=== PATIENT | female | born 1965 | race Caucasian/White ===

== ENCOUNTER 2016-10-11 13:30 | Emergency (ER) | payer OTHER ==
[~2016-10-11 13:30] MED LIST: AZIT250T6 PO; BENZ100C PO; CYCL10TA2 PO; CYCL5TAB PO; DULO20CA PO; GABA-586 PO; METH-37 PO; NITR100C62 PO; PRED20TA PO; PRED50TA PO; PROAIR RESPICL90 MCG IH; SIMV10TA3 PO; TRAM-29 PO; TRAM50TA PO
--- NOTE | 2016-10-11 14:25 | PHYS DOC ---
Past Medical History Past Medical History: Arthritis, Asthma, Depression, High Cholesterol, [place], Other Additional Past Medical Histor: CHRONIC BACK PAIN,R LEG FX Past Surgical History: Hysterectomy, Tubal ligation, Other Additional Past Surgical Histo: BACK, LEFT ELBOW Alcohol Use: None Drug Use: None Adult General Chief Complaint Chief Complaint: PAIN CONTROL HPI HPI Patient is a 51 year old female presents with chest pain, back pain, leg pain. Patient well-known to the emergency department for visits for pain. Chronic pain and leg low back. No trauma or other inciting event. The chest pain she says she has been having for the past 7 days. She describes an aching pain without clear aggravating or alleviating factors. She has taken some hydrocodone at home with insufficient relief. No other acute complaints. Review of Systems Review of Systems Constitutional: Denies fever or chills Eyes: Denies change in visual acuity or eye pain HENT: Denies nasal congestion or sore throat Respiratory: Denies cough or shortness of breath Cardiovascular: Chest pain GI: Denies abdominal pain, nausea, vomiting, bloody stools or diarrhea : Denies dysuria or hematuria Musculoskeletal: Chronic low back pain, chronic LLE pain Integument: Denies rash or skin lesions Neurologic: Denies headache, focal weakness or sensory changes Current Medications Current Medications Current Medications Medications (Trade) Dose Ordered Sig/Jayy Start Time Stop Time Status Last Admin Dose Admin Aspirin (Children'S Aspirin) 324 mg 1X ONCE 10/11/16 14:30 10/11/16 14:47 DC 10/11/16 14:50 324 MG Cyclobenzaprine HCl (Flexeril) 10 mg 1X ONCE 10/11/16 14:30 10/11/16 14:31 DC 10/11/16 14:51 10 MG Tramadol HCl (Ultram) 50 mg 1X ONCE 10/11/16 14:30 10/11/16 14:31 DC 10/11/16 14:51 50 MG Allergies Allergies Allergies Coded Allergies Type Severity Reaction Last Updated Verified acetaminophen Allergy Intermediate rash 09/26/16 Yes ibuprofen Allergy Intermediate rash 09/19/16 No naproxen Allergy Intermediate rash 09/19/16 No Physical Exam Physical Exam Constitutional: Well developed, well nourished, no acute distress, non-toxic appearance. [] HENT: Normocephalic, atraumatic, bilateral external ears normal, oropharynx moist, no oral exudates, nose normal. [] Eyes: PERRLA, EOMI, conjunctiva normal, no discharge. [] Neck: Normal range of motion, no tenderness, supple, no stridor. [] Cardiovascular:Heart rate regular rhythm, no murmur [] Lungs & Thorax: Bilateral breath sounds clear to auscultation [] Abdomen: Bowel sounds normal, soft, no tenderness, no masses, no pulsatile masses. [] Skin: Warm, dry, no erythema, no rash. [] Back: No tenderness, no CVA tenderness. [] Extremities: No tenderness, no cyanosis, no clubbing, ROM intact, no edema. [] Neurologic: Alert and oriented X 3, normal motor function, normal sensory function, no focal deficits noted. [] Psychologic: Affect normal, judgement normal, mood normal. [] Current Patient Data Vital Signs Vital Signs Date Time Temp Pulse Resp B/P Pulse Ox O2 Delivery O2 Flow Rate FiO2 10/11/16 15:41 82 15 96 10/11/16 13:48 98.6 131/73 Room Air 98.6 Lab Values Laboratory Tests Test 10/11/16 14:40 White Blood Count 13.2x10^3/uL (4.0-11.0) H Red Blood Count 4.09x10^6/uL (3.50-5.40) Hemoglobin 11.7g/dL (12.0-15.5) L Hematocrit 36.9% (36.0-47.0) Mean Corpuscular Volume 90fL (79-100) Mean Corpuscular Hemoglobin 29pg (25-35) Mean Corpuscular Hemoglobin Concent 32g/dL (31-37) Red Cell Distribution Width 15.4% (11.5-14.5) H Platelet Count 436x10^3/uL (140-400) H Neutrophils (%) (Auto) 69% (31-73) Lymphocytes (%) (Auto) 22% (24-48) L Monocytes (%) (Auto) 6% (0-9) Eosinophils (%) (Auto) 3% (0-3) Basophils (%) (Auto) 0% (0-3) Neutrophils # (Auto) 9.1x10^3uL (1.8-7.7) H Lymphocytes # (Auto) 2.9x10^3/uL (1.0-4.8) Monocytes # (Auto) 0.8x10^3/uL (0.0-1.1) Eosinophils # (Auto) 0.4x10^3/uL (0.0-0.7) Basophils # (Auto) 0.1x10^3/uL (0.0-0.2) Sodium Level 140mmol/L (136-145) Potassium Level 3.8mmol/L (3.5-5.1) Chloride Level 103mmol/L (98-107) Carbon Dioxide Level 31mmol/L (21-32) Anion Gap 6 (6-14) Blood Urea Nitrogen 11mg/dL (7-20) Creatinine 0.7mg/dL (0.6-1.0) Estimated GFR (Cockcroft-Gault) 88.2 Glucose Level 96mg/dL (70-99) Calcium Level 8.9mg/dL (8.5-10.1) Troponin I Quantitative < 0.017ng/mL (0.000-0.055) Laboratory Tests 10/11/16 14:40 Laboratory Tests 10/11/16 14:40 EKG EKG EKG (my read): sinus rhythm, rate 77, normal axis, intervals wnl, no acute ischemic changes Radiology/Procedures Radiology/Procedures CXR: Impression: No acute thoracic findings. Course & Med Decision Making Course & Med Decision Making Pertinent Labs and Imaging studies reviewed. (See chart for details) Patient is 51-year-old female who presents with chest pain, back pain, leg pain. Concern for drug-seeking behavior. Will check EKG, chest x-ray, labs. Dose of oral pain medication or muscle relaxant ordered for pain relief while in the emergency department. EKG normal per my read. Chest x-ray without acute pathology. Labs notable for slight leukocytosis. Troponin within normal limits; given duration of chest pain, this is sufficient to rule out PA. Discussed results with patient. Patient discharged with prescription for muscle relaxant ( she reports allergies to acetaminophen, ibuprofen, naproxen). I told patient I would not send her home with prescription for narcotic pain medication given repeated visits for chronic pain and discussed with her the need to follow-up with primary care physician. Provided a list of primary care physicians in the area. Discharged home with instructions for follow-up and return precautions. Dragon Disclaimer Dragon Disclaimer This electronic medical record was generated, in whole or in part, using a voice recognition dictation system. Departure Departure Impression: Primary Impression: Chronic pain Disposition: HOME, SELF-CARE Condition: STABLE Referrals: NO PCP (PCP) Patient Instructions: Chronic Back Pain, Chronic Pain Additional Instructions: Thank you for allowing us to provide care today in the Emergency Department. Take the provided medication as directed. Use caution when taking this medication as it can make you drowsy. Schedule a follow up appointment with a primary care doctor using the provided list. It is very important that you begin seeing a doctor that can help you with your chronic medical problems. Return promptly to the Emergency Department if you develop any new or concerning symptoms. Scripts Cyclobenzaprine Hcl 10 Mg [id number] Mg PO TID PRN MUSCLE SPASMS #15 TAB Prov:SHELLEY TOTH MD 10/11/16 SHELLEY TOTH MD Oct 11, 2016 14:24
[2016-10-11] MEDS ORDERED: ASPIRIN 81 MG TAB.CHEW PO ONE (14:30)
[2016-10-11] MEDS ORDERED: TRAMADOL 50 MG TABLET. PO ONE (14:30)
[2016-10-11] MEDS ORDERED: CYCLOBENZAPRINE 10 MG TABLET. PO ONE (14:30)
--- NOTE | 2016-10-11 14:57 | RAD ---
Indication: Chest pain and cough for 6 days Technique: Two-view chest radiograph was obtained. Comparison is from September 26, 2016. Findings: The lungs are clear. The cardiopulmonary silhouette is within normal limits. There is no pleural effusion. The bony structures are intact. Leads overlie the patient. Impression: No acute thoracic findings.
[2016-10-11 15:00] LABS: BASO # 0.1 x10^3/uL (0.0-0.2); BASO % 0 % (0-3); EOS % 3 % (0-3); HEMATOCRIT 36.9 % (36.0-47.0); HEMOGLOBIN 11.7 g/dL (12.0-15.5); LYMPH # 2.9 x10^3/uL (1.0-4.8); LYMPH % 22 % (24-48); MEAN CORPUSCULAR HEMOGLOBIN 29 pg (25-35); MEAN CORPUSCULAR HGB CONC 32 g/dL (31-37); MEAN CORPUSCULAR VOLUME 90 fL (79-100); MONO % 6 % (0-9); NEUT % 69 % (31-73); PLATELET COUNT 436 x10^3/uL (140-400); RED BLOOD COUNT 4.09 x10^6/uL (3.50-5.40); RED CELL DISTRIBUTION WIDTH 15.4 % (11.5-14.5); WHITE BLOOD COUNT 13.2 x10^3/uL (4.0-11.0)
[2016-10-11 15:05] LABS: CALCIUM 8.9 mg/dL (8.5-10.1); CREATININE 0.7 mg/dL (0.6-1.0); GFR 88.2; POTASSIUM 3.8 mmol/L (3.5-5.1)
[2016-10-11 15:11] VITALS: BP 123/75
[2016-10-11] MEDS ORDERED: CYCL10TA2 PO (16:07)
--- NOTE | 2016-10-11 17:24 | EKG ---
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
== END 2016-10-11 16:18 | disposition home or self-care (01) ==
LOC: ER 13:30
DX: G89.29 Other chronic pain (principal); R07.9 Chest pain, unspecified; M54.5 Low back pain; M79.605 Pain in left leg; E78.00 Pure hypercholesterolemia, unspecified; I25.2 Old myocardial infarction; J45.909 Unspecified asthma, uncomplicated; M19.90 Unspecified osteoarthritis, unspecified site; Z88.6 Allergy status to analgesic agent
CPT/HCPCS: 36415; 71020; 80048; 84484; 85027; 93005; 99285-25

== ENCOUNTER 2016-10-15 17:25 | Emergency (ER) | payer OTHER ==
[2016-10-15] MEDS ORDERED: MORPHINE SULFATE 2 MG/ML DISP.SYRIN. IV PRN (18:45)
[2016-10-15] MEDS ORDERED: ASPIRIN 81 MG TAB.CHEW PO ONE (18:45)
[2016-10-15] MEDS ORDERED: NITROGLYCERIN SUBLINGUAL 0.4 MG BOTTLE OF 25. SL PRN (18:45)
[2016-10-15 19:03] VITALS: BP 154/88
[2016-10-15 19:27] LABS: POTASSIUM ISTAT 4.2 mmol/L (3.5-5.0)
--- NOTE | 2016-10-15 19:56 | PHYS DOC ---
Past Medical History Past Medical History: Arthritis, Asthma, Depression, High Cholesterol, [place], Other Additional Past Medical Histor: CHRONIC BACK PAIN,R LEG FX Past Surgical History: Hysterectomy, Tubal ligation, Other Additional Past Surgical Histo: BACK, LEFT ELBOW Alcohol Use: None Drug Use: None Adult General Chief Complaint Chief Complaint: CHEST PAIN HPI HPI 51-year-old female presenting the emergency department with chest pain for the past 6 days. It is worse with breathing. She has a history of bronchitis. Pain is sharp worse with deep breaths and cough. No alleviating doctors present. She denies unilateral leg swelling hemoptysis personal or family history of DVT. She denies any blood clotting disorders. She denies recent surgery or immobilization. Review of Systems Review of Systems ROS negative for fevers chills abdominal pain nausea vomiting or diaphoresis. All other review of systems is negative unless otherwise noted in history of present illness. Current Medications Current Medications Current Medications Medications (Trade) Dose Ordered Sig/Jayy Start Time Stop Time Status Last Admin Dose Admin Aspirin (Children'S Aspirin) 324 mg 1X ONCE 10/15/16 18:45 10/15/16 19:07 DC Morphine Sulfate 2 mg PRN Q1HR PRN 10/15/16 18:45 10/15/16 19:07 DC Nitroglycerin (Nitrostat) 0.4 mg PRN Q5MIN PRN 10/15/16 18:45 10/15/16 19:07 DC Allergies Allergies Allergies Coded Allergies Type Severity Reaction Last Updated Verified acetaminophen Allergy Intermediate rash 09/26/16 Yes ibuprofen Allergy Intermediate rash 09/19/16 No naproxen Allergy Intermediate rash 09/19/16 No Physical Exam Physical Exam Constitutional: Well developed, well nourished, no acute distress, non-toxic appearance. HENT: Normocephalic, atraumatic, bilateral external ears normal, oropharynx moist, no oral exudates, nose normal. [] Eyes: PERRLA, EOMI, conjunctiva normal, no discharge. Neck: Normal range of motion, no tenderness, supple, no stridor. [] Cardiovascular:Heart rate regular rhythm, no murmur Lungs & Thorax: Bilateral breath sounds clear to auscultation [] Abdomen: Bowel sounds normal, soft, no tenderness, no masses, no pulsatile masses. [] Skin: Warm, dry, no erythema, no rash. Back: No tenderness, no CVA tenderness. [] Extremities: No tenderness, no cyanosis, no clubbing, ROM intact, no edema. Neurologic: Alert and oriented X 3, normal motor function, normal sensory function, no focal deficits noted. Psychologic: Affect normal, judgement normal, mood normal. [] Current Patient Data Vital Signs Vital Signs Date Time Temp Pulse Resp B/P Pulse Ox O2 Delivery O2 Flow Rate FiO2 10/15/16 19:03 97.9 80 12 154/88 100 Room Air 97.9 Lab Values Laboratory Tests Test 10/15/16 19:21 10/15/16 19:25 POC Troponin I 0.00ng/ml (<0.08) POC Hemoglobin 11.6g/dL (12-15) L POC Hematocrit 34% (36-40) L POC Sodium 141mmol/L (135-145) POC Potassium 4.2mmol/L (3.5-5.0) POC Chloride 105mmol/L (98-110) POC Total CO2 25mmol/L (23-32) Anion Gap 17mmol/L (6-14) H POC Blood Urea Nitrogen 19mg/dL (8-26) POC Creatinine 0.8mg/dL (0.5-1.4) Glucose Level 94mg/dL (70-99) POC Ionized Calcium (Fal[place]i) 1.11mmol/L (1.13-1.32) L Laboratory Tests 10/15/16 19:25 EKG EKG []EKG shows sinus rhythm with regular rate. Normal intervals. Normal axis. ST segments are congruent. Not suggestive of ACS. Reviewed by myself. Radiology/Procedures Radiology/Procedures Chest x-ray shows possible left lower lobe infiltrate. No pneumothorax. Course & Med Decision Making Course & Med Decision Making Pertinent Labs and Imaging studies reviewed. (See chart for details) 51-year-old female presenting to the emergency department with cough for the past week with chest pain. Vital signs afebrile. Unremarkable. Physical exam largely unremarkable. Labs showed negative troponin with the mild anemia. Otherwise were unremarkable. The patient's chest x-ray was consistent with a left lower lobe pneumonia. EKG was unremarkable. The patient was discharged home on azithromycin to follow-up with her PCP over the next 2-5 days. Dragon Disclaimer Dragon Disclaimer This electronic medical record was generated, in whole or in part, using a voice recognition dictation system. Departure Departure Impression: Primary Impression: Cough Additional Impressions: Chest pain PNA (pneumonia) Disposition: 01 HOME, SELF-CARE Condition: STABLE Referrals: NO PCP (PCP) TONIO RUIZ MD 2-3 DAYS Patient Instructions: Chest Pain (Nonspecific) Additional Instructions: Thank you for allowing us to participate in your care today. Followup with your primary care physician in 3 days if your symptoms do not improve. If you do not have a primary care provider you can ask for a list of our primary care providers. Return to the emergency department you have any new or concerning findings. This should be evaluated by the primary care physician and any necessary consulting services for continued management within a few days after discharge. Return to emergency room if you have any new or concerning symptoms including but not limited to fever, chills, nausea, vomiting, intractable pain, any new rashes, chest pain, shortness of air, uncontrolled bleeding, difficulty breathing, and/or vision loss. Scripts Azithromycin (Azithromycin Tablet)250 Mg [id number] Mg PO DAILY ANTI-BIOTIC #6 TAB Take 2 tablets today and then take one tablet daily to finish your prescription. Prov:HANNAH ORTIZ MD 10/15/16 Problem Qualifiers HANNAH ORTIZ MD Oct 15, 2016 19:56
[2016-10-15] MEDS ORDERED: AZIT250T6 PO (20:02)
--- NOTE | 2016-10-15 21:28 | EKG ---
[facility] [address] [place] [address] Test Date: 2016-10-15 Test Time: 17:35:38 Pat Name: JACKY GLASER Department: Room: Gender: Female Poly Operator: : 1965 Requested By: HANNAH ORTIZ Order Number: [id number] Reading MD: Connie Arredondo Measurements Intervals [place] Rate: 91 P: 38 MA: 152 QRS: 35 QRSD: 78 T: 35 QT: 338 QTc: 417 Interpretive Statements SINUS RHYTHM NORMAL ECG RI6.01 Unconfirmed report Compared to ECG 10/11/2016 15:10:57 No significant changes Electronically Signed On 10-18-2016 23:27:30 ENGINEERING ADMINISTRATOR by Connie Arredondo
--- NOTE | 2016-10-16 08:30 | RAD ---
Indication chest pain. A single view of the chest was obtained and is compared to a study 4 days earlier. The heart and pulmonary vessels appear normal. The lungs are clear. There has not been a significant change in the appearance of the chest compared to the prior exam. IMPRESSION: No acute or focal process. No significant change
== END 2016-10-15 20:09 | disposition home or self-care (01) ==
LOC: ER 17:25
DX: J18.9 Pneumonia, unspecified organism (principal); R07.1 Chest pain on breathing; R05 Cough; J45.909 Unspecified asthma, uncomplicated; E78.00 Pure hypercholesterolemia, unspecified; G89.29 Other chronic pain; I25.2 Old myocardial infarction; M19.90 Unspecified osteoarthritis, unspecified site; Z88.6 Allergy status to analgesic agent
CPT/HCPCS: 71010; 80047; 84484; 93005; 99284-25

== ENCOUNTER 2016-10-16 04:31 | Emergency (ER) | payer OTHER ==
[~2016-10-16] VITALS: Ht 165.1 cm; Wt 90.7 kg
[2016-10-16 04:38] VITALS: BP 145/85
--- NOTE | 2016-10-16 04:41 | PHYS DOC ---
Past Medical History Past Medical History: Arthritis, Asthma, Depression, High Cholesterol, [place], Other Additional Past Medical Histor: CHRONIC BACK PAIN,R LEG FX Past Surgical History: Hysterectomy, Tubal ligation, Other Additional Past Surgical Histo: BACK, LEFT ELBOW Alcohol Use: None Drug Use: None Adult General Chief Complaint Chief Complaint: COUGH HPI HPI Patient is a 51 year old female who presents with continued cough since evaluation on 10/15/2016. She notes blood streaking in her sputum tonight, so she called EMS. She notes central chest pain with cough. She denies dyspnea, leg pain or swelling, palpitations, diaphoresis, nausea or vomiting, fever or chills. She also notes chronic back pain and is asking for narcotic pain medicine. She was prescribed azithromycin on 10/15/2016 from this emergency department and she has not filled this prescription yet. Review of Systems Review of Systems Constitutional: Denies fever or chills [] Eyes: Denies change in visual acuity, redness, or eye pain [] HENT: Denies nasal congestion or sore throat [] Respiratory: Denies shortness of breath [] Cardiovascular: No additional information not addressed in HPI [] GI: Denies abdominal pain, nausea, vomiting, bloody stools or diarrhea [] : Denies dysuria or hematuria [] Musculoskeletal: Denies joint pain [] Integument: Denies rash or skin lesions [] Neurologic: Denies headache, focal weakness or sensory changes [] Endocrine: Denies polyuria or polydipsia [] Allergies Allergies Allergies Coded Allergies Type Severity Reaction Last Updated Verified acetaminophen Allergy Intermediate rash 09/26/16 Yes ibuprofen Allergy Intermediate rash 09/19/16 No naproxen Allergy Intermediate rash 09/19/16 No Physical Exam Physical Exam Constitutional: Well developed, well nourished, no acute distress, non-toxic appearance. [] HENT: Normocephalic, atraumatic, bilateral external ears normal, oropharynx moist, no oral exudates, nose normal. [] Eyes: PERRLA, EOMI. [] Neck: Normal range of motion, supple. [] Cardiovascular:Heart rate regular rhythm [] Lungs & Thorax: Bilateral breath sounds clear to auscultation [] Abdomen: Bowel sounds normal, soft, no tenderness. [] Skin: Warm, dry, no erythema, no rash. [] Back: Normal range of motion. [] Extremities: No tenderness, ROM intact, no edema, no palpable cord. Ambulatory with no visible discomfort or dyspnea. [] Neurologic: Alert and oriented X 3, normal motor function, normal sensory function, no focal deficits noted. [] Psychologic: Affect normal, judgement normal, mood normal. [] Course & Med Decision Making Course & Med Decision Making Pertinent Labs and Imaging studies reviewed. (See chart for details) Upon review of her records, she was given azithromycin yesterday for cough and concern of left lower lobe pneumonia. Her sputum is blood streaked minimally. I reassured her that this will improve if she takes her antibiotics as prescribed. She continues to ask for narcotic pain medicine for her chronic back pain. I have discussed we will not treat chronic pain through the emergency department with narcotic pain medicines. I encouraged her to follow- up with her primary care doctor. Return precautions given. She understands and agrees with plan. Dragon Disclaimer Dragon Disclaimer This electronic medical record was generated, in whole or in part, using a voice recognition dictation system. Departure Departure Impression: Primary Impression: Cough Additional Impression: Drug-seeking behavior Disposition: 01 HOME, SELF-CARE Condition: STABLE Referrals: NO PCP (PCP) Patient Instructions: Bronchitis, [id number] Additional Instructions: Take the antibiotics you were prescribed yesterday. Follow-up with your primary care doctor for management of long-term pain. Return for any concerns. Problem Qualifiers Myke CARRERO MD Oct 16, 2016 04:41
== END 2016-10-16 04:45 | disposition home or self-care (01) ==
LOC: ER 04:31
DX: R05 Cough (principal); R07.89 Other chest pain; M54.9 Dorsalgia, unspecified; G89.29 Other chronic pain; J45.909 Unspecified asthma, uncomplicated; M19.90 Unspecified osteoarthritis, unspecified site; E78.00 Pure hypercholesterolemia, unspecified; I25.2 Old myocardial infarction; Z76.5 Malingerer [conscious simulation]; Z98.51 Tubal ligation status; Z90.710 Acquired absence of both cervix and uterus; Z88.6 Allergy status to analgesic agent; Z88.8 Allergy status to other drugs, medicaments and biological substances
CPT/HCPCS: 99282; 99283

== ENCOUNTER 2016-11-07 15:55 | Emergency (ER) | payer OTHER ==
[~2016-11-07] VITALS: Ht 152.4 cm; Wt 90.7 kg
[2016-11-07 16:05] VITALS: BP 116/78
--- NOTE | 2016-11-07 16:18 | PHYS DOC ---
Past Medical History Past Medical History: Arthritis, Asthma, Depression, High Cholesterol, [place], Other Additional Past Medical Histor: CHRONIC BACK PAIN,R LEG FX Past Surgical History: Hysterectomy, Tubal ligation, Other Additional Past Surgical Histo: BACK, LEFT ELBOW Alcohol Use: None Drug Use: None Adult General Chief Complaint Chief Complaint: MULTIPLE COMPLAINTS HPI HPI Patient is a 51 year old female well known to the ED who presents with acute on chronic chest, back, and LLE pain. Patient reports since this morning she has had increase of the chronic aching pain she feels in her chest, back, and LLE. No SOB. No clear inciting or aggravating factors. She took a baby ASA this morning but has not taken anything for pain as she says she has run out of pain medication at home. Patient says she has an appointment with a primary care physician in November but is unable to wait that long to get pain medicine. Review of Systems Review of Systems Constitutional: Denies fever or chills Eyes: Denies change in visual acuity or eye pain HENT: Denies nasal congestion or sore throat Respiratory: Denies cough or shortness of breath Cardiovascular: Acute on chronic anterior chest pain GI: Denies abdominal pain, nausea, vomiting, bloody stools or diarrhea : Denies dysuria or hematuria Musculoskeletal: Back pain, LLE pain Integument: Denies rash or skin lesions Neurologic: Denies headache, focal weakness or sensory changes Current Medications Current Medications Current Medications Medications (Trade) Dose Ordered Sig/Jayy Start Time Stop Time Status Last Admin Dose Admin Aspirin (Children'S Aspirin) 324 mg 1X ONCE 11/07/16 16:45 11/07/16 16:46 DC 11/07/16 16:32 324 MG Tramadol HCl (Ultram) 50 mg 1X ONCE 11/07/16 17:45 11/07/16 17:45 DC 11/07/16 17:34 50 MG Allergies Allergies Allergies Coded Allergies Type Severity Reaction Last Updated Verified acetaminophen Allergy Intermediate rash 09/26/16 Yes ibuprofen Allergy Intermediate rash 09/19/16 No naproxen Allergy Intermediate rash 09/19/16 No Physical Exam Physical Exam Constitutional: Well developed, well nourished, no acute distress, non-toxic appearance HENT: Normocephalic, atraumatic, bilateral external ears normal Eyes: EOMI, conjunctiva normal, no discharge Neck: Normal range of motion, no stridor Cardiovascular: Heart rate normal, regular rhythm, no murmur Lungs & Thorax: Bilateral breath sounds clear to auscultation Abdomen: Bowel sounds normal, soft, non-distended, no TTP Skin: Warm, dry, no erythema, no rash Back: Generalized TTP; no deformity, stepoff, or skin lesion noted Extremities: No obvious deformity, no edema. LLE with 2+ DP pulse, motor function and sensation to light touch intact Neurologic: Alert and oriented X 3, no gross deficits noted Current Patient Data Vital Signs Vital Signs Date Time Temp Pulse Resp B/P Pulse Ox O2 Delivery O2 Flow Rate FiO2 11/07/16 17:34 18 96 Room Air 11/07/16 16:05 98.2 109 116/78 98.2 Lab Values Laboratory Tests Test 11/07/16 16:27 White Blood Count 9.6x10^3/uL (4.0-11.0) Red Blood Count 4.40x10^6/uL (3.50-5.40) Hemoglobin 12.7g/dL (12.0-15.5) Hematocrit 39.2% (36.0-47.0) Mean Corpuscular Volume 89fL (79-100) Mean Corpuscular Hemoglobin 29pg (25-35) Mean Corpuscular Hemoglobin Concent 33g/dL (31-37) Red Cell Distribution Width 15.6% (11.5-14.5) H Platelet Count 454x10^3/uL (140-400) H Neutrophils (%) (Auto) 65% (31-73) Lymphocytes (%) (Auto) 26% (24-48) Monocytes (%) (Auto) 7% (0-9) Eosinophils (%) (Auto) 2% (0-3) Basophils (%) (Auto) 1% (0-3) Neutrophils # (Auto) 6.2x10^3uL (1.8-7.7) Lymphocytes # (Auto) 2.5x10^3/uL (1.0-4.8) Monocytes # (Auto) 0.6x10^3/uL (0.0-1.1) Eosinophils # (Auto) 0.2x10^3/uL (0.0-0.7) Basophils # (Auto) 0.1x10^3/uL (0.0-0.2) Sodium Level 141mmol/L (136-145) Potassium Level 3.8mmol/L (3.5-5.1) Chloride Level 103mmol/L (98-107) Carbon Dioxide Level 26mmol/L (21-32) Anion Gap 12 (6-14) Blood Urea Nitrogen 22mg/dL (7-20) H Creatinine 1.0mg/dL (0.6-1.0) Estimated GFR (Cockcroft-Gault) 58.5 Glucose Level 104mg/dL (70-99) H Calcium Level 9.2mg/dL (8.5-10.1) Troponin I Quantitative < 0.017ng/mL (0.000-0.055) Laboratory Tests 11/07/16 16:27 Laboratory Tests 11/07/16 16:27 EKG EKG EKG (my read): sinus tachycardia, rate 107, normal axis, no acute ischemic changes Radiology/Procedures Radiology/Procedures CXR (my read): No significant change from prior Course & Med Decision Making Course & Med Decision Making Pertinent Labs and Imaging studies reviewed. (See chart for details) Patient is 51 year old female who presents with c/o acute on chronic pain in her chest, back, and LLE. No concerning findings on physical exam. Concern for drug-seeking behavior. Will screen with EKG, CXR, labs. Oral pain medication ( tramadol) ordered for pain relief while in ED. EKG and CXR ok per my read. Labs unremarkable, including troponin wnl. Discussed results with patient. Will plan discharge home (without rx for pain meds) after discussion of importance of seeing PCP for management of chronic pain. Given instructions for follow up and return precautions. Dragon Disclaimer Dragon Disclaimer This electronic medical record was generated, in whole or in part, using a voice recognition dictation system. Departure Departure Impression: Primary Impression: Chronic pain Disposition: 01 HOME, SELF-CARE Condition: STABLE Referrals: NO PCP (PCP) Patient Instructions: Chronic Pain, Chronic Pain Management Additional Instructions: Thank you for allowing us to provide care today in the Emergency Department. Schedule a follow up appointment with a primary care doctor using the provided list for further management of your chronic pain. Return promptly to the Emergency Department if you develop any new or concerning symptoms. SHELLEY TOTH MD Nov 07, 2016 16:18
--- NOTE | 2016-11-07 16:32 | EKG ---
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
[2016-11-07 16:36] LABS: BASO # 0.1 x10^3/uL (0.0-0.2); BASO % 1 % (0-3); EOS % 2 % (0-3); HEMATOCRIT 39.2 % (36.0-47.0); HEMOGLOBIN 12.7 g/dL (12.0-15.5); LYMPH # 2.5 x10^3/uL (1.0-4.8); LYMPH % 26 % (24-48); MEAN CORPUSCULAR HEMOGLOBIN 29 pg (25-35); MEAN CORPUSCULAR HGB CONC 33 g/dL (31-37); MEAN CORPUSCULAR VOLUME 89 fL (79-100); MONO % 7 % (0-9); NEUT % 65 % (31-73); PLATELET COUNT 454 x10^3/uL (140-400); RED CELL DISTRIBUTION WIDTH 15.6 % (11.5-14.5); WHITE BLOOD COUNT 9.6 x10^3/uL (4.0-11.0)
[2016-11-07] MEDS ORDERED: ASPIRIN 81 MG TAB.CHEW PO ONE (16:45)
[2016-11-07] MEDS ORDERED: TRAMADOL 50 MG TABLET. PO ONE ×2 (16:45→17:45)
[2016-11-07 16:47] LABS: CALCIUM 9.2 mg/dL (8.5-10.1); GFR 58.5; POTASSIUM 3.8 mmol/L (3.5-5.1)
--- NOTE | 2016-11-08 08:14 | RAD ---
EXAM: Chest, 2 views. HISTORY: Chest pain. COMPARISON: 10/15/2016. FINDINGS: Frontal and lateral views of the chest are obtained. There is no infiltrate, effusion or pneumothorax. The heart is normal in size.. IMPRESSION: No acute pulmonary finding.
[2016-11-08] MEDS ORDERED: PRED50TA PO (17:59)
== END 2016-11-07 17:37 | disposition home or self-care (01) ==
LOC: ER 15:55
DX: G89.29 Other chronic pain (principal); M79.605 Pain in left leg; M54.9 Dorsalgia, unspecified; R07.89 Other chest pain; M19.90 Unspecified osteoarthritis, unspecified site; J45.909 Unspecified asthma, uncomplicated; F32.9 Major depressive disorder, single episode, unspecified; E78.00 Pure hypercholesterolemia, unspecified; I25.2 Old myocardial infarction; Z88.8 Allergy status to other drugs, medicaments and biological substances
CPT/HCPCS: 36415; 71020; 80048; 84484; 85027; 93005; 99285-25

== ENCOUNTER 2016-11-08 17:13 | Emergency (ER) | payer OTHER ==
[~2016-11-08] VITALS: Ht 165.1 cm; Wt 76.2 kg
[2016-11-08 17:35] VITALS: BP 134/80
[2016-11-08] MEDS ORDERED: PRED50TA PO (17:59)
--- NOTE | 2016-11-08 17:59 | PHYS DOC ---
Past Medical History Past Medical History: Arthritis, Asthma, Depression, High Cholesterol, [place], Other Additional Past Medical Histor: CHRONIC BACK PAIN,R LEG FX Past Surgical History: Hysterectomy, Tubal ligation, Other Additional Past Surgical Histo: BACK, LEFT ELBOW Alcohol Use: None Drug Use: None Adult General Chief Complaint Chief Complaint: CHEST PAIN HPI HPI 51-year-old female who presents after being seen yesterday for ongoing chest pain that she states is worse with cough and deep breathing. She was seen yesterday and had a chest x-ray and EKG and lab work that was unrevealing. She was sent out with any prescriptions as there is concern for drug-seeking behavior. At this time is requesting tramadol. I stated I would be willing to give her one dose in the department but that I would not be writing her any prescriptions. She is agreeable to this. She is allergic to every over-the- counter anti-inflammatory medication and so I offered her a dose of prednisone as I believe the etiology of her symptoms are likely inflammatory in nature. She states her pain is a 10 out of 10 on the pain scale. Review of Systems Review of Systems Constitutional: Denies fever or chills [] Eyes: Denies change in visual acuity, redness, or eye pain [] HENT: Denies nasal congestion or sore throat [] Respiratory: Has cough, denies shortness of breath [] Cardiovascular: No additional information not addressed in HPI [] GI: Denies abdominal pain, nausea, vomiting, bloody stools or diarrhea [] : Denies dysuria or hematuria [] Musculoskeletal: Has back pain, denies joint pain [] Integument: Denies rash or skin lesions [] Neurologic: Denies headache, focal weakness or sensory changes [] Endocrine: Denies polyuria or polydipsia [] Current Medications Current Medications Current Medications Medications (Trade) Dose Ordered Sig/[facility] Start Time Stop Time Status Last Admin Dose Admin Prednisone (Prednisone) 50 mg 1X ONCE 11/08/16 18:00 11/08/16 18:01 DC 11/08/16 17:56 50 MG Tramadol HCl (Ultram) 50 mg 1X ONCE 11/08/16 18:00 11/08/16 18:01 DC 11/08/16 17:56 50 MG Allergies Allergies Allergies Coded Allergies Type Severity Reaction Last Updated Verified acetaminophen Allergy Intermediate rash 09/26/16 Yes ibuprofen Allergy Intermediate rash 09/19/16 No naproxen Allergy Intermediate rash 09/19/16 No Physical Exam Physical Exam Constitutional: Well developed, well nourished, no acute distress, non-toxic appearance. [] HENT: Normocephalic, atraumatic, bilateral external ears normal, oropharynx moist, no oral exudates, nose normal. [] Eyes: PERRLA, EOMI, conjunctiva normal, no discharge. [] Neck: Normal range of motion, no tenderness, supple, no stridor. [] Cardiovascular:Heart rate regular rhythm, no murmur [] Lungs & Thorax: Bilateral breath sounds clear to auscultation [] Abdomen: Bowel sounds normal, soft, no tenderness, no masses, no pulsatile masses. [] Skin: Warm, dry, no erythema, no rash. [] Back: No tenderness, no CVA tenderness. [] Extremities: No tenderness, no cyanosis, no clubbing, ROM intact, no edema. [] Neurologic: Alert and oriented X 3, normal motor function, normal sensory function, no focal deficits noted. [] Psychologic: Affect normal, judgement normal, mood normal. [] Current Patient Data Vital Signs Vital Signs Date Time Temp Pulse Resp B/P Pulse Ox O2 Delivery O2 Flow Rate FiO2 11/08/16 17:56 14 95 Room Air 11/08/16 17:35 98.9 95 134/80 98.9 Lab Values Laboratory Tests Test 11/08/16 17:38 POC Troponin I 0.00ng/ml (<0.08) EKG EKG EKG as interpreted by me shows a sinus rhythm. This is a normal EKG with an approximate rate of 77 bpm. There are no obvious ischemic findings on this EKG. Radiology/Procedures Radiology/Procedures One view of the chest as interpreted by me does not reveal an acute cardiopulmonary process as interpreted by me. Course & Med Decision Making Course & Med Decision Making Pertinent Labs and Imaging studies reviewed. (See chart for details) This 51-year-old female had a negative troponin, EKG and chest x-ray as well did not reveal any acute abnormalities. Her symptoms are likely inflammatory in nature due to an ongoing cough. I prescribed her a course of prednisone and instructed her to follow closely with her primary care doctor for her ongoing pain as well as her chronic back pain. She was discharged without incident. Zeus Disclaimer Fredyon Disclaimer This electronic medical record was generated, in whole or in part, using a voice recognition dictation system. Departure Departure Impression: Primary Impression: Costochondritis Additional Impression: Bronchitis Disposition: 01 HOME, SELF-CARE Condition: IMPROVED Referrals: NO PCP (PCP) Patient Instructions: Costochondritis, [id number] Additional Instructions: Please take your steroid as prescribed for your chest pain. Follow up with your primary doctor in the next 2-3 days for your pain. Return to the ER if you develop any worsening of your symptoms. Scripts Prednisone 50 Mg Tablet1 Tab PO DAILY #5 TAB Prov:BRANNON GERARDO DO 11/08/16 Problem Qualifiers BRANNON GERARDO DO Nov 08, 2016 17:59
[2016-11-08] MEDS ORDERED: PREDNISONE 20 MG TABLET PO ONE (18:00)
[2016-11-08] MEDS ORDERED: TRAMADOL 50 MG TABLET. PO ONE (18:00)
--- NOTE | 2016-11-09 06:35 | EKG ---
[facility] [address] [place] [address] Test Date: 2016-11-08 Test Time: 17:32:03 Pat Name: JACKY GLASER Department: Room: Gender: F Human Service Coordinator: : 1965 Requested By: BRANNON GERARDO Order Number: [id number] Reading MD: Jose M Red Measurements Intervals [place] Rate: 77 P: 15 MT: 150 QRS: 51 QRSD: 80 T: 49 QT: 340 QTc: 386 Interpretive Statements SINUS RHYTHM Electronically Signed On 11-09-2016 10:44:03 TEACHER EDUCATION INSTRUCTOR by Jose M Red
--- NOTE | 2016-11-09 08:06 | RAD ---
Portable chest, 11/08/2016: History: Chest pain Comparison is made to a study from 11/07/2016. The heart size and pulmonary vascularity are normal. There is calcific plaquing of aorta. No pulmonary infiltrates are seen. There is no evidence of pleural fluid. Mild spurring is present in the spine IMPRESSION: No acute cardiopulmonary abnormality is detected.
== END 2016-11-08 18:05 | disposition home or self-care (01) ==
LOC: ER 17:13
DX: M94.0 Chondrocostal junction syndrome [Tietze] (principal); J40 Bronchitis, not specified as acute or chronic; G89.29 Other chronic pain; M19.90 Unspecified osteoarthritis, unspecified site; J45.909 Unspecified asthma, uncomplicated; F32.9 Major depressive disorder, single episode, unspecified; E78.00 Pure hypercholesterolemia, unspecified; I25.2 Old myocardial infarction; Z88.8 Allergy status to other drugs, medicaments and biological substances
CPT/HCPCS: 71010; 84484; 93005; 99284; J7512

== ENCOUNTER 2016-11-22 12:48 | Emergency (ER) | payer OTHER ==
[2016-11-22] MEDS ORDERED: OXYCODONE/APAP 5/325 TABLET. PO ONE (15:15)
[2016-11-22] MEDS ORDERED: DIPHTH,PERTUSS(ACELL),TET TOX 0.5 ML DISP.SYRIN. VAX IM ONE (15:15)
[2016-11-22] MEDS ORDERED: CYCLOBENZAPRINE 10 MG TABLET. PO ONE (15:15)
--- NOTE | 2016-11-22 15:23 | PHYS DOC ---
Past Medical History Past Medical History: Arthritis, Asthma, Depression, High Cholesterol, [place], Other Additional Past Medical Histor: CHRONIC BACK PAIN,R LEG FX Past Surgical History: Hysterectomy, Tubal ligation, Other Additional Past Surgical Histo: BACK, LEFT ELBOW Alcohol Use: None Drug Use: None Adult General Chief Complaint Chief Complaint: LOWER EXTREMITY SWELLING HPI HPI Patient is a 51 year old female with history of high cholesterol, depression, anxiety, who presents with bilateral lower extremity swelling and redness of the right lower leg that she noted yesterday. Patient denies any trauma. Denies any fever. She is also complaining of a sore throat for 2 days. Patient denies any coughing or congestion. Denies any fever. She is also complaining of her chronic bilateral low back pain radiating to bilateral lower extremities. Denies any loss of bowel bladder function. Denies any numbness or tingling to bilateral lower extremities. Review of Systems Review of Systems Constitutional: Denies fever or chills [] Eyes: Denies change in visual acuity, redness, or eye pain [] HENT: sore throat [] Respiratory: Denies cough or shortness of breath [] Cardiovascular: No additional information not addressed in HPI [] GI: Denies abdominal pain, nausea, vomiting, bloody stools or diarrhea [] : Denies dysuria or hematuria [] Musculoskeletal: Chronic low back pain Integument: Bilateral lower extremity swelling with redness on the right leg Neurologic: Denies headache, focal weakness or sensory changes [] Endocrine: Denies polyuria or polydipsia [] Current Medications Current Medications Current Medications Medications (Trade) Dose Ordered Sig/[facility] Start Time Stop Time Status Last Admin Dose Admin Cyclobenzaprine HCl (Flexeril) 10 mg 1X ONCE 11/22/16 15:15 11/22/16 15:16 DC 11/22/16 15:26 10 MG Diphtheria/ Tetanus/Acell Pertussis (Boostrix) 0.5 ml ONCE ONCE 11/22/16 15:15 11/22/16 15:16 DC 11/22/16 15:44 0.5 ML Oxycodone/ Acetaminophen (Percocet 5/325) 2 tab 1X ONCE 11/22/16 15:15 11/22/16 15:16 DC 11/22/16 15:26 2 TAB Allergies Allergies Allergies Coded Allergies Type Severity Reaction Last Updated Verified acetaminophen Allergy Intermediate rash 09/26/16 Yes ibuprofen Allergy Intermediate rash 09/19/16 No naproxen Allergy Intermediate rash 09/19/16 No Physical Exam Physical Exam Constitutional: Well developed, well nourished, no acute distress, non-toxic appearance. [] HENT: Normocephalic, atraumatic, bilateral external ears normal, oropharynx moist, no oral exudates, nose normal. [] Eyes: PERRLA, EOMI, conjunctiva normal, no discharge. [] Neck: Normal range of motion, no tenderness, supple, no stridor. [] Cardiovascular:Heart rate regular rhythm, no murmur [] Lungs & Thorax: Bilateral breath sounds clear to auscultation [] Abdomen: Bowel sounds normal, soft, no tenderness, no masses, no pulsatile masses. [] Skin: Warm, dry, no erythema, no rash. [] Back: Mid lower lumbar spine with an old healed surgical incision. Diffuse tenderness paraspinal muscles of the bilateral lower lumbar spine, no midline tenderness, no CVA tenderness. [] Extremities: +2 right pedal edema, +1 left pedal edema, this scattered small amount of cellulitis of the right lower extremity. Left lower extremity with trace amount of cellulitis. Bilateral legs are warm to touch. +2 bilateral pedal pulses. Cap refill less than 2 seconds. Negative Homans sign bilaterally. Neurologic: Alert and oriented X 3, normal motor function, normal sensory function, no focal deficits noted. [] Psychologic: Affect normal, judgement normal, mood normal. [] Current Patient Data Vital Signs Vital Signs Date Time Temp Pulse Resp B/P Pulse Ox O2 Delivery O2 Flow Rate FiO2 11/22/16 15:26 14 99 11/22/16 14:36 98.3 100 Room Air 98.3 EKG EKG [] Radiology/Procedures Radiology/Procedures [] Course & Med Decision Making Course & Med Decision Making Pertinent Labs and Imaging studies reviewed. (See chart for details) Patient is in the ED with bilateral lower extremity swelling. She does have cellulitis on the right lower extremity as well as trace cellulitis on the left leg.She is also complaining of a sore throat and her chronic back pain. She was given tetanus shot in the ED. Preliminary red by radiologist tech for bilateral venous Dopplers is negative. Patient was discharged with clindamycin for 10 days. She was instructed to keep her lower extremity clean and dry. Follow-up with her own doctor in one week. Zeus Disclaimer Fredyon Disclaimer This electronic medical record was generated, in whole or in part, using a voice recognition dictation system. Departure Departure Impression: Primary Impression: Cellulitis of both lower extremities Additional Impressions: Chronic back pain Pharyngitis, acute Disposition: 01 HOME, SELF-CARE Condition: STABLE Referrals: NO PCP (PCP) Follow-up with your own doctor in the next 7 days Patient Instructions: Cellulitis Additional Instructions: You have cellulitis to bilateral lower extremities. We highly recommend you complete all your antibiotics. Follow-up with your own doctor in the next 7 days. Scripts Oxycodone/Apap 5-325 (Percocet 5-325 Mg Tablet)1 Each Tablet1-2 Tab PO Q4-6HRS # 14 TAB MUST FILL ANITIBIOTICS BEFORE PAIN MEDICINES Prov:MEMO NELSON APRN 11/22/16 Cyclobenzaprine Hcl 10 Mg Tablet1 Tab PO TID #30 TAB Prov:MEMO NELSON APRN 11/22/16 Clindamycin Hcl 150 Mg Capsule3 Cap PO TID #90 CAP Prov:MEMO NELSON APRN 11/22/16 Problem Qualifiers Additional Impressions: Chronic back pain Back pain location: low back pain Back pain laterality: unspecified Sciatica presence: without sciatica Qualified Code: M54.5 - Low back pain Pharyngitis, acute Pharyngitis/tonsillitis etiology: unspecified etiology Qualified Code: J02.9 - Acute pharyngitis, unspecified MEMO NELSON APRN Nov 22, 2016 15:23
[2016-11-22] MEDS ORDERED: OXYC-323 PO (16:00)
[2016-11-22] MEDS ORDERED: CYCL10TA2 PO (16:00)
[2016-11-22] MEDS ORDERED: CLIN-44 PO (16:00)
[2016-11-22 16:09] VITALS: BP 132/70
--- NOTE | 2016-11-22 16:10 | RAD ---
Bilateral lower extremity venous Doppler ultrasound exam HISTORY:Edema, leg swelling COMPARISON: None FINDINGS: Multiple grayscale and color images and spectral analysis waveform images were acquired of the bilateral lower extremity veins to evaluate for the presence of DVT. Normal compression, color-flow, and augmentation is demonstrated from the bilateral common femoral to the popliteal veins. There is normal phasicity. There is normal color flow of the proximal profunda femoris and greater saphenous veins. There is normal color flow in segments of calf veins. Impression: 1. There is no evidence of deep venous thrombosis from the bilateral common femoral to popliteal veins.
== END 2016-11-22 16:10 | disposition home or self-care (01) ==
LOC: ER 12:48
DX: L03.115 Cellulitis of right lower limb (principal); L03.116 Cellulitis of left lower limb; M54.5 Low back pain; J02.9 Acute pharyngitis, unspecified; E78.00 Pure hypercholesterolemia, unspecified; G89.29 Other chronic pain; F32.9 Major depressive disorder, single episode, unspecified; F41.9 Anxiety disorder, unspecified; M19.90 Unspecified osteoarthritis, unspecified site; J45.909 Unspecified asthma, uncomplicated; I25.2 Old myocardial infarction; Z90.710 Acquired absence of both cervix and uterus; Z98.51 Tubal ligation status; Z88.8 Allergy status to other drugs, medicaments and biological substances
CPT/HCPCS: 90471; 90715; 93970; 99284-25

== ENCOUNTER 2016-11-25 13:59 | Emergency (ER) | payer OTHER ==
[~2016-11-25] VITALS: Ht 165.1 cm; Wt 90.7 kg
[~2016-11-25 13:59] MED LIST changes: +CLIN-44 PO; +OXYC-323 PO
[2016-11-25 14:55] VITALS: BP 132/77
--- NOTE | 2016-11-25 15:08 | PHYS DOC ---
Past Medical History Past Medical History: Arthritis, Asthma, Depression, High Cholesterol, [place], Other Additional Past Medical Histor: CHRONIC BACK PAIN,R LEG FX Past Surgical History: Hysterectomy, Tubal ligation, Other Additional Past Surgical Histo: BACK, LEFT ELBOW Alcohol Use: None Drug Use: None Adult General Chief Complaint Chief Complaint: FLU SYMPTOM HPI HPI Patient is a 51 year old female who presents with her daughter for sore throat , fever, cough since yesterday.Daughter has same symptoms. Also c/o chronic back pain and that she is out of her Tramadol. Denies chest pain, shortness of air. No interventions prior to arrival. Review of Systems Review of Systems Constitutional: Fever 2 days Eyes: Denies change in visual acuity, redness, or eye pain HENT: nasal congestion or sore throat 2 days. Respiratory: Denies shortness of breath. COugh 2 days Cardiovascular: No additional information not addressed in HPI [] GI: Denies abdominal pain, nausea, vomiting, bloody stools or diarrhea : Denies dysuria or hematuria Musculoskeletal: Denies back pain or joint pain Integument: Denies rash or skin lesions Neurologic: Denies headache, focal weakness or sensory changes Endocrine: Denies polyuria or polydipsia Allergies Allergies Allergies Coded Allergies Type Severity Reaction Last Updated Verified acetaminophen Allergy Intermediate rash 09/26/16 Yes ibuprofen Allergy Intermediate rash 09/19/16 No naproxen Allergy Intermediate rash 09/19/16 No Physical Exam Physical Exam Constitutional: Well developed, well nourished, no acute distress, non-toxic appearance. HENT: Normocephalic, atraumatic, bilateral external ears normal, oropharynx moist, no oral exudates, nose normal. Tonsils 2+ without exudate. Eyes: PERRLA, EOMI, conjunctiva normal, no discharge. Neck: Normal range of motion, no tenderness, supple, no stridor. Cardiovascular:Heart rate regular rhythm, no murmur Lungs & Thorax: Bilateral breath sounds clear to auscultation Abdomen: Bowel sounds normal, soft, no tenderness, no masses, no pulsatile masses. Skin: Warm, dry, no erythema, no rash. Back: No CVA tenderness. Lumbar paraspinous tenderness, no midline tenderness Extremities: No tenderness, no cyanosis, no clubbing, ROM intact, no edema. Neurologic: Alert and oriented X 3, normal motor function, normal sensory function, no focal deficits noted. Psychologic: Affect normal, judgement normal, mood normal. Current Patient Data Vital Signs Vital Signs Date Time Temp Pulse Resp B/P Pulse Ox O2 Delivery O2 Flow Rate FiO2 11/25/16 14:55 98.2 71 18 96 Room Air 98.2 Lab Values Laboratory Tests Test 11/25/16 15:04 Influenza Type A Antigen Negative (NEGATIVE) Influenza Type B Antigen Negative (NEGATIVE) EKG EKG [] Radiology/Procedures Radiology/Procedures [] Impressions: 1. viral syndrome 2. Chronic back pain Course & Med Decision Making Course & Med Decision Making Pertinent Labs and Imaging studies reviewed. (See chart for details) [] Dragon Disclaimer Dragon Disclaimer This electronic medical record was generated, in whole or in part, using a voice recognition dictation system. Departure Departure Impression: Primary Impression: Viral syndrome Additional Impression: Chronic back pain Disposition: HOME, SELF-CARE Condition: STABLE Referrals: NO PCP (PCP) Patient Instructions: Back Pain, Adult, [id number], Viral Infections, Easy-To -Read Additional Instructions: Take medication as prescribed. Follow up with primary doctor in 1-2 days. return if problems or concerns Scripts Tramadol Hcl 50 Mg [id number] Mg PO Q6H PRN PAIN #20 TAB Prov:PHILLIP BRUNNER APRN 11/25/16 Problem Qualifiers PHILLIP BRUNNER APRN Nov 25, 2016 15:08
[2016-11-25 15:42] LABS: OBC FLU VALID
[2016-11-25] MEDS ORDERED: TRAM50TA PO (16:01)
[2016-11-26 07:28] LABS: NEGATIVE OBC STREP NEG; POSITIVE OBC STREP POS
== END 2016-11-25 16:23 | disposition home or self-care (01) ==
LOC: ER 13:59
DX: B34.9 Viral infection, unspecified (principal); G89.29 Other chronic pain; M54.5 Low back pain; J45.909 Unspecified asthma, uncomplicated; E78.00 Pure hypercholesterolemia, unspecified; M19.90 Unspecified osteoarthritis, unspecified site; I25.2 Old myocardial infarction; Z90.710 Acquired absence of both cervix and uterus; Z98.51 Tubal ligation status; Z88.6 Allergy status to analgesic agent; Z98.890 Other specified postprocedural states
CPT/HCPCS: 87070; 87804; 87880; 99284

== ENCOUNTER 2016-11-30 19:43 | Emergency (ER) | payer OTHER ==
[~2016-11-30] VITALS: Ht 170.2 cm; Wt 90.7 kg
[2016-11-30 22:15] VITALS: BP 137/69
[2016-11-30] MEDS ORDERED: TRAM-29 PO (23:01)
--- NOTE | 2016-11-30 23:02 | PHYS DOC ---
Past Medical History Past Medical History: Arthritis, Asthma, Depression, High Cholesterol, [place], Other Additional Past Medical Histor: CHRONIC BACK PAIN,R LEG FX Past Surgical History: Hysterectomy, Tubal ligation, Other Additional Past Surgical Histo: BACK, LEFT ELBOW Additional Information: Nonsmoker Alcohol Use: None Drug Use: None Adult General Chief Complaint Chief Complaint: LOWER BACK PAIN OR INJURY [facility] HPI Patient is a 51 year old female with history of chronic low back pain who presents for medication refill. She usually takes Ultram for her chronic pain. She has been out of her medication for 4 days. Her next appointment with her PCP is over a month away. She denies any new injury. She denies any change in the pain that is different from her chronic pain. The pain radiates down her left leg. She denies any incontinence or saddle anesthesia. She does not have any focal weakness or numbness, nausea, vomiting, abdominal pain, or urinary symptoms. Her PCP is Dr. Hernandez. Review of Systems Review of Systems Constitutional: Denies fever or chills. [] GI: Denies abdominal pain, nausea, vomiting. [] : Denies dysuria, hematuria or urinary frequency. [] Musculoskeletal: Reports chronic low back pain. Integument: Denies rash or skin lesions. [] Neurologic: Denies headache, focal weakness or sensory changes. Denies incontinence or saddle anesthesia. All systems reviewed and negative unless otherwise stated in the HPI. Allergies Allergies Allergies Coded Allergies Type Severity Reaction Last Updated Verified acetaminophen Allergy Intermediate rash 09/26/16 Yes ibuprofen Allergy Intermediate rash 09/19/16 No naproxen Allergy Intermediate rash 09/19/16 No Physical Exam Physical Exam Constitutional: Well developed, well nourished, no acute distress, non-toxic appearance. [] HENT: Normocephalic, atraumatic, oropharynx moist. [] Eyes: PERRLA, EOMI, conjunctiva normal, no discharge. [] Neck: Normal range of motion, no tenderness, supple, no stridor. [] Cardiovascular: Heart rate regular rhythm, no murmur. [] Lungs & Thorax: Bilateral breath sounds clear to auscultation without wheezes, rales, or rhonchi. [] Abdomen: Bowel sounds normal, soft, no tenderness, no masses, no pulsatile masses. [] Skin: Warm, dry, no erythema, no rash. [] Back: Lumbar midline tenderness, no CVA tenderness. Left lumbar paraspinal muscle tenderness. Extremities: No tenderness, ROM intact, no edema. 2+ DP pulses bilaterally. Light touch sensation intact and equal in both legs. Equal strength in the legs bilaterally. Neurologic: Alert and oriented X 3, normal motor function, normal sensory function, no focal deficits noted. [] Psychologic: Affect normal, judgement normal, mood normal. [] Current Patient Data Vital Signs Vital Signs Date Time Temp Pulse Resp B/P Pulse Ox O2 Delivery O2 Flow Rate FiO2 11/30/16 22:15 98.3 95 20 98 Room Air 98.3 EKG EKG [] Radiology/Procedures Radiology/Procedures [] Course & Med Decision Making Course & Med Decision Making Pertinent Labs and Imaging studies reviewed. (See chart for details) [] Dragon Disclaimer Dragon Disclaimer This electronic medical record was generated, in whole or in part, using a voice recognition dictation system. Departure Departure Impression: Primary Impression: Chronic low back pain Disposition: HOME, SELF-CARE Condition: STABLE Referrals: NO PCP (PCP) Patient Instructions: Back Pain, Adult, [id number], Chronic Back Pain Additional Instructions: Please take the prescribed pain medication as directed. Do not drive or operate heavy machinery while taking pain medication. Please follow-up with your primary care doctor for refills of your pain medications. Return to the emergency department if you have any new or concerning symptoms. Scripts Tramadol Hcl (Ultram)50 Mg [id number] Mg PO Q6H PRN PAIN #20 TAB Prov:LUCRETIA PRIETO 11/30/16 Problem Qualifiers Primary Impression: Chronic low back pain Back pain laterality: midline Sciatica presence: with sciatica Sciatica laterality: sciatica of left side Qualified Code: M54.42 - Lumbago with sciatica, left side LUCRETIA PRIETO Nov 30, 2016 23:02
== END 2016-11-30 23:09 | disposition home or self-care (01) ==
LOC: ER 19:43
DX: M54.42 Lumbago with sciatica, left side (principal); G89.29 Other chronic pain; J45.909 Unspecified asthma, uncomplicated; E78.00 Pure hypercholesterolemia, unspecified; F32.9 Major depressive disorder, single episode, unspecified; I25.2 Old myocardial infarction; M19.90 Unspecified osteoarthritis, unspecified site; Z90.710 Acquired absence of both cervix and uterus; Z98.51 Tubal ligation status; Z88.8 Allergy status to other drugs, medicaments and biological substances
CPT/HCPCS: 99283

== ENCOUNTER 2016-12-05 18:59 | Emergency (ER) | payer OTHER ==
[~2016-12-05] VITALS: Ht 167.6 cm; Wt 90.7 kg
[2016-12-05 19:54] VITALS: BP 137/69
[2016-12-05] MEDS ORDERED: OXYCODONE/APAP 5/325 TABLET. PO ONE (20:15)
[2016-12-05] MEDS ORDERED: DIPHENHYDRAMINE HCL 25 MG CAPSULE PO ONE (20:15)
[2016-12-05] MEDS ORDERED: METH-37 PO (20:49)
[2016-12-05] MEDS ORDERED: TRAM-29 PO (20:49)
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
== END 2016-12-05 20:55 | disposition home or self-care (01) ==
LOC: ER 18:59
DX: M54.32 Sciatica, left side (principal); M54.31 Sciatica, right side; G89.29 Other chronic pain; E78.00 Pure hypercholesterolemia, unspecified; F32.9 Major depressive disorder, single episode, unspecified; I25.2 Old myocardial infarction; M19.90 Unspecified osteoarthritis, unspecified site; J45.909 Unspecified asthma, uncomplicated; Z90.710 Acquired absence of both cervix and uterus; Z88.8 Allergy status to other drugs, medicaments and biological substances; Z88.6 Allergy status to analgesic agent
CPT/HCPCS: 99283; Q0163

== ENCOUNTER 2016-12-11 16:39 | Emergency (ER) | payer OTHER ==
[2016-12-11 17:30] VITALS: BP 142/72
[2016-12-11] MEDS ORDERED: TRAMADOL 50 MG TABLET. PO ONE (17:45)
--- NOTE | 2016-12-11 18:35 | PHYS DOC ---
Past Medical History Past Medical History: Arthritis, Asthma, Depression, High Cholesterol, [place], Other Additional Past Medical Histor: CHRONIC BACK PAIN,R LEG FX Past Surgical History: Hysterectomy, Tubal ligation, Other Additional Past Surgical Histo: BACK, LEFT ELBOW Smoking: Cigarettes Alcohol Use: None Drug Use: None Adult General Chief Complaint Chief Complaint: ANIMAL BITE HPI HPI Patient is a 51 year old female who presents with abrasions caused by Scratch to the left forearm just prior to arrival. Patient states that she was petting a cat into an animal carrier and the animal was trying to get away. She denies any bites. The patient also complains of her chronic back pain, for which she is seen here regularly. She denies any change in her back pain. She has an appointment with a new PCP on 12/17/16. Her tetanus immunization is not up-to- date. Review of Systems Review of Systems Constitutional: Denies fever or chills. [] GI: Denies abdominal pain, nausea, vomiting, bloody stools or diarrhea. [] : Denies dysuria, hematuria or urinary frequency. [] Musculoskeletal: Reports left forearm pain. Reports chronic low back pain without change. Integument: Denies rash or skin lesions. Reports abrasions to the left forearm. Neurologic: Denies headache, focal weakness or sensory changes. Denies incontinence or saddle anesthesia. Current Medications Current Medications Current Medications Medications (Trade) Dose Ordered Sig/[facility] Start Time Stop Time Status Last Admin Dose Admin Tramadol HCl (Ultram) 50 mg 1X ONCE 12/11/16 17:45 12/11/16 17:46 DC 12/11/16 18:11 50 MG Allergies Allergies Allergies Coded Allergies Type Severity Reaction Last Updated Verified acetaminophen Allergy Intermediate rash 09/26/16 Yes ibuprofen Allergy Intermediate rash 09/19/16 No naproxen Allergy Intermediate rash 09/19/16 No Physical Exam Physical Exam Constitutional: Well developed, well nourished, no acute distress, non-toxic appearance. [] HENT: Normocephalic, atraumatic, oropharynx moist. [] Eyes: PERRLA, EOMI, conjunctiva normal, no discharge. [] Neck: Normal range of motion, no tenderness, supple, no stridor. [] Skin: Warm, dry, no erythema, no rash. Multiple superficial abrasions to the left dorsal forearm. Back: Lumbar midline tenderness, no CVA tenderness. [] Extremities: Left ventral forearm tenderness, ROM intact, no edema. 2+ radial and ulnar pulses. Less than 2 second capillary refill in the fingers distally. Light touch sensation intact in the fingers. Neurologic: Alert and oriented X 3, normal motor function, normal sensory function, no focal deficits noted. [] Psychologic: Affect normal, judgement normal, mood normal. [] Current Patient Data Vital Signs Vital Signs Date Time Temp Pulse Resp B/P Pulse Ox O2 Delivery O2 Flow Rate FiO2 12/11/16 17:30 98.1 97 20 99 Room Air 98.1 EKG EKG [] Radiology/Procedures Radiology/Procedures [] Course & Med Decision Making Course & Med Decision Making Pertinent Labs and Imaging studies reviewed. (See chart for details) [] Dragon Disclaimer Dragon Disclaimer This electronic medical record was generated, in whole or in part, using a voice recognition dictation system. Departure Departure Impression: Primary Impression: Cat scratch of forearm Additional Impression: Chronic low back pain Disposition: HOME, SELF-CARE Condition: STABLE Referrals: NO PCP (PCP) Patient Instructions: Abrasion, [id number], Chronic Back Pain Additional Instructions: Please keep your scratches clean using soap and water. Cover with antibiotic ointment and a bandage. Follow-up with your primary care doctor if you notice redness, swelling, or yellow/green drainage from the wounds. Follow-up with your doctor for refill of your chronic back pain medication. Return to the emergency department if you have any new or concerning symptoms. Problem Qualifiers Primary Impression: Cat scratch of forearm Encounter type: initial encounter Laterality: left Qualified Code: S50.812A - Abrasion of left forearm, initial encounter Additional Impression: Chronic low back pain Back pain laterality: midline Sciatica presence: unspecified whether sciatica present Qualified Code: M54.5 - Low back pain LUCRETIA PRIETO Dec 11, 2016 18:35
[2016-12-11] MEDS ORDERED: DIPHTH,PERTUSS(ACELL),TET TOX 0.5 ML DISP.SYRIN. VAX IM ONE (18:45)
[2016-12-12] MEDS ORDERED: AMOX1TAB61 PO (13:11)
[2016-12-12] MEDS ORDERED: TRAM-29 PO (13:11)
== END 2016-12-11 18:43 | disposition home or self-care (01) ==
LOC: ER 16:39
DX: S50.812A Abrasion of left forearm, initial encounter (principal); M19.90 Unspecified osteoarthritis, unspecified site; J45.909 Unspecified asthma, uncomplicated; F32.9 Major depressive disorder, single episode, unspecified; E78.00 Pure hypercholesterolemia, unspecified; I25.2 Old myocardial infarction; G89.29 Other chronic pain; M54.9 Dorsalgia, unspecified; Z90.710 Acquired absence of both cervix and uterus; Z98.51 Tubal ligation status; F17.210 Nicotine dependence, cigarettes, uncomplicated; Z88.8 Allergy status to other drugs, medicaments and biological substances; W55.03XA Scratched by cat, initial encounter; Y93.89 Activity, other specified; Y92.89 Other specified places as the place of occurrence of the external cause; Y99.8 Other external cause status
CPT/HCPCS: 90471; 90715; 99283-25

== ENCOUNTER 2016-12-12 10:56 | Emergency (ER) | payer OTHER ==
[~2016-12-12] VITALS: Ht 165.1 cm; Wt 79.4 kg
[2016-12-12 11:54] VITALS: BP 136/85
[2016-12-12] MEDS ORDERED: TRAMADOL 50 MG TABLET. PO ONE (12:45)
--- NOTE | 2016-12-12 12:48 | PHYS DOC ---
Past Medical History Past Medical History: Arthritis, Asthma, Depression, High Cholesterol, [place], Other Additional Past Medical Histor: CHRONIC BACK PAIN,R LEG FX Past Surgical History: Hysterectomy, Tubal ligation, Other Additional Past Surgical Histo: BACK, LEFT ELBOW Alcohol Use: None Drug Use: None Adult General Chief Complaint Chief Complaint: ANIMAL BITE HPI HPI Patient is a 51 year old presents emergency department for the second time in the last 2 days. Patient was seen here last night stating that her cat had scratched her left arm. She was provided has had a shot and was discharged. Patient returns today with swelling to the left hand and index finger. Patient states she has having increased pain and discomfort. She does state she has a history of chronic back pain and is out of her back pain medication. Denies any numbness or tingling to extremities. She denies any drainage coming from the wounds. Review of Systems Review of Systems Constitutional: Denies fever or chills [] Eyes: Denies change in visual acuity, redness, or eye pain [] HENT: Denies nasal congestion or sore throat [] Respiratory: Denies cough or shortness of breath [] Cardiovascular: No additional information not addressed in HPI [] GI: Denies abdominal pain, nausea, vomiting, bloody stools or diarrhea [] : Denies dysuria or hematuria [] Musculoskeletal: Denies back pain or joint pain [] Integument: Denies rash or skin lesions. Scratches to the left wrist and hand Neurologic: Denies headache, focal weakness or sensory changes [] Current Medications Current Medications Current Medications Medications (Trade) Dose Ordered Sig/Jayy Start Time Stop Time Status Last Admin Dose Admin Tramadol HCl (Ultram) 50 mg 1X ONCE 12/12/16 12:45 12/12/16 12:51 DC 12/12/16 13:00 50 MG Allergies Allergies Allergies Coded Allergies Type Severity Reaction Last Updated Verified acetaminophen Allergy Intermediate rash 09/26/16 Yes ibuprofen Allergy Intermediate rash 09/19/16 No naproxen Allergy Intermediate rash 09/19/16 No Physical Exam Physical Exam Constitutional: Well developed, well nourished, no acute distress, non-toxic appearance. [] HENT: Normocephalic, atraumatic, bilateral external ears normal, oropharynx moist, no oral exudates, nose normal. [] Eyes: PERRLA, EOMI, conjunctiva normal, no discharge. [] Neck: Normal range of motion, no tenderness, supple, no stridor. [] Cardiovascular:Heart rate regular rhythm, no murmur [] Lungs & Thorax: Bilateral breath sounds clear to auscultation [] Skin: Warm, dry, no erythema, no rash. Patient with abrasions noted on the left hand and wrist area. Left index finger appears to be swollen. There is red streaking noted. Back: No tenderness Extremities: No tenderness, no cyanosis, no clubbing, ROM intact, no edema. [] Neurologic: Alert and oriented X 3, normal motor function, normal sensory function, no focal deficits noted. [] Psychologic: Affect normal, judgement normal, mood normal. [] Current Patient Data Vital Signs Vital Signs Date Time Temp Pulse Resp B/P Pulse Ox O2 Delivery O2 Flow Rate FiO2 12/12/16 13:00 20 Room Air 12/12/16 11:54 98.1 110 99 98.1 EKG EKG [] Radiology/Procedures Radiology/Procedures [facility] [address] [place] [address] IMAGING REPORT Signed PATIENT: JACKY GLASER ACCOUNT: [id number] : 1965 LOCATION: ER AGE: 51 SEX: F EXAM STATUS: REG ER ORD. PHYSICIAN: RICHARD MULLINS NP REASON: left hand pain and swelling after cat attack yesterday PROCEDURE: HAND LEFT 3V Examination: 3 views of the left hand History: History of redness, swelling Comparison: None available Findings: The alignment of the metacarpophalangeal joints and interphalangeal grossly appears unremarkable. There is no acute fracture or dislocation identified. Mild probable soft tissue swelling identified in the region of the palm. Impression: 1. No acute osseous findings. 2. Probable mild soft tissue swelling identified in the palm. DICTATED and SIGNED BY: ZENOBIA DIALLO MD DATE: 12/12/16 1255 CC: RICHARD MULLINS FREE LANCE ARTIST; NO PCP ~ [] Course & Med Decision Making Course & Med Decision Making Pertinent Labs and Imaging studies reviewed. (See chart for details) She was provided with Ultram here in the emergency department. Patient will be provided with Augmentin at discharge with recommendations to follow-up with her primary care physician on Wednesday for reevaluation. Patient was provided with signs and symptoms to return back to emergency department. Patient agrees with discharge instructions treatment regimens and follow-up recommendations. Spoke with patient regards to keeping the hand and arm elevated. Ice packs on 20 minutes off 20 minutes several times a day. [] Dragon Disclaimer Dragon Disclaimer This electronic medical record was generated, in whole or in part, using a voice recognition dictation system. Departure Departure Impression: Primary Impression: Cat scratch of forearm Disposition: HOME, SELF-CARE Condition: STABLE Referrals: NO PCP (PCP) Patient Instructions: Cat Scratch Disease-Brief Additional Instructions: Medications as prescribed. Ice packs on 20 minutes off 20 minutes several times a day. Elevation as much as possible. Clean the areas with soap and water and apply antibiotic ointment to the areas twice a day. follow-up with your primary care physician on Wednesday. Return back to the emergency department for signs and symptoms of become worse. Scripts Tramadol Hcl (Ultram)50 Mg Tablet1 Tab PO Q6HRS #10 TAB Prov:RICHARD MULLINS FREE LANCE ARTIST 12/12/16 Amoxicillin/Potassium Clav (Augmentin 875-125 Tablet)1 Each Tablet1 Tab PO BID # 20 TAB Prov:RICHARD MULLINS FREE LANCE ARTIST 12/12/16 RICHARD MULLINS FREE LANCE ARTIST Dec 12, 2016 12:48
--- NOTE | 2016-12-12 13:03 | RAD ---
Examination: 3 views of the left hand History: History of redness, swelling Comparison: None available Findings: The alignment of the metacarpophalangeal joints and interphalangeal grossly appears unremarkable. There is no acute fracture or dislocation identified. Mild probable soft tissue swelling identified in the region of the palm. Impression: 1. No acute osseous findings. 2. Probable mild soft tissue swelling identified in the palm.
[2016-12-12] MEDS ORDERED: TRAM-29 PO (13:11)
[2016-12-12] MEDS ORDERED: AMOX1TAB61 PO (13:11)
== END 2016-12-12 13:17 | disposition home or self-care (01) ==
LOC: ER 10:56
DX: S40.812A Abrasion of left upper arm, initial encounter (principal); J45.909 Unspecified asthma, uncomplicated; E78.00 Pure hypercholesterolemia, unspecified; G89.29 Other chronic pain; M19.90 Unspecified osteoarthritis, unspecified site; I25.2 Old myocardial infarction; Z88.6 Allergy status to analgesic agent; W55.03XA Scratched by cat, initial encounter; Y93.89 Activity, other specified; Y99.8 Other external cause status; Y92.89 Other specified places as the place of occurrence of the external cause
CPT/HCPCS: 73130; 99284

== ENCOUNTER 2016-12-16 11:04 | Emergency (ER) | payer OTHER ==
[~2016-12-16] VITALS: Ht 167.6 cm; Wt 106.3 kg
[~2016-12-16 11:04] MED LIST changes: +AMOX1TAB61 PO
[2016-12-16 11:20] VITALS: BP 142/82
[2016-12-16] MEDS ORDERED: OXYCODONE IR 5 MG TABLET. PO ONE (11:45)
--- NOTE | 2016-12-16 12:01 | RAD ---
AP radiograph of the pelvis to include AP and lateral radiographs of the left hip 12/16/2016 Clinical history: Patient fell 5 days ago with left hip pain. Two AP digital radiographs of the pelvis to include both hips were obtained. AP and lateral digital radiographs of the left hip were obtained. No pelvic bone fracture is seen. Both hips are intact. Specifically no fracture or dislocation of the left hip is seen. Impression: No fracture or dislocation is seen.
[2016-12-16] MEDS ORDERED: CYCL10TA2 PO (12:47)
--- NOTE | 2016-12-16 12:47 | PHYS DOC ---
Past Medical History Past Medical History: Arthritis, Asthma, Depression, High Cholesterol, [place], Other Additional Past Medical Histor: CHRONIC BACK PAIN,R LEG FX Past Surgical History: Hysterectomy, Tubal ligation, Other Additional Past Surgical Histo: BACK, LEFT ELBOW Alcohol Use: None Drug Use: None Adult General Chief Complaint Chief Complaint: BACK PAIN OR INJURY HPI HPI Patient is a 51 year old female well-known to this department for her chronic back pain who presents with left-sided low back pain and left hip pain starting yesterday. She reports that she fell down some stairs 5 days ago. She typically walks with a cane and has been ambulatory with the assistance of her cane since the fall. She denies incontinence or saddle anesthesia. She does not have any nausea, vomiting, or urinary symptoms. She usually takes Ultram for her back pain. She states that the Ultram is not helping her pain now. She has an appointment with a new PCP tomorrow. Review of Systems Review of Systems Constitutional: Denies fever or chills. [] GI: Denies abdominal pain, nausea, vomiting [] : Denies dysuria, hematuria or urinary frequency. [] Musculoskeletal: Reports low back pain and left hip pain. Integument: Denies rash or skin lesions. Reports left thigh bruising. Neurologic: Denies headache, focal weakness or sensory changes. Denies incontinence or saddle anesthesia. All systems reviewed and negative unless otherwise stated in the HPI. Current Medications Current Medications Current Medications Medications (Trade) Dose Ordered Sig/Jayy Start Time Stop Time Status Last Admin Dose Admin Oxycodone HCl (Roxicodone) 5 mg 1X ONCE 12/16/16 11:45 12/16/16 11:46 DC 12/16/16 11:59 5 MG Allergies Allergies Allergies Coded Allergies Type Severity Reaction Last Updated Verified acetaminophen Allergy Intermediate rash 09/26/16 Yes ibuprofen Allergy Intermediate rash 09/19/16 No naproxen Allergy Intermediate rash 09/19/16 No Physical Exam Physical Exam Constitutional: Well developed, well nourished, no acute distress, non-toxic appearance. [] HENT: Normocephalic, atraumatic, oropharynx moist. [] Eyes: PERRLA, EOMI, conjunctiva normal, no discharge. [] Neck: Normal range of motion, no tenderness, supple, no stridor. [] Cardiovascular: Heart rate regular rhythm, no murmur. [] Lungs & Thorax: Bilateral breath sounds clear to auscultation without wheezes, rales, or rhonchi. [] Abdomen: Bowel sounds normal, soft, no tenderness, no masses, no pulsatile masses. [] Skin: Warm, dry, no erythema, no rash. There is a 5cm area of ecchymosis on the left lateral thigh. Back: Lumbar midline tenderness, no CVA tenderness. Left lumbar paraspinal tenderness. Extremities: Left hip tenderness, ROM intact, no edema. 2+ pedal pulses. Light touch sensation intact and equal bilaterally both proximally and distally. There is no tenderness of the thigh, hip, calf, and call, or foot. Neurologic: Alert and oriented X 3, normal motor function, normal sensory function, no focal deficits noted. [] Psychologic: Affect normal, judgement normal, mood normal. [] Current Patient Data Vital Signs Vital Signs Date Time Temp Pulse Resp B/P Pulse Ox O2 Delivery O2 Flow Rate FiO2 12/16/16 11:59 18 98 Room Air 12/16/16 11:20 98.2 88 98.2 EKG EKG [] Radiology/Procedures Radiology/Procedures REASON: fall 5d ago, pain started yesterday PROCEDURE: HIP LEFT 2V WITH PELVIS AP radiograph of the pelvis to include AP and lateral radiographs of the left hip 12/16/2016 Clinical history: Patient fell 5 days ago with left hip pain. Two AP digital radiographs of the pelvis to include both hips were obtained. AP and lateral digital radiographs of the left hip were obtained. No pelvic bone fracture is seen. Both hips are intact. Specifically no fracture or dislocation of the left hip is seen. Impression: No fracture or dislocation is seen. Course & Med Decision Making Course & Med Decision Making Pertinent Labs and Imaging studies reviewed. (See chart for details) [] Dragon Disclaimer Dragon Disclaimer This electronic medical record was generated, in whole or in part, using a voice recognition dictation system. Departure Departure Impression: Primary Impression: Hip pain Additional Impression: Back pain Disposition: 01 HOME, SELF-CARE Condition: STABLE Referrals: NO PCP (PCP) Patient Instructions: Chronic Back Pain, Hip Pain Additional Instructions: Your xray did not show any broken bones or dislocations. Please take the prescribed muscle relaxer to help with your pain. Please continue to take your tramadol as directed for pain. Please follow up with your primary care doctor or a pain management doctor for treatment of your chronic pain. Return to the emergency department if you have any new or concerning symptoms. Scripts Cyclobenzaprine Hcl 10 Mg Tablet1 Tab PO TID #30 TAB Prov:LUCRETIA PRIETO 12/16/16 Problem Qualifiers Primary Impression: Hip pain Laterality: left Qualified Code: M25.552 - Pain in left hip Additional Impression: Back pain Back pain location: low back pain Chronicity: chronic Back pain laterality : left Sciatica presence: with sciatica Sciatica laterality: sciatica of left side Qualified Code: M54.42 - Lumbago with sciatica, left side LUCRETIA PRIETO Dec 16, 2016 12:47
== END 2016-12-16 12:57 | disposition home or self-care (01) ==
LOC: ER 11:04
DX: G89.29 Other chronic pain (principal); M54.5 Low back pain; M25.552 Pain in left hip; E78.00 Pure hypercholesterolemia, unspecified; J45.909 Unspecified asthma, uncomplicated; M19.90 Unspecified osteoarthritis, unspecified site; I25.2 Old myocardial infarction; Z90.710 Acquired absence of both cervix and uterus; Z98.51 Tubal ligation status
CPT/HCPCS: 73502; 99284

== ENCOUNTER 2016-12-17 18:55 | Emergency (ER) | payer OTHER ==
[~2016-12-17] VITALS: Ht 177.8 cm; Wt 106.1 kg
[2016-12-17 19:06] VITALS: BP 138/86
--- NOTE | 2016-12-17 19:18 | PHYS DOC ---
Past Medical History Past Medical History: Arthritis, Asthma, Depression, High Cholesterol, [place], Other Additional Past Medical Histor: CHRONIC BACK PAIN,R LEG FX Past Surgical History: Hysterectomy, Tubal ligation, Other Additional Past Surgical Histo: BACK, LEFT ELBOW Alcohol Use: None Drug Use: None Adult General Chief Complaint Chief Complaint: BACK PAIN OR INJURY [facility] HPI Patient is a 51 year old female who presents with chronic low back pain that is uncontrolled due to not being prescribed pain medications. She has frequent emergency department visits for this. She states her pain is unchanged. She denies recent trauma. She denies numbness, tingling, weakness, saddle anesthesia , bowel or bladder dysfunction. She denies abdominal pain, fever or chills. She also notes chronic depression and she ran out of her Cymbalta medication. She has a psychiatry appointment scheduled 4 days from now. She denies suicidal ideation, homicidal ideation, hallucinations. Review of Systems Review of Systems Constitutional: Denies fever or chills [] Eyes: Denies change in visual acuity, redness, or eye pain [] HENT: Denies nasal congestion or sore throat [] Respiratory: Denies cough or shortness of breath [] Cardiovascular: No additional information not addressed in HPI [] GI: Denies abdominal pain, nausea, vomiting, bloody stools or diarrhea [] : Denies dysuria or hematuria [] Musculoskeletal: Denies joint pain [] Integument: Denies rash or skin lesions [] Neurologic: Denies headache, focal weakness or sensory changes [] Endocrine: Denies polyuria or polydipsia [] Allergies Allergies Allergies Coded Allergies Type Severity Reaction Last Updated Verified acetaminophen Allergy Intermediate rash 09/26/16 Yes ibuprofen Allergy Intermediate rash 09/19/16 No naproxen Allergy Intermediate rash 09/19/16 No Physical Exam Physical Exam Constitutional: Well developed, well nourished, no acute distress, non-toxic appearance. [] HENT: Normocephalic, atraumatic, bilateral external ears normal, oropharynx moist, nose normal. [] Eyes: PERRLA, EOMI. [] Neck: Normal range of motion, supple. [] Cardiovascular:Heart rate regular rhythm [] Lungs & Thorax: Bilateral breath sounds clear to auscultation [] Abdomen: Bowel sounds normal, soft, no tenderness. [] Skin: Warm, dry, no erythema, no rash. [] Back: No midline spinal tenderness, no CVA tenderness. Has some tenderness along lumbar surgical scar and left paraspinal muscles with no visual or palpable abnormality, no warmth/induration/crepitance/fluctuance [] Extremities: ROM intact, ambulatory with a cane. [] Neurologic: Alert and oriented X 3, normal motor function, normal sensory function, no focal deficits noted. [] Psychologic: Affect normal, judgement normal, mood normal. [] Current Patient Data Vital Signs Vital Signs Date Time Temp Pulse Resp B/P Pulse Ox O2 Delivery O2 Flow Rate FiO2 12/17/16 19:06 98.1 98 22 138/86 98 Room Air 98.1 Course & Med Decision Making Course & Med Decision Making Encouraged her to keep her psychiatry follow-up appointment for chronic depression. Encouraged her to see her primary care physician for pain management of her chronic pain syndrome. Return precautions given. She understands plan. Dragon Disclaimer Dragon Disclaimer This electronic medical record was generated, in whole or in part, using a voice recognition dictation system. Departure Departure Impression: Primary Impression: Chronic back pain Additional Impression: Chronic depression Disposition: HOME, SELF-CARE Condition: STABLE Referrals: NO PCP (PCP) Patient Instructions: Back Pain, Adult, [id number] Additional Instructions: You must follow up with your primary care doctor for treatment of chronic back pain. Return for any concerns. Problem Qualifiers Primary Impression: Chronic back pain Back pain location: low back pain Back pain laterality: left Sciatica presence: without sciatica Qualified Code: M54.5 - Low back pain Myke CARRERO MD Dec 17, 2016 19:18
== END 2016-12-17 19:30 | disposition home or self-care (01) ==
LOC: ER 18:55
DX: G89.29 Other chronic pain (principal); M54.5 Low back pain; F32.9 Major depressive disorder, single episode, unspecified; M19.90 Unspecified osteoarthritis, unspecified site; J45.909 Unspecified asthma, uncomplicated; E78.00 Pure hypercholesterolemia, unspecified; I25.2 Old myocardial infarction; Z98.890 Other specified postprocedural states; Z88.8 Allergy status to other drugs, medicaments and biological substances; Z88.6 Allergy status to analgesic agent
CPT/HCPCS: 99284

== ENCOUNTER 2016-12-22 18:43 | Emergency (ER) | payer OTHER ==
[~2016-12-22] VITALS: Ht 165.1 cm; Wt 106.1 kg
[2016-12-22 18:46] VITALS: BP 143/93
[2016-12-22] MEDS ORDERED: ORPH100T PO (20:18)
--- NOTE | 2016-12-22 20:18 | PHYS DOC ---
Past Medical History Past Medical History: Arthritis, Asthma, Depression, High Cholesterol, [place], Other Additional Past Medical Histor: CHRONIC BACK PAIN,R LEG FX Past Surgical History: Hysterectomy, Tubal ligation, Other Additional Past Surgical Histo: BACK, LEFT ELBOW Alcohol Use: None Drug Use: None Adult General Chief Complaint Chief Complaint: BACK PAIN - NO INJURY HPI HPI 51-year-old female well-known to our emergency Department secondary to multiple visits for back pain presents with more back pain today. She states pain is been moving down into her left hip. She denies any bowel or bladder dysfunction. She denies any saddle paresthesias. Voiding normally. [] Review of Systems Review of Systems Constitutional: Denies fever or chills [] Eyes: Denies change in visual acuity, redness, or eye pain [] HENT: Denies nasal congestion or sore throat [] Respiratory: Denies cough or shortness of breath [] Cardiovascular: No additional information not addressed in HPI [] GI: Denies abdominal pain, nausea, vomiting, bloody stools or diarrhea [] : Denies dysuria or hematuria [] Musculoskeletal: Per history of present illness [] Integument: Denies rash or skin lesions [] Neurologic: Denies headache, focal weakness or sensory changes [] Endocrine: Denies polyuria or polydipsia [] Allergies Allergies Allergies Coded Allergies Type Severity Reaction Last Updated Verified acetaminophen Allergy Intermediate rash 09/26/16 Yes ibuprofen Allergy Intermediate rash 09/19/16 No naproxen Allergy Intermediate rash 09/19/16 No Physical Exam Physical Exam Constitutional: Well developed, well nourished, no acute distress, non-toxic appearance. [] HENT: Normocephalic, atraumatic, bilateral external ears normal, oropharynx moist, no oral exudates, nose normal. [] Eyes: PERRLA, EOMI, conjunctiva normal, no discharge. [] Neck: Normal range of motion, no tenderness, supple, no stridor. [] Cardiovascular:Heart rate regular rhythm, no murmur [] Lungs & Thorax: Bilateral breath sounds clear to auscultation [] Abdomen: Bowel sounds normal, soft, no tenderness, no masses, no pulsatile masses. [] Skin: Warm, dry, no erythema, no rash. [] Back: No tenderness, no CVA tenderness. [] Extremities: No tenderness, no cyanosis, no clubbing, ROM intact, no edema. [] Neurologic: Alert and oriented X 3, normal motor function, normal sensory function, no focal deficits noted. [] Psychologic: Affect normal, judgement normal, mood normal. [] Current Patient Data Vital Signs Vital Signs Date Time Temp Pulse Resp B/P Pulse Ox O2 Delivery O2 Flow Rate FiO2 12/22/16 18:46 98.6 95 18 98 Room Air 98.6 EKG EKG [] Radiology/Procedures Radiology/Procedures [] Course & Med Decision Making Course & Med Decision Making Pertinent Labs and Imaging studies reviewed. (See chart for details) [] Dragon Disclaimer Dragon Disclaimer This electronic medical record was generated, in whole or in part, using a voice recognition dictation system. Departure Departure Impression: Primary Impression: Chronic back pain Disposition: HOME, SELF-CARE Condition: STABLE Referrals: MARITZA ALCARAZ MD (PCP) Patient Instructions: Chronic Back Pain Additional Instructions: Thank you for allowing us to participate in your care today. Followup with your primary care physician in 3 days if your symptoms do not improve. Return to the emergency department you have any new or concerning findings. This should be evaluated by the primary care physician and any necessary consulting services for continued management within a few days after discharge. Return to emergency room if you have any new or concerning symptoms including but not limited to fever, chills, nausea, vomiting, intractable pain, any new rashes, chest pain, shortness of air, uncontrolled bleeding, difficulty breathing, and/or vision loss. You may have been prescribed medication that can change in your level of thinking and ability to operate machinery. These medications include hydrocodone and Ativan. Also, Benadryl has been known to do this as well. Be sure to check with your pharmacist and ask if the medications you've prescribed can affect your level of consciousness. I recommend not operating heavy machinery or driving while on medication such as these. Scripts Orphenadrine Citrate 100 Mg Tablet.er1 Tab PO BID BACK PAIN #30 TAB Ref 1 Prov:ELISEO GONZALEZ DO 12/22/16 Problem Qualifiers Primary Impression: Chronic back pain Back pain location: low back pain Back pain laterality: midline Sciatica presence: without sciatica Qualified Code: M54.5 - Low back pain ELISEO GONZALEZ DO Dec 22, 2016 20:18
== END 2016-12-22 20:25 | disposition home or self-care (01) ==
LOC: ER 18:43
DX: G89.29 Other chronic pain (principal); M54.5 Low back pain; M19.90 Unspecified osteoarthritis, unspecified site; E78.00 Pure hypercholesterolemia, unspecified; I25.2 Old myocardial infarction; J45.909 Unspecified asthma, uncomplicated; Z90.710 Acquired absence of both cervix and uterus; Z98.51 Tubal ligation status; Z88.6 Allergy status to analgesic agent
CPT/HCPCS: 99283

== ENCOUNTER 2016-12-24 19:14 | Emergency (ER) | payer OTHER ==
[~2016-12-24] VITALS: Ht 165.1 cm; Wt 106.1 kg
[~2016-12-24 19:14] MED LIST changes: +ORPH100T PO
[2016-12-24 19:16] VITALS: BP 148/87
[2016-12-24] MEDS ORDERED: CYCL10TA2 PO (19:37)
--- NOTE | 2016-12-24 19:38 | PHYS DOC ---
Past Medical History Past Medical History: Arthritis, Asthma, Depression, High Cholesterol, [place], Other Additional Past Medical Histor: CHRONIC BACK PAIN,R LEG FX Past Surgical History: Hysterectomy, Tubal ligation, Other Additional Past Surgical Histo: BACK, LEFT ELBOW Alcohol Use: None Drug Use: None Adult General Chief Complaint Chief Complaint: BACK PAIN - NO INJURY HPI HPI Patient is a 51 year old female who presents emergency Department today with complaint of left mid and lower back pain that is chronic in nature. Patient reports that she has been experiencing an exacerbation of it again today. Patient was seen here 2 days ago with the same complaint. This is the 11th visit to the emergency department this year with same complaint. Patient states that she is pending an appointment with her primary care doctor next week. She denies saddle anesthesia or incontinence of urine and bowel. She denies flank pain, fevers and chills. Review of Systems Review of Systems Constitutional: Denies fever or chills [] Eyes: Denies change in visual acuity, redness, or eye pain [] HENT: Denies nasal congestion or sore throat [] Respiratory: Denies cough or shortness of breath [] Cardiovascular: No additional information not addressed in HPI [] GI: Denies abdominal pain, nausea, vomiting, bloody stools or diarrhea [] : Denies dysuria or hematuria [] Musculoskeletal: Denies back pain or joint pain [] Integument: Denies rash or skin lesions [] Neurologic: Denies headache, focal weakness or sensory changes [] Endocrine: Denies polyuria or polydipsia [] Allergies Allergies Allergies Coded Allergies Type Severity Reaction Last Updated Verified acetaminophen Allergy Intermediate rash 09/26/16 Yes ibuprofen Allergy Intermediate rash 09/19/16 No naproxen Allergy Intermediate rash 09/19/16 No Physical Exam Physical Exam Constitutional: Well developed, well nourished, no acute distress, non-toxic appearance. [] HENT: Normocephalic, atraumatic, bilateral external ears normal, oropharynx moist, no oral exudates, nose normal. [] Eyes: PERRLA, EOMI, conjunctiva normal, no discharge. [] Neck: Normal range of motion, no tenderness, supple, no stridor. [] Cardiovascular:Heart rate regular rhythm, no murmur [] Lungs & Thorax: Bilateral breath sounds clear to auscultation [] Abdomen: Bowel sounds normal, soft, no tenderness, no masses, no pulsatile masses. [] Skin: Warm, dry, no erythema, no rash. [] Back: Back is without any evidence of abnormalities or discoloration to the overlying skin. There is tenderness to palpation to the left paraspinous soft tissues at the level of T11/12 through L5. There is no palpable defect, deformity or spasm. There is no CVA tenderness. Extremities: No tenderness, no cyanosis, no clubbing, ROM intact, no edema. [] Neurologic: Alert and oriented X 3, normal motor function, normal sensory function, no focal deficits noted. Strength is equal and symmetric bilaterally in the lower extremities. She ambulates with a cane which is normal for her at this time. Psychologic: Affect normal, judgement normal, mood normal. [] Current Patient Data Vital Signs Vital Signs Date Time Temp Pulse Resp B/P Pulse Ox O2 Delivery O2 Flow Rate FiO2 12/24/16 19:16 98.0 95 20 97 Room Air 98.0 EKG EKG [] Radiology/Procedures Radiology/Procedures [] Course & Med Decision Making Course & Med Decision Making Patient presented a prescription was written 2 days ago for Norflex. She states that the pharmacy would not fill the prescription because it is not covered under her insurance plan. She is requesting a different muscle relaxer. I advised the patient that the pharmacy can always call us to change her prescription if there are any questions about the medication not being covered or adverse reactions. Dragon Disclaimer Dragon Disclaimer This electronic medical record was generated, in whole or in part, using a voice recognition dictation system. Departure Departure Impression: Primary Impression: Chronic back pain Disposition: HOME, SELF-CARE Condition: GOOD Referrals: MARITZA ALCARAZ MD (PCP) Patient Instructions: Chronic Back Pain Additional Instructions: 1. This is your 11th visit to the emergency department this year for the same complaint. Emergency rooms are not the ideal place for chronic medical conditions. 2. Take the medication as prescribed. 3. Review the discharge instructions provided for self-care and reasons to return the emergency department. 4. Follow-up with your doctor next week as planned. Scripts Cyclobenzaprine Hcl 10 Mg Tablet1 Tab PO TID #21 TAB Prov:KENDRA JUDD 12/24/16 KENDRA JUDD Dec 24, 2016 19:38
[2016-12-24] MEDS ORDERED: KETOROLAC TROMETHAMINE 60 MG/2 ML SYRINGE. IM ONE (19:45)
== END 2016-12-24 19:50 | disposition home or self-care (01) ==
LOC: ER 19:14
DX: G89.29 Other chronic pain (principal); M54.5 Low back pain; M19.90 Unspecified osteoarthritis, unspecified site; J45.909 Unspecified asthma, uncomplicated; F32.9 Major depressive disorder, single episode, unspecified; E78.00 Pure hypercholesterolemia, unspecified; I25.2 Old myocardial infarction; Z90.710 Acquired absence of both cervix and uterus; Z98.51 Tubal ligation status; Z88.8 Allergy status to other drugs, medicaments and biological substances; Z88.6 Allergy status to analgesic agent
CPT/HCPCS: 96372; 99283; J1885

== ENCOUNTER 2017-01-07 16:34 | Emergency (ER) | payer OTHER ==
[~2017-01-07] VITALS: Ht 165.1 cm; Wt 106.1 kg
[2017-01-07 16:43] VITALS: BP 124/87
[2017-01-07] MEDS ORDERED: CYCLOBENZAPRINE 10 MG TABLET. PO ONE (17:15)
[2017-01-07] MEDS ORDERED: MAG HYDROX/ALUMINUM HYD/SIMETH 30 ML ORAL.SUSP PO ONE (17:15)
[2017-01-07] MEDS ORDERED: CYCL10TA2 PO (17:17)
--- NOTE | 2017-01-07 17:17 | PHYS DOC ---
Past Medical History Past Medical History: Arthritis, Asthma, Depression, High Cholesterol, [place], Other Additional Past Medical Histor: CHRONIC BACK PAIN,R LEG FX Past Surgical History: Hysterectomy, Tubal ligation, Other Additional Past Surgical Histo: BACK, LEFT ELBOW Alcohol Use: None Drug Use: None Adult General Chief Complaint Chief Complaint: BACK PAIN - NO INJURY HPI HPI Patient is a 51 year old female presents emergency department stating that she is having chronic back pain. She states that she's been out of her medications for the last 3 days takes tramadol for pain and discomfort. Patient also states that she is having epigastric pain she states that she took her medicines morning which helped with the pain and discomfort although she has symmetric received fatty foods for lunch and now she has pain again. Patient denies any injury traumas to her back. She denies any urinary frequency urgency pain with urination. Patient is able to him that with a good steady gait with a cane. Review of Systems Review of Systems Constitutional: Denies fever or chills [] Eyes: Denies change in visual acuity, redness, or eye pain [] HENT: Denies nasal congestion or sore throat [] Respiratory: Denies cough or shortness of breath [] Cardiovascular: No additional information not addressed in HPI [] GI: epigastric abdominal pain, denies nausea, vomiting, bloody stools or diarrhea [] : Denies dysuria or hematuria [] Musculoskeletal: back pain denies joint pain [] Integument: Denies rash or skin lesions [] Neurologic: Denies headache, focal weakness or sensory changes [] Allergies Allergies Allergies Coded Allergies Type Severity Reaction Last Updated Verified acetaminophen Allergy Intermediate rash 09/26/16 Yes ibuprofen Allergy Intermediate rash 09/19/16 No naproxen Allergy Intermediate rash 09/19/16 No Physical Exam Physical Exam Constitutional: Well developed, well nourished, no acute distress, non-toxic appearance. [] HENT: Normocephalic, atraumatic, bilateral external ears normal, oropharynx moist, no oral exudates, nose normal. [] Eyes: PERRLA, EOMI, conjunctiva normal, no discharge. [] Neck: Normal range of motion, no tenderness, supple, no stridor. [] Cardiovascular:Heart rate regular rhythm, no murmur [] Lungs & Thorax: Bilateral breath sounds clear to auscultation [] Abdomen: Bowel sounds hypoactive, soft, epigastric tenderness, no masses, no pulsatile masses. [] Skin: Warm, dry, no erythema, no rash. [] Back: tenderness noted paraspinal areas in the thoracic. Extremities: No tenderness, no cyanosis, no clubbing, ROM intact, no edema. [] Neurologic: Alert and oriented X 3, normal motor function, normal sensory function, no focal deficits noted. [] Psychologic: Affect normal, judgement normal, mood normal. [] Current Patient Data Vital Signs Vital Signs Date Time Temp Pulse Resp B/P Pulse Ox O2 Delivery O2 Flow Rate FiO2 01/07/17 16:43 98.6 98 18 124/87 98 Room Air 98.6 EKG EKG [] Radiology/Procedures Radiology/Procedures [] Course & Med Decision Making Course & Med Decision Making Pertinent Labs and Imaging studies reviewed. (See chart for details) Patient will be provided with Maalox here in the emergency department and Flexeril with recommendations to keep her appointment with Dr. Viveros on January 14. Patient will be discharged home in stable condition signs and symptoms to return back to emergency department and been provided. Patient was also instructed that the emergency department is not a primary care physician's office to provide her with pain management. Explained to patient she needs to get up primary care physician such as Dr. Viveros who can provide her with the medications needed. [] Dragon Disclaimer Dragon Disclaimer This electronic medical record was generated, in whole or in part, using a voice recognition dictation system. Departure Departure Impression: Primary Impression: Chronic pain Additional Impressions: Epigastric abdominal pain Drug-seeking behavior Disposition: 01 HOME, SELF-CARE Condition: STABLE Referrals: MARITZA VIVEROS MD (PCP) Patient Instructions: Chronic Back Pain, Gastroesophageal Reflux Disease, Adult , [id number] Additional Instructions: Activity as tolerated. Medications as prescribed. Flexeril will cause drowsiness do not take any be alert and oriented. Continue to take your home medications for your epigastric pain. Avoid fried greasy fatty foods. Follow-up with Dr. Viveros in which she state you have an appointment on January 14. Return back to emergency department for signs and symptoms of become worse. Scripts Cyclobenzaprine Hcl 10 Mg [id number] Mg PO TID #20 TAB Prov:RICHARD MULLINS APRN 01/07/17 Problem Qualifiers RICHARD MULLINS APRN Jan 07, 2017 17:17
== END 2017-01-07 17:28 | disposition home or self-care (01) ==
LOC: ER 16:34
DX: G89.29 Other chronic pain (principal); R10.13 Epigastric pain; M54.6 Pain in thoracic spine; J45.909 Unspecified asthma, uncomplicated; F32.9 Major depressive disorder, single episode, unspecified; E78.00 Pure hypercholesterolemia, unspecified; I25.2 Old myocardial infarction; M19.90 Unspecified osteoarthritis, unspecified site; Z88.6 Allergy status to analgesic agent; Z88.8 Allergy status to other drugs, medicaments and biological substances; Z76.5 Malingerer [conscious simulation]; Z98.890 Other specified postprocedural states
CPT/HCPCS: 99284

== ENCOUNTER 2017-01-08 22:00 | Emergency (ER) | payer OTHER ==
[2017-01-08 22:14] VITALS: BP 133/88
[2017-01-09] MEDS ORDERED: PRED20TA PO (00:20)
--- NOTE | 2017-01-09 00:21 | PHYS DOC ---
Past Medical History Past Medical History: Arthritis, Asthma, Depression, High Cholesterol, [place], Other Additional Past Medical Histor: CHRONIC BACK PAIN,R LEG FX Past Surgical History: Hysterectomy, Tubal ligation, Other Additional Past Surgical Histo: BACK, LEFT ELBOW Alcohol Use: None Drug Use: None Adult General Chief Complaint Chief Complaint: PAIN CONTROL HPI HPI Patient is a 51 year old female presents emergency department for the second time in the last 2 days requesting tramadol for chronic left hip and back pain. Patient denies any trauma no injuries no falls. Patient is able to ambulate with a cane with no difficulty. Patient states that she took Flexeril once with no relief and therefore has not taken them anymore. Review of Systems Review of Systems Constitutional: Denies fever or chills [] Eyes: Denies change in visual acuity, redness, or eye pain [] HENT: Denies nasal congestion or sore throat [] Respiratory: Denies cough or shortness of breath [] Cardiovascular: No additional information not addressed in HPI [] GI: Denies abdominal pain, nausea, vomiting, bloody stools or diarrhea [] : Denies dysuria or hematuria [] Musculoskeletal: left back and hip pain Integument: Denies rash or skin lesions [] Neurologic: Denies headache, focal weakness or sensory changes [] Allergies Allergies Allergies Coded Allergies Type Severity Reaction Last Updated Verified acetaminophen Allergy Intermediate rash 09/26/16 Yes ibuprofen Allergy Intermediate rash 09/19/16 No naproxen Allergy Intermediate rash 09/19/16 No Physical Exam Physical Exam Constitutional: Well developed, well nourished, no acute distress, non-toxic appearance. [] HENT: Normocephalic, atraumatic, bilateral external ears normal, oropharynx moist, no oral exudates, nose normal. [] Eyes: PERRLA, EOMI, conjunctiva normal, no discharge. [] Neck: Normal range of motion, no tenderness, supple, no stridor. [] Cardiovascular:Heart rate regular rhythm, no murmur [] Lungs & Thorax: Bilateral breath sounds clear to auscultation [] Skin: Warm, dry, no erythema, no rash. [] Back: left lower back tenderness noted. Extremities: No tenderness, no cyanosis, no clubbing, ROM intact, no edema. [] Neurologic: Alert and oriented X 3, normal motor function, normal sensory function, no focal deficits noted. [] Psychologic: Affect normal, judgement normal, mood normal. [] Current Patient Data Vital Signs Vital Signs Date Time Temp Pulse Resp B/P Pulse Ox O2 Delivery O2 Flow Rate FiO2 01/08/17 22:14 98.6 97 16 98 Room Air 98.6 EKG EKG [] Radiology/Procedures Radiology/Procedures [] Course & Med Decision Making Course & Med Decision Making Pertinent Labs and Imaging studies reviewed. (See chart for details) Patient denies any trauma or injuries since being seen yesterday. She was provided with Flexeril yesterday in which she states she is taken one with no relief. Patient states that she is allergic to Tylenol ibuprofen and naproxen. She is requesting tramadol here in the emergency department. Spoke with patient in regards to following up with her primary care for pain management. Patient still continues to request tramadol. Instructed patient that this is a chronic pain issues she needs to be followed by a pain management or a primary care physician. She does state she has a primary care physician to follow up with. Recommended her calling the primary care on Wednesday for further medication. [] Dragon Disclaimer Dragon Disclaimer This electronic medical record was generated, in whole or in part, using a voice recognition dictation system. Departure Departure Impression: Primary Impression: Chronic low back pain Additional Impression: Drug-seeking behavior Disposition: HOME, SELF-CARE Condition: STABLE Referrals: MARITZA ALCARAZ MD (PCP) Patient Instructions: Chronic Back Pain, Chronic Pain Management-Brief Additional Instructions: Activity as tolerated. Usual home medications that you have for your chronic pain issues. Flexeril has been prescribed for you for pain and discomfort. You have also been provided steroids to help with her pain management. Follow-up with your primary care physician on Wednesday for further treatment of your chronic back pain. Return back to emergency department sign symptoms of become worse. Scripts Prednisone 20 Mg [id number] Mg PO DAILY #14 TAB Prov:RICHARD MULLINS APRN 01/09/17 Problem Qualifiers RICHARD MULLINS APRN Jan 09, 2017 00:21
[2017-01-09] MEDS ORDERED: ACETAMINOPHEN 325 MG TABLET. PO ONE (01:00)
[2017-01-10] MEDS ORDERED: TRAM50TA PO (22:06)
== END 2017-01-09 00:40 | disposition home or self-care (01) ==
LOC: ER 22:00
DX: G89.29 Other chronic pain (principal); M54.5 Low back pain; M25.552 Pain in left hip; M19.90 Unspecified osteoarthritis, unspecified site; J45.909 Unspecified asthma, uncomplicated; F32.9 Major depressive disorder, single episode, unspecified; I25.2 Old myocardial infarction; E78.00 Pure hypercholesterolemia, unspecified; Z76.5 Malingerer [conscious simulation]; Z88.6 Allergy status to analgesic agent; Z88.8 Allergy status to other drugs, medicaments and biological substances; Z98.890 Other specified postprocedural states
CPT/HCPCS: 99283

== ENCOUNTER 2017-01-10 21:05 | Emergency (ER) | payer OTHER ==
[~2017-01-10] VITALS: Ht 165.1 cm; Wt 76.7 kg
[2017-01-10 21:20] VITALS: BP 156/72
[2017-01-10] MEDS ORDERED: TRAM50TA PO (22:06)
--- NOTE | 2017-01-10 22:07 | PHYS DOC ---
Past Medical History Past Medical History: Asthma, Bronchitis, Depression, High Cholesterol Additional Past Medical Histor: HEART DISEASE Past Surgical History: Other Additional Past Surgical Histo: BACK SX, LEFT ELBOW Alcohol Use: None Drug Use: None Adult General Chief Complaint Chief Complaint: BACK PAIN OR INJURY [facility] HPI Patient is a 51 year old female presents emergency Department with complaint of low back pain secondary to 1 or 2 falls yesterday. Patient's story varies depending on who is asking a question. Patient has a history of chronic low back pain. This is her third visit in 3 days to this emergency department. She has a well-established history here for chronic low back pain that is often been documented for drug-seeking behavior. [facility] daughter is here with an upper respiratory infection asking for medications to help with her back pain. Patient of the pain. She denies saddle anesthesia or incontinence urine and bowel. Patient's daughter serves as reliable director perioperative for her. Review of Systems Review of Systems Constitutional: Denies fever or chills [] Eyes: Denies change in visual acuity, redness, or eye pain [] HENT: Denies nasal congestion or sore throat [] Respiratory: Denies cough or shortness of breath [] Cardiovascular: No additional information not addressed in HPI [] GI: Denies abdominal pain, nausea, vomiting, bloody stools or diarrhea [] : Denies dysuria or hematuria [] Musculoskeletal: Denies back pain or joint pain [] Integument: Denies rash or skin lesions [] Neurologic: Denies headache, focal weakness or sensory changes [] Endocrine: Denies polyuria or polydipsia [] Current Medications Current Medications Current Medications Medications (Trade) Dose Ordered Sig/[facility] Start Time Stop Time Status Last Admin Dose Admin Ketorolac Tromethamine (Toradol Im) 60 mg 1X ONCE 01/10/17 22:00 01/10/17 22:01 UNV Allergies Allergies Allergies Coded Allergies Type Severity Reaction Last Updated Verified acetaminophen Allergy Intermediate Rash 01/10/17 Yes ibuprofen Allergy Intermediate rash 09/19/16 No naproxen Allergy Intermediate rash 09/19/16 No Physical Exam Physical Exam Constitutional: Well developed, well nourished, no acute distress, non-toxic appearance. Patient sitting comfortably in exam chair. The only time she shows any distress is when I actually palpate her back. HENT: Normocephalic, atraumatic, bilateral external ears normal, oropharynx moist, no oral exudates, nose normal. [] Eyes: PERRLA, EOMI, conjunctiva normal, no discharge. [] Neck: Normal range of motion, no tenderness, supple, no stridor. [] Cardiovascular:Heart rate regular rhythm, no murmur [] Lungs & Thorax: Bilateral breath sounds clear to auscultation [] Abdomen: Bowel sounds normal, soft, no tenderness, no masses, no pulsatile masses. [] Skin: Warm, dry, no erythema, no rash. [] Back: Patient's back is normal in appearance with the exception of a well- healed surgical scar in the lower lumbar region. There are no abrasions or bruising. Or other signs of injury. There are no overlying skin conditions suggestive of shingles. There is no CVA tenderness. There is tenderness to palpation to the left lower paraspinous region with very light palpation that barely indents the skin. Extremities: No tenderness, no cyanosis, no clubbing, ROM intact, no edema. [] Neurologic: Alert and oriented X 3, normal motor function, normal sensory function, no focal deficits noted. [] Psychologic: Affect normal, judgement normal, mood normal. [] Current Patient Data Vital Signs Vital Signs Date Time Temp Pulse Resp B/P Pulse Ox O2 Delivery O2 Flow Rate FiO2 01/10/17 21:20 98.6 105 20 95 Room Air 98.6 EKG EKG [] Radiology/Procedures Radiology/Procedures [] Course & Med Decision Making Course & Med Decision Making Patient has a well-established history of chronic low back pain when she reports exacerbations of injuries without objective findings. She is asking for prescription for tramadol to help with low back pain. I will prescribe her 3 days with tramadol. She is been advised that she needs to follow-up with a primary care doctor. She states that she is pending an appointment with one. Zeus Disclaimer Zeus Disclaimer This electronic medical record was generated, in whole or in part, using a voice recognition dictation system. Departure Departure Impression: Primary Impression: Chronic low back pain Disposition: HOME, SELF-CARE Condition: GOOD Referrals: MARITZA ALCARAZ MD (PCP) Patient Instructions: Back Pain, Adult, [id number] Additional Instructions: 1. Take the medication as prescribed. 2. Review the discharge instructions provided for self-care and reasons to return the emergency department. 3. Be sure to follow up with primary care doctor's office within the next 5-7 days. Scripts Tramadol Hcl 50 Mg Tablet1 Tab PO PRN Q6HRS #15 TAB Prov:KENDRA JUDD 01/10/17 KENDRA JUDD Jan 10, 2017 22:07
[2017-01-10] MEDS ORDERED: KETOROLAC TROMETHAMINE 60 MG/2 ML SYRINGE. IM ONE (22:15)
== END 2017-01-10 22:34 | disposition home or self-care (01) ==
LOC: ER 21:05
DX: G89.29 Other chronic pain (principal); M54.5 Low back pain; J45.909 Unspecified asthma, uncomplicated; E78.00 Pure hypercholesterolemia, unspecified; Z88.6 Allergy status to analgesic agent; W19.XXXA Unspecified fall, initial encounter; Y93.89 Activity, other specified; Y92.89 Other specified places as the place of occurrence of the external cause; Y99.8 Other external cause status
CPT/HCPCS: 96372; 99283; J1885

== ENCOUNTER 2017-01-15 18:18 | Emergency (ER) | payer OTHER ==
[2017-01-15 18:27] VITALS: BP 163/96
[2017-01-15] MEDS ORDERED: TRAM-29 PO (18:57)
[2017-01-15] MEDS ORDERED: METH-37 PO (18:57)
--- NOTE | 2017-01-15 18:57 | PHYS DOC ---
Past Medical History Past Medical History: Asthma, Bronchitis, Depression, High Cholesterol Additional Past Medical Histor: HEART DISEASE Past Surgical History: Other Additional Past Surgical Histo: BACK SX, LEFT ELBOW Alcohol Use: None Drug Use: None Adult General Chief Complaint Chief Complaint: PAIN CONTROL HPI HPI Patient is a 51 year old female with history of high cholesterol asthma, and bronchitis who presents today with exacerbation of chronic low back pain. Patient denies any injuries. Patient denies any loss of bowel bladder function. She states the pain is radiating to bilateral lower extremities which is chronic. She states the pain is worse when she is ambulating. Review of Systems Review of Systems Constitutional: Denies fever or chills [] Eyes: Denies change in visual acuity, redness, or eye pain [] HENT: Denies nasal congestion or sore throat [] Musculoskeletal: Chronic bilateral low back pain Integument: Denies rash or skin lesions [] Neurologic: Denies headache, focal weakness or sensory changes [] Endocrine: Denies polyuria or polydipsia [] Current Medications Current Medications Current Medications Medications (Trade) Dose Ordered Sig/Jayy Start Time Stop Time Status Last Admin Dose Admin Tramadol HCl (Ultram) 100 mg 1X ONCE 01/15/17 19:00 01/15/17 19:01 Allergies Allergies Allergies Coded Allergies Type Severity Reaction Last Updated Verified acetaminophen Allergy Intermediate Rash 01/10/17 Yes ibuprofen Allergy Intermediate rash 09/19/16 No naproxen Allergy Intermediate rash 09/19/16 No Physical Exam Physical Exam Constitutional: Well developed, well nourished, no acute distress, non-toxic appearance. [] HENT: Normocephalic, atraumatic, bilateral external ears normal, oropharynx moist, no oral exudates, nose normal. [] Skin: Warm, dry, no erythema, no rash. [] Back: Diffuse paraspinal muscle tenderness to bilateral low lumbar region, no midline tenderness, no CVA tenderness. [] Extremities: No tenderness, no cyanosis, no clubbing, ROM intact, no edema. [] Neurologic: Alert and oriented X 3, normal motor function, normal sensory function, no focal deficits noted. [] Psychologic: Affect normal, judgement normal, mood normal. [] Current Patient Data Vital Signs Vital Signs Date Time Temp Pulse Resp B/P Pulse Ox O2 Delivery O2 Flow Rate FiO2 4/7/17 18:27 98.8 100 16 99 Room Air 98.8 EKG EKG [] Radiology/Procedures Radiology/Procedures [] Course & Med Decision Making Course & Med Decision Making Pertinent Labs and Imaging studies reviewed. (See chart for details) Patient is in the ED with chronic back pain. No signs of cauda equina syndrome. Provided return precautions. Discharged with tramadol. Follow-up with PCP next week. Dragon Disclaimer Dragon Disclaimer This electronic medical record was generated, in whole or in part, using a voice recognition dictation system. Departure Departure Impression: Primary Impression: Back pain Disposition: HOME, SELF-CARE Condition: STABLE Referrals: MARITZA ALCARAZ MD (PCP) Follow-up with your own doctor next week Patient Instructions: Back Pain, Adult Additional Instructions: You were seen for chronic back pain. Please follow-up with your own doctor as soon as you can. Scripts Methocarbamol (Robaxin)500 Mg Tablet1 Tab PO TID #30 TAB Prov:MEMO NELSON APRN 01/15/17 Tramadol Hcl (Ultram)50 Mg Tablet1 Tab PO Q6HRS #30 TAB Prov:MEMO NELSON APRN 01/15/17 Problem Qualifiers Primary Impression: Back pain Back pain location: low back pain Chronicity: chronic Back pain laterality : bilateral Sciatica presence: with sciatica Sciatica laterality: bilateral sciatica Qualified Code: M54.42 - Lumbago with sciatica, left side MEMO NELSON APRN Jan 15, 2017 18:57
[2017-01-15] MEDS ORDERED: TRAMADOL 50 MG TABLET. PO ONE (19:00)
== END 2017-01-15 19:00 | disposition home or self-care (01) ==
LOC: ER 18:18
DX: M54.42 Lumbago with sciatica, left side (principal); G89.29 Other chronic pain; E78.00 Pure hypercholesterolemia, unspecified; F32.9 Major depressive disorder, single episode, unspecified; J45.909 Unspecified asthma, uncomplicated
CPT/HCPCS: 99283

== ENCOUNTER 2017-01-26 15:52 | Emergency (ER) | payer OTHER ==
[~2017-01-26] VITALS: Ht 167.6 cm; Wt 76.7 kg
[2017-01-26 16:30] VITALS: BP 110/67
[2017-01-26 16:31] LABS: BASO # 0.1 x10^3/uL (0.0-0.2); BASO % 1 % (0-3); EOS % 3 % (0-3); HEMOGLOBIN 12.3 g/dL (12.0-15.5); LYMPH # 2.6 x10^3/uL (1.0-4.8); LYMPH % 28 % (24-48); MEAN CORPUSCULAR HEMOGLOBIN 29 pg (25-35); MEAN CORPUSCULAR HGB CONC 32 g/dL (31-37); MEAN CORPUSCULAR VOLUME 88 fL (79-100); MONO % 7 % (0-9); NEUT % 62 % (31-73); PLATELET COUNT 416 x10^3/uL (140-400); RED BLOOD COUNT 4.31 x10^6/uL (3.50-5.40); RED CELL DISTRIBUTION WIDTH 15.9 % (11.5-14.5); WHITE BLOOD COUNT 9.4 x10^3/uL (4.0-11.0)
[2017-01-26 16:34] LABS: BILIRUBIN,URINE NEGATIVE (NEG); GLUCOSE,URINE NEGATIVE (NEG); NITRITE,URINE NEGATIVE (NEG); PROTEIN,URINE NEGATIVE (NEG-TRACE); UROBILINOGEN,URINE 0.2 mg/dL (0.2 mg/dL)
[2017-01-26 16:38] LABS: CREATININE 0.9 mg/dL (0.6-1.0); POTASSIUM 4.1 mmol/L (3.5-5.1)
[2017-01-26 16:44] LABS: ALBUMIN 3.6 g/dL (3.4-5.0); TOTAL BILIRUBIN 0.2 mg/dL (0.2-1.0); TOTAL PROTEIN 7.3 g/dL (6.4-8.2)
[2017-01-26 16:45] LABS: BACTERIA,URINE FEW /HPF (0-FEW); RBC,URINE 0 /HPF (0-2); SQUAMOUS EPITHELIAL CELL,UR FEW /LPF; WBC,URINE OCC /HPF (0-4)
--- NOTE | 2017-01-26 17:06 | PHYS DOC ---
Past Medical History Past Medical History: Asthma, Bronchitis, Depression, High Cholesterol Additional Past Medical Histor: HEART DISEASE Past Surgical History: Other Additional Past Surgical Histo: BACK SX, LEFT ELBOW Alcohol Use: None Drug Use: None Adult General Chief Complaint Chief Complaint: ABDOMINAL PAIN HPI HPI 51-year-old female who presents our emergency department very frequently who comes to the emergency department today with epigastric abdominal pain that is nonradiating moderate intermittent and is been present since this morning. She also complains of back pain. She reports one episode of emesis. She denies blood in her stools chest pain shortness of breath. Review of systems is negative for chest pain shortness of breath fevers chills. She denies bloody stools. All other review of systems is negative unless otherwise noted in history of present illness. Review of Systems Review of Systems SEE ABOVE. Allergies Allergies Allergies Coded Allergies Type Severity Reaction Last Updated Verified acetaminophen Allergy Intermediate Rash 01/10/17 Yes ibuprofen Allergy Intermediate rash 09/19/16 No naproxen Allergy Intermediate rash 09/19/16 No Physical Exam Physical Exam Constitutional: Well developed, well nourished, no acute distress, non-toxic appearance. HENT: Normocephalic, atraumatic, bilateral external ears normal, oropharynx moist, no oral exudates, nose normal. [] Eyes: PERRLA, EOMI, conjunctiva normal, no discharge. Neck: Normal range of motion, no tenderness, supple, no stridor. [] Cardiovascular:Heart rate regular rhythm, no murmur Lungs & Thorax: Bilateral breath sounds clear to auscultation [] Abdomen: Soft nontender abdomen without rebound tenderness or guarding present. Negative McBurneys point. Negative Miranda sign. No ecchymosis present. Skin: Warm, dry, no erythema, no rash. Back: No tenderness, no CVA tenderness. Extremities: No tenderness, no cyanosis, no clubbing, ROM intact, no edema. Neurologic: Alert and oriented X 3, normal motor function, normal sensory function, no focal deficits noted. [] Psychologic: Affect normal, judgement normal, mood normal. [] Current Patient Data Vital Signs Vital Signs Date Time Temp Pulse Resp B/P Pulse Ox O2 Delivery O2 Flow Rate FiO2 01/26/17 16:30 94 18 110/67 95 Room Air 01/26/17 16:06 98.8 98.8 Lab Values Laboratory Tests Test 01/26/17 15:09 01/26/17 16:00 01/26/17 16:15 POC Urine HCG, Qualitative Hcg negative (Negative) Urine Collection Type Unknown Urine Color Yellow Urine Clarity Clear Urine pH 6.0 Urine Specific [place] 1.015 Urine Protein Negativemg/dL (NEG-TRACE) Urine Glucose (UA) Negativemg/dL (NEG) Urine Ketones (Stick) Negativemg/dL (NEG) Urine Blood Negative (NEG) Urine Nitrite Negative (NEG) Urine Bilirubin Negative (NEG) Urine Urobilinogen Dipstick 0.2mg/dL (0.2 mg/dL) Urine Leukocyte Esterase Trace (NEG) Urine RBC 0/HPF (0-2) Urine WBC Occ/HPF (0-4) Urine Squamous Epithelial Cells Few/LPF Urine Bacteria Few/HPF (0-FEW) Urine Mucus Marked/LPF White Blood Count 9.4x10^3/uL (4.0-11.0) Red Blood Count 4.31x10^6/uL (3.50-5.40) Hemoglobin 12.3g/dL (12.0-15.5) Hematocrit 38.0% (36.0-47.0) Mean Corpuscular Volume 88fL (79-100) Mean Corpuscular Hemoglobin 29pg (25-35) Mean Corpuscular Hemoglobin Concent 32g/dL (31-37) Red Cell Distribution Width 15.9% (11.5-14.5) H Platelet Count 416x10^3/uL (140-400) H Neutrophils (%) (Auto) 62% (31-73) Lymphocytes (%) (Auto) 28% (24-48) Monocytes (%) (Auto) 7% (0-9) Eosinophils (%) (Auto) 3% (0-3) Basophils (%) (Auto) 1% (0-3) Neutrophils # (Auto) 5.8x10^3uL (1.8-7.7) Lymphocytes # (Auto) 2.6x10^3/uL (1.0-4.8) Monocytes # (Auto) 0.6x10^3/uL (0.0-1.1) Eosinophils # (Auto) 0.3x10^3/uL (0.0-0.7) Basophils # (Auto) 0.1x10^3/uL (0.0-0.2) Sodium Level 142mmol/L (136-145) Potassium Level 4.1mmol/L (3.5-5.1) Chloride Level 105mmol/L (98-107) Carbon Dioxide Level 29mmol/L (21-32) Anion Gap 8 (6-14) Blood Urea Nitrogen 22mg/dL (7-20) H Creatinine 0.9mg/dL (0.6-1.0) Estimated GFR (Cockcroft-Gault) 66.0 BUN/Creatinine Ratio 24 (6-20) H Glucose Level 93mg/dL (70-99) Calcium Level 9.0mg/dL (8.5-10.1) Total Bilirubin 0.2mg/dL (0.2-1.0) Aspartate Amino Transferase (AST) 11U/L (15-37) L Alanine Aminotransferase (ALT) 17U/L (14-59) Alkaline Phosphatase 74U/L (46-116) Total Protein 7.3g/dL (6.4-8.2) Albumin 3.6g/dL (3.4-5.0) Albumin/Globulin Ratio 1.0 (1.0-1.7) Lipase 98U/L (73-393) Laboratory Tests 01/26/17 16:15 Laboratory Tests 01/26/17 16:15 EKG EKG [] Radiology/Procedures Radiology/Procedures [] Course & Med Decision Making Course & Med Decision Making Pertinent Labs and Imaging studies reviewed. (See chart for details) [] 51-year-old female presenting the emergency department with abdominal pain. Vital signs afebrile with mildly increased heart rate. Pertinent physical exam findings showed a nontender appendix nontender gallbladder. I looked up her use of schedule to medications on our [facility] website which showed multiple doses of clonazepam by multiple different providers tramadol and a few Percocet prescriptions. I am concerned that this patient has severe opioid addiction syndrome and feel that it is not in the patient's better interest to give this patient opioids. I explained this to the patient. I did not feel the patient had an emergent medical condition. She was subsequent discharged home to follow up with her PCP over the next 2-3 days. Dragon Disclaimer Dragon Disclaimer This electronic medical record was generated, in whole or in part, using a voice recognition dictation system. Departure Departure Impression: Primary Impression: Epigastric abdominal pain Additional Impression: Drug-seeking behavior Disposition: 01 HOME, SELF-CARE Condition: STABLE Referrals: MARITZA ALCARAZ MD (PCP) Patient Instructions: Opiate Dependence, Substance Abuse-Brief Additional Instructions: Thank you for allowing us to participate in your care today. Followup with your primary care physician in 3 days if your symptoms do not improve. If you do not have a primary care provider you can ask for a list of our primary care providers. Return to the emergency department you have any new or concerning findings. This should be evaluated by the primary care physician and any necessary consulting services for continued management within a few days after discharge. Return to emergency room if you have any new or concerning symptoms including but not limited to fever, chills, nausea, vomiting, intractable pain, any new rashes, chest pain, shortness of air, uncontrolled bleeding, difficulty breathing, and/or vision loss. You may have been prescribed medication that can change in your level of thinking and ability to operate machinery. These medications include hydrocodone and Ativan. Also, Benadryl has been known to do this as well. Be sure to check with your pharmacist and ask if the medications you've prescribed can affect your level of consciousness. I recommend not operating heavy machinery or driving while on medication such as these. Problem Qualifiers HANNAH ORTIZ MD Jan 26, 2017 17:06
== END 2017-01-26 17:17 | disposition home or self-care (01) ==
LOC: ER 15:52
DX: R10.13 Epigastric pain (principal); Z76.5 Malingerer [conscious simulation]; R11.10 Vomiting, unspecified; E78.00 Pure hypercholesterolemia, unspecified; J45.909 Unspecified asthma, uncomplicated; Z86.79 Personal history of other diseases of the circulatory system; Z88.6 Allergy status to analgesic agent
CPT/HCPCS: 36415; 80053; 81001; 81025; 83690; 84703; 85027; 99284

== ENCOUNTER 2017-02-08 14:50 | Emergency (ER) | payer OTHER ==
[2017-02-08] MEDS ORDERED: FAMOTIDINE 20 MG/2 ML VIAL IVP ONE (16:15)
[2017-02-08] MEDS ORDERED: LIDO:MAALOX:DONNATAL 1:1:1 15 ML SINGLE DOSE SWSW ONE (16:15)
--- NOTE | 2017-02-08 16:22 | PHYS DOC ---
Past Medical History Past Medical History: Asthma, Bronchitis, Depression, High Cholesterol Additional Past Medical Histor: HEART DISEASE Past Surgical History: Other Additional Past Surgical Histo: BACK SX, LEFT ELBOW Alcohol Use: None Drug Use: None Adult General Chief Complaint Chief Complaint: ABDOMINAL PAIN HPI HPI Patient is a 51 year old female with frequent emergency department visits for pain who presents with epigastric abdominal pain that is constant, nonradiating , exactly like prior emergency department visits. She also notes chronic back pain and leg pains. States her doctor prescribed her ibuprofen 800 mg to be taken 3 times per day; however she is only taking this in the morning with food. She denies worsening of her symptoms after taking ibuprofen. She denies bloody or dark stools. She did have slight nausea earlier, but she denies vomiting. She denies dysuria, hematuria, chest pain, dyspnea, fever or chills. She is asking this provider for tramadol or any other narcotic pain medicine other than ibuprofen. Review of Systems Review of Systems Constitutional: Denies fever or chills [] Eyes: Denies change in visual acuity, redness, or eye pain [] HENT: Denies nasal congestion or sore throat [] Respiratory: Denies cough or shortness of breath [] Cardiovascular: No additional information not addressed in HPI [] GI: Denies nausea, vomiting, bloody stools or diarrhea [] : Denies dysuria or hematuria [] Musculoskeletal: Denies joint pain [] Integument: Denies rash or skin lesions [] Neurologic: Denies headache, focal weakness or sensory changes [] Endocrine: Denies polyuria or polydipsia [] Current Medications Current Medications Current Medications Medications (Trade) Dose Ordered Sig/Jayy Start Time Stop Time Status Last Admin Dose Admin Famotidine (Pepcid) 20 mg 1X ONCE 02/08/17 16:15 02/08/17 16:16 DC 02/08/17 16:28 20 MG Multi-Ingredient Mouthwash/Gargle (Gi Cocktail Single Dose) 15 ml 1X ONCE 02/08/17 16:15 02/08/17 16:16 DC 02/08/17 16:28 15 ML Allergies Allergies Allergies Coded Allergies Type Severity Reaction Last Updated Verified acetaminophen Allergy Intermediate Rash 01/10/17 Yes ibuprofen Allergy Intermediate rash 09/19/16 No naproxen Allergy Intermediate rash 09/19/16 No Physical Exam Physical Exam Constitutional: Well developed, well nourished, no acute distress, non-toxic appearance. [] HENT: Normocephalic, atraumatic, bilateral external ears normal, oropharynx moist, no oral exudates, nose normal. [] Eyes: PERRLA, EOMI. [] Neck: Normal range of motion, supple. [] Cardiovascular:Heart rate regular rhythm [] Lungs & Thorax: Bilateral breath sounds clear to auscultation [] Abdomen: Bowel sounds normal, soft, minimal epigastric tenderness, no guarding or rebound. [] Skin: Warm, dry, no erythema, no rash. [] Back: Normal range of motion, no CVA tenderness. [] Extremities: No tenderness, ROM intact, no edema. [] Neurologic: Alert and oriented X 3, normal motor function, normal sensory function, no focal deficits noted. [] Psychologic: Affect normal, judgement normal, mood normal. [] Current Patient Data Vital Signs Vital Signs Date Time Temp Pulse Resp B/P Pulse Ox O2 Delivery O2 Flow Rate FiO2 02/08/17 17:24 70 14 135/70 100 Room Air 02/08/17 16:00 98.1 98.1 Lab Values Laboratory Tests Test 02/08/17 16:22 Sodium Level 140mmol/L (136-145) Potassium Level 3.9mmol/L (3.5-5.1) Chloride Level 106mmol/L (98-107) Carbon Dioxide Level 29mmol/L (21-32) Anion Gap 5 (6-14) L Blood Urea Nitrogen 22mg/dL (7-20) H Creatinine 0.8mg/dL (0.6-1.0) Estimated GFR (Cockcroft-Gault) 75.6 Glucose Level 92mg/dL (70-99) Calcium Level 8.9mg/dL (8.5-10.1) Total Bilirubin 0.2mg/dL (0.2-1.0) Direct Bilirubin 0.1mg/dL (0.0-0.2) Aspartate Amino Transferase (AST) 13U/L (15-37) L Alanine Aminotransferase (ALT) 17U/L (14-59) Alkaline Phosphatase 66U/L (46-116) Total Protein 7.7g/dL (6.4-8.2) Albumin 3.5g/dL (3.4-5.0) Lipase 99U/L (73-393) Laboratory Tests 02/08/17 16:22 Course & Med Decision Making Course & Med Decision Making Pertinent Labs and Imaging studies reviewed. (See chart for details) Laboratory evaluation is unremarkable. Discussed she should follow-up with her primary care doctor for further pain management. Return precautions given. She understands plan. Dragon Disclaimer Dragon Disclaimer This electronic medical record was generated, in whole or in part, using a voice recognition dictation system. Departure Departure Impression: Primary Impression: Epigastric abdominal pain Additional Impressions: Chronic low back pain Drug-seeking behavior Disposition: HOME, SELF-CARE Condition: STABLE Referrals: MARITZA ALCARAZ MD (PCP) Patient Instructions: Abdominal Pain, [id number] Additional Instructions: Follow-up with your primary care doctor. Return for any concerns. Problem Qualifiers Additional Impressions: Chronic low back pain Back pain laterality: unspecified Sciatica presence: unspecified whether sciatica present Qualified Code: M54.5 - Low back pain Myke CARRERO MD February 08, 2017 16:22
[2017-02-08 16:38] LABS: CALCIUM 8.9 mg/dL (8.5-10.1); CREATININE 0.8 mg/dL (0.6-1.0); GFR 75.6; POTASSIUM 3.9 mmol/L (3.5-5.1)
[2017-02-08 16:44] LABS: ALBUMIN 3.5 g/dL (3.4-5.0); DIRECT BILIRUBIN 0.1 mg/dL (0.0-0.2); TOTAL BILIRUBIN 0.2 mg/dL (0.2-1.0); TOTAL PROTEIN 7.7 g/dL (6.4-8.2)
[2017-02-08 17:24] VITALS: BP 135/70
== END 2017-02-08 17:30 | disposition home or self-care (01) ==
LOC: ER 14:50
DX: R10.13 Epigastric pain (principal); G89.29 Other chronic pain; M54.5 Low back pain; M79.606 Pain in leg, unspecified; Z76.5 Malingerer [conscious simulation]; E78.00 Pure hypercholesterolemia, unspecified; F32.9 Major depressive disorder, single episode, unspecified; J45.909 Unspecified asthma, uncomplicated; Z88.8 Allergy status to other drugs, medicaments and biological substances; Z88.6 Allergy status to analgesic agent
CPT/HCPCS: 36415; 80048; 80076; 83690; 96374; 99284; S0028

== ENCOUNTER 2017-02-10 18:23 | Emergency (ER) | payer OTHER ==
[~2017-02-10] VITALS: Ht 165.1 cm; Wt 90.7 kg
[~2017-02-10 18:23] MED LIST changes: -CLIN-44 PO; +CLIN150C14 PO; -TRAM-29 PO; +TRAM-48 PO
[2017-02-10 18:36] VITALS: BP 145/82
--- NOTE | 2017-02-10 18:51 | PHYS DOC ---
Past Medical History Past Medical History: Asthma, Bronchitis, Depression, High Cholesterol Additional Past Medical Histor: HEART DISEASE Past Surgical History: Other Additional Past Surgical Histo: BACK SX, LEFT ELBOW Alcohol Use: None Drug Use: None Adult General Chief Complaint Chief Complaint: BACK INJURY HPI HPI Patient is a 51 year old female presents to emergency prior to stating that she fell on her shower. Patient states that she was taking a shower around 5:30 tonight when she slipped and fell. She is only planning of lower back pain. Patient does state she has chronic back issues. Patient also is requesting tramadol at this time. Patient has presented a letter from her who states that she is having back pain from a fall that she had in the stairs at home. Patient states she is allergic to Tylenol or ibuprofen as these causes nausea and vomiting. She ambulated into the emergency department with a good steady gait with her cane. She denies any loss of bowel or bladder. Review of Systems Review of Systems Constitutional: Denies fever or chills [] Eyes: Denies change in visual acuity, redness, or eye pain [] HENT: Denies nasal congestion or sore throat [] Respiratory: Denies cough or shortness of breath [] Cardiovascular: No additional information not addressed in HPI [] GI: Denies abdominal pain, nausea, vomiting, bloody stools or diarrhea [] : Denies dysuria or hematuria [] Musculoskeletal: Denies back pain or joint pain [] Integument: Denies rash or skin lesions [] Neurologic: Denies headache, focal weakness or sensory changes [] Endocrine: Denies polyuria or polydipsia [] Allergies Allergies Allergies Coded Allergies Type Severity Reaction Last Updated Verified acetaminophen Allergy Intermediate Rash 01/10/17 Yes ibuprofen Allergy Intermediate rash 09/19/16 No naproxen Allergy Intermediate rash 09/19/16 No Physical Exam Physical Exam Constitutional: Well developed, well nourished, no acute distress, non-toxic appearance. [] HENT: Normocephalic, atraumatic, bilateral external ears normal, oropharynx moist, no oral exudates, nose normal. [] Eyes: PERRLA, EOMI, conjunctiva normal, no discharge. [] Neck: Normal range of motion, no tenderness, supple, no stridor. [] Cardiovascular:Heart rate regular rhythm Lungs & Thorax: No respiratory distress Skin: Warm, dry, no erythema, no rash. [] Back: No thoracic, lumbar spinal tenderness, no crepitus no deformities no step- offs noted. And did have tenderness on bilateral lower back areas. Patient was able to do straight leg raises with minimal discomfort noted. No CVA tenderness. [] Extremities: No tenderness, no cyanosis, no clubbing, ROM intact, no edema. Peripheral pulses 2+ cap refill brisk less than 2 seconds. Neurologic: Alert and oriented X 3, normal motor function, normal sensory function, no focal deficits noted. [] Psychologic: Affect normal, judgement normal, mood normal. [] Current Patient Data Vital Signs Vital Signs Date Time Temp Pulse Resp B/P Pulse Ox O2 Delivery O2 Flow Rate FiO2 02/10/17 18:36 98.4 84 22 97 Room Air 98.4 EKG EKG [] Radiology/Procedures Radiology/Procedures [] Course & Med Decision Making Course & Med Decision Making Pertinent Labs and Imaging studies reviewed. (See chart for details) Patient presents to the emergency department stating that she had fallen in the shower at 5:30 tonight. She has a note from her who states that she had fallen in the stairs and is having back pain she has multiple different stories as to how her back is injured today. She states that she has had a tramadol and is requesting tramadol as a prescription for her pain management. I am suspicious of the mechanism of injury as patient is able to lean over the bed and grabbed her purse with minimal discomfort noted. Patient will therefore not provided with a prescription for narcotics she will have her be provided with a prescription for Flexeril to help with muscle spasms and discomfort with recommendations to follow-up with her primary care physician tomorrow. She may still take ibuprofen for pain and discomfort as well as Tylenol as she states these medications only cause her to have nausea. Recommended eating to take these medications. Spoke with patient in regards to pain management. Patient states that she needs tramadol. Explained to patient that she will need to follow-up with her primary care physician for continuation of narcotics. Patient has been noted to have multiple visits here to the emergency department for tramadol prescriptions. Patient was recommended ice packs on 20 minutes off 20 minutes several times a day. She'll be provided with Flexeril to help with muscle spasms and discomfort. She'll be discharged home in stable condition signs and symptoms to return back to emergency department been provided. [] Dragon Disclaimer Dragon Disclaimer This electronic medical record was generated, in whole or in part, using a voice recognition dictation system. Departure Departure Impression: Primary Impression: Back pain Additional Impression: Drug-seeking behavior Disposition: HOME, SELF-CARE Condition: STABLE Referrals: MARITZA ALCARAZ MD (PCP) Patient Instructions: Back Pain, Adult, [id number], Substance Abuse-Brief Additional Instructions: You have been examined for back pain today. You may take Flexeril as prescribed for muscle spasms. This medication will cause drowsiness do not take any be alert and oriented. Ice packs on 20 minutes off 20 minutes several times a day. You need to follow-up with your primary care physician for further narcotic pain medication. The emergency department is not designed to provide continuation of chronic pain medications Follow-up with your primary care physician tomorrow. Return back to emergency prior signs symptoms of become worse. Scripts Cyclobenzaprine Hcl 10 Mg [id number] Mg PO TID #15 TAB Prov:RICHARD MULLINS APRN 02/10/17 Problem Qualifiers RICHARD MULLINS APRN February 10, 2017 18:50
[2017-02-10] MEDS ORDERED: CYCL10TA2 PO (18:55)
== END 2017-02-10 19:00 | disposition home or self-care (01) ==
LOC: ER 18:23
DX: M54.5 Low back pain (principal); Z76.5 Malingerer [conscious simulation]; G89.29 Other chronic pain; R11.2 Nausea with vomiting, unspecified; I51.9 Heart disease, unspecified; J45.909 Unspecified asthma, uncomplicated; E78.00 Pure hypercholesterolemia, unspecified; Z88.5 Allergy status to narcotic agent; Z88.6 Allergy status to analgesic agent; Z86.79 Personal history of other diseases of the circulatory system; W18.2XXA Fall in (into) shower or empty bathtub, initial encounter; Y93.E1 Activity, personal bathing and showering; Y99.8 Other external cause status; Y92.89 Other specified places as the place of occurrence of the external cause
CPT/HCPCS: 99283

== ENCOUNTER 2017-02-12 11:48 | Emergency (ER) | payer OTHER ==
[~2017-02-12] VITALS: Ht 167.6 cm; Wt 90.7 kg
[2017-02-12 12:00] VITALS: BP 150/88
--- NOTE | 2017-02-12 12:52 | RAD ---
Indication fall. Pain. AP and lateral views of the lumbar spine were obtained as well as a coned view targeted to the lumbosacral junction. Vertebral height is well maintained. Small osteophytes are seen at several levels. There is mild disc space narrowing at L1-2. An acute bony finding is not seen. IMPRESSION: Mild degenerative change. No acute finding seen
--- NOTE | 2017-02-12 12:59 | PHYS DOC ---
Past Medical History Past Medical History: Asthma, Bronchitis, Depression, High Cholesterol Additional Past Medical Histor: HEART DISEASE Past Surgical History: Other Additional Past Surgical Histo: BACK SX, LEFT ELBOW Alcohol Use: None Drug Use: None Adult General Chief Complaint Chief Complaint: BACK INJURY HPI HPI Patient is a 51 year old female with history of high cholesterol, asthma, bronchitis, who presents today with bilateral low back pain radiating to bilateral lower extremities that she states began 2 days ago. Patient is well known to this ED for chronic back pain and requests for ultram. She is requesting RX for Ultram for her pain. She states she was walking down some steps 2 days ago and she fell. She has a note from the stating she fell down steps two days ago. Patient denies any loss of consciousness. Patient was seen in the ED 2 days ago with the same complaint and the same note. Patient denies any loss of bowel bladder function. Review of Systems Review of Systems Constitutional: Denies fever or chills [] Eyes: Denies change in visual acuity, redness, or eye pain [] HENT: Denies nasal congestion or sore throat [] GI: Denies abdominal pain, nausea, vomiting, bloody stools or diarrhea [] : Denies dysuria or hematuria [] Musculoskeletal: Bilateral low back pain radiating to bilateral lower extremities. Integument: Denies rash or skin lesions [] Neurologic: Denies headache, focal weakness or sensory changes [] Endocrine: Denies polyuria or polydipsia [] Allergies Allergies Allergies Coded Allergies Type Severity Reaction Last Updated Verified acetaminophen Allergy Intermediate Rash 01/10/17 Yes ibuprofen Allergy Intermediate rash 09/19/16 No naproxen Allergy Intermediate rash 09/19/16 No Physical Exam Physical Exam Constitutional: Well developed, well nourished, no acute distress, non-toxic appearance. [] HENT: Normocephalic, atraumatic, bilateral external ears normal, oropharynx moist, no oral exudates, nose normal. [] Abdomen: Bowel sounds normal, soft, no tenderness, no masses, no pulsatile masses. [] Skin: Warm, dry, no erythema, no rash. [] Back: diffuse paraspinal muscle tenderness to bilateral low lumbar region, no midline tenderness, no CVA tenderness. [] Extremities: No tenderness, no cyanosis, no clubbing, ROM intact, no edema. [] Neurologic: Alert and oriented X 3, normal motor function, normal sensory function, no focal deficits noted. [] Psychologic: Affect normal, judgement normal, mood normal. [] Current Patient Data Vital Signs Vital Signs Date Time Temp Pulse Resp B/P (MAP) Pulse Ox O2 Delivery O2 Flow Rate FiO2 02/12/17 12:00 98.5 112 18 97 Room Air 98.5 EKG EKG [] Radiology/Procedures Radiology/Procedures [] Course & Med Decision Making Course & Med Decision Making Pertinent Labs and Imaging studies reviewed. (See chart for details) Patient is in the ED complaining of bilateral low back pain after falling down some steps 2 days ago. She has a note from the stating she fell 2 days ago and and they would like us to help her with the pain. Patient is well known to this ED for chronic back pain and is always asking/begging for Ultram. She was seen in the ED on February 10, 2017 for the same complaint with the same note. If she fell 2 days ago from February 10 then today should be four days out. I suspect she carries this note and presents it to any hospital she goes to. X-rays of the lumbar spine interpreted by radiologist are negative for any acute findings. I requested patient to give me her 's contact number. I spoke with patient's CARLOS [phone], informed the we see this patient in the ED multiple times for pain related complaints and she is always asking for Ultram. The states patient moves from one ED to the other asking for pain medicines. The states if patient is not given what she wants one ED she'll go to another one. Informed the we will not give patient any more pain medicines for chronic pain. The stated patient has an appointment with the pain clinic at [facility] on February 25, 2017 at 9:30 AM. Informed him, she to follow-up with the pain clinic otherwise we are no longer going to treating her chronic pain. Dragon Disclaimer Dragon Disclaimer This electronic medical record was generated, in whole or in part, using a voice recognition dictation system. Departure Departure Impression: Primary Impression: Fall down steps Additional Impressions: Chronic sciatica of right side Chronic sciatica of left side Chronic back pain Narcotic dependence Disposition: 01 HOME, SELF-CARE Condition: STABLE Referrals: MARITZA ALCARAZ MD (PCP) Follow-up with your own doctor OR [facility] Patient Instructions: Back Pain, Adult, Fall Prevention and Home Safety Additional Instructions: You were seen for chronic back pain. Your x-rays of the lumbar spine are normal. We will not give you a prescription for Ultram or any narcotics in our emergency room for chronic pain. You were given a prescription for Flexeril to 3 days ago. Take it as needed for pain. Follow-up with your own doctor as soon as you can. You have an appointment at [facility] on February 25, 2017 at 9:30 AM at the pain clinic. Problem Qualifiers Primary Impression: Fall down steps Encounter type: subsequent encounter Qualified Codes: W10.8XXD - Fall (on) ( from) other stairs and steps, subsequent encounter Additional Impressions: Chronic back pain Back pain location: low back pain Back pain laterality: bilateral Sciatica presence: with sciatica Sciatica laterality: sciatica laterality unspecified Qualified Codes: M54.40 - Lumbago with sciatica, unspecified side; G89.29 - Other chronic pain MEMO NELSON APRN February 12, 2017 12:59
== END 2017-02-12 13:16 | disposition home or self-care (01) ==
LOC: ER 11:48
DX: G89.29 Other chronic pain (principal); M54.42 Lumbago with sciatica, left side; M54.41 Lumbago with sciatica, right side; E78.00 Pure hypercholesterolemia, unspecified; J45.909 Unspecified asthma, uncomplicated; F11.20 Opioid dependence, uncomplicated; Z86.79 Personal history of other diseases of the circulatory system; Z88.6 Allergy status to analgesic agent; W10.8XXA Fall (on) (from) other stairs and steps, initial encounter; Y93.89 Activity, other specified; Y99.8 Other external cause status; Y92.89 Other specified places as the place of occurrence of the external cause
CPT/HCPCS: 72100; 99284

== ENCOUNTER 2017-02-23 11:24 | Emergency (ER) | payer OTHER ==
[~2017-02-23] VITALS: Ht 165.1 cm; Wt 90.7 kg
[~2017-02-23 11:24] MED LIST changes: +CLIN-44 PO; -CLIN150C14 PO; +TRAM-29 PO; -TRAM-48 PO
[2017-02-23 12:45] VITALS: BP 120/80
--- NOTE | 2017-02-23 13:06 | RAD ---
Examination: Ultrasound bilateral lower extremity venous duplex History: History of bilateral lower extremity edema Comparison: None available Technique: Grayscale, color Doppler 2-D, spectral waveform analysis of the bilateral lower extremity arterial system was performed Findings: The visualized common femoral vein, superficial femoral vein, popliteal vein demonstrate normal compression augmentation of flow. The visualized calf veins are patent. Impression: No evidence of deep venous thrombosis identified in the visualized bilateral lower extremity venous system
--- NOTE | 2017-02-23 13:16 | PHYS DOC ---
Past Medical History Past Medical History: Asthma, Bronchitis, Depression, High Cholesterol Additional Past Medical Histor: HEART DISEASE Past Surgical History: Other Additional Past Surgical Histo: BACK SX, LEFT ELBOW Alcohol Use: None Drug Use: None Adult General Chief Complaint Chief Complaint: LOWER EXTREMITY SWELLING HPI HPI Patient is a 51 year old female who presents from [facility] for evaluation of right greater than left lower leg pain and swelling over the past few days. Notes sharp pain to medial calves and dorsum of feet. Pain is constant, worse with movement. No trauma, f/c, n/v, cough, dyspnea, hemoptysis, color change, sensory change. Also complains of chronic back pain asking for narcotic pain meds. Review of Systems Review of Systems Constitutional: Denies fever or chills [] Eyes: Denies change in visual acuity, redness, or eye pain [] HENT: Denies nasal congestion or sore throat [] Respiratory: Denies cough or shortness of breath [] Cardiovascular: No additional information not addressed in HPI [] GI: Denies abdominal pain, nausea, vomiting, bloody stools or diarrhea [] : Denies dysuria or hematuria [] Musculoskeletal: Denies back pain or joint pain [] Integument: Denies rash or skin lesions [] Neurologic: Denies headache, focal weakness or sensory changes [] Endocrine: Denies polyuria or polydipsia [] Current Medications Current Medications Current Medications Medications (Trade) Dose Ordered Sig/Jayy Start Time Stop Time Status Last Admin Dose Admin Tramadol HCl (Ultram) 50 mg 1X ONCE 02/23/17 13:30 02/23/17 13:30 DC 02/23/17 13:03 50 MG Allergies Allergies Allergies Coded Allergies Type Severity Reaction Last Updated Verified acetaminophen Allergy Intermediate Rash 01/10/17 Yes ibuprofen Allergy Intermediate rash 09/19/16 No naproxen Allergy Intermediate rash 09/19/16 No Physical Exam Physical Exam Constitutional: Well developed, well nourished, no acute distress, non-toxic appearance. [] HENT: Normocephalic, atraumatic, bilateral external ears normal, oropharynx moist, nose normal. [] Eyes: PERRLA, EOMI. [] Neck: Normal range of motion, supple. [] Cardiovascular:Heart rate regular rhythm [] Lungs & Thorax: Bilateral breath sounds clear to auscultation [] Abdomen: Bowel sounds normal, soft, no tenderness. [] Skin: Warm, dry, no erythema, no rash. [] Back: Normal ROM. [] Extremities: Mild soft tissue tenderness through bilateral calves with no discoloration, ROM intact, bilateral 1+ pretibial edema, no palpable cord, soft compartments, no induration/crepitance/warmth. [] Neurologic: Alert and oriented X 3, normal motor function, normal sensory function, no focal deficits noted. [] Psychologic: Affect normal, judgement normal, mood normal. [] Current Patient Data Vital Signs Vital Signs Date Time Temp Pulse Resp B/P (MAP) Pulse Ox O2 Delivery O2 Flow Rate FiO2 02/23/17 12:45 81 18 120/80 (93) 96 Room Air 02/23/17 11:47 99.3 99.3 Radiology/Procedures Radiology/Procedures Ultrasound bilateral venous Doppler Impression: No evidence of deep venous thrombosis identified in the visualized bilateral lower extremity venous system DICTATED and SIGNED BY: ZENOBIA DIALLO MD DATE: 02/23/17 1302 Course & Med Decision Making Course & Med Decision Making Pertinent Labs and Imaging studies reviewed. (See chart for details) Has recent normal creatinine, albumin, and pro-BNP. Venous doppler neg as above. Encouraged PCP follow up and supportive care. Return precautions given. She understands plan. Dragon Disclaimer Dragon Disclaimer This electronic medical record was generated, in whole or in part, using a voice recognition dictation system. Departure Departure Impression: Primary Impression: Bilateral leg pain Additional Impression: Localized swelling of both lower legs Disposition: 01 HOME, SELF-CARE Condition: STABLE Patient Instructions: Musculoskeletal Pain Additional Instructions: Your ultrasound of your legs do not show any evidence of blood clots. Follow-up with your primary care doctor. Return for any concerns. Problem Qualifiers Myke CARRERO MD February 23, 2017 13:16
[2017-02-23] MEDS ORDERED: traMADol 50 MG TABLET PO ONE (13:30)
== END 2017-02-23 13:26 | disposition home or self-care (01) ==
LOC: ER 11:29
DX: M79.605 Pain in left leg (principal); M79.604 Pain in right leg; R22.43 Localized swelling, mass and lump, lower limb, bilateral; G89.29 Other chronic pain; J45.909 Unspecified asthma, uncomplicated; F32.9 Major depressive disorder, single episode, unspecified; E78.00 Pure hypercholesterolemia, unspecified; Z88.8 Allergy status to other drugs, medicaments and biological substances; Z88.6 Allergy status to analgesic agent
CPT/HCPCS: 93970; 99284-25

== ENCOUNTER 2017-03-01 13:13 | Emergency (ER) | payer OTHER ==
[~2017-03-01] VITALS: Ht 165.1 cm; Wt 90.7 kg
[2017-03-01 13:24] VITALS: BP 143/82
[2017-03-01] MEDS ORDERED: ONDANSETRON ODT 4 MG TAB.RAPDIS. PO ONE (13:45)
[2017-03-01] MEDS ORDERED: ONDA4TAB10 SL (13:49)
--- NOTE | 2017-03-01 13:50 | PHYS DOC ---
Past Medical History Past Medical History: Asthma, Bronchitis, Depression, High Cholesterol Additional Past Medical Histor: HEART DISEASE Past Surgical History: Other Additional Past Surgical Histo: BACK SX, LEFT ELBOW Alcohol Use: None Drug Use: None Adult General Chief Complaint Chief Complaint: BACK PAIN - NO INJURY [facility] HPI Patient is a 51 year old female presents to the emergency department with a history of back and lower leg pain. Patient states this is her normal pain. She states she has been walking more and has swelling in her legs. She denies SOA or difficultly breathing. Patient states she has been taking Tylenol for pain and has become nauseated with the pain. She states she stopped taking the medication yesterday. Patient states she has not notified her doctor about the vomiting. Patient denies abdominal pain and discomfort. Patient denies any injury or trauma to her back. Review of Systems Review of Systems Constitutional: Denies fever or chills [] Eyes: Denies change in visual acuity, redness, or eye pain [] HENT: Denies nasal congestion or sore throat [] Respiratory: Denies cough or shortness of breath [] Cardiovascular: No additional information not addressed in HPI [] GI: Denies abdominal pain, nausea, vomiting, bloody stools or diarrhea [] : Denies dysuria or hematuria [] Musculoskeletal: back pain and bilateral leg pain Integument: Denies rash or skin lesions [] Neurologic: Denies headache, focal weakness or sensory changes [] Endocrine: Denies polyuria or polydipsia [] Allergies Allergies Allergies Coded Allergies Type Severity Reaction Last Updated Verified acetaminophen Allergy Intermediate Rash 01/10/17 Yes ibuprofen Allergy Intermediate rash 09/19/16 No naproxen Allergy Intermediate rash 09/19/16 No Physical Exam Physical Exam Constitutional: Well developed, well nourished, no acute distress, non-toxic appearance. [] HENT: Normocephalic, atraumatic, bilateral external ears normal, oropharynx moist, no oral exudates, nose normal. [] Eyes: PERRLA, EOMI, conjunctiva normal, no discharge. [] Neck: Normal range of motion, no tenderness, supple, no stridor. [] Cardiovascular:Heart rate regular rhythm, no murmur [] Lungs & Thorax: Bilateral breath sounds clear to auscultation [] Skin: Warm, dry, no erythema, no rash. [] Back: No tenderness Extremities: No tenderness, no cyanosis, no clubbing, ROM intact, no edema. I do not appreciate any swelling or edema noted in bilateral lower extremities. 2 + peripheral pulses Refill brisk less than 2 seconds. Neurologic: Alert and oriented X 3, normal motor function, normal sensory function, no focal deficits noted. [] Psychologic: Affect normal, judgement normal, mood normal. [] Current Patient Data Vital Signs Vital Signs Date Time Temp Pulse Resp B/P (MAP) Pulse Ox O2 Delivery O2 Flow Rate FiO2 03/01/17 13:24 98.3 111 16 97 Room Air 98.3 EKG EKG [] Radiology/Procedures Radiology/Procedures [] Course & Med Decision Making Course & Med Decision Making Pertinent Labs and Imaging studies reviewed. (See chart for details) Patient will be discharged home in stable condition. She'll be provided with Zofran in the emergency department which she can take for Tylenol for pain and discomfort. She was recommended follow-up with her primary care physician for further pain management. She'll be discharged home in stable condition signs symptoms to return back to emergency department been provided. Patient agrees with discharge instructions treatment regimens and follow-up recommendations. [] Dragon Disclaimer Dragon Disclaimer This electronic medical record was generated, in whole or in part, using a voice recognition dictation system. Departure Departure Impression: Primary Impression: Chronic low back pain Disposition: 01 HOME, SELF-CARE Condition: STABLE Referrals: MARITZA ALCARAZ MD (PCP) Patient Instructions: Chronic Back Pain Additional Instructions: Activity as tolerated. Continue your home medications for pain and discomfort. Zofran as needed for nausea and vomiting. Follow-up with your primary care physician for further pain management. Return back to emergency prior signs symptoms of become worse. Scripts Ondansetron (ZOFRAN ODT) 4 Mg Tab.rapdis 1 TAB SL Q8HRS, #10 TAB Prov: RICHARD MULLINS CHILD CARE TEAM LEAD 03/01/17 RICHARD MULLINS CHILD CARE TEAM LEAD March 01, 2017 13:50
== END 2017-03-01 13:55 | disposition home or self-care (01) ==
LOC: ER 13:13
DX: G89.29 Other chronic pain (principal); M54.5 Low back pain; M79.662 Pain in left lower leg; M79.661 Pain in right lower leg; M79.89 Other specified soft tissue disorders; Z88.6 Allergy status to analgesic agent
CPT/HCPCS: 99283; Q0162

== ENCOUNTER 2017-03-21 13:19 | Emergency (ER) | payer OTHER ==
[~2017-03-21] VITALS: Ht 165.1 cm; Wt 90.7 kg
[~2017-03-21 13:19] MED LIST changes: -CLIN-44 PO; +CLIN150C14 PO; +ONDA4TAB10 SL; -TRAM-29 PO; +TRAM-48 PO
[2017-03-21 13:34] VITALS: BP 135/75
[2017-03-21] MEDS ORDERED: GABA-585 PO (13:48)
[2017-03-21] MEDS ORDERED: ACYC800T PO (13:48)
[2017-03-21] MEDS ORDERED: PRED20TA PO (13:48)
--- NOTE | 2017-03-21 13:48 | PHYS DOC ---
Past Medical History Past Medical History: No Pertinent History Additional Past Medical Histor: HEART DISEASE Past Surgical History: Other Additional Past Surgical Histo: back Alcohol Use: Occasionally Drug Use: None Adult General Chief Complaint Chief Complaint: BACK PAIN OR INJURY HPI HPI Patient is a 51 year old female presents to the department complaining of left lower back pain with a rash that does not appear to cross over the midline. Patient states that the rash itches and she has pain that is deeper inside. Member who is interpreting for the patient states she is unable to identify whether the patient has had chickenpox in the past. This reddened area appears to be slightly pressure with no drainage or discharge noted from the site. She has 2 separate areas of this on the left back and side. She'll states that the back pain started first before the rash. She states that the pain is a sharp stabbing type pain. Review of Systems Review of Systems Constitutional: Denies fever or chills [] Eyes: Denies change in visual acuity, redness, or eye pain [] HENT: Denies nasal congestion or sore throat [] Respiratory: Denies cough or shortness of breath [] Cardiovascular: No additional information not addressed in HPI [] GI: Denies abdominal pain, nausea, vomiting, bloody stools or diarrhea [] : Denies dysuria or hematuria [] Musculoskeletal: Denies back pain or joint pain [] Integument: rash denies skin lesions [] Neurologic: Denies headache, focal weakness or sensory changes [] Endocrine: Denies polyuria or polydipsia [] Allergies Allergies Allergies Coded Allergies Type Severity Reaction Last Updated Verified acetaminophen Allergy Intermediate Rash 01/10/17 Yes ibuprofen Allergy Intermediate rash 09/19/16 No naproxen Allergy Intermediate rash 09/19/16 No Physical Exam Physical Exam Constitutional: Well developed, well nourished, no acute distress, non-toxic appearance. [] HENT: Normocephalic, atraumatic, bilateral external ears normal, oropharynx moist, no oral exudates, nose normal. [] Eyes: PERRLA, EOMI, conjunctiva normal, no discharge. [] Neck: Normal range of motion, no tenderness, supple, no stridor. [] Cardiovascular:Heart rate regular rhythm Lungs & Thorax: no respiratory distress noted Skin: Warm, dry, no erythema, Rash noted to the left lower back area that does not cross over the mid line. Rash appears to be pustule type with no drainage or discharge Back: No tenderness Extremities: No tenderness, no cyanosis, no clubbing, ROM intact, no edema. [] Neurologic: Alert and oriented X 3, normal motor function, normal sensory function, no focal deficits noted. [] Psychologic: Affect normal, judgement normal, mood normal. [] Current Patient Data Vital Signs Vital Signs Date Time Temp Pulse Resp B/P (MAP) Pulse Ox O2 Delivery O2 Flow Rate FiO2 03/21/17 13:34 98.0 68 18 96 Room Air 98.0 EKG EKG [] Radiology/Procedures Radiology/Procedures [] Course & Med Decision Making Course & Med Decision Making Pertinent Labs and Imaging studies reviewed. (See chart for details) Patient will be discharged home with gabapentin in which she states she hasn't home but she will still be provided with a prescription. She'll be provided with acyclovir and prednisone. She has been instructed that Benadryl will cause drowsiness do not take any be alert and oriented. We'll also recommended Benadryl to help with the itching. Keep the areas clean dry and cool. Patient is also requesting tramadol which she will not be provided with as this is a recurrent medication she is requesting a return she comes to the emergency department. Recommended patient follow-up with her primary care physician if she has further pain needs. Patient will be discharged home in stable condition signs symptoms to return back to emergency department has been provided. [] Dragon Disclaimer Dragon Disclaimer This electronic medical record was generated, in whole or in part, using a voice recognition dictation system. Departure Departure Impression: Primary Impression: Shingles Disposition: 01 HOME, SELF-CARE Condition: STABLE Referrals: MARITZA ALCARAZ MD (PCP) Patient Instructions: Acyclovir tablets or capsules, Shingles, [id number] Additional Instructions: Activity as tolerated. Medications as prescribed. Benadryl will cause drowsiness do not take any be alert and oriented. Keep the rash clean dry and cool. Good handwashing whenever touching the rash. Aveeno baths may also help soothe the skin. Followup with your primary care physician in the next 3-5 days. Return to the emergency department for signs and symptoms of become worse. Scripts Gabapentin (GABAPENTIN) 100 Mg Capsule 100 MG PO TID, #30 CAP Prov: RICHARD MULLINS APRN 03/21/17 Prednisone (PREDNISONE) 20 Mg Tablet 40 MG PO DAILY for 7 Days, #14 TAB Prov: RICHARD MULLINS APRN 03/21/17 Acyclovir (ACYCLOVIR) 800 Mg Tablet 1 TAB PO 5XDAY, #50 TAB Prov: RICHARD MULLINS APRN 03/21/17 RICHARD MULLINS APRN Mar 21, 2017 13:48
== END 2017-03-21 13:53 | disposition home or self-care (01) ==
LOC: ER 13:19
DX: B02.9 Zoster without complications (principal); M54.5 Low back pain; Z88.6 Allergy status to analgesic agent
CPT/HCPCS: 99283

== ENCOUNTER 2017-03-26 19:23 | Emergency (ER) | payer OTHER ==
[~2017-03-26] VITALS: Ht 165.1 cm; Wt 90.7 kg
[~2017-03-26 19:23] MED LIST changes: +ACYC800T PO; +GABA-585 PO
[2017-03-26 19:45] VITALS: BP 133/87
--- NOTE | 2017-03-26 19:54 | PHYS DOC ---
Past Medical History Past Medical History: No Pertinent History Additional Past Medical Histor: HEART DISEASE Past Surgical History: Other Additional Past Surgical Histo: back Alcohol Use: Occasionally Drug Use: None Adult General Chief Complaint Chief Complaint: LOWER BACK PAIN OR INJURY HPI HPI Patient is a 51 year old female with a history of high cholesterol and chronic back pain with sciatica who presents today with chronic back pain radiating to bilateral lower extremities. Patient states 4 days ago she was seen at [facility] pain clinic and got injections to her back as well as the knees. Patient states she still has ongoing pain. Patient denies any trauma. Denies any loss of bowel bladder function. Review of Systems Review of Systems Constitutional: Denies fever or chills [] Eyes: Denies change in visual acuity, redness, or eye pain [] GI: Denies abdominal pain, nausea, vomiting, bloody stools or diarrhea [] : Denies dysuria or hematuria [] Musculoskeletal: Chronic back pain Integument: Denies rash or skin lesions [] Neurologic: Denies headache, focal weakness or sensory changes [] Endocrine: Denies polyuria or polydipsia [] Current Medications Current Medications Current Medications Medications (Trade) Dose Ordered Sig/Jayy Start Time Stop Time Status Last Admin Dose Admin Methocarbamol (Robaxin) 500 mg 1X STAT 03/26/17 20:04 03/26/17 20:06 DC Tramadol HCl (Ultram) 50 mg 1X ONCE 03/26/17 20:00 03/26/17 20:01 DC Allergies Allergies Allergies Coded Allergies Type Severity Reaction Last Updated Verified acetaminophen Allergy Intermediate Rash 01/10/17 Yes ibuprofen Allergy Intermediate rash 09/19/16 No naproxen Allergy Intermediate rash 09/19/16 No Physical Exam Physical Exam Constitutional: Well developed, well nourished, no acute distress, non-toxic appearance. [] HENT: Normocephalic, atraumatic, bilateral external ears normal, oropharynx moist, no oral exudates, nose normal. [] Abdomen: Bowel sounds normal, soft, no tenderness, no masses, no pulsatile masses. [] Skin: Warm, dry, no erythema, no rash. [] Back: Diffuse paraspinal muscles to bilateral low lumbar region, no midline tenderness, no CVA tenderness. [] Extremities: No tenderness, no cyanosis, no clubbing, ROM intact, no edema. [] Neurologic: Alert and oriented X 3, normal motor function, normal sensory function, no focal deficits noted. [] Psychologic: Affect normal, judgement normal, mood normal. [] Current Patient Data Vital Signs Vital Signs Date Time Temp Pulse Resp B/P (MAP) Pulse Ox O2 Delivery O2 Flow Rate FiO2 03/26/17 19:45 98.6 100 18 96 Room Air 98.6 EKG EKG [] Radiology/Procedures Radiology/Procedures [] Course & Med Decision Making Course & Med Decision Making Pertinent Labs and Imaging studies reviewed. (See chart for details) This is a 51-year-old female patient who presents to the ED today with complaints of chronic low back pain radiating to bilateral lower extremities. Patient is well known to this ED for her chronic back pain and mostly requesting Ultram. We have told patient and multiple times we will not give her any prescriptions for Ultram because she gets multiple prescriptions from different providers in hospitals. Patient was discharged and instructed to follow-up with the pain clinic as well as primary care doctor as soon as she can. She was given 1 tablet of Ultram and Robaxin in the ED. Patient is in the ED with the and I informed both of them we will not refill or give patient any prescription strength pain medications especially narcotics because she has been non-to get prescriptions from multiple providers. I gave her RX for flexeril for home use. Dragon Disclaimer Dragon Disclaimer This electronic medical record was generated, in whole or in part, using a voice recognition dictation system. Departure Departure Impression: Primary Impression: Sciatic nerve pain Additional Impression: Chronic back pain Disposition: HOME, SELF-CARE Condition: STABLE Referrals: MARITZA ALCARAZ MD (PCP) follow up with your pain clinic doctor on Wednesday next week Patient Instructions: Back Pain, Adult, Sciatica with Rehab-SportsMed Additional Instructions: You were seen chronic back pain. We highly recommend you follow-up with the pain clinic or your primary care doctor. Scripts Cyclobenzaprine Hcl (CYCLOBENZAPRINE HCL) 10 Mg Tablet 1 TAB PO TID, #30 TAB Prov: MEMO NELSON [employer] 03/26/17 Problem Qualifiers Primary Impression: Sciatic nerve pain Laterality: right Qualified Codes: M54.31 - Sciatica, right side Additional Impression: Chronic back pain Back pain location: low back pain Back pain laterality: bilateral Sciatica presence: with sciatica Sciatica laterality: bilateral sciatica Qualified Codes: M54.42 - Lumbago with sciatica, left side; M54.41 - Lumbago with sciatica, right side; G89.29 - Other chronic pain MEMO NELSON APRN Mar 26, 2017 19:54
[2017-03-26] MEDS ORDERED: traMADol 50 MG TABLET PO ONE (20:00)
[2017-03-26] MEDS ORDERED: METHOCARBAMOL 500 MG TABLET PO STA (20:04)
[2017-03-26] MEDS ORDERED: CYCL10TA2 PO (20:09)
== END 2017-03-26 20:19 | disposition home or self-care (01) ==
LOC: ER 19:23
DX: G89.29 Other chronic pain (principal); M54.42 Lumbago with sciatica, left side; E78.00 Pure hypercholesterolemia, unspecified; Z88.8 Allergy status to other drugs, medicaments and biological substances
CPT/HCPCS: 99283

== ENCOUNTER 2017-04-21 19:27 | Emergency (ER) | payer OTHER ==
[~2017-04-21] VITALS: Ht 165.1 cm; Wt 90.7 kg
[2017-04-21 19:59] VITALS: BP 124/78
--- NOTE | 2017-04-21 20:17 | PHYS DOC ---
Past Medical History Past Medical History: High Cholesterol Additional Past Medical Histor: HEART DISEASE, CHRONIC BACK PAIN Past Surgical History: Other Additional Past Surgical Histo: BACK Alcohol Use: Occasionally Drug Use: None Adult General Chief Complaint Chief Complaint: HYPERTENSION HPI HPI Patient is a 51 year old female presents to the emergency department with chronic headache. She also complains of diffuse back pain. Review of Systems Review of Systems Constitutional: Denies fever or chills Eyes: Denies change in visual acuity, redness, or eye pain HENT: Denies nasal congestion or sore throat Respiratory: Denies cough or shortness of breath Cardiovascular: No additional information not addressed in HPI GI: Denies abdominal pain, nausea, vomiting, bloody stools or diarrhea : Denies dysuria or hematuria Musculoskeletal:back pain Integument: Denies rash or skin lesions Neurologic: headache Endocrine: Denies polyuria or polydipsia Allergies Allergies Allergies Coded Allergies Type Severity Reaction Last Updated Verified acetaminophen Allergy Intermediate Rash 01/10/17 Yes ibuprofen Allergy Intermediate rash 09/19/16 No naproxen Allergy Intermediate rash 09/19/16 No Physical Exam Physical Exam Constitutional: Well developed, well nourished, no acute distress, non-toxic appearance. [] HENT: Normocephalic, atraumatic, bilateral external ears normal, oropharynx moist, no oral exudates, nose normal. [] Eyes: PERRLA, EOMI, conjunctiva normal, no discharge, funduscopic exam benign. [ ] Neck: Normal range of motion, no tenderness, supple, no stridor. [] Cardiovascular:Heart rate regular rhythm, no murmur [] Lungs & Thorax: Bilateral breath sounds clear to auscultation [] Abdomen: Bowel sounds normal, soft, no tenderness, no masses, no pulsatile masses. [] Skin: Warm, dry, no erythema, no rash. [] Back: No tenderness, no CVA tenderness. [] Extremities: No tenderness, no cyanosis, no clubbing, ROM intact, no edema. [] Neurologic: Alert and oriented X 3, normal motor function, normal sensory function, no focal deficits noted, cranial nerves II through XII are grossly intact. [] Psychologic: Affect normal, judgement normal, mood normal. [] Current Patient Data Vital Signs Vital Signs Date Time Temp Pulse Resp B/P (MAP) Pulse Ox O2 Delivery O2 Flow Rate FiO2 04/21/17 19:59 99.0 96 16 96 Room Air 99.0 EKG EKG [] Radiology/Procedures Radiology/Procedures [] Course & Med Decision Making Course & Med Decision Making Pertinent Labs and Imaging studies reviewed. (See chart for details) [] Patient is requesting a tramadol in the emergency department. I did advise her she would not be given a prescription for this medication for her chronic headaches. She verbalizes understanding and agreement with the plan. Dragon Disclaimer Dragon Disclaimer This electronic medical record was generated, in whole or in part, using a voice recognition dictation system. Departure Departure Referrals: MARITZA ALCARAZ MD (PCP) SAMREEN COVINGTON APRN Apr 21, 2017 20:17
[2017-04-21] MEDS ORDERED: CYCL10TA2 PO (20:22)
[2017-04-21] MEDS ORDERED: traMADol 50 MG TABLET PO ONE (20:30)
== END 2017-04-21 20:38 | disposition home or self-care (01) ==
LOC: ER 19:27
DX: G89.29 Other chronic pain (principal); R51 Headache; M54.9 Dorsalgia, unspecified; I10 Essential (primary) hypertension; E78.00 Pure hypercholesterolemia, unspecified; Z88.6 Allergy status to analgesic agent; Z88.8 Allergy status to other drugs, medicaments and biological substances
CPT/HCPCS: 99283

== ENCOUNTER 2017-04-26 20:56 | Emergency (ER) | payer OTHER ==
[~2017-04-26] VITALS: Ht 172.7 cm; Wt 99.8 kg
[2017-04-26 21:42] VITALS: BP 134/91
[2017-04-26] MEDS ORDERED: traMADol 50 MG TABLET PO ONE (21:45)
[2017-04-26] MEDS ORDERED: CYCL10TA2 PO (22:09)
--- NOTE | 2017-04-26 22:10 | PHYS DOC ---
Past Medical History Past Medical History: High Cholesterol Additional Past Medical Histor: HEART DISEASE, CHRONIC BACK PAIN Past Surgical History: Other Additional Past Surgical Histo: BACK Alcohol Use: Occasionally Drug Use: None Adult General Chief Complaint Chief Complaint: BACK PAIN OR INJURY HPI HPI Patient is a 51 year old female with history of high cholesterol and chronic back pain with bilateral sciatica who presents today with chronic back pain. Patient denies any trauma. Patient is also complaining of chronic pain radiating to bilateral lower extremities. Patient states she follows up at [facility] where she has a pain contract with the pain clinic. Review of Systems Review of Systems Constitutional: Denies fever or chills [] Eyes: Denies change in visual acuity, redness, or eye pain [] Musculoskeletal: back pain Integument: Denies rash or skin lesions [] Neurologic: Denies headache, focal weakness or sensory changes [] Endocrine: Denies polyuria or polydipsia [] Current Medications Current Medications Current Medications Medications (Trade) Dose Ordered Sig/Jayy Start Time Stop Time Status Last Admin Dose Admin Tramadol HCl (Ultram) 50 mg 1X ONCE 04/26/17 21:45 04/26/17 21:46 DC 04/26/17 22:03 50 MG Allergies Allergies Allergies Coded Allergies Type Severity Reaction Last Updated Verified acetaminophen Allergy Intermediate Rash 01/10/17 Yes ibuprofen Allergy Intermediate rash 09/19/16 No naproxen Allergy Intermediate rash 09/19/16 No Physical Exam Physical Exam Constitutional: Well developed, well nourished, no acute distress, non-toxic appearance. [] HENT: Normocephalic, atraumatic, bilateral external ears normal, oropharynx moist, no oral exudates, nose normal. [] Abdomen: Bowel sounds normal, soft, no tenderness, no masses, no pulsatile masses. [] Skin: Warm, dry, no erythema, no rash. [] Back: Diffuse paraspinal muscles tenderness to bilateral lumbar spine, no midline lumbar spine tenderness, no CVA tenderness. [] Extremities: No tenderness, no cyanosis, no clubbing, ROM intact, no edema. [] Neurologic: Alert and oriented X 3, normal motor function, normal sensory function, no focal deficits noted. [] Psychologic: Affect normal, judgement normal, mood normal. [] Current Patient Data Vital Signs Vital Signs Date Time Temp Pulse Resp B/P (MAP) Pulse Ox O2 Delivery O2 Flow Rate FiO2 04/26/17 22:03 99 Room Air 04/26/17 21:42 98.8 95 20 98.8 EKG EKG [] Radiology/Procedures Radiology/Procedures [] Course & Med Decision Making Course & Med Decision Making Pertinent Labs and Imaging studies reviewed. (See chart for details) Patient is in the ED with chronic low back pain. Informed her i will not give her prescription for Ultram. She'll be given a prescription for Flexeril. She has a pain contract with [facility] pain clinic [place] Disclaimer Dragon Disclaimer This electronic medical record was generated, in whole or in part, using a voice recognition dictation system. Departure Departure Impression: Primary Impression: Sciatic nerve pain Additional Impression: Chronic back pain Disposition: HOME, SELF-CARE Condition: STABLE Referrals: MARITZA ALCARAZ MD (PCP) Patient Instructions: Back Pain, Adult, Sciatica with Rehab-SportsMed Additional Instructions: You were seen for chronic back pain. Follow-up with your doctor at [facility]. Scripts Cyclobenzaprine Hcl (CYCLOBENZAPRINE HCL) 10 Mg Tablet 1 TAB PO TID, #30 TAB Prov: MEMO NELSON APRN 04/26/17 Problem Qualifiers Primary Impression: Sciatic nerve pain Laterality: right Qualified Codes: M54.31 - Sciatica, right side Additional Impression: Chronic back pain Back pain location: low back pain Back pain laterality: bilateral Sciatica presence: with sciatica Sciatica laterality: bilateral sciatica Qualified Codes: M54.42 - Lumbago with sciatica, left side; M54.41 - Lumbago with sciatica, right side; G89.29 - Other chronic pain MEMO NELSON APRN Apr 26, 2017 22:10
== END 2017-04-26 22:26 | disposition home or self-care (01) ==
LOC: ER 20:56
DX: M54.41 Lumbago with sciatica, right side (principal); G89.29 Other chronic pain; E78.00 Pure hypercholesterolemia, unspecified; Z88.8 Allergy status to other drugs, medicaments and biological substances; Z88.6 Allergy status to analgesic agent
CPT/HCPCS: 99283

== ENCOUNTER 2017-04-29 21:48 | Emergency (ER) | payer OTHER ==
[~2017-04-29] VITALS: Ht 165.1 cm; Wt 90.7 kg
[2017-04-29 22:45] LABS: BASO # 0.1 x10^3/uL (0.0-0.2); BASO % 1 % (0-3); EOS % 4 % (0-3); HEMATOCRIT 31.7 % (36.0-47.0); HEMOGLOBIN 10.5 g/dL (12.0-15.5); LYMPH # 2.7 x10^3/uL (1.0-4.8); LYMPH % 25 % (24-48); MEAN CORPUSCULAR HEMOGLOBIN 31 pg (25-35); MEAN CORPUSCULAR HGB CONC 33 g/dL (31-37); MEAN CORPUSCULAR VOLUME 94 fL (79-100); MONO % 9 % (0-9); NEUT % 63 % (31-73); PLATELET COUNT 379 x10^3/uL (140-400); RED BLOOD COUNT 3.38 x10^6/uL (3.50-5.40); RED CELL DISTRIBUTION WIDTH 15.7 % (11.5-14.5); WHITE BLOOD COUNT 11.1 x10^3/uL (4.0-11.0)
[2017-04-29 22:57] LABS: CALCIUM 8.8 mg/dL (8.5-10.1); GFR 58.5; POTASSIUM 3.9 mmol/L (3.5-5.1)
[2017-04-29] MEDS ORDERED: DIPHTH,PERTUSS(ACELL),TET TOX 0.5 ML DISP.SYRIN. VAX IM ONE (23:00)
[2017-04-29] MEDS ORDERED: IPRATRPIUM/ALBUTEROL 0.5/2.5MG 3 ML NEBU. NEB ONE (23:00)
[2017-04-29] MEDS ORDERED: HYDROmorphone 2 MG/ML VIAL IV ONE (23:00)
[2017-04-29] MEDS ORDERED: FUROSEMIDE 40 MG/4 ML VIAL. IVP ONE (23:00)
[2017-04-29] MEDS ORDERED: CEPHALEXIN 250 MG CAPSULE. PO ONE (23:00)
[2017-04-29 23:03] LABS: ALBUMIN 3.7 g/dL (3.4-5.0); TOTAL BILIRUBIN 0.4 mg/dL (0.2-1.0); TOTAL PROTEIN 7.4 g/dL (6.4-8.2)
[2017-04-29 23:18] LABS: BILIRUBIN,URINE NEGATIVE (NEG); GLUCOSE,URINE NEGATIVE (NEG); NITRITE,URINE NEGATIVE (NEG); PH,URINE 5.5; PROTEIN,URINE NEGATIVE (NEG-TRACE); UROBILINOGEN,URINE 0.2 mg/dL (0.2 mg/dL)
[2017-04-29 23:30] LABS: BACTERIA,URINE FEW /HPF (0-FEW); SQUAMOUS EPITHELIAL CELL,UR FEW /LPF
[2017-04-29 23:57] VITALS: BP 158/93
[2017-04-30] MEDS ORDERED: CEPH-264 PO
--- NOTE | 2017-04-30 | PHYS DOC ---
Past Medical History Past Medical History: High Cholesterol Additional Past Medical Histor: HEART DISEASE, CHRONIC BACK PAIN Past Surgical History: Other Additional Past Surgical Histo: BACK Alcohol Use: Occasionally Drug Use: None Adult General Chief Complaint Chief Complaint: FOOT INJURY PAIN HPI HPI Patient is a 51 year old female who presents to the ER today complaining of foot pain. Patient reports that she thinks shortness of glass earlier today while she was wearing her sandals. Patient also complaining of bilateral lower STEMI edema that is chronic. Patient has a history significant for asthma in the past is not complaining of any shortness of breath. Patient has any vomiting or fevers. Patient reports a nonproductive cough which is chronic. Patient complaining of chronic back pain. Patient denies any diarrhea dysuria frequency or urgency. Patient has no history of kidney problems heart disease hypertension coronary disease or diabetes. Patient portion does not drink but does smoke but does not do any drugs. Patient had a hysterectomy and is at back surgery in the past. Patient's physical exam is unremarkable. Patient does have soft tissue tenderness to palpation to the plantar aspect of her left foot. Patient's bipedal edema. Patient's lungs are clear without any wheezing rales or rhonchi. Patient's abdomen was soft nontender no rebound or guarding. Patient does have some mild tenderness palpation in her lower back. Assessment and plan this is a 51-year-old female with history significant for chronic pain and is currently on a pain contract. Patient's workup in ER has been unremarkable. Patient be discharged home with prescription for Keflex for possible foreign body to her foot. I do not feel that it would be prudent to dissect her foot at this time and I have instructed the patient to follow-up with a surgeon/security compliance engineer if she persists on having pain to her foot from a foreign body. Review of Systems Review of Systems Constitutional: Denies fever or chills [] Eyes: Denies change in visual acuity, redness, or eye pain [] All other review systems are negative except as documented in the history of present illness portion. Current Medications Current Medications Current Medications Medications (Trade) Dose Ordered Sig/Jayy Start Time Stop Time Status Last Admin Dose Admin Albuterol/ Ipratropium (Duoneb) 3 ml 1X ONCE 04/29/17 23:00 04/29/17 23:01 DC 04/29/17 22:46 3 ML Cephalexin HCl (Keflex) 500 mg 1X ONCE 04/29/17 23:00 04/29/17 23:01 DC 04/29/17 22:45 500 MG Diphtheria/ Tetanus/Acell Pertussis (Boostrix) 0.5 ml ONCE ONCE 04/29/17 23:00 04/29/17 23:01 DC 04/29/17 22:46 0.5 ML Furosemide (Lasix) 40 mg 1X ONCE 04/29/17 23:00 04/29/17 23:01 DC 04/29/17 22:44 40 MG Hydromorphone HCl (Dilaudid) 0.5 mg 1X ONCE 04/29/17 23:00 04/29/17 23:01 DC 04/29/17 22:45 0.5 MG Allergies Allergies Allergies Coded Allergies Type Severity Reaction Last Updated Verified acetaminophen Allergy Intermediate Rash 01/10/17 Yes ibuprofen Allergy Intermediate rash 09/19/16 No naproxen Allergy Intermediate rash 09/19/16 No Physical Exam Physical Exam Constitutional: Well developed, well nourished, no acute distress, non-toxic appearance. [] HENT: Normocephalic, atraumatic, bilateral external ears normal, oropharynx moist, no oral exudates, nose normal. [] Eyes: PERRLA, EOMI, conjunctiva normal, no discharge. [] Neck: Normal range of motion, no tenderness, supple, no stridor. [] Cardiovascular:Heart rate regular rhythm, no murmur [] Lungs & Thorax: Bilateral breath sounds clear to auscultation [] Abdomen: Bowel sounds normal, soft, no tenderness, no masses, no pulsatile masses. [] Skin: Warm, dry, no erythema, no rash. [] Back: No tenderness, no CVA tenderness. [] Extremities: No tenderness, no cyanosis, Neurologic: Alert and oriented X 3, normal motor function, normal sensory function, no focal deficits noted. [] Psychologic: Affect normal, judgement normal, mood normal. [] Current Patient Data Vital Signs Vital Signs Date Time Temp Pulse Resp B/P (MAP) Pulse Ox O2 Delivery O2 Flow Rate FiO2 04/29/17 23:57 88 18 158/93 (114) 93 Room Air 04/29/17 22:10 99.0 99.0 Lab Values Laboratory Tests Test 04/29/17 22:35 04/29/17 23:05 White Blood Count 11.1 x10^3/uL (4.0-11.0) H Red Blood Count 3.38 x10^6/uL (3.50-5.40) L Hemoglobin 10.5 g/dL (12.0-15.5) L Hematocrit 31.7 % (36.0-47.0) L Mean Corpuscular Volume 94 fL (79-100) Mean Corpuscular Hemoglobin 31 pg (25-35) Mean Corpuscular Hemoglobin Concent 33 g/dL (31-37) Red Cell Distribution Width 15.7 % (11.5-14.5) H Platelet Count 379 x10^3/uL (140-400) Neutrophils (%) (Auto) 63 % (31-73) Lymphocytes (%) (Auto) 25 % (24-48) Monocytes (%) (Auto) 9 % (0-9) Eosinophils (%) (Auto) 4 % (0-3) H Basophils (%) (Auto) 1 % (0-3) Neutrophils # (Auto) 6.9 x10^3uL (1.8-7.7) Lymphocytes # (Auto) 2.7 x10^3/uL (1.0-4.8) Monocytes # (Auto) 0.9 x10^3/uL (0.0-1.1) Eosinophils # (Auto) 0.4 x10^3/uL (0.0-0.7) Basophils # (Auto) 0.1 x10^3/uL (0.0-0.2) Sodium Level 137 mmol/L (136-145) Potassium Level 3.9 mmol/L (3.5-5.1) Chloride Level 100 mmol/L (98-107) Carbon Dioxide Level 26 mmol/L (21-32) Anion Gap 11 (6-14) Blood Urea Nitrogen 20 mg/dL (7-20) Creatinine 1.0 mg/dL (0.6-1.0) Estimated GFR (Cockcroft-Gault) 58.5 BUN/Creatinine Ratio 20 (6-20) Glucose Level 103 mg/dL (70-99) H Calcium Level 8.8 mg/dL (8.5-10.1) Total Bilirubin 0.4 mg/dL (0.2-1.0) Aspartate Amino Transferase (AST) 43 U/L (15-37) H Alanine Aminotransferase (ALT) 22 U/L (14-59) Alkaline Phosphatase 79 U/L (46-116) Troponin I Quantitative < 0.017 ng/mL (0.000-0.055) RT-Lnr-P-Type Natriuretic Peptide 73 pg/mL (0-124) Total Protein 7.4 g/dL (6.4-8.2) Albumin 3.7 g/dL (3.4-5.0) Albumin/Globulin Ratio 1.0 (1.0-1.7) Urine Collection Type Void Urine Color Yellow Urine Clarity Cloudy Urine pH 5.5 Urine Specific [place] 1.025 Urine Protein Negative mg/dL (NEG-TRACE) Urine Glucose (UA) Negative mg/dL (NEG) Urine Ketones (Stick) Negative mg/dL (NEG) Urine Blood Negative (NEG) Urine Nitrite Negative (NEG) Urine Bilirubin Negative (NEG) Urine Urobilinogen Dipstick 0.2 mg/dL (0.2 mg/dL) Urine Leukocyte Esterase Negative (NEG) Urine RBC 3-5 /HPF (0-2) Urine WBC 1-4 /HPF (0-4) Urine Squamous Epithelial Cells Few /LPF Urine Bacteria Few /HPF (0-FEW) Urine Hyaline Casts Moderate /HPF Urine Mucus Mod /LPF Laboratory Tests 04/29/17 22:35 Laboratory Tests 04/29/17 22:35 EKG EKG [] Radiology/Procedures Radiology/Procedures [] Course & Med Decision Making Course & Med Decision Making Pertinent Labs and Imaging studies reviewed. (See chart for details) [] Dragon Disclaimer Dragon Disclaimer This electronic medical record was generated, in whole or in part, using a voice recognition dictation system. Departure Departure Impression: Primary Impression: Chronic back pain Additional Impression: Foreign body in foot Disposition: 01 HOME, SELF-CARE Condition: STABLE Referrals: MARITZA ALCARAZ MD (PCP) Scripts Cephalexin (KEFLEX) 500 Mg Capsule 500 MG PO QID for 10 Days, CAP Prov: HARDEEP JUAN MD 04/30/17 Problem Qualifiers HARDEEP JUAN MD Apr 30, 2017 00:00
--- NOTE | 2017-04-30 08:23 | RAD ---
Indication swelling. AP oblique and lateral views of the left foot were obtained. No bony abnormality is seen
--- NOTE | 2017-04-30 08:30 | RAD ---
Indication swelling. Suspect congestive heart failure. PA and lateral views of the chest were obtained and are compared to a single view examination November 08, 2016. The heart and pulmonary vessels appear normal. The lungs are clear. There is no pleural fluid or pneumothorax. There has not been a significant change when compared to the previous exam. IMPRESSION: No acute or focal process. No significant change
== END 2017-04-30 00:15 | disposition home or self-care (01) ==
LOC: ER 21:48
DX: S90.852A Superficial foreign body, left foot, initial encounter (principal); G89.29 Other chronic pain; M54.9 Dorsalgia, unspecified; R60.0 Localized edema; R05 Cough; E78.00 Pure hypercholesterolemia, unspecified; J45.909 Unspecified asthma, uncomplicated; Z88.6 Allergy status to analgesic agent; Z88.8 Allergy status to other drugs, medicaments and biological substances; W45.8XXA Other foreign body or object entering through skin, initial encounter; Y93.89 Activity, other specified; Y92.89 Other specified places as the place of occurrence of the external cause; Y99.8 Other external cause status
CPT/HCPCS: 36415; 71020; 73630; 80053; 81001; 83880; 84484; 85027; 90471; 90715; 94250; 94640; 96374; 96375; 99285; J1170; J1940; J7620

== ENCOUNTER 2017-04-30 22:18 | Emergency (ER) | payer OTHER ==
[~2017-04-30] VITALS: Ht 162.6 cm; Wt 90.7 kg
[~2017-04-30 22:18] MED LIST changes: +CEPH-264 PO
[2017-04-30 22:59] VITALS: BP 144/79
--- NOTE | 2017-04-30 23:07 | PHYS DOC ---
Past Medical History Past Medical History: High Cholesterol Additional Past Medical Histor: HEART DISEASE, CHRONIC BACK PAIN Past Surgical History: Other Additional Past Surgical Histo: BACK Alcohol Use: Occasionally Drug Use: None Adult General Chief Complaint Chief Complaint: LOWER EXTREMITY SWELLING HPI HPI Patient is a 51 year old female who was seen and evaluated by me yesterday presents here today because she feels like she has a foreign body in her left foot. Patient was seen here yesterday for a similar complaint. Patient x-ray yesterday of her left foot which revealed no foreign body. 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 Patient was started on antibiotics yesterday to prevent the possibility of infection in case there was an occult foreign body in her foot. Patient reports never she walks she has pain to that area. Patient denies any redness or erythema to that area. Patient reports that she has pain in her back. She has difficulty walking secondary to the pain in her foot. Patient denies any other symptomatology at this time. Patient has any fevers shakes chills nausea vomiting diarrhea chest pain short of breath cough cold or runny nose. Patient's physical exam is significant for a small excoriated area to the plantar aspect of her left foot in the heel. There is no erythema there is no warmth or purulence there is no palpable mass. Assessment and plan is a 51-year-old female who presents here today with pain to her left foot secondary to a possible foreign body. I discussed with the patient the possibility of an occult foreign body there. Her x-ray yesterday did not reveal any foreign body. I discussed with her and her that she will need to follow-up with her primary care physician to get a referral to see a living specialist in order to investigate the possibility of a foreign body there. I also discussed with the at the pain could be likely secondary to a blister formation that area too. That is not necessarily a foreign body in there although I cannot exclude that definitely at this time. Patient be discharged home is to continue her Keflex and will take ibuprofen as needed for pain. Review of Systems Review of Systems Constitutional: Denies fever or chills [] Eyes: Denies change in visual acuity, redness, or eye pain [] HENT: Denies nasal congestion or sore throat [] All other review systems are negative except as documented in the history of present illness portion. Current Medications Current Medications Current Medications Medications (Trade) Dose Ordered Sig/Jayy Start Time Stop Time Status Last Admin Dose Admin Ibuprofen (Motrin) 600 mg 1X ONCE 04/30/17 23:30 04/30/17 23:30 DC 04/30/17 23:10 600 MG Allergies Allergies Allergies Coded Allergies Type Severity Reaction Last Updated Verified acetaminophen Allergy Intermediate Rash 01/10/17 Yes ibuprofen Allergy Intermediate rash 09/19/16 No naproxen Allergy Intermediate rash 09/19/16 No Physical Exam Physical Exam Constitutional: Well developed, well nourished, no acute distress, non-toxic appearance. [] HENT: Normocephalic, atraumatic, bilateral external ears normal, oropharynx moist, no oral exudates, nose normal. [] Eyes: PERRLA, EOMI, conjunctiva normal, no discharge. [] Neck: Normal range of motion, no tenderness, supple, no stridor. [] Cardiovascular:Heart rate regular rhythm Lungs & Thorax: Bilateral breath sounds clear to auscultation [] Abdomen: Bowel sounds normal, soft, no tenderness, no masses, no pulsatile masses. [] Skin: Warm, dry, no erythema, no rash. [] Back: No tenderness, no CVA tenderness. [] Extremities: See above. Neurologic: Alert and oriented X 3, normal motor function, normal sensory function, no focal deficits noted. [] Psychologic: Affect normal, judgement normal, mood normal. [] Current Patient Data Vital Signs Vital Signs Date Time Temp Pulse Resp B/P (MAP) Pulse Ox O2 Delivery O2 Flow Rate FiO2 04/30/17 22:59 98.8 111 16 144/79 (100) 94 Room Air 98.8 EKG EKG [] Radiology/Procedures Radiology/Procedures [] X-ray from yesterday reviewed no foreign body. Course & Med Decision Making Course & Med Decision Making Pertinent Labs and Imaging studies reviewed. (See chart for details) [] Dragon Disclaimer Dragon Disclaimer This electronic medical record was generated, in whole or in part, using a voice recognition dictation system. Departure Departure Impression: Primary Impression: Pain in left foot Disposition: 01 HOME, SELF-CARE Condition: STABLE Referrals: MARITZA ALCARAZ MD (PCP) Patient Instructions: Wound Care, [id number] Additional Instructions: 1. Take ibuprofen or Tylenol as needed for pain. 2. Follow-up with her doctor for referral to see a living specialist in order to investigate the possibility of a foreign body. 3. Continue the Keflex that was prescribed for yesterday to prevent an infection that might occur in case there is a foreign body in her foot. HARDEEP JUAN MD Apr 30, 2017 23:07
[2017-04-30] MEDS ORDERED: IBUPROFEN 600 MG TABLET. PO ONE (23:30)
== END 2017-04-30 23:11 | disposition home or self-care (01) ==
LOC: ER 22:18
DX: M79.672 Pain in left foot (principal); M54.9 Dorsalgia, unspecified; R26.2 Difficulty in walking, not elsewhere classified; E78.00 Pure hypercholesterolemia, unspecified; G89.29 Other chronic pain; Z88.6 Allergy status to analgesic agent; Z88.8 Allergy status to other drugs, medicaments and biological substances
CPT/HCPCS: 99282

== ENCOUNTER 2017-05-07 21:37 | Emergency (ER) | payer OTHER ==
[~2017-05-07] VITALS: Ht 165.1 cm; Wt 90.7 kg
[2017-05-07 21:40] VITALS: BP 112/65
[2017-05-07] MEDS ORDERED: traMADol 50 MG TABLET PO ONE (22:30)
[2017-05-07] MEDS ORDERED: CYCLOBENZAPRINE 10 MG TABLET. PO ONE (22:30)
--- NOTE | 2017-05-08 05:43 | ED.ADGEN ---
Past Medical History Past Medical History: High Cholesterol Additional Past Medical Histor: HEART DISEASE, CHRONIC BACK PAIN Past Surgical History: Other Additional Past Surgical Histo: BACK Alcohol Use: Occasionally Drug Use: None Adult General Chief Complaint Chief Complaint: MECHANICAL FALL HPI HPI Patient is a 51 year old female well-known to this institution who presents with right knee abrasion after tripping and landing on right knee. Patient weight bears without difficulty. Superficial facial prepatellar abrasions noted. No other symptoms or complaints. Review of Systems Review of Systems Review symptoms as per history of present illness. Current Medications Current Medications Current Medications Medications (Trade) Dose Ordered Sig/Jayy Start Time Stop Time Status Last Admin Dose Admin Cyclobenzaprine HCl (Flexeril) 10 mg 1X ONCE 05/07/17 22:30 05/07/17 22:31 DC 05/07/17 21:59 10 MG Tramadol HCl (Ultram) 50 mg 1X ONCE 05/07/17 22:30 05/07/17 22:31 DC 05/07/17 21:59 50 MG Allergies Allergies Allergies Coded Allergies Type Severity Reaction Last Updated Verified acetaminophen Allergy Intermediate Rash 01/10/17 Yes ibuprofen Allergy Intermediate rash 09/19/16 No naproxen Allergy Intermediate rash 09/19/16 No Physical Exam Physical Exam Constitutional: Well developed, well nourished, no acute distress, non-toxic appearance. [] HENT: Normocephalic, atraumatic, bilateral external ears normal, oropharynx moist, no oral exudates, nose normal. [] Extremities: Superficial abrasion right knee. No deformity, bony tenderness or pain range of motion testing. Neurologic: Alert and oriented, normal motor function, normal sensory function, no focal deficits noted. [] Psychologic: Affect normal, judgement normal, mood normal. [] Current Patient Data Vital Signs Vital Signs Date Time Temp Pulse Resp B/P (MAP) Pulse Ox O2 Delivery O2 Flow Rate FiO2 05/07/17 21:40 98.2 98 16 100 Room Air 98.2 EKG EKG [] Radiology/Procedures Radiology/Procedures [] Course & Med Decision Making Course & Med Decision Making Pertinent Labs and Imaging studies reviewed. (See chart for details) [] Dragon Disclaimer Dragon Disclaimer This electronic medical record was generated, in whole or in part, using a voice recognition dictation system. GREG OMALLEY DO May 08, 2017 05:43
== END 2017-05-07 22:00 | disposition home or self-care (01) ==
LOC: ER 21:37
DX: S80.211A Abrasion, right knee, initial encounter (principal); E78.00 Pure hypercholesterolemia, unspecified; G89.29 Other chronic pain; Z88.6 Allergy status to analgesic agent; Z88.8 Allergy status to other drugs, medicaments and biological substances; W18.40XA Slipping, tripping and stumbling without falling, unspecified, initial encounter; Y93.89 Activity, other specified; Y92.89 Other specified places as the place of occurrence of the external cause; Y99.8 Other external cause status
CPT/HCPCS: 99283

== ENCOUNTER 2017-05-11 20:28 | Emergency (ER) | payer OTHER ==
[2017-05-11 20:51] VITALS: BP 112/65
[2017-05-11] MEDS ORDERED: traMADol 50 MG TABLET PO ONE ×2 (21:30)
[2017-05-11] MEDS ORDERED: CYCLOBENZAPRINE 10 MG TABLET. PO ONE (21:30)
[2017-05-11] MEDS ORDERED: CYCL10TA2 PO (21:53)
--- NOTE | 2017-05-11 21:53 | PHYS DOC ---
Past Medical History Past Medical History: High Cholesterol Additional Past Medical Histor: HEART DISEASE, CHRONIC BACK PAIN Past Surgical History: Other Additional Past Surgical Histo: BACK Additional Information: 4 CIGS/DAY Alcohol Use: None Drug Use: None Adult General Chief Complaint Chief Complaint: BACK PAIN OR INJURY HPI HPI Patient is a 51 year old female with history of chronic back pain who presents today complaining of chronic back pain and anterior right knee pain that began 4 days ago after she fell on her knee. She states she was already evaluated in the ED for the knee pain, 4 days ago. She would like something for pain. Patient denies any loss of bowel bladder function. She follows up with [facility] pain clinic. Review of Systems Review of Systems Constitutional: Denies fever or chills [] Eyes: Denies change in visual acuity, redness, or eye pain [] Musculoskeletal: Chronic low back pain and right knee pain] Integument: Denies rash or skin lesions [] Neurologic: Denies headache, focal weakness or sensory changes [] Endocrine: Denies polyuria or polydipsia [] Current Medications Current Medications Current Medications Medications (Trade) Dose Ordered Sig/Jayy Start Time Stop Time Status Last Admin Dose Admin Cyclobenzaprine HCl (Flexeril) 10 mg 1X ONCE 05/11/17 21:30 05/11/17 21:31 DC 05/11/17 21:06 10 MG Tramadol HCl (Ultram) 50 mg 1X ONCE 05/11/17 21:30 05/11/17 21:31 DC 05/11/17 21:06 50 MG Allergies Allergies Allergies Coded Allergies Type Severity Reaction Last Updated Verified acetaminophen Allergy Intermediate Rash 01/10/17 Yes ibuprofen Allergy Intermediate rash 09/19/16 No naproxen Allergy Intermediate rash 09/19/16 No Physical Exam Physical Exam Constitutional: Well developed, well nourished, no acute distress, non-toxic appearance. [] Abdomen: Bowel sounds normal, soft, no tenderness, no masses, no pulsatile masses. [] Skin: Warm, dry, no erythema, no rash. [] Back: Diffuse paraspinal muscle tenderness to bilateral lumbar spine, no midline lumbar spine tenderness, no CVA tenderness. [] Extremities: Right knee with small amount of abrasions on the patella. Tenderness diffusely on the anterior aspect of the knee. Patient able to stretch her knee out and hold it with no difficulties. Full range of motion to the right knee including negative Kenrick sign and negative Gunnar's sign, negative anterior-posterior drawer sign to the right knee. +2 right pedal pulse. Cap refill less than 2 seconds the right toes. Sensation intact to the right lower extremity. Neurologic: Alert and oriented X 3, normal motor function, normal sensory function, no focal deficits noted. [] Psychologic: Affect normal, judgement normal, mood normal. [] Current Patient Data Vital Signs Vital Signs Date Time Temp Pulse Resp B/P (MAP) Pulse Ox O2 Delivery O2 Flow Rate FiO2 05/11/17 21:06 18 97 Room Air 05/11/17 20:51 98.0 95 98.0 EKG EKG [] Radiology/Procedures Radiology/Procedures [] Course & Med Decision Making Course & Med Decision Making Pertinent Labs and Imaging studies reviewed. (See chart for details) Patient is in the ED with chronic low back pain and right knee pain after falling 4 days ago. She was already evaluated for the knee pain 4 days ago. She is requesting something for pain. She was given Ultram and Flexeril in the ED and discharged. She is well known to this ED for chronic pain complaints especially low back pain. Dragon Disclaimer Dragon Disclaimer This electronic medical record was generated, in whole or in part, using a voice recognition dictation system. Departure Departure Impression: Primary Impression: Chronic low back pain Additional Impressions: Fall from standing Contusion of right knee Disposition: 01 HOME, SELF-CARE Condition: STABLE Referrals: MARITZA ALCARAZ MD (PCP) Follow-up with your doctor in one week Patient Instructions: Back Pain, Adult, [id number], Contusion Additional Instructions: You were seen for chronic low back pain and right knee contusion. Follow-up with your doctor as soon as possible. Scripts Cyclobenzaprine Hcl (CYCLOBENZAPRINE HCL) 10 Mg Tablet 1 TAB PO TID, #30 TAB Prov: MEMO NELSON APRN 05/11/17 Problem Qualifiers Primary Impression: Chronic low back pain Back pain laterality: bilateral Sciatica presence: with sciatica Sciatica laterality: bilateral sciatica Qualified Codes: M54.42 - Lumbago with sciatica, left side; M54.41 - Lumbago with sciatica, right side; G89.29 - Other chronic pain Additional Impressions: Fall from standing Encounter type: sequela Qualified Codes: W19.XXXS - Unspecified fall, sequela Contusion of right knee Encounter type: subsequent encounter Qualified Codes: S80.01XD - Contusion of right knee, subsequent encounter MEMO NELSON FINISHING MACHINE OPERATOR May 11, 2017 21:53
== END 2017-05-11 21:58 | disposition home or self-care (01) ==
LOC: ER 20:28
DX: S80.01XD Contusion of right knee, subsequent encounter (principal); M54.42 Lumbago with sciatica, left side; G89.29 Other chronic pain; E78.00 Pure hypercholesterolemia, unspecified; F17.210 Nicotine dependence, cigarettes, uncomplicated; Z88.6 Allergy status to analgesic agent; W18.39XA Other fall on same level, initial encounter; Y93.89 Activity, other specified; Y99.8 Other external cause status; Y92.89 Other specified places as the place of occurrence of the external cause
CPT/HCPCS: 99284

== ENCOUNTER 2017-06-12 12:11 | Emergency (ER) | payer OTHER ==
[~2017-06-12] VITALS: Ht 167.6 cm; Wt 95.3 kg
[2017-06-12 13:00] VITALS: BP 104/58
[2017-06-12] MEDS ORDERED: traMADol 50 MG TABLET PO ONE (13:30)
[2017-06-12] MEDS ORDERED: CLINDAMYCIN HCL 150 MG CAPSULE. PO ONE (13:30)
[2017-06-12] MEDS ORDERED: CLIN150C14 PO (13:34)
--- NOTE | 2017-06-12 13:35 | PHYS DOC ---
Past Medical History Past Medical History: High Cholesterol Additional Past Medical Histor: HEART DISEASE, CHRONIC BACK PAIN Past Surgical History: Other Additional Past Surgical Histo: BACK Alcohol Use: None Drug Use: None Adult General Chief Complaint Chief Complaint: SKIN PROBLEM HPI HPI Patient is a 51 year old female with history of high cholesterol, chronic back pain, who presents today complaining of skin infection to the right lower extremity for 4 days. Patient states she was admitted at [email or web address] for IV antibiotics for 2 days, she states she signed out AMA because she did not like sharing her room with other patients that have a cancer that were roomed with her. Patient denies any fever. She is requesting antibiotics prescription and to be discharged. She is also asking for Ultram for pain for home use. Informed her I will not send her home with any Ultram. She is in the ED with the and daughter who are interpreting. She also speaks fairly good Urdu. Review of Systems Review of Systems Constitutional: Denies fever or chills [] Musculoskeletal: Denies back pain or joint pain [] Integument: Right lower extremity skin infection Neurologic: Denies headache, focal weakness or sensory changes [] Current Medications Current Medications Current Medications Medications (Trade) Dose Ordered Sig/Jayy Start Time Stop Time Status Last Admin Dose Admin Clindamycin HCl (Cleocin) 450 mg 1X ONCE 06/12/17 13:30 06/12/17 13:37 DC 06/12/17 13:50 450 MG Oxycodone/ Acetaminophen (Percocet 5/325) 1 tab 1X ONCE 06/12/17 13:45 06/12/17 13:46 DC 06/12/17 13:51 1 TAB Tramadol HCl (Ultram) 50 mg 1X ONCE 06/12/17 13:30 06/12/17 13:31 UNV Allergies Allergies Allergies Coded Allergies Type Severity Reaction Last Updated Verified ibuprofen Allergy Intermediate rash 09/19/16 No naproxen Allergy Intermediate rash 09/19/16 No Physical Exam Physical Exam Constitutional: Well developed, well nourished, no acute distress, non-toxic appearance. [] Skin: Right sal[place]ar with mild to moderate cellulitis, the affected area feels warm. +1 right pedal edema. Negative Homans sign to the right lower extremity. Back: No tenderness, no CVA tenderness. [] Extremities: No tenderness, no cyanosis, no clubbing, ROM intact, no edema. [] Neurologic: Alert and oriented X 3, normal motor function, normal sensory function, no focal deficits noted. [] Psychologic: Affect normal, judgement normal, mood normal. [] Current Patient Data Vital Signs Vital Signs Date Time Temp Pulse Resp B/P (MAP) Pulse Ox O2 Delivery O2 Flow Rate FiO2 06/12/17 13:00 98.9 102 18 98 Room Air 98.9 EKG EKG [] Radiology/Procedures Radiology/Procedures [] Course & Med Decision Making Course & Med Decision Making Pertinent Labs and Imaging studies reviewed. (See chart for details) Patient has cellulitis to the right lower extremity, she was admitted at [facility] [[email or web address] and signed out AMA yesterday. I have encouraged her to be admitted today, she has declined. She is requesting oral antibiotics and to be discharged. Her tetanus is up-to-date. She was given clindamycin in the ED and discharged with clindamycin for 10 days. She wanted Ultram for home use. Informed patient I will not give her any pain medicine for home use. She was encouraged to return to the ED at any point her symptoms worsen or she is willing to be admitted. Dragon Disclaimer Dragon Disclaimer This electronic medical record was generated, in whole or in part, using a voice recognition dictation system. Departure Departure Impression: Primary Impression: Cellulitis of right lower extremity Disposition: 01 HOME, SELF-CARE Condition: STABLE Referrals: MARITZA ALCARAZ MD (PCP) follow up with your doctor next week Patient Instructions: Cellulitis Additional Instructions: You were seen for cellulitis of the right lower extremity. We offered admission today and he declined. Ensure you complete your oral antibiotics. Try and elevate the affected extremity. Follow-up with your doctor in the course of next week. Come back to the ED at any point symptoms worsen or you decided you can be admitted. Scripts Clindamycin Hcl (CLINDAMYCIN HCL) 150 Mg Capsule 3 CAP PO QID, #90 CAP Prov: MEMO NELSON APRN 06/12/17 MEMO NELSON APRN Jun 12, 2017 13:35
[2017-06-12] MEDS ORDERED: oxyCODONE/APAP 5/325 1 TAB TABLET PO ONE (13:45)
[2017-06-12] MEDS ORDERED: PROAIR RESPICL90 MCG IH (22:53)
[2017-06-12] MEDS ORDERED: GABA-585 PO (22:55)
[2017-06-15] MEDS ORDERED: CEPH250C PO (08:49)
[2017-06-15] MEDS ORDERED: OXYC1TAB7 PO (08:49)
== END 2017-06-12 13:53 | disposition home or self-care (01) ==
LOC: ER 12:11
DX: L03.115 Cellulitis of right lower limb (principal); E78.00 Pure hypercholesterolemia, unspecified; G89.29 Other chronic pain; I51.9 Heart disease, unspecified; Z88.6 Allergy status to analgesic agent; Z88.8 Allergy status to other drugs, medicaments and biological substances
CPT/HCPCS: 99283

== ENCOUNTER 2017-06-21 17:36 | Emergency (ER) | payer OTHER ==
[~2017-06-21 17:36] MED LIST changes: +CEPH250C PO; +OXYC1TAB7 PO
--- NOTE | 2017-06-21 18:11 | PHYS DOC ---
Past Medical History Past Medical History: High Cholesterol Additional Past Medical Histor: HEART DISEASE, CHRONIC BACK PAIN Past Surgical History: Other Additional Past Surgical Histo: BACK Alcohol Use: None Drug Use: None Adult General Chief Complaint Chief Complaint: LOWER EXTREMITY SWELLING HPI HPI 51-year-old female with a history of high blood pressure and chronic back pain presenting to the emergency department today with bilateral leg swelling over the past week. She reports being recently treated for cellulitis. She has pain in her legs that is sharp moderate intermittent and without alleviating factors. She denies shortness of breath. Review of systems is negative for fevers chills cough shortness of breath exertional dyspnea or headache. All other review of systems is negative unless otherwise noted in history of present illness. ED course: 51-year-old female with chronic low back pain and recent cellulitis presenting to the emergency department today with bilateral leg swelling. Patient was hypertensive in the emergency department which is a chronic condition for the patient. Pertinent physical exam findings showed 2+ edema bilaterally. Otherwise no crackles on pulmonary auscultation. No evidence of JVD. The remainder the examination is unremarkable including a soft nontender abdomen. Ultrasound of left leg obtained which was negative for DVT. Patient had previous ultrasound on the second of this month of the right ultrasound which was negative. Patient has pedal edema. I prescribed the patient a low- dose Lasix to follow-up with her doctor in the next 3-4 days. The patient was then discharged home in stable condition to follow up with their primary care physician over the next 2-3 days. They were to return if their symptoms worsened or if they were concerned for any reason. [id number] discharge instructions and return precautions were given. Patient's questions were answered to their satisfaction. Patient is comfortable plan. Review of Systems Review of Systems SEE ABOVE. Current Medications Current Medications Current Medications Medications (Trade) Dose Ordered Sig/[facility] Start Time Stop Time Status Last Admin Dose Admin Acetaminophen (Tylenol) 650 mg 1X ONCE 06/21/17 18:15 06/21/17 18:16 DC 06/21/17 18:52 650 MG Furosemide (Lasix) 40 mg 1X ONCE 06/21/17 18:15 06/21/17 18:16 DC 06/21/17 18:52 40 MG Allergies Allergies Allergies Coded Allergies Type Severity Reaction Last Updated Verified ibuprofen Allergy Intermediate rash 09/19/16 No naproxen Allergy Intermediate rash 09/19/16 No Physical Exam Physical Exam SEE ABOVE Constitutional: Well developed, well nourished, no acute distress, non-toxic appearance. HENT: Normocephalic, atraumatic, bilateral external ears normal, oropharynx moist, no oral exudates, nose normal. [] Eyes: PERRLA, EOMI, conjunctiva normal, no discharge. Neck: Normal range of motion, no tenderness, supple, no stridor. [] Cardiovascular:Heart rate regular rhythm, no murmur Lungs & Thorax: Bilateral breath sounds clear to auscultation [] Abdomen: Bowel sounds normal, soft, no tenderness, no masses, no pulsatile masses. Skin: Warm, dry, no erythema, no rash. [] Back: No tenderness, no CVA tenderness. [] Extremities: 3+ edema. Palpable pulse. 2 second cap refill. Normal neurovascular status. Neurologic: Alert and oriented X 3, normal motor function, normal sensory function, no focal deficits noted. Psychologic: Affect normal, judgement normal, mood normal. [] Current Patient Data Vital Signs Vital Signs Date Time Temp Pulse Resp B/P (MAP) Pulse Ox O2 Delivery O2 Flow Rate FiO2 06/21/17 17:57 99.3 101 33 135/88 (104) 96 Room Air 99.3 EKG EKG [] Radiology/Procedures Radiology/Procedures [] Course & Med Decision Making Course & Med Decision Making Pertinent Labs and Imaging studies reviewed. (See chart for details) [] Dragon Disclaimer Dragon Disclaimer This electronic medical record was generated, in whole or in part, using a voice recognition dictation system. Departure Departure Impression: Primary Impression: Pedal edema Disposition: 01 HOME, SELF-CARE Condition: STABLE Referrals: UNKNOWN PCP NAME (PCP) Patient Instructions: Peripheral Edema Additional Instructions: Thank you for allowing us to participate in your care today. Followup with your primary care physician in 3 days if your symptoms do not improve. Call your Primary Doctor tomorrow and inform them of your visit today. If you do not have a primary care provider you can ask for a list of our primary care providers. Return to the emergency department you have any new or concerning findings. This should be evaluated by the primary care physician and any necessary consulting services for continued management within a few days after discharge. Return to emergency room if you have any new or concerning symptoms including but not limited to fever, chills, nausea, vomiting, intractable pain, any new rashes, chest pain, shortness of air, uncontrolled bleeding, difficulty breathing, and/or vision loss. Scripts Furosemide (LASIX) 20 Mg Tablet 1 TAB PO DAILY, #10 TAB 0 Refills Prov: HANNAH ORTIZ MD 06/21/17 HANNAH ORTIZ MD Jun 21, 2017 18:10
[2017-06-21] MEDS ORDERED: FUROSEMIDE 40 MG TABLET. PO ONE (18:15)
[2017-06-21] MEDS ORDERED: ACETAMINOPHEN 325 MG TABLET. PO ONE (18:15)
--- NOTE | 2017-06-21 19:09 | RAD ---
Left lower extremity venous duplex study 06/21/2017 Clinical History: Left leg swelling. Technique: Using a combination of real time ultrasound imaging and color-flow and pulse Doppler imaging techniques along with graded compression and augmentation, duplex evaluation of the deep venous system of the left lower extremity was performed. Multiple images were obtained. Findings: There is no sonographic evidence of deep venous thrombosis involving the visualized deep venous structures of left lower extremity. Impression: Negative study. Electronically signed by: Lopez Sims MD (06/21/2017 7:06 PM) [facility]
[2017-06-21] MEDS ORDERED: FURO-69 PO (19:21)
[2017-06-21 19:25] VITALS: BP 134/66
[2017-06-24] MEDS ORDERED: CEFP200T PO (12:51)
[2017-06-24] MEDS ORDERED: FLUC100T PO (12:51)
== END 2017-06-21 19:36 | disposition home or self-care (01) ==
LOC: ER 17:36
DX: R60.1 Generalized edema (principal); M54.5 Low back pain; G89.29 Other chronic pain; E78.00 Pure hypercholesterolemia, unspecified; Z88.6 Allergy status to analgesic agent
CPT/HCPCS: 93971; 99284-25

== ENCOUNTER 2017-07-04 15:32 | Emergency (ER) | payer OTHER ==
[~2017-07-04 15:32] MED LIST changes: +CEFP200T PO; +FLUC100T PO; +FURO-69 PO
[2017-07-04 15:48] VITALS: BP 117/64
[2017-07-04] MEDS ORDERED: FAMOTIDINE 20 MG TABLET. PO ONE (17:00)
[2017-07-04] MEDS ORDERED: MORPHINE SULFATE 10 MG/ML VIAL. IM ONE (17:00)
[2017-07-04] MEDS ORDERED: ONDANSETRON ODT 4 MG TAB.RAPDIS. PO ONE (17:00)
[2017-07-04] MEDS ORDERED: FAMO-63 PO (17:12)
[2017-07-04] MEDS ORDERED: ONDA4TAB10 SL (17:12)
--- NOTE | 2017-07-04 17:12 | PHYS DOC ---
Past Medical History Past Medical History: High Cholesterol Additional Past Medical Histor: HEART DISEASE, CHRONIC BACK PAIN Past Surgical History: Other Additional Past Surgical Histo: BACK Alcohol Use: None Drug Use: None Adult General Chief Complaint Chief Complaint: LOWER BACK PAIN OR INJURY [facility] HPI Patient is a 51 year old female who presents with primary complaint of low back pain. Patient suffers from chronic back pain and has had multiple visits to the emergency department here [facility] for similar complaints. Patient states that she currently goes to [facility] to their pain management clinic and also follows with her primary doctor at [facility]. Patient states that she is currently not on pain medications at home. Patient states that she had been lifting heavy boxes 3 days ago prior to onset of symptoms. The patient also states that she has been having epigastric abdominal discomfort. Patient states however her back symptoms are more concerning for her at this time than her abdomen. Patient has had occasional vomiting but has had no vomiting currently in the emergency department. Patient denies any fevers. Patient denies any loss of bowel or bladder control, saddle anesthesia, or foot drop associated with symptoms. Patient states that the pain in her low back is 10 out of 10. Patient has not used any medications Review of Systems Review of Systems Constitutional: Denies fever or chills [] Eyes: Denies change in visual acuity, redness, or eye pain [] HENT: Denies nasal congestion or sore throat [] Respiratory: Denies cough or shortness of breath [] Cardiovascular: No additional information not addressed in HPI [] GI: Denies abdominal pain, nausea, vomiting, bloody stools or diarrhea [] : Denies dysuria or hematuria [] Musculoskeletal: Denies back pain or joint pain [] Integument: Denies rash or skin lesions [] Neurologic: Denies headache, focal weakness or sensory changes [] Endocrine: Denies polyuria or polydipsia [] Current Medications Current Medications Current Medications Medications (Trade) Dose Ordered Sig/Jayy Start Time Stop Time Status Last Admin Dose Admin Famotidine (Pepcid) 20 mg 1X ONCE 07/04/17 17:00 07/04/17 17:01 DC 07/04/17 17:29 20 MG Morphine Sulfate 5 mg 1X ONCE 07/04/17 17:00 07/04/17 17:01 DC 07/04/17 17:30 5 MG Ondansetron HCl (Zofran Odt) 4 mg 1X ONCE 07/04/17 17:00 07/04/17 17:01 DC 07/04/17 17:29 4 MG Allergies Allergies Allergies Coded Allergies Type Severity Reaction Last Updated Verified acetaminophen Allergy Intermediate NAUSEA/VOMITING 06/23/17 Yes ibuprofen Allergy Intermediate rash 06/23/17 Yes naproxen Allergy Intermediate rash 06/23/17 Yes Physical Exam Physical Exam Constitutional: Alert, afebrile, appears in no acute distress. [] HENT: Normocephalic, atraumatic, bilateral external ears normal, oropharynx moist, no oral exudates, nose normal. [] Eyes: PERRLA, EOMI, conjunctiva normal, no discharge. [] Neck: Normal range of motion, no tenderness, supple, no stridor. [] Cardiovascular:Heart rate regular rhythm, no murmur [] Lungs & Thorax: Bilateral breath sounds clear to auscultation [] Abdomen: Bowel sounds normal, soft, minimal epigastric tenderness to palpation with no guarding or rebound tenderness, no masses, no pulsatile masses. [] Skin: Warm, dry, no erythema, no rash. [] Back: No midline tenderness, bilateral lower lumbar paraspinous muscle tenderness palpation, no CVA tenderness. [] Extremities: No tenderness, no cyanosis, no clubbing, ROM intact, no edema. [] Neurologic: Alert and oriented X 3, normal motor function, normal sensory function, no focal deficits noted. [] Current Patient Data Vital Signs Vital Signs Date Time Temp Pulse Resp B/P (MAP) Pulse Ox O2 Delivery O2 Flow Rate FiO2 07/04/17 17:30 20 97 Room Air 07/04/17 15:48 98.0 95 98.0 EKG EKG Not performed[] Radiology/Procedures Radiology/Procedures Not performed[] Course & Med Decision Making Course & Med Decision Making Pertinent Labs and Imaging studies reviewed. (See chart for details) Patient was given oral Zofran, Pepcid, and 1 IM dose of morphine in the emergency department with improvement in pain symptoms. Patient ambulatory without difficulty in the emergency department. The patient's abdominal complaints are likely due to dyspepsia though close follow-up is recommended at this time. The patient was advised follow-up with her primary doctor in the next 1-2 days for reevaluation and discussion of further outpatient pain management. Advised return emergency department for any worsening symptoms. Patient was understanding and in agreement with treatment plan. Dragon Disclaimer Dragon Disclaimer This electronic medical record was generated, in whole or in part, using a voice recognition dictation system. Departure Departure Impression: Primary Impression: Chronic back pain Additional Impression: Dyspepsia Disposition: 01 HOME, SELF-CARE Condition: IMPROVED Referrals: UNKNOWN PCP NAME (PCP) Patient Instructions: Chronic Back Pain Additional Instructions: Follow-up with your primary doctor in the next 2-3 days. Return to the emergency department for any worsening symptoms. Scripts Famotidine (PEPCID) 20 Mg Tablet 20 MG PO BID, #30 TAB Prov: RUFUS SARMIENTO MD 07/04/17 Ondansetron (ZOFRAN ODT) 4 Mg Tab.rapdis 1 TAB SL Q8HRS Y for NAUSEA/VOMITING, #15 TAB Prov: RUFUS SARMIENTO MD 07/04/17 Problem Qualifiers Primary Impression: Chronic back pain Back pain location: low back pain Back pain laterality: bilateral Sciatica presence: without sciatica Qualified Codes: M54.5 - Low back pain; G89.29 - Other chronic pain RUFUS SARMIENTO MD Jul 04, 2017 17:12
== END 2017-07-04 17:32 | disposition home or self-care (01) ==
LOC: ER 15:32
DX: G89.29 Other chronic pain (principal); M54.5 Low back pain; R10.13 Epigastric pain; R11.10 Vomiting, unspecified; E78.00 Pure hypercholesterolemia, unspecified; I51.9 Heart disease, unspecified; Z88.6 Allergy status to analgesic agent; Z88.8 Allergy status to other drugs, medicaments and biological substances
CPT/HCPCS: 96372; 99283; J2270; Q0162

== ENCOUNTER 2017-07-16 20:13 | Emergency (ER) | payer OTHER ==
[~2017-07-16] VITALS: Ht 172.7 cm; Wt 110.7 kg
[~2017-07-16 20:13] MED LIST changes: +FAMO-63 PO
[2017-07-16 20:24] VITALS: BP 141/83
[2017-07-16] MEDS ORDERED: clonazePAM 0.5 MG TABLET PO STA (20:59)
[2017-07-16] MEDS ORDERED: traMADol 50 MG TABLET PO ONE (21:00)
[2017-07-16] MEDS ORDERED: CYCL10TA2 PO (21:10)
--- NOTE | 2017-07-16 21:10 | PHYS DOC ---
Past Medical History Past Medical History: High Cholesterol Additional Past Medical Histor: HEART DISEASE, CHRONIC BACK PAIN Past Surgical History: Other Additional Past Surgical Histo: BACK Alcohol Use: None Drug Use: None Adult General Chief Complaint Chief Complaint: BACK PAIN - NO INJURY HPI HPI Patient is a 51 year old female with a history of chronic back pain, high cholesterol, who presents today with moderate bilateral low back pain chronic in nature. Patient denies any trauma. She states her pain began today after she lifted a heavy trash bag. Patient denies any fever. Denies any loss of bowel bladder function. Patient is also complaining of right heel pain with no known injury. Patient states the pain is worse on ambulation. She does have a letter which is known for carrying around and presents to multiple EDs. The letter is written describing her medical condition, language and the medicines she wants which include Cymbalta for depression on clonazepam. Review of Systems Review of Systems Constitutional: Denies fever or chills [] GI: Denies abdominal pain, nausea, vomiting, bloody stools or diarrhea [] : Denies dysuria or hematuria [] Musculoskeletal: back pain. Right Heel pain. Integument: Denies rash or skin lesions [] Neurologic: Denies headache, focal weakness or sensory changes [] Allergies Allergies Allergies Coded Allergies Type Severity Reaction Last Updated Verified acetaminophen Allergy Intermediate NAUSEA/VOMITING 06/23/17 Yes ibuprofen Allergy Intermediate rash 06/23/17 Yes naproxen Allergy Intermediate rash 06/23/17 Yes Physical Exam Physical Exam Constitutional: Well developed, well nourished, no acute distress, non-toxic appearance. [] HENT: Normocephalic, atraumatic, bilateral external ears normal, oropharynx moist, no oral exudates, nose normal. [] Eyes: PERRLA, EOMI, conjunctiva normal, no discharge. [] Neck: Normal range of motion, no tenderness, supple, no stridor. [] Cardiovascular:Heart rate regular rhythm, no murmur [] Lungs & Thorax: Bilateral breath sounds clear to auscultation [] Abdomen: Bowel sounds normal, soft, no tenderness, no masses, no pulsatile masses. [] Skin: Warm, dry, no erythema, no rash. [] Back: Diffuse paraspinal muscle tenderness to bilateral lumbar spine, no midline lumbar spine tenderness, no CVA tenderness. [] Extremities: No tenderness, no cyanosis, no clubbing, ROM intact, no edema. Right heel with no obvious deformity. Dry cracked feet noted. +2 bilateral pedal pulses. Neurologic: Alert and oriented X 3, normal motor function, normal sensory function, no focal deficits noted. [] Psychologic: Affect normal, judgement normal, mood normal. [] Current Patient Data Vital Signs Vital Signs Date Time Temp Pulse Resp B/P (MAP) Pulse Ox O2 Delivery O2 Flow Rate FiO2 07/16/17 20:24 98.8 101 20 98 Room Air 98.8 EKG EKG [] Radiology/Procedures Radiology/Procedures [] Course & Med Decision Making Course & Med Decision Making Pertinent Labs and Imaging studies reviewed. (See chart for details) This is a 51-year-old female patient well known to this ED for chronic pain complaints especially low back. She is in the ED today with low back pain and heel pain. She was requesting pain medicine as well as clonazepam. Gave her 0.5 mg of clonazepam and Ultram in the ED. Discharge her with cyclobenzaprine. Follow-up with her own doctor on Wednesday. Eucerin recommended for her dry feet Dragon Disclaimer Dragon Disclaimer This electronic medical record was generated, in whole or in part, using a voice recognition dictation system. Departure Departure Impression: Primary Impression: Chronic low back pain Additional Impression: Dry skin Disposition: HOME, SELF-CARE Condition: STABLE Referrals: UNKNOWN PCP NAME (PCP) follow up with your doctor on Wednesday Patient Instructions: Back Pain, Adult Additional Instructions: You were seen for chronic low back pain and right heel pain. Take the prescribed medicines as ordered apply Eucerin to your dry feet. Follow-up with your doctor on Wednesday. Scripts Cyclobenzaprine Hcl (CYCLOBENZAPRINE HCL) 10 Mg Tablet 1 TAB PO TID, #30 TAB Prov: MEMO NELSON APRN 07/16/17 Problem Qualifiers Primary Impression: Chronic low back pain Back pain laterality: bilateral Sciatica presence: with sciatica Sciatica laterality: bilateral sciatica Qualified Codes: M54.42 - Lumbago with sciatica, left side; M54.41 - Lumbago with sciatica, right side; G89.29 - Other chronic pain MEMO NELSON APRN Jul 16, 2017 21:10
[2017-08-11] MEDS ORDERED: TRAM50TA PO (17:42)
[2017-10-04] MEDS ORDERED: ACET325T9 PO (13:50)
[2017-10-14] MEDS ORDERED: TRAM50TA PO (12:10)
== END 2017-07-16 21:20 | disposition home or self-care (01) ==
LOC: ER 20:13
DX: G89.29 Other chronic pain (principal); M54.41 Lumbago with sciatica, right side; M54.42 Lumbago with sciatica, left side; L98.8 Other specified disorders of the skin and subcutaneous tissue; M79.671 Pain in right foot; E78.00 Pure hypercholesterolemia, unspecified; Z88.6 Allergy status to analgesic agent
CPT/HCPCS: 99283

== ENCOUNTER 2017-07-19 15:56 | Emergency (ER) | payer OTHER ==
[2017-07-19] MEDS ORDERED: PRED-220 PO (16:28)
--- NOTE | 2017-07-19 16:29 | PHYS DOC ---
Past Medical History Past Medical History: High Cholesterol Additional Past Medical Histor: HEART DISEASE, CHRONIC BACK PAIN Past Surgical History: Other Additional Past Surgical Histo: BACK Alcohol Use: None Drug Use: None Adult General Chief Complaint Chief Complaint: MULTIPLE COMPLAINTS [facility] HPI Patient is a 51 year old female presents to the emergency department with complaints of right plantar foot pain for 5 days. No other injury. Patient also complains of asthma exacerbation for 5 days. She is in no acute distress upon arrival. She is seeking a tramadol prescription refill. Review of Systems Review of Systems Constitutional: Denies fever or chills [] Eyes: Denies change in visual acuity, redness, or eye pain [] HENT: Denies nasal congestion or sore throat [] Respiratory: Denies cough or shortness of breath [] Cardiovascular: No additional information not addressed in HPI [] GI: Denies abdominal pain, nausea, vomiting, bloody stools or diarrhea [] : Denies dysuria or hematuria [] Musculoskeletal: Right foot pain Integument: Denies rash or skin lesions [] Neurologic: Denies headache, focal weakness or sensory changes [] Endocrine: Denies polyuria or polydipsia [] Allergies Allergies Allergies Coded Allergies Type Severity Reaction Last Updated Verified acetaminophen Allergy Intermediate NAUSEA/VOMITING 06/23/17 Yes ibuprofen Allergy Intermediate rash 06/23/17 Yes naproxen Allergy Intermediate rash 06/23/17 Yes Physical Exam Physical Exam Constitutional: Well developed, well nourished, no acute distress, non-toxic appearance. [] HENT: Normocephalic, atraumatic, bilateral external ears normal, oropharynx moist, no oral exudates, nose normal. [] Eyes: PERRLA, EOMI, conjunctiva normal, no discharge. [] Neck: Normal range of motion, no tenderness, supple, no stridor. [] Cardiovascular:Heart rate regular rhythm, no murmur [] Lungs & Thorax: Bilateral breath sounds clear to auscultation [] Abdomen: Bowel sounds normal, soft, no tenderness, no masses, no pulsatile masses. [] Skin: Warm, dry, no erythema, no rash. [] Back: No tenderness, no CVA tenderness. [] Extremities: Right foot: No swelling, no erythema. She is tender to palpate over the plantar aspect. Achilles tendon is intact. Right ankle exam unremarkable. Neurovascular intact distally. Neurologic: Alert and oriented X 3, normal motor function, normal sensory function, no focal deficits noted. [] Psychologic: Affect normal, judgement normal, mood normal. [] EKG EKG [] Radiology/Procedures Radiology/Procedures [] Course & Med Decision Making Course & Med Decision Making Pertinent Labs and Imaging studies reviewed. (See chart for details) []Patient is no acute distress without asthma exacerbation at time of ER visit. She is well-known to the emergency Department for frequent requests for refills of her tramadol. I've had conversation with her before the noting that she needed to get chronic use pain medications refilled that primary care. [facility] Patient will be given 1 tramadol in the emergency department and a prescription for prednisone for her foot pain. She is advised on plantar fasciitis care, including appropriate shoe, excluding flip flops when she is currently wearing in the emergency department. Dragon Disclaimer Dragon Disclaimer This electronic medical record was generated, in whole or in part, using a voice recognition dictation system. Departure Departure Impression: Primary Impression: Plantar fasciitis of right foot Disposition: 01 HOME, SELF-CARE Condition: STABLE Referrals: UNKNOWN PCP NAME (PCP) Patient Instructions: Plantar Fasciitis Additional Instructions: Follow-up with your primary care provider in 2-5 days. Scripts Prednisone (PREDNISONE) 10 Mg Tablet 10 MG PO DAILY, #5 TAB Prov: SAMREEN COVINGTON APRN 07/19/17 SAMREEN COVINGTON APRN Jul 19, 2017 16:29
[2017-07-19 16:30] VITALS: BP 130/73
[2017-07-19] MEDS ORDERED: traMADol 50 MG TABLET PO ONE (16:30)
== END 2017-07-19 16:58 | disposition home or self-care (01) ==
LOC: ER 15:56
DX: M72.2 Plantar fascial fibromatosis (principal); J45.901 Unspecified asthma with (acute) exacerbation; E78.00 Pure hypercholesterolemia, unspecified; G89.29 Other chronic pain; Z88.6 Allergy status to analgesic agent
CPT/HCPCS: 99283

== ENCOUNTER 2017-08-26 23:21 | Emergency (ER) | payer OTHER ==
[~2017-08-26 23:21] MED LIST changes: +PRED-220 PO
[2017-08-26 23:25] VITALS: BP 152/73
[2017-08-26] MEDS ORDERED: CYCL10TA2 PO (23:43)
[2017-08-26] MEDS ORDERED: DICL50TA4 PO (23:43)
--- NOTE | 2017-08-26 23:43 | PHYS DOC ---
Past Medical History Past Medical History: No Pertinent History Additional Past Medical Histor: HEART DISEASE, CHRONIC BACK PAIN Past Surgical History: Other Additional Past Surgical Histo: BACK Alcohol Use: None Drug Use: None Adult General Chief Complaint Chief Complaint: FOOT INJURY PAIN [facility] HPI Patient is a 51 year old female with history of high cholesterol, chronic back pain, chronic pain related complaints who presents with exacerbation of chronic right heel pain rated at 7 out of 10 described as sharp. Patient denies any trauma. Denies any calf pain. Denies any recent hospitalization or use of hormones. Denies any chest pain or shortness of breath. Denies any long car or air travel. Review of Systems Review of Systems Constitutional: Denies fever or chills [] Eyes: Denies change in visual acuity, redness, or eye pain [] HENT: Denies nasal congestion or sore throat [] Respiratory: Denies cough or shortness of breath [] Cardiovascular: No additional information not addressed in HPI [] GI: Denies abdominal pain, nausea, vomiting, bloody stools or diarrhea [] : Denies dysuria or hematuria [] Musculoskeletal: Right heel pain chronic Integument: Denies rash or skin lesions [] Neurologic: Denies headache, focal weakness or sensory changes [] All other systems were reviewed and found to be within normal limits, except as documented in this note. Current Medications Current Medications Current Medications Medications (Trade) Dose Ordered Sig/Jayy Start Time Stop Time Status Last Admin Dose Admin Cyclobenzaprine HCl (Flexeril) 10 mg 1X ONCE 08/26/17 23:45 08/26/17 23:46 DC Oxycodone/ Acetaminophen (Percocet 5/325) 1 tab 1X ONCE 08/26/17 23:45 08/26/17 23:46 DC Allergies Allergies Allergies Coded Allergies Type Severity Reaction Last Updated Verified acetaminophen Allergy Intermediate NAUSEA/VOMITING 06/23/17 Yes ibuprofen Allergy Intermediate rash 06/23/17 Yes naproxen Allergy Intermediate rash 06/23/17 Yes Physical Exam Physical Exam Constitutional: Well developed, well nourished, no acute distress, non-toxic appearance. [] HENT: Normocephalic, atraumatic, bilateral external ears normal, oropharynx moist, no oral exudates, nose normal. [] Eyes: PERRLA, EOMI, conjunctiva normal, no discharge. [] Neck: Normal range of motion, no tenderness, supple, no stridor. [] Cardiovascular:Heart rate regular rhythm, no murmur [] Lungs & Thorax: Bilateral breath sounds clear to auscultation [] Abdomen: Bowel sounds normal, soft, no tenderness, no masses, no pulsatile masses. [] Skin: Warm, dry, no erythema, no rash. [] Back: No tenderness, no CVA tenderness. [] Extremities: Right foot with no obvious deformity. Her feet appear dry and are cracked on the heel. Tenderness on palpation of the right heel. Full range of motion to the right foot. Negative Homans sign to the right lower extremity. +2 right pedal pulse. Cap refill less than 2 seconds the right toes. Sensation intact to the right lower extremity. Neurologic: Alert and oriented X 3, normal motor function, normal sensory function, no focal deficits noted. [] Psychologic: Affect normal, judgement normal, mood normal. [] Current Patient Data Vital Signs Vital Signs Date Time Temp Pulse Resp B/P (MAP) Pulse Ox O2 Delivery O2 Flow Rate FiO2 08/26/17 23:25 97.5 75 20 98 Room Air 97.5 EKG EKG [] Radiology/Procedures Radiology/Procedures [] Course & Med Decision Making Course & Med Decision Making Pertinent Labs and Imaging studies reviewed. (See chart for details) Patient is in the ED with chronic right heel pain. She is well known to this ED for chronic pain complaints including chronic right heel pain. No known injury. Discharged with diclofenac and cyclobenzaprine. Follow-up with her own doctor at [facility] or the provided doctor. Dragon Disclaimer Dragon Disclaimer This electronic medical record was generated, in whole or in part, using a voice recognition dictation system. Departure Departure Impression: Primary Impression: Heel pain Disposition: HOME, SELF-CARE Condition: STABLE Referrals: UNKNOWN PCP NAME (PCP) STU SPENCER MD follow with the doctor provided or [facility] tomorrow. Patient Instructions: Musculoskeletal Pain Additional Instructions: You were seen for chronic right heel pain. Try and buy comfortable shoes to wear. Consider putting insoles in your shoes. Follow-up with your doctor at [facility] or the provided doctor tomorrow. Scripts Diclofenac Sodium (DICLOFENAC SODIUM) 50 Mg Tablet.dr 1 TAB PO BID, #20 TAB 0 Refills Prov: MEMO NELSON APRN 08/26/17 Cyclobenzaprine Hcl (CYCLOBENZAPRINE HCL) 10 Mg Tablet 1 TAB PO TID, #10 TAB Prov: MEMO NELSON APRN 08/26/17 Problem Qualifiers Primary Impression: Heel pain Laterality: right Qualified Codes: M79.671 - Pain in right foot MEMO NELSON APRN Aug 26, 2017 23:43
[2017-08-26] MEDS ORDERED: oxyCODONE/APAP 5/325 1 TAB TABLET PO ONE (23:45)
[2017-08-26] MEDS ORDERED: CYCLOBENZAPRINE 10 MG TABLET. PO ONE (23:45)
[2017-10-04] MEDS ORDERED: ACET325T9 PO (13:50)
[2017-10-14] MEDS ORDERED: TRAM50TA PO (12:10)
== END 2017-08-26 23:58 | disposition home or self-care (01) ==
LOC: ER 23:21
DX: G89.29 Other chronic pain (principal); M79.671 Pain in right foot; E78.00 Pure hypercholesterolemia, unspecified; Z88.6 Allergy status to analgesic agent; Z88.8 Allergy status to other drugs, medicaments and biological substances
CPT/HCPCS: 99283

== ENCOUNTER 2017-08-29 14:06 | Emergency (ER) | payer OTHER ==
[~2017-08-29 14:06] MED LIST changes: +DICL50TA4 PO
[2017-08-29 14:26] VITALS: BP 127/75
[2017-08-29] MEDS ORDERED: CYCL10TA2 PO (14:38)
[2017-08-29] MEDS ORDERED: PRED20TA PO (14:38)
--- NOTE | 2017-08-29 14:38 | PHYS DOC ---
Past Medical History Past Medical History: Heart Disease Additional Past Medical Histor: chronic pain, CHRONIC BACK PAIN Past Surgical History: Other Additional Past Surgical Histo: BACK Alcohol Use: None Drug Use: None Adult General Chief Complaint Chief Complaint: PAIN CONTROL HPI HPI Patient is a 51 year old female presents to the emergency department stating that she went to see her autistic child and tried to lift him up and injured her left lower back area. She states then she had to drive back from visiting him and had increased pain and discomfort. Patient states that she does not have any pain medication at home that she's not been able to take anything to alleviate the discomfort. She states that she has not tried any ice packs to the area as well. Patient is requesting tramadol at this time. Patient denies any loss of bowel or bladder. She denies any numbness or tingling down to the lower extremities. Review of Systems Review of Systems Constitutional: Denies fever or chills [] Eyes: Denies change in visual acuity, redness, or eye pain [] HENT: Denies nasal congestion or sore throat [] Respiratory: Denies cough or shortness of breath [] Cardiovascular: No additional information not addressed in HPI [] GI: Denies abdominal pain, nausea, vomiting, bloody stools or diarrhea [] : Denies dysuria or hematuria [] Musculoskeletal: left lower back pain denies joint pain [] Integument: Denies rash or skin lesions [] Neurologic: Denies headache, focal weakness or sensory changes [] Endocrine: Denies polyuria or polydipsia [] All other systems were reviewed and found to be within normal limits, except as documented in this note. Allergies Allergies Allergies Coded Allergies Type Severity Reaction Last Updated Verified acetaminophen Allergy Intermediate NAUSEA/VOMITING 06/23/17 Yes ibuprofen Allergy Intermediate rash 06/23/17 Yes naproxen Allergy Intermediate rash 06/23/17 Yes Physical Exam Physical Exam Constitutional: Well developed, well nourished, no acute distress, non-toxic appearance. [] HENT: Normocephalic, atraumatic, bilateral external ears normal, oropharynx moist, no oral exudates, nose normal. [] Eyes: PERRLA, EOMI, conjunctiva normal, no discharge. [] Neck: Normal range of motion, no tenderness, supple, no stridor. [] Cardiovascular:Heart rate regular rhythm, no murmur [] Lungs & Thorax: Bilateral breath sounds clear to auscultation [] Skin: Warm, dry, no erythema, no rash. [] Back: left lower back tenderness, no CVA tenderness. [] Extremities: No tenderness, no cyanosis, no clubbing, ROM intact, no edema. Patient able to ambulate with a good steady gait. Peripheral pulses 2+ cap refill brisk less than 2 seconds. Neurologic: Alert and oriented X 3, normal motor function, normal sensory function, no focal deficits noted. [] Psychologic: Affect normal, judgement normal, mood normal. [] Current Patient Data Vital Signs Vital Signs Date Time Temp Pulse Resp B/P (MAP) Pulse Ox O2 Delivery O2 Flow Rate FiO2 08/29/17 14:26 98.1 85 16 97 Room Air 98.1 EKG EKG [] Radiology/Procedures Radiology/Procedures [] Course & Med Decision Making Course & Med Decision Making Pertinent Labs and Imaging studies reviewed. (See chart for details) Patient will be discharged home in stable condition signs and symptoms to return back to the emergency department has been provided. Patient will be discharged home with a prescription for prednisone as she is allergic to nonsteroidal anti-inflammatories as well as Flexeril. Patient was instructed Flexeril will cause drowsiness do not take any be alert and oriented. Recommended ice packs on 20 minutes off 20 minutes several times a day. Recommended she follow up with her primary care physician in the next 5-7 days. Signs symptoms return back to emergency department has been provided. I've spoken with the patient and/or caregivers. I've explained the patient's condition, diagnosis and treatment plan based on information available to me at this time. I've answered the patient's and/or caregivers questions and addressed any concerns. The patient and/or caregivers have a good understanding the patient's diagnosis, condition and treatment plan as can be expected at this point. Vital signs have been stabilized. The patient's condition is stable for discharge from the emergency department. The patient will pursue further outpatient evaluation with her primary care provider or other designated consulting physician as outlined in the discharge instructions. Patient and/or caregivers are agreeable to this plan of care and follow-up instructions have been explained in detail. The patient and/or caregivers have received these instructions in written format and expressed understanding of these discharge instructions. The patient and her caregivers are aware that if any significant change in condition or worsening of symptoms should prompt him to immediately return to this of the closest emergency department. If an emergent department is not readily available I would encourage him to call 911. [] Zeus Disclaimer Zeus Disclaimer This electronic medical record was generated, in whole or in part, using a voice recognition dictation system. Departure Departure Impression: Primary Impression: Back pain Disposition: HOME, SELF-CARE Condition: STABLE Referrals: UNKNOWN PCP NAME (PCP) Patient Instructions: Back Pain, Adult, [id number] Additional Instructions: Activity as tolerated. Medications as prescribed. Ice packs on 20 minutes, off 20 minutes several times a day. Flexeril will cause drowsiness do not take any be alert and oriented. Follow-up through primary care physician in the next 5-7 days. Return back to emergency #symptoms become worse. Scripts Cyclobenzaprine Hcl (CYCLOBENZAPRINE HCL) 10 Mg Tablet 1 TAB PO TID Y for MUSCLE SPASMS, #30 TAB Prov: RICHARD MULLINS APRN 08/29/17 Prednisone (PREDNISONE) 20 Mg Tablet 40 MG PO DAILY for 7 Days, #14 TAB Prov: RICHARD MULLINS APRN 08/29/17 Problem Qualifiers Primary Impression: Back pain Back pain location: back pain in unspecified location Chronicity: unspecified Back pain laterality: unspecified Qualified Codes: M54.9 - Dorsalgia, unspecified RICHARD MULLINS APRN Aug 29, 2017 14:38
[2017-08-29] MEDS ORDERED: ORPHENADRINE CITRATE 60 MG/2 ML VIAL. IM ONE (14:45)
[2017-08-29] MEDS ORDERED: methylPREDNISolone SOD SUCC PF 125 MG/2 ML VIAL. IM ONE (14:45)
== END 2017-08-29 15:08 | disposition home or self-care (01) ==
LOC: ER 14:06
DX: M54.5 Low back pain (principal); F84.0 Autistic disorder; G89.29 Other chronic pain; Z88.6 Allergy status to analgesic agent; Z88.8 Allergy status to other drugs, medicaments and biological substances
CPT/HCPCS: 96372; 99284; J2360; J2930

== ENCOUNTER 2017-09-02 22:50 | Emergency (ER) | payer OTHER ==
[~2017-09-02] VITALS: Ht 165.1 cm; Wt 90.7 kg
[2017-09-02 23:08] VITALS: BP 183/87
--- NOTE | 2017-09-02 23:33 | PHYS DOC ---
Past Medical History Past Medical History: Heart Disease Additional Past Medical Histor: chronic pain, CHRONIC BACK PAIN Past Surgical History: Other Additional Past Surgical Histo: BACK Alcohol Use: None Drug Use: None Adult General Chief Complaint Chief Complaint: LOWER BACK PAIN OR [facility] HPI Patient is a 51 year old female presents to the emergency department requesting tramadol for her chronic back pain. Her pain is typical of her pain she's had it for greater than 2 weeks. She has not contacted her primary care provider. Well-known to the emergency department for request for tramadol refills Review of Systems Review of Systems Constitutional: Denies fever or chills [] Eyes: Denies change in visual acuity, redness, or eye pain [] HENT: Denies nasal congestion or sore throat [] Respiratory: Denies cough or shortness of breath [] Cardiovascular: No additional information not addressed in HPI [] GI: Denies abdominal pain, nausea, vomiting, bloody stools or diarrhea [] : Denies dysuria or hematuria [] Musculoskeletal: Chronic back pain Integument: Denies rash or skin lesions [] Neurologic: Denies headache, focal weakness or sensory changes [] Endocrine: Denies polyuria or polydipsia [] All other systems were reviewed and found to be within normal limits, except as documented in this note. Allergies Allergies Allergies Coded Allergies Type Severity Reaction Last Updated Verified acetaminophen Allergy Intermediate NAUSEA/VOMITING 06/23/17 Yes ibuprofen Allergy Intermediate rash 06/23/17 Yes naproxen Allergy Intermediate rash 06/23/17 Yes Physical Exam Physical Exam Constitutional: Well developed, well nourished, no acute distress, non-toxic appearance. [] Neck: Normal range of motion, no tenderness, supple, no stridor. [] Cardiovascular:Heart rate regular rhythm, no murmur [] Lungs & Thorax: Bilateral breath sounds clear to auscultation [] Abdomen: Bowel sounds normal, soft, no tenderness, no masses, no pulsatile masses. [] Skin: Warm, dry, no erythema, no rash. [] Back:diffuse tenderness without midline spine tenderness. Negative straight raise leg test. No saddle anesthesia. Extremities: No tenderness, no cyanosis, no clubbing, ROM intact, no edema. [] Neurologic: Alert and oriented X 3, normal motor function, normal sensory function, no focal deficits noted. [] Psychologic: Affect normal, judgement normal, mood normal. [] Current Patient Data Vital Signs Vital Signs Date Time Temp Pulse Resp B/P (MAP) Pulse Ox O2 Delivery O2 Flow Rate FiO2 09/02/17 23:08 98.4 74 18 97 Room Air 98.4 EKG EKG [] Radiology/Procedures Radiology/Procedures [] Course & Med Decision Making Course & Med Decision Making I discussed with the patient chronic pain and medication refills through primary care. She advised she would not be giving refills for chronic use pain medications in the emergency department she is to continue following up with her primary care provider. Patient was given Flexeril 10 mg by mouth in the emergency department her request. She'll be discharged home in stable condition. Pertinent Labs and Imaging studies reviewed. (See chart for details) [] Dragon Disclaimer Dragon Disclaimer This electronic medical record was generated, in whole or in part, using a voice recognition dictation system. Departure Departure Impression: Primary Impression: Chronic back pain Disposition: 01 HOME, SELF-CARE Condition: STABLE Referrals: UNKNOWN PCP NAME (PCP) [facility] Patient Instructions: Chronic Back Pain Problem Qualifiers Primary Impression: Chronic back pain Back pain location: low back pain Back pain laterality: bilateral Sciatica presence: without sciatica Qualified Codes: M54.5 - Low back pain; G89.29 - Other chronic pain SAMREEN COVINGTON APRN Sep 02, 2017 23:33
[2017-09-03] MEDS ORDERED: CYCLOBENZAPRINE 10 MG TABLET. PO ONE
== END 2017-09-02 23:45 | disposition home or self-care (01) ==
LOC: ER 22:50
DX: G89.29 Other chronic pain (principal); M54.5 Low back pain; Z88.6 Allergy status to analgesic agent
CPT/HCPCS: 99282

== ENCOUNTER 2017-09-11 17:20 | Emergency (ER) | payer OTHER ==
[2017-09-11 17:30] VITALS: BP 138/78
[2017-09-11] MEDS ORDERED: GABA-585 PO (17:54)
[2017-09-11] MEDS ORDERED: METH-37 PO (17:54)
--- NOTE | 2017-09-11 17:54 | PHYS DOC ---
Past Medical History Past Medical History: Heart Disease Additional Past Medical Histor: chronic pain, CHRONIC BACK PAIN Past Surgical History: Other Additional Past Surgical Histo: BACK Alcohol Use: None Drug Use: None Adult General Chief Complaint Chief Complaint: HEADACHE HPI HPI Patient is a 51 year old L presents to the emergency department with complaints of headache. Patient's well known to the emergency Department for chronic headaches with request for refills on her tramadol. Patient states she has had no blurred vision, double vision. Had nausea with one episode of vomiting. Patient states her headache is typical for her headache. She is also requesting a refill of her muscle relaxant Review of Systems Review of Systems Constitutional: Denies fever or chills [] Eyes: Denies change in visual acuity, redness, or eye pain [] HENT: Denies nasal congestion or sore throat [] Respiratory: Denies cough or shortness of breath [] Cardiovascular: No additional information not addressed in HPI [] GI: Denies abdominal pain, nausea, vomiting, bloody stools or diarrhea [] : Denies dysuria or hematuria [] Musculoskeletal: Denies back pain or joint pain [] Integument: Denies rash or skin lesions [] Neurologic: Headache without focal weakness or sensory change Endocrine: Denies polyuria or polydipsia [] All other systems were reviewed and found to be within normal limits, except as documented in this note. Allergies Allergies Allergies Coded Allergies Type Severity Reaction Last Updated Verified acetaminophen Allergy Intermediate NAUSEA/VOMITING 06/23/17 Yes ibuprofen Allergy Intermediate rash 06/23/17 Yes naproxen Allergy Intermediate rash 06/23/17 Yes Physical Exam Physical Exam Constitutional: Well developed, well nourished, no acute distress, non-toxic appearance. [] HENT: Normocephalic, atraumatic, bilateral external ears normal, oropharynx moist, no oral exudates, nose normal. [] Eyes: PERRLA, EOMI, conjunctiva normal, no discharge. [] Neck: Normal range of motion, no tenderness, supple, no stridor. [] Cardiovascular:Heart rate regular rhythm, no murmur [] Lungs & Thorax: Bilateral breath sounds clear to auscultation [] Abdomen: Bowel sounds normal, soft, no tenderness, no masses, no pulsatile masses. [] Skin: Warm, dry, no erythema, no rash. [] Back: No tenderness, no CVA tenderness. [] Extremities: No tenderness, no cyanosis, no clubbing, ROM intact, no edema. [] Neurologic: Alert and oriented X 3, normal motor function, normal sensory function, no focal deficits noted. [] Psychologic: Affect normal, judgement normal, mood normal. [] Current Patient Data Vital Signs Vital Signs Date Time Temp Pulse Resp B/P (MAP) Pulse Ox O2 Delivery O2 Flow Rate FiO2 09/11/17 17:30 98.6 93 16 100 Room Air 98.6 EKG EKG [] Radiology/Procedures Radiology/Procedures [] Course & Med Decision Making Course & Med Decision Making Pertinent Labs and Imaging studies reviewed. (See chart for details) [] Dragon Disclaimer Dragon Disclaimer This electronic medical record was generated, in whole or in part, using a voice recognition dictation system. Departure Departure Impression: Primary Impression: Headache Additional Impression: Medication refill Disposition: HOME, SELF-CARE Condition: STABLE Referrals: UN[facility]) [facility] Patient Instructions: General Headache Without Cause, [id number], Medication Refill, Emergency Department Scripts Gabapentin (GABAPENTIN) 100 Mg Capsule 100 MG PO TID, #30 CAP Prov: SAMREEN COVINGTON APRN 09/11/17 Methocarbamol (ROBAXIN) 500 Mg Tablet 1 TAB PO BID, #20 TAB Prov: SAMREEN COVINGTON APRN 09/11/17 Problem Qualifiers Primary Impression: Headache Headache type: other headache syndrome Qualified Codes: G44.89 - Other headache syndrome SAMREEN COVINGTON APRN Sep 11, 2017 17:54
[2017-09-11] MEDS ORDERED: ONDANSETRON ODT 4 MG TAB.RAPDIS. PO ONE (18:30)
[2017-09-11] MEDS ORDERED: ACETAMINOPHEN 500 MG TABLET PO ONE (18:30)
== END 2017-09-11 17:58 | disposition home or self-care (01) ==
LOC: ER 17:20
DX: Z76.0 Encounter for issue of repeat prescription (principal); G44.89 Other headache syndrome; G89.29 Other chronic pain; I51.9 Heart disease, unspecified; Z88.6 Allergy status to analgesic agent
CPT/HCPCS: 99283; Q0162

== ENCOUNTER 2017-09-15 13:30 | Emergency (ER) | payer OTHER ==
[~2017-09-15] VITALS: Ht 167.6 cm; Wt 90.7 kg
[2017-09-15 13:35] VITALS: BP 117/80
[2017-09-15] MEDS ORDERED: oxyCODONE/APAP 5/325 1 TAB TABLET PO ONE (14:00)
--- NOTE | 2017-09-15 14:05 | PHYS DOC ---
Past Medical History Past Medical History: Heart Disease Additional Past Medical Histor: chronic pain, CHRONIC BACK PAIN Past Surgical History: Other Additional Past Surgical Histo: BACK Alcohol Use: None Drug Use: None Adult General Chief Complaint Chief Complaint: PAIN CONTROL HPI HPI Patient is a 51 year old female presents the ED complaining of chronic back pain times one day. Patient states she is out of her prescription for her pain meds. States same symptoms as previous exacerbations of her back pain. Patient able to ambulate without assistance. Denies bowel/bladder changes, saddle anesthesia, radiating pain, nausea/vomiting, fever, weakness, chest pain or shortness of breath. Review of Systems Review of Systems Constitutional: Denies fever or chills [] Eyes: Denies change in visual acuity, redness, or eye pain [] HENT: Denies nasal congestion or sore throat [] Respiratory: Denies cough or shortness of breath [] Cardiovascular: No additional information not addressed in HPI [] GI: Denies abdominal pain, nausea, vomiting, bloody stools or diarrhea [] : Denies dysuria or hematuria [] Musculoskeletal: Complains of back pain. Denies joint pain [] Integument: Denies rash or skin lesions [] Neurologic: Denies headache, focal weakness or sensory changes [] Endocrine: Denies polyuria or polydipsia [] All other systems were reviewed and found to be within normal limits, except as documented in this note. Current Medications Current Medications Current Medications Medications (Trade) Dose Ordered Sig/Jayy Start Time Stop Time Status Last Admin Dose Admin Oxycodone/ Acetaminophen (Percocet 5/325) 1 tab 1X ONCE 09/15/17 14:00 09/15/17 14:01 DC 09/15/17 14:02 1 TAB Allergies Allergies Allergies Coded Allergies Type Severity Reaction Last Updated Verified acetaminophen Allergy Intermediate NAUSEA/VOMITING 06/23/17 Yes ibuprofen Allergy Intermediate rash 06/23/17 Yes naproxen Allergy Intermediate rash 06/23/17 Yes Physical Exam Physical Exam Constitutional: Well developed, well nourished, no acute distress, non-toxic appearance. [] HENT: Normocephalic, atraumatic, bilateral external ears normal, oropharynx moist, no oral exudates, nose normal. [] Eyes: PERRLA, EOMI, conjunctiva normal, no discharge. [] Neck: Normal range of motion, no tenderness, supple, no stridor. [] Cardiovascular:Heart rate regular rhythm, no murmur [] Lungs & Thorax: Bilateral breath sounds clear to auscultation [] Abdomen: Bowel sounds normal, soft, no tenderness, no masses, no pulsatile masses. [] Skin: Warm, dry, no erythema, no rash. [] Back: Back Scar noticed, C/D/I. No bony tenderness, no CVA tenderness. [] Extremities: No tenderness, no cyanosis, no clubbing, ROM intact, no edema. [] Neurologic: Alert and oriented X 3, normal motor function, normal sensory function, no focal deficits noted. [] Psychologic: Affect normal, judgement normal, mood normal. [] Current Patient Data Vital Signs Vital Signs Date Time Temp Pulse Resp B/P (MAP) Pulse Ox O2 Delivery O2 Flow Rate FiO2 09/15/17 14:02 18 98 Room Air 09/15/17 13:35 98.4 84 98.4 EKG EKG [] Radiology/Procedures Radiology/Procedures [] Course & Med Decision Making Course & Med Decision Making Pertinent Labs and Imaging studies reviewed. (See chart for details) []No bony tenderness. No imaging warranted. Patient given 1 of her pain pills ( oxycodone) in the ED. Patient will not be given a prescription for analgesics. Patient well known to this ED. Patient demonstrates drug seeking behavior. Discussed the importance of follow-up with PCP or chronic pain clinic. Provided contact information and education for both types of follow-up. Patient able to ambulate without assistance. No focal neural deficits. Discussed the importance of follow-up and reasons to return to the ED. Patient understands and agrees with plan. Dragon Disclaimer Dragon Disclaimer This electronic medical record was generated, in whole or in part, using a voice recognition dictation system. Departure Departure Impression: Primary Impression: Chronic low back pain Disposition: HOME, SELF-CARE Condition: IMPROVED Referrals: UNKNOWN PCP NAME (PCP) JACLYN MUKHERJEE MD, MICHAEL M MD Patient Instructions: Chronic Back Pain PEPPER LALA Sep 15, 2017 14:05
== END 2017-09-15 14:12 | disposition home or self-care (01) ==
LOC: ER 13:30
DX: G89.29 Other chronic pain (principal); M54.5 Low back pain; Z88.6 Allergy status to analgesic agent; Z88.8 Allergy status to other drugs, medicaments and biological substances; Z98.890 Other specified postprocedural states
CPT/HCPCS: 99282

== ENCOUNTER 2017-09-16 09:09 | Emergency (ER) | payer OTHER ==
[~2017-09-16] VITALS: Ht 165.1 cm; Wt 97.5 kg
[2017-09-16] MEDS ORDERED: ASPIRIN 325 MG TABLET PO ONE (09:45)
--- NOTE | 2017-09-16 09:47 | RAD ---
Single View of the Chest 09/16/2017 11:25 AM Indication: chest pain and leg swelling Comparison: Chest radiograph November 08, 2016 Findings: There is no focal consolidation or infiltrate identified. There is no effusion or pneumothorax. The cardiomediastinal silhouette and pulmonary vasculature are within normal limits. No osseous abnormality is identified. Impression: No evidence of acute cardiopulmonary process.
--- NOTE | 2017-09-16 09:50 | PHYS DOC ---
Past Medical History Past Medical History: Heart Disease, Other Additional Past Medical Histor: chronic pain, CHRONIC BACK PAIN Past Surgical History: Other Additional Past Surgical Histo: BACK Alcohol Use: None Drug Use: None Adult General Chief Complaint Chief Complaint: CHEST PAIN HPI HPI Patient is a 51 year old female whom presents the ED complaining of pain to back , chest and right foot X 5 days. Patient has a history of chronic pain. Patient was seen in the ED yesterday for some similar symptoms. Patient states she has not received her chronic pain medications today or received a prescription from a provider. Patient states she has been unable to get in to see her PCP. Patient states she was seen and worked up at [facility] 2 days ago. Discharged and given follow-up for an appointment on the 23 of September. Patient states her pain is sharp in all 3 locations. Describes her pain as 10 out of 10. States the pain is the same pain she chronically has. Denies shortness of breath, weakness, dizziness, headache, fever, nausea/vomiting, abdominal pain, inability to ambulate, diarrhea or blood in stool. Review of Systems Review of Systems Constitutional: Denies fever or chills [] Eyes: Denies change in visual acuity, redness, or eye pain [] HENT: Denies nasal congestion or sore throat [] Respiratory: Denies cough or shortness of breath [] Cardiovascular: No additional information not addressed in HPI [] GI: Denies abdominal pain, nausea, vomiting, bloody stools or diarrhea [] : Denies dysuria or hematuria [] Musculoskeletal: Complains of back and right foot pain. [] Integument: Denies rash or skin lesions [] Neurologic: Denies headache, focal weakness or sensory changes [] Endocrine: Denies polyuria or polydipsia [] All other systems were reviewed and found to be within normal limits, except as documented in this note. Current Medications Current Medications Current Medications Medications (Trade) Dose Ordered Sig/Jayy Start Time Stop Time Status Last Admin Dose Admin Aspirin (Anthony Aspirin) 325 mg 1X ONCE 09/16/17 09:45 09/16/17 09:46 DC 09/16/17 09:47 325 MG Allergies Allergies Allergies Coded Allergies Type Severity Reaction Last Updated Verified acetaminophen Allergy Intermediate NAUSEA/VOMITING 06/23/17 Yes ibuprofen Allergy Intermediate rash 06/23/17 Yes naproxen Allergy Intermediate rash 06/23/17 Yes Physical Exam Physical Exam Constitutional: Well developed, well nourished, no acute distress, non-toxic appearance. [] HENT: Normocephalic, atraumatic, bilateral external ears normal, oropharynx moist, no oral exudates, nose normal. [] Eyes: PERRLA, EOMI, conjunctiva normal, no discharge. [] Neck: Normal range of motion, no tenderness, supple, no stridor. [] Cardiovascular:Heart rate regular rhythm, no murmur [] Lungs & Thorax: Bilateral breath sounds clear to auscultation [] Abdomen: Bowel sounds normal, soft, no tenderness, no masses, no pulsatile masses. [] Skin: Warm, dry, no erythema, no rash. [] Back: Scar to lower back. C/D/I. No tenderness, no CVA tenderness. [] Extremities: No tenderness, no cyanosis, no clubbing, ROM intact, no edema. No overlying skin changes. [] Neurologic: Alert and oriented X 3, normal motor function, normal sensory function, no focal deficits noted. [] Psychologic: Affect normal, judgement normal, mood normal. [] Current Patient Data Vital Signs Vital Signs Date Time Temp Pulse Resp B/P (MAP) Pulse Ox O2 Delivery O2 Flow Rate FiO2 09/16/17 10:13 76 19 114/81 (92) 97 Room Air 09/16/17 09:15 98.3 98.3 Lab Values Laboratory Tests Test 09/16/17 09:33 POC Troponin I 0.01 ng/ml (<0.08) EKG EKG []NSR at 74 BPM. No Stemi Radiology/Procedures Radiology/Procedures [] Course & Med Decision Making Course & Med Decision Making Pertinent Labs and Imaging studies reviewed. (See chart for details) []Discussed labs and imaging with patient. Patient requesting oxycodone for pain relief. Patient seen yesterday in the ED and was requesting same medicine for her chronic pain. Patient on [facility] has multiple prescriptions of tramadol and other schedule II drugs. Patient has been provided contact information and education for appropriate chronic pain follow-up. Patient continues to return to the ED requesting narcotic pain medication or muscle relaxers without following discharge instructions for follow-up. Drug-seeking behavior demonstrated. No analgesics given to patient. Discussed the appropriate follow- up and reasons to return to the ED. Patient verbalizes understanding. Patient able to ambulate without assistance exiting the ED. Dragon Disclaimer Dragon Disclaimer This electronic medical record was generated, in whole or in part, using a voice recognition dictation system. Departure Departure Impression: Primary Impression: Chronic back pain Additional Impression: Chronic pain Disposition: 01 HOME, SELF-CARE Condition: IMPROVED Referrals: UNKNOWN PCP NAME (PCP) JACLYN MUKHERJEE MD, MICHAEL M MD Patient Instructions: Chronic Back Pain, Chronic Pain, Chronic Pain Management Problem Qualifiers PEPPER LALA Sep 16, 2017 09:50
--- NOTE | 2017-09-16 09:55 | EKG ---
[facility] [address] [place] [address] Test Date: 2017-09-16 Test Time: 09:18:21 Pat Name: JACKY GLASER Department: Room: Gender: F [employer] In[employer]: : 1965 Requested By: PEPPER LALA Order Number: [id number] Reading MD: Measurements Intervals [place] Rate: 74 P: 34 WA: 150 QRS: 34 QRSD: 82 T: 38 QT: 370 QTc: 411 Interpretive Statements SINUS RHYTHM QRS(T) CONTOUR ABNORMALITY CONSIDER ANTEROLATERAL MYOCARDIAL DAMAGE POSSIBLY ABNORMAL ECG RI6.01 No previous ECG available for comparison
[2017-09-16 10:13] VITALS: BP 114/81
== END 2017-09-16 10:15 | disposition home or self-care (01) ==
LOC: ER 09:09
DX: G89.29 Other chronic pain (principal); M54.89 Other dorsalgia; Z88.6 Allergy status to analgesic agent; Z88.8 Allergy status to other drugs, medicaments and biological substances
CPT/HCPCS: 71010; 84484; 93005; 99284-25

== ENCOUNTER 2017-09-26 09:50 | Emergency (ER) | payer OTHER ==
[~2017-09-26] VITALS: Ht 162.6 cm; Wt 97.5 kg
[2017-09-26 10:33] VITALS: BP 162/91
[2017-09-26] MEDS ORDERED: METHOCARBAMOL 500 MG TABLET PO STA (10:43)
[2017-09-26] MEDS ORDERED: traMADol 50 MG TABLET PO ONE (10:45)
[2017-09-26] MEDS ORDERED: DICL50TA4 PO (10:52)
[2017-09-26] MEDS ORDERED: CYCL10TA2 PO (10:52)
--- NOTE | 2017-09-26 10:53 | PHYS DOC ---
Past Medical History Past Medical History: Asthma, COPD, High Cholesterol, Heart Disease, Sciatica, Other Additional Past Medical Histor: chronic pain, CHRONIC BACK PAIN Past Surgical History: Other Additional Past Surgical Histo: BACK Alcohol Use: None Drug Use: None Adult General Chief Complaint Chief Complaint: LOWER BACK PAIN OR INJURY HPI HPI Patient is a 52 year old female with history of high cholesterol, asthma, who presents today complaining of exacerbation of chronic bilateral low back pain radiating to the right lower extremity since yesterday. Patient states yesterday she went and visited her autistic son and developed pain. Patient denies any trauma. Denies any loss of bowel bladder function. She states her pain is worse on range of motion as well as ambulation. She is well known to this ED for chronic pain related complaints. Review of Systems Review of Systems Constitutional: Denies fever or chills [] GI: Denies abdominal pain, nausea, vomiting, bloody stools or diarrhea [] : Denies dysuria or hematuria [] Musculoskeletal: Bilateral low back pain radiating to the right lower extremity since yesterday Integument: Denies rash or skin lesions [] Neurologic: Denies headache, focal weakness or sensory changes [] All other systems were reviewed and found to be within normal limits, except as documented in this note. Allergies Allergies Allergies Coded Allergies Type Severity Reaction Last Updated Verified acetaminophen Allergy Intermediate NAUSEA/VOMITING 06/23/17 Yes ibuprofen Allergy Intermediate rash 06/23/17 Yes naproxen Allergy Intermediate rash 06/23/17 Yes Physical Exam Physical Exam Constitutional: Well developed, well nourished, no acute distress, non-toxic appearance. [] Abdomen: Bowel sounds normal, soft, no tenderness, no masses, no pulsatile masses. [] Skin: Warm, dry, no erythema, no rash. [] Back: Diffuse paraspinal muscle tenderness to bilateral lumbar spine, worse on bilateral SI joints, no midline lumbar spine tenderness, no CVA tenderness. Positive straight leg raises bilaterally. Extremities: No tenderness, no cyanosis, no clubbing, ROM intact, no edema. [] Neurologic: Alert and oriented X 3, normal motor function, normal sensory function, no focal deficits noted. [] Psychologic: Affect normal, judgement normal, mood normal. [] Current Patient Data Vital Signs Vital Signs Date Time Temp Pulse Resp B/P (MAP) Pulse Ox O2 Delivery O2 Flow Rate FiO2 09/26/17 10:33 98.2 98 20 96 Room Air 98.2 EKG EKG [] Radiology/Procedures Radiology/Procedures [] Course & Med Decision Making Course & Med Decision Making Pertinent Labs and Imaging studies reviewed. (See chart for details) Patient is in the ED with exacerbation of chronic back pain with sciatica. She is well known to this ED for chronic back pain. She is given cyclobenzaprine and diclofenac and discharged. Instructed to follow-up with her PCP as well as a pain clinic at [facility] in 1-2 weeks. Dragon Disclaimer Dragon Disclaimer This electronic medical record was generated, in whole or in part, using a voice recognition dictation system. Departure Departure Impression: Primary Impression: Chronic back pain Additional Impression: Sciatica Disposition: HOME, SELF-CARE Condition: STABLE Referrals: UNKNOWN PCP NAME (PCP) follow up with your doctor in 1 week Patient Instructions: Back Pain, Adult, Sciatica, [id number] Additional Instructions: You were seen with exacerbation of chronic back pain with sciatica. Please take the prescribed medicines as needed for pain. Follow-up with [facility] pain clinic as well as your primary care doctor tomorrow. Scripts Diclofenac Sodium (DICLOFENAC SODIUM) 50 Mg Tablet.dr 1 TAB PO BID, #20 TAB 0 Refills Prov: MEMO NELSON APRN 09/26/17 Cyclobenzaprine Hcl (CYCLOBENZAPRINE HCL) 10 Mg Tablet 1 TAB PO TID, #30 TAB Prov: MEMO NELSON APRN 09/26/17 Problem Qualifiers Primary Impression: Chronic back pain Back pain location: low back pain Back pain laterality: bilateral Sciatica presence: with sciatica Sciatica laterality: bilateral sciatica Qualified Codes: M54.42 - Lumbago with sciatica, left side; M54.41 - Lumbago with sciatica, right side; G89.29 - Other chronic pain Additional Impression: Sciatica Laterality: bilateral Qualified Codes: M54.31 - Sciatica, right side; M54.32 - Sciatica, left side MEMO NELSON APRN Sep 26, 2017 10:52
== END 2017-09-26 11:15 | disposition home or self-care (01) ==
LOC: ER 09:50
DX: G89.29 Other chronic pain (principal); M54.41 Lumbago with sciatica, right side; J44.9 Chronic obstructive pulmonary disease, unspecified; E78.00 Pure hypercholesterolemia, unspecified; Z88.1 Allergy status to other antibiotic agents; Z88.6 Allergy status to analgesic agent; Z88.8 Allergy status to other drugs, medicaments and biological substances
CPT/HCPCS: 99283

== ENCOUNTER 2017-10-03 23:47 | Emergency (ER) | payer OTHER ==
[2017-10-04] MEDS: traMADol 50 MG TABLET PO (00:11)
== END 2017-10-04 00:16 | disposition home or self-care (01) ==
LOC: ER 23:47
DX: G89.29 Other chronic pain (principal); M54.31 Sciatica, right side; M79.671 Pain in right foot; E78.00 Pure hypercholesterolemia, unspecified; J44.9 Chronic obstructive pulmonary disease, unspecified; Z88.6 Allergy status to analgesic agent
CPT/HCPCS: 99282

== ENCOUNTER 2017-10-04 11:31 | Emergency (ER) | payer OTHER ==
[2017-10-04] MEDS: CYCLOBENZAPRINE 10 MG TABLET. PO (13:05)
[2017-10-04] MEDS: NAPROXEN 500 MG TABLET PO (13:05)
[2017-10-04] MEDS: predniSONE 20 MG TABLET PO (13:05)
== END 2017-10-04 14:01 | disposition home or self-care (01) ==
LOC: ER 11:31
DX: M54.41 Lumbago with sciatica, right side (principal); G89.29 Other chronic pain; R60.9 Edema, unspecified; J44.9 Chronic obstructive pulmonary disease, unspecified; E78.00 Pure hypercholesterolemia, unspecified; Z88.6 Allergy status to analgesic agent
CPT/HCPCS: 99284; J7512

== ENCOUNTER 2017-10-08 15:03 | Emergency (ER) | payer OTHER | END 2017-10-08 16:53 | disposition home or self-care (01) | LOC: ER 15:03 | DX: S90.122A Contusion of left lesser toe(s) without damage to nail, initial encounter (principal); G89.29 Other chronic pain; E78.00 Pure hypercholesterolemia, unspecified; J44.9 Chronic obstructive pulmonary disease, unspecified; Z88.6 Allergy status to analgesic agent; W18.39XA Other fall on same level, initial encounter; Y93.89 Activity, other specified; Y92.89 Other specified places as the place of occurrence of the external cause; Y99.8 Other external cause status | CPT/HCPCS: 73630; 99284 ==

== ENCOUNTER 2017-10-14 10:40 | Emergency (ER) | payer OTHER ==
[2017-10-14 11:36] LABS: NEGATIVE OBC STREP NEG
[2017-10-14 11:37] LABS: POSITIVE OBC STREP POS
[2017-10-14 12:01] LABS: INFLUENZA A PATIENT NEGATIVE (NEGATIVE); INFLUENZA B PATIENT NEGATIVE (NEGATIVE); OBC FLU VALID
== END 2017-10-14 12:26 | disposition home or self-care (01) ==
LOC: ER 10:40
DX: S93.602A Unspecified sprain of left foot, initial encounter (principal); J06.9 Acute upper respiratory infection, unspecified; B97.89 Other viral agents as the cause of diseases classified elsewhere; E78.00 Pure hypercholesterolemia, unspecified; F32.9 Major depressive disorder, single episode, unspecified; Z90.710 Acquired absence of both cervix and uterus; Z88.6 Allergy status to analgesic agent; X58.XXXA Exposure to other specified factors, initial encounter; Y93.89 Activity, other specified; Y92.89 Other specified places as the place of occurrence of the external cause; Y99.8 Other external cause status
CPT/HCPCS: 73630; 87070; 87804; 87804-59; 87880; 99285

== ENCOUNTER 2017-11-06 14:38 | Emergency (ER) | payer OTHER | END 2017-11-06 15:40 | disposition home or self-care (01) | LOC: ER 14:38 | DX: L08.89 Other specified local infections of the skin and subcutaneous tissue (principal); B96.89 Other specified bacterial agents as the cause of diseases classified elsewhere; E78.00 Pure hypercholesterolemia, unspecified; Z88.5 Allergy status to narcotic agent; Z88.6 Allergy status to analgesic agent | CPT/HCPCS: 99283 ==

== ENCOUNTER 2017-11-28 20:56 | Emergency (ER) | payer OTHER ==
[2017-11-28] MEDS: traMADol 50 MG TABLET PO ×2 (21:41)
== END 2017-11-28 21:55 | disposition home or self-care (01) ==
LOC: ER 20:56
DX: L02.215 Cutaneous abscess of perineum (principal); E78.00 Pure hypercholesterolemia, unspecified; Z88.5 Allergy status to narcotic agent; Z88.6 Allergy status to analgesic agent; Z90.710 Acquired absence of both cervix and uterus
CPT/HCPCS: 99282

== ENCOUNTER 2017-12-08 08:58 | Inpatient (IN) | payer OTHER ==
[2017-12-08 10:28] LABS: ADD MAN DIFF? NO
[2017-12-08] MEDS: traMADol 50 MG TABLET PO (10:30)
[2017-12-08 10:46] LABS: ANION GAP 3 (6-14); BLOOD UREA NITROGEN 19 mg/dL (7-20); BUN/CREATININE RATIO 15 (6-20); CALCIUM 8.2 mg/dL (8.5-10.1); CARBON DIOXIDE 32 mmol/L (21-32); CHLORIDE 98 mmol/L (98-107); CREATININE 1.3 mg/dL (0.6-1.0); GLUCOSE 105 mg/dL (70-99); POTASSIUM 4.4 mmol/L (3.5-5.1); SODIUM 133 mmol/L (136-145)
[2017-12-08 10:52] LABS: ALBUMIN 3.2 g/dL (3.4-5.0); ALBUMIN/GLOBULIN RATIO 0.8 (1.0-1.7); ALK PHOS 84 U/L (46-116); ALT (SGPT) 27 U/L (14-59); AST (SGOT) 31 U/L (15-37); TOTAL BILIRUBIN 0.2 mg/dL (0.2-1.0); TOTAL PROTEIN 7.2 g/dL (6.4-8.2)
[2017-12-08 10:56] LABS: BASO # 0.1 x10^3/uL (0.0-0.2); BASO % 1 % (0-3); EOS # 0.4 x10^3/uL (0.0-0.7); EOS % 4 % (0-3); HEMATOCRIT 31.7 % (36.0-47.0); HEMOGLOBIN 10.7 g/dL (12.0-15.5); LYMPH # 1.4 x10^3/uL (1.0-4.8); LYMPH % 13 % (24-48); MEAN CORPUSCULAR HEMOGLOBIN 30 pg (25-35); MEAN CORPUSCULAR HGB CONC 34 g/dL (31-37); MEAN CORPUSCULAR VOLUME 90 fL (79-100); MONO % 10 % (0-9); NEUT # 7.8 x10^3uL (1.8-7.7); NEUT % 73 % (31-73); PLATELET COUNT 348 x10^3/uL (140-400); RED BLOOD COUNT 3.51 x10^6/uL (3.50-5.40); RED CELL DISTRIBUTION WIDTH 15.3 % (11.5-14.5); WHITE BLOOD COUNT 10.6 x10^3/uL (4.0-11.0)
[2017-12-08] MEDS: VANCOMYCIN 2 GM in IV DEXTROSE 5 %-0.45 % NACL 500 ML IV (11:01)
[2017-12-08 11:28] LABS: NT-PRO BNP 76 pg/mL (0-124)
[2017-12-08] MEDS: MORPHINE SULFATE 4 MG/ML DISP.SYRIN. IV ×2 (14:01→16:38)
[2017-12-08] MEDS: ONDANSETRON PF 4 MG/2 ML VIAL. IV (14:02)
[2017-12-08] MEDS: POTASSIUM CHLORIDE 10 MEQ TABLET.ER. PO (15:00)
[2017-12-08] MEDS ORDERED: ALBUTEROL SULFATE 2.5 MG/3 ML NEBU. NEB (15:15)
[2017-12-08] MEDS: VANCOMYCIN PER PHARMACY MC (15:27)
[2017-12-08] MEDS ORDERED: ONDANSETRON PF 4 MG/2 ML VIAL. IV (16:00)
[2017-12-08] MEDS: DULoxetine HCL 30 MG CAPSULE.DR PO ×2 (16:29→22:57)
[2017-12-08] MEDS: PANTOPRAZOLE 40 MG TABLET.DR. PO (16:29)
[2017-12-08] MEDS: FUROSEMIDE 20 MG TABLET PO (16:38)
[2017-12-08] MEDS: PIPERACILLIN/TAZOBACTAM 3.375 GM in IV NORMAL SALINE 50ML 50 ML IV ×2 (17:47→23:34)
[2017-12-08] MEDS: BUDESONIDE 0.5 MG/2 ML NEBU. NEB (18:02)
[2017-12-08] MEDS: ALBUTEROL SULFATE 2.5 MG/3 ML NEBU. NEB (18:02)
[2017-12-08] MEDS: SIMVASTATIN 10 MG TABLET PO (20:18)
[2017-12-08] MEDS: GABAPENTIN 300 MG CAPSULE. PO (20:18)
[2017-12-08] MEDS: LACTOBACILLUS RHAMNOSUS GG 1 CAPSULE. PO (20:18)
[2017-12-08] MEDS: clonazePAM 1 MG TABLET PO (20:18)
[2017-12-08] MEDS: DIVALPROEX EXTENDED RELEASE 500 MG TAB.ER.24H. PO (20:19)
[2017-12-08] MEDS: oxyCODONE/APAP 5/325 1 TAB TABLET PO (20:19)
[2017-12-08] MEDS: ACETAMINOPHEN 325 MG TABLET. PO (20:24)
[2017-12-08] MEDS ORDERED: NON FORMULARY ITEM (Budesonide/Formoterol Fumarate (Symbicort 160-4.5 Mcg Inhaler) 2 PUFF) IH (21:00)
[2017-12-09] MEDS: MORPHINE SULFATE 4 MG/ML DISP.SYRIN. IV ×2 (00:38→05:05)
[2017-12-09] MEDS: oxyCODONE/APAP 5/325 1 TAB TABLET PO ×3 (03:19→16:14)
[2017-12-09] MEDS: PIPERACILLIN/TAZOBACTAM 3.375 GM in IV NORMAL SALINE 50ML 50 ML IV ×3 (05:02→18:15)
[2017-12-09] MEDS: VANCOMYCIN 2 GM in IV DEXTROSE 5 %-0.45 % NACL 500 ML IV (05:02)
[2017-12-09] MEDS: ACETAMINOPHEN 325 MG TABLET. PO ×2 (05:05→20:17)
[2017-12-09 06:29] LABS: ANION GAP 3 (6-14); BLOOD UREA NITROGEN 13 mg/dL (7-20); CALCIUM 8.1 mg/dL (8.5-10.1); CARBON DIOXIDE 32 mmol/L (21-32); CHLORIDE 101 mmol/L (98-107); GFR 58.2; GLUCOSE 105 mg/dL (70-99); POTASSIUM 4.3 mmol/L (3.5-5.1); SODIUM 136 mmol/L (136-145)
[2017-12-09] MEDS: PANTOPRAZOLE 40 MG TABLET.DR. PO ×2 (06:45→16:14)
[2017-12-09 06:51] LABS: C-REACTIVE PROTEIN 173.8 mg/L (0-3.3)
[2017-12-09 07:04] LABS: SEDIMENTATION RATE 72 (0-25)
[2017-12-09] MEDS: BUDESONIDE 0.5 MG/2 ML NEBU. NEB ×2 (07:33→19:49)
[2017-12-09] MEDS: ALBUTEROL SULFATE 2.5 MG/3 ML NEBU. NEB ×4 (07:34→19:50)
[2017-12-09] MEDS: GABAPENTIN 300 MG CAPSULE. PO ×3 (08:26→20:17)
[2017-12-09] MEDS: POTASSIUM CHLORIDE 10 MEQ TABLET.ER. PO (08:27)
[2017-12-09] MEDS: DULoxetine HCL 30 MG CAPSULE.DR PO ×2 (08:27→20:17)
[2017-12-09] MEDS: FUROSEMIDE 20 MG TABLET PO (08:27)
[2017-12-09] MEDS: clonazePAM 0.5 MG TABLET PO (08:27)
[2017-12-09] MEDS: LACTOBACILLUS RHAMNOSUS GG 1 CAPSULE. PO ×2 (10:33→20:17)
[2017-12-09] MEDS: traMADol 50 MG TABLET PO ×2 (11:14→21:04)
[2017-12-09] MEDS: VANCOMYCIN PER PHARMACY MC (11:17)
[2017-12-09] MEDS: IV NORMAL SALINE 1000ML BAG 1,000 ML IV (15:30)
[2017-12-09] MEDS: VANCOMYCIN 1.5 GM in IV DEXTROSE 5 %-0.45 % NACL 500 ML IV (16:15)
[2017-12-09] MEDS: CYCLOBENZAPRINE 10 MG TABLET. PO (18:17)
[2017-12-09] MEDS: DIVALPROEX EXTENDED RELEASE 500 MG TAB.ER.24H. PO (20:16)
[2017-12-09] MEDS: SIMVASTATIN 10 MG TABLET PO (20:17)
[2017-12-09] MEDS: clonazePAM 1 MG TABLET PO (20:17)
[2017-12-10] MEDS: PIPERACILLIN/TAZOBACTAM 3.375 GM in IV NORMAL SALINE 50ML 50 ML IV ×3 (00:36→11:47)
[2017-12-10] MEDS: oxyCODONE/APAP 5/325 1 TAB TABLET PO ×3 (01:10→16:42)
[2017-12-10] MEDS: VANCOMYCIN 1.5 GM in IV DEXTROSE 5 %-0.45 % NACL 500 ML IV (04:56)
[2017-12-10 04:57] LABS: ADD MAN DIFF? NO
[2017-12-10 05:15] LABS: BASO % 0 % (0-3); EOS # 0.2 x10^3/uL (0.0-0.7); EOS % 3 % (0-3); HEMATOCRIT 26.6 % (36.0-47.0); HEMOGLOBIN 8.7 g/dL (12.0-15.5); LYMPH # 1.6 x10^3/uL (1.0-4.8); LYMPH % 22 % (24-48); MEAN CORPUSCULAR HEMOGLOBIN 30 pg (25-35); MEAN CORPUSCULAR HGB CONC 33 g/dL (31-37); MEAN CORPUSCULAR VOLUME 92 fL (79-100); MONO # 0.8 x10^3/uL (0.0-1.1); MONO % 12 % (0-9); NEUT # 4.5 x10^3uL (1.8-7.7); NEUT % 63 % (31-73); PLATELET COUNT 289 x10^3/uL (140-400); RED BLOOD COUNT 2.89 x10^6/uL (3.50-5.40); RED CELL DISTRIBUTION WIDTH 14.8 % (11.5-14.5); WHITE BLOOD COUNT 7.1 x10^3/uL (4.0-11.0)
[2017-12-10 05:48] LABS: ANION GAP 6 (6-14); BLOOD UREA NITROGEN 9 mg/dL (7-20); CALCIUM 8.3 mg/dL (8.5-10.1); CARBON DIOXIDE 29 mmol/L (21-32); CHLORIDE 106 mmol/L (98-107); CREATININE 0.8 mg/dL (0.6-1.0); GFR 75.3; GLUCOSE 98 mg/dL (70-99); SODIUM 141 mmol/L (136-145)
[2017-12-10] MEDS: PANTOPRAZOLE 40 MG TABLET.DR. PO (06:12)
[2017-12-10] MEDS: traMADol 50 MG TABLET PO (06:12)
[2017-12-10] MEDS: BUDESONIDE 0.5 MG/2 ML NEBU. NEB (07:11)
[2017-12-10] MEDS: ALBUTEROL SULFATE 2.5 MG/3 ML NEBU. NEB ×3 (07:11→15:19)
[2017-12-10] MEDS: DULoxetine HCL 30 MG CAPSULE.DR PO (08:50)
[2017-12-10] MEDS: GABAPENTIN 300 MG CAPSULE. PO ×2 (08:50→14:27)
[2017-12-10] MEDS: POTASSIUM CHLORIDE 10 MEQ TABLET.ER. PO (08:50)
[2017-12-10] MEDS: FUROSEMIDE 20 MG TABLET PO (08:50)
[2017-12-10] MEDS: clonazePAM 0.5 MG TABLET PO (08:50)
[2017-12-10] MEDS: LACTOBACILLUS RHAMNOSUS GG 1 CAPSULE. PO (08:50)
[2017-12-10] MEDS: IV NORMAL SALINE 500ML BAG 500 ML IV (11:47)
[2017-12-10] MEDS: CYCLOBENZAPRINE 10 MG TABLET. PO (11:51)
[2017-12-10 16:54] LABS: VANC TR 12.2 mcg/mL (10.0-20.0)
[2017-12-10] MEDS ORDERED: CARBIDOPA/LEVODOPA 25/100MG TABLET PO (21:00)
[2017-12-13 09:15] LABS: ANTI-DS DNA 2 IU/mL (0-9)
[2017-12-13 16:13] LABS: C ANCA <1:20 titer (Neg:<1:20); P ANCA <1:20 titer (Neg:<1:20)
[2017-12-13 18:10] LABS: ANA INTERP Negative (.)
== END 2017-12-10 19:04 | disposition home or self-care (01) | DRG 871 ==
LOC: ER 08:58 → 4 NORTH 12:34
DX: A41.9 Sepsis, unspecified organism (principal); N17.0 Acute kidney failure with tubular necrosis; L03.115 Cellulitis of right lower limb; L03.116 Cellulitis of left lower limb; E78.00 Pure hypercholesterolemia, unspecified; J44.9 Chronic obstructive pulmonary disease, unspecified; F32.9 Major depressive disorder, single episode, unspecified; F41.9 Anxiety disorder, unspecified; E78.5 Hyperlipidemia, unspecified; G89.29 Other chronic pain; I77.6 Arteritis, unspecified; Z82.49 Family history of ischemic heart disease and other diseases of the circulatory system; Z90.710 Acquired absence of both cervix and uterus; Z88.8 Allergy status to other drugs, medicaments and biological substances
CPT/HCPCS: 36415; 71045; 80048; 80053; 80202; 83880; 85025; 85651; 86021; 86038; 86140; 86431; 87040; 87801; 93005; 93925; 93970; 94640; 94760; 96365; 96366; 96367; 97165-GO; 99285; 99285-25; 99406; J0690; J2270; J2405; J2543; J3370; J7030; J7040; J7613; J7626

== ENCOUNTER 2017-12-25 19:39 | Emergency (ER) | payer OTHER | END 2017-12-25 20:02 | disposition home or self-care (01) | LOC: ER 19:39 | DX: G89.29 Other chronic pain (principal); M54.5 Low back pain; E78.00 Pure hypercholesterolemia, unspecified; Z90.710 Acquired absence of both cervix and uterus; Z88.5 Allergy status to narcotic agent; Z88.8 Allergy status to other drugs, medicaments and biological substances | CPT/HCPCS: 99283 ==

== ENCOUNTER 2018-01-01 18:39 | Emergency (ER) | payer OTHER ==
[2018-01-01] MEDS: CYCLOBENZAPRINE 10 MG TABLET. PO (18:54)
== END 2018-01-01 19:03 | disposition home or self-care (01) ==
LOC: ER 18:39
DX: G89.29 Other chronic pain (principal); M54.5 Low back pain; Z76.5 Malingerer [conscious simulation]; E78.00 Pure hypercholesterolemia, unspecified; Z90.710 Acquired absence of both cervix and uterus; Z88.5 Allergy status to narcotic agent; Z88.6 Allergy status to analgesic agent
CPT/HCPCS: 99282

== ENCOUNTER 2018-01-07 22:05 | Emergency (ER) | payer OTHER ==
[2018-01-07] MEDS: ONDANSETRON ODT 4 MG TAB.RAPDIS. PO (23:09)
[2018-01-07 23:13] LABS: BILIRUBIN,URINE NEGATIVE (NEG); CLARITY,URINE CLEAR; COLOR,URINE YELLOW; GLUCOSE,URINE NEGATIVE (NEG); NITRITE,URINE NEGATIVE (NEG); PROTEIN,URINE NEGATIVE (NEG-TRACE); UROBILINOGEN,URINE 0.2 mg/dL (0.2 mg/dL)
[2018-01-07 23:27] LABS: BACTERIA,URINE 0 /HPF (0-FEW); SQUAMOUS EPITHELIAL CELL,UR FEW /LPF
== END 2018-01-08 00:10 | disposition home or self-care (01) ==
LOC: ER 01-08 00:10
DX: N39.0 Urinary tract infection, site not specified (principal); G89.29 Other chronic pain; M54.5 Low back pain; E78.00 Pure hypercholesterolemia, unspecified; F17.210 Nicotine dependence, cigarettes, uncomplicated; Z90.710 Acquired absence of both cervix and uterus; Z88.5 Allergy status to narcotic agent; Z88.8 Allergy status to other drugs, medicaments and biological substances
CPT/HCPCS: 81001; 87086; 99284; Q0162

== ENCOUNTER 2018-01-16 23:13 | Emergency (ER) | payer OTHER ==
[2018-01-17 00:50] LABS: BILIRUBIN,URINE NEGATIVE (NEG); CLARITY,URINE CLEAR; COLOR,URINE ORANGE; GLUCOSE,URINE NEGATIVE (NEG); NITRITE,URINE POSITIVE (NEG); PROTEIN,URINE NEGATIVE (NEG-TRACE)
[2018-01-17] MEDS: KETOROLAC 30 MG/ML INJ. IV (00:56)
[2018-01-17] MEDS: ORPHENADRINE CITRATE 60 MG/2 ML VIAL. IM (00:57)
[2018-01-17 00:58] LABS: BACTERIA,URINE FEW /HPF (0-FEW); RBC,URINE 0 /HPF (0-2); SQUAMOUS EPITHELIAL CELL,UR MOD /LPF
== END 2018-01-17 01:30 | disposition home or self-care (01) ==
LOC: ER 23:13
DX: M54.41 Lumbago with sciatica, right side (principal); E78.00 Pure hypercholesterolemia, unspecified; G89.29 Other chronic pain; Z90.710 Acquired absence of both cervix and uterus; Z88.5 Allergy status to narcotic agent; Z88.6 Allergy status to analgesic agent
CPT/HCPCS: 81001; 87086; 96372; 96374; 99284-25; J1885; J2360

== ENCOUNTER 2018-01-21 10:55 | Emergency (ER) | payer OTHER ==
[2018-01-21] MEDS: CYCLOBENZAPRINE 10 MG TABLET. PO (11:27)
[2018-01-21] MEDS: traMADol 50 MG TABLET PO (11:27)
== END 2018-01-21 11:55 | disposition home or self-care (01) ==
LOC: ER 11:55
DX: M54.42 Lumbago with sciatica, left side (principal); E78.00 Pure hypercholesterolemia, unspecified; G89.29 Other chronic pain; Z90.710 Acquired absence of both cervix and uterus; Z88.6 Allergy status to analgesic agent; Z88.5 Allergy status to narcotic agent; Z88.8 Allergy status to other drugs, medicaments and biological substances
CPT/HCPCS: 99283

== ENCOUNTER 2018-02-02 16:33 | Emergency (ER) | payer OTHER ==
[2018-02-02] MEDS: traMADol 50 MG TABLET PO ×2 (17:24)
== END 2018-02-02 17:26 | disposition home or self-care (01) ==
LOC: ER 16:33
DX: T39.395A Adverse effect of other nonsteroidal anti-inflammatory drugs [NSAID], initial encounter (principal); E78.00 Pure hypercholesterolemia, unspecified (principal); Z88.5 Allergy status to narcotic agent; Z88.6 Allergy status to analgesic agent; G89.29 Other chronic pain; Y92.89 Other specified places as the place of occurrence of the external cause
CPT/HCPCS: 99282

== ENCOUNTER 2018-02-10 16:04 | Emergency (ER) | payer OTHER ==
[2018-02-10] MEDS: traMADol 50 MG TABLET PO (17:05)
== END 2018-02-10 17:34 | disposition home or self-care (01) ==
LOC: ER 16:04
DX: G89.29 Other chronic pain (principal); M54.5 Low back pain; E78.00 Pure hypercholesterolemia, unspecified; Z90.710 Acquired absence of both cervix and uterus; Z88.5 Allergy status to narcotic agent; Z88.6 Allergy status to analgesic agent; Z88.8 Allergy status to other drugs, medicaments and biological substances; Z98.890 Other specified postprocedural states
CPT/HCPCS: 99282

== ENCOUNTER 2018-02-16 08:43 | Emergency (ER) | payer OTHER ==
[2018-02-16] MEDS: traMADol 50 MG TABLET PO (09:12)
== END 2018-02-16 09:15 | disposition home or self-care (01) ==
LOC: ER 09:15
DX: G89.29 Other chronic pain (principal); M54.41 Lumbago with sciatica, right side; M54.42 Lumbago with sciatica, left side; M79.605 Pain in left leg; M79.604 Pain in right leg; E78.00 Pure hypercholesterolemia, unspecified; Z90.710 Acquired absence of both cervix and uterus; Z88.5 Allergy status to narcotic agent; Z88.6 Allergy status to analgesic agent; Z88.8 Allergy status to other drugs, medicaments and biological substances; X50.0XXA Overexertion from strenuous movement or load, initial encounter; Y93.89 Activity, other specified; Y99.8 Other external cause status; Y92.89 Other specified places as the place of occurrence of the external cause
CPT/HCPCS: 99284

== ENCOUNTER 2018-02-23 09:24 | Emergency (ER) | payer OTHER ==
[2018-02-23] MEDS: traMADol 50 MG TABLET PO (09:57)
== END 2018-02-23 10:00 | disposition home or self-care (01) ==
LOC: ER 09:24
DX: G89.29 Other chronic pain (principal); M54.9 Dorsalgia, unspecified; E78.00 Pure hypercholesterolemia, unspecified; Z90.710 Acquired absence of both cervix and uterus; Z72.89 Other problems related to lifestyle
CPT/HCPCS: 99282

== ENCOUNTER 2018-03-06 13:00 | Emergency (ER) | payer OTHER ==
[2018-03-06] MEDS: diazePAM 5 MG TABLET PO (13:55)
[2018-03-06] MEDS: MORPHINE SULFATE 10 MG/ML VIAL. IM (13:58)
== END 2018-03-06 14:46 | disposition home or self-care (01) ==
LOC: ER 13:00
DX: G89.29 Other chronic pain (principal); M54.5 Low back pain; E78.00 Pure hypercholesterolemia, unspecified; J45.909 Unspecified asthma, uncomplicated; Z88.5 Allergy status to narcotic agent; Z88.8 Allergy status to other drugs, medicaments and biological substances
CPT/HCPCS: 96372; 99283; J2270

== ENCOUNTER 2018-03-15 17:23 | Emergency (ER) | payer OTHER ==
[2018-03-15] MEDS: traMADol 50 MG TABLET PO (17:42)
== END 2018-03-15 17:50 | disposition home or self-care (01) ==
LOC: ER 17:23
DX: G89.29 Other chronic pain (principal); M54.5 Low back pain; Z88.5 Allergy status to narcotic agent; Z88.8 Allergy status to other drugs, medicaments and biological substances
CPT/HCPCS: 99282

== ENCOUNTER 2018-03-24 00:29 | Emergency (ER) | payer OTHER ==
[2018-03-24] MEDS ORDERED: DEXAMETHASONE 4 MG TABLET PO (02:15)
[2018-03-24] MEDS ORDERED: traMADol 50 MG TABLET PO (02:15)
== END 2018-03-24 02:20 | disposition home or self-care (01) ==
LOC: ER 00:29
DX: G89.29 Other chronic pain (principal); M54.5 Low back pain; Z88.5 Allergy status to narcotic agent; Z88.6 Allergy status to analgesic agent; Z88.8 Allergy status to other drugs, medicaments and biological substances
CPT/HCPCS: 99283

== ENCOUNTER 2018-03-25 12:24 | Emergency (ER) | payer OTHER | END 2018-03-25 13:59 | disposition home or self-care (01) | LOC: ER 12:24 | DX: R09.89 Other specified symptoms and signs involving the circulatory and respiratory systems (principal); G89.29 Other chronic pain; M54.89 Other dorsalgia; Z88.5 Allergy status to narcotic agent; Z88.6 Allergy status to analgesic agent; Z88.8 Allergy status to other drugs, medicaments and biological substances | CPT/HCPCS: 71046; 99284 ==

== ENCOUNTER 2018-03-25 23:48 | Emergency (ER) | payer OTHER ==
[2018-03-26] MEDS: oxyCODONE IR 5 MG TABLET PO (00:42)
== END 2018-03-26 00:45 | disposition home or self-care (01) ==
LOC: ER 23:48
DX: F11.20 Opioid dependence, uncomplicated (principal); G89.29 Other chronic pain; M54.5 Low back pain; J45.909 Unspecified asthma, uncomplicated; Z88.6 Allergy status to analgesic agent
CPT/HCPCS: 99284

== ENCOUNTER 2018-04-02 20:56 | Emergency (ER) | payer OTHER ==
[2018-04-02] MEDS: KETOROLAC 60 MG/2 ML INJ. IM (21:40)
== END 2018-04-02 21:55 | disposition home or self-care (01) ==
LOC: ER 21:55
DX: G89.29 Other chronic pain (principal); M54.5 Low back pain; J45.909 Unspecified asthma, uncomplicated; Z88.6 Allergy status to analgesic agent; Z88.8 Allergy status to other drugs, medicaments and biological substances
CPT/HCPCS: 96372; 99283-25; J1885

== ENCOUNTER 2018-04-12 18:39 | Emergency (ER) | payer OTHER ==
[2018-04-12] MEDS: traMADol 50 MG TABLET PO (20:05)
== END 2018-04-12 20:35 | disposition home or self-care (01) ==
LOC: ER 18:39
DX: S51.811A Laceration without foreign body of right forearm, initial encounter (principal); S40.021A Contusion of right upper arm, initial encounter; J45.909 Unspecified asthma, uncomplicated; G89.29 Other chronic pain; Z88.5 Allergy status to narcotic agent; Z88.6 Allergy status to analgesic agent; Z88.8 Allergy status to other drugs, medicaments and biological substances; W26.8XXA Contact with other sharp object(s), not elsewhere classified, initial encounter; Y93.89 Activity, other specified; Y99.8 Other external cause status; Y92.89 Other specified places as the place of occurrence of the external cause
CPT/HCPCS: 73060; 73590; 99284

== ENCOUNTER 2018-04-17 17:01 | Emergency (ER) | payer OTHER ==
[2018-04-17] MEDS: traMADol 50 MG TABLET PO (18:00)
== END 2018-04-17 18:16 | disposition home or self-care (01) ==
LOC: ER 18:16
DX: S93.601A Unspecified sprain of right foot, initial encounter (principal); G89.29 Other chronic pain; J45.909 Unspecified asthma, uncomplicated; Z88.5 Allergy status to narcotic agent; Z88.6 Allergy status to analgesic agent; Z88.8 Allergy status to other drugs, medicaments and biological substances; W01.0XXA Fall on same level from slipping, tripping and stumbling without subsequent striking against object, initial encounter; Y93.89 Activity, other specified; Y99.8 Other external cause status; Y92.89 Other specified places as the place of occurrence of the external cause
CPT/HCPCS: 73630; 99284

== ENCOUNTER 2018-04-27 02:20 | Emergency (ER) | payer OTHER | END 2018-04-27 02:40 | disposition home or self-care (01) | LOC: ER 02:20 | DX: G89.29 Other chronic pain (principal); M54.9 Dorsalgia, unspecified; J45.909 Unspecified asthma, uncomplicated; Z88.6 Allergy status to analgesic agent | CPT/HCPCS: 99284 ==

== ENCOUNTER 2018-04-29 15:45 | Emergency (ER) | payer OTHER ==
[2018-04-29] MEDS: traMADol 50 MG TABLET PO ×2 (16:19→16:30)
[2018-04-29] MEDS: CYCLOBENZAPRINE 10 MG TABLET. PO (16:19)
== END 2018-04-29 16:55 | disposition home or self-care (01) ==
LOC: ER 16:55
DX: S93.401A Sprain of unspecified ligament of right ankle, initial encounter (principal); G89.29 Other chronic pain; M54.5 Low back pain; J45.909 Unspecified asthma, uncomplicated; Z88.6 Allergy status to analgesic agent; Z88.5 Allergy status to narcotic agent; Z88.8 Allergy status to other drugs, medicaments and biological substances; X58.XXXA Exposure to other specified factors, initial encounter; Y93.89 Activity, other specified; Y99.8 Other external cause status; Y92.89 Other specified places as the place of occurrence of the external cause
CPT/HCPCS: 73610; 99284

== ENCOUNTER 2018-05-01 15:23 | Emergency (ER) | payer OTHER ==
[2018-05-01] MEDS: traMADol 50 MG TABLET PO (15:52)
== END 2018-05-01 15:50 | disposition home or self-care (01) ==
LOC: ER 15:50
DX: G89.29 Other chronic pain (principal); M79.671 Pain in right foot; Z88.5 Allergy status to narcotic agent; Z88.6 Allergy status to analgesic agent; J45.909 Unspecified asthma, uncomplicated; Z88.8 Allergy status to other drugs, medicaments and biological substances
CPT/HCPCS: 99284

== ENCOUNTER 2018-05-05 17:41 | Emergency (ER) | payer OTHER ==
[2018-05-05] MEDS: ONDANSETRON ODT 4 MG TAB.RAPDIS. PO (18:35)
[2018-05-05] MEDS: traMADol 50 MG TABLET PO (18:35)
[2018-05-05 18:51] LABS: BILIRUBIN,URINE NEGATIVE (NEG); CLARITY,URINE CLEAR; COLOR,URINE YELLOW; GLUCOSE,URINE NEGATIVE (NEG); NITRITE,URINE NEGATIVE (NEG); PH,URINE 7.5; PROTEIN,URINE NEGATIVE (NEG-TRACE); UROBILINOGEN,URINE 0.2 mg/dL (0.2 mg/dL)
[2018-05-05 19:02] LABS: BACTERIA,URINE 0 /HPF (0-FEW)
[2018-05-05 19:03] LABS: SQUAMOUS EPITHELIAL CELL,UR FEW /LPF
== END 2018-05-05 19:14 | disposition home or self-care (01) ==
LOC: ER 17:41
DX: M79.671 Pain in right foot (principal); G89.29 Other chronic pain; J45.909 Unspecified asthma, uncomplicated; Z88.6 Allergy status to analgesic agent; Z88.5 Allergy status to narcotic agent; Z88.8 Allergy status to other drugs, medicaments and biological substances
CPT/HCPCS: 81001; 99283; Q0162

== ENCOUNTER 2018-05-06 12:19 | Emergency (ER) | payer OTHER ==
[2018-05-06 14:03] LABS: ADD MAN DIFF? NO
[2018-05-06 14:07] LABS: BASO # 0.1 x10^3/uL (0.0-0.2); BASO % 1 % (0-3); EOS # 0.2 x10^3/uL (0.0-0.7); EOS % 2 % (0-3); HEMATOCRIT 34.6 % (36.0-47.0); HEMOGLOBIN 11.5 g/dL (12.0-15.5); LYMPH # 1.8 x10^3/uL (1.0-4.8); LYMPH % 21 % (24-48); MEAN CORPUSCULAR HEMOGLOBIN 30 pg (25-35); MEAN CORPUSCULAR HGB CONC 33 g/dL (31-37); MEAN CORPUSCULAR VOLUME 90 fL (79-100); MONO # 0.5 x10^3/uL (0.0-1.1); MONO % 6 % (0-9); NEUT # 6.4 x10^3uL (1.8-7.7); NEUT % 71 % (31-73); PLATELET COUNT 353 x10^3/uL (140-400); RED BLOOD COUNT 3.86 x10^6/uL (3.50-5.40); RED CELL DISTRIBUTION WIDTH 15.8 % (11.5-14.5); WHITE BLOOD COUNT 8.9 x10^3/uL (4.0-11.0)
[2018-05-06] MEDS: IV NORMAL SALINE 1000ML BAG 1,000 ML IV (14:08)
[2018-05-06] MEDS: CYCLOBENZAPRINE 10 MG TABLET. PO (14:08)
[2018-05-06] MEDS: traMADol 50 MG TABLET PO (14:08)
[2018-05-06 14:24] LABS: BILIRUBIN,URINE NEGATIVE (NEG); CLARITY,URINE CLEAR; COLOR,URINE YELLOW; GLUCOSE,URINE NEGATIVE (NEG); NITRITE,URINE NEGATIVE (NEG); PH,URINE 6.5; PROTEIN,URINE NEGATIVE (NEG-TRACE); UROBILINOGEN,URINE 0.2 mg/dL (0.2 mg/dL)
[2018-05-06 14:41] LABS: ANION GAP 9 (6-14); BLOOD UREA NITROGEN 19 mg/dL (7-20); CALCIUM 8.8 mg/dL (8.5-10.1); CARBON DIOXIDE 27 mmol/L (21-32); CHLORIDE 103 mmol/L (98-107); CREATININE 0.9 mg/dL (0.6-1.0); GFR 65.8; GLUCOSE 89 mg/dL (70-99); POTASSIUM 4.4 mmol/L (3.5-5.1); SODIUM 139 mmol/L (136-145)
[2018-05-06 14:43] LABS: MAGNESIUM 2.3 mg/dL (1.8-2.4)
[2018-05-06 14:44] LABS: BARBITURATES NEG (NEG); BENZODIAZEPINES POS (NEG); CANNABINOIDS NEG (NEG); COCAINE NEG (NEG); METHADONE NEG (NEG); OPIATES NEG (NEG); PHENCYCLIDINE NEG (NEG)
[2018-05-06 14:51] LABS: AMPHETAMINE/METHAMPHETAMINE NEG (NEG); ETHANOL, URINE NEG (NEG)
[2018-05-06 14:52] LABS: TROPONINI < 0.017 ng/mL (0.000-0.055)
[2018-05-06 14:57] LABS: THYROID STIM HORMONE (TSH) 1.164 uIU/mL (0.358-3.74)
[2018-05-06 14:58] LABS: BACTERIA,URINE FEW /HPF (0-FEW); RBC,URINE 0 /HPF (0-2); SQUAMOUS EPITHELIAL CELL,UR FEW /LPF
[2018-05-06 15:01] LABS: NT-PRO BNP 46 pg/mL (0-124)
[2018-05-06 15:01] LABS: CKMB MASS 0.9 ng/mL (0.0-3.6); CREATINE KINASE 71 U/L (26-192)
== END 2018-05-06 15:34 | disposition home or self-care (01) ==
LOC: ER 15:34
DX: G89.29 Other chronic pain (principal); M54.41 Lumbago with sciatica, right side; M54.42 Lumbago with sciatica, left side; R42 Dizziness and giddiness; R25.2 Cramp and spasm; E78.00 Pure hypercholesterolemia, unspecified; J45.909 Unspecified asthma, uncomplicated; Z88.5 Allergy status to narcotic agent; Z88.6 Allergy status to analgesic agent; Z88.8 Allergy status to other drugs, medicaments and biological substances
CPT/HCPCS: 36415; 71045; 80048; 80307; 81001; 82553; 83735; 83880; 84443; 84484; 85025; 87086; 93005; 96360; 99285-25; J7030

== ENCOUNTER 2018-05-07 03:20 | Emergency (ER) | payer OTHER ==
[2018-05-07 03:42] LABS: ADD MAN DIFF? NO
[2018-05-07 03:44] LABS: BASO # 0.1 x10^3/uL (0.0-0.2); BASO % 1 % (0-3); EOS # 0.3 x10^3/uL (0.0-0.7); EOS % 3 % (0-3); HEMATOCRIT 32.3 % (36.0-47.0); LYMPH # 3.8 x10^3/uL (1.0-4.8); LYMPH % 39 % (24-48); MEAN CORPUSCULAR HEMOGLOBIN 31 pg (25-35); MEAN CORPUSCULAR HGB CONC 34 g/dL (31-37); MEAN CORPUSCULAR VOLUME 91 fL (79-100); MONO # 0.8 x10^3/uL (0.0-1.1); MONO % 8 % (0-9); NEUT # 4.8 x10^3uL (1.8-7.7); NEUT % 49 % (31-73); PLATELET COUNT 329 x10^3/uL (140-400); RED BLOOD COUNT 3.57 x10^6/uL (3.50-5.40); RED CELL DISTRIBUTION WIDTH 15.9 % (11.5-14.5); WHITE BLOOD COUNT 9.8 x10^3/uL (4.0-11.0)
[2018-05-07 03:56] LABS: ANION GAP 9 (6-14); BLOOD UREA NITROGEN 22 mg/dL (7-20); CALCIUM 8.3 mg/dL (8.5-10.1); CARBON DIOXIDE 23 mmol/L (21-32); CHLORIDE 106 mmol/L (98-107); CREATININE 1.1 mg/dL (0.6-1.0); GFR 52.2; GLUCOSE 96 mg/dL (70-99); POTASSIUM 3.9 mmol/L (3.5-5.1); SODIUM 138 mmol/L (136-145)
[2018-05-07] MEDS: fentaNYL PF VIAL 100 MCG/2 ML VIAL IM (04:00)
[2018-05-07] MEDS: traMADol 50 MG TABLET PO (04:04)
[2018-05-07 04:06] LABS: TROPONINI < 0.017 ng/mL (0.000-0.055)
== END 2018-05-07 04:12 | disposition home or self-care (01) ==
LOC: ER 03:20
DX: R07.89 Other chest pain (principal); R06.02 Shortness of breath; M79.671 Pain in right foot; J45.909 Unspecified asthma, uncomplicated; E78.00 Pure hypercholesterolemia, unspecified; G89.29 Other chronic pain; Z88.5 Allergy status to narcotic agent; Z88.6 Allergy status to analgesic agent; Z88.8 Allergy status to other drugs, medicaments and biological substances
CPT/HCPCS: 36415; 71045; 80048; 84484; 85025; 93005; 99285-25

== ENCOUNTER 2018-05-08 10:39 | Emergency (ER) | payer OTHER | END 2018-05-08 11:35 | disposition home or self-care (01) | LOC: ER 10:39 | DX: M79.604 Pain in right leg (principal); M79.605 Pain in left leg; R20.2 Paresthesia of skin; G89.29 Other chronic pain; E11.40 Type 2 diabetes mellitus with diabetic neuropathy, unspecified; E78.00 Pure hypercholesterolemia, unspecified; J45.909 Unspecified asthma, uncomplicated; Z88.5 Allergy status to narcotic agent; Z88.6 Allergy status to analgesic agent; Z88.8 Allergy status to other drugs, medicaments and biological substances | CPT/HCPCS: 99283 ==

== ENCOUNTER 2018-05-09 13:18 | Emergency (ER) | payer OTHER | END 2018-05-09 13:59 | disposition home or self-care (01) | LOC: ER 13:18 | DX: G89.4 Chronic pain syndrome (principal); E78.00 Pure hypercholesterolemia, unspecified; J45.909 Unspecified asthma, uncomplicated; Z88.5 Allergy status to narcotic agent; Z88.6 Allergy status to analgesic agent; Z88.8 Allergy status to other drugs, medicaments and biological substances | CPT/HCPCS: 99284 ==

== ENCOUNTER 2018-05-14 10:20 | Emergency (ER) | payer OTHER ==
[2018-05-14] MEDS: METHOCARBAMOL 500 MG TABLET PO (10:53)
== END 2018-05-14 11:00 | disposition home or self-care (01) ==
LOC: ER 10:20
DX: G89.29 Other chronic pain (principal); M54.5 Low back pain; J45.909 Unspecified asthma, uncomplicated; E78.00 Pure hypercholesterolemia, unspecified; F17.210 Nicotine dependence, cigarettes, uncomplicated; Z88.6 Allergy status to analgesic agent; Z88.8 Allergy status to other drugs, medicaments and biological substances
CPT/HCPCS: 99284

== ENCOUNTER 2018-05-17 14:19 | Emergency (ER) | payer OTHER | END 2018-05-17 15:15 | disposition home or self-care (01) | LOC: ER 14:19 | DX: R05 Cough (principal); J34.89 Other specified disorders of nose and nasal sinuses; J45.909 Unspecified asthma, uncomplicated; E78.00 Pure hypercholesterolemia, unspecified; G89.29 Other chronic pain; Z88.5 Allergy status to narcotic agent; Z88.6 Allergy status to analgesic agent; Z88.8 Allergy status to other drugs, medicaments and biological substances | CPT/HCPCS: 99284 ==

== ENCOUNTER 2018-05-24 18:02 | Emergency (ER) | payer OTHER ==
[~2018-05-24] VITALS: Ht 154.9 cm; Wt 90.7 kg
[~2018-05-24 18:02] MED LIST changes: +ACET325T9 PO; +AMIT25TA PO; +BUDE10.2 IH; +CLON0.5T11 PO; +CLON1TAB4 PO; +DIVA500T17 PO; +DULO30CA2 PO; +FURO20TA3 PO; +GABA600T2 PO; +METH4TAB2 PO; +NEOM28.32 TP; +OMEP20CA9 PO; +ONDA4TAB10 PO; +OXYC10TA PO; +PHEN-318 PO; +POTA10TA12 PO; +SULF1TAB24 PO; +VALIUM10 MG PO
[2018-05-24 18:16] VITALS: BP 155/58
--- NOTE | 2018-05-24 20:12 | PHYS DOC ---
Past Medical History Past Medical History: Asthma, High Cholesterol, Other Additional Past Medical Histor: CHRONIC BACK PAIN, CHRONIC PAIN, MED SEEKING BEHAVIOR Past Surgical History: Other Additional Past Surgical Histo: back, left arm Alcohol Use: None Drug Use: None Adult General Chief Complaint Chief Complaint: BACK PAIN OR INJURY HPI HPI Patient is a 52 year old male who presents to the emergency Department today with complaints of mid to low back pain after she slipped and fell into the bathtub today she denies any loss of consciousness or head pain. States that this happened at approximately 4 PM. She also denies any head injury. She denies any numbness, tingling, or weakness of affected extremities. is well known to the emergency department. Reports that she is allergic to Tylenol , ibuprofen and naproxen. Her pain as a 10 out of 10 on the pain scale. Review of Systems Review of Systems GI: Denies abdominal pain, nausea, vomiting, : Denies dysuria or hematuria [] Musculoskeletal: Denies neck pain; reports mid and low back pain after slip and fall into the bathtub at 1600 [] Integument: Denies rash or skin lesions [] Neurologic: Denies headache, focal weakness or sensory changes [] All other systems were reviewed and found to be within normal limits, except as documented in this note. Current Medications Current Medications Current Medications Medications (Trade) Dose Ordered Sig/[facility]y Start Time Stop Time Status Last Admin Dose Admin Tramadol HCl (Ultram) 50 mg 1X ONCE 05/24/18 20:15 05/24/18 20:16 UNV Allergies Allergies Allergies Coded Allergies Type Severity Reaction Last Updated Verified acetaminophen Allergy Intermediate 04/02/18 Yes ibuprofen Allergy Intermediate rash, TOLERATES KETOROLAC 04/08/18 Yes naproxen Allergy Intermediate rash, TOLERATES KETOROLAC 04/08/18 Yes Physical Exam Physical Exam Constitutional: Well developed, well nourished, no acute distress, non-toxic appearance, obese. [] HENT: Normocephalic, atraumatic, bilateral external ears normal, nose normal. [ ] Eyes: PERRLA, conjunctiva normal, no discharge. [] Neck: Normal range of motion, no tenderness, supple, no stridor. [] Skin: Warm, dry, no erythema, no rash. [] Back: T-spine and L-spine bony tenderness to palpation, no CVA tenderness, no bruising, no swelling. [] Extremities: No tenderness, no cyanosis, ROM intact, no edema, ambulates with a cane has a steady gait [] Neurologic: Alert and oriented X 3, normal motor function, normal sensory function, no focal deficits noted. [] Psychologic: Affect normal, judgement normal, mood normal. [] Current Patient Data Vital Signs Vital Signs Date Time Temp Pulse Resp B/P (MAP) Pulse Ox O2 Delivery O2 Flow Rate FiO2 05/24/18 18:16 98.8 100 20 155/58 (90) 98 Room Air 98.8 EKG EKG [] Radiology/Procedures Radiology/Procedures [] Course & Med Decision Making Course & Med Decision Making Pertinent Labs and Imaging studies reviewed. (See chart for details) 52-year-old female presented to the emergency room with complaints of mid and low back pain after slip and fall into the bathtub. Her vital signs are stable she is well known to the emergency department. X- rays of the T-spine and L-spine reveal no acute fracture. Her physical exam is not concerning for cauda equina, or disc herniation. She was given one Ultram while she was in the department. Advised patient that no prescription will be written for home pain medication. Encouraged patient to apply ice or heat to her areas for comfort and to be more careful at home. Patient verbalized an understanding of her discharge instructions, home care, follow-up, return to emergency room instructions with no further questions or concerns. She ambulates with a steady gait using her cane on discharge. [] Dragon Disclaimer Dragon Disclaimer This electronic medical record was generated, in whole or in part, using a voice recognition dictation system. Departure Departure Impression: Primary Impression: Back pain Additional Impressions: Accident due to mechanical fall without injury Drug-seeking behavior Disposition: HOME, SELF-CARE Condition: STABLE Referrals: NO PCP (PCP) Patient Instructions: Back Pain, Adult, [id number], Fall Prevention and Home Safety, [id number] Additional Instructions: He may apply ice or heat to sore areas, activity as tolerated. With her primary doctor in the next 1-2 days return to the ER if her symptoms worsen. Problem Qualifiers Primary Impression: Back pain Back pain location: thoracic back pain Chronicity: acute Back pain laterality: midline Qualified Codes: M54.6 - Pain in thoracic spine Additional Impressions: Accident due to mechanical fall without injury Encounter type: initial encounter Qualified Codes: W19.XXXA - Unspecified fall, initial encounter JEOVANNY STAHL MANAGER INTERNAL May 24, 2018 20:12
[2018-05-24] MEDS ORDERED: traMADol 50 MG TABLET PO ONE (20:45)
--- NOTE | 2018-05-24 20:54 | RAD ---
Indication: Fall with upper and lower back pain. TECHNIQUE: 3 views of the lumbar spine and 3 views of the thoracic spine COMPARISON: None FINDINGS: Lumbar spine: Lumbar spine demonstrates straightening. This could be due to muscle spasm or positioning. No compression deformities. Multilevel intervertebral disc space narrowing is seen with endplate sclerosis and lower lumbar spine facet arthropathy. SI joints within normal limits. There are 5 lumbar type vertebral bodies. Thoracic spine: There is very subtle levoscoliosis of the lower thoracic spine. No compression deformities. Heart is normal in size. Lungs are clear. IMPRESSION: 1. No compression deformities. 2. Multilevel lumbar spine degenerative disc disease with lower lumbar spine facet arthropathy. Depending on the clinical suspicion, further evaluation with CT recommended Electronically signed by: Warren Jerez DO (05/24/2018 8:50 PM) [facility]
[2018-05-29] MEDS ORDERED: LIDO700A39 TD (13:19)
[2018-05-29] MEDS ORDERED: TRAM50TA PO (13:19)
== END 2018-05-24 20:25 | disposition home or self-care (01) ==
LOC: ER 18:02
DX: M54.6 Pain in thoracic spine (principal); Z76.5 Malingerer [conscious simulation]; M54.5 Low back pain; G89.29 Other chronic pain; E78.00 Pure hypercholesterolemia, unspecified; J45.909 Unspecified asthma, uncomplicated; Z98.890 Other specified postprocedural states; Z88.5 Allergy status to narcotic agent; Z88.6 Allergy status to analgesic agent; Z88.8 Allergy status to other drugs, medicaments and biological substances; W18.2XXA Fall in (into) shower or empty bathtub, initial encounter; Y93.E8 Activity, other personal hygiene; Y92.89 Other specified places as the place of occurrence of the external cause; Y99.8 Other external cause status
CPT/HCPCS: 72072; 72100; 99284

== ENCOUNTER 2018-05-26 17:47 | Emergency (ER) | payer OTHER ==
[~2018-05-26] VITALS: Ht 165.1 cm; Wt 90.7 kg
[2018-05-26 19:18] VITALS: BP 129/60
--- NOTE | 2018-05-26 19:20 | PHYS DOC ---
Past Medical History Past Medical History: Asthma, High Cholesterol, Other Additional Past Medical Histor: CHRONIC BACK PAIN, CHRONIC PAIN, MED SEEKING BEHAVIOR Past Surgical History: Other Additional Past Surgical Histo: back, left arm Alcohol Use: None Drug Use: None Adult General Chief Complaint Chief Complaint: ABDOMINAL PAIN HPI HPI Patient is a 52 year old female presents to the ED complaining of back pain times one day. Patient states that she has a history of chronic back pain. Patient well known to this ED. Patient states that she was moving and when she went to lift her bed up she felt a pull in her lower back. Describes the pain as sharp. Rates the pain as 8 out of 10. Patient able to ambulate without assistance. Denies weakness, paresthesias, fever, rating pain, bowel/bladder changes, saddle anesthesia, abdominal pain, nausea/vomiting, chest pain or shortness of breath. Review of Systems Review of Systems Constitutional: Denies fever or chills [] Eyes: Denies change in visual acuity, redness, or eye pain [] HENT: Denies nasal congestion or sore throat [] Respiratory: Denies cough or shortness of breath [] Cardiovascular: No additional information not addressed in HPI [] GI: Denies abdominal pain, nausea, vomiting, bloody stools or diarrhea [] : Denies dysuria or hematuria [] Musculoskeletal: Complains of back pain. Denies joint pain [] Integument: Denies rash or skin lesions [] Neurologic: Denies headache, focal weakness or sensory changes [] All other systems were reviewed and found to be within normal limits, except as documented in this note. Current Medications Current Medications Current Medications Medications (Trade) Dose Ordered Sig/[facility] Start Time Stop Time Status Last Admin Dose Admin Tramadol HCl (Ultram) 50 mg 1X ONCE 05/26/18 19:30 05/26/18 19:30 DC 05/26/18 19:28 50 MG Allergies Allergies Allergies Coded Allergies Type Severity Reaction Last Updated Verified acetaminophen Allergy Intermediate 04/02/18 Yes ibuprofen Allergy Intermediate rash, TOLERATES KETOROLAC 04/08/18 Yes naproxen Allergy Intermediate rash, TOLERATES KETOROLAC 04/08/18 Yes Physical Exam Physical Exam Constitutional: Well developed, well nourished, no acute distress, non-toxic appearance. [] HENT: Normocephalic, atraumatic Neck: Normal range of motion, no tenderness, supple, no stridor. [] Cardiovascular:Heart rate regular rhythm, no murmur [] Lungs & Thorax: Bilateral breath sounds clear to auscultation [] Abdomen: Bowel sounds normal, soft, no tenderness, no masses, no pulsatile masses. [] Skin: Warm, dry, no erythema, no rash. [] Back: no bony tenderness, FROM. NV intact. no CVA tenderness. [] Extremities: No tenderness, no cyanosis, no clubbing, ROM intact, no edema. [] Neurologic: Alert and oriented X 3, normal motor function, normal sensory function, no focal deficits noted. [] Psychologic: Affect normal, judgement normal, mood normal. [] Current Patient Data Vital Signs Vital Signs Date Time Temp Pulse Resp B/P (MAP) Pulse Ox O2 Delivery O2 Flow Rate FiO2 05/26/18 19:28 16 05/26/18 19:18 98.7 109 129/60 (83) 97 Room Air 98.7 EKG EKG [] Radiology/Procedures Radiology/Procedures [] Course & Med Decision Making Course & Med Decision Making Pertinent Labs and Imaging studies reviewed. (See chart for details) []No bony tenderness. No x-ray warranted. No focal neural deficits. Patient able to ambulate without assistance. Patient given tramadol in the ED. No prescriptions given outpatient. Discussed symptomatic treatment and physical therapy exercises. Discussed follow-up with orthopedics if pain persists. Provided contact information/education. Discussed reasons to return to the ED. Patient understands and agrees with plan. Family at bedside. Dragon Disclaimer Dragon Disclaimer This electronic medical record was generated, in whole or in part, using a voice recognition dictation system. Departure Departure Impression: Primary Impression: Back pain Disposition: HOME, SELF-CARE Condition: IMPROVED Referrals: NO PCP (PCP) OMAR ROPER II, MD Patient Instructions: Back Pain, Adult PEPPER LALA May 26, 2018 19:20
[2018-05-26] MEDS ORDERED: traMADol 50 MG TABLET PO ONE (19:30)
[2018-05-29] MEDS ORDERED: TRAM50TA PO (13:19)
[2018-05-29] MEDS ORDERED: LIDO700A39 TD (13:19)
== END 2018-05-26 19:29 | disposition home or self-care (01) ==
LOC: ER 17:47
DX: M54.9 Dorsalgia, unspecified (principal); G89.29 Other chronic pain; J45.909 Unspecified asthma, uncomplicated; E78.00 Pure hypercholesterolemia, unspecified; Z88.6 Allergy status to analgesic agent; Z88.8 Allergy status to other drugs, medicaments and biological substances
CPT/HCPCS: 99281

== ENCOUNTER 2018-06-08 20:22 | Emergency (ER) | payer OTHER ==
[~2018-06-08] VITALS: Ht 162.6 cm; Wt 90.7 kg
[~2018-06-08 20:22] MED LIST changes: +LIDO700A39 TD
[2018-06-08 20:45] VITALS: BP 132/82
--- NOTE | 2018-06-08 21:30 | PHYS DOC ---
Past Medical History Past Medical History: Asthma, High Cholesterol, Other Additional Past Medical Histor: CHRONIC BACK PAIN, CHRONIC PAIN, MED SEEKING BEHAVIOR Past Surgical History: Other Additional Past Surgical Histo: back, left arm Alcohol Use: None Drug Use: None Adult General Chief Complaint Chief Complaint: COUGH HPI HPI Patient is a 52 year old female who presents with chronic low back pain. Patient states she had physical therapy today and does not have any medication. Patient is ambulatory and rates the pain is 7 out of 10. She has a slight cough. Patient denies running fever or any other upper respiratory symptoms. Review of Systems Review of Systems Constitutional: Denies fever or chills [] Eyes: Denies change in visual acuity, redness, or eye pain [] HENT: Denies nasal congestion or sore throat [] Respiratory: Cough. Denies shortness of breath [] Cardiovascular: No additional information not addressed in HPI [] GI: Denies abdominal pain, nausea, vomiting, bloody stools or diarrhea [] : Denies dysuria or hematuria [] Musculoskeletal: Chronic low back pain. Denies joint pain [] Integument: Denies rash or skin lesions [] Neurologic: Denies headache, focal weakness or sensory changes [] Endocrine: Denies polyuria or polydipsia [] All other systems were reviewed and found to be within normal limits, except as documented in this note. Current Medications Current Medications Current Medications Medications (Trade) Dose Ordered Sig/[facility] Start Time Stop Time Status Last Admin Dose Admin Tramadol HCl (Ultram) 50 mg 1X ONCE 06/08/18 21:45 06/08/18 21:46 DC 06/08/18 21:45 50 MG Allergies Allergies Allergies Coded Allergies Type Severity Reaction Last Updated Verified acetaminophen Allergy Intermediate 04/02/18 Yes ibuprofen Allergy Intermediate rash, TOLERATES KETOROLAC 04/08/18 Yes naproxen Allergy Intermediate rash, TOLERATES KETOROLAC 04/08/18 Yes Physical Exam Physical Exam Constitutional: Well developed, well nourished, no acute distress, non-toxic appearance. [] HENT: Normocephalic, atraumatic, bilateral external ears normal, oropharynx moist, no oral exudates, nose normal. [] Eyes: PERRLA, EOMI, conjunctiva normal, no discharge. [] Neck: Normal range of motion, no tenderness, supple, no stridor. [] Cardiovascular:Heart rate regular rhythm, no murmur [] Lungs & Thorax: Bilateral breath sounds clear to auscultation [] Abdomen: Bowel sounds normal, soft, no tenderness, no masses, no pulsatile masses. [] Skin: Warm, dry, no erythema, no rash. [] Back: No tenderness, no CVA tenderness. Chronic low back pain. No tenderness or radiation.[] Extremities: No tenderness, no cyanosis, no clubbing, ROM intact, no edema. [] Neurologic: Alert and oriented X 3, normal motor function, normal sensory function, no focal deficits noted. [] Psychologic: Affect normal, judgement normal, mood normal. [] Current Patient Data Vital Signs Vital Signs Date Time Temp Pulse Resp B/P (MAP) Pulse Ox O2 Delivery O2 Flow Rate FiO2 06/08/18 21:45 18 Room Air 06/08/18 20:45 99.1 92 132/82 (99) 98 99.1 EKG EKG [] Radiology/Procedures Radiology/Procedures [] Course & Med Decision Making Course & Med Decision Making Patient is alert and oriented. On examination patient states that she has her chronic low back pain after physical therapy today and is out of pain medication. Patient rates her pain a 7 out of 10 and states it does not radiate. Patient is ambulatory and has steady gait. States that she also has a slight cough but states that she does not have any upper respiratory infection symptoms. Patient's bilateral tympanic membranes are pearly white. Patient's throat is pink and without exudates. Patient's lungs are clear to auscultation. Patient has no nasal congestion or sinus tenderness. Patient speaks in full sentences and is in no respiratory distress. Given 1 tramadol. Patient is not sent home with any prescriptions. Patient is agreeable to this discharge plan. Patient is told to follow-up with her primary care for pain medications. [] Dragon Disclaimer Dragon Disclaimer This electronic medical record was generated, in whole or in part, using a voice recognition dictation system. Departure Departure Impression: Primary Impression: Chronic back pain Ruled Out: Chronic depression Disposition: HOME, SELF-CARE Condition: STABLE Referrals: MARITZA ALCARAZ MD (PCP) Patient Instructions: Chronic Back Pain Additional Instructions: Follow up with your primary care. Problem Qualifiers Primary Impression: Chronic back pain Back pain location: low back pain Back pain laterality: bilateral Sciatica presence: unspecified whether sciatica present Qualified Codes: M54.5 - Low back pain; G89.29 - Other chronic pain RICHARD MCELROY STOCK HOUSE WORKER Jun 08, 2018 21:30
[2018-06-08] MEDS ORDERED: traMADol 50 MG TABLET PO ONE (21:45)
== END 2018-06-08 22:32 | disposition home or self-care (01) ==
LOC: ER 20:22
DX: G89.29 Other chronic pain (principal); M54.5 Low back pain; R05 Cough; J45.909 Unspecified asthma, uncomplicated; E78.00 Pure hypercholesterolemia, unspecified; Z98.890 Other specified postprocedural states; Z88.5 Allergy status to narcotic agent; Z88.6 Allergy status to analgesic agent; Z88.8 Allergy status to other drugs, medicaments and biological substances; Z76.5 Malingerer [conscious simulation]
CPT/HCPCS: 99284

== ENCOUNTER 2018-06-09 17:39 | Emergency (ER) | payer OTHER ==
[~2018-06-09] VITALS: Ht 165.1 cm; Wt 90.7 kg
[2018-06-09 18:00] VITALS: BP 125/79
--- NOTE | 2018-06-09 18:13 | PHYS DOC ---
Past Medical History Past Medical History: Asthma, High Cholesterol, Other Additional Past Medical Histor: CHRONIC BACK PAIN, CHRONIC PAIN, MED SEEKING BEHAVIOR Past Surgical History: Other Additional Past Surgical Histo: back, left arm Alcohol Use: None Drug Use: None Adult General Chief Complaint Chief Complaint: ANKLE PROBLEM [facility] HPI Patient is a 52 year old female who presents with complaints of ankle pain. The patient states that she tripped and injured her left ankle. The patient is a frequent visitor to this emergency department and was seen last night for complaints of back pain. The patient always walks with a cane. She denies any back pain today. She is bearing full weight on her extremities. Review of Systems Review of Systems Constitutional: Denies fever or chills [] Respiratory: Denies cough or shortness of breath [] Cardiovascular: No additional information not addressed in [facility] [] GI: Denies abdominal pain, nausea, vomiting, bloody stools or diarrhea [] : Denies dysuria or hematuria [] Musculoskeletal: See history of present illness Integument: Denies rash or skin lesions [] Neurologic: Denies headache, focal weakness or sensory changes [] Endocrine: Denies polyuria or polydipsia [] All other systems were reviewed and found to be within normal limits, except as documented in this note. Allergies Allergies Allergies Coded Allergies Type Severity Reaction Last Updated Verified acetaminophen Allergy Intermediate 04/02/18 Yes ibuprofen Allergy Intermediate rash, TOLERATES KETOROLAC 04/08/18 Yes naproxen Allergy Intermediate rash, TOLERATES KETOROLAC 04/08/18 Yes Physical Exam Physical Exam Constitutional: Well developed, well nourished, no acute distress, non-toxic appearance. [] HENT: Normocephalic, atraumatic, bilateral external ears normal, oropharynx moist, no oral exudates, nose normal. [] Eyes: PERRLA, EOMI, conjunctiva normal, no discharge. [] Neck: Normal range of motion, no tenderness, supple, no stridor. [] Cardiovascular:Heart rate regular rhythm, no murmur [] Lungs & Thorax: Bilateral breath sounds clear to auscultation [] Abdomen: Bowel sounds normal, soft, no tenderness, no masses, no pulsatile masses. [] Skin: Warm, dry, no erythema, no rash. [] Back: No tenderness, no CVA tenderness. [] Extremities: Complains of tenderness to left ankle with no deformity noted, no cyanosis, no clubbing, ROM intact, no edema or ecchymosis noted. [] Neurologic: Alert and oriented X 3, normal motor function, normal sensory function, no focal deficits noted. [] Psychologic: Affect normal, judgement normal, mood normal. [] Current Patient Data Vital Signs Vital Signs Date Time Temp Pulse Resp B/P (MAP) Pulse Ox O2 Delivery O2 Flow Rate FiO2 06/09/18 18:00 99.2 94 18 125/79 (94) 96 Room Air 99.2 EKG EKG [] Radiology/Procedures Radiology/Procedures [] Course & Med Decision Making Course & Med Decision Making Pertinent Labs and Imaging studies reviewed. (See chart for details) [] Dragon Disclaimer Dragon Disclaimer This electronic medical record was generated, in whole or in part, using a voice recognition dictation system. Departure Departure Impression: Primary Impression: Drug-seeking behavior Disposition: 01 HOME, SELF-CARE Condition: STABLE Referrals: MARITZA ALCARAZ MD (PCP) Patient Instructions: Drug Abuse and Addiction-[facility] Additional Instructions: You may use hot compresses for your pain. You may take your at home pain medication. Follow-up with your regular doctor for further medical needs. SAGAR TABOR APRN Jun 09, 2018 18:13
== END 2018-06-09 18:20 | disposition home or self-care (01) ==
LOC: ER 17:39
DX: Z76.5 Malingerer [conscious simulation] (principal); M25.572 Pain in left ankle and joints of left foot; G89.29 Other chronic pain; E78.00 Pure hypercholesterolemia, unspecified; J45.909 Unspecified asthma, uncomplicated; Z98.890 Other specified postprocedural states; Z88.6 Allergy status to analgesic agent; Z88.5 Allergy status to narcotic agent; Z88.8 Allergy status to other drugs, medicaments and biological substances; W01.0XXA Fall on same level from slipping, tripping and stumbling without subsequent striking against object, initial encounter; Y93.89 Activity, other specified; Y92.89 Other specified places as the place of occurrence of the external cause; Y99.8 Other external cause status
CPT/HCPCS: 99284

== ENCOUNTER 2018-06-11 12:28 | Emergency (ER) | payer OTHER ==
[~2018-06-11] VITALS: Ht 167.6 cm; Wt 90.7 kg
[2018-06-11 12:34] VITALS: BP 149/81
--- NOTE | 2018-06-11 12:52 | PHYS DOC ---
Past Medical History Past Medical History: Asthma, High Cholesterol, Other Additional Past Medical Histor: CHRONIC BACK PAIN, CHRONIC PAIN, MED SEEKING BEHAVIOR Past Surgical History: Other Additional Past Surgical Histo: back, left arm Additional Information: 3-5 cigarettes daily Alcohol Use: None Drug Use: None Adult General Chief Complaint Chief Complaint: BACK PAIN OR INJURY [facility] Patient is a 52 year old female who presents with complaints of back pain and dysuria. The patient is a well-known patient to this facility with frequent drug -seeking behavior. She is requesting tramadol. She has been told by multiple providers that she is not to check into the emergency department for drug- seeking behavior. Review of Systems Review of Systems Constitutional: Denies fever or chills [] Eyes: Denies change in visual acuity, redness, or eye pain [] HENT: Denies nasal congestion or sore throat [] Respiratory: Denies cough or shortness of breath [] Cardiovascular: No additional information not addressed in HPI [] Musculoskeletal: See history of present illness Integument: Denies rash or skin lesions [] Neurologic: Denies headache, focal weakness or sensory changes [] Endocrine: Denies polyuria or polydipsia [] All other systems were reviewed and found to be within normal limits, except as documented in this note. Allergies Allergies Allergies Coded Allergies Type Severity Reaction Last Updated Verified acetaminophen Allergy Intermediate 04/02/18 Yes ibuprofen Allergy Intermediate rash, TOLERATES KETOROLAC 04/08/18 Yes naproxen Allergy Intermediate rash, TOLERATES KETOROLAC 04/08/18 Yes Physical Exam Physical Exam Constitutional: Well developed, well nourished, no acute distress, non-toxic appearance. [] Cardiovascular:Heart rate regular rhythm, no murmur [] Lungs & Thorax: Bilateral breath sounds clear to auscultation [] Abdomen: Bowel sounds normal, soft, no tenderness, no masses, no pulsatile masses. [] Skin: Warm, dry, no erythema, no rash. [] Back: See history of present illness Extremities: No tenderness, no cyanosis, no clubbing, ROM intact, no edema. [] Neurologic: Alert and oriented X 3, normal motor function, normal sensory function, no focal deficits noted. [] Psychologic: Affect normal, judgement normal, mood normal. [] Current Patient Data Vital Signs Vital Signs Date Time Temp Pulse Resp B/P (MAP) Pulse Ox O2 Delivery O2 Flow Rate FiO2 06/11/18 12:34 98.8 97 16 149/81 (103) 99 Room Air 98.8 Lab Values Laboratory Tests Test 06/11/18 11:55 Urine Collection Type Unknown Urine Color Yellow Urine Clarity Clear Urine pH 7.5 Urine Specific [place] 1.020 Urine Protein Negative mg/dL (NEG-TRACE) Urine Glucose (UA) Negative mg/dL (NEG) Urine Ketones (Stick) Negative mg/dL (NEG) Urine Blood Negative (NEG) Urine Nitrite Negative (NEG) Urine Bilirubin Negative (NEG) Urine Urobilinogen Dipstick 1.0 mg/dL (0.2 mg/dL) Urine Leukocyte Esterase Trace (NEG) Urine RBC 0 /HPF (0-2) Urine WBC Rare /HPF (0-4) Urine Squamous Epithelial Cells Few /LPF Urine Bacteria 0 /HPF (0-FEW) Urine Mucus Slight /LPF EKG EKG [] Radiology/Procedures Radiology/Procedures [] Course & Med Decision Making Course & Med Decision Making Pertinent Labs and Imaging studies reviewed. (See chart for details) [] Dragon Disclaimer Dragon Disclaimer This electronic medical record was generated, in whole or in part, using a voice recognition dictation system. Departure Departure Impression: Primary Impression: Drug-seeking behavior Disposition: HOME, SELF-CARE Condition: STABLE Referrals: MARITZA ALCARAZ MD (PCP) Patient Instructions: Chronic Back Pain Additional Instructions: Follow up with your primary care provider for further evaluation of your chronic back pain. SAGAR TABOR APRN Jun 11, 2018 12:52
[2018-06-11 13:16] LABS: BILIRUBIN,URINE NEGATIVE (NEG); CLARITY,URINE CLEAR; COLOR,URINE YELLOW; NITRITE,URINE NEGATIVE (NEG); PH,URINE 7.5; PROTEIN,URINE NEGATIVE (NEG-TRACE)
[2018-06-11 13:24] LABS: BACTERIA,URINE 0 /HPF (0-FEW); RBC,URINE 0 /HPF (0-2); SQUAMOUS EPITHELIAL CELL,UR FEW /LPF; WBC,URINE RARE /HPF (0-4)
== END 2018-06-11 13:37 | disposition home or self-care (01) ==
LOC: ER 12:28
DX: Z76.5 Malingerer [conscious simulation] (principal); G89.29 Other chronic pain; M54.9 Dorsalgia, unspecified; R30.0 Dysuria; F17.210 Nicotine dependence, cigarettes, uncomplicated; Z88.6 Allergy status to analgesic agent; Z88.5 Allergy status to narcotic agent
CPT/HCPCS: 81001; 87086; 99284

== ENCOUNTER 2018-06-17 22:22 | Emergency (ER) | payer OTHER ==
[~2018-06-17] VITALS: Ht 165.1 cm; Wt 68.0 kg
[2018-06-17 22:25] VITALS: BP 152/84
--- NOTE | 2018-06-17 22:39 | PHYS DOC ---
Past Medical History Past Medical History: Asthma, High Cholesterol, Other Additional Past Medical Histor: CHRONIC BACK PAIN, CHRONIC PAIN, MED SEEKING BEHAVIOR Past Surgical History: Other Additional Past Surgical Histo: back, left arm Alcohol Use: None Drug Use: None Adult General Chief Complaint Chief Complaint: COUGH HPI HPI Patient is a 52 year old female brought in by ambulance with cold symptoms as well as low back pain. She is in this emergency room quite frequently. She says the back pain as a same as usual but she does not have any pain medicines at home. She says "please give me 1". She has had dry cough as well as a runny nose no fever no chest pain. Review of Systems Review of Systems Constitutional: Denies fever or chills [] Eyes: Denies change in visual acuity, redness, or eye pain [] HENT: Denies nasal congestion or sore throat [] Respiratory: Denies cough or shortness of breath [] Cardiovascular: No additional information not addressed in HPI [] GI: Denies abdominal pain, nausea, vomiting, bloody stools or diarrhea [] Integument: Denies rash or skin lesions [] All other systems were reviewed and found to be within normal limits, except as documented in this note. Allergies Allergies Allergies Coded Allergies Type Severity Reaction Last Updated Verified acetaminophen Allergy Intermediate 04/02/18 Yes ibuprofen Allergy Intermediate rash, TOLERATES KETOROLAC 04/08/18 Yes naproxen Allergy Intermediate rash, TOLERATES KETOROLAC 04/08/18 Yes Physical Exam Physical Exam Constitutional: Well developed, well nourished, no acute distress, non-toxic appearance. [] HENT: Normocephalic, atraumatic, bilateral external ears normal, oropharynx moist, no oral exudates, nose normal. [] Eyes: PERRLA, EOMI, conjunctiva normal, no discharge. [] Neck: Normal range of motion, no tenderness, supple, no stridor. [] Cardiovascular:Heart rate regular rhythm, no murmur [] Lungs & Thorax: Bilateral breath sounds clear to auscultation [] Abdomen: Bowel sounds normal, soft, no tenderness, no masses, no pulsatile masses. [] Skin: Warm, dry, no erythema, no rash. [] Back: mild paraspinous ttp. Extremities: No tenderness, no cyanosis, no clubbing, ROM intact, no edema. [] Neurologic: Alert and oriented X 3, normal motor function, normal sensory function, no focal deficits noted. [] EKG EKG [] Radiology/Procedures Radiology/Procedures [] Course & Med Decision Making Course & Med Decision Making Pertinent Labs and Imaging studies reviewed. (See chart for details) Chronic low back pain and URI symptoms frequent ER user suspect drug-seeking behavior. In fact she did request stronger pain medication the emergency room. She is neurologically intact she was encouraged to HER primary care doctor as well as I did encourage her that daily or frequent ER user for chronic conditions is not appropriate []mild tachycardia could be fromc hronic pain or agitation pt is frustrated about our conversation, there is no fever. Dragon Disclaimer Dragon Disclaimer This electronic medical record was generated, in whole or in part, using a voice recognition dictation system. Departure Departure Impression: Primary Impression: Drug-seeking behavior Additional Impression: Back pain Disposition: HOME, SELF-CARE Condition: IMPROVED Referrals: MARITZA ALCARAZ MD (PCP) Patient Instructions: Viral Syndrome Problem Qualifiers KATHY CASON MD Jun 17, 2018 22:39
[2018-06-17] MEDS ORDERED: ACETAMINOPHEN 500 MG TABLET PO ONE (23:00)
== END 2018-06-17 22:56 | disposition home or self-care (01) ==
LOC: ER 22:22
DX: M54.5 Low back pain (principal); J45.909 Unspecified asthma, uncomplicated; Z76.5 Malingerer [conscious simulation]; Z88.6 Allergy status to analgesic agent
CPT/HCPCS: 99282

== ENCOUNTER 2018-06-21 12:41 | Emergency (ER) | payer OTHER ==
[~2018-06-21] VITALS: Ht 172.7 cm; Wt 68.0 kg
[2018-06-21 12:46] VITALS: BP 159/91
[2018-06-21] MEDS ORDERED: traMADol 50 MG TABLET PO ONE (13:15)
--- NOTE | 2018-06-21 13:32 | PHYS DOC ---
Past Medical History Past Medical History: Asthma, High Cholesterol, Other Additional Past Medical Histor: CHRONIC BACK PAIN, CHRONIC PAIN, MED SEEKING BEHAVIOR Past Surgical History: Other Additional Past Surgical Histo: back, left arm Alcohol Use: None Drug Use: None Adult General Chief Complaint Chief Complaint: PAIN CONTROL HPI HPI Patient is a 52 year old female who presents to the emergency Department today with request for pain medication. Patient states she has been doing physical therapy and that she saw her primary care doctor last week and was prescribed Tylenol for her chronic pain. Patient denies any new injury. She denies any numbness, tingling, weakness, or recent fall. She requests one tramadol at this time. She currently reports that her pain as a 10 out of 10 on the pain scale in both of her feet and ankles. Review of Systems Review of Systems Constitutional: Denies fever or chills [] Musculoskeletal: Denies back pain alvaro pain in bilateral feet and ankles. Integument: Denies rash or skin lesions [] Neurologic: Denies headache, focal weakness or sensory changes [] All other systems were reviewed and found to be within normal limits, except as documented in this note. Current Medications Current Medications Current Medications Medications (Trade) Dose Ordered Sig/Jayy Start Time Stop Time Status Last Admin Dose Admin Tramadol HCl (Ultram) 50 mg 1X ONCE 06/21/18 13:15 06/21/18 13:16 DC 06/21/18 13:14 50 MG Allergies Allergies Allergies Coded Allergies Type Severity Reaction Last Updated Verified ibuprofen Allergy Intermediate rash, TOLERATES KETOROLAC 04/08/18 Yes naproxen Allergy Intermediate rash, TOLERATES KETOROLAC 04/08/18 Yes Physical Exam Physical Exam Constitutional: Well developed, well nourished, no acute distress, non-toxic appearance, obese. [] HENT: Normocephalic, atraumatic, bilateral external ears normal, nose normal. [] Eyes: Normal Skin: Warm, dry, no erythema, no rash. [] Extremities: No tenderness, no cyanosis, no clubbing, ROM intact, no edema. [] Neurologic: Alert and oriented X 3, normal motor function, normal sensory function, no focal deficits noted. [] Psychologic: Affect normal, judgement normal, mood normal. [] Current Patient Data Vital Signs Vital Signs Date Time Temp Pulse Resp B/P (MAP) Pulse Ox O2 Delivery O2 Flow Rate FiO2 06/21/18 12:46 98.6 98 22 95 Room Air 98.6 EKG EKG [] Radiology/Procedures Radiology/Procedures [] Course & Med Decision Making Course & Med Decision Making Pertinent Labs and Imaging studies reviewed. (See chart for details) Patient was given 1 tramadol in the emergency department. Diagnosis is chronic pain, drug-seeking behavior. Patient given the phone number for the pain clinic to follow-up regarding her chronic pain. Patient verbalized an understanding of home care, medications, follow-up, and return to ED instructions and was in agreement with the plan of care. [] Dragon Disclaimer Dragon Disclaimer This electronic medical record was generated, in whole or in part, using a voice recognition dictation system. Departure Departure Impression: Primary Impression: Chronic pain Additional Impression: Drug-seeking behavior Disposition: 01 HOME, SELF-CARE Condition: STABLE Referrals: MARITZA ALCARAZ MD (PCP) Patient Instructions: Chronic Pain Management-Brief Additional Instructions: Call the pain clinic at [phone] to schedule an appointment for management of her chronic pain symptoms. Return to the ER if her symptoms worsen. Problem Qualifiers Primary Impression: Chronic pain Chronic pain type: other chronic pain Qualified Codes: G89.29 - Other chronic pain JEOVANNY STAHL [employer] EFFECTS ARTIST Jun 21, 2018 13:32
== END 2018-06-21 13:55 | disposition home or self-care (01) ==
LOC: ER 12:41
DX: G89.29 Other chronic pain (principal); Z76.5 Malingerer [conscious simulation]; M25.571 Pain in right ankle and joints of right foot; M25.572 Pain in left ankle and joints of left foot; E78.00 Pure hypercholesterolemia, unspecified; J45.909 Unspecified asthma, uncomplicated; Z88.5 Allergy status to narcotic agent; Z88.8 Allergy status to other drugs, medicaments and biological substances
CPT/HCPCS: 99282

== ENCOUNTER 2018-07-03 11:45 | Emergency (ER) | payer OTHER ==
[~2018-07-03] VITALS: Ht 167.6 cm; Wt 68.0 kg
[2018-07-03 11:56] VITALS: BP 150/100
[2018-07-03] MEDS ORDERED: METH4TAB2 PO (12:17)
[2018-07-03] MEDS ORDERED: CYCL10TA2 PO (12:17)
--- NOTE | 2018-07-03 12:17 | PHYS DOC ---
Past Medical History Past Medical History: Asthma, High Cholesterol, Other Additional Past Medical Histor: CHRONIC BACK PAIN, CHRONIC PAIN, MED SEEKING BEHAVIOR Past Surgical History: Other Additional Past Surgical Histo: back, left arm Alcohol Use: None Drug Use: None Adult General Chief Complaint Chief Complaint: BACK PAIN OR INJURY HPI HPI Patient is a 52 year old female with history of asthma, high cholesterol, who presents today with exacerbation of chronic bilateral low back pain radiating to bilateral lower extremities. Patient states the pain got worse this morning. Patient denies any known injury. Patient states the pain is worse on ambulation. She states she has an MRI for her lumbar spine scheduled in the course of this week. Patient denies any loss of bowel bladder function. Denies any weakness. Review of Systems Review of Systems Constitutional: Denies fever or chills [] GI: Denies abdominal pain, nausea, vomiting, bloody stools or diarrhea [] : Denies dysuria or hematuria [] Musculoskeletal: Reports bilateral low back pain radiating to bilateral lower extremities, chronic. Integument: Denies rash or skin lesions [] Neurologic: Denies headache, focal weakness or sensory changes [] All other systems were reviewed and found to be within normal limits, except as documented in this note. Current Medications Current Medications Current Medications Medications (Trade) Dose Ordered Sig/Jayy Start Time Stop Time Status Last Admin Dose Admin Cyclobenzaprine HCl (Flexeril) 10 mg 1X ONCE 07/03/18 12:30 07/03/18 12:31 DC 07/03/18 12:24 10 MG Tramadol HCl (Ultram) 100 mg 1X ONCE 07/03/18 12:30 07/03/18 12:31 DC 07/03/18 12:24 100 MG Allergies Allergies Allergies Coded Allergies Type Severity Reaction Last Updated Verified ibuprofen Allergy Intermediate rash, TOLERATES KETOROLAC 04/08/18 Yes naproxen Allergy Intermediate rash, TOLERATES KETOROLAC 04/08/18 Yes Physical Exam Physical Exam Constitutional: Well developed, well nourished, no acute distress, non-toxic appearance. [] Abdomen: Bowel sounds normal, soft, no tenderness, no masses, no pulsatile masses. [] Skin: Warm, dry, no erythema, no rash. [] Back: Diffuse paraspinal muscle tenderness bilateral lumbar spine, no midline lumbar spine tenderness, no CVA tenderness. Positive bilateral straight leg raises. Extremities: No tenderness, no cyanosis, no clubbing, ROM intact, no edema. [] Neurologic: Alert and oriented X 3, normal motor function, normal sensory function, no focal deficits noted. [] Psychologic: Affect normal, judgement normal, mood normal. [] Current Patient Data Vital Signs Vital Signs Date Time Temp Pulse Resp B/P (MAP) Pulse Ox O2 Delivery O2 Flow Rate FiO2 07/03/18 11:56 98.4 95 18 150/100 (117) 97 Room Air 98.4 EKG EKG [] Radiology/Procedures Radiology/Procedures [] Course & Med Decision Making Course & Med Decision Making Pertinent Labs and Imaging studies reviewed. (See chart for details) This is a 52-year-old female patient well known to this ED presented with chronic low back pain with sciatica. Patient was given pain relief in the ED. Discharged with cyclobenzaprine and Medrol Dosepak. Follow-up with her PCP in the course of this week. She has no cauda equina syndrome symptoms. She does not have any weakness. She has an appointment for an MRI in this hospital in the course of the week. She is provided return precautions and discharged in stable condition. i was working in the ED at the time of this visit. i was available for consulation at all times in the ED, i was not directly involved in the care of this patient. Dragon Disclaimer Dragon Disclaimer This electronic medical record was generated, in whole or in part, using a voice recognition dictation system. Departure Departure Impression: Primary Impression: Chronic low back pain Additional Impression: Sciatica Disposition: 01 LEFT WITHOUT BEING SEEN Referrals: MARITZA ALCARAZ MD (PCP) Follow-up with your doctor in 1-2 weeks Patient Instructions: Back Pain, Adult, [id number], Sciatica, [id number] Additional Instructions: You were seen in the emergency room for chronic back pain with sciatica. Take the prescribed medications as ordered. Follow-up with your doctor in the course of this week. Ensure you get to the MRI scheduled by your doctor this week done. Scripts Cyclobenzaprine Hcl (CYCLOBENZAPRINE HCL) 10 Mg Tablet 1 TAB PO TID, #30 TAB Prov: MUTUNGA,MEMO IT OPERATIONS SPECIALIST 07/03/18 Methylprednisolone (MEDROL) 4 Mg Tab.ds.pk 1 PKG PO UD, #1 PKG Prov: MUTUNGA,MEMO IT OPERATIONS SPECIALIST 07/03/18 Problem Qualifiers Primary Impression: Chronic low back pain Back pain laterality: bilateral Sciatica presence: with sciatica Sciatica laterality: bilateral sciatica Qualified Codes: M54.42 - Lumbago with sciatica, left side; M54.41 - Lumbago with sciatica, right side; G89.29 - Other chronic pain Additional Impression: Sciatica Laterality: bilateral Qualified Codes: M54.31 - Sciatica, right side; M54.32 - Sciatica, left side MEMO NELSON APRN Jul 03, 2018 12:17 KATHY CASON MD Jul 03, 2018 16:43
[2018-07-03] MEDS ORDERED: traMADol 50 MG TABLET PO ONE (12:30)
[2018-07-03] MEDS ORDERED: CYCLOBENZAPRINE 10 MG TABLET. PO ONE (12:30)
== END 2018-07-03 12:32 | disposition home or self-care (01) ==
LOC: ER 11:45
DX: M54.42 Lumbago with sciatica, left side (principal); M54.41 Lumbago with sciatica, right side; G89.29 Other chronic pain; J45.909 Unspecified asthma, uncomplicated; E78.00 Pure hypercholesterolemia, unspecified; Z88.6 Allergy status to analgesic agent; Z88.8 Allergy status to other drugs, medicaments and biological substances
CPT/HCPCS: 99283

== ENCOUNTER → 2018-07-07 | Outpatient (CLI) | payer OTHER ==
[2018-07-03 11:56] VITALS: BP 150/100
[~2018-07-07] MED LIST changes: +VENTOLIN HFA18 GM INH
--- NOTE | 2018-07-07 14:55 | KCIC ---
MRI of the lumbar spine without contrast 07/07/2018 CLINICAL HISTORY: Low back pain which radiates down both legs. TECHNIQUE: Unenhanced T1-weighted and T2-weighted sagittal and axial and inversion recovery sagittal images of the lumbar spine were obtained. FINDINGS: Comparison is made to radiographs of the lumbar spine dated 05/24/2018. Very mild S-shaped curvature of the thoracolumbar spine is seen. Degenerative signal changes are seen involving all of the disks of the lumbar spine. Degenerative changes are seen within the marrow surrounding these discs. Loss of height of the L1-2, L2-3, L4-5 and L5-S1 discs is noted. The conus medullaris is within normal limits in morphology, position, and signal characteristics. At the L1-2 disc space there is a mild generalized disc bulge. This is eccentric to the right. Degenerative changes are seen involving the facet joints bilaterally. There is mild ligamentum flavum hypertrophy bilaterally. These findings when combined result in mild central spinal canal stenosis. No neural foraminal stenosis is seen. At the L2-3 disc space there is a moderate generalized disc bulge. Degenerative changes are seen involving the facet joints bilaterally. There is mild ligamentum flavum hypertrophy bilaterally. There is prominence of the posterior epidural fat. These findings when combined result in mild to moderate central spinal canal stenosis. No neural foraminal stenosis is seen. At the L3-4 disc space there is a mild generalized disc bulge. Degenerative changes are seen involving the facet joints bilaterally. There is moderate ligamentum flavum hypertrophy bilaterally. There is prominence of the posterior epidural fat. These findings when combined result in moderate to severe central spinal canal stenosis. No neural foraminal stenosis is seen. At the L4-5 disc space there is a mild generalized disc bulge. Degenerative changes are seen involving the facet joints bilaterally. There is mild ligamentum flavum hypertrophy bilaterally. Small facet joint effusions are seen. There is prominence of the posterior epidural fat. These findings when combined result in mild to moderate central spinal canal stenosis. No neural foraminal stenosis is seen. At the L5-S1 disc space, the patient is post left hemilaminectomy. There is a mild generalized disc bulge. Degenerative changes are seen involving the facet joints bilaterally. These findings when combined do not result in significant central spinal canal stenosis. No neural foraminal stenosis is seen. IMPRESSION: 1. Post left hemilaminectomy at L5-S1. 2. The changes of degenerative disc disease are seen throughout the lumbar spine. These findings result in mild central spinal canal stenosis at L1-2, mild to moderate central spinal canal stenosis at L2-3, moderate to severe central spinal canal stenosis at L3-4, and mild to moderate central spinal canal stenosis at L4-5. No neural foraminal stenosis is seen. Electronically signed by: Lopez Sims MD (07/07/2018 2:51 PM) [id number]
== END | disposition home or self-care (01) ==
LOC: KCIC MRI 12:12
PROVIDERS: ATTEND Family Medicine
DX: M51.36 Other intervertebral disc degeneration, lumbar region (principal); M48.061 Spinal stenosis, lumbar region without neurogenic claudication; E78.00 Pure hypercholesterolemia, unspecified; J44.9 Chronic obstructive pulmonary disease, unspecified; F17.210 Nicotine dependence, cigarettes, uncomplicated
CPT/HCPCS: 72148

== ENCOUNTER 2018-07-10 12:33 | Emergency (ER) | payer OTHER ==
[~2018-07-10] VITALS: Ht 165.1 cm; Wt 72.6 kg
[~2018-07-10 12:33] MED LIST changes: -VENTOLIN HFA18 GM INH
[2018-07-10 12:59] VITALS: BP 159/89
[2018-07-10] MEDS ORDERED: predniSONE 10 MG TABLET PO ONE (13:15)
[2018-07-10] MEDS ORDERED: traMADol 50 MG TABLET PO ONE (13:15)
[2018-07-10] MEDS ORDERED: IPRATRPIUM/ALBUTEROL 0.5/2.5MG 3 ML NEBU. NEB ONE (13:15)
[2018-07-10] MEDS ORDERED: PRED50TA PO (13:59)
[2018-07-10] MEDS ORDERED: BENZ100C PO (13:59)
[2018-07-10] MEDS ORDERED: VENTOLIN HFA18 GM INH (13:59)
--- NOTE | 2018-07-10 14:00 | PHYS DOC ---
Past Medical History Past Medical History: Asthma, High Cholesterol, Other Additional Past Medical Histor: CHRONIC BACK PAIN, CHRONIC PAIN, MED SEEKING BEHAVIOR Past Surgical History: Other Additional Past Surgical Histo: back, left arm Alcohol Use: None Drug Use: None Adult General Chief Complaint Chief Complaint: MEDICATION REFILL HPI HPI Patient is a 52 year old female with history of asthma, high cholesterol, who presents today complaining of a productive cough since yesterday. Patient denies any fever. Patient is also complaining of chronic back pain radiating to bilateral lower extremities. Patient denies any known injury. Denies any injury. Denies any loss of bowel bladder function. Patient is well known to this ED for her chronic sciatic pain. Review of Systems Review of Systems Constitutional: Denies fever or chills [] Eyes: Denies change in visual acuity, redness, or eye pain [] HENT: Denies nasal congestion or sore throat [] Respiratory: Reports cough, denies shortness of breath [] Cardiovascular: No additional information not addressed in HPI [] GI: Denies abdominal pain, nausea, vomiting, bloody stools or diarrhea [] : Denies dysuria or hematuria [] Musculoskeletal: Reports exacerbation of chronic low back pain. Integument: Denies rash or skin lesions [] Neurologic: Denies headache, focal weakness or sensory changes [] All other systems were reviewed and found to be within normal limits, except as documented in this note. Current Medications Current Medications Current Medications Medications (Trade) Dose Ordered Sig/Jayy Start Time Stop Time Status Last Admin Dose Admin Albuterol/ Ipratropium (Duoneb) 3 ml 1X ONCE 07/10/18 13:15 07/10/18 13:16 DC 07/10/18 13:38 3 ML Prednisone (Prednisone) 50 mg 1X ONCE 07/10/18 13:15 07/10/18 13:16 DC Tramadol HCl (Ultram) 100 mg 1X ONCE 07/10/18 13:15 07/10/18 13:16 DC Allergies Allergies Allergies Coded Allergies Type Severity Reaction Last Updated Verified ibuprofen Allergy Intermediate rash, TOLERATES KETOROLAC 04/08/18 Yes naproxen Allergy Intermediate rash, TOLERATES KETOROLAC 04/08/18 Yes Physical Exam Physical Exam Constitutional: Well developed, well nourished, no acute distress, non-toxic appearance. [] HENT: Normocephalic, atraumatic, bilateral external ears normal, oropharynx moist, no oral exudates, nose normal. [] Eyes: PERRLA, EOMI, conjunctiva normal, no discharge. [] Neck: Normal range of motion, no tenderness, supple, no stridor. [] Cardiovascular:Heart rate regular rhythm, no murmur [] Lungs & Thorax: Bilateral breath sounds clear to auscultation [] Abdomen: Bowel sounds normal, soft, no tenderness, no masses, no pulsatile masses. [] Skin: Warm, dry, no erythema, no rash. [] Back: Diffuse paraspinal muscle tenderness bilateral lumbar spine, no midline lumbar spine tenderness, no CVA tenderness. Positive bilateral straight leg raises at approx. 45 Extremities: No tenderness, no cyanosis, no clubbing, ROM intact, no edema. [] Neurologic: Alert and oriented X 3, normal motor function, normal sensory function, no focal deficits noted. [] Psychologic: Affect normal, judgement normal, mood normal. [] Current Patient Data Vital Signs Vital Signs Date Time Temp Pulse Resp B/P (MAP) Pulse Ox O2 Delivery O2 Flow Rate FiO2 07/10/18 13:38 96 Room Air 07/10/18 12:59 99.5 105 22 159/89 (112) 99.5 EKG EKG [] Radiology/Procedures Radiology/Procedures [] Course & Med Decision Making Course & Med Decision Making Pertinent Labs and Imaging studies reviewed. (See chart for details) This is a 52-year-old female patient presenting to the ED today with complaints of chronic low back pain with sciatica. Patient is well known to this ED for her pain. She was instructed as usual to follow-up with her own primary care doctor. She is also complaining of a cough. Lungs are clear on exam, patient was given a DuoNeb treatment started on prednisone. She was discharged on prednisone. Cyclobenzaprine for her chronic back pain and albuterol inhaler. Follow-up with her PCP in 1-2 weeks. Dragon Disclaimer Dragon Disclaimer This electronic medical record was generated, in whole or in part, using a voice recognition dictation system. Departure Departure Impression: Primary Impression: Back pain Additional Impression: Cough Disposition: 01 HOME, SELF-CARE Condition: STABLE Referrals: MARITZA ALCARAZ MD (PCP) follow up in one week Patient Instructions: Back Pain, Adult, Cough, Adult, [id number] Additional Instructions: You were evaluated in the emergency room for chronic back pain and a cough. Take the prescribed medications as ordered. Follow-up with your doctor in 1-2 weeks as needed. Scripts Albuterol Sulfate (VENTOLIN HFA INHALER) 18 Gm Hfa.aer.ad 2 PUFF INH Q4HRS for FOR ASTHMA, #1 INHALER 0 Refills Prov: MEMO NELSON APRN 07/10/18 Benzonatate (TESSALON PERLE) 100 Mg Capsule 1 CAP PO TID, #30 CAP Prov: MEMO NELSON APRN 07/10/18 Prednisone (PREDNISONE) 50 Mg Tablet 1 TAB PO DAILY, #4 TAB Prov: MEMO NELSON APRN 07/10/18 Problem Qualifiers Primary Impression: Back pain Back pain location: low back pain Chronicity: chronic Back pain laterality : bilateral Sciatica presence: with sciatica Sciatica laterality: bilateral sciatica Qualified Codes: M54.42 - Lumbago with sciatica, left side ; M54.41 - Lumbago with sciatica, right side; G89.29 - Other chronic pain MEMO NELSON APRN Jul 10, 2018 14:00
== END 2018-07-10 14:21 | disposition home or self-care (01) ==
LOC: ER 12:33
DX: R05 Cough (principal); G89.29 Other chronic pain; M54.41 Lumbago with sciatica, right side; M54.42 Lumbago with sciatica, left side; J45.909 Unspecified asthma, uncomplicated; E78.00 Pure hypercholesterolemia, unspecified; Z76.5 Malingerer [conscious simulation]; Z98.890 Other specified postprocedural states; Z88.5 Allergy status to narcotic agent; Z88.6 Allergy status to analgesic agent
CPT/HCPCS: 94640; 99283; J7512; J7620

== ENCOUNTER 2018-07-14 16:58 | Emergency (ER) | payer OTHER ==
[~2018-07-14] VITALS: Ht 165.1 cm; Wt 72.6 kg
[~2018-07-14 16:58] MED LIST changes: +VENTOLIN HFA18 GM INH
--- NOTE | 2018-07-14 17:28 | PHYS DOC ---
Past Medical History Past Medical History: Asthma, High Cholesterol, Other Additional Past Medical Histor: CHRONIC BACK PAIN, CHRONIC PAIN, MED SEEKING BEHAVIOR Past Surgical History: Other Additional Past Surgical Histo: back, left arm Alcohol Use: None Drug Use: None Adult General Chief Complaint Chief Complaint: CHEST PAIN HPI HPI Patient is a 52 year old female who presents with left chest pain and mid epigastric pain that is tender with palpation x 4 days. Denies soa but states has a cough. Patient states she has had indigestion. Review of Systems Review of Systems Constitutional: Denies fever or chills [] Eyes: Denies change in visual acuity, redness, or eye pain [] HENT: Denies nasal congestion or sore throat [] Respiratory: Denies cough or shortness of breath [] Cardiovascular: left chest pain, midsternal chest pain GI: Indigestion. Denies abdominal pain, nausea, vomiting, bloody stools or diarrhea [] : Denies dysuria or hematuria [] Musculoskeletal: Chronic low back pain. Denies joint pain [] Integument: Denies rash or skin lesions [] Neurologic: Denies headache, focal weakness or sensory changes [] Endocrine: Denies polyuria or polydipsia [] All other systems were reviewed and found to be within normal limits, except as documented in this note. Current Medications Current Medications Current Medications Medications (Trade) Dose Ordered Sig/Jayy Start Time Stop Time Status Last Admin Dose Admin Famotidine (Pepcid Vial) 20 mg 1X ONCE 07/14/18 17:30 07/14/18 17:31 Cancel Multi-Ingredient Mouthwash/Gargle (Gi Cocktail) 20 ml 1X ONCE 07/14/18 17:30 07/14/18 17:31 DC 07/14/18 17:33 20 ML Tramadol HCl (Ultram) 50 mg 1X ONCE 07/14/18 17:30 07/14/18 17:31 DC 07/14/18 17:33 50 MG Allergies Allergies Allergies Coded Allergies Type Severity Reaction Last Updated Verified ibuprofen Allergy Intermediate rash, TOLERATES KETOROLAC 04/08/18 Yes naproxen Allergy Intermediate rash, TOLERATES KETOROLAC 04/08/18 Yes Physical Exam Physical Exam Constitutional: Well developed, well nourished, no acute distress, non-toxic appearance. [] HENT: Normocephalic, atraumatic, bilateral external ears normal, oropharynx moist, no oral exudates, nose normal. [] Eyes: PERRLA, EOMI, conjunctiva normal, no discharge. [] Neck: Normal range of motion, no tenderness, supple, no stridor. [] Cardiovascular:Heart rate regular rhythm, no murmur [] Lungs & Thorax: Bilateral breath sounds clear to auscultation [] Abdomen: Bowel sounds normal, soft, no tenderness, no masses, no pulsatile masses. [] Skin: Warm, dry, no erythema, no rash. [] Back: No tenderness, no CVA tenderness. [] Extremities: No tenderness, no cyanosis, no clubbing, ROM intact, no edema. [] Neurologic: Alert and oriented X 3, normal motor function, normal sensory function, no focal deficits noted. [] Psychologic: Affect normal, judgement normal, mood normal. [] Current Patient Data Vital Signs Vital Signs Date Time Temp Pulse Resp B/P (MAP) Pulse Ox O2 Delivery O2 Flow Rate FiO2 07/14/18 17:36 82 20 114/71 (85) 98 Room Air 07/14/18 17:05 98.8 98.8 Lab Values Laboratory Tests Test 07/14/18 17:18 POC Troponin I 0.02 ng/ml (<0.08) EKG EKG Sinus rhythm no STEMI Interpretation Time: [address] Kellogg Radiology/Procedures Radiology/Procedures Chest xray Impressions: no acute findings and read by Dr Manning Course & Med Decision Making Course & Med Decision Making Patient is a 52 year old female who presents with left chest pain and mid epigastric pain that is tender with palpation x 4 days. Denies soa but states has a cough. Patient states she has had indigestion. Vitals are 125/69, 94 heart rate, 99% room air and 20 RR. Patient has no extremity swelling. Patient' s heart rate is regular and without murmur. Patient's abdomen is soft and nontender. Patient states she has left chest pain that comes and goes and has mid sternal chest pain and chronic low back pain for the last 4 days. Patient states she does not tramadol at home. Patient states she's also had a cough lately. Patient does complain of some indigestion. Patient skin is pink warm and dry. Patient is alert and oriented. Patient denies any numbness or tingling or weaknesses. Patient is ambulatory. EKG shows sinus rhythm and no STEMI. Istat troponin is 0.02.Heart score 1. Patient to follow up with her primary care. Patient states that she no longer has chest pain upon reevaluation. [] Dragon Disclaimer Dragon Disclaimer This electronic medical record was generated, in whole or in part, using a voice recognition dictation system. Departure Departure Impression: Primary Impression: Chest pain Additional Impression: Chronic back pain Disposition: HOME, SELF-CARE Condition: STABLE Referrals: MARITZA ALCARAZ MD (PCP) Patient Instructions: Chest Pain (Nonspecific) Additional Instructions: Follow up with your primary care physician. Problem Qualifiers Primary Impression: Chest pain Chest pain type: unspecified Qualified Codes: R07.9 - Chest pain, unspecified Additional Impression: Chronic back pain Back pain location: low back pain Back pain laterality: bilateral Sciatica presence: unspecified whether sciatica present Qualified Codes: M54.5 - Low back pain; G89.29 - Other chronic pain RICHARD MCELROY [employer] Jul 14, 2018 17:28
[2018-07-14] MEDS ORDERED: FAMOTIDINE 20 MG/2 ML VIAL IVP ONE (17:30)
[2018-07-14] MEDS: LIDO:MAALOX 1:1 20 ML SINGLE DOSE. SWSW ONE (17:33)
[2018-07-14] MEDS: traMADol 50 MG TABLET PO ONE (17:33)
--- NOTE | 2018-07-14 17:53 | EKG ---
[facility] [address] [place] [address] Test Date: 2018-07-14 Test Time: 17:04:48 Pat Name: JACKY GLASER Department: Room: Gender: F [employer]: : 1965 Requested By: RICHARD MCELROY Order Number: [id number] Reading MD: Measurements Intervals [place] Rate: 91 P: 41 [place]: 142 QRS: 30 QRSD: 84 T: 33 QT: 326 QTc: 402 Interpretive Statements SINUS RHYTHM LEFT ATRIAL ABNORMALITY ABNORMAL ECG RI6.01 No previous ECG available for comparison
--- NOTE | 2018-07-14 18:35 | RAD ---
PA and lateral chest radiographs 07/14/2018 CLINICAL HISTORY: Cough and fever for days. PA and lateral digital radiographs of the chest were obtained. Comparison study is dated 05/28/2018. The cardiac silhouette is normal in size. The thoracic aorta is mildly tortuous. No acute pulmonary infiltrate is seen. No pleural effusion or pneumothorax is noted. The osseous structures are unchanged. IMPRESSION: No acute abnormality is seen. Electronically signed by: Lopez Sims MD (07/14/2018 6:31 PM) [facility]
[2018-07-14 18:36] VITALS: BP 113/74
[2018-07-15] MEDS ORDERED: BENZ100C PO (13:23)
== END 2018-07-14 19:02 | disposition home or self-care (01) ==
LOC: ER 16:58
DX: R07.89 Other chest pain (principal); G89.29 Other chronic pain; M54.5 Low back pain; R10.13 Epigastric pain; R05 Cough; J45.909 Unspecified asthma, uncomplicated; E78.00 Pure hypercholesterolemia, unspecified; Z88.5 Allergy status to narcotic agent; Z88.8 Allergy status to other drugs, medicaments and biological substances; Z76.5 Malingerer [conscious simulation]
CPT/HCPCS: 71046; 84484; 93005; 99284-25

== ENCOUNTER 2018-07-15 12:35 | Emergency (ER) | payer OTHER ==
[~2018-07-15] VITALS: Ht 165.1 cm; Wt 72.6 kg
[2018-07-15] MEDS ORDERED: BENZ100C PO (13:23)
--- NOTE | 2018-07-15 13:24 | PHYS DOC ---
Past Medical History Past Medical History: Asthma, High Cholesterol, Other Additional Past Medical Histor: CHRONIC BACK PAIN, CHRONIC PAIN, MED SEEKING BEHAVIOR Past Surgical History: Other Additional Past Surgical Histo: back, left arm Alcohol Use: None Drug Use: None, Other Adult General Chief Complaint Chief Complaint: Congestion HPI HPI Patient is a 52 year old female who presents with cough and congestion of which she states that she was here for yesterday. Review of Systems Review of Systems Constitutional: Denies fever or chills [] Eyes: Denies change in visual acuity, redness, or eye pain [] HENT: Nasal congestion or sore throat [] Respiratory: Cough or shortness of breath [] Cardiovascular: No additional information not addressed in HPI [] GI: Denies abdominal pain, nausea, vomiting, bloody stools or diarrhea [] : Denies dysuria or hematuria [] Musculoskeletal: Denies back pain or joint pain [] Integument: Denies rash or skin lesions [] Neurologic: Denies headache, focal weakness or sensory changes [] Endocrine: Denies polyuria or polydipsia [] All other systems were reviewed and found to be within normal limits, except as documented in this note. Current Medications Current Medications Current Medications Medications (Trade) Dose Ordered Sig/Jayy Start Time Stop Time Status Last Admin Dose Admin Albuterol/ Ipratropium (Duoneb) 3 ml 1X ONCE 07/15/18 13:15 07/15/18 13:16 DC 07/15/18 13:27 3 ML Dexamethasone (Decadron) 8 mg [id number] 07/15/18 13:15 07/15/18 14:00 DC 07/15/18 13:48 8 MG Tramadol HCl (Ultram) 50 mg 1X ONCE 07/15/18 13:15 07/15/18 13:16 DC 07/15/18 13:48 50 MG Allergies Allergies Allergies Coded Allergies Type Severity Reaction Last Updated Verified ibuprofen Allergy Intermediate rash, TOLERATES KETOROLAC 04/08/18 Yes naproxen Allergy Intermediate rash, TOLERATES KETOROLAC 04/08/18 Yes Physical Exam Physical Exam Constitutional: Well developed, well nourished, no acute distress, non-toxic appearance. [] HENT: Normocephalic, atraumatic, bilateral external ears normal, oropharynx moist, no oral exudates, nose normal. [] Eyes: PERRLA, EOMI, conjunctiva normal, no discharge. [] Neck: Normal range of motion, no tenderness, supple, no stridor. [] Cardiovascular:Heart rate regular rhythm, no murmur [] Lungs & Thorax: Bilateral breath sounds clear to auscultation [] Abdomen: Bowel sounds normal, soft, no tenderness, no masses, no pulsatile masses. [] Skin: Warm, dry, no erythema, no rash. [] Back: No tenderness, no CVA tenderness. [] Extremities: No tenderness, no cyanosis, no clubbing, ROM intact, no edema. [] Neurologic: Alert and oriented X 3, normal motor function, normal sensory function, no focal deficits noted. [] Psychologic: Affect normal, judgement normal, mood normal. [] Current Patient Data Vital Signs Vital Signs Date Time Temp Pulse Resp B/P (MAP) Pulse Ox O2 Delivery O2 Flow Rate FiO2 07/15/18 13:53 88 16 163/81 (108) 97 Room Air 07/15/18 13:00 97.8 97.8 EKG EKG [] Radiology/Procedures Radiology/Procedures [] Course & Med Decision Making Course & Med Decision Making Patient is a 52 year old female who presents with cough and congestion of which she states that she was here for yesterday. Patient is afebrile. Patient speaks in full sentences. Patient has no extremity edema. Patient was seen yesterday complaining of chest pain. Patient had a chest pain workup done and a chest x-ray of which all were unremarkable. Patient's lungs are clear to auscultation in all lobes. Patient denies any smoking or drug use. Patient's heart rate is regular and no murmur. Patient has no sinus tenderness. Skin is pink warm and dry. Abdomen is soft and nontender. Denies any nausea vomiting or diarrhea. Denies any headache. Patient is again asking for her tramadol. She states she has not tried to take any medications for her symptoms. Patient is told that she must take some jkwm-[id number]-lfyuoyt medications for her symptoms such as Flonase, DayQuil or NyQuil, Mucinex, and Tylenol for pain since she is allergic to ibuprofen and naproxen. Patient states that Tylenol does not work. Patient will receive a dose of dexamethasone, a breathing treatment per her request, and one tramadol. I will give her a prescription for Tessalon Perles. Patient is told that she must follow-up with her primary care. Patient agrees with this discharge plan. [] Dragon Disclaimer Dragon Disclaimer This electronic medical record was generated, in whole or in part, using a voice recognition dictation system. Departure Departure Impression: Primary Impression: Cough Disposition: HOME, SELF-CARE Condition: STABLE Referrals: MARITZA ALCARAZ MD (PCP) Patient Instructions: Cough, Adult Additional Instructions: Follow up with your primary care. Take OTC medications such as dayquil or nyquil , flonase, mucinex, and Tylenol. Scripts Benzonatate (TESSALON PERLE) 100 Mg Capsule 100 MG PO TID PRN for COUGH, #20 CAP Prov: RICHARD MCELROY APRN 07/15/18 Attending Signature Attending Signature I have reviewed the [facility]'s note and plan of care. I was available for consultation as needed during the patient's visit in the emergency department. I agree with the clinical impression, plan, and disposition. RICHARD MCELROY APRN Jul 15, 2018 13:23 MARIA D ABERNATHY DO Jul 18, 2018 03:02
[2018-07-15] MEDS: IPRATRPIUM/ALBUTEROL 0.5/2.5MG 3 ML NEBU. NEB ONE (13:27)
[2018-07-15] MEDS: DEXAMETHASONE 4 MG TABLET PO SCH (13:48)
[2018-07-15] MEDS: traMADol 50 MG TABLET PO ONE (13:48)
[2018-07-15 13:53] VITALS: BP 163/81
[2018-07-16] MEDS ORDERED: CYCL10TA2 PO (16:10)
== END 2018-07-15 14:00 | disposition home or self-care (01) ==
LOC: ER 12:35
DX: R05 Cough (principal); R09.81 Nasal congestion; G89.29 Other chronic pain; J45.909 Unspecified asthma, uncomplicated; E78.00 Pure hypercholesterolemia, unspecified; Z88.5 Allergy status to narcotic agent; Z88.8 Allergy status to other drugs, medicaments and biological substances
CPT/HCPCS: 94640; 99283; J7620; J8540

== ENCOUNTER 2018-07-16 15:35 | Emergency (ER) | payer OTHER ==
[~2018-07-16] VITALS: Ht 170.2 cm; Wt 90.7 kg
[2018-07-16 16:03] VITALS: BP 141/89
[2018-07-16] MEDS ORDERED: CYCL10TA2 PO (16:10)
--- NOTE | 2018-07-16 16:11 | PHYS DOC ---
Past Medical History Past Medical History: No Pertinent History Additional Past Medical Histor: CHRONIC BACK PAIN, CHRONIC PAIN, MED SEEKING BEHAVIOR Past Surgical History: Other Additional Past Surgical Histo: back, left arm Alcohol Use: None Drug Use: None Adult General Chief Complaint Chief Complaint: BACK PAIN OR INJURY HPI HPI Patient is a 52 year old female who presents today complaining of exacerbation of bilateral low back pain radiating to bilateral lower extremities with no known injury. Patient states symptoms have been going on for 2 days. Patient denies any any loss of bowel bladder function. Patient is well known to this ED for chronic back pain. Review of Systems Review of Systems Constitutional: Denies fever or chills [] GI: Denies abdominal pain, nausea, vomiting, bloody stools or diarrhea [] : Denies dysuria or hematuria [] Musculoskeletal: Reports exacerbation of chronic low back pain Integument: Denies rash or skin lesions [] Neurologic: Denies headache, focal weakness or sensory changes [] All other systems were reviewed and found to be within normal limits, except as documented in this note. Current Medications Current Medications Current Medications Medications (Trade) Dose Ordered Sig/Jayy Start Time Stop Time Status Last Admin Dose Admin Tramadol HCl (Ultram) 100 mg 1X ONCE 07/16/18 16:15 07/16/18 16:16 UNV Allergies Allergies Allergies Coded Allergies Type Severity Reaction Last Updated Verified ibuprofen Allergy Intermediate rash, TOLERATES KETOROLAC 04/08/18 Yes naproxen Allergy Intermediate rash, TOLERATES KETOROLAC 04/08/18 Yes Physical Exam Physical Exam Constitutional: Well developed, well nourished, no acute distress, non-toxic appearance. [] Abdomen: Bowel sounds normal, soft, no tenderness, no masses, no pulsatile masses. [] Skin: Warm, dry, no erythema, no rash. [] Back: Diffuse paraspinal muscle tenderness bilateral lumbar spine, no midline lumbar spine tenderness, no CVA tenderness. [] Extremities: No tenderness, no cyanosis, no clubbing, ROM intact, no edema. [] Neurologic: Alert and oriented X 3, normal motor function, normal sensory function, no focal deficits noted. [] Psychologic: Affect normal, judgement normal, mood normal. [] EKG EKG [] Radiology/Procedures Radiology/Procedures [] Course & Med Decision Making Course & Med Decision Making Pertinent Labs and Imaging studies reviewed. (See chart for details) This is a 52-year-old female patient well known to this ED presenting today with exacerbation of chronic low back pain, no known injury, no cauda equina syndrome symptoms. Patient asking for prescription for tramadol. Informed patient we will not give her any prescription for tramadol. No further cyclobenzaprine. Follow-up with her own PCP next week. Dragon Disclaimer Dragon Disclaimer This electronic medical record was generated, in whole or in part, using a voice recognition dictation system. Departure Departure Impression: Primary Impression: Chronic back pain Additional Impressions: Chronic sciatica of left side Chronic sciatica of right side Disposition: HOME, SELF-CARE Condition: STABLE Referrals: MARITZA ALCARAZ MD (PCP) Follow-up next week Patient Instructions: Back Pain, Adult, Sciatica with [facility] Additional Instructions: You were seen in the emergency room for chronic low back pain with sciatica. Follow-up with your doctor in 1-2 weeks. Take the prescribed medications as ordered. Scripts Cyclobenzaprine Hcl (CYCLOBENZAPRINE HCL) 10 Mg Tablet 1 TAB PO TID, #30 TAB Prov: MEMO NELSON APRN 07/16/18 Problem Qualifiers Primary Impression: Chronic back pain Back pain location: low back pain Back pain laterality: bilateral Sciatica presence: with sciatica Sciatica laterality: bilateral sciatica Qualified Codes: M54.42 - Lumbago with sciatica, left side; M54.41 - Lumbago with sciatica, right side; G89.29 - Other chronic pain MEMO NELSON APRN Jul 16, 2018 16:11
[2018-07-16] MEDS ORDERED: traMADol 50 MG TABLET ONE (16:14)
[2018-07-16] MEDS: traMADol 50 MG TABLET PO ONE (16:21)
== END 2018-07-16 16:23 | disposition home or self-care (01) ==
LOC: ER 15:35
DX: G89.29 Other chronic pain (principal); M54.41 Lumbago with sciatica, right side; M54.42 Lumbago with sciatica, left side; Z88.5 Allergy status to narcotic agent; Z88.8 Allergy status to other drugs, medicaments and biological substances; Z98.890 Other specified postprocedural states
CPT/HCPCS: 99283

== ENCOUNTER 2018-07-19 18:52 | Emergency (ER) | payer OTHER ==
[~2018-07-19] VITALS: Ht 162.6 cm; Wt 90.7 kg
[2018-07-19 19:43] VITALS: BP 120/65
--- NOTE | 2018-07-19 19:47 | PHYS DOC ---
Past Medical History Past Medical History: No Pertinent History Additional Past Medical Histor: CHRONIC BACK PAIN, CHRONIC PAIN, MED SEEKING BEHAVIOR Past Surgical History: Other Additional Past Surgical Histo: back, left arm Alcohol Use: None Drug Use: None Adult General Chief Complaint Chief Complaint: BACK PAIN OR INJURY [facility] HPI Patient is a 52 year old female with a history of chronic back pain whom presents to the ED complaining of back pain status post riding in a car. States that she was riding in a car and felt a sharp pain in her lower back. Describes the pain as sharp. Rates the pain as 7 out of 10. States she is out of her pain medication at home. Patient requesting a tramadol in the ED. States she has follow-up with her pain doctor and a correctional counselor/case manager from [facility]. Patient states she tried to see Dr. Yakov Viveros but was unable to get in. Denies bowel/bladder changes, saddle anesthesia, radiating pain, difficulty walking, nausea/vomiting, fever, chest pain or shortness of breath. Review of Systems Review of Systems Constitutional: Denies fever or chills [] Eyes: Denies change in visual acuity, redness, or eye pain [] HENT: Denies nasal congestion or sore throat [] Respiratory: Denies cough or shortness of breath [] Cardiovascular: No additional information not addressed in HPI [] GI: Denies abdominal pain, nausea, vomiting, bloody stools or diarrhea [] : Denies dysuria or hematuria [] Musculoskeletal: Complains of back pain. denies joint pain [] Integument: Denies rash or skin lesions [] Neurologic: Denies headache, focal weakness or sensory changes [] All other systems were reviewed and found to be within normal limits, except as documented in this note. Current Medications Current Medications Current Medications Medications (Trade) Dose Ordered Sig/Jayy Start Time Stop Time Status Last Admin Dose Admin Tramadol HCl (Ultram) 50 mg STK-MED ONCE 07/19/18 19:49 07/19/18 19:50 DC Allergies Allergies Allergies Coded Allergies Type Severity Reaction Last Updated Verified ibuprofen Allergy Intermediate rash, TOLERATES KETOROLAC 04/08/18 Yes naproxen Allergy Intermediate rash, TOLERATES KETOROLAC 04/08/18 Yes Physical Exam Physical Exam Constitutional: Well developed, well nourished, no acute distress, non-toxic appearance. [] HENT: Normocephalic, atraumatic Neck: Normal range of motion, no tenderness, supple, no stridor. [] Cardiovascular:Heart rate regular rhythm, no murmur [] Lungs & Thorax: Bilateral breath sounds clear to auscultation [] Abdomen: Bowel sounds normal, soft, no tenderness, no masses, no pulsatile masses. [] Skin: Warm, dry, no erythema, no rash. [] Back: No midline bony tenderness, FROM. NV intact. no CVA tenderness. [] Extremities: No tenderness, no cyanosis, no clubbing, ROM intact, no edema. [] Neurologic: Alert and oriented X 3, normal motor function, normal sensory function, no focal deficits noted. [] Psychologic: Affect normal, judgement normal, mood normal. [] Current Patient Data Vital Signs Vital Signs Date Time Temp Pulse Resp B/P (MAP) Pulse Ox O2 Delivery O2 Flow Rate FiO2 07/19/18 19:51 18 96 Room Air 07/19/18 19:43 98.0 114 120/65 (83) 98.0 EKG EKG [] Radiology/Procedures Radiology/Procedures [] Course & Med Decision Making Course & Med Decision Making Pertinent Labs and Imaging studies reviewed. (See chart for details) [] Dragon Disclaimer Dragon Disclaimer This electronic medical record was generated, in whole or in part, using a voice recognition dictation system. Departure Departure Impression: Primary Impression: Back pain Disposition: 01 HOME, SELF-CARE Condition: IMPROVED Referrals: YAKOV VIVEROS MD (PCP) Patient Instructions: Chronic Back Pain PEPPER LALA Jul 19, 2018 19:47
[2018-07-19] MEDS ORDERED: traMADol 50 MG TABLET ONE (19:49)
[2018-07-19] MEDS ORDERED: traMADol 50 MG TABLET PO ONE (20:00)
== END 2018-07-19 19:50 | disposition home or self-care (01) ==
LOC: ER 18:52
DX: M54.5 Low back pain (principal); G89.29 Other chronic pain; Z88.8 Allergy status to other drugs, medicaments and biological substances; Z88.6 Allergy status to analgesic agent
CPT/HCPCS: 99282

== ENCOUNTER 2018-07-20 13:59 | Emergency (ER) | payer OTHER ==
[~2018-07-20] VITALS: Ht 162.6 cm; Wt 90.7 kg
[2018-07-20 14:33] VITALS: BP 125/77
--- NOTE | 2018-07-20 15:27 | RAD ---
ANKLE LEFT 3V History: fall after evaluated here for back pain yesterday. Comparison: None are available No acute fracture. No bone destruction. Joint spaces intact. No significant soft tissue abnormality. IMPRESSION: No acute radiographic findings. Electronically signed by: Cruz Vega MD (07/20/2018 3:24 PM) [facility]
--- NOTE | 2018-07-20 15:44 | PHYS DOC ---
Past Medical History Past Medical History: No Pertinent History Additional Past Medical Histor: CHRONIC BACK PAIN, CHRONIC PAIN, MED SEEKING BEHAVIOR Past Surgical History: Other Additional Past Surgical Histo: back, left arm Alcohol Use: None Drug Use: None Adult General Chief Complaint Chief Complaint: LOWER EXTREMITY SWELLING HPI HPI Patient is a 52 year old male who resents to the emergency room today with complaints of left ankle pain and swelling after she fell last night. Patient currently states her pain is 10 out of 10 on the pain scale she is not taking anything for relief of her pain prior to arrival. Patient states she has been able to walk but with a limp. Review of Systems Review of Systems Constitutional: Denies fever or chills [] Musculoskeletal: Denies back pain, reports left ankle pain with bruising and swelling after a fall last night Integument: Denies rash or skin lesions [] Neurologic: Denies headache, focal weakness or sensory changes [] All other systems were reviewed and found to be within normal limits, except as documented in this note. Allergies Allergies Allergies Coded Allergies Type Severity Reaction Last Updated Verified ibuprofen Allergy Intermediate rash, TOLERATES KETOROLAC 04/08/18 Yes naproxen Allergy Intermediate rash, TOLERATES KETOROLAC 04/08/18 Yes Physical Exam Physical Exam Constitutional: Well developed, well nourished, no acute distress, non-toxic appearance. [] HENT: Normocephalic, atraumatic, bilateral external ears normal,nose normal. [] Eyes: PERRLA, conjunctiva normal, no discharge. [] Skin: Warm, dry, no erythema, no rash small bruise noted over anterior left ankle Extremities: No cyanosis, no clubbing, ROM intact, 1+ edema L ankle, L ankle diffuse tenderness to palpation Neurologic: Alert and oriented X 3, normal motor function, normal sensory function, no focal deficits noted. [] Psychologic: Affect normal, judgement normal, mood normal. [] Current Patient Data Vital Signs Vital Signs Date Time Temp Pulse Resp B/P (MAP) Pulse Ox O2 Delivery O2 Flow Rate FiO2 07/20/18 14:33 98.5 99 22 125/77 (93) 99 Room Air 98.5 EKG EKG [] Radiology/Procedures Radiology/Procedures PROCEDURE: ANKLE LEFT 3V ANKLE LEFT 3V History: fall after evaluated here for back pain yesterday. Comparison: None are available No acute fracture. No bone destruction. Joint spaces intact. No significant soft tissue abnormality. IMPRESSION: No acute radiographic findings.[] Course & Med Decision Making Course & Med Decision Making Pertinent Labs and Imaging studies reviewed. (See chart for details) Dx: L ankle sprain X-ray of L ankle was negative for any acute dislocation or fracture. Patient was given 1 tramadol in the emergency department. An Ben wrap and ankle Aircast was applied. Patient was instructed to weight-bear as tolerated. She may take Tylenol as needed at home for relief of pain. Follow-up with her primary care doctor in 1-2 days. Return to the ER for symptoms worsen. Patient verbalized an understanding of home care, medications, follow-up, and return to ED instructions and was in agreement with the plan of care. [] Dragon Disclaimer Dragon Disclaimer This electronic medical record was generated, in whole or in part, using a voice recognition dictation system. Departure Departure Impression: Primary Impression: Ankle pain Disposition: HOME, SELF-CARE Condition: STABLE Referrals: MARITZA ALCARAZ MD (PCP) Patient Instructions: Ankle Pain Additional Instructions: Take tylenol as needed for pain. Recommend application of ice, elevation, and rest of affected extremity. Wear the splint and ben wrap that was placed until follow up appointment with your primary care doctor in 2-3 days. Return to the ER if your symptoms worsen. Problem Qualifiers Primary Impression: Ankle pain Chronicity: acute Laterality: left Qualified Codes: M25.572 - Pain in left ankle and joints of left foot JEOVANNY STAHL APRN Jul 20, 2018 15:44
[2018-07-20] MEDS ORDERED: traMADol 50 MG TABLET PO ONE (15:45)
[2018-07-20] MEDS ORDERED: traMADol 50 MG TABLET ONE (15:47)
[2018-07-21] MEDS ORDERED: ACET325T9 PO (17:20)
== END 2018-07-20 15:51 | disposition home or self-care (01) ==
LOC: ER 13:59
DX: M25.572 Pain in left ankle and joints of left foot (principal); R22.42 Localized swelling, mass and lump, left lower limb; G89.29 Other chronic pain; Z88.6 Allergy status to analgesic agent; W19.XXXA Unspecified fall, initial encounter; Y93.89 Activity, other specified; Y92.89 Other specified places as the place of occurrence of the external cause; Y99.8 Other external cause status
CPT/HCPCS: 73610; 99284; L4350

== ENCOUNTER 2018-07-21 16:22 | Emergency (ER) | payer OTHER ==
[~2018-07-21] VITALS: Ht 165.1 cm; Wt 90.7 kg
[2018-07-21 16:40] VITALS: BP 107/69
[2018-07-21] MEDS ORDERED: ACET325T9 PO (17:20)
--- NOTE | 2018-07-21 17:21 | PHYS DOC ---
Past Medical History Past Medical History: No Pertinent History Additional Past Medical Histor: CHRONIC BACK PAIN, CHRONIC PAIN, MED SEEKING BEHAVIOR Past Surgical History: Other Additional Past Surgical Histo: back, left arm Alcohol Use: None Drug Use: None Adult General Chief Complaint Chief Complaint: LOWER EXTREMITY SWELLING HPI HPI Patient is a 52 year old female who presents to the ER with complaints of swelling in both of her legs and chronic pain. Pt denies any new injury and is requesting a tramadol. Pt states she is unable to have an appointment with her PCP until 08/01/18. Review of Systems Review of Systems Constitutional: Denies fever or chills [] Musculoskeletal: reports chronic pain and swelling in bilateral legs Integument: Denies rash or skin lesions [] Neurologic: Denies headache, focal weakness or sensory changes [] All other systems were reviewed and found to be within normal limits, except as documented in this note. Allergies Allergies Allergies Coded Allergies Type Severity Reaction Last Updated Verified ibuprofen Allergy Intermediate rash, TOLERATES KETOROLAC 04/08/18 Yes naproxen Allergy Intermediate rash, TOLERATES KETOROLAC 04/08/18 Yes Physical Exam Physical Exam Constitutional: Well developed, well nourished, no acute distress, non-toxic appearance obese. [] HENT: Normocephalic, atraumatic, bilateral external ears normal, nose normal. [] Eyes: PERRLA, conjunctiva normal, no discharge. [] Skin: Warm, dry, no erythema, no rash. [] Extremities: No cyanosis, no clubbing, ROM intact, 2+ edema of bilateral lower extremities, no pedal edema. Neurologic: Alert and oriented X 3, normal motor function, normal sensory function, no focal deficits noted. [] Psychologic: Affect normal, judgement normal, mood normal. [] Current Patient Data Vital Signs Vital Signs Date Time Temp Pulse Resp B/P (MAP) Pulse Ox O2 Delivery O2 Flow Rate FiO2 07/21/18 16:40 98.9 98 18 107/69 (82) 95 Room Air 98.9 EKG EKG [] Radiology/Procedures Radiology/Procedures [] Course & Med Decision Making Course & Med Decision Making Pertinent Labs and Imaging studies reviewed. (See chart for details) Dx: chonic pain of bilateral lower extremities, lower extremity edema, drug seeking behavior Pt was prescribed 325 mg tylenol to take at home as needed for pain. Advised patient that tramadol would not be prescribed today. Encouraged pt to elevate her legs when resting. Follow up with PCP as planned on 08/01/18. Patient and her spouse were in agreement with POC and verbalized an understanding of discharge instructions, medication, and follow-up. Pt ambulates with steady gait in the ER. [] Dragon Disclaimer Dragon Disclaimer This electronic medical record was generated, in whole or in part, using a voice recognition dictation system. Departure Departure Impression: Primary Impression: Chronic edema Additional Impressions: Chronic pain of lower extremity, bilateral Drug-seeking behavior Disposition: 01 HOME, SELF-CARE Condition: STABLE Referrals: MRAITZA ALCARAZ MD (PCP) Patient Instructions: Chronic Pain Management-Brief, Peripheral Edema Additional Instructions: Take tylenol as needed for pain. Elevate your legs when you are home. Follow up with your primary care doctor on 08/01/18 as planned. Return to the ER if your symptoms worsen. Scripts Acetaminophen (TYLENOL) 325 Mg Tablet 1-2 TAB PO QID PRN for PAIN, #60 TAB 0 Refills Prov: JEOVANNY STAHL APRN 07/21/18 Problem Qualifiers JEOVANNY STAHL APRN Jul 21, 2018 17:21
== END 2018-07-21 17:21 | disposition home or self-care (01) ==
LOC: ER 16:22
DX: G89.29 Other chronic pain (principal); M79.604 Pain in right leg; M79.605 Pain in left leg; R60.0 Localized edema; Z76.5 Malingerer [conscious simulation]; Z98.890 Other specified postprocedural states; Z88.5 Allergy status to narcotic agent; Z88.8 Allergy status to other drugs, medicaments and biological substances
CPT/HCPCS: 99283

== ENCOUNTER 2018-07-22 18:26 | Emergency (ER) | payer OTHER ==
[2018-07-22 19:47] LABS: BILIRUBIN,URINE NEGATIVE (NEG); CLARITY,URINE CLEAR; COLOR,URINE YELLOW; NITRITE,URINE NEGATIVE (NEG); PROTEIN,URINE NEGATIVE (NEG-TRACE); UROBILINOGEN,URINE 0.2 mg/dL (0.2 mg/dL)
--- NOTE | 2018-07-22 19:51 | PHYS DOC ---
Past Medical History Past Medical History: No Pertinent History Additional Past Medical Histor: CHRONIC BACK PAIN, CHRONIC PAIN, MED SEEKING BEHAVIOR Past Surgical History: Other Additional Past Surgical Histo: back, left arm Alcohol Use: None Drug Use: None Adult General Chief Complaint Chief Complaint: ABDOMINAL PAIN HPI HPI Patient is a 52 year old female who presents with chronic back pain and some lower extremity edema and she will be unable to see her primary care doctor until August 01, 2018. Patient is well-known to the emergency department and comes frequently with chronic back pain and drug-seeking behavior. Patient has been seen 7 times in May, 7 times in June and this is her sixth visit in July all for pain related issues. May 2018 4-chronic lower back pain, was given Robaxin - 20 tablets 7- chronic lower back pain and cough, was given Tessalon Perle - 21 tablets 14-chronic lower back pain, no prescriptions [ x-ray of the thoracic or lumbar spine were done during this visit but did show DJD and recommended further imaging as follow-up] 16-chronic lower back pain, no prescriptions 19-chest pain, admitted with a cardiology consult by Dr. Patel [ruled out]- discharged in 24 hours with [id number] tablets 29-chronic back pain, no prescriptions 30-ankle pain, no prescriptions June 2018 1-chronic back pain, no prescriptions 4-toe pain post trauma, a chest x-ray was to admit this visit and no prescriptions were given 5-toe pain, no prescriptions 7-chronic back pain and cough, no prescriptions 19-chronic pain, no prescriptions 23-chronic pain and lower extremity pain, Flexeril 30 mg and a Medrol Dosepak one package were given as prescriptions 27 - non ED imaging: Lumbar MRI 07/07/2018 IMPRESSION: 1. Post left hemilaminectomy at L5-S1. 2. The changes of degenerative disc disease are seen throughout the lumbar spine. These findings result in mild central spinal canal stenosis at L1-2, mild to moderate central spinal canal stenosis at L2-3, moderate to severe central spinal canal stenosis at L3-4, and mild to moderate central spinal canal stenosis at L4-5. No neural foraminal stenosis is seen. 30-requesting medication refill and chronic back pain with lower extremity pain : albuterol, Tessalon Perle 30 tablets and prednisone 50 mg 4 tablets were given as prescriptions July 2018 4-chest pain, no prescriptions given 5-cough, Tessalon Perles 20 tablets prescribed 6-back pain, Flexeril 30 tablets prescribed 9-back pain, no prescriptions 10-chronic back pain with lower extremity pain which was really left ankle pain after fall-no prescriptions given Review of Systems Review of Systems Constitutional: Denies fever or chills [] Eyes: Denies change in visual acuity, redness, or eye pain [] HENT: Denies nasal congestion or sore throat [] Respiratory: Denies cough or shortness of breath [] Cardiovascular: No additional information not addressed in HPI [] GI: Denies abdominal pain, nausea, vomiting, bloody stools or diarrhea [] : Denies dysuria or hematuria [] Musculoskeletal: Denies back pain or joint pain [] Integument: Denies rash or skin lesions [] Neurologic: Denies headache, focal weakness or sensory changes [] Endocrine: Denies polyuria or polydipsia [] All other systems were reviewed and found to be within normal limits, except as documented in this note. Allergies Allergies Allergies Coded Allergies Type Severity Reaction Last Updated Verified ibuprofen Allergy Intermediate rash, TOLERATES KETOROLAC 04/08/18 Yes naproxen Allergy Intermediate rash, TOLERATES KETOROLAC 04/08/18 Yes Physical Exam Physical Exam Constitutional: Well developed, well nourished, no acute distress, non-toxic appearance. [] HENT: Normocephalic, atraumatic, bilateral external ears normal, oropharynx moist, no oral exudates, nose normal. [] Eyes: PERRLA, EOMI, conjunctiva normal, no discharge. [] Neck: Normal range of motion, no tenderness, supple, no stridor. [] Cardiovascular:Heart rate regular rhythm, no murmur [] Lungs & Thorax: Bilateral breath sounds clear to auscultation [] Abdomen: Bowel sounds normal, soft, no tenderness, no masses, no pulsatile masses. [] Skin: Warm, dry, no erythema, no rash. [] Back: No tenderness, no CVA tenderness. [] Extremities: No tenderness, no cyanosis, no clubbing, ROM intact, no edema. [] Neurologic: Alert and oriented X 3, normal motor function, normal sensory function, no focal deficits noted. [] Psychologic: Affect normal, judgement normal, mood normal. [] Current Patient Data Lab Values Laboratory Tests Test 07/22/18 19:27 07/22/18 20:15 Urine Collection Type Void Urine Color Yellow Urine Clarity Clear Urine pH 8.0 Urine Specific [place] 1.010 Urine Protein Negative mg/dL (NEG-TRACE) Urine Glucose (UA) Negative mg/dL (NEG) Urine Ketones (Stick) Negative mg/dL (NEG) Urine Blood Negative (NEG) Urine Nitrite Negative (NEG) Urine Bilirubin Negative (NEG) Urine Urobilinogen Dipstick 0.2 mg/dL (0.2 mg/dL) Urine Leukocyte Esterase Negative (NEG) Urine RBC Occ /HPF (0-2) Urine WBC 0 /HPF (0-4) Urine Squamous Epithelial Cells Few /LPF Urine Bacteria 0 /HPF (0-FEW) White Blood Count 12.6 x10^3/uL (4.0-11.0) H Red Blood Count 3.36 x10^6/uL (3.50-5.40) L Hemoglobin 10.3 g/dL (12.0-15.5) L Hematocrit 30.3 % (36.0-47.0) L Mean Corpuscular Volume 90 fL (79-100) Mean Corpuscular Hemoglobin 31 pg (25-35) Mean Corpuscular Hemoglobin Concent 34 g/dL (31-37) Red Cell Distribution Width 15.4 % (11.5-14.5) H Platelet Count 365 x10^3/uL (140-400) Neutrophils (%) (Auto) 71 % (31-73) Lymphocytes (%) (Auto) 20 % (24-48) L Monocytes (%) (Auto) 4 % (0-9) Eosinophils (%) (Auto) 3 % (0-3) Basophils (%) (Auto) 1 % (0-3) Neutrophils # (Auto) 9.0 x10^3uL (1.8-7.7) H Lymphocytes # (Auto) 2.5 x10^3/uL (1.0-4.8) Monocytes # (Auto) 0.5 x10^3/uL (0.0-1.1) Eosinophils # (Auto) 0.4 x10^3/uL (0.0-0.7) Basophils # (Auto) 0.2 x10^3/uL (0.0-0.2) Laboratory Tests 07/22/18 20:15 EKG EKG [] Radiology/Procedures Radiology/Procedures [] Course & Med Decision Making Course & Med Decision Making 2109 - chest informed that the patient walked out/eloped without giving anyone any opportunity to talk with her or discuss other options/lab values. Currently still pending some of her lab work. [] Dragon Disclaimer Dragon Disclaimer This electronic medical record was generated, in whole or in part, using a voice recognition dictation system. Departure Departure Impression: Primary Impression: Chronic low back pain Additional Impression: Chronic pain of lower extremity, bilateral Disposition: 07 AGAINST MEDICAL ADVICE Condition: STABLE Referrals: MARITZA ALCARAZ MD (PCP) Problem Qualifiers BUSHRA GONZALEZ MD Jul 22, 2018 19:51
[2018-07-22 20:16] LABS: BACTERIA,URINE 0 /HPF (0-FEW); RBC,URINE OCC /HPF (0-2); SQUAMOUS EPITHELIAL CELL,UR FEW /LPF; WBC,URINE 0 /HPF (0-4)
[2018-07-22 20:29] VITALS: BP 137/65
[2018-07-22 20:41] LABS: BASO # 0.2 x10^3/uL (0.0-0.2); BASO % 1 % (0-3); EOS # 0.4 x10^3/uL (0.0-0.7); EOS % 3 % (0-3); HEMATOCRIT 30.3 % (36.0-47.0); HEMOGLOBIN 10.3 g/dL (12.0-15.5); LYMPH # 2.5 x10^3/uL (1.0-4.8); LYMPH % 20 % (24-48); MEAN CORPUSCULAR HEMOGLOBIN 31 pg (25-35); MEAN CORPUSCULAR HGB CONC 34 g/dL (31-37); MEAN CORPUSCULAR VOLUME 90 fL (79-100); MONO # 0.5 x10^3/uL (0.0-1.1); MONO % 4 % (0-9); NEUT % 71 % (31-73); PLATELET COUNT 365 x10^3/uL (140-400); RED BLOOD COUNT 3.36 x10^6/uL (3.50-5.40); RED CELL DISTRIBUTION WIDTH 15.4 % (11.5-14.5); WHITE BLOOD COUNT 12.6 x10^3/uL (4.0-11.0)
[2018-07-22 20:49] LABS: BARBITURATES NEG (NEG); BENZODIAZEPINES NEG (NEG); CANNABINOIDS NEG (NEG); COCAINE NEG (NEG); METHADONE NEG (NEG); OPIATES NEG (NEG); PHENCYCLIDINE NEG (NEG)
[2018-07-22 20:51] LABS: CALCIUM 8.6 mg/dL (8.5-10.1); CREATININE 0.8 mg/dL (0.6-1.0); GFR 75.3; POTASSIUM 4.2 mmol/L (3.5-5.1)
[2018-07-22 20:54] LABS: AMPHETAMINE/METHAMPHETAMINE NEG (NEG)
[2018-07-22 20:57] LABS: ALBUMIN 2.9 g/dL (3.4-5.0); ALBUMIN/GLOBULIN RATIO 0.8 (1.0-1.7); TOTAL BILIRUBIN 0.2 mg/dL (0.2-1.0); TOTAL PROTEIN 6.5 g/dL (6.4-8.2)
--- NOTE | 2018-07-23 07:19 | EKG ---
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
== END 2018-07-22 21:11 | disposition left against medical advice (07) ==
LOC: ER 18:26
DX: G89.29 Other chronic pain (principal); M54.5 Low back pain; M79.604 Pain in right leg; M79.605 Pain in left leg; Z76.5 Malingerer [conscious simulation]; Z98.890 Other specified postprocedural states; Z88.5 Allergy status to narcotic agent; Z88.8 Allergy status to other drugs, medicaments and biological substances
CPT/HCPCS: 36415; 80053; 80307; 81001; 84484; 85025; 93005; 99285-25; G0479

== ENCOUNTER 2018-07-23 10:31 | Emergency (ER) | payer OTHER ==
[~2018-07-23] VITALS: Ht 165.1 cm; Wt 90.7 kg
[2018-07-23 10:38] VITALS: BP 144/70
--- NOTE | 2018-07-23 10:58 | PHYS DOC ---
Past Medical History Past Medical History: No Pertinent History Additional Past Medical Histor: CHRONIC BACK PAIN, CHRONIC PAIN, MED SEEKING BEHAVIOR Past Surgical History: Other Additional Past Surgical Histo: back, left arm Alcohol Use: None Drug Use: None Adult General Chief Complaint Chief Complaint: MULTIPLE COMPLAINTS HPI HPI Patient is a 52 year old female who presents to the ER for evaluation. Patient is very well-known to this facility. Patient presents frequently with multiple complaints requesting narcotic prescriptions. On initial evaluation patient reporting lower extremity swelling resulting in falls and inability to ambulate. Patient ambulated into the ER without difficulty. When advised that no acute management or narcotics were necessary patient then began to complain of her chronic back pain requesting narcotic prescription. Advised that no narcotic prescription will be given patient began requesting narcotics for the ER. Patient has an appointment with the PCP later this month to establish care. She is previously fired by PCP secondary to her narcotic abuse. Patient advised that the ER does not manage chronic pain and advised continued close management with her PCP. Review of Systems Review of Systems Patient plan positives on review of systems including itching and hair hurting. Patient is not a reliable historian. Allergies Allergies Allergies Coded Allergies Type Severity Reaction Last Updated Verified ibuprofen Allergy Intermediate rash, TOLERATES KETOROLAC 04/08/18 Yes naproxen Allergy Intermediate rash, TOLERATES KETOROLAC 04/08/18 Yes Physical Exam Physical Exam Constitutional: obese, no acute distress, non-toxic appearance. [] HENT: Normocephalic, atraumatic, Eyes: PERRLA, EOMI, Neck: Normal range of motion, no tenderness, supple, no stridor. [] Cardiovascular:Heart rate regular rhythm, no murmur [] Lungs & Thorax: Bilateral breath sounds clear to auscultation [] Abdomen: Bowel sounds normal, soft, no tenderness, no masses, no pulsatile masses. [] Skin: Warm, dry, no erythema, no rash. [] Back: No tenderness, no CVA tenderness. [] Extremities: No tenderness, ROM intact, trace pedal edema bilaterally Neurologic: Alert and oriented X 3, no focal deficits noted. [] Psychologic: Affect normal, judgement normal, mood normal. [] EKG EKG [] Radiology/Procedures Radiology/Procedures [] Course & Med Decision Making Course & Med Decision Making Pertinent Labs and Imaging studies reviewed. (See chart for details) []Patient with very frequent ER visits. Patient advised of the ER does not manage chronic pain. Patient with no acute medical complaints and was provided with a medical screening exam. Patient advised to continue to follow up with PCP. Patient reporting that she is unable to ambulate into the ER without difficulty and ambulated out of the ER without difficulty. . Dragon Disclaimer Dragon Disclaimer This electronic medical record was generated, in whole or in part, using a voice recognition dictation system. Departure Departure Impression: Primary Impression: Drug-seeking behavior Additional Impressions: Chronic pain of lower extremity, bilateral Back pain Disposition: HOME, SELF-CARE Condition: STABLE Referrals: MARITZA ALCARAZ MD (PCP) Patient Instructions: Back Pain, Adult Additional Instructions: Thank you for coming to [facility]. Please repeat the attached handouts. Please follow-up with your primary care physician. Return to the ER if your symptoms worsen or you have any other concerns. Please keep your appointment with your primary care physician. The ER does not manage chronic pain. Problem Qualifiers MITUL AMIN DO Jul 23, 2018 10:58
== END 2018-07-23 11:29 | disposition home or self-care (01) ==
LOC: ER 10:31
DX: G89.29 Other chronic pain (principal); M79.604 Pain in right leg; M79.605 Pain in left leg; M54.9 Dorsalgia, unspecified; Z76.5 Malingerer [conscious simulation]; Z98.890 Other specified postprocedural states; Z88.5 Allergy status to narcotic agent; Z88.8 Allergy status to other drugs, medicaments and biological substances
CPT/HCPCS: 99281

== ENCOUNTER 2018-07-24 14:10 | Emergency (ER) | payer OTHER ==
[~2018-07-24] VITALS: Ht 165.1 cm; Wt 90.7 kg
[2018-07-24 14:15] VITALS: BP 123/71
--- NOTE | 2018-07-24 14:36 | PHYS DOC ---
Past Medical History Past Medical History: Other Additional Past Medical Histor: CHRONIC BACK PAIN, CHRONIC PAIN, MED SEEKING BEHAVIOR Past Surgical History: Other Additional Past Surgical Histo: back, left arm Alcohol Use: None Drug Use: None Adult General Chief Complaint Chief Complaint: LOWER EXTREMITY SWELLING HPI HPI Patient is a 52-year-old female who presents to the emergency room with complaint of chronic pain requesting 1 pain tablet. This is patient's 10th visit so far this month and ninth visit out of 10 days. Patient understands that she does not get a prescription for pain medicine but has been coming in every day just to request one pain pill. Patient denies any change in symptoms. She states that she has chronic lower extremity edema and pain. Review of Systems Review of Systems Constitutional: Denies fever or chills [] Respiratory: Denies cough or shortness of breath [] Cardiovascular: Denies chest pain[] Musculoskeletal: Complains of lower extremities pain and swelling[] Integument: Denies rash or skin lesions [] Allergies Allergies Allergies Coded Allergies Type Severity Reaction Last Updated Verified ibuprofen Allergy Intermediate rash, TOLERATES KETOROLAC 04/08/18 Yes naproxen Allergy Intermediate rash, TOLERATES KETOROLAC 04/08/18 Yes Physical Exam Physical Exam Constitutional: Well developed, well nourished, no acute distress, non-toxic appearance. [] Neck: Normal range of motion, no tenderness, supple, no stridor. [] Cardiovascular:Heart rate regular rhythm [] Lungs & Thorax: Bilateral breath sounds clear to auscultation [] Skin: Warm, dry, no erythema, no rash. [] Extremities: There is bilateral lower extremity mild pitting edema. No erythema or secondary signs of cellulitis. Negative Homans sign. [] EKG EKG [] Radiology/Procedures Radiology/Procedures [] Course & Med Decision Making Course & Med Decision Making Pertinent Labs and Imaging studies reviewed. (See chart for details) After evaluation of patient, patient informed that she would not be receiving any medication here. I have reviewed with patient how her daily visits to the emergency room are and abuse to the emergency room and her condition does not represent a true emergency. 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 Patient understands these recommendations. Dragon Disclaimer Dragon Disclaimer This electronic medical record was generated, in whole or in part, using a voice recognition dictation system. Departure Departure Impression: Primary Impression: Chronic pain Disposition: HOME, SELF-CARE Condition: STABLE Referrals: MARITZA ALCARAZ MD (PCP) Patient Instructions: Chronic Pain, Chronic Pain Management Additional Instructions: Call your primary care provider tomorrow morning for follow-up appointment to manage your chronic pain. Problem Qualifiers Primary Impression: Chronic pain Chronic pain type: other chronic pain Qualified Codes: G89.29 - Other chronic pain ISSAC OLIVIER Jr. DO Jul 24, 2018 14:36
== END 2018-07-24 14:47 | disposition home or self-care (01) ==
LOC: ER 14:10
DX: G89.29 Other chronic pain (principal); M79.604 Pain in right leg; M79.605 Pain in left leg; Z88.6 Allergy status to analgesic agent
CPT/HCPCS: 99281

== ENCOUNTER 2018-07-26 21:29 | Emergency (ER) | payer OTHER ==
[~2018-07-26] VITALS: Ht 160 cm; Wt 81.6 kg
[2018-07-26 21:45] VITALS: BP 145/84
--- NOTE | 2018-07-26 22:05 | PHYS DOC ---
Past Medical History Past Medical History: Other Additional Past Medical Histor: CHRONIC BACK PAIN, CHRONIC PAIN, MED SEEKING BEHAVIOR Past Surgical History: Other Additional Past Surgical Histo: back, left arm Alcohol Use: None Drug Use: None Adult General Chief Complaint Chief Complaint: BACK PAIN - NO INJURY HPI HPI 52-year-old female who is well known to the ER returns to the Emergency Department with request for pain medicine for her chronic lower back and bilateral lower extremity pain. Patient reports she has continued swelling in bilateral lower extremities denying any acute change. She reports she took Tylenol earlier with minimal relief in symptoms. Patient reports she has upcoming appointment scheduled on 1020 with her primary care physician but came to the ER in hopes of receiving pain medication. She was seen by this provider with steady unassisted gait to the bathroom. Patient denies any incontinence of bowel or bladder, change in bowel pattern, or saddle anesthesia. Review of Systems Review of Systems Constitutional: Denies fever or chills [] Eyes: Denies change in visual acuity, redness, or eye pain [] HENT: Denies nasal congestion or sore throat [] Respiratory: Denies cough or shortness of breath [] Cardiovascular: Denies chest pain or palpitations GI: Denies abdominal pain, nausea, vomiting, bloody stools or diarrhea [] : Denies dysuria or hematuria. Denies incontinence of bowel or bladder. Musculoskeletal: Complaints of lower back pain chronic in nature no acute change Integument: Denies rash or skin lesions. Reports bilateral lower extremity swelling with no acute change Neurologic: Denies headache, focal weakness or sensory changes [] All other systems were reviewed and found to be within normal limits, except as documented in this note. Allergies Allergies Allergies Coded Allergies Type Severity Reaction Last Updated Verified ibuprofen Allergy Intermediate rash, TOLERATES KETOROLAC 04/08/18 Yes naproxen Allergy Intermediate rash, TOLERATES KETOROLAC 04/08/18 Yes Physical Exam Physical Exam Constitutional: Well developed, well nourished, no acute distress, non-toxic appearance. [] HENT: Normocephalic, atraumatic, bilateral external ears normal, oropharynx moist, no oral exudates, nose normal. [] Eyes: PERRLA, EOMI, conjunctiva normal, no discharge. [] Neck: Normal range of motion, no tenderness, supple, no stridor. [] Cardiovascular:Heart rate regular rhythm, no murmur [] Lungs & Thorax: Bilateral breath sounds clear to auscultation [] Abdomen: Bowel sounds normal, soft, no tenderness, no masses, no pulsatile masses. [] Skin: Warm, dry, no erythema, no rash. [] Back: No tenderness, no CVA tenderness. [] Extremities: No cyanosis, no clubbing, ROM intact, 2+ nonpitting bilat lower leg /ankle Neurologic: Alert and oriented X 3, normal motor function, normal sensory function, no focal deficits noted. [] Psychologic: Affect normal, judgement normal, mood normal. [] Current Patient Data Vital Signs Vital Signs Date Time Temp Pulse Resp B/P (MAP) Pulse Ox O2 Delivery O2 Flow Rate FiO2 07/26/18 21:45 98.5 102 20 145/84 (104) 97 Room Air 98.5 EKG EKG [] Radiology/Procedures Radiology/Procedures [] Course & Med Decision Making Course & Med Decision Making Discussion had with patient regarding chronic pain and multiple ER visits. Discussed pain management as option for outpatient treatment and pamphlet provided to patient with local clinics/doctors. During discussion patient interrupted this provider begging and pleading multiple times for dose of tramadol or pain shot. With no acute changes and pt taking tylenol at home discussed further pain management would need to be through her doctors. Discussed elevation of extremities and rest. Pt was able to walk unassisted with steady gait. Pt had no incontinence and used bathroom while in ER without assist or c/o of urinary/bowel issues. Pt was speaking in full sentences with no resp. distress. Pt was able to sit on ER cart and ambulate to standing position without assist/facial grimacing or signs of distress. Dragon Disclaimer Dragon Disclaimer This electronic medical record was generated, in whole or in part, using a voice recognition dictation system. Departure Departure Impression: Primary Impression: Chronic back pain Additional Impression: Chronic pain of lower extremity, bilateral Disposition: 01 HOME, SELF-CARE Condition: STABLE Referrals: MARITZA ALCARAZ MD (PCP) Patient Instructions: Chronic Back Pain, Chronic Pain Management-Brief Additional Instructions: As discussed you need to keep your scheduled appointment with your primary care physician for further care with your chronic pain. As discussed you should elevate your extremities. The Emergency Department is not for chronic pain management and further care needs to be provided by your primary doctor or pain management as your condition is chronic. You came in to the ER for the same pain that you have been evaluated for multiple times with no new changes. As discussed continue tylenol as directed on container and continue home medications as previously prescribed. Problem Qualifiers GAIL HEART APRN Jul 26, 2018 22:05
== END 2018-07-26 22:09 | disposition home or self-care (01) ==
LOC: ER 21:29
DX: G89.29 Other chronic pain (principal); M54.5 Low back pain; M79.604 Pain in right leg; M79.605 Pain in left leg; Z88.6 Allergy status to analgesic agent
CPT/HCPCS: 99281

== ENCOUNTER 2018-07-30 12:53 | Emergency (ER) | payer OTHER ==
[~2018-07-30] VITALS: Ht 165.1 cm; Wt 72.6 kg
[2018-07-30] MEDS ORDERED: IPRATRPIUM/ALBUTEROL 0.5/2.5MG 3 ML NEBU. NEB ONE (13:15)
[2018-07-30] MEDS ORDERED: IV NORMAL SALINE 1000ML BAG 1,000 ML IV ONE (13:15)
--- NOTE | 2018-07-30 13:30 | RAD ---
CHEST PA LATERAL History: SOA, COUGH X5 DAY Comparison: Chest radiograph dated 07/14/2018. Findings: Normal lung volume. No focal consolidation. Normal pulmonary vasculature. No pleural effusion or pneumothorax. The cardiomediastinal silhouette is normal. The great vessels of the thorax are normal. No acute osseous abnormality. Moderate multilevel degenerative changes of the visualized spine. IMPRESSION: No acute cardiopulmonary process. Electronically signed by: Omar Dang MD (07/30/2018 1:26 PM) [facility]
[2018-07-30] MEDS ORDERED: ACETAMINOPHEN 500 MG TABLET PO ONE (13:45)
[2018-07-30 14:11] LABS: BASO % 0 % (0-3); EOS # 0.1 x10^3/uL (0.0-0.7); EOS % 1 % (0-3); HEMATOCRIT 34.7 % (36.0-47.0); HEMOGLOBIN 11.7 g/dL (12.0-15.5); LYMPH # 1.2 x10^3/uL (1.0-4.8); LYMPH % 10 % (24-48); MEAN CORPUSCULAR HEMOGLOBIN 30 pg (25-35); MEAN CORPUSCULAR HGB CONC 34 g/dL (31-37); MEAN CORPUSCULAR VOLUME 88 fL (79-100); MONO # 0.4 x10^3/uL (0.0-1.1); MONO % 3 % (0-9); NEUT # 10.9 x10^3uL (1.8-7.7); NEUT % 86 % (31-73); PLATELET COUNT 465 x10^3/uL (140-400); RED BLOOD COUNT 3.92 x10^6/uL (3.50-5.40); RED CELL DISTRIBUTION WIDTH 15.4 % (11.5-14.5); WHITE BLOOD COUNT 12.6 x10^3/uL (4.0-11.0)
[2018-07-30 14:21] LABS: GFR 58.2; POTASSIUM 4.3 mmol/L (3.5-5.1)
[2018-07-30 14:27] LABS: ALBUMIN 3.2 g/dL (3.4-5.0); ALBUMIN/GLOBULIN RATIO 0.8 (1.0-1.7); TOTAL BILIRUBIN 0.3 mg/dL (0.2-1.0); TOTAL PROTEIN 7.3 g/dL (6.4-8.2)
[2018-07-30 14:34] LABS: % LYMPHS 8 % (24-48); % MONOS 2 % (0-10); % SEGS 90 % (35-66); PLT ESTIMATE ADEQUATE (ADEQUATE)
[2018-07-30 14:50] LABS: BILIRUBIN,URINE NEGATIVE (NEG); CLARITY,URINE CLEAR; COLOR,URINE YELLOW; NITRITE,URINE NEGATIVE (NEG); PH,URINE 7.5; PROTEIN,URINE NEGATIVE (NEG-TRACE); UROBILINOGEN,URINE 0.2 mg/dL (0.2 mg/dL)
[2018-07-30 14:57] LABS: BACTERIA,URINE 0 /HPF (0-FEW); RBC,URINE 0 /HPF (0-2); SQUAMOUS EPITHELIAL CELL,UR OCC /LPF; WBC,URINE 0 /HPF (0-4)
--- NOTE | 2018-07-30 15:15 | PHYS DOC ---
Past Medical History Past Medical History: Other Additional Past Medical Histor: CHRONIC BACK PAIN, CHRONIC PAIN, MED SEEKING BEHAVIOR Past Surgical History: Other Additional Past Surgical Histo: back, left arm Alcohol Use: None Drug Use: None Adult General Chief Complaint Chief Complaint: CHEST PAIN HPI HPI Patient is a 52 year old female who presents with reported chest wall pain, cough and generalized pain. The patient is well known to this facility and has a long history of drug-seeking behavior. She states that her cough has been going on for approximately one week. She does have a follow-up appointment with her primary care provider for this coming Wednesday. She denies fever, congestion or sore throat. She is a smoker. Review of Systems Review of Systems Constitutional: Denies fever or chills [] Eyes: Denies change in visual acuity, redness, or eye pain [] HENT: Denies nasal congestion or sore throat [] Respiratory: See history of present illness Cardiovascular: No additional information not addressed in HPI [] GI: Denies abdominal pain, nausea, vomiting, bloody stools or diarrhea [] : Denies dysuria or hematuria [] Musculoskeletal: Denies back pain or joint pain [] Integument: Denies rash or skin lesions [] Neurologic: Denies headache, focal weakness or sensory changes [] Endocrine: Denies polyuria or polydipsia [] All other systems were reviewed and found to be within normal limits, except as documented in this note. Current Medications Current Medications Current Medications Medications (Trade) Dose Ordered Sig/Jayy Start Time Stop Time Status Last Admin Dose Admin Acetaminophen (Tylenol) 1,000 mg 1X ONCE 07/30/18 13:45 07/30/18 13:46 DC Albuterol/ Ipratropium (Duoneb) 3 ml 1X ONCE 07/30/18 13:15 07/30/18 13:16 DC 07/30/18 13:17 3 ML Sodium Chloride 1,000 ml @ 1,000 mls/hr 1X ONCE 07/30/18 13:15 07/30/18 14:14 DC 07/30/18 13:13 1,000 MLS/HR Allergies Allergies Allergies Coded Allergies Type Severity Reaction Last Updated Verified ibuprofen Allergy Intermediate rash, TOLERATES KETOROLAC 04/08/18 Yes naproxen Allergy Intermediate rash, TOLERATES KETOROLAC 04/08/18 Yes acetaminophen Allergy Unknown 07/30/18 Yes Physical Exam Physical Exam Constitutional: Well developed, well nourished, no acute distress, non-toxic appearance. [] HENT: Normocephalic, atraumatic, bilateral external ears normal, oropharynx moist, no oral exudates, nose normal. [] Eyes: PERRLA, EOMI, conjunctiva normal, no discharge. [] Neck: Normal range of motion, no tenderness, supple, no stridor. [] Cardiovascular:Heart rate regular rhythm, no murmur [] Lungs & Thorax: Bilateral breath sounds slightly decreased at bases with a mild cough noted Abdomen: Bowel sounds normal, soft, no tenderness, no masses, no pulsatile masses. [] Skin: Warm, dry, no erythema, no rash. [] Back: No tenderness, no CVA tenderness. [] Extremities: No tenderness, no cyanosis, no clubbing, ROM intact, no edema. [] Neurologic: Alert and oriented X 3, normal motor function, normal sensory function, no focal deficits noted. [] Psychologic: Affect normal, judgement normal, mood normal. [] Current Patient Data Vital Signs Vital Signs Date Time Temp Pulse Resp B/P (MAP) Pulse Ox O2 Delivery O2 Flow Rate FiO2 07/30/18 15:22 60 18 134/82 (99) 100 Room Air 07/30/18 12:55 98.5 98.5 Lab Values Laboratory Tests Test 07/30/18 14:00 07/30/18 14:35 07/30/18 14:43 White Blood Count 12.6 x10^3/uL (4.0-11.0) H Red Blood Count 3.92 x10^6/uL (3.50-5.40) Hemoglobin 11.7 g/dL (12.0-15.5) L Hematocrit 34.7 % (36.0-47.0) L Mean Corpuscular Volume 88 fL (79-100) Mean Corpuscular Hemoglobin 30 pg (25-35) Mean Corpuscular Hemoglobin Concent 34 g/dL (31-37) Red Cell Distribution Width 15.4 % (11.5-14.5) H Platelet Count 465 x10^3/uL (140-400) H Neutrophils (%) (Auto) 86 % (31-73) H Lymphocytes (%) (Auto) 10 % (24-48) L Monocytes (%) (Auto) 3 % (0-9) Eosinophils (%) (Auto) 1 % (0-3) Basophils (%) (Auto) 0 % (0-3) Neutrophils # (Auto) 10.9 x10^3uL (1.8-7.7) H Lymphocytes # (Auto) 1.2 x10^3/uL (1.0-4.8) Monocytes # (Auto) 0.4 x10^3/uL (0.0-1.1) Eosinophils # (Auto) 0.1 x10^3/uL (0.0-0.7) Basophils # (Auto) 0.0 x10^3/uL (0.0-0.2) Segmented Neutrophils % 90 % (35-66) H Lymphocytes % 8 % (24-48) L Monocytes % 2 % (0-10) Platelet Estimate Adequate (ADEQUATE) Large Platelets Occ Sodium Level 141 mmol/L (136-145) Potassium Level 4.3 mmol/L (3.5-5.1) Chloride Level 103 mmol/L (98-107) Carbon Dioxide Level 30 mmol/L (21-32) Anion Gap 8 (6-14) Blood Urea Nitrogen 18 mg/dL (7-20) Creatinine 1.0 mg/dL (0.6-1.0) Estimated GFR (Cockcroft-Gault) 58.2 BUN/Creatinine Ratio 18 (6-20) Glucose Level 120 mg/dL (70-99) H Calcium Level 9.0 mg/dL (8.5-10.1) Total Bilirubin 0.3 mg/dL (0.2-1.0) Aspartate Amino Transferase (AST) 10 U/L (15-37) L Alanine Aminotransferase (ALT) 26 U/L (14-59) Alkaline Phosphatase 77 U/L (46-116) Total Protein 7.3 g/dL (6.4-8.2) Albumin 3.2 g/dL (3.4-5.0) L Albumin/Globulin Ratio 0.8 (1.0-1.7) L Urine Collection Type Unknown Urine Color Yellow Urine Clarity Clear Urine pH 7.5 Urine Specific [place] 1.015 Urine Protein Negative mg/dL (NEG-TRACE) Urine Glucose (UA) Negative mg/dL (NEG) Urine Ketones (Stick) Negative mg/dL (NEG) Urine Blood Negative (NEG) Urine Nitrite Negative (NEG) Urine Bilirubin Negative (NEG) Urine Urobilinogen Dipstick 0.2 mg/dL (0.2 mg/dL) Urine Leukocyte Esterase Negative (NEG) Urine RBC 0 /HPF (0-2) Urine WBC 0 /HPF (0-4) Urine Squamous Epithelial Cells Occ /LPF Urine Bacteria 0 /HPF (0-FEW) POC Troponin I 0.00 ng/ml (<0.08) Laboratory Tests 07/30/18 14:00 Laboratory Tests 07/30/18 14:00 EKG EKG [] Radiology/Procedures Radiology/Procedures [] Course & Med Decision Making Course & Med Decision Making Pertinent Labs and Imaging studies reviewed. (See chart for details) []The patient has been requesting pain medication multiple times throughout her stay in the emergency department. I offered her Tylenol which she then stated she had an allergy. Acetaminophen has been added to her allergy list. The patient repeatedly requested tramadol which is her drug of choice. I declined to give her pain medication. Dragon Disclaimer Dragon Disclaimer This electronic medical record was generated, in whole or in part, using a voice recognition dictation system. Departure Departure Impression: Primary Impression: Chest pain Additional Impression: Cough Disposition: HOME, SELF-CARE Condition: STABLE Referrals: MARITZA ALCARAZ MD (PCP) Patient Instructions: Chest Wall Pain, Cough, Adult Additional Instructions: Follow-up with your primary care provider your scheduled appointment. Return to the emergency department if worsening. Problem Qualifiers SAGRA TABOR APRN Jul 30, 2018 15:15
[2018-07-30 15:22] VITALS: BP 134/82
--- NOTE | 2018-07-31 08:10 | EKG ---
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
== END 2018-07-30 15:15 | disposition home or self-care (01) ==
LOC: ER 12:53
DX: R07.89 Other chest pain (principal); R05 Cough; R52 Pain, unspecified; G89.29 Other chronic pain; Z76.5 Malingerer [conscious simulation]; Z98.890 Other specified postprocedural states; Z88.5 Allergy status to narcotic agent; Z88.6 Allergy status to analgesic agent; Z88.8 Allergy status to other drugs, medicaments and biological substances
CPT/HCPCS: 36415; 71046; 80053; 81001; 84484; 85007; 85025; 93005; 94640; 99285; J7030; J7620; 99283

== ENCOUNTER 2018-08-15 18:45 | Emergency (ER) | payer OTHER ==
[~2018-08-15] VITALS: Ht 165.1 cm; Wt 72.6 kg
[2018-08-15 19:30] VITALS: BP 135/77
--- NOTE | 2018-08-15 21:16 | PHYS DOC ---
Past Medical History Past Medical History: Other Additional Past Medical Histor: CHRONIC BACK PAIN, CHRONIC PAIN, MED SEEKING BEHAVIOR Past Surgical History: Other Additional Past Surgical Histo: back, left arm Alcohol Use: None Drug Use: None Adult General Chief Complaint Chief Complaint: BACK PAIN OR INJURY HPI HPI Patient is a 52 year old female with female with back pain she's been in this emergency room 10 times in the last 30 days for similar symptoms. No new finding she just wants a shot she tells me Review of Systems Review of Systems Negative for numbness or tingling negative for bowel or bladder incontinence negative for fever Allergies Allergies Allergies Coded Allergies Type Severity Reaction Last Updated Verified ibuprofen Allergy Intermediate rash, TOLERATES KETOROLAC 04/08/18 Yes naproxen Allergy Intermediate rash, TOLERATES KETOROLAC 04/08/18 Yes acetaminophen Allergy Unknown 07/30/18 Yes Physical Exam Physical Exam Constitutional: Well developed, well nourished, no acute distress, non-toxic appearance. [] HENT: Normocephalic, atraumatic, bilateral external ears normal, oropharynx moist, no oral exudates, nose normal. [] Eyes: PERRLA, EOMI, conjunctiva normal, no discharge. [] Neck: Normal range of motion, no tenderness, supple, no stridor. [] Cardiovascular:Heart rate regular rhythm, no murmur [] Lungs & Thorax: Bilateral breath sounds clear to auscultation [] Abdomen: Bowel sounds normal, soft, no tenderness, no masses, no pulsatile masses. [] Skin: Warm, dry, no erythema, no rash. [] Back: Paraspinous bilateral tenderness Extremities: No tenderness, no cyanosis, no clubbing, ROM intact, no edema. [] Neurologic: Alert and oriented X 3, normal motor function, normal sensory function, no focal deficits noted. [] Psychologic: Affect normal, judgement normal, mood normal. [] Current Patient Data Vital Signs Vital Signs Date Time Temp Pulse Resp B/P (MAP) Pulse Ox O2 Delivery O2 Flow Rate FiO2 08/15/18 19:30 98.9 98 16 135/77 (96) 98 Room Air 98.9 EKG EKG [] Radiology/Procedures Radiology/Procedures [] Course & Med Decision Making Course & Med Decision Making Pertinent Labs and Imaging studies reviewed. (See chart for details) []Chronic back pain frequent ER user requested a shot of medication for pain. She has multiple allergies again I did tell her that narcotics were not her solution especially here in the emergency room and advised her to continue to get pain management follow-up. No new red flags noted on her visit today. Dragon Disclaimer Dragon Disclaimer This electronic medical record was generated, in whole or in part, using a voice recognition dictation system. Departure Departure Impression: Primary Impression: Chronic low back pain Disposition: HOME, SELF-CARE Condition: STABLE Referrals: MARITZA ALCARAZ MD (PCP) Patient Instructions: Back Pain, Adult, [id number] KATHY CASON MD Aug 15, 2018 21:16
== END 2018-08-15 20:10 | disposition home or self-care (01) ==
LOC: ER 18:45
DX: G89.29 Other chronic pain (principal); M54.5 Low back pain; Z76.5 Malingerer [conscious simulation]; Z88.5 Allergy status to narcotic agent; Z88.6 Allergy status to analgesic agent; Z88.8 Allergy status to other drugs, medicaments and biological substances
CPT/HCPCS: 99281

== ENCOUNTER 2018-08-31 20:22 | Emergency (ER) | payer OTHER ==
[~2018-08-31] VITALS: Ht 165.1 cm; Wt 122.0 kg
[~2018-08-31 20:22] MED LIST changes: +CLON1TAB11 PO; -CLON1TAB4 PO
[2018-08-31 21:27] VITALS: BP 134/96
[2018-08-31 22:13] LABS: BASO # 0.1 x10^3/uL (0.0-0.2); BASO % 1 % (0-3); EOS # 0.3 x10^3/uL (0.0-0.7); EOS % 3 % (0-3); HEMATOCRIT 35.1 % (36.0-47.0); HEMOGLOBIN 11.8 g/dL (12.0-15.5); LYMPH # 2.1 x10^3/uL (1.0-4.8); LYMPH % 28 % (24-48); MEAN CORPUSCULAR HEMOGLOBIN 29 pg (25-35); MEAN CORPUSCULAR HGB CONC 34 g/dL (31-37); MEAN CORPUSCULAR VOLUME 87 fL (79-100); MONO # 0.6 x10^3/uL (0.0-1.1); MONO % 8 % (0-9); NEUT # 4.3 x10^3uL (1.8-7.7); NEUT % 59 % (31-73); PLATELET COUNT 472 x10^3/uL (140-400); RED BLOOD COUNT 4.04 x10^6/uL (3.50-5.40); RED CELL DISTRIBUTION WIDTH 15.2 % (11.5-14.5); WHITE BLOOD COUNT 7.4 x10^3/uL (4.0-11.0)
--- NOTE | 2018-08-31 22:20 | PHYS DOC ---
Past Medical History Past Medical History: Other Additional Past Medical Histor: CHRONIC BACK PAIN, CHRONIC PAIN, MED SEEKING BEHAVIOR Past Surgical History: Other Additional Past Surgical Histo: back, left arm Alcohol Use: None Drug Use: None Adult General Chief Complaint Chief Complaint: LOWER EXTREMITY SWELLING HPI HPI 52-year-old female well known to the emergency department presents with report of progressing bilateral lower extremity edema. Patient reports his been ongoing for the last 5 days. Patient was recently admitted and discharged 2 days ago for right lower extremity cellulitis. Patient was given prescription for Keflex which patient reports she has continued. Denies any fever or chills. Denies known trauma. Denies increased redness. Patient denies any pleuritic chest pain or shortness of breath. Review of Systems Review of Systems Constitutional: Denies fever or chills [] Eyes: Denies change in visual acuity, redness, or eye pain [] HENT: Denies nasal congestion or sore throat [] Respiratory: Denies cough or shortness of breath [] Cardiovascular: Denies chest pain or palpitations GI: Denies abdominal pain, nausea, vomiting, or diarrhea [] : Denies dysuria or hematuria [] Musculoskeletal: Bilateral lower extremity edema, chronic back pain Integument: Denies rash or skin lesions [] Neurologic: Denies headache, focal weakness or sensory changes [] Complete systems were reviewed and found to be within normal limits, except as documented in this note. Allergies Allergies Allergies Coded Allergies Type Severity Reaction Last Updated Verified ibuprofen Allergy Intermediate rash, TOLERATES KETOROLAC 04/08/18 Yes naproxen Allergy Intermediate rash, TOLERATES KETOROLAC 04/08/18 Yes Physical Exam Physical Exam Constitutional: Well developed, well nourished, no acute distress, non-toxic appearance. [] HENT: Normocephalic, atraumatic, oropharynx moist Eyes: Conjunctiva normal, no discharge. [] Neck: Normal range of motion, no tenderness, supple, no stridor. [] Cardiovascular: Heart rate regular rhythm, no murmur [] Lungs & Thorax: Bilateral breath sounds clear to auscultation [] Abdomen: Soft, no tenderness Skin: Warm, dry, no erythema, no rash. [] Back: No midline tenderness, lumbar paraspinal tenderness- chronic Extremities: No tenderness, ROM intact, BLE 2+ pitting Neurologic: Alert and oriented X 3, no focal deficits noted. [] Psychologic: Affect normal, judgement normal, mood normal. [] Current Patient Data Vital Signs Vital Signs Date Time Temp Pulse Resp B/P (MAP) Pulse Ox O2 Delivery O2 Flow Rate FiO2 08/31/18 21:27 98.5 98 17 134/96 (109) 98 Room Air 98.5 Lab Values Laboratory Tests Test 08/31/18 22:01 White Blood Count 7.4 x10^3/uL (4.0-11.0) Red Blood Count 4.04 x10^6/uL (3.50-5.40) Hemoglobin 11.8 g/dL (12.0-15.5) L Hematocrit 35.1 % (36.0-47.0) L Mean Corpuscular Volume 87 fL (79-100) Mean Corpuscular Hemoglobin 29 pg (25-35) Mean Corpuscular Hemoglobin Concent 34 g/dL (31-37) Red Cell Distribution Width 15.2 % (11.5-14.5) H Platelet Count 472 x10^3/uL (140-400) H Neutrophils (%) (Auto) 59 % (31-73) Lymphocytes (%) (Auto) 28 % (24-48) Monocytes (%) (Auto) 8 % (0-9) Eosinophils (%) (Auto) 3 % (0-3) Basophils (%) (Auto) 1 % (0-3) Neutrophils # (Auto) 4.3 x10^3uL (1.8-7.7) Lymphocytes # (Auto) 2.1 x10^3/uL (1.0-4.8) Monocytes # (Auto) 0.6 x10^3/uL (0.0-1.1) Eosinophils # (Auto) 0.3 x10^3/uL (0.0-0.7) Basophils # (Auto) 0.1 x10^3/uL (0.0-0.2) Prothrombin Time 12.5 SEC (11.7-14.0) Prothrombin Time INR 1.0 (0.8-1.1) PTT 30 SEC (24-38) Sodium Level 140 mmol/L (136-145) Potassium Level 4.0 mmol/L (3.5-5.1) Chloride Level 103 mmol/L (98-107) Carbon Dioxide Level 31 mmol/L (21-32) Anion Gap 6 (6-14) Blood Urea Nitrogen 14 mg/dL (7-20) Creatinine 0.9 mg/dL (0.6-1.0) Estimated GFR (Cockcroft-Gault) 65.8 BUN/Creatinine Ratio 16 (6-20) Glucose Level 95 mg/dL (70-99) Calcium Level 9.0 mg/dL (8.5-10.1) Magnesium Level 2.0 mg/dL (1.8-2.4) Total Bilirubin 0.3 mg/dL (0.2-1.0) Aspartate Amino Transferase (AST) 24 U/L (15-37) Alanine Aminotransferase (ALT) 36 U/L (14-59) Alkaline Phosphatase 77 U/L (46-116) NX-Zyf-[id number]-Type Natriuretic Peptide 211 pg/mL (0-124) H Total Protein 7.7 g/dL (6.4-8.2) Albumin 3.3 g/dL (3.4-5.0) L Albumin/Globulin Ratio 0.8 (1.0-1.7) L Laboratory Tests 08/31/18 22:01 Laboratory Tests 08/31/18 22:01 EKG EKG [] Radiology/Procedures Radiology/Procedures PROCEDURE: VENOUS LOWER EXT BILATERAL Bilateral Lower Extremity Venous Doppler Ultrasound Indication: Worsening bilateral lower extremity edema. Comparison: Same examination August 28, 2018. Procedure: Color Doppler, spectral Doppler, and grayscale images with and without compression are obtained in the area of the common femoral vein, superficial femoral vein - femoral vein junction, main femoral vein (superficial femoral vein) and popliteal vein. Veins of the proximal calf are also imaged. Findings: There is normal duplex flow, color flow and compressibility of all visualized vein segments. There is no evidence of deep venous thrombosis. Impression: No evidence of lower extremity deep venous thrombosis. Electronically signed by: Cruz Camarena MD (08/31/2018 10:53 PM) [facility] PROCEDURE: CHEST PA & LATERAL PROCEDURE: CHEST PA LATERAL CLINICAL INDICATION: Bilateral leg swelling COMPARISON: 07/30/2018 FINDINGS: No pneumothorax identified. Cardiac and mediastinal contours unremarkable. No pulmonary consolidation or acute airspace disease. No acute osseous abnormalities identified. IMPRESSION: No pulmonary consolidation or acute airspace disease. Electronically signed by: Warren Jerez DO (08/31/2018 10:53 PM) [facility] Course & Med Decision Making Course & Med Decision Making Pertinent Labs and Imaging studies reviewed. (See chart for details) Patient presents with bilateral lower extremity edema which is been ongoing for last 5 days. Patient recently admitted to hospital for right lower extremity cellulitis and is currently taking antibiotics. Patient denies any shortness of breath or pleuritic pain. History of negative venous Doppler on 08/28/2018. Labs obtained and posted to chart. Venous Doppler repeated and continues to be negative. Chest x-ray clear. JB zuleta applied. Patient stable for discharge with outpatient follow-up with PCP. Discussed findings and plan with patient and family, who acknowledge understanding and agreement. Dragon Disclaimer Dragon Disclaimer This electronic medical record was generated, in whole or in part, using a voice recognition dictation system. Departure Departure Impression: Primary Impression: Bilateral lower extremity edema Additional Impression: Chronic back pain Disposition: 01 HOME, SELF-CARE Condition: STABLE Referrals: MARITZA ALCARAZ MD (PCP) Patient Instructions: Chronic Pain Management, Compression Stockings, Edema, [id number] Problem Qualifiers Additional Impression: Chronic back pain Back pain location: low back pain Back pain laterality: unspecified Sciatica presence: unspecified whether sciatica present Qualified Codes: M54.5 - Low back pain; G89.29 - Other chronic pain CRUZ ABERNATHY DO Aug 31, 2018 22:20
[2018-08-31 22:22] LABS: PROTHROMBIN TIME PATIENT 12.5 SEC (11.7-14.0)
[2018-08-31 22:25] LABS: CREATININE 0.9 mg/dL (0.6-1.0); GFR 65.8
[2018-08-31 22:32] LABS: ALBUMIN 3.3 g/dL (3.4-5.0); ALBUMIN/GLOBULIN RATIO 0.8 (1.0-1.7); TOTAL BILIRUBIN 0.3 mg/dL (0.2-1.0); TOTAL PROTEIN 7.7 g/dL (6.4-8.2)
--- NOTE | 2018-08-31 22:56 | RAD ---
Bilateral Lower Extremity Venous Doppler Ultrasound Indication: Worsening bilateral lower extremity edema. Comparison: Same examination August 28, 2018. Procedure: Color Doppler, spectral Doppler, and grayscale images with and without compression are obtained in the area of the common femoral vein, superficial femoral vein - femoral vein junction, main femoral vein (superficial femoral vein) and popliteal vein. Veins of the proximal calf are also imaged. Findings: There is normal duplex flow, color flow and compressibility of all visualized vein segments. There is no evidence of deep venous thrombosis. Impression: No evidence of lower extremity deep venous thrombosis. Electronically signed by: Cruz Camarena MD (08/31/2018 10:53 PM) [id number]
--- NOTE | 2018-08-31 22:57 | RAD ---
PROCEDURE: CHEST PA LATERAL CLINICAL INDICATION: Bilateral leg swelling COMPARISON: 07/30/2018 FINDINGS: No pneumothorax identified. Cardiac and mediastinal contours unremarkable. No pulmonary consolidation or acute airspace disease. No acute osseous abnormalities identified. IMPRESSION: No pulmonary consolidation or acute airspace disease. Electronically signed by: Warren Jerez DO (08/31/2018 10:53 PM) [facility]
[2018-08-31] MEDS ORDERED: HYDROcodone/APAP 5/325MG 1 TAB TABLET PO ONE (23:30)
== END 2018-08-31 23:24 | disposition home or self-care (01) ==
LOC: ER 20:22
DX: R60.0 Localized edema (principal); G89.29 Other chronic pain; M54.5 Low back pain; Z76.5 Malingerer [conscious simulation]; Z88.5 Allergy status to narcotic agent; Z88.8 Allergy status to other drugs, medicaments and biological substances
CPT/HCPCS: 36415; 71046; 80053; 83735; 83880; 85025; 85610; 85730; 93970; 99284-25

== ENCOUNTER 2018-09-03 12:37 | Emergency (ER) | payer OTHER ==
[~2018-09-03] VITALS: Ht 165.1 cm; Wt 72.6 kg
[2018-09-03 14:01] VITALS: BP 126/69
[2018-09-03] MEDS ORDERED: KETOROLAC 60 MG/2 ML INJ. IM ONE (14:30)
--- NOTE | 2018-09-03 14:34 | PHYS DOC ---
Past Medical History Past Medical History: Other Additional Past Medical Histor: chronic pain Past Surgical History: No Surgical History Additional Past Surgical Histo: back, left arm Alcohol Use: None Drug Use: None Adult General Chief Complaint Chief Complaint: MULTIPLE COMPLAINTS [facility] HPI Patient is a 52 year old female presents for evaluation of rt lower leg swelling. She c/o pain in the leg and requests pain medication. States she is out of Tramadol and has allergies to acetaminophen and ibuprofen. Denies fall or injury. She reports she is still taking the Keflex as prescribed for cellulitis. The redness is much better. She denies fevers, nausea or vomiting. Patient was seen in this emergency room 3 days ago and had bilateral lower extremity Dopplers that were negative for DVT. She was advised to continue antibiotics and follow-up with primary doctor. Patient tells me she does not have a primary care physician. Review of Systems Review of Systems Constitutional: Denies fever or chills [] Eyes: Denies change in visual acuity, redness, or eye pain [] HENT: Denies nasal congestion or sore throat [] Respiratory: Denies cough or shortness of breath [] Cardiovascular: No additional information not addressed in HPI [] GI: Denies abdominal pain, nausea, vomiting, bloody stools or diarrhea [] : Denies dysuria or hematuria [] Musculoskeletal: Denies back pain or joint pain [] Integument: Denies rash or skin lesions [] Neurologic: Denies headache, focal weakness or sensory changes [] Endocrine: Denies polyuria or polydipsia [] All other systems were reviewed and found to be within normal limits, except as documented in this note. Current Medications Current Medications Current Medications Medications (Trade) Dose Ordered Sig/Jayy Start Time Stop Time Status Last Admin Dose Admin Ketorolac Tromethamine (Toradol Im) 30 mg 1X ONCE 09/03/18 14:30 09/03/18 14:31 DC 09/03/18 14:49 30 MG Allergies Allergies Allergies Coded Allergies Type Severity Reaction Last Updated Verified ibuprofen Allergy Intermediate rash, TOLERATES KETOROLAC 04/08/18 Yes naproxen Allergy Intermediate rash, TOLERATES KETOROLAC 04/08/18 Yes Physical Exam Physical Exam Constitutional: Well developed, well nourished, no acute distress, non-toxic appearance. [] Neck: Normal range of motion, no tenderness, supple, no stridor. [] Cardiovascular:Heart rate regular rhythm, no murmur [] Lungs & Thorax: Bilateral breath sounds clear to auscultation [] Skin: Warm, dry, no erythema, no rash. [] Back: no CVA tenderness. [] Extremities: no cyanosis, no clubbing, ROM intact, RLE EDEMA NON-PITTING, NO ERYTHEMA OR WARMTH. [] Neurologic: Alert and oriented X 3, normal motor function, normal sensory function, no focal deficits noted. [] Psychologic: Affect normal, judgement normal, mood normal. [] Current Patient Data Vital Signs Vital Signs Date Time Temp Pulse Resp B/P (MAP) Pulse Ox O2 Delivery O2 Flow Rate FiO2 09/03/18 14:01 97.6 96 18 126/69 (88) 99 Room Air 97.6 Lab Values Laboratory Tests Test 09/03/18 14:32 White Blood Count 7.7 x10^3/uL (4.0-11.0) Red Blood Count 3.95 x10^6/uL (3.50-5.40) Hemoglobin 11.4 g/dL (12.0-15.5) L Hematocrit 34.5 % (36.0-47.0) L Mean Corpuscular Volume 87 fL (79-100) Mean Corpuscular Hemoglobin 29 pg (25-35) Mean Corpuscular Hemoglobin Concent 33 g/dL (31-37) Red Cell Distribution Width 15.8 % (11.5-14.5) H Platelet Count 502 x10^3/uL (140-400) H Neutrophils (%) (Auto) 64 % (31-73) Lymphocytes (%) (Auto) 26 % (24-48) Monocytes (%) (Auto) 6 % (0-9) Eosinophils (%) (Auto) 3 % (0-3) Basophils (%) (Auto) 1 % (0-3) Neutrophils # (Auto) 5.0 x10^3uL (1.8-7.7) Lymphocytes # (Auto) 2.0 x10^3/uL (1.0-4.8) Monocytes # (Auto) 0.4 x10^3/uL (0.0-1.1) Eosinophils # (Auto) 0.3 x10^3/uL (0.0-0.7) Basophils # (Auto) 0.1 x10^3/uL (0.0-0.2) Urine Collection Type Unknown Urine Color Yellow Urine Clarity Clear Urine pH 7.0 Urine Specific [place] 1.020 Urine Protein Negative mg/dL (NEG-TRACE) Urine Glucose (UA) Negative mg/dL (NEG) Urine Ketones (Stick) Negative mg/dL (NEG) Urine Blood Negative (NEG) Urine Nitrite Negative (NEG) Urine Bilirubin Negative (NEG) Urine Urobilinogen Dipstick 0.2 mg/dL (0.2 mg/dL) Urine Leukocyte Esterase Negative (NEG) Urine RBC 3-5 /HPF (0-2) Urine WBC Occ /HPF (0-4) Urine Squamous Epithelial Cells Mod /LPF Urine Bacteria 0 /HPF (0-FEW) Urine Mucus Mod /LPF Sodium Level 143 mmol/L (136-145) Potassium Level 3.8 mmol/L (3.5-5.1) Chloride Level 104 mmol/L (98-107) Carbon Dioxide Level 29 mmol/L (21-32) Anion Gap 10 (6-14) Blood Urea Nitrogen 18 mg/dL (7-20) Creatinine 0.9 mg/dL (0.6-1.0) Estimated GFR (Cockcroft-Gault) 65.8 BUN/Creatinine Ratio 20 (6-20) Glucose Level 93 mg/dL (70-99) Calcium Level 9.3 mg/dL (8.5-10.1) Total Bilirubin 0.3 mg/dL (0.2-1.0) Aspartate Amino Transferase (AST) 16 U/L (15-37) Alanine Aminotransferase (ALT) 28 U/L (14-59) Alkaline Phosphatase 82 U/L (46-116) Total Protein 7.7 g/dL (6.4-8.2) Albumin 3.4 g/dL (3.4-5.0) Albumin/Globulin Ratio 0.8 (1.0-1.7) L Laboratory Tests 09/03/18 14:32 Laboratory Tests 09/03/18 14:32 EKG EKG [] Radiology/Procedures Radiology/Procedures [] Course & Med Decision Making Course & Med Decision Making Pertinent Labs and Imaging studies reviewed. (See chart for details) [Labs within normal limits, edema lower extremity appears to be dependent peripheral edema, no evidence of cellulitis, patient is still taking antibiotics. Recommend to patient that she elevate her legs to help decrease edema. She should also follow up with primary care doctor in 2-3 days, patient requesting prescription for pain medication, I explained that she needs to finish the antibiotics previously prescribed, no pain medications prescribed at this visit.] Dragon Disclaimer Dragon Disclaimer This electronic medical record was generated, in whole or in part, using a voice recognition dictation system. Departure Departure Impression: Primary Impression: Leg edema, right Disposition: 01 HOME, SELF-CARE Condition: STABLE Referrals: MARITZA ALCARAZ MD (PCP) Patient Instructions: Peripheral Edema ANNE-MARIE GEE STAINED GLASS WINDOW DESIGNER Sep 03, 2018 14:34
[2018-09-03 15:00] LABS: BILIRUBIN,URINE NEGATIVE (NEG); CLARITY,URINE CLEAR; COLOR,URINE YELLOW; NITRITE,URINE NEGATIVE (NEG); PROTEIN,URINE NEGATIVE (NEG-TRACE); UROBILINOGEN,URINE 0.2 mg/dL (0.2 mg/dL)
[2018-09-03 15:03] LABS: BASO # 0.1 x10^3/uL (0.0-0.2); BASO % 1 % (0-3); EOS # 0.3 x10^3/uL (0.0-0.7); EOS % 3 % (0-3); HEMATOCRIT 34.5 % (36.0-47.0); HEMOGLOBIN 11.4 g/dL (12.0-15.5); LYMPH % 26 % (24-48); MEAN CORPUSCULAR HEMOGLOBIN 29 pg (25-35); MEAN CORPUSCULAR HGB CONC 33 g/dL (31-37); MEAN CORPUSCULAR VOLUME 87 fL (79-100); MONO # 0.4 x10^3/uL (0.0-1.1); MONO % 6 % (0-9); NEUT % 64 % (31-73); PLATELET COUNT 502 x10^3/uL (140-400); RED BLOOD COUNT 3.95 x10^6/uL (3.50-5.40); RED CELL DISTRIBUTION WIDTH 15.8 % (11.5-14.5); WHITE BLOOD COUNT 7.7 x10^3/uL (4.0-11.0)
[2018-09-03 15:06] LABS: CALCIUM 9.3 mg/dL (8.5-10.1); CREATININE 0.9 mg/dL (0.6-1.0); GFR 65.8; POTASSIUM 3.8 mmol/L (3.5-5.1)
[2018-09-03 15:10] LABS: SQUAMOUS EPITHELIAL CELL,UR MOD /LPF
[2018-09-03 15:11] LABS: BACTERIA,URINE 0 /HPF (0-FEW); WBC,URINE OCC /HPF (0-4)
[2018-09-03 15:12] LABS: ALBUMIN 3.4 g/dL (3.4-5.0); ALBUMIN/GLOBULIN RATIO 0.8 (1.0-1.7); TOTAL BILIRUBIN 0.3 mg/dL (0.2-1.0); TOTAL PROTEIN 7.7 g/dL (6.4-8.2)
== END 2018-09-03 15:30 | disposition home or self-care (01) ==
LOC: ER 12:37
DX: R60.0 Localized edema (principal); G89.29 Other chronic pain; Z88.5 Allergy status to narcotic agent; Z88.8 Allergy status to other drugs, medicaments and biological substances
CPT/HCPCS: 36415; 80053; 81001; 85025; 96372; 99283; J1885

== ENCOUNTER 2018-09-24 22:55 | Emergency (ER) | payer OTHER ==
[~2018-09-24] VITALS: Ht 167.6 cm; Wt 81.6 kg
[~2018-09-24 22:55] MED LIST changes: -GABA-586 PO; +GABA300C18 PO; -OXYC-323 PO; +OXYC1TAB15 PO
[2018-09-24 23:07] VITALS: BP 138/64
--- NOTE | 2018-09-24 23:22 | PHYS DOC ---
Past Medical History Past Medical History: Other Additional Past Medical Histor: chronic pain Past Surgical History: No Surgical History Additional Past Surgical Histo: back, left arm Alcohol Use: None Drug Use: None Adult General Chief Complaint Chief Complaint: LOWER EXT PAIN HPI HPI Patient is a 52 year old female who presents today complaining of 10 out of 10 left knee pain that began 3 days ago after she fell. Denies any loss of consciousness. States the pain is worse on weight-bearing. Describes the pain as sharp and intermittent. Patient ambulated to the room with no difficulties. Review of Systems Review of Systems Constitutional: Denies fever or chills [] Musculoskeletal: Reports left knee pain Integument: Denies rash or skin lesions [] Neurologic: Denies headache, focal weakness or sensory changes [] All other systems were reviewed and found to be within normal limits, except as documented in this note. Current Medications Current Medications Current Medications Medications (Trade) Dose Ordered Sig/Jayy Start Time Stop Time Status Last Admin Dose Admin Acetaminophen (Tylenol) 1,000 mg 1X ONCE 09/24/18 23:30 09/24/18 23:31 DC 09/24/18 23:23 1,000 MG Cyclobenzaprine HCl (Flexeril) 10 mg 1X ONCE 09/24/18 23:30 09/24/18 23:31 DC 09/24/18 23:23 10 MG Allergies Allergies Allergies Coded Allergies Type Severity Reaction Last Updated Verified ibuprofen Allergy Intermediate rash, TOLERATES KETOROLAC 04/08/18 Yes naproxen Allergy Intermediate rash, TOLERATES KETOROLAC 04/08/18 Yes Physical Exam Physical Exam Constitutional: Well developed, well nourished, no acute distress, non-toxic appearance. [] Skin: Warm, dry, no erythema, no rash. [] Back: No tenderness, no CVA tenderness. [] Extremities: Left lower extremity with no obvious deformity, bruising noted on the left anterior knee as well as proximal [place]ar. Tenderness diffusely on the left knee, full range of motion to the left knee, negative Kenrick sign and negative Gunnar's sign negative anterior-posterior drawer sign. +2 left pedal pulse. Cap refill less than 2 seconds left toes. Neurologic: Alert and oriented X 3, normal motor function, normal sensory function, no focal deficits noted. [] Psychologic: Affect normal, judgement normal, mood normal. [] Current Patient Data Vital Signs Vital Signs Date Time Temp Pulse Resp B/P (MAP) Pulse Ox O2 Delivery O2 Flow Rate FiO2 09/24/18 23:07 98.2 80 22 138/64 (88) 98 Room Air 98.2 EKG EKG [] Radiology/Procedures Radiology/Procedures XR of left knee and tib/fib: (preliminary interpretation by ED physician): NO acute fracture/dislocation Course & Med Decision Making Course & Med Decision Making Pertinent Labs and Imaging studies reviewed. (See chart for details) This is a 52-year-old female patient well known to this ED for pain related complaints presenting today complaining of left knee pain after falling 3 days ago. Left knee and left tib-fib x-rays interpreted by Dr. Abernathy are negative for any acute findings. Ben bandage applied to the left knee by me. Neurovascular exam is intact. Ice elevation encouraged. Given prescription for Medrol Dosepak and cyclobenzaprine. Follow-up with open one week if pain continues. Dragon Disclaimer Dragon Disclaimer This electronic medical record was generated, in whole or in part, using a voice recognition dictation system. Departure Departure Impression: Primary Impression: Contusion of left knee Additional Impression: Fall from standing Disposition: 01 HOME, SELF-CARE Condition: STABLE Referrals: MARITZA ALCARAZ MD (PCP) STU SPENCER MD Follow-up in one week Patient Instructions: Contusion, [id number], Fall Prevention and Home Safety , Knee Pain, [id number] Additional Instructions: You were evaluated in the emergency room for left knee pain after falling. Your left knee x-rays as well as left lower extremity x-rays are negative for any acute findings. Wear the Ben bandage provided as needed and tolerated. Ice elevate the extremity. Take the medications prescribed as needed for pain. Scripts Cyclobenzaprine Hcl (CYCLOBENZAPRINE HCL) 10 Mg Tablet 1 TAB PO TID, #15 TAB Prov: MEMO NELSON ELECTROTYPE CASTER 09/25/18 Methylprednisolone (MEDROL) 4 Mg Tab.ds.pk 1 PKG PO UD, #1 PKG Prov: MEMO NELSON ELECTROTYPE CASTER 09/25/18 Attending Signature Attending Signature I have reviewed the PA/MARKETING SUPPORT COORDINATOR's note and plan of care. I was available for consultation as needed during the patient's visit in the emergency department. I agree with the clinical impression, plan, and disposition. Problem Qualifiers Primary Impression: Contusion of left knee Encounter type: initial encounter Qualified Codes: S80.02XA - Contusion of left knee, initial encounter Additional Impression: Fall from standing Encounter type: initial encounter Qualified Codes: W19.XXXA - Unspecified fall, initial encounter MEMO NELSON APRN Sep 24, 2018 23:22 MARIA D ABERNATHY DO Sep 25, 2018 00:45
[2018-09-24] MEDS ORDERED: CYCLOBENZAPRINE 10 MG TABLET. PO ONE (23:30)
[2018-09-24] MEDS ORDERED: ACETAMINOPHEN 500 MG TABLET PO ONE (23:30)
[2018-09-25] MEDS ORDERED: METH4TAB2 PO (00:05)
[2018-09-25] MEDS ORDERED: CYCL10TA2 PO (00:05)
--- NOTE | 2018-09-25 03:12 | RAD ---
KNEE LEFT 4V, TIBIA FIBULA LEFT Clinical Indication: FALL, TODAY. Comparison: Left ankle, 3 views, July 20, 2018. Findings: No obvious abnormality the ankle. No soft tissue swelling. No acute fracture of the tibia or fibula. No soft tissue swelling of the calf. No soft tissue swelling about the knee. Question tiny knee joint effusion. Patella in anatomic position. No acute fracture of the knee. There is moderate medial compartment narrowing. Tiny marginal osteophytes of the medial and lateral compartment. The mineralization is normal. IMPRESSION: No acute fracture. Electronically signed by: Brendan Rosenthal MD (09/25/2018 3:07 AM) [facility]
== END 2018-09-25 00:25 | disposition home or self-care (01) ==
LOC: ER 22:55
DX: S80.02XA Contusion of left knee, initial encounter (principal); G89.29 Other chronic pain; Z88.5 Allergy status to narcotic agent; Z88.8 Allergy status to other drugs, medicaments and biological substances; W18.39XA Other fall on same level, initial encounter; Y93.89 Activity, other specified; Y92.89 Other specified places as the place of occurrence of the external cause; Y99.8 Other external cause status
CPT/HCPCS: 73564; 73590; 99283

== ENCOUNTER 2018-09-25 01:36 | Emergency (ER) | payer OTHER ==
[~2018-09-25] VITALS: Ht 165.1 cm; Wt 81.6 kg
[2018-09-25 01:45] VITALS: BP 131/77
[2018-09-25] MEDS ORDERED: DEXAMETHASONE 4 MG TABLET PO ONE (02:00)
[2018-09-25] MEDS ORDERED: ORPHENADRINE CITRATE 60 MG/2 ML VIAL. IM ONE (02:00)
--- NOTE | 2018-09-25 02:00 | PHYS DOC ---
Past Medical History Past Medical History: Other Additional Past Medical Histor: chronic pain Past Surgical History: No Surgical History Additional Past Surgical Histo: back, left arm Alcohol Use: None Drug Use: None Adult General Chief Complaint Chief Complaint: BACK PAIN - NO INJURY HPI HPI 52 y/o female presents for re-evaluation from visit earlier this evening. Patient previously was seen for left knee pain with XR obtained which noted some signs of arthritis. Patient with history of chronic pain with concern for drug seeking behavior. Patient now reporting she has low back pain which has been ongoing for the last week after driving in a car for a long period of time. Denies known trauma. Denies rash. Denies dysuria or hematuria. Denies nausea or vomiting. Denies fever. Review of Systems Review of Systems Constitutional: Denies fever or chills [] Eyes: Denies change in visual acuity, redness, or eye pain [] GI: Denies nausea, vomiting, or diarrhea [] : Denies dysuria or hematuria [] Musculoskeletal: Reports back pain, denies leg swelling Integument: Denies rash or skin lesions [] Neurologic: Denies headache, focal weakness or sensory changes. Denies loss of bowel/bladder. Complete systems were reviewed and found to be within normal limits, except as documented in this note. Current Medications Current Medications Current Medications Medications (Trade) Dose Ordered Sig/Jayy Start Time Stop Time Status Last Admin Dose Admin Dexamethasone (Decadron) 4 mg STK-MED ONCE 09/25/18 02:04 09/25/18 02:12 DC Dexamethasone Sodium Phosphate (Decadron) 20 mg STK-MED ONCE 09/25/18 02:03 09/25/18 02:04 DC Orphenadrine Citrate (Norflex) 60 mg STK-MED ONCE 09/25/18 02:03 09/25/18 02:12 DC Allergies Allergies Allergies Coded Allergies Type Severity Reaction Last Updated Verified ibuprofen Allergy Intermediate rash, TOLERATES KETOROLAC 04/08/18 Yes naproxen Allergy Intermediate rash, TOLERATES KETOROLAC 04/08/18 Yes Physical Exam Physical Exam Constitutional: Well developed, well nourished, no acute distress, non-toxic appearance. [] HENT: Normocephalic, atraumatic, Eyes: Conjunctiva normal, no discharge. [] Neck: Normal range of motion, no tenderness, supple Cardiovascular: Heart rate regular rhythm, no murmur [] Lungs & Thorax: Bilateral breath sounds clear to auscultation [] Abdomen: Soft, no tenderness Skin: Warm, dry, no erythema, no rash. [] Back: No midline tenderness, no CVA tenderness, bilateral low lumbar paraspinal tenderness noted Extremities: No tenderness, ROM intact, no edema, pain with straight leg raise at 40 degrees on right and 30 degrees on left Neurologic: Alert and oriented X 3, normal motor function, normal sensory function, no focal deficits noted. [] Psychologic: Affect normal, judgement normal, mood normal. [] Current Patient Data Vital Signs Vital Signs Date Time Temp Pulse Resp B/P (MAP) Pulse Ox O2 Delivery O2 Flow Rate FiO2 09/25/18 01:45 97.9 81 20 131/77 (95) 98 Room Air 97.9 EKG EKG [] Radiology/Procedures Radiology/Procedures [] Course & Med Decision Making Course & Med Decision Making Patient well known to ED presents with report of low back pain without history of trauma. Afebrile. Denies dysuria or hematuria. Patient recently seen tonight for left knee/leg pain with XRs without notation of acute process. NO loss of bowel/bladder reported. No midline tenderness on exam. Abdomen non- peritoneal. Symptomatic treatment provided with IM Norflex and one time dose of oral dexamethasone. Patient stable for discharge home with outpatient follow -up with PCP. Patient previously prescribed muscle relaxer and anti- inflammatory medications. Discussed findings and plan with patient and family, who acknowledge understanding and agreement. Dragon Disclaimer Dragon Disclaimer This electronic medical record was generated, in whole or in part, using a voice recognition dictation system. Departure Departure Impression: Primary Impression: Lumbar pain Disposition: HOME, SELF-CARE Condition: STABLE Referrals: MARITZA ALCARAZ MD (PCP) Patient Instructions: Back Pain, Adult, [id number] Additional Instructions: Take medications previously from your visit earlier today for your back pain. MARIA D ABERNATHY DO Sep 25, 2018 02:00
[2018-09-25] MEDS ORDERED: DEXAMETHASONE SOD PHOS 20 MG/5 ML VIAL. ONE (02:03)
[2018-09-25] MEDS ORDERED: ORPHENADRINE CITRATE 60 MG/2 ML VIAL. ONE (02:03)
[2018-09-25] MEDS ORDERED: DEXAMETHASONE 4 MG TABLET ONE (02:04)
== END 2018-09-25 02:12 | disposition home or self-care (01) ==
LOC: ER 01:36
DX: M54.5 Low back pain (principal); M25.562 Pain in left knee; G89.29 Other chronic pain; Z98.890 Other specified postprocedural states; Z88.5 Allergy status to narcotic agent; Z88.8 Allergy status to other drugs, medicaments and biological substances
CPT/HCPCS: 96372; 99283; J2360; J8540

== ENCOUNTER 2018-09-28 19:16 | Emergency (ER) | payer OTHER ==
[~2018-09-28] VITALS: Ht 167.6 cm; Wt 81.6 kg
[2018-09-28 19:48] VITALS: BP 131/77
--- NOTE | 2018-09-28 20:04 | PHYS DOC ---
Past Medical History Past Medical History: Other Additional Past Medical Histor: chronic pain Past Surgical History: No Surgical History Additional Past Surgical Histo: back, left arm Alcohol Use: None Drug Use: None Adult General Chief Complaint Chief Complaint: BACK PAIN - NO INJURY [facility] HPI Patient is a 53 year old female who is well-known to the emergency department that presents to the emergency room with complaints of being out of her tramadol pain medication. Patient states that the medications that were prescribed on the did not help her chronic back pain. She is scheduled to see her primary care provider in 2 weeks. Patient states she simply wants one tramadol while here in the emergency room. She denies any new injury, cough, shortness breath, fever, dysuria, loss of bowel or bladder control, or saddle anesthesia. Review of Systems Review of Systems Constitutional: Denies fever or chills [] HENT: Denies nasal congestion or sore throat [] Respiratory: Denies cough or shortness of breath [] Cardiovascular: No additional information not addressed in HPI [] GI: Denies abdominal pain, nausea, vomiting, or diarrhea [] : Denies dysuria or hematuria [] Musculoskeletal: See history of present illness reports chronic right low back pain requesting a tramadol for pain relief Integument: Denies rash or skin lesions [] Neurologic: Denies headache, focal weakness or sensory changes [] All other systems were reviewed and found to be within normal limits, except as documented in this note. Current Medications Current Medications Current Medications Medications (Trade) Dose Ordered Sig/Jayy Start Time Stop Time Status Last Admin Dose Admin Tramadol HCl (Ultram) 50 mg 1X ONCE 09/28/18 20:15 09/28/18 20:15 DC 09/28/18 20:08 50 MG Allergies Allergies Allergies Coded Allergies Type Severity Reaction Last Updated Verified ibuprofen Allergy Intermediate rash, TOLERATES KETOROLAC 04/08/18 Yes naproxen Allergy Intermediate rash, TOLERATES KETOROLAC 04/08/18 Yes Physical Exam Physical Exam Constitutional: Well developed, well nourished, no acute distress, non-toxic appearance. [] HENT: Normocephalic, atraumatic, bilateral external ears normal, nose normal. [] Eyes: conjunctiva normal, no discharge. [] Neck: Normal range of motion, no tenderness, supple, no stridor. [] Skin: Warm, dry, no erythema, no rash. [] Back: Right lumbar paraspinal tenderness that radiates to right leg, patient ambulates with steady gait Extremities: No cyanosis, ROM intact Neurologic: Alert and oriented X 3, normal motor function, normal sensory function, no focal deficits noted. [] Psychologic: Affect normal, judgement normal, mood normal. [] Current Patient Data Vital Signs Vital Signs Date Time Temp Pulse Resp B/P (MAP) Pulse Ox O2 Delivery O2 Flow Rate FiO2 09/28/18 20:08 16 99 Room Air 09/28/18 19:48 99.0 62 131/77 (95) 99.0 EKG EKG [] Radiology/Procedures Radiology/Procedures [] Course & Med Decision Making Course & Med Decision Making Pertinent Labs and Imaging studies reviewed. (See chart for details) dx: Chronic back pain, drug-seeking behavior. She was given one 50 mg tablet of tramadol in the emergency department. She was advised to follow-up with her primary care doctor for future refills of her medications. [] Dragon Disclaimer Dragon Disclaimer This electronic medical record was generated, in whole or in part, using a voice recognition dictation system. Departure Departure Impression: Primary Impression: Chronic back pain Additional Impression: Drug-seeking behavior Disposition: 01 HOME, SELF-CARE Condition: STABLE Referrals: MARITZA ALCARAZ MD (PCP) Patient Instructions: Chronic Back Pain Additional Instructions: Follow-up with your primary care doctor for further treatment and evaluation of your back pain. A prescription for your pain medication will not be written today. Return to the emergency room if your symptoms worsen Problem Qualifiers Primary Impression: Chronic back pain Back pain location: low back pain Back pain laterality: right Sciatica presence: unspecified whether sciatica present Qualified Codes: M54.5 - Low back pain; G89.29 - Other chronic pain JEOVANNY STAHL FIELD PROJECT MANAGER Sep 28, 2018 20:04
[2018-09-28] MEDS ORDERED: traMADol 50 MG TABLET PO ONE (20:15)
== END 2018-09-28 20:10 | disposition home or self-care (01) ==
LOC: ER 19:16
DX: G89.29 Other chronic pain (principal); M54.5 Low back pain; Z76.5 Malingerer [conscious simulation]; Z98.890 Other specified postprocedural states; Z88.5 Allergy status to narcotic agent; Z88.8 Allergy status to other drugs, medicaments and biological substances
CPT/HCPCS: 99282

== ENCOUNTER 2018-10-09 20:21 | Emergency (ER) | payer OTHER ==
[~2018-10-09] VITALS: Ht 162.6 cm; Wt 81.6 kg
[2018-10-09 22:08] VITALS: BP 145/88
[2018-10-09] MEDS ORDERED: ALBU2.5V8 INH (22:11)
--- NOTE | 2018-10-09 22:12 | PHYS DOC ---
Past Medical History Past Medical History: Other Additional Past Medical Histor: chronic pain Past Surgical History: No Surgical History Additional Past Surgical Histo: back, left arm Alcohol Use: None Drug Use: None Adult General Chief Complaint Chief Complaint: RIB PAIN [facility] HPI Patient is a 53 year old [f__sex] who presents with [] Review of Systems Review of Systems Constitutional: Denies fever or chills [] Eyes: Denies change in visual acuity, redness, or eye pain [] HENT: Denies nasal congestion or sore throat [] Respiratory: Denies cough or shortness of breath [] Cardiovascular: No additional information not addressed in HPI [] GI: Denies abdominal pain, nausea, vomiting, bloody stools or diarrhea [] : Denies dysuria or hematuria [] Musculoskeletal: Denies back pain or joint pain [] Integument: Denies rash or skin lesions [] Neurologic: Denies headache, focal weakness or sensory changes [] Endocrine: Denies polyuria or polydipsia [] All other systems were reviewed and found to be within normal limits, except as documented in this note. Allergies Allergies Allergies Coded Allergies Type Severity Reaction Last Updated Verified ibuprofen Allergy Intermediate rash, TOLERATES KETOROLAC 04/08/18 Yes naproxen Allergy Intermediate rash, TOLERATES KETOROLAC 04/08/18 Yes Physical Exam Physical Exam Constitutional: Well developed, well nourished, no acute distress, non-toxic appearance. [] HENT: Normocephalic, atraumatic, bilateral external ears normal, oropharynx moist, no oral exudates, nose normal. [] Eyes: PERRLA, EOMI, conjunctiva normal, no discharge. [] Neck: Normal range of motion, no tenderness, supple, no stridor. [] Cardiovascular:Heart rate regular rhythm, no murmur [] Lungs & Thorax: Bilateral breath sounds clear to auscultation [] Abdomen: Bowel sounds normal, soft, no tenderness, no masses, no pulsatile masses. [] Skin: Warm, dry, no erythema, no rash. [] Back: No tenderness, no CVA tenderness. [] Extremities: No tenderness, no cyanosis, no clubbing, ROM intact, no edema. [] Neurologic: Alert and oriented X 3, normal motor function, normal sensory function, no focal deficits noted. [] Psychologic: Affect normal, judgement normal, mood normal. [] Current Patient Data Vital Signs Vital Signs Date Time Temp Pulse Resp B/P (MAP) Pulse Ox O2 Delivery O2 Flow Rate FiO2 10/09/18 22:08 84 20 145/88 (107) 100 Room Air 10/09/18 21:15 98.6 98.6 EKG EKG [] Radiology/Procedures Radiology/Procedures [] Course & Med Decision Making Course & Med Decision Making Pertinent Labs and Imaging studies reviewed. (See chart for details) [] Dragon Disclaimer Dragon Disclaimer This electronic medical record was generated, in whole or in part, using a voice recognition dictation system. Departure Departure Impression: Primary Impression: Cough Additional Impression: Rib pain Referrals: MARITZA ALCARAZ MD (PCP) Patient Instructions: Costochondritis, [id number] Additional Instructions: Use the inhaler as needed for times daily. Follow-up with Dr. Alcaraz tomorrow. Scripts Albuterol Sulfate (Proair Hfa) 8.5 Gm Hfa.aer.ad 1 PUFF INH PRN Q6HRS PRN for SHORTNESS OF BREATH, #1 INHALER Prov: SAGAR TABOR APRN 10/09/18 Problem Qualifiers SAGAR TABOR APRN Oct 09, 2018 22:12
== END 2018-10-09 22:20 | disposition home or self-care (01) ==
LOC: ER 20:21
DX: R07.81 Pleurodynia (principal); R05 Cough; Z88.8 Allergy status to other drugs, medicaments and biological substances
CPT/HCPCS: 99283

== ENCOUNTER 2018-10-18 17:57 | Emergency (ER) | payer OTHER ==
[~2018-10-18] VITALS: Ht 167.6 cm; Wt 81.6 kg
[~2018-10-18 17:57] MED LIST changes: +ALBU2.5V8 INH
[2018-10-18 19:27] VITALS: BP 136/69
[2018-10-18] MEDS ORDERED: CEPH500C PO (19:30)
--- NOTE | 2018-10-18 20:39 | PHYS DOC ---
Past Medical History Past Medical History: Other Additional Past Medical Histor: chronic pain Past Surgical History: No Surgical History Additional Past Surgical Histo: back, left arm Alcohol Use: None Drug Use: None Adult General Chief Complaint Chief Complaint: LOWEREXTREMITY INJURY HPI HPI Patient is a 53 year old female cut her left lower extremity and unknown object 2-3 days ago is becoming increasingly red and painful no other symptoms no fever. Allergies Allergies Allergies Coded Allergies Type Severity Reaction Last Updated Verified ibuprofen Allergy Intermediate rash, TOLERATES KETOROLAC 04/08/18 Yes naproxen Allergy Intermediate rash, TOLERATES KETOROLAC 04/08/18 Yes Physical Exam Physical Exam Constitutional: Well developed, well nourished, no acute distress, non-toxic appearance. [] HENT: Normocephalic, atraumatic, bilateral external ears normal, oropharynx moist, no oral exudates, nose normal. [] Eyes: PERRLA, EOMI, conjunctiva normal, no discharge. [] Neck: Normal range of motion, no tenderness, supple, no stridor. [] Cardiovascular:Heart rate regular rhythm, no murmur [] Lungs & Thorax: Bilateral breath sounds clear to auscultation [] Skin: Warm, dry, no erythema, no rash. [] Extremities: 2 cm erythema with a superficial abrasion noted to the left anterior [place] mild cellulitis is possible distal sensation and function is intact Neurologic: Alert and oriented X 3, normal motor function, normal sensory function, no focal deficits noted. [] Psychologic: Affect normal, judgement normal, mood normal. [] Current Patient Data Vital Signs Vital Signs Date Time Temp Pulse Resp B/P (MAP) Pulse Ox O2 Delivery O2 Flow Rate FiO2 10/18/18 19:27 97.8 93 20 136/69 (91) 96 Room Air 97.8 EKG EKG [] Radiology/Procedures Radiology/Procedures [] Course & Med Decision Making Course & Med Decision Making Pertinent Labs and Imaging studies reviewed. (See chart for details) []Mild cellulitis patient is very well-appearing overall. Provided Keflex was given return precautions were discussed Dragon Disclaimer Dragon Disclaimer This electronic medical record was generated, in whole or in part, using a voice recognition dictation system. Departure Departure Impression: Primary Impression: Cellulitis Additional Impression: Cellulitis of left lower extremity Disposition: HOME, SELF-CARE Condition: STABLE Patient Instructions: Cellulitis, Aorh-ty-Afub Scripts Cephalexin (CEPHALEXIN) 500 Mg Capsule 1 CAP PO QID, #28 CAP Prov: KATHY CASON MD 10/18/18 Problem Qualifiers KATHY CASON MD Oct 18, 2018 20:39
[2018-10-21] MEDS ORDERED: DOXY100C2 PO (19:27)
== END 2018-10-18 19:36 | disposition home or self-care (01) ==
LOC: ER 17:57
DX: S80.812A Abrasion, left lower leg, initial encounter (principal); L03.116 Cellulitis of left lower limb; G89.29 Other chronic pain; Z88.5 Allergy status to narcotic agent; Z88.8 Allergy status to other drugs, medicaments and biological substances; Y28.8XXA Contact with other sharp object, undetermined intent, initial encounter; Y93.89 Activity, other specified; Y92.89 Other specified places as the place of occurrence of the external cause; Y99.8 Other external cause status
CPT/HCPCS: 99283

== ENCOUNTER → 2018-10-21 | Emergency (ER) | payer OTHER ==
[~2018-10-21] VITALS: Ht 165.1 cm; Wt 90.7 kg
[~2018-10-21] MED LIST changes: +CEPH500C PO; +DIPHTH,PERTUSS(ACELL),TET TOX 0.5 ML DISP.SYRIN. VAX IM ONE; +DOXY100C2 PO; +cefTRIAXone IM 1 GM VIAL IM ONE
[2018-10-21 18:52] VITALS: BP 134/81
--- NOTE | 2018-10-21 19:32 | PHYS DOC ---
Past Medical History Past Medical History: Other Additional Past Medical Histor: chronic pain Past Surgical History: No Surgical History Additional Past Surgical Histo: back, left arm Alcohol Use: None Drug Use: None Adult General Chief Complaint Chief Complaint: LOWER EXT PAIN HPI HPI Patient is a 53 year old female who presents with cellulitis to her left lower leg after she cut it on a nail several days ago. She was seen at this facility on October 18, 2018 and started on Keflex. She states that her leg is not improving. She came to the emergency department with a letter that was written by her but states that she has been taking the medication. She is unsure of her tetanus status. Review of Systems Review of Systems Constitutional: Denies fever or chills [] Respiratory: Denies cough or shortness of breath [] Cardiovascular: No additional information not addressed in HPI [] GI: Denies abdominal pain, nausea, vomiting, bloody stools or diarrhea [] : Denies dysuria or hematuria [] Musculoskeletal: Denies back pain or joint pain [] Integument: See history of present illness Neurologic: Denies headache, focal weakness or sensory changes [] Endocrine: Denies polyuria or polydipsia [] All other systems were reviewed and found to be within normal limits, except as documented in this note. Allergies Allergies Allergies Coded Allergies Type Severity Reaction Last Updated Verified ibuprofen Allergy Intermediate rash, TOLERATES KETOROLAC 04/08/18 Yes naproxen Allergy Intermediate rash, TOLERATES KETOROLAC 04/08/18 Yes Physical Exam Physical Exam Constitutional: Well developed, well nourished, no acute distress, non-toxic appearance. [] Cardiovascular:Heart rate regular rhythm, no murmur [] Lungs & Thorax: Bilateral breath sounds clear to auscultation [] Abdomen: Bowel sounds normal, soft, no tenderness, no masses, no pulsatile masses. [] Skin: Erythema with a healing scratch noted to her left lower leg, 2+ edema noted to the extremity Back: No tenderness, no CVA tenderness. [] Extremities: No tenderness, no cyanosis, no clubbing, ROM intact, no edema. [] Neurologic: Alert and oriented X 3, normal motor function, normal sensory function, no focal deficits noted. [] Psychologic: Affect normal, judgement normal, mood normal. [] Current Patient Data Vital Signs Vital Signs Date Time Temp Pulse Resp B/P (MAP) Pulse Ox O2 Delivery O2 Flow Rate FiO2 10/21/18 18:52 97.8 107 18 134/81 (98) 99 Room Air 97.8 EKG EKG [] Radiology/Procedures Radiology/Procedures [] Course & Med Decision Making Course & Med Decision Making Pertinent Labs and Imaging studies reviewed. (See chart for details) []The patient was given a booster to the emergency department. She has also been given a gram of Rocephin IM. I will add doxycycline into her antibiotics. Dragon Disclaimer Dragon Disclaimer This electronic medical record was generated, in whole or in part, using a voice recognition dictation system. Departure Departure Impression: Primary Impression: Cellulitis of left lower extremity Additional Impression: Need for tetanus booster Disposition: 01 HOME, SELF-CARE Condition: STABLE Referrals: MARITZA ALCARAZ MD (PCP) Patient Instructions: Cellulitis Additional Instructions: Take the antibiotic as directed. Follow-up with her primary care provider in 3 days for recheck. You may take Tylenol. Scripts Doxycycline Hyclate (DOXYCYCLINE HYCLATE) 100 Mg Capsule 1 CAP PO BID for infection, #20 CAP Prov: SAGAR TABOR APRN 10/21/18 Problem Qualifiers SAGAR TABOR APRN Oct 21, 2018 19:32
== END ==
LOC: ER 18:40
DX: L03.116 Cellulitis of left lower limb (principal); G89.29 Other chronic pain; Z88.5 Allergy status to narcotic agent; Z88.8 Allergy status to other drugs, medicaments and biological substances
CPT/HCPCS: 90471; 90715; 99283; J0696

== ENCOUNTER 2018-11-04 19:07 | Emergency (ER) | payer OTHER ==
[~2018-11-04] VITALS: Ht 162.6 cm; Wt 90.7 kg
[~2018-11-04 19:07] MED LIST changes: -DIPHTH,PERTUSS(ACELL),TET TOX 0.5 ML DISP.SYRIN. VAX IM ONE; -cefTRIAXone IM 1 GM VIAL IM ONE
[2018-11-04 19:11] VITALS: BP 177/83
--- NOTE | 2018-11-04 19:13 | PHYS DOC ---
Past Medical History Past Medical History: Other Additional Past Medical Histor: chronic pain Past Surgical History: No Surgical History Additional Past Surgical Histo: back, left arm Alcohol Use: None Drug Use: None Adult General Chief Complaint Chief Complaint: LOWER BACK PAIN OR INJURY [facility] HPI Patient is a 53 year old female who presents with chronic low back pain. Gabapentin not helping. Pain 07/20. Review of Systems Review of Systems Constitutional: Denies fever or chills [] Eyes: Denies change in visual acuity, redness, or eye pain [] HENT: Denies nasal congestion or sore throat [] Respiratory: Denies cough or shortness of breath [] Cardiovascular: No additional information not addressed in HPI [] GI: Denies abdominal pain, nausea, vomiting, bloody stools or diarrhea [] : Denies dysuria or hematuria [] Musculoskeletal: Denies back pain or joint pain [] Integument: Denies rash or skin lesions [] Neurologic: Denies headache, focal weakness or sensory changes [] Endocrine: Denies polyuria or polydipsia [] All other systems were reviewed and found to be within normal limits, except as documented in this note. Allergies Allergies Allergies Coded Allergies Type Severity Reaction Last Updated Verified ibuprofen Allergy Intermediate rash, TOLERATES KETOROLAC 04/08/18 Yes naproxen Allergy Intermediate rash, TOLERATES KETOROLAC 04/08/18 Yes Physical Exam Physical Exam Constitutional: Well developed, well nourished, no acute distress, non-toxic appearance. [] HENT: Normocephalic, atraumatic, bilateral external ears normal, oropharynx moist, no oral exudates, nose normal. [] Eyes: PERRLA, EOMI, conjunctiva normal, no discharge. [] Neck: Normal range of motion, no tenderness, supple, no stridor. [] Cardiovascular:Heart rate regular rhythm, no murmur [] Lungs & Thorax: Bilateral breath sounds clear to auscultation [] Abdomen: Bowel sounds normal, soft, no tenderness, no masses, no pulsatile masses. [] Skin: Warm, dry, no erythema, no rash. [] Back: No tenderness, no CVA tenderness. [] Extremities: No tenderness, no cyanosis, no clubbing, ROM intact, no edema. [] Neurologic: Alert and oriented X 3, normal motor function, normal sensory function, no focal deficits noted. [] Psychologic: Affect normal, judgement normal, mood normal. [] EKG EKG [] Radiology/Procedures Radiology/Procedures [] Course & Med Decision Making Course & Med Decision Making Patient is a 53 year old female who presents with chronic low back pain. Gabapentin not helping. Pain 07/20. Alert and oriented. Ambulatory with steady gait. Stating pain is worse today. She took gabapentin that is not helping. Alert and oriented. Denies dysuria, chest pain, soa, abdominal pain, nausea, vomiting, diarrhea. Patient is offered a muscle relaxer and Tylenol. Patient is told she needs to follow up with her primary care for Narcotic pain medications. Patient is asking for Tramadol. Patient was just here October 21 for leg pain. Patient is agreeable to a muscle relaxer. Dragon Disclaimer Dragon Disclaimer This electronic medical record was generated, in whole or in part, using a voice recognition dictation system. Departure Departure Impression: Primary Impression: Chronic back pain Disposition: HOME, SELF-CARE Condition: STABLE Referrals: MARITZA ALCARAZ MD (PCP) Patient Instructions: Chronic Back Pain Additional Instructions: CALL YOUR DOCTOR FOR PAIN MEDICATIONS. Problem Qualifiers Primary Impression: Chronic back pain Back pain location: low back pain Back pain laterality: unspecified Sciatica presence: without sciatica Qualified Codes: M54.5 - Low back pain; G89.29 - Other chronic pain RICHARD MCELROY AGRICULTURAL SCIENCES PROFESSOR Nov 04, 2018 19:13
[2018-11-04] MEDS ORDERED: CYCLOBENZAPRINE 10 MG TABLET. PO ONE (19:30)
== END 2018-11-04 19:40 | disposition home or self-care (01) ==
LOC: ER 19:07
DX: G89.29 Other chronic pain (principal); M54.5 Low back pain; Z88.5 Allergy status to narcotic agent; Z88.6 Allergy status to analgesic agent
CPT/HCPCS: 99282

== ENCOUNTER 2018-11-22 19:48 | Emergency (ER) | payer OTHER ==
[~2018-11-22] VITALS: Ht 165.1 cm; Wt 124.7 kg
[~2018-11-22 19:48] MED LIST changes: -GABA600T2 PO; +GABA600T7 PO
[2018-11-22 20:29] LABS: BILIRUBIN,URINE SMALL (NEG); CLARITY,URINE CLEAR; COLOR,URINE YELLOW; NITRITE,URINE NEGATIVE (NEG); PROTEIN,URINE NEGATIVE (NEG-TRACE); UROBILINOGEN,URINE 0.2 mg/dL (0.2 mg/dL)
[2018-11-22] MEDS ORDERED: FUROSEMIDE 40 MG TABLET. PO ONE (20:30)
[2018-11-22 20:35] LABS: SQUAMOUS EPITHELIAL CELL,UR MOD /LPF
[2018-11-22 20:36] LABS: BACTERIA,URINE 0 /HPF (0-FEW); RBC,URINE 0 /HPF (0-2)
[2018-11-22 20:38] LABS: AMPHETAMINE/METHAMPHETAMINE NEG (NEG); BARBITURATES NEG (NEG); BENZODIAZEPINES NEG (NEG); CANNABINOIDS NEG (NEG); COCAINE NEG (NEG); METHADONE NEG (NEG); OPIATES NEG (NEG); PHENCYCLIDINE NEG (NEG)
[2018-11-22] MEDS ORDERED: ACETAMINOPHEN 500 MG TABLET PO ONE (21:00)
[2018-11-22 21:09] LABS: BASO # 0.1 x10^3/uL (0.0-0.2); BASO % 1 % (0-3); EOS # 0.5 x10^3/uL (0.0-0.7); EOS % 7 % (0-3); HEMATOCRIT 33.5 % (36.0-47.0); HEMOGLOBIN 10.7 g/dL (12.0-15.5); LYMPH # 2.2 x10^3/uL (1.0-4.8); LYMPH % 31 % (24-48); MEAN CORPUSCULAR HEMOGLOBIN 28 pg (25-35); MEAN CORPUSCULAR HGB CONC 32 g/dL (31-37); MEAN CORPUSCULAR VOLUME 88 fL (79-100); MONO # 0.6 x10^3/uL (0.0-1.1); MONO % 9 % (0-9); NEUT # 3.7 x10^3uL (1.8-7.7); NEUT % 53 % (31-73); PLATELET COUNT 360 x10^3/uL (140-400); RED BLOOD COUNT 3.83 x10^6/uL (3.50-5.40); RED CELL DISTRIBUTION WIDTH 17.6 % (11.5-14.5)
[2018-11-22 21:17] LABS: CALCIUM 9.2 mg/dL (8.5-10.1); POTASSIUM 4.2 mmol/L (3.5-5.1)
[2018-11-22 21:23] LABS: ALBUMIN 3.5 g/dL (3.4-5.0); ALBUMIN/GLOBULIN RATIO 0.9 (1.0-1.7); TOTAL BILIRUBIN 0.1 mg/dL (0.2-1.0); TOTAL PROTEIN 7.6 g/dL (6.4-8.2)
[2018-11-22 21:30] VITALS: BP 112/65
--- NOTE | 2018-11-22 21:40 | RAD ---
PA and lateral chest radiographs 11/22/2018 CLINICAL HISTORY: Cough and shortness of breath. PA and lateral digital radiographs of the chest were obtained. Comparison study is dated 08/31/2018. The cardiac silhouette is normal in size. The thoracic aorta is mildly tortuous. Atherosclerotic calcification of the thoracic aorta is seen. No acute pulmonary infiltrate is noted. No pneumothorax or pleural effusion is seen. Degenerative changes are seen involving the thoracic spine. IMPRESSION: No acute abnormality is seen. Electronically signed by: Lopez Sims MD (11/22/2018 9:37 PM) [facility]
--- NOTE | 2018-11-22 21:53 | PHYS DOC ---
Past Medical History Past Medical History: Other Additional Past Medical Histor: chronic pain Past Surgical History: No Surgical History Additional Past Surgical Histo: back, left arm Alcohol Use: None Drug Use: None Adult General Chief Complaint Chief Complaint: LOWER EXTREMITY SWELLING HPI HPI Patient is a 53 year old female who presents with bilateral lower extremity swelling times two days. The patient is very well known to this facility. This is a chronic condition for the patient. She denies chest and her shortness of air. The patient states that she has an appointment with her primary care provider the first week of December. Review of Systems Review of Systems Constitutional: Denies fever or chills [] Eyes: Denies change in visual acuity, redness, or eye pain [] HENT: Denies nasal congestion or sore throat [] Respiratory: Denies cough or shortness of breath [] Cardiovascular: No additional information not addressed in HPI [] GI: Denies abdominal pain, nausea, vomiting, bloody stools or diarrhea [] : Denies dysuria or hematuria [] Musculoskeletal: See history of present illness Integument: Denies rash or skin lesions [] Neurologic: Denies headache, focal weakness or sensory changes [] Endocrine: Denies polyuria or polydipsia [] All other systems were reviewed and found to be within normal limits, except as documented in this note. Current Medications Current Medications Current Medications Medications (Trade) Dose Ordered Sig/Jayy Start Time Stop Time Status Last Admin Dose Admin Acetaminophen (Tylenol) 1,000 mg 1X ONCE 11/22/18 21:00 11/22/18 21:01 DC Furosemide (Lasix) 40 mg 1X ONCE 11/22/18 20:30 11/22/18 20:31 DC 11/22/18 21:07 40 MG Allergies Allergies Allergies Coded Allergies Type Severity Reaction Last Updated Verified ibuprofen Allergy Intermediate rash, TOLERATES KETOROLAC 04/08/18 Yes naproxen Allergy Intermediate rash, TOLERATES KETOROLAC 04/08/18 Yes Physical Exam Physical Exam Constitutional: Well developed, well nourished, no acute distress, non-toxic appearance. [] HENT: Normocephalic, atraumatic, bilateral external ears normal, oropharynx moist, no oral exudates, nose normal. [] Eyes: PERRLA, EOMI, conjunctiva normal, no discharge. [] Neck: Normal range of motion, no tenderness, supple, no stridor. [] Cardiovascular:Heart rate regular rhythm, no murmur [] Lungs & Thorax: Bilateral breath sounds clear to auscultation [] Abdomen: Bowel sounds normal, soft, no tenderness, no masses, no pulsatile masses. [] Skin: Warm, dry, no erythema, no rash. [] Back: No tenderness, no CVA tenderness. [] Extremities: No tenderness, no cyanosis, no clubbing, ROM intact, 2+ pitting edema. [] Neurologic: Alert and oriented X 3, normal motor function, normal sensory function, no focal deficits noted. [] Psychologic: Affect normal, judgement normal, mood normal. [] Current Patient Data Vital Signs Vital Signs Date Time Temp Pulse Resp B/P (MAP) Pulse Ox O2 Delivery O2 Flow Rate FiO2 11/22/18 21:30 75 20 112/65 (81) 99 Room Air 11/22/18 20:10 98.1 98.1 Lab Values Laboratory Tests Test 11/22/18 20:10 11/22/18 21:00 Urine Collection Type Unknown Urine Color Yellow Urine Clarity Clear Urine pH 6.0 Urine Specific [place] >=1.030 Urine Protein Negative mg/dL (NEG-TRACE) Urine Glucose (UA) Negative mg/dL (NEG) Urine Ketones (Stick) Negative mg/dL (NEG) Urine Blood Negative (NEG) Urine Nitrite Negative (NEG) Urine Bilirubin Small (NEG) Urine Urobilinogen Dipstick 0.2 mg/dL (0.2 mg/dL) Urine Leukocyte Esterase Negative (NEG) Urine RBC 0 /HPF (0-2) Urine WBC 1-4 /HPF (0-4) Urine Squamous Epithelial Cells Mod /LPF Urine Bacteria 0 /HPF (0-FEW) Urine Mucus Marked /LPF Urine Opiates Screen Neg (NEG) Urine Methadone Screen Neg (NEG) Urine Barbiturates Neg (NEG) Urine Phencyclidine Screen Neg (NEG) Urine Amphetamine/Methamphetamine Neg (NEG) Urine Benzodiazepines Screen Neg (NEG) Urine Cocaine Screen Neg (NEG) Urine Cannabinoids Screen Neg (NEG) Urine Ethyl Alcohol Neg (NEG) White Blood Count 7.0 x10^3/uL (4.0-11.0) Red Blood Count 3.83 x10^6/uL (3.50-5.40) Hemoglobin 10.7 g/dL (12.0-15.5) L Hematocrit 33.5 % (36.0-47.0) L Mean Corpuscular Volume 88 fL (79-100) Mean Corpuscular Hemoglobin 28 pg (25-35) Mean Corpuscular Hemoglobin Concent 32 g/dL (31-37) Red Cell Distribution Width 17.6 % (11.5-14.5) H Platelet Count 360 x10^3/uL (140-400) Neutrophils (%) (Auto) 53 % (31-73) Lymphocytes (%) (Auto) 31 % (24-48) Monocytes (%) (Auto) 9 % (0-9) Eosinophils (%) (Auto) 7 % (0-3) H Basophils (%) (Auto) 1 % (0-3) Neutrophils # (Auto) 3.7 x10^3uL (1.8-7.7) Lymphocytes # (Auto) 2.2 x10^3/uL (1.0-4.8) Monocytes # (Auto) 0.6 x10^3/uL (0.0-1.1) Eosinophils # (Auto) 0.5 x10^3/uL (0.0-0.7) Basophils # (Auto) 0.1 x10^3/uL (0.0-0.2) Sodium Level 138 mmol/L (136-145) Potassium Level 4.2 mmol/L (3.5-5.1) Chloride Level 101 mmol/L (98-107) Carbon Dioxide Level 30 mmol/L (21-32) Anion Gap 7 (6-14) Blood Urea Nitrogen 22 mg/dL (7-20) H Creatinine 1.0 mg/dL (0.6-1.0) Estimated GFR (Cockcroft-Gault) 58.0 BUN/Creatinine Ratio 22 (6-20) H Glucose Level 97 mg/dL (70-99) Calcium Level 9.2 mg/dL (8.5-10.1) Total Bilirubin 0.1 mg/dL (0.2-1.0) L Aspartate Amino Transferase (AST) 25 U/L (15-37) Alanine Aminotransferase (ALT) 22 U/L (14-59) Alkaline Phosphatase 98 U/L (46-116) VU-Hpa-V-Type Natriuretic Peptide 96 pg/mL (0-124) Total Protein 7.6 g/dL (6.4-8.2) Albumin 3.5 g/dL (3.4-5.0) Albumin/Globulin Ratio 0.9 (1.0-1.7) L Laboratory Tests 11/22/18 21:00 Laboratory Tests 11/22/18 21:00 EKG EKG [] Radiology/Procedures Radiology/Procedures [] Course & Med Decision Making Course & Med Decision Making Pertinent Labs and Imaging studies reviewed. (See chart for details) []There was no acute cause found for the patient's edema. She was given a dose of Tylenol in the emergency department for pain. Dragon Disclaimer Dragon Disclaimer This electronic medical record was generated, in whole or in part, using a voice recognition dictation system. Departure Departure Impression: Primary Impression: Chronic edema Disposition: 01 HOME, SELF-CARE Condition: STABLE Referrals: MARITZA ALCARAZ MD (PCP) Patient Instructions: Diet - 1.5 Gram Low Sodium, Peripheral Edema Additional Instructions: Follow up with your primary care physician within the week. Take your at-home medications as directed. Follow a low-sodium diet. SAGAR TABOR APRN Nov 22, 2018 21:53
--- NOTE | 2018-11-23 14:18 | EKG ---
[facility] [address] [place] [address] Test Date: 2018-11-22 Test Time: 20:22:15 Pat Name: JACKY GLASER Department: Room: Gender: F Government Relations Director: : 1965 Requested By: SAGAR TABOR Order Number: [id number] Reading MD: Measurements Intervals [place] Rate: P: [place]: QRS: QRSD: T: QT: QTc: Interpretive Statements
== END 2018-11-22 22:40 | disposition home or self-care (01) ==
LOC: ER 19:48
DX: R60.0 Localized edema (principal); G89.29 Other chronic pain; R05 Cough; Z88.5 Allergy status to narcotic agent; Z88.8 Allergy status to other drugs, medicaments and biological substances
CPT/HCPCS: 36415; 71046; 80053; 80307; 81001; 83880; 85025; 93005; 99284

== ENCOUNTER 2018-11-26 14:06 | Emergency (ER) | payer OTHER ==
[~2018-11-26] VITALS: Ht 165.1 cm; Wt 124.7 kg
[2018-11-26 14:20] VITALS: BP 129/89
--- NOTE | 2018-11-26 15:15 | PHYS DOC ---
Past Medical History Past Medical History: Other Additional Past Medical Histor: chronic pain (RACHNA TABORKYAW Ceja APRN) Past Surgical History: No Surgical History Additional Past Surgical Histo: back, left arm (RACHNA TABORKYAW Ceja APRN) Alcohol Use: None Drug Use: None (SAGAR TABOR Marcial PALMER) Adult General Chief Complaint Chief Complaint: LOWER EXTREMITY SWELLING HPI HPI Patient is a 53 year old female who presents with bilateral lower extremity swelling. The patient was just seen at this facility a few days ago for the exact same complaint and had an extensive workup. There was no known cause found for her chronic edema. She was referred back to her primary care. She states that she has appointment with him in December but didn't want to wait. She denies any other medical issues. (RACHNA TABORKYAW Ceja APRN) Review of Systems Review of Systems Constitutional: Denies fever or chills [] Eyes: Denies change in visual acuity, redness, or eye pain [] HENT: Denies nasal congestion or sore throat [] Respiratory: Denies cough or shortness of breath [] Cardiovascular: No additional information not addressed in HPI [] GI: Denies abdominal pain, nausea, vomiting, bloody stools or diarrhea [] : Denies dysuria or hematuria [] Musculoskeletal: See history of present illness Integument: Denies rash or skin lesions [] Neurologic: Denies headache, focal weakness or sensory changes [] Endocrine: Denies polyuria or polydipsia [] All other systems were reviewed and found to be within normal limits, except as documented in this note. (RACHNA TABORKYAW Ceja APRN) Allergies Allergies Allergies Coded Allergies Type Severity Reaction Last Updated Verified ibuprofen Allergy Intermediate rash, TOLERATES KETOROLAC 04/08/18 Yes naproxen Allergy Intermediate rash, TOLERATES KETOROLAC 04/08/18 Yes (MARIA D ABERNATHY DO) Physical Exam Physical Exam Constitutional: Well developed, well nourished, no acute distress, non-toxic appearance. [] HENT: Normocephalic, atraumatic, bilateral external ears normal, oropharynx moist, no oral exudates, nose normal. [] Eyes: PERRLA, EOMI, conjunctiva normal, no discharge. [] Neck: Normal range of motion, no tenderness, supple, no stridor. [] Cardiovascular:Heart rate regular rhythm, no murmur [] Lungs & Thorax: Bilateral breath sounds clear to auscultation [] Abdomen: Bowel sounds normal, soft, no tenderness, no masses, no pulsatile masses. [] Skin: Warm, dry, no erythema, no rash. [] Back: No tenderness, no CVA tenderness. [] Extremities: No tenderness, no cyanosis, no clubbing, ROM intact, 1+ pitting edema to bilateral extremities, pulses and sensation are intact. [] Neurologic: Alert and oriented X 3, normal motor function, normal sensory function, no focal deficits noted. [] Psychologic: Affect normal, judgement normal, mood normal. [] (SAGAR TABOR APRN) Current Patient Data Vital Signs Vital Signs Date Time Temp Pulse Resp B/P (MAP) Pulse Ox O2 Delivery O2 Flow Rate FiO2 11/26/18 14:20 98.8 111 20 129/89 (102) 96 Room Air 98.8 (MARIA D ABERNATHY DO) EKG EKG [] (SAGAR TABOR APRN) Radiology/Procedures Radiology/Procedures [] (SAGAR TABOR APRN) Course & Med Decision Making Course & Med Decision Making Pertinent Labs and Imaging studies reviewed. (See chart for details) []The patient was counseled to eat a very low sodium diet. She is to refrain from eating any fast food. She is to eat primarily fresh fruits and vegetables. She is to keep her follow-up appointment with Dr. Alcaraz, her primary care provider. (SAGAR TABOR APRN) Dragon Disclaimer Dragon Disclaimer This electronic medical record was generated, in whole or in part, using a voice recognition dictation system. (SAGAR TABOR APRN) Departure Departure Impression: Primary Impression: Chronic edema Disposition: 01 HOME, SELF-CARE Condition: STABLE Referrals: MARITZA ALCARAZ MD (PCP) Patient Instructions: Peripheral Edema Additional Instructions: Follow-up with your primary care provider for your chronic edema. Follow a low- sodium diet. You may take Tylenol for pain. Attending Signature Attending Signature I have reviewed the PA/CYLINDER DIE MACHINE OPERATOR's note and plan of care. I was available for consultation as needed during the patient's visit in the emergency department. I agree with the clinical impression, plan, and disposition. (MARIA D ABERNATHY DO) SAGAR TABOR APRN Nov 26, 2018 15:15 MARIA D ABERNATHY DO Nov 28, 2018 18:08
== END 2018-11-26 15:22 | disposition home or self-care (01) ==
LOC: ER 14:06
DX: R60.0 Localized edema (principal); G89.29 Other chronic pain; Z88.5 Allergy status to narcotic agent; Z88.8 Allergy status to other drugs, medicaments and biological substances
CPT/HCPCS: 99281

== ENCOUNTER 2018-12-11 15:04 | Inpatient (IN) | payer OTHER ==
[~2018-12-11] VITALS: Ht 165.1 cm; Wt 108.5 kg
[~2018-12-11 15:04] MED LIST changes: +OMEP20CA10 PO; -OMEP20CA9 PO
[2018-12-11] MEDS ORDERED: ASPIRIN 325 MG TABLET PO ONE (15:30)
[2018-12-11] MEDS ORDERED: CYCLOBENZAPRINE 10 MG TABLET. PO ONE (15:30)
--- NOTE | 2018-12-11 15:51 | PHYS DOC ---
Past Medical History Past Medical History: Other Additional Past Medical Histor: chronic pain Past Surgical History: No Surgical History Additional Past Surgical Histo: back, left arm Alcohol Use: None Drug Use: None Adult General Chief Complaint Chief Complaint: CHEST PAIN HPI HPI Patient is a 53 year old female who presents to the ED today complaining of a sharp 7 out of 10 substernal chest pain nonradiating in nature that began 3 days ago. Patient denies anything specific and exacerbating or relieving pain. Patient is also complaining of neck pain, mid back pain and low back pain rated at 7 out of 10 described as sharp status post falling 4 days ago. Patient states the pain radiates to bilateral lower extremities though this is not unusual for this patient. Denies any numbness or tingling to bilateral lower extremities. Review of Systems Review of Systems Constitutional: Denies fever or chills [] Eyes: Denies change in visual acuity, redness, or eye pain [] HENT: Denies nasal congestion or sore throat [] Respiratory: Denies cough or shortness of breath [] Cardiovascular: Reports chest pain GI: Denies abdominal pain, nausea, vomiting, bloody stools or diarrhea [] : Denies dysuria or hematuria [] Musculoskeletal: Reports low back pain, neck pain, mid back pain Integument: Denies rash or skin lesions [] Neurologic: Denies headache, focal weakness or sensory changes [] All other systems were reviewed and found to be within normal limits, except as documented in this note. Current Medications Current Medications Current Medications Medications (Trade) Dose Ordered Sig/[facility] Start Time Stop Time Status Last Admin Dose Admin Acetaminophen (Tylenol) 1,000 mg 1X ONCE 12/11/18 18:00 12/11/18 18:01 DC 12/11/18 18:18 1,000 MG Aspirin (Anthony Aspirin) 325 mg 1X ONCE 12/11/18 15:30 12/11/18 15:34 DC 12/11/18 18:17 325 MG Cyclobenzaprine HCl (Flexeril) 10 mg 1X ONCE 12/11/18 15:30 12/11/18 15:34 DC 12/11/18 18:17 10 MG Allergies Allergies Allergies Coded Allergies Type Severity Reaction Last Updated Verified ibuprofen Allergy Intermediate rash, TOLERATES KETOROLAC 04/08/18 Yes naproxen Allergy Intermediate rash, TOLERATES KETOROLAC 04/08/18 Yes Physical Exam Physical Exam Constitutional: Well developed, well nourished, no acute distress, non-toxic appearance. [] HENT: Normocephalic, atraumatic, bilateral external ears normal, oropharynx moist, no oral exudates, nose normal. [] Eyes: PERRLA, EOMI, conjunctiva normal, no discharge. [] Neck: Normal range of motion, diffuse paraspinal muscle tenderness to the cervical spine, no midline cervical spine, supple, no stridor. [] Cardiovascular:Heart rate regular rhythm, no murmur [] Lungs & Thorax: Bilateral breath sounds clear to auscultation [] Abdomen: Bowel sounds normal, soft, no tenderness, no masses, no pulsatile masses. [] Skin: Warm, dry, no erythema, no rash. [] Back: Old healed surgical incision noted midline lumbar spine. Diffuse paraspinal muscle tenderness to the thoracic and lumbar spine, no midline lumbar spine or thoracic spine tenderness, no CVA tenderness. [] Extremities: No tenderness, no cyanosis, no clubbing, ROM intact, no edema. [] Neurologic: Alert and oriented X 3, normal motor function, normal sensory function, no focal deficits noted. [] Psychologic: Affect normal, judgement normal, mood normal. [] Current Patient Data Vital Signs Vital Signs Date Time Temp Pulse Resp B/P (MAP) Pulse Ox O2 Delivery O2 Flow Rate FiO2 12/11/18 15:45 98.5 84 18 134/75 (94) 98 Room Air 98.5 Lab Values Laboratory Tests Test 12/11/18 15:43 12/11/18 16:35 Urine Collection Type Unknown Urine Color Yellow Urine Clarity Clear Urine pH 6.5 Urine Specific [place] 1.020 Urine Protein Negative mg/dL (NEG-TRACE) Urine Glucose (UA) Negative mg/dL (NEG) Urine Ketones (Stick) Negative mg/dL (NEG) Urine Blood Negative (NEG) Urine Nitrite Negative (NEG) Urine Bilirubin Negative (NEG) Urine Urobilinogen Dipstick 0.2 mg/dL (0.2 mg/dL) Urine Leukocyte Esterase Negative (NEG) Urine RBC 0 /HPF (0-2) Urine WBC 0 /HPF (0-4) Urine Squamous Epithelial Cells Few /LPF Urine Bacteria 0 /HPF (0-FEW) Urine Mucus Slight /LPF Urine Opiates Screen Neg (NEG) Urine Methadone Screen Neg (NEG) Urine Barbiturates Neg (NEG) Urine Phencyclidine Screen Neg (NEG) Urine Amphetamine/Methamphetamine Neg (NEG) Urine Benzodiazepines Screen Neg (NEG) Urine Cocaine Screen Neg (NEG) Urine Cannabinoids Screen Neg (NEG) Urine Ethyl Alcohol Neg (NEG) White Blood Count 8.5 x10^3/uL (4.0-11.0) Red Blood Count 4.32 x10^6/uL (3.50-5.40) Hemoglobin 11.9 g/dL (12.0-15.5) L Hematocrit 37.0 % (36.0-47.0) Mean Corpuscular Volume 86 fL (79-100) Mean Corpuscular Hemoglobin 28 pg (25-35) Mean Corpuscular Hemoglobin Concent 32 g/dL (31-37) Red Cell Distribution Width 17.7 % (11.5-14.5) H Platelet Count 404 x10^3/uL (140-400) H Neutrophils (%) (Auto) 55 % (31-73) Lymphocytes (%) (Auto) 34 % (24-48) Monocytes (%) (Auto) 7 % (0-9) Eosinophils (%) (Auto) 4 % (0-3) H Basophils (%) (Auto) 1 % (0-3) Neutrophils # (Auto) 4.7 x10^3uL (1.8-7.7) Lymphocytes # (Auto) 2.9 x10^3/uL (1.0-4.8) Monocytes # (Auto) 0.6 x10^3/uL (0.0-1.1) Eosinophils # (Auto) 0.3 x10^3/uL (0.0-0.7) Basophils # (Auto) 0.0 x10^3/uL (0.0-0.2) Sodium Level 142 mmol/L (136-145) Potassium Level 4.3 mmol/L (3.5-5.1) Chloride Level 105 mmol/L (98-107) Carbon Dioxide Level 28 mmol/L (21-32) Anion Gap 9 (6-14) Blood Urea Nitrogen 9 mg/dL (7-20) Creatinine 0.7 mg/dL (0.6-1.0) Estimated GFR (Cockcroft-Gault) 87.5 BUN/Creatinine Ratio 13 (6-20) Glucose Level 92 mg/dL (70-99) Calcium Level 9.0 mg/dL (8.5-10.1) Magnesium Level 2.0 mg/dL (1.8-2.4) Total Bilirubin 0.3 mg/dL (0.2-1.0) Aspartate Amino Transferase (AST) 9 U/L (15-37) L Alanine Aminotransferase (ALT) 12 U/L (14-59) L Alkaline Phosphatase 92 U/L (46-116) Creatine Kinase 57 U/L (26-192) Creatine Kinase MB (Mass) 0.6 ng/mL (0.0-3.6) Creatine Kinase MB Relative Index % (0-4) Troponin I Quantitative < 0.017 ng/mL (0.000-0.055) IU-Wuf-R-Type Natriuretic Peptide 62 pg/mL (0-124) Total Protein 7.3 g/dL (6.4-8.2) Albumin 3.4 g/dL (3.4-5.0) Albumin/Globulin Ratio 0.9 (1.0-1.7) L Thyroid Stimulating Hormone (TSH) 0.841 uIU/mL (0.358-3.74) Laboratory Tests 12/11/18 16:35 Laboratory Tests 12/11/18 16:35 EKG EKG Interpreted by sinus rhythm HR 82 no STEMI[] Course & Med Decision Making Course & Med Decision Making Pertinent Labs and Imaging studies reviewed. (See chart for details) This is a 53-year-old female patient well known to this ED presenting today complaining of chest pain for 3 days as well as neck pain, mid back pain and low back pain status post falling 4 days ago. No acute findings on lumbar, thoracic, cervical spine x-rays. Cardiac workup is negative. 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 Spoke with Dr. Goode who accepted patient for admission Routine consult placed for cardiology Dragon Disclaimer Dragon Disclaimer This electronic medical record was generated, in whole or in part, using a voice recognition dictation system. Departure Departure Impression: Primary Impression: Chest pain Additional Impressions: Chronic low back pain Lumbar contusion Contusion of thoracic wall Acute cervical myofascial strain Disposition: ADMITTED INPATIENT Condition: STABLE Referrals: MARITZA ALCARAZ MD (PCP) Problem Qualifiers Primary Impression: Chest pain Chest pain type: unspecified Qualified Codes: R07.9 - Chest pain, unspecified Additional Impressions: Chronic low back pain Back pain laterality: bilateral Sciatica presence: with sciatica Sciatica laterality: bilateral sciatica Qualified Codes: M54.42 - Lumbago with sciatica, left side; M54.41 - Lumbago with sciatica, right side; G89.29 - Other chronic pain Lumbar contusion Encounter type: initial encounter Qualified Codes: S30.0XXA - Contusion of lower back and pelvis, initial encounter Contusion of thoracic wall Encounter type: initial encounter Contusion of thoracic wall detail: back wall of thorax Laterality: right Qualified Codes: S20.221A - Contusion of right back wall of thorax, initial encounter Acute cervical myofascial strain Encounter type: initial encounter Qualified Codes: S16.1XXA - Strain of muscle, fascia and tendon at neck level, initial encounter MEMO NELSON APRN Dec 11, 2018 15:51
[2018-12-11 15:53] LABS: BILIRUBIN,URINE NEGATIVE (NEG); CLARITY,URINE CLEAR; COLOR,URINE YELLOW; NITRITE,URINE NEGATIVE (NEG); PH,URINE 6.5; PROTEIN,URINE NEGATIVE (NEG-TRACE); UROBILINOGEN,URINE 0.2 mg/dL (0.2 mg/dL)
[2018-12-11 15:56] LABS: BARBITURATES NEG (NEG); BENZODIAZEPINES NEG (NEG); CANNABINOIDS NEG (NEG); COCAINE NEG (NEG); METHADONE NEG (NEG); OPIATES NEG (NEG); PHENCYCLIDINE NEG (NEG)
[2018-12-11 15:57] LABS: BACTERIA,URINE 0 /HPF (0-FEW); RBC,URINE 0 /HPF (0-2); SQUAMOUS EPITHELIAL CELL,UR FEW /LPF; WBC,URINE 0 /HPF (0-4)
[2018-12-11 16:00] LABS: AMPHETAMINE/METHAMPHETAMINE NEG (NEG)
[2018-12-11 16:57] LABS: BASO % 1 % (0-3); EOS # 0.3 x10^3/uL (0.0-0.7); EOS % 4 % (0-3); HEMOGLOBIN 11.9 g/dL (12.0-15.5); LYMPH # 2.9 x10^3/uL (1.0-4.8); LYMPH % 34 % (24-48); MEAN CORPUSCULAR HEMOGLOBIN 28 pg (25-35); MEAN CORPUSCULAR HGB CONC 32 g/dL (31-37); MEAN CORPUSCULAR VOLUME 86 fL (79-100); MONO # 0.6 x10^3/uL (0.0-1.1); MONO % 7 % (0-9); NEUT # 4.7 x10^3uL (1.8-7.7); NEUT % 55 % (31-73); PLATELET COUNT 404 x10^3/uL (140-400); RED BLOOD COUNT 4.32 x10^6/uL (3.50-5.40); RED CELL DISTRIBUTION WIDTH 17.7 % (11.5-14.5); WHITE BLOOD COUNT 8.5 x10^3/uL (4.0-11.0)
[2018-12-11 16:59] LABS: CREATININE 0.7 mg/dL (0.6-1.0); GFR 87.5; POTASSIUM 4.3 mmol/L (3.5-5.1)
[2018-12-11 17:05] LABS: ALBUMIN 3.4 g/dL (3.4-5.0); ALBUMIN/GLOBULIN RATIO 0.9 (1.0-1.7); TOTAL BILIRUBIN 0.3 mg/dL (0.2-1.0); TOTAL PROTEIN 7.3 g/dL (6.4-8.2)
[2018-12-11 17:13] LABS: CREATINE KINASE 57 U/L (26-192)
--- NOTE | 2018-12-11 17:25 | EKG ---
[facility] [address] [place] [address] Test Date: 2018-12-11 Test Time: 15:19:03 Pat Name: JACKY GLASER Department: Room: Gender: F Dial Painter: : 1965 Requested By: MEMO NELSON Order Number: [id number] Reading MD: Jose M Red MD Measurements Intervals [place] Rate: 82 P: 52 AR: 154 QRS: 53 QRSD: 84 T: 39 QT: 348 QTc: 409 Interpretive Statements SINUS RHYTHM Electronically Signed On 12-12-2018 10:58:50 DIALYSIS REGISTERED NURSE by Jose M Red MD
[2018-12-11] MEDS ORDERED: ACETAMINOPHEN 500 MG TABLET PO ONE (18:00)
[2018-12-11] MEDS ORDERED: ACETAMINOPHEN 325 MG TABLET. PO PRN (19:30)
[2018-12-11] MEDS ORDERED: ONDANSETRON PF 4 MG/2 ML VIAL. IV PRN (19:30)
[2018-12-11] MEDS ORDERED: NITROGLYCERIN SUBLINGUAL 0.4 MG BOTTLE OF 25. SL PRN (19:30)
[2018-12-11 20:00] VITALS: BP 117/84
[2018-12-11] MEDS: fentaNYL PF VIAL 100 MCG/2 ML VIAL IV PRN ×2 (20:08→21:52)
[2018-12-11] MEDS ORDERED: traMADol 50 MG TABLET PO PRN (20:45)
[2018-12-11] MEDS ORDERED: TRAM50TA PO (20:50)
[2018-12-11] MEDS ORDERED: ASPI-630 PO (20:51)
[2018-12-11] MEDS ORDERED: CYCL10TA2 PO (20:51)
[2018-12-11] MEDS ORDERED: GABA300C18 PO (20:55)
[2018-12-11] MEDS: DULoxetine HCL 30 MG CAPSULE.DR PO SCH ×2 (21:00→21:52)
[2018-12-11] MEDS ORDERED: SIMVASTATIN 10 MG TABLET PO SCH (21:00)
[2018-12-11] MEDS ORDERED: NON FORMULARY ITEM (Methylprednisolone (Medrol) 1 PKG) PO SCH (21:00)
[2018-12-11] MEDS: GABAPENTIN 300 MG CAPSULE. PO SCH (21:53)
[2018-12-11] MEDS: CYCLOBENZAPRINE 10 MG TABLET. PO SCH (21:53)
[2018-12-11] MEDS: clonazePAM 1 MG TABLET PO SCH (21:53)
[2018-12-11 23:10] VITALS: BP 122/68
[2018-12-12 01:28] LABS: CALCIUM 8.6 mg/dL (8.5-10.1); CREATININE 0.8 mg/dL (0.6-1.0); POTASSIUM 3.9 mmol/L (3.5-5.1)
[2018-12-12 01:34] LABS: CHOLESTEROL/HDL RATIO 2.7
--- NOTE | 2018-12-12 01:43 | RAD ---
Single view chest dated 12/11/2018. Comparison made to 2018. Clinical data indication: Pain after fall. FINDINGS: Single upright portable exam performed. Heart and mediastinal contours are stable. Lungs are clear. No consolidation or pleural effusion. No pneumothorax. IMPRESSION: No acute radiographic abnormality. Electronically signed by: Cruz Escoto MD (12/12/2018 1:40 AM) [facility]
--- NOTE | 2018-12-12 01:46 | RAD ---
3 views cervical spine, 3 views thoracic spine and 3 views lumbar spine dated 12/11/2018. Comparison made to 05/24/2018. CLINICAL INDICATION: Pain after fall. AP, lateral and odontoid views of the cervical spine show normal sagittal alignment through the C6 level. No prevertebral soft tissue swelling. Posterior elements are intact. No apparent fracture. Mild endplate hypertrophic changes throughout. C1-C2 articulation unremarkable. 3 views thoracic spine show normal sagittal alignment. Vertebral body heights are maintained. Mild endplate hypertrophic changes throughout with multilevel disc space narrowing. No paraspinous soft tissue abnormality. 3 views of lumbar spine show normal sagittal alignment. Vertebral body heights are maintained. Mild endplate hypertrophic changes throughout. Multilevel disc space narrowing with mild to moderate arthrosis lower lumbar apophyseal joints. IMPRESSION: 1. No acute radiographic abnormality. 2. Mild multilevel cervical, thoracic and lumbar spondylosis. Electronically signed by: Cruz Escoto MD (12/12/2018 1:43 AM) [facility]
[2018-12-12 02:39] LABS: BASO % 1 % (0-3); EOS # 0.3 x10^3/uL (0.0-0.7); EOS % 4 % (0-3); HEMATOCRIT 36.2 % (36.0-47.0); HEMOGLOBIN 11.6 g/dL (12.0-15.5); LYMPH # 2.9 x10^3/uL (1.0-4.8); LYMPH % 43 % (24-48); MEAN CORPUSCULAR HEMOGLOBIN 28 pg (25-35); MEAN CORPUSCULAR HGB CONC 32 g/dL (31-37); MEAN CORPUSCULAR VOLUME 86 fL (79-100); MONO # 0.6 x10^3/uL (0.0-1.1); MONO % 8 % (0-9); NEUT # 3.1 x10^3uL (1.8-7.7); NEUT % 45 % (31-73); PLATELET COUNT 359 x10^3/uL (140-400); RED BLOOD COUNT 4.22 x10^6/uL (3.50-5.40); RED CELL DISTRIBUTION WIDTH 17.8 % (11.5-14.5); WHITE BLOOD COUNT 6.9 x10^3/uL (4.0-11.0)
[2018-12-12 03:10] VITALS: BP 123/64
[2018-12-12 07:00] VITALS: BP 112/65
[2018-12-12] MEDS: GABAPENTIN 300 MG CAPSULE. PO SCH ×2 (08:28→14:51)
[2018-12-12] MEDS: clonazePAM 1 MG TABLET PO SCH (08:29)
[2018-12-12] MEDS: CYCLOBENZAPRINE 10 MG TABLET. PO SCH ×2 (08:29→14:00)
[2018-12-12] MEDS: DULoxetine HCL 30 MG CAPSULE.DR PO SCH (08:29)
[2018-12-12] MEDS ORDERED: ASPIRIN CHEWABLE 81 MG TABLET. PO SCH (09:00)
[2018-12-12] MEDS ORDERED: clonazePAM 1 MG TABLET PO SCH (09:00)
--- NOTE | 2018-12-12 09:59 | PDOC1 ---
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 Patient is also complaining of neck pain, mid back pain and low back pain rated at 7 out of 10 described as sharp status post falling 4 days ago. ECHO PENDING, TROPONIN I NEG X 2 CARDIOLOGY consult pending, she states her PCP IS AT [facility], and she had a stress test" last year there which was ok" Past Medical History Past Medical History Past Medical History Past Medical History Past Medical History: Other Additional Past Medical Histor: chronic pain Past Surgical History: No Surgical History Additional Past Surgical Histo: back, left arm Alcohol Use: None Drug Use: None family hx obesity, htn Cardiovascular: HTN, Hyperlipidemia Pulmonary: Asthma, COPD, Other GI: Gastritis Psych: Depression Musculoskeletal: low back pain Rheumatologic: Other Endocrine: Other Past Surgical History Past Surgical History: Other Family History Family History: High Cholestrol, Hypertension Social History Smoke: <1 pack per day ALCOHOL: social Drugs: None Current Problem List Problem List Problems Medical Problems: (1) Acute cervical myofascial strain Status: Acute (2) Chest pain Status: Acute (3) Chronic low back pain Status: Acute (4) Contusion of thoracic wall Status: Acute (5) Lumbar contusion Status: Acute Current Medications Current Medications Current Medications Aspirin (Anthony Aspirin) 325 mg 1X ONCE PO Last administered on 12/11/18 18:17 ; Start 12/11/18 at 15:30; Stop 12/11/18 at 15:34; Status DC Cyclobenzaprine HCl (Flexeril) 10 mg 1X ONCE PO Last administered on 12/11/18at 18:17; Start 12/11/18 at 15:30; Stop 12/11/18 at 15:34; Status DC Acetaminophen (Tylenol) 1,000 mg 1X ONCE PO Last administered on 12/11/18at 18: 18; Start 12/11/18 at 18:00; Stop 12/11/18 at 18:01; Status DC Ondansetron HCl (Zofran) 4 mg PRN Q8HRS PRN IV NAUSEA/VOMITING; Start 12/11/18 at 19:30; Stop 12/12/18 at 19:29 Fentanyl Citrate (Fentanyl 2ml Vial) 50 mcg PRN Q1HR PRN IV PAIN Last administered on 12/11/18 21:52; Start 12/11/18 at 19:30; Stop 12/12/18 at 19:29 Acetaminophen (Tylenol) 650 mg PRN Q4HRS PRN PO FEVER; Start 12/11/18 at 19:30; Stop 12/12/18 at 19:29 Nitroglycerin (Nitrostat) 0.4 mg PRN Q5MIN PRN SL CHEST PAIN; Start 12/11/18 at 19:30; Stop 12/12/18 at 19:29 Aspirin (Children'S Aspirin) 81 mg DAILY PO Last administered on 12/12/18 08:29 ; Start 12/12/18 at 09:00 Clonazepam (KlonoPIN) 1 mg DAILY PO ; Start 12/12/18 at 09:00; Stop 12/12/18 at 09 :00; Status DC Cyclobenzaprine HCl (Flexeril) 10 mg TID PO Last administered on 12/12/18 08:29 ; Start 12/11/18 at 21:00 Duloxetine HCl (Cymbalta) 30 mg BID PO Last administered on 12/12/18 08:29; Start 12/11/18 at 21:00 Simvastatin (Zocor) 10 mg QHS PO Last administered on 12/11/18 21:52; Start 12/11/18 at 21:00 Tramadol HCl (Ultram) 50 mg PRN Q8HRS PRN PO MODERATE PAIN Last administered on 12/12/18 07:02; Start 12/11/18 at 20:45 Gabapentin (Neurontin) 300 mg TID PO Last administered on 12/12/18 08:28; Start 12/11/18 at 21:00 Non-Formulary Medication (Methylprednisolone (Medrol)) 1 pkg UD PO ; Start at 21:00; Status UNV Clonazepam (KlonoPIN) 1 mg DAILY PO Last administered on 12/12/18 08:29; Start 12/11/18 at 21:30 Active Scripts Active Doxycycline Hyclate 100 Mg Capsule 1 Cap PO BID Cephalexin 500 Mg Capsule 1 Cap PO QID Proair Hfa (Albuterol Sulfate) 8.5 Gm Hfa.aer.ad 1 Puff INH PRN Q6HRS PRN Cyclobenzaprine Hcl 10 Mg Tablet 1 Tab PO TID Medrol (Methylprednisolone) 4 Mg Tab.ds.pk 1 Pkg PO UD Cyclobenzaprine Hcl 10 Mg Tablet 1 Tab PO TID Tessalon Perle (Benzonatate) 100 Mg Capsule 100 Mg PO TID PRN Ventolin Hfa Inhaler (Albuterol Sulfate) 18 Gm Hfa.aer.ad 2 Puff INH Q4HRS Tessalon Perle (Benzonatate) 100 Mg Capsule 1 Cap PO TID Cyclobenzaprine Hcl 10 Mg Tablet 1 Tab PO TID Tramadol Hcl 50 Mg Tablet 1 Tab PO PRN Q12HR PRN Reported Gabapentin (Gabapentin) 300 Mg Capsule 300 Mg PO TID Cyclobenzaprine Hcl 10 Mg Tablet 10 Mg PO TID Aspirin 81 Mg Tab.chew 1 Tab PO DAILY Tramadol Hcl 50 Mg Tablet 50 Mg PO Q8HRS PRN Clonazepam 1 Mg Tablet 1 Mg PO DAILY Symbicort 160-4.5 Mcg Inhaler (Budesonide/Formoterol Fumarate) 10.2 Gm Hfa.aer.ad 2 Puff IH BID Simvastatin 10 Mg Tablet 1 Tab PO QHS Omeprazole 20 Mg Capsule.dr 1 Cap PO BID Cyclobenzaprine Hcl 10 Mg Tablet 1 Tab PO PRN TID PRN Cymbalta (Duloxetine Hcl) 30 Mg Capsule.dr 30 Mg PO BID Proair Respiclick (Albuterol Sulfate) 90 Mcg Aer.pow.ba 1 Puff IH DAILY PRN Allergies Allergies: Coded Allergies: ibuprofen (Verified Allergy, Intermediate, rash, TOLERATES KETOROLAC, 04/08) naproxen (Verified Allergy, Intermediate, rash, TOLERATES KETOROLAC, ) ROS Review of System Review of Systems Review of Systems Constitutional: Denies fever or chills [] Eyes: Denies change in visual acuity, redness, or eye pain [] HENT: Denies nasal congestion or sore throat [] Respiratory: Denies cough or shortness of breath [] Cardiovascular: Reports chest pain GI: Denies abdominal pain, nausea, vomiting, bloody stools or diarrhea [] : Denies dysuria or hematuria [] Musculoskeletal: Reports low back pain, neck pain, mid back pain Integument: Denies rash or skin lesions [] Neurologic: Denies headache, focal weakness or sensory changes [] 14 PT systems were reviewed and found to be within normal limits, except as documented General: No: Chills, Night Sweats, Fatigue, Malaise, Appetite, Other ALLERGY AND IMMUNOLOGY: No: Hives, Insect Bite Sensitivity, Itchy/Watery Eyes, Nasal Congestion, Post Nasal Drip, Seasonal Allergies, Other Hematological and Lymphatic: No: Bleeding Problems, Blood Clots, Blood Transfusions, Brusing, Night Sweats, Pallor, Swollen Lymph Nodes, Other Respiratory: No: Cough, Hemoptysis, Orthopnea, Pleuritic Pain, Shortness of breath, SOB with excertion, Sputum Changes, Stridor, Tachypnea, Wheezing, Other Cardiovascular: yes Chest Pain Gastrointestinal: No Nausea, No Vomiting, No Abdominal Pain, No Diarrhea, No Constipation, No Melena, No Hematochezia, No Other Musculoskeletal: Yes Joint Stiffness, Yes Muscle Pain, Yes Pain In: (low back) Neurological: No Behavorial Changes, No Bowel/Bladder ControlChng, No Confusion , No Dizziness, No Gait Disturbance, No Headaches, No Impaired Coord/balance, No Memory Loss, No Numbness/Tingling, No Seizures, No Speech Problems, No Tremors, No Visual Changes, No Weakness, No Other Physical Exam Physical Exam Physical Exam Physical Exam Constitutional: Well developed, well nourished, no acute distress, non-toxic appearance. [] HENT: Normocephalic, atraumatic, bilateral external ears normal, oropharynx moist, no oral exudates, nose normal. [] Eyes: PERRLA, EOMI, conjunctiva normal, no discharge. [] Neck: Normal range of motion, diffuse paraspinal muscle tenderness to the cervical spine, no midline cervical spine, supple, no stridor. [] Cardiovascular:Heart rate regular rhythm, no murmur [] Lungs & Thorax: Bilateral breath sounds clear to auscultation [] Abdomen: Bowel sounds normal, soft, no tenderness, no masses, no pulsatile masses. [] Skin: Warm, dry, no erythema, no rash. [] Back: Old healed surgical incision noted midline lumbar spine. Diffuse paraspinal muscle tenderness to the thoracic and lumbar spine, no midline lumbar spine or thoracic spine tenderness, no CVA tenderness. [] Extremities: No tenderness, no cyanosis, no clubbing, ROM intact, no edema. [] Neurologic: Alert and oriented X 3, normal motor function, normal sensory function, no focal deficits noted. [] Psychologic: Affect normal, judgement normal, mood normal. [] General: Alert, Oriented X3, Cooperative HEENT: Atraumatic, EOMI, Mucous membr. moist/pink Lungs: Normal air movement Breasts: Not examined Abdomen: Soft Extremities: No cyanosis Neuro: Normal speech, Cranial nerves 3-12 NL Psych/Mental Status: Mental status NL Vitals Vitals Vital Signs Date Time Temp Pulse Resp B/P (MAP) Pulse Ox O2 Delivery O2 Flow Rate FiO2 12/12/18 08:02 18 Room Air 12/12/18 07:02 96 12/12/18 07:00 98.1 68 112/65 (81) 98.1 Labs Labs Laboratory Tests Test 12/11/18 15:43 12/11/18 16:35 12/12/18 00:40 Urine Collection Type Unknown Urine Color Yellow Urine Clarity Clear Urine pH 6.5 Urine Specific [place] 1.020 Urine Protein Negative mg/dL (NEG-TRACE) Urine Glucose (UA) Negative mg/dL (NEG) Urine Ketones (Stick) Negative mg/dL (NEG) Urine Blood Negative (NEG) Urine Nitrite Negative (NEG) Urine Bilirubin Negative (NEG) Urine Urobilinogen Dipstick 0.2 mg/dL (0.2 mg/dL) Urine Leukocyte Esterase Negative (NEG) Urine RBC 0 /HPF (0-2) Urine WBC 0 /HPF (0-4) Urine Squamous Epithelial Cells Few /LPF Urine Bacteria 0 /HPF (0-FEW) Urine Mucus Slight /LPF Urine Opiates Screen Neg (NEG) Urine Methadone Screen Neg (NEG) Urine Barbiturates Neg (NEG) Urine Phencyclidine Screen Neg (NEG) Urine Amphetamine/Methamphetamine Neg (NEG) Urine Benzodiazepines Screen Neg (NEG) Urine Cocaine Screen Neg (NEG) Urine Cannabinoids Screen Neg (NEG) Urine Ethyl Alcohol Neg (NEG) White Blood Count 8.5 x10^3/uL (4.0-11.0) 6.9 x10^3/uL (4.0-11.0) Red Blood Count 4.32 x10^6/uL (3.50-5.40) 4.22 x10^6/uL (3.50-5.40) Hemoglobin 11.9 g/dL (12.0-15.5) 11.6 g/dL (12.0-15.5) Hematocrit 37.0 % (36.0-47.0) 36.2 % (36.0-47.0) Mean Corpuscular Volume 86 fL (79-100) 86 fL (79-100) Mean Corpuscular Hemoglobin 28 pg (25-35) 28 pg (25-35) Mean Corpuscular Hemoglobin Concent 32 g/dL (31-37) 32 g/dL (31-37) Red Cell Distribution Width 17.7 % (11.5-14.5) 17.8 % (11.5-14.5) Platelet Count 404 x10^3/uL (140-400) 359 x10^3/uL (140-400) Neutrophils (%) (Auto) 55 % (31-73) 45 % (31-73) Lymphocytes (%) (Auto) 34 % (24-48) 43 % (24-48) Monocytes (%) (Auto) 7 % (0-9) 8 % (0-9) Eosinophils (%) (Auto) 4 % (0-3) 4 % (0-3) Basophils (%) (Auto) 1 % (0-3) 1 % (0-3) Neutrophils # (Auto) 4.7 x10^3uL (1.8-7.7) 3.1 x10^3uL (1.8-7.7) Lymphocytes # (Auto) 2.9 x10^3/uL (1.0-4.8) 2.9 x10^3/uL (1.0-4.8) Monocytes # (Auto) 0.6 x10^3/uL (0.0-1.1) 0.6 x10^3/uL (0.0-1.1) Eosinophils # (Auto) 0.3 x10^3/uL (0.0-0.7) 0.3 x10^3/uL (0.0-0.7) Basophils # (Auto) 0.0 x10^3/uL (0.0-0.2) 0.0 x10^3/uL (0.0-0.2) Sodium Level 142 mmol/L (136-145) 143 mmol/L (136-145) Potassium Level 4.3 mmol/L (3.5-5.1) 3.9 mmol/L (3.5-5.1) Chloride Level 105 mmol/L (98-107) 106 mmol/L (98-107) Carbon Dioxide Level 28 mmol/L (21-32) 29 mmol/L (21-32) Anion Gap 9 (6-14) 8 (6-14) Blood Urea Nitrogen 9 mg/dL (7-20) 13 mg/dL (7-20) Creatinine 0.7 mg/dL (0.6-1.0) 0.8 mg/dL (0.6-1.0) Estimated GFR (Cockcroft-Gault) 87.5 75.0 BUN/Creatinine Ratio 13 (6-20) Glucose Level 92 mg/dL (70-99) 96 mg/dL (70-99) Calcium Level 9.0 mg/dL (8.5-10.1) 8.6 mg/dL (8.5-10.1) Magnesium Level 2.0 mg/dL (1.8-2.4) Total Bilirubin 0.3 mg/dL (0.2-1.0) Aspartate Amino Transf (AST/SGOT) 9 U/L (15-37) Alanine Aminotransferase (ALT/SGPT) 12 U/L (14-59) Alkaline Phosphatase 92 U/L (46-116) Creatine Kinase 57 U/L (26-192) Creatine Kinase MB (Mass) 0.6 ng/mL (0.0-3.6) Creatine Kinase MB Relative Index % (0-4) Troponin I Quantitative < 0.017 ng/mL (0.000-0.055) < 0.017 ng/mL (0.000-0.055) KO-Ide-A-Type Natriuretic Peptide 62 pg/mL (0-124) Total Protein 7.3 g/dL (6.4-8.2) Albumin 3.4 g/dL (3.4-5.0) Albumin/Globulin Ratio 0.9 (1.0-1.7) Thyroid Stimulating Hormone (TSH) 0.841 uIU/mL (0.358-3.74) Triglycerides Level 59 mg/dL (0-150) Cholesterol Level 162 mg/dL (0-200) LDL Cholesterol, Calculated 91 mg/dL (0-100) VLDL Cholesterol, Calculated 12 mg/dL (0-40) Non-HDL Cholesterol Calculated 103 mg/dL (0-129) HDL Cholesterol 59 mg/dL (40-60) Cholesterol/HDL Ratio 2.7 Laboratory Tests Test 12/11/18 15:43 12/11/18 16:35 12/12/18 00:40 Urine Collection Type Unknown Urine Color Yellow Urine Clarity Clear Urine pH 6.5 Urine Specific [place] 1.020 Urine Protein Negative mg/dL (NEG-TRACE) Urine Glucose (UA) Negative mg/dL (NEG) Urine Ketones (Stick) Negative mg/dL (NEG) Urine Blood Negative (NEG) Urine Nitrite Negative (NEG) Urine Bilirubin Negative (NEG) Urine Urobilinogen Dipstick 0.2 mg/dL (0.2 mg/dL) Urine Leukocyte Esterase Negative (NEG) Urine RBC 0 /HPF (0-2) Urine WBC 0 /HPF (0-4) Urine Squamous Epithelial Cells Few /LPF Urine Bacteria 0 /HPF (0-FEW) Urine Mucus Slight /LPF Urine Opiates Screen Neg (NEG) Urine Methadone Screen Neg (NEG) Urine Barbiturates Neg (NEG) Urine Phencyclidine Screen Neg (NEG) Urine Amphetamine/Methamphetamine Neg (NEG) Urine Benzodiazepines Screen Neg (NEG) Urine Cocaine Screen Neg (NEG) Urine Cannabinoids Screen Neg (NEG) Urine Ethyl Alcohol Neg (NEG) White Blood Count 8.5 x10^3/uL (4.0-11.0) 6.9 x10^3/uL (4.0-11.0) Red Blood Count 4.32 x10^6/uL (3.50-5.40) 4.22 x10^6/uL (3.50-5.40) Hemoglobin 11.9 g/dL (12.0-15.5) 11.6 g/dL (12.0-15.5) Hematocrit 37.0 % (36.0-47.0) 36.2 % (36.0-47.0) Mean Corpuscular Volume 86 fL (79-100) 86 fL (79-100) Mean Corpuscular Hemoglobin 28 pg (25-35) 28 pg (25-35) Mean Corpuscular Hemoglobin Concent 32 g/dL (31-37) 32 g/dL (31-37) Red Cell Distribution Width 17.7 % (11.5-14.5) 17.8 % (11.5-14.5) Platelet Count 404 x10^3/uL (140-400) 359 x10^3/uL (140-400) Neutrophils (%) (Auto) 55 % (31-73) 45 % (31-73) Lymphocytes (%) (Auto) 34 % (24-48) 43 % (24-48) Monocytes (%) (Auto) 7 % (0-9) 8 % (0-9) Eosinophils (%) (Auto) 4 % (0-3) 4 % (0-3) Basophils (%) (Auto) 1 % (0-3) 1 % (0-3) Neutrophils # (Auto) 4.7 x10^3uL (1.8-7.7) 3.1 x10^3uL (1.8-7.7) Lymphocytes # (Auto) 2.9 x10^3/uL (1.0-4.8) 2.9 x10^3/uL (1.0-4.8) Monocytes # (Auto) 0.6 x10^3/uL (0.0-1.1) 0.6 x10^3/uL (0.0-1.1) Eosinophils # (Auto) 0.3 x10^3/uL (0.0-0.7) 0.3 x10^3/uL (0.0-0.7) Basophils # (Auto) 0.0 x10^3/uL (0.0-0.2) 0.0 x10^3/uL (0.0-0.2) Sodium Level 142 mmol/L (136-145) 143 mmol/L (136-145) Potassium Level 4.3 mmol/L (3.5-5.1) 3.9 mmol/L (3.5-5.1) Chloride Level 105 mmol/L (98-107) 106 mmol/L (98-107) Carbon Dioxide Level 28 mmol/L (21-32) 29 mmol/L (21-32) Anion Gap 9 (6-14) 8 (6-14) Blood Urea Nitrogen 9 mg/dL (7-20) 13 mg/dL (7-20) Creatinine 0.7 mg/dL (0.6-1.0) 0.8 mg/dL (0.6-1.0) Estimated GFR (Cockcroft-Gault) 87.5 75.0 BUN/Creatinine Ratio 13 (6-20) Glucose Level 92 mg/dL (70-99) 96 mg/dL (70-99) Calcium Level 9.0 mg/dL (8.5-10.1) 8.6 mg/dL (8.5-10.1) Magnesium Level 2.0 mg/dL (1.8-2.4) Total Bilirubin 0.3 mg/dL (0.2-1.0) Aspartate Amino Transf (AST/SGOT) 9 U/L (15-37) Alanine Aminotransferase (ALT/SGPT) 12 U/L (14-59) Alkaline Phosphatase 92 U/L (46-116) Creatine Kinase 57 U/L (26-192) Creatine Kinase MB (Mass) 0.6 ng/mL (0.0-3.6) Creatine Kinase MB Relative Index % (0-4) Troponin I Quantitative < 0.017 ng/mL (0.000-0.055) < 0.017 ng/mL (0.000-0.055) UG-Pvb-G-Type Natriuretic Peptide 62 pg/mL (0-124) Total Protein 7.3 g/dL (6.4-8.2) Albumin 3.4 g/dL (3.4-5.0) Albumin/Globulin Ratio 0.9 (1.0-1.7) Thyroid Stimulating Hormone (TSH) 0.841 uIU/mL (0.358-3.74) Triglycerides Level 59 mg/dL (0-150) Cholesterol Level 162 mg/dL (0-200) LDL Cholesterol, Calculated 91 mg/dL (0-100) VLDL Cholesterol, Calculated 12 mg/dL (0-40) Non-HDL Cholesterol Calculated 103 mg/dL (0-129) HDL Cholesterol 59 mg/dL (40-60) Cholesterol/HDL Ratio 2.7 Images Images Comparison made to 05/24/2018. CLINICAL INDICATION: Pain after fall. AP, lateral and odontoid views of the cervical spine show normal sagittal alignment through the C6 level. No prevertebral soft tissue swelling. Posterior elements are intact. No apparent fracture. Mild endplate hypertrophic changes throughout. C1-C2 articulation unremarkable. 3 views thoracic spine show normal sagittal alignment. Vertebral body heights are maintained. Mild endplate hypertrophic changes throughout with multilevel disc space narrowing. No paraspinous soft tissue abnormality. 3 views of lumbar spine show normal sagittal alignment. Vertebral body heights are maintained. Mild endplate hypertrophic changes throughout. Multilevel disc space narrowing with mild to moderate arthrosis lower lumbar apophyseal joints. IMPRESSION: 1. No acute radiographic abnormality. 2. Mild multilevel cervical, thoracic and lumbar spondylosis. Electronically signed by: Cruz Escoto MD (12/12/2018 1:43 AM) [facility] VTE Prophylaxis Ordered VTE Prophylaxis Devices: No VTE Pharmacological Prophylaxi: Yes Assessment/Plan Assessment/Plan IMPRESSION CHEST PAIN risk factors hyperlipidemia, post menopausal state, obesity, smoker Mild multilevel cervical, thoracic and lumbar spondylosis. History of chronic back pain. History of chronic pain med seeking behavior. Degenerative joint disease. PLAN TELE ADMIT ECHO SERIAL TROPONIN I cardiology consult if echo ok may benefit from outpt stress testing, plan d/c later today if ok with cardiology sq lovenox dvt prophylaxis JAZZY GUERRA MD Dec 12, 2018 09:59
[2018-12-12 11:00] VITALS: BP 107/60
--- NOTE | 2018-12-12 12:08 | NUR ---
SW following pt for anticipated dc needs. Chart reviewed. Pt lives at home with spouse and on room air. No discharge needs noted at this time. Will continue to assess needs.
--- NOTE | 2018-12-12 12:09 | PDOC2 ---
RIGOBERTOCHRISTINE HERNANDEZ ESTELA 12/12/18 1208: CARDIAC CONSULT DATE OF CONSULT Date of Consult DATE: 12/12/18 TIME: 12:04 REASON FOR CONSULT Reason for Consult: chest pain REFERRING PHYSICIAN Referring Physician: Jenny Veliz APRN SOURCE Source: Chart review, Patient HISTORY OF PRESENT ILLNESS HISTORY OF PRESENT ILLNESS This is a 53 yo female who presented secondary to chest/epigastric pain. Has been present for the last 3 days. Constant in nature. No SOA, dizziness, diaphoresis, or palpitations. Also c/o back pain status post falling 4 days ago. Describes as constant and sharp. Oral pain therapy has improved. PAST MEDICAL HISTORY Cardiovascular: Hyperlipidemia Pulmonary: No pertinent hx CENTRAL NERVOUS SYSTEM: Other (no pertinent hx) GI: No pertinent hx Heme/Onc: No pertinent hx Hepatobiliary: No pertinent hx Psych: Anxiety, Depression Musculoskeletal: low back pain Rheumatologic: No pertinent hx Infectious disease: No pertinent hx ENT: No pertinent hx Renal/: No pertinent hx Endocrine: No pertinent hx Dermatology: No pertinent hx PAST SURGICAL HISTORY Past Surgical History: Other (back and left arm surgery) FAMILY HISTORY Family History: Hypertension SOCIAL HISTORY Smoke: <1 pack per day ALCOHOL: none Drugs: None Lives: with Family CURRENT MEDICATIONS CURRENT MEDICATIONS Current Medications Medications (Trade) Dose Ordered Sig/Jayy Route PRN Reason Start Time Stop Time Status Last Admin Dose Admin Aspirin (Anthony Aspirin) 325 mg 1X ONCE PO 12/11/18 15:30 12/11/18 15:34 DC 12/11/18 18:17 Cyclobenzaprine HCl (Flexeril) 10 mg 1X ONCE PO 12/11/18 15:30 12/11/18 15:34 DC 12/11/18 18:17 Acetaminophen (Tylenol) 1,000 mg 1X ONCE PO 12/11/18 18:00 12/11/18 18:01 DC 12/11/18 18:18 Fentanyl Citrate (Fentanyl 2ml Vial) 50 mcg PRN Q1HR PRN IV PAIN 12/11/18 19:30 12/12/18 19:29 12/11/18 21:52 Aspirin (Children'S Aspirin) 81 mg DAILY PO 12/12/18 09:00 12/12/18 08:29 Cyclobenzaprine HCl (Flexeril) 10 mg TID PO 12/11/18 21:00 12/12/18 08:29 Duloxetine HCl (Cymbalta) 30 mg BID PO 12/11/18 21:00 12/12/18 08:29 Simvastatin (Zocor) 10 mg QHS PO 12/11/18 21:00 12/11/18 21:52 Tramadol HCl (Ultram) 50 mg PRN Q8HRS PRN PO MODERATE PAIN 12/11/18 20:45 12/12/18 07:02 Gabapentin (Neurontin) 300 mg TID PO 12/11/18 21:00 12/12/18 08:28 Clonazepam (KlonoPIN) 1 mg DAILY PO 12/11/18 21:30 12/12/18 08:29 ALLERGIES ALLERGIES: Coded Allergies: ibuprofen (Verified Allergy, Intermediate, rash, TOLERATES KETOROLAC, 04/08) naproxen (Verified Allergy, Intermediate, rash, TOLERATES KETOROLAC, ) ROS Review of System 14 point ROS conducted with pertinent positives noted above in HPI. PHYSICAL EXAM General: Alert, Oriented X3, Cooperative, No acute distress HEENT: Atraumatic, Mucous membr. moist/pink Lungs: Clear to auscultation, Normal air movement Heart: Regular rate, Normal S1, Normal S2 Abdomen: Soft, No tenderness Extremities: No edema, Normal pulses Skin: No significant lesion Neuro: Normal speech, Sensation intact Psych/Mental Status: Mental status NL, Mood NL MUSCULOSKELETAL: Osteoarthritic changes both hands VITALS VITALS Vital Signs Date Time Temp Pulse Resp B/P (MAP) Pulse Ox O2 Delivery O2 Flow Rate FiO2 12/12/18 11:00 98.2 70 16 107/60 (76) 98 Room Air 98.2 LABS Lab: Laboratory Tests Test 12/11/18 15:43 12/11/18 16:35 12/12/18 00:40 Urine Collection Type Unknown Urine Color Yellow Urine Clarity Clear Urine pH 6.5 Urine Specific [place] 1.020 Urine Protein Negative mg/dL (NEG-TRACE) Urine Glucose (UA) Negative mg/dL (NEG) Urine Ketones (Stick) Negative mg/dL (NEG) Urine Blood Negative (NEG) Urine Nitrite Negative (NEG) Urine Bilirubin Negative (NEG) Urine Urobilinogen Dipstick 0.2 mg/dL (0.2 mg/dL) Urine Leukocyte Esterase Negative (NEG) Urine RBC 0 /HPF (0-2) Urine WBC 0 /HPF (0-4) Urine Squamous Epithelial Cells Few /LPF Urine Bacteria 0 /HPF (0-FEW) Urine Mucus Slight /LPF Urine Opiates Screen Neg (NEG) Urine Methadone Screen Neg (NEG) Urine Barbiturates Neg (NEG) Urine Phencyclidine Screen Neg (NEG) Urine Amphetamine/Methamphetamine Neg (NEG) Urine Benzodiazepines Screen Neg (NEG) Urine Cocaine Screen Neg (NEG) Urine Cannabinoids Screen Neg (NEG) Urine Ethyl Alcohol Neg (NEG) White Blood Count 8.5 x10^3/uL (4.0-11.0) 6.9 x10^3/uL (4.0-11.0) Red Blood Count 4.32 x10^6/uL (3.50-5.40) 4.22 x10^6/uL (3.50-5.40) Hemoglobin 11.9 g/dL (12.0-15.5) 11.6 g/dL (12.0-15.5) Hematocrit 37.0 % (36.0-47.0) 36.2 % (36.0-47.0) Mean Corpuscular Volume 86 fL (79-100) 86 fL (79-100) Mean Corpuscular Hemoglobin 28 pg (25-35) 28 pg (25-35) Mean Corpuscular Hemoglobin Concent 32 g/dL (31-37) 32 g/dL (31-37) Red Cell Distribution Width 17.7 % (11.5-14.5) 17.8 % (11.5-14.5) Platelet Count 404 x10^3/uL (140-400) 359 x10^3/uL (140-400) Neutrophils (%) (Auto) 55 % (31-73) 45 % (31-73) Lymphocytes (%) (Auto) 34 % (24-48) 43 % (24-48) Monocytes (%) (Auto) 7 % (0-9) 8 % (0-9) Eosinophils (%) (Auto) 4 % (0-3) 4 % (0-3) Basophils (%) (Auto) 1 % (0-3) 1 % (0-3) Neutrophils # (Auto) 4.7 x10^3uL (1.8-7.7) 3.1 x10^3uL (1.8-7.7) Lymphocytes # (Auto) 2.9 x10^3/uL (1.0-4.8) 2.9 x10^3/uL (1.0-4.8) Monocytes # (Auto) 0.6 x10^3/uL (0.0-1.1) 0.6 x10^3/uL (0.0-1.1) Eosinophils # (Auto) 0.3 x10^3/uL (0.0-0.7) 0.3 x10^3/uL (0.0-0.7) Basophils # (Auto) 0.0 x10^3/uL (0.0-0.2) 0.0 x10^3/uL (0.0-0.2) Sodium Level 142 mmol/L (136-145) 143 mmol/L (136-145) Potassium Level 4.3 mmol/L (3.5-5.1) 3.9 mmol/L (3.5-5.1) Chloride Level 105 mmol/L (98-107) 106 mmol/L (98-107) Carbon Dioxide Level 28 mmol/L (21-32) 29 mmol/L (21-32) Anion Gap 9 (6-14) 8 (6-14) Blood Urea Nitrogen 9 mg/dL (7-20) 13 mg/dL (7-20) Creatinine 0.7 mg/dL (0.6-1.0) 0.8 mg/dL (0.6-1.0) Estimated GFR (Cockcroft-Gault) 87.5 75.0 BUN/Creatinine Ratio 13 (6-20) Glucose Level 92 mg/dL (70-99) 96 mg/dL (70-99) Calcium Level 9.0 mg/dL (8.5-10.1) 8.6 mg/dL (8.5-10.1) Magnesium Level 2.0 mg/dL (1.8-2.4) Total Bilirubin 0.3 mg/dL (0.2-1.0) Aspartate Amino Transf (AST/SGOT) 9 U/L (15-37) Alanine Aminotransferase (ALT/SGPT) 12 U/L (14-59) Alkaline Phosphatase 92 U/L (46-116) Creatine Kinase 57 U/L (26-192) Creatine Kinase MB (Mass) 0.6 ng/mL (0.0-3.6) Creatine Kinase MB Relative Index % (0-4) Troponin I Quantitative < 0.017 ng/mL (0.000-0.055) < 0.017 ng/mL (0.000-0.055) LX-Qwl-W-Type Natriuretic Peptide 62 pg/mL (0-124) Total Protein 7.3 g/dL (6.4-8.2) Albumin 3.4 g/dL (3.4-5.0) Albumin/Globulin Ratio 0.9 (1.0-1.7) Thyroid Stimulating Hormone (TSH) 0.841 uIU/mL (0.358-3.74) Triglycerides Level 59 mg/dL (0-150) Cholesterol Level 162 mg/dL (0-200) LDL Cholesterol, Calculated 91 mg/dL (0-100) VLDL Cholesterol, Calculated 12 mg/dL (0-40) Non-HDL Cholesterol Calculated 103 mg/dL (0-129) HDL Cholesterol 59 mg/dL (40-60) Cholesterol/HDL Ratio 2.7 ASSESSMENT/PLAN ASSESSMENT/PLAN 1. Chest pain, atypical; troponin series normal- AMI ruled out. Most probably MSK in origin 2. Hyperlipemia; statin 3. Acute on chronic back pain; opioid dependent. as per PCP 4. Depression/anxiety Recommendations Check lipid panel Obtain echo to assess LV systolic function. If echo WNL, may discharge form a CV standpoint Consider outpatient ischemic eval given risk factors. JAZMINE ARROYO MD 12/13/18 0742: CARDIAC CONSULT ASSESSMENT/PLAN ASSESSMENT/PLAN Patient seen and examined 12/12/18. Agree with TOWER EQUIPMENT REPAIRER's assessment and plan. CP with atypical features and most probably musculoskeletal. [place] ruled out. 2D echo showed normal LV function without any wall motion abnormalities Plan ischemic evaluation as outpatient Thank you for your consultation CHRISTINE FRANKLIN APRN Dec 12, 2018 12:08 JAZMINE ARROYO MD Dec 13, 2018 07:42
[2018-12-12] MEDS: fentaNYL PF VIAL 100 MCG/2 ML VIAL IV PRN (12:14)
[2018-12-12] MEDS ORDERED: NON FORMULARY ITEM (Albuterol Sulfate (Proair Respiclick) 1 PUFF) IH PRN (12:15)
[2018-12-12] MEDS ORDERED: CYCLOBENZAPRINE 10 MG TABLET. PO PRN (12:15)
[2018-12-12] MEDS ORDERED: traMADol 50 MG TABLET PO PRN (12:15)
[2018-12-12] MEDS ORDERED: ALBUTEROL SULFATE 2.5 MG/3 ML NEBU. INH PRN (12:15)
[2018-12-12] MEDS ORDERED: ALBUTEROL SULFATE 2.5 MG/3 ML NEBU. NEB PRN (12:30)
--- NOTE | 2018-12-12 12:37 | CARD ---
MR#: [id number] Date of Study: 12/12/2018 Ordering Physician: CHRISTINE FRANKLIN, Referring Physician: JAZZY GUERRA Tech: Marbella Cuello RDCS APPROVED REPORT EXAM: Two-dimensional and M-mode echocardiogram with Doppler and color Doppler. Other Information Quality : Good INDICATION Chest Pain 2D DIMENSIONS RVDd2.7 (2.9-3.5cm)Left Atrium(2D)3.4 (1.6-4.0cm) IVSd1.0 (0.7-1.1cm)Aortic Root(2D)2.9 (2.0-3.7cm) LVDd5.3 (3.9-5.9cm)LVOT Diameter2.2 (1.8-2.4cm) PWd1.1 (0.7-1.1cm)LVDs4.2 (2.5-4.0cm) FS (%) 21.3 %SV58.6 ml LVEF(%)42.8 (>50%) Aortic Valve AoV Peak Jose.149.9cm/sAoV VTI29.0cm AO Peak GR.9.0mmHgLVOT Peak Jose.117.3cm/s LVOT VTI 25.33cmAO Mean GR.5mmHg YNES (VMAX)2.42fz5LJT (VTI)3.25cm2 Mitral Valve MV E Nfyzvkfq41.1cm/sMV DECEL [id number] MV A Lquqqmcp98.0cm/sMV SIO361gg E/A Ratio0.8MVA (PHT)1.80cm2 TDI E/Lateral E'6.1E/Medial E'8.3 Pulmonary Vein S1 Mgivjkgw50.8cm/sD2 Dnqdvqrm79.0cm/s LEFT VENTRICLE The left ventricle is normal size. There is normal left ventricular wall thickness. The left ventricu lar systolic function is normal and the ejection fraction is within normal range. EF 55% There is nor mal LV segmental wall motion. Transmitral Doppler flow pattern is Grade I-abnormal relaxation pattern . RIGHT VENTRICLE The right ventricle is normal size. The right ventricular systolic function is normal. ATRIA The left atrium size is normal. The right atrium size is normal. The interatrial septum is intact wit h no evidence for an atrial septal defect or patent foramen ovale as noted on 2-D or Doppler imaging. AORTIC VALVE The aortic valve is calcified but opens well. Doppler and Color Flow revealed no significant aortic r egurgitation. There is no significant aortic valvular stenosis. MITRAL VALVE The mitral valve is calcified but opens well. There is no evidence of mitral valve prolapse. There is no mitral valve stenosis. Doppler and Color-flow revealed trace to mild mitral regurgitation. TRICUSPID VALVE The tricuspid valve is normal in structure and function. Doppler and Color Flow revealed no tricuspid valve regurgitation noted. There is no tricuspid valve stenosis. PULMONIC VALVE The pulmonic valve is not well visualized. Doppler and Color Flow revealed no pulmonic valvular regur gitation. There is no pulmonic valvular stenosis. GREAT VESSELS The aortic root is normal in size. The ascending aorta is normal in size. The IVC is normal in size a nd collapses >50% with inspiration. PERICARDIAL EFFUSION There is no evidence of significant pericardial effusion. Critical Notification Critical Value: No <Conclusion> The left ventricular systolic function is normal and the ejection fraction is within normal range. EF 55% There is normal LV segmental wall motion. Signed by : Jose M Red, Electronically Approved : 12/12/2018 12:36:55
[2018-12-12] MEDS ORDERED: BUDESONIDE 0.5 MG/2 ML NEBU. NEB SCH (13:00)
[2018-12-12] MEDS ORDERED: BENZONATATE 100 MG CAPSULE. PO SCH (14:00)
[2018-12-12 15:00] VITALS: BP 95/52
[2018-12-12] MEDS ORDERED: ALBUTEROL SULFATE 2.5 MG/3 ML NEBU. NEB SCH ×2 (16:00)
[2018-12-12] MEDS ORDERED: NON FORMULARY ITEM (Albuterol Sulfate (Ventolin Hfa Inhaler) 2 PUFF) INH SCH (16:00)
[2018-12-12] MEDS ORDERED: PANTOPRAZOLE 40 MG TABLET.DR. PO SCH (16:30)
[2018-12-12] MEDS ORDERED: BUPIVACAINE MPF 0.25% 10 ML VIAL. IJ ONE (16:30)
[2018-12-12] MEDS ORDERED: methylPREDNISolone ACETATE 40 MG/ML VIAL. IM ONE ×2 (16:30)
[2018-12-12] MEDS ORDERED: oxyCODONE IR 5 MG TABLET PO PRN (16:30)
--- NOTE | 2018-12-12 16:42 | PDOC4 ---
PROCEDURE Procedure At her request,I have injected painful left sacroiliac joint under aseptic skin technique after skin prep with alcohol prep with 2 ml of 0.25% marcaine solution mixed with 1 ml of depo medrol 40 mg/ 1 ml solution and she tolerated the procedure satisfactorily without any side effects and after injection walked without any limp. As she is walking without any limp, I did not inject her left trochanteric bursa today. TITA HEARD MD Dec 12, 2018 16:42
[2018-12-12] MEDS ORDERED: predniSONE 10 MG TABLET PO SCH (17:00)
--- NOTE | 2018-12-12 17:14 | NUR ---
steroid injection administered by Dr Price.
--- NOTE | 2018-12-12 18:28 | PDOC3 ---
Discharge Summary Date of Admission: Dec 11, 2018 Date of Discharge: Dec 12, 2018 Follow-Up: 3-5 days Admitting Diagnosis comment: DISCHARGE DX Assessment/Plan IMPRESSION CHEST PAIN risk factors hyperlipidemia, post menopausal state, obesity, smoker Mild multilevel cervical, thoracic and lumbar spondylosis. History of chronic back pain. History of chronic pain med seeking behavior. Degenerative joint disease. PLAN TELE ADMIT ECHO SERIAL TROPONIN I cardiology consult if echo ok may benefit from outpt stress testing, plan d/c later today if ok with cardiology sq lovenox dvt prophylaxis SEE PCP NEXT WEEK FINAL DIAGNOSIS Problems Medical Problems: (1) Acute cervical myofascial strain Status: Acute (2) Chest pain Status: Acute (3) Chronic low back pain Status: Acute (4) Contusion of thoracic wall Status: Acute (5) Lumbar contusion Status: Acute Brief Hospital Course Ms. Santa is a 53 old [sex] who presented with [CHEST AND LOW BACK PAIN ] CONDITION AT DISCHARGE: Improved Discharge Medications Current Medications Aspirin (Anthony Aspirin) 325 mg 1X ONCE PO Last administered on 12/11/18 18:17 ; Start 12/11/18 at 15:30; Stop 12/11/18 at 15:34; Status DC Cyclobenzaprine HCl (Flexeril) 10 mg 1X ONCE PO Last administered on 12/11/18 18:17; Start 12/11/18 at 15:30; Stop 12/11/18 at 15:34; Status DC Acetaminophen (Tylenol) 1,000 mg 1X ONCE PO Last administered on 12/11/18 18: 18; Start 12/11/18 at 18:00; Stop 12/11/18 at 18:01; Status DC Ondansetron HCl (Zofran) 4 mg PRN Q8HRS PRN IV NAUSEA/VOMITING; Start 12/11/18 at 19:30; Stop 12/12/18 at 19:29 Fentanyl Citrate (Fentanyl 2ml Vial) 50 mcg PRN Q1HR PRN IV PAIN Last administered on 12/12/18at 12:14; Start 12/11/18 at 19:30; Stop 12/12/18 at 19:29 Acetaminophen (Tylenol) 650 mg PRN Q4HRS PRN PO FEVER; Start 12/11/18 at 19:30; Stop 12/12/18 at 19:29 Nitroglycerin (Nitrostat) 0.4 mg PRN Q5MIN PRN SL CHEST PAIN; Start 12/11/18 at 19:30; Stop 12/12/18 at 19:29 Aspirin (Children'S Aspirin) 81 mg DAILY PO Last administered on 12/12/18 08:29 ; Start 12/12/18 at 09:00 Clonazepam (KlonoPIN) 1 mg DAILY PO ; Start 12/12/18 at 09:00; Stop 12/12/18 at 09 :00; Status DC Cyclobenzaprine HCl (Flexeril) 10 mg TID PO Last administered on 12/12/18 08:29 ; Start 12/11/18 at 21:00 Duloxetine HCl (Cymbalta) 30 mg BID PO Last administered on 12/12/18 08:29; Start 12/11/18 at 21:00 Simvastatin (Zocor) 10 mg QHS PO Last administered on 12/11/18 21:52; Start 12/11/18 at 21:00 Tramadol HCl (Ultram) 50 mg PRN Q8HRS PRN PO MODERATE PAIN Last administered on 12/12/18 07:02; Start 12/11/18 at 20:45 Gabapentin (Neurontin) 300 mg TID PO Last administered on 12/12/18 14:51; Start 12/11/18 at 21:00 Non-Formulary Medication (Methylprednisolone (Medrol)) 1 pkg UD PO ; Start at 21:00; Status UNV Clonazepam (KlonoPIN) 1 mg DAILY PO Last administered on 12/12/18 08:29; Start 12/11/18 at 21:30 Albuterol Sulfate (Ventolin Neb Soln) 2.5 mg PRN Q6HRS PRN INH SHORTNESS OF BREATH; Start 12/12/18 at 12:15; Stop 12/12/18 at 12:37; Status DC Cyclobenzaprine HCl (Flexeril) 10 mg PRN TID PRN PO MUSCLE SPASMS; Start at 12:15 Tramadol HCl (Ultram) 50 mg PRN Q12HR PRN PO MILD TO MODERATE PAIN; Start at 12:15 Non-Formulary Medication (Albuterol Sulfate (Proair Respiclick)) 1 puff DAILY PRN IH SHORTNESS OF BREATH; Start 12/12/18 at 12:15; Status UNV Non-Formulary Medication (Albuterol Sulfate (Ventolin Hfa Inhaler)) 2 puff Q4HRS INH ; Start 12/12/18 at 16:00; Status UNV Benzonatate (Tessalon Perle) 100 mg [id number] PO Last administered on 12/12/18at 14: 51; Start 12/12/18 at 14:00 Non-Formulary Medication (Budesonide/ Formoterol Fumarate (Symbicort 160-4.5 Mcg Inhaler)) 2 puff BID IH ; Start 12/12/18 at 21:00; Status UNV Pantoprazole Sodium (Protonix) 40 mg DAILYAC PO Last administered on 12/12/18at 17:11; Start 12/12/18 at 16:30 Albuterol Sulfate (Ventolin Neb Soln) 2.5 mg Q4HRS NEB ; Start 12/12/18 at 16:00 ; Stop 12/12/18 at 16:00; Status DC Budesonide (Pulmicort) 0.5 mg RTBID NEB ; Start 12/12/18 at 13:00 Albuterol Sulfate (Ventolin Neb Soln) 2.5 mg PRN DAILY PRN NEB SHORTNESS OF BREATH; Start 12/12/18 at 12:30 Albuterol Sulfate (Ventolin Neb Soln) 2.5 mg RTQID NEB Last administered on 12/12at 15:09; Start 12/12/18 at 16:00 Methylprednisolone Acetate (DEPO-Medrol 40MG VIAL) 40 mg 1X ONCE IM ; Start 12/12/18 at 16:30; Stop 12/12/18 at 16:31; Status Cancel Bupivacaine HCl (Sensorcaine-Mpf 0.25%) 10 ml 1X ONCE IJ ; Start 12/12/18 at 16: 30; Stop 12/12/18 at 16:31; Status DC Methylprednisolone Acetate (DEPO-Medrol 40MG VIAL) 40 mg 1X ONCE IM ; Start 12/12/18 at 16:30; Stop 12/12/18 at 16:31; Status DC Oxycodone HCl (Roxicodone) 10 mg PRN Q6HRS PRN PO SEVERE PAIN Last administered on 12/12/18at 17:12; Start 12/12/18 at 16:30 Prednisone (Prednisone) 10 mg DAILY PO Last administered on 12/12/18at 17:12; Start 12/12/18 at 17:00 Active Scripts Active Doxycycline Hyclate 100 Mg Capsule 1 Cap PO BID Cephalexin 500 Mg Capsule 1 Cap PO QID Proair Hfa (Albuterol Sulfate) 8.5 Gm Hfa.aer.ad 1 Puff INH PRN Q6HRS PRN Cyclobenzaprine Hcl 10 Mg Tablet 1 Tab PO TID Medrol (Methylprednisolone) 4 Mg Tab.ds.pk 1 Pkg PO UD Cyclobenzaprine Hcl 10 Mg Tablet 1 Tab PO TID Tessalon Perle (Benzonatate) 100 Mg Capsule 100 Mg PO TID PRN Ventolin Hfa Inhaler (Albuterol Sulfate) 18 Gm Hfa.aer.ad 2 Puff INH Q4HRS Tessalon Perle (Benzonatate) 100 Mg Capsule 1 Cap PO TID Cyclobenzaprine Hcl 10 Mg Tablet 1 Tab PO TID Tramadol Hcl 50 Mg Tablet 1 Tab PO PRN Q12HR PRN Reported Gabapentin (Gabapentin) 300 Mg Capsule 300 Mg PO TID Cyclobenzaprine Hcl 10 Mg Tablet 10 Mg PO TID Aspirin 81 Mg Tab.chew 1 Tab PO DAILY Tramadol Hcl 50 Mg Tablet 50 Mg PO Q8HRS PRN Clonazepam 1 Mg Tablet 1 Mg PO DAILY Symbicort 160-4.5 Mcg Inhaler (Budesonide/Formoterol Fumarate) 10.2 Gm Hfa.aer.ad 2 Puff IH BID Simvastatin 10 Mg Tablet 1 Tab PO QHS Omeprazole 20 Mg Capsule.dr 1 Cap PO BID Cyclobenzaprine Hcl 10 Mg Tablet 1 Tab PO PRN TID PRN Cymbalta (Duloxetine Hcl) 30 Mg Capsule.dr 30 Mg PO BID Proair Respiclick (Albuterol Sulfate) 90 Mcg Aer.pow.ba 1 Puff IH DAILY PRN Vital Signs Vital Signs Date Time Temp Pulse Resp B/P (MAP) Pulse Ox O2 Delivery O2 Flow Rate FiO2 12/12/18 17:12 18 Room Air 12/12/18 15:11 96 12/12/18 15:00 98.0 67 95/52 (66) 98.0 Labs Laboratory Tests Test 12/11/18 15:43 12/11/18 16:35 12/12/18 00:40 Urine Collection Type Unknown Urine Color Yellow Urine Clarity Clear Urine pH 6.5 Urine Specific [place] 1.020 Urine Protein Negative mg/dL (NEG-TRACE) Urine Glucose (UA) Negative mg/dL (NEG) Urine Ketones (Stick) Negative mg/dL (NEG) Urine Blood Negative (NEG) Urine Nitrite Negative (NEG) Urine Bilirubin Negative (NEG) Urine Urobilinogen Dipstick 0.2 mg/dL (0.2 mg/dL) Urine Leukocyte Esterase Negative (NEG) Urine RBC 0 /HPF (0-2) Urine WBC 0 /HPF (0-4) Urine Squamous Epithelial Cells Few /LPF Urine Bacteria 0 /HPF (0-FEW) Urine Mucus Slight /LPF Urine Opiates Screen Neg (NEG) Urine Methadone Screen Neg (NEG) Urine Barbiturates Neg (NEG) Urine Phencyclidine Screen Neg (NEG) Urine Amphetamine/Methamphetamine Neg (NEG) Urine Benzodiazepines Screen Neg (NEG) Urine Cocaine Screen Neg (NEG) Urine Cannabinoids Screen Neg (NEG) Urine Ethyl Alcohol Neg (NEG) White Blood Count 8.5 x10^3/uL (4.0-11.0) 6.9 x10^3/uL (4.0-11.0) Red Blood Count 4.32 x10^6/uL (3.50-5.40) 4.22 x10^6/uL (3.50-5.40) Hemoglobin 11.9 g/dL (12.0-15.5) 11.6 g/dL (12.0-15.5) Hematocrit 37.0 % (36.0-47.0) 36.2 % (36.0-47.0) Mean Corpuscular Volume 86 fL (79-100) 86 fL (79-100) Mean Corpuscular Hemoglobin 28 pg (25-35) 28 pg (25-35) Mean Corpuscular Hemoglobin Concent 32 g/dL (31-37) 32 g/dL (31-37) Red Cell Distribution Width 17.7 % (11.5-14.5) 17.8 % (11.5-14.5) Platelet Count 404 x10^3/uL (140-400) 359 x10^3/uL (140-400) Neutrophils (%) (Auto) 55 % (31-73) 45 % (31-73) Lymphocytes (%) (Auto) 34 % (24-48) 43 % (24-48) Monocytes (%) (Auto) 7 % (0-9) 8 % (0-9) Eosinophils (%) (Auto) 4 % (0-3) 4 % (0-3) Basophils (%) (Auto) 1 % (0-3) 1 % (0-3) Neutrophils # (Auto) 4.7 x10^3uL (1.8-7.7) 3.1 x10^3uL (1.8-7.7) Lymphocytes # (Auto) 2.9 x10^3/uL (1.0-4.8) 2.9 x10^3/uL (1.0-4.8) Monocytes # (Auto) 0.6 x10^3/uL (0.0-1.1) 0.6 x10^3/uL (0.0-1.1) Eosinophils # (Auto) 0.3 x10^3/uL (0.0-0.7) 0.3 x10^3/uL (0.0-0.7) Basophils # (Auto) 0.0 x10^3/uL (0.0-0.2) 0.0 x10^3/uL (0.0-0.2) Sodium Level 142 mmol/L (136-145) 143 mmol/L (136-145) Potassium Level 4.3 mmol/L (3.5-5.1) 3.9 mmol/L (3.5-5.1) Chloride Level 105 mmol/L (98-107) 106 mmol/L (98-107) Carbon Dioxide Level 28 mmol/L (21-32) 29 mmol/L (21-32) Anion Gap 9 (6-14) 8 (6-14) Blood Urea Nitrogen 9 mg/dL (7-20) 13 mg/dL (7-20) Creatinine 0.7 mg/dL (0.6-1.0) 0.8 mg/dL (0.6-1.0) Estimated GFR (Cockcroft-Gault) 87.5 75.0 BUN/Creatinine Ratio 13 (6-20) Glucose Level 92 mg/dL (70-99) 96 mg/dL (70-99) Calcium Level 9.0 mg/dL (8.5-10.1) 8.6 mg/dL (8.5-10.1) Magnesium Level 2.0 mg/dL (1.8-2.4) Total Bilirubin 0.3 mg/dL (0.2-1.0) Aspartate Amino Transf (AST/SGOT) 9 U/L (15-37) Alanine Aminotransferase (ALT/SGPT) 12 U/L (14-59) Alkaline Phosphatase 92 U/L (46-116) Creatine Kinase 57 U/L (26-192) Creatine Kinase MB (Mass) 0.6 ng/mL (0.0-3.6) Creatine Kinase MB Relative Index % (0-4) Troponin I Quantitative < 0.017 ng/mL (0.000-0.055) < 0.017 ng/mL (0.000-0.055) LN-Dxj-Q-Type Natriuretic Peptide 62 pg/mL (0-124) Total Protein 7.3 g/dL (6.4-8.2) Albumin 3.4 g/dL (3.4-5.0) Albumin/Globulin Ratio 0.9 (1.0-1.7) Thyroid Stimulating Hormone (TSH) 0.841 uIU/mL (0.358-3.74) Triglycerides Level 59 mg/dL (0-150) Cholesterol Level 162 mg/dL (0-200) LDL Cholesterol, Calculated 91 mg/dL (0-100) VLDL Cholesterol, Calculated 12 mg/dL (0-40) Non-HDL Cholesterol Calculated 103 mg/dL (0-129) HDL Cholesterol 59 mg/dL (40-60) Cholesterol/HDL Ratio 2.7 Laboratory Tests Test 12/12/18 00:40 White Blood Count 6.9 x10^3/uL (4.0-11.0) Red Blood Count 4.22 x10^6/uL (3.50-5.40) Hemoglobin 11.6 g/dL (12.0-15.5) Hematocrit 36.2 % (36.0-47.0) Mean Corpuscular Volume 86 fL (79-100) Mean Corpuscular Hemoglobin 28 pg (25-35) Mean Corpuscular Hemoglobin Concent 32 g/dL (31-37) Red Cell Distribution Width 17.8 % (11.5-14.5) Platelet Count 359 x10^3/uL (140-400) Neutrophils (%) (Auto) 45 % (31-73) Lymphocytes (%) (Auto) 43 % (24-48) Monocytes (%) (Auto) 8 % (0-9) Eosinophils (%) (Auto) 4 % (0-3) Basophils (%) (Auto) 1 % (0-3) Neutrophils # (Auto) 3.1 x10^3uL (1.8-7.7) Lymphocytes # (Auto) 2.9 x10^3/uL (1.0-4.8) Monocytes # (Auto) 0.6 x10^3/uL (0.0-1.1) Eosinophils # (Auto) 0.3 x10^3/uL (0.0-0.7) Basophils # (Auto) 0.0 x10^3/uL (0.0-0.2) Sodium Level 143 mmol/L (136-145) Potassium Level 3.9 mmol/L (3.5-5.1) Chloride Level 106 mmol/L (98-107) Carbon Dioxide Level 29 mmol/L (21-32) Anion Gap 8 (6-14) Blood Urea Nitrogen 13 mg/dL (7-20) Creatinine 0.8 mg/dL (0.6-1.0) Estimated GFR (Cockcroft-Gault) 75.0 Glucose Level 96 mg/dL (70-99) Calcium Level 8.6 mg/dL (8.5-10.1) Troponin I Quantitative < 0.017 ng/mL (0.000-0.055) Triglycerides Level 59 mg/dL (0-150) Cholesterol Level 162 mg/dL (0-200) LDL Cholesterol, Calculated 91 mg/dL (0-100) VLDL Cholesterol, Calculated 12 mg/dL (0-40) Non-HDL Cholesterol Calculated 103 mg/dL (0-129) HDL Cholesterol 59 mg/dL (40-60) Cholesterol/HDL Ratio 2.7 Allergies Allergies Coded Allergies Type Severity Reaction Last Updated Verified ibuprofen Allergy Intermediate rash, TOLERATES KETOROLAC 04/08/18 Yes naproxen Allergy Intermediate rash, TOLERATES KETOROLAC 04/08/18 Yes Disposition/Orders: D/C to Home Patient Instructions D/C PLANNING 38 MIN JAZZY GUERRA MD Dec 12, 2018 18:28
[2018-12-12] MEDS ORDERED: ACET325T9 PO (18:30)
--- NOTE | 2018-12-12 18:31 | DISCH ---
DISCHARGE INSTRUCTIONS Condition on Discharge Condition on Discharge: Stable Activity After Discharge Activity Instructions for Disc: Activity as tolerated Lifting Instructions after Dis: No heavy lifting, No pulling or pushing Exercise Instruction after Dis: Walk 10 min, 3 x per day, Progress as tolerated Weight Bearing Status after Di: As tolerated Diet after Discharge Diet after Discharge: Cardiac, Regular Diet Texture: Regular Liquid Texture: Thin Liquid Swallowing Supervision: None needed Wound Incision Care Wound/Incision Care: Ice to area for comfort Checks after Discharge Checks after discharge: Check blood press - daily Contacting the DR. after DC Call your doctor for: If your condition worsens Treatment/Equipment after DC Adaptive Equipment Issued: None JAZZY GUERRA MD Dec 12, 2018 18:31
--- NOTE | 2018-12-12 18:43 | NUR ---
Pt able to discharge tonight. Spoke to Dr Serrano and was able to call in Tramadol 50mg 1 tab po q 8 hours prn pain #20 no refills to [facility] at [phone].
--- NOTE | 2018-12-12 19:15 | NUR ---
Pt discharged to home with . Pain is much improved. Reviewed discharge instructions. Gave Dr Patel business card and instructions to follow up as out patient for further testing. verbalized understanding. Discussed discharge instructions including activity, diet, medications and follow up. Pt and aware of tramadol being called into pharmacy. Verbalized understanding.
[2018-12-12] MEDS ORDERED: NON FORMULARY ITEM (Budesonide/Formoterol Fumarate (Symbicort 160-4.5 Mcg Inhaler) 2 PUFF) IH SCH (21:00)
--- NOTE | 2018-12-13 07:02 | CONS ---
DATE OF CONSULTATION: 12/12/2018 ATTENDING PHYSICIAN: Dr. Goode. The patient was seen at the request of Dr. Goode for rehab evaluation. HISTORY OF PRESENT ILLNESS: This is a 53-year-old female, right handed patient with chronic lower back pain, has been taking tramadol for pain given by her family physician at [facility]. The patient admits increased lower back pain and also pain in her neck and mid back since she fell about 3 days ago. She admits radiation of pain to her left lower extremity with associated tingling and numbness sensation. PAST MEDICAL HISTORY: Includes lumbar spine surgery and also surgery on her left arm, also with known hypertension, hyperlipidemia, asthmatic bronchitis, chronic obstructive pulmonary disease, gastritis, depression. FAMILY HISTORY: Obesity and hypertension. She lives with her family. The patient had radiological studies, which revealed degenerative changes in the cervical, thoracic and lumbar level with some degree of thoracic kyphotic deformity with convexity to the left. The patient denies any trouble with her bowel or bladder control. She apparently had a back brace at home. PHYSICAL EXAMINATION: Today revealed a middle-aged female. She is alert, oriented to time, place, person and circumstance and follows commands appropriately, moves all 4 extremities voluntarily where she had 4+/5 grade muscle strength and deep tendon reflexes are brisk bilaterally. She had painful limited movements of her lumbar spine with tenderness to palpation over lumbar paraspinal muscles extending over to sacroiliac joint area, mainly on the left side and also over left trochanteric bursa. Straight leg raising test is negative bilaterally. She had pain free range of motion on both hip, knee and ankle joints. She is independent with bed mobility and transfers. While up, she limps on her left foot to some extent. Her skin is intact at this time. No obvious lumbar paraspinal muscle spasm was noted at this time. She had no significant tenderness to palpation over cervical or thoracic spine area. ASSESSMENT: A middle-aged female with chronic lower back pain from degenerative disk disease and degenerative joint disease of lumbar vertebrae with recent exacerbation after a fall about 3 days ago with left lumbar radiculitis. No clinical evidence of ongoing lumbar radiculopathy. The patient with known obesity, asthmatic bronchitis, chronic obstructive pulmonary disease, hypertension, hyperlipidemia, gastritis, depression. RECOMMENDATIONS: At her request, I have injected painful left sacroiliac joint area and left trochanteric bursa under aseptic skin technique after skin preparation using alcohol swab and she tolerated the procedure satisfactorily without any side effects. I have reviewed with her a home program of physical modalities, trigger point massage and relax stretching exercise to her back and also proper body mechanics. She was advised to use a cane while up walking if the pain makes her limp. Hopefully, home with outpatient followup when medically stable. Dr. Goode, I appreciate asking me to participate in the care of this interesting patient. I will be glad to follow her with you as needed for her rehabilitation. TITA HEARD MD DR: CHENTE/liliya JOB#: [id number] / [id number]
== END 2018-12-12 19:15 | disposition home or self-care (01) | DRG 552 ==
LOC: ER 15:04 → 6 SOUTH 19:04
PROVIDERS: ADMIT Family Medicine; ATTEND Family Medicine
PROC: 3E0U33Z Introduction of Anti-inflammatory into Joints, Percutaneous Approach (ICD-10-PCS; principal; 2018-12-11)
PROC: 3E0U3BZ Introduction of Anesthetic Agent into Joints, Percutaneous Approach (ICD-10-PCS; 2018-12-11)
DX: M47.816 Spondylosis without myelopathy or radiculopathy, lumbar region (principal); F11.20 Opioid dependence, uncomplicated; E66.9 Obesity, unspecified; S16.1XXA Strain of muscle, fascia and tendon at neck level, initial encounter; G89.29 Other chronic pain; S30.0XXA Contusion of lower back and pelvis, initial encounter; I10 Essential (primary) hypertension; E78.5 Hyperlipidemia, unspecified; J44.9 Chronic obstructive pulmonary disease, unspecified; F32.9 Major depressive disorder, single episode, unspecified; F17.210 Nicotine dependence, cigarettes, uncomplicated; M19.90 Unspecified osteoarthritis, unspecified site; F41.9 Anxiety disorder, unspecified; M54.16 Radiculopathy, lumbar region; Z88.8 Allergy status to other drugs, medicaments and biological substances; Z78.0 Asymptomatic menopausal state; Z82.49 Family history of ischemic heart disease and other diseases of the circulatory system; Z68.39 Body mass index [BMI] 39.0-39.9, adult; R07.89 Other chest pain
CPT/HCPCS: 36415; 71045; 72040; 72072; 72100; 80048; 80053; 80061; 80307; 81001; 82553; 83735; 83880; 84443; 84484; 85025; 93005; 93306; 94640; 94760; J3010; J7512; J7613; 99285-25

== ENCOUNTER 2019-01-29 11:44 | Inpatient (IN) | payer OTHER ==
[~2019-01-29] VITALS: Ht 165.1 cm; Wt 127.0 kg
[~2019-01-29 11:44] MED LIST changes: +ASPI-630 PO
[2019-01-29] MEDS ORDERED: VANCOMYCIN PER PHARMACY MC ONE (12:00)
[2019-01-29] MEDS ORDERED: PIPERACILLIN/TAZOBACTAM 4.5 GM in IV NORMAL SALINE 100ML 100 ML IV ONE (12:00)
[2019-01-29] MEDS ORDERED: fentaNYL PF VIAL 100 MCG/2 ML VIAL IV ONE (12:15)
[2019-01-29] MEDS ORDERED: VANCOMYCIN 2 GM in IV NORMAL SALINE 500ML BAG 500 ML IV ONE ×2 (12:15→20:00)
--- NOTE | 2019-01-29 12:24 | EKG ---
[facility] [address] [place] [address] Test Date: 2019-01-29 Test Time: 12:12:50 Pat Name: JACKY GLASER Department: Room: 444 1 Gender: F [employer]: : 1965 Requested By: MEMO NELSON Order Number: [id number] Reading MD: Jose M Red MD Measurements Intervals [place] Rate: 85 P: 31 HI: 172 QRS: 37 QRSD: 82 T: 30 QT: 352 QTc: 424 Interpretive Statements SINUS RHYTHM Electronically Signed On 02-03-2019 14:49:19 CDT by Jose M Red MD
[2019-01-29 12:28] LABS: BASO % 1 % (0-3); EOS # 0.3 x10^3/uL (0.0-0.7); EOS % 5 % (0-3); HEMATOCRIT 30.3 % (36.0-47.0); HEMOGLOBIN 9.8 g/dL (12.0-15.5); LYMPH # 1.6 x10^3/uL (1.0-4.8); LYMPH % 21 % (24-48); MEAN CORPUSCULAR HEMOGLOBIN 28 pg (25-35); MEAN CORPUSCULAR HGB CONC 32 g/dL (31-37); MEAN CORPUSCULAR VOLUME 86 fL (79-100); MONO # 0.9 x10^3/uL (0.0-1.1); MONO % 12 % (0-9); NEUT # 4.7 x10^3uL (1.8-7.7); NEUT % 62 % (31-73); PLATELET COUNT 395 x10^3/uL (140-400); RED BLOOD COUNT 3.51 x10^6/uL (3.50-5.40); RED CELL DISTRIBUTION WIDTH 16.6 % (11.5-14.5); WHITE BLOOD COUNT 7.6 x10^3/uL (4.0-11.0)
[2019-01-29 12:34] LABS: CALCIUM 9.1 mg/dL (8.5-10.1); CREATININE 1.3 mg/dL (0.6-1.0); GFR 42.8; POTASSIUM 3.9 mmol/L (3.5-5.1)
[2019-01-29 12:38] LABS: PROTHROMBIN TIME PATIENT 13.2 SEC (11.7-14.0)
[2019-01-29 12:41] LABS: ALBUMIN 3.2 g/dL (3.4-5.0); ALBUMIN/GLOBULIN RATIO 0.8 (1.0-1.7); MAGNESIUM 1.9 mg/dL (1.8-2.4); TOTAL BILIRUBIN 0.4 mg/dL (0.2-1.0)
--- NOTE | 2019-01-29 12:51 | RAD ---
Bilateral Lower Extremity Venous Doppler Ultrasound History: Swelling and redness Comparison: None Procedure: Color flow, duplex, spectral analysis and 2D images are obtained with and without compression in the area of the common femoral vein, superficial femoral vein - femoral vein junction, main femoral vein (superficial femoral vein) and popliteal vein. Veins of the proximal calf are also imaged. Findings: There is normal duplex flow, color flow and compressibility of all visualized vein segments. No evidence of deep venous thrombus is present. There is diffuse soft tissue edema bilaterally. The peroneal veins are not well visualized due to edema. Impression: No evidence of DVT. Electronically signed by: Dale Zelaya III, MD (01/29/2019 12:48 PM) [id number]
--- NOTE | 2019-01-29 12:59 | PHYS DOC ---
Past Medical History Past Medical History: COPD, Depression, GERD, High Cholesterol, Pneumonia, Sciatica, Other Additional Past Medical Histor: chronic pain, CELLULITIS Past Surgical History: Other Additional Past Surgical Histo: back, left arm Additional Information: 1/2 ppd Alcohol Use: None Drug Use: None Adult General Chief Complaint Chief Complaint: LOWER EXTREMITY SWELLING HPI HPI Patient is a 53 year old female who presents with swelling and redness to bilateral lower extremity for one week. Patient is also complaining of chronic bilateral low back pain radiating to bilateral lower extremities, denies any injury. Denies any loss of bowel bladder function. Denies any numbness or tingling to bilateral lower extremities. Review of Systems Review of Systems Constitutional: Denies fever or chills [] Eyes: Denies change in visual acuity, redness, or eye pain [] HENT: Denies nasal congestion or sore throat [] Respiratory: Denies cough or shortness of breath [] Cardiovascular: No additional information not addressed in HPI [] GI: Denies abdominal pain, nausea, vomiting, bloody stools or diarrhea [] : Denies dysuria or hematuria [] Musculoskeletal: Reports chronic low back pain. Integument: Reports bilateral lower extremity swelling and redness. Neurologic: Denies headache, focal weakness or sensory changes [] All other systems were reviewed and found to be within normal limits, except as documented in this note. Current Medications Current Medications Current Medications Medications (Trade) Dose Ordered Sig/Jayy Start Time Stop Time Status Last Admin Dose Admin Acetaminophen (Tylenol) 650 mg PRN Q4HRS PRN 01/29/19 13:00 Albuterol Sulfate (Ventolin Neb Soln) 2.5 mg PRN Q6HRS PRN 01/29/19 13:00 Aspirin (Children'S Aspirin) 81 mg DAILY 01/30/19 09:00 UNV Clonazepam (KlonoPIN) 1 mg DAILY 01/30/19 09:00 UNV Cyclobenzaprine HCl (Flexeril) 10 mg PRN TID PRN 01/29/19 13:00 UNV Duloxetine HCl (Cymbalta) 30 mg BID 01/29/19 21:00 UNV Fentanyl Citrate (Fentanyl 2ml Vial) 50 mcg 1X ONCE 01/29/19 12:15 01/29/19 12:16 DC 01/29/19 12:31 50 MCG Gabapentin (Neurontin) 300 mg TID 01/29/19 14:00 UNV Morphine Sulfate (Morphine Sulfate) 4 mg PRN Q2HR PRN 01/29/19 13:00 01/30/19 12:59 Non-Formulary Medication (Albuterol Sulfate (Proair Respiclick)) 1 puff DAILY PRN 01/29/19 13:00 UNV Non-Formulary Medication (Albuterol Sulfate (Ventolin Hfa Inhaler)) 2 puff Q4HRS 01/29/19 16:00 UNV Non-Formulary Medication (Benzonatate (Tessalon Perle)) 1 cap TID 01/29/19 14:00 UNV Non-Formulary Medication (Budesonide/ Formoterol Fumarate (Symbicort 160-4.5 Mcg Inhaler)) 2 puff BID 01/29/19 21:00 UNV Non-Formulary Medication (Methylprednisolone (Medrol)) 1 pkg UD 01/29/19 13:00 UNV Non-Formulary Medication (Omeprazole ) 1 cap BID 01/29/19 21:00 UNV Ondansetron HCl (Zofran) 4 mg PRN Q8HRS PRN 01/29/19 13:00 01/30/19 12:59 Piperacillin Sod/ Tazobactam Sod 4.5 gm/Sodium Chloride 100 ml @ 200 mls/hr 1X ONCE 01/29/19 12:00 01/29/19 12:29 DC 01/29/19 12:32 200 MLS/HR Sodium Chloride 1,000 ml @ 125 mls/hr 1X ONCE 01/29/19 13:15 01/29/19 21:14 UNV Tramadol HCl (Ultram) 50 mg Q8HRS PRN 01/29/19 13:00 UNV Vancomycin HCl (Vanco Per Pharmacy) 1 each 1X ONCE 01/29/19 12:00 01/29/19 12:03 DC Vancomycin HCl 2 gm/Sodium Chloride 500 ml @ 250 mls/hr 1X ONCE 01/29/19 12:15 01/29/19 14:14 01/29/19 13:02 250 MLS/HR Allergies Allergies Allergies Coded Allergies Type Severity Reaction Last Updated Verified ibuprofen Allergy Intermediate rash, TOLERATES KETOROLAC 04/08/18 Yes naproxen Allergy Intermediate rash, TOLERATES KETOROLAC 04/08/18 Yes Physical Exam Physical Exam Constitutional: Well developed, well nourished, no acute distress, non-toxic appearance. [] HENT: Normocephalic, atraumatic, bilateral external ears normal, oropharynx moist, no oral exudates, nose normal. [] Eyes: PERRLA, EOMI, conjunctiva normal, no discharge. [] Neck: Normal range of motion, no tenderness, supple, no stridor. [] Cardiovascular:Heart rate regular rhythm, no murmur [] Lungs & Thorax: Bilateral breath sounds clear to auscultation [] Abdomen: Bowel sounds normal, soft, no tenderness, no masses, no pulsatile masses. [] Skin: Warm, dry, no erythema, no rash. [] Back: Diffuse paraspinal muscle tenderness bilateral low lumbar spine, no midline lumbar spine tenderness, no CVA tenderness. [] Extremities: +3 pitting edema to bilateral lower extremities with moderate cellulitis especially on the lower aspect of bilateral lower extremity, around the chin and on the way to the medial thighs. Full range of motion bilateral lower extremities. Negative Homans sign bilaterally. +2 bilateral pedal pulses. Cap refill less than 2 seconds bilateral lower extremities. Neurologic: Alert and oriented X 3, normal motor function, normal sensory function, no focal deficits noted. [] Psychologic: Affect normal, judgement normal, mood normal. [] Current Patient Data Vital Signs Vital Signs Date Time Temp Pulse Resp B/P (MAP) Pulse Ox O2 Delivery O2 Flow Rate FiO2 01/29/19 12:30 86 16 61/86 (78) 92 Room Air 01/29/19 11:53 99.2 99.2 Lab Values Laboratory Tests Test 01/29/19 12:05 White Blood Count 7.6 x10^3/uL (4.0-11.0) Red Blood Count 3.51 x10^6/uL (3.50-5.40) Hemoglobin 9.8 g/dL (12.0-15.5) L Hematocrit 30.3 % (36.0-47.0) L Mean Corpuscular Volume 86 fL (79-100) Mean Corpuscular Hemoglobin 28 pg (25-35) Mean Corpuscular Hemoglobin Concent 32 g/dL (31-37) Red Cell Distribution Width 16.6 % (11.5-14.5) H Platelet Count 395 x10^3/uL (140-400) Neutrophils (%) (Auto) 62 % (31-73) Lymphocytes (%) (Auto) 21 % (24-48) L Monocytes (%) (Auto) 12 % (0-9) H Eosinophils (%) (Auto) 5 % (0-3) H Basophils (%) (Auto) 1 % (0-3) Neutrophils # (Auto) 4.7 x10^3uL (1.8-7.7) Lymphocytes # (Auto) 1.6 x10^3/uL (1.0-4.8) Monocytes # (Auto) 0.9 x10^3/uL (0.0-1.1) Eosinophils # (Auto) 0.3 x10^3/uL (0.0-0.7) Basophils # (Auto) 0.0 x10^3/uL (0.0-0.2) Prothrombin Time 13.2 SEC (11.7-14.0) Prothrombin Time INR 1.0 (0.8-1.1) PTT 30 SEC (24-38) Sodium Level 131 mmol/L (136-145) L Potassium Level 3.9 mmol/L (3.5-5.1) Chloride Level 94 mmol/L (98-107) L Carbon Dioxide Level 29 mmol/L (21-32) Anion Gap 8 (6-14) Blood Urea Nitrogen 13 mg/dL (7-20) Creatinine 1.3 mg/dL (0.6-1.0) H Estimated GFR (Cockcroft-Gault) 42.8 BUN/Creatinine Ratio 10 (6-20) Glucose Level 119 mg/dL (70-99) H Lactic Acid Level 3.6 mmol/L (0.4-2.0) H Calcium Level 9.1 mg/dL (8.5-10.1) Magnesium Level 1.9 mg/dL (1.8-2.4) Total Bilirubin 0.4 mg/dL (0.2-1.0) Aspartate Amino Transferase (AST) 95 U/L (15-37) H Alanine Aminotransferase (ALT) 68 U/L (14-59) H Alkaline Phosphatase 104 U/L (46-116) Creatine Kinase 4084 U/L (26-192) H Creatine Kinase MB (Mass) 34.1 ng/mL (0.0-3.6) H Creatine Kinase MB Relative Index 0.8 % (0-4) Troponin I Quantitative < 0.017 ng/mL (0.000-0.055) JK-Adf-D-Type Natriuretic Peptide 196 pg/mL (0-124) H Total Protein 7.0 g/dL (6.4-8.2) Albumin 3.2 g/dL (3.4-5.0) L Albumin/Globulin Ratio 0.8 (1.0-1.7) L Laboratory Tests 01/29/19 12:05 Laboratory Tests 01/29/19 12:05 EKG EKG 12:[address] Jones sinus rhythm HR 85 no STEMI[] Radiology/Procedures Radiology/Procedures [] Course & Med Decision Making Course & Med Decision Making Pertinent Labs and Imaging studies reviewed. (See chart for details) This is a 53-year-old female patient presenting to the ED today with bilateral lower extremity swelling, redness, a shunt has significant cellulitis from her toes all the way to her thighs. Vitals on arrival to the ED temperature 99.2 heart rate 99 O2 sats 94% on room air blood pressure 119/72 respiration 24 and room air. Patient was started on the sepsis protocol, initially held back on the fluid considering the feeding edema she has an bilateral lower extremity awaiting BNP as well as lactic. Patient was started on IV antibiotics including Zosyn and vancomycin. CBC with a normal WBC. CMP with sodium of 131, creatinine 1.3 BUN 13, lactic at 3.6, CK 4084, 2 L of IV fluids were ordered right away. Also IV fluids ordered for admission. Spoke with Dr. Serrano who accepted patient for admission. He requested consult for wound nurse which was done in the Ed. Dragon Disclaimer Dragon Disclaimer This electronic medical record was generated, in whole or in part, using a voice recognition dictation system. Departure Departure Impression: Primary Impression: Cellulitis of both lower extremities Additional Impressions: Chronic low back pain Lactic acidosis Rhabdomyolysis Disposition: ADMITTED INPATIENT Condition: STABLE Referrals: NO PCP (PCP) Problem Qualifiers Additional Impressions: Chronic low back pain Back pain laterality: bilateral Sciatica presence: with sciatica Sciatica laterality: bilateral sciatica Qualified Codes: M54.42 - Lumbago with sciatica, left side; M54.41 - Lumbago with sciatica, right side; G89.29 - Other chronic pain Rhabdomyolysis Rhabdomyolysis type: non-traumatic Qualified Codes: M62.82 - Rhabdomyolysis MEMO NELSON APRN Jan 29, 2019 12:59
[2019-01-29] MEDS ORDERED: NON FORMULARY ITEM (Albuterol Sulfate (Proair Respiclick) 1 PUFF) IH PRN (13:00)
[2019-01-29] MEDS ORDERED: ALBUTEROL SULFATE 2.5 MG/3 ML NEBU. INH PRN (13:00)
[2019-01-29] MEDS ORDERED: NON FORMULARY ITEM (Methylprednisolone (Medrol) 1 PKG) PO SCH (13:00)
[2019-01-29] MEDS ORDERED: traMADol 50 MG TABLET PO PRN (13:00)
[2019-01-29] MEDS ORDERED: ACETAMINOPHEN 325 MG TABLET. PO PRN (13:00)
[2019-01-29] MEDS ORDERED: ONDANSETRON PF 4 MG/2 ML VIAL. IV PRN (13:00)
[2019-01-29] MEDS ORDERED: IV NORMAL SALINE 1000ML BAG 1,000 ML IV ONE ×3 (13:15)
[2019-01-29] MEDS: MORPHINE SULFATE 4 MG/ML VIAL. IV PRN ×4 (13:31→22:17)
[2019-01-29 14:00] VITALS: BP 135/83
[2019-01-29] MEDS: ASPIRIN CHEWABLE 81 MG TABLET. PO SCH (14:00)
[2019-01-29] MEDS: clonazePAM 1 MG TABLET PO SCH (14:00)
[2019-01-29] MEDS: GABAPENTIN 300 MG CAPSULE. PO SCH ×2 (14:00→20:05)
[2019-01-29] MEDS: PANTOPRAZOLE 40 MG TABLET.DR. PO SCH (14:33)
[2019-01-29] MEDS: BENZONATATE 100 MG CAPSULE. PO SCH ×2 (14:34→20:04)
--- NOTE | 2019-01-29 14:53 | NUR ---
Pt arrived from ER at 1400. Pt rated pain 10/10. Legs are red, swollen, edema +3. Senait WEST. Will continue to monitor.
[2019-01-29] MEDS: ALBUTEROL SULFATE 2.5 MG/3 ML NEBU. NEB SCH ×2 (15:06→20:06)
--- NOTE | 2019-01-29 15:44 | HP ---
ADMIT DATE: 01/29/2019 CHIEF COMPLAINT: Lower extremity swelling and pain and erythema. HISTORY OF PRESENT ILLNESS: The patient is a pleasant middle-aged white female well known to our service. Once again, she presents with lower extremity cellulitis. She has associated pain, rated 10/10. It is pretty impressive to see both legs are quite red and swollen. There is some drainage. She states it is worse with moving, in fact she has been sitting in bed for quite some time. Her CPK levels is up to 4084, but her troponin is 0. So I suspect she has some mild rhabdomyolysis on top of the cellulitis. Her transaminases are also, AST of 95 and ALT of 68. She is a little hyponatremic with a sodium of 131. I discussed the case with ER physician. We are going to admit the patient and give her IV antibiotics and I am going to be holding her statin as I suspect this might be causing the transaminase. PAST MEDICAL HISTORY: Previous chronic cellulitis, edema, hyperlipidemia, arthritis, chronic pain, anxiety, depression, neuropathy, chronic cough, asthma, GERD, muscle spasms. ALLERGIES: None. FAMILY HISTORY: Asthma. SOCIAL HISTORY: I do not think she smokes. She does not drink or take drugs. She is . MEDICATIONS: Reviewed. She is on albuterol, cyclobenzaprine, Zocor, Medrol, Ultram, Tylenol, clonazepam, gabapentin, Cymbalta, Tessalon, Symbicort and Prilosec. REVIEW OF SYSTEMS: GENERAL: No history of weight change, weakness or fevers. SKIN: No bruising, hair changes or rashes. EYES: No blurred, double or loss of vision. NOSE AND THROAT: No history of nosebleeds, hoarseness or sore throat. HEART: No history of palpitations, chest pain or shortness of breath on exertion. LUNGS: Denies cough, hemoptysis, wheezing or shortness of breath. GASTROINTESTINAL: Denies changes in appetite, nausea, vomiting, diarrhea or constipation. GENITOURINARY: No history of frequency, urgency, hesitancy or nocturia. NEUROLOGIC: Denies history of numbness, tingling, tremor or weakness. PSYCHIATRIC: No history of panic, anxiety or depression. ENDOCRINE: No history of heat or cold intolerance, polyuria or polydipsia. EXTREMITIES: She complains of lower extremity pain, swelling and erythema. PHYSICAL EXAMINATION: VITAL SIGNS: Temperature 99, pulse 82, respirations 18, blood pressure 144/91. GENERAL: She is alert, cooperative, complaining of severe pain in the ER, her ER nurse is here. Her just arrived as well. HEART: Normal S1, S2. LUNGS: Diminished, but mostly clear today. ABDOMEN: Soft, little distended. EXTREMITIES: She has impressive lower extremity cellulitis bilaterally. Both legs are also swollen. There is erythema, very painful to touch. ENDOCRINE: No thyromegaly. LYMPHATICS: No cervical nodes. HEMATOPOIETIC: No bruising. PSYCHIATRIC: She is depressed. LABORATORY AND DIAGNOSTIC DATA: White count is 7, hemoglobin 9.8, platelets 395. Electrolytes: Sodium 131, potassium 3.9, chloride 94, bicarb 24, BUN 13, creatinine 1.3, glucose 119, AST 95, ALT 68, CPK 4084. Troponin is 0. ASSESSMENT AND PLAN: Severe cellulitis with edema and transaminitis and hyponatremia. The patient is being admitted. We will give her IV normal saline, IV Zosyn, IV vanco. Frequent labs. I will try to resume her home meds, but I am going to stop the Zocor as I suspect that is causing her transaminitis. Full code. DVT prophylaxis: PT, OT. Prognosis guarded. LUCIO ANDINO DO DR: PAO/liliya JOB#: [id number] / [id number]
--- NOTE | 2019-01-29 18:19 | RAD ---
PORTABLE CHEST 1V Clinical Indication: PT HAVING LOWER EXTREMITY SWELLING AND REDNESS Comparison: AP chest 12/11/2018. Findings: Low lung volumes crowd vascular markings. The cardiomediastinal silhouette is normal. Stable elevation of right hemidiaphragm. Lungs are clear. There is no pneumothorax. No pleural effusion is appreciated. No acute bone abnormality. IMPRESSION: No acute cardiopulmonary process. Electronically signed by: Brendan Rosenthal MD (01/29/2019 6:16 PM) [facility]
[2019-01-29 19:35] VITALS: BP 132/82
[2019-01-29] MEDS ORDERED: VANCOMYCIN PER PHARMACY MC PRN (19:45)
[2019-01-29] MEDS ORDERED: PIP/TAZO PER PHARMACY MC PRN (19:45)
[2019-01-29] MEDS: DULoxetine HCL 30 MG CAPSULE.DR PO SCH (20:05)
[2019-01-29] MEDS: traMADol 50 MG TABLET PO PRN (20:05)
[2019-01-29] MEDS: BUDESONIDE 0.5 MG/2 ML NEBU. NEB SCH (20:06)
--- NOTE | 2019-01-29 20:22 | NUR ---
Pharmacy Vancomycin Dosing Note S: Consulted to monitor and dose vancomycin started 01/29/19. O: JACKY GLASER is a 53 year old F with Cellulitis, . Other Antibiotics: ZOSYN LABS: Last BUN: 13 Last Creatinine: 1.3 Creatinine Clearance: 61 mL/min Last WBC: 7.6 Last Procalcitonin: Tmax (past 24 hours): Microbiology: I/O: Drug Levels: Last level: on at Last dose given at Vancomycin Dosing: Dosing Weight: Actual Target Trough: 10-20 A: Based on: HT, WT, RENAL FX P: 1. Begin Vancomycin 1750 mg IV q24h 2. Follow up Trough level on 01/31/19 at 1930 3. Pharmacy will continue to monitor, follow and adjust therapy as needed. RICA RESTREPO, [facility], 01/29/192021
[2019-01-29] MEDS: PIPERACILLIN/TAZOBACTAM 3.375 GM in IV NORMAL SALINE 50ML 50 ML IV SCH (23:19)
[2019-01-29 23:53] VITALS: BP 118/57
[2019-01-30 03:24] VITALS: BP 116/62
[2019-01-30] MEDS: ALBUTEROL SULFATE 2.5 MG/3 ML NEBU. NEB SCH ×6 (04:00→21:09)
[2019-01-30] MEDS: MORPHINE SULFATE 4 MG/ML VIAL. IV PRN (04:16)
[2019-01-30] MEDS: PIPERACILLIN/TAZOBACTAM 3.375 GM in IV NORMAL SALINE 50ML 50 ML IV SCH (05:24)
[2019-01-30] MEDS: PANTOPRAZOLE 40 MG TABLET.DR. PO SCH (05:24)
[2019-01-30] MEDS: traMADol 50 MG TABLET PO PRN (06:46)
[2019-01-30 07:00] VITALS: BP 94/60
[2019-01-30 07:00] LABS: BASO % 1 % (0-3); EOS # 0.3 x10^3/uL (0.0-0.7); EOS % 4 % (0-3); HEMATOCRIT 26.7 % (36.0-47.0); HEMOGLOBIN 8.5 g/dL (12.0-15.5); LYMPH # 1.2 x10^3/uL (1.0-4.8); LYMPH % 20 % (24-48); MEAN CORPUSCULAR HEMOGLOBIN 28 pg (25-35); MEAN CORPUSCULAR HGB CONC 32 g/dL (31-37); MEAN CORPUSCULAR VOLUME 86 fL (79-100); MONO # 0.7 x10^3/uL (0.0-1.1); MONO % 11 % (0-9); NEUT % 64 % (31-73); PLATELET COUNT 355 x10^3/uL (140-400); RED CELL DISTRIBUTION WIDTH 16.8 % (11.5-14.5); WHITE BLOOD COUNT 6.2 x10^3/uL (4.0-11.0)
[2019-01-30 07:16] LABS: CREATININE 0.7 mg/dL (0.6-1.0); GFR 87.5; POTASSIUM 3.8 mmol/L (3.5-5.1)
[2019-01-30] MEDS: BUDESONIDE 0.5 MG/2 ML NEBU. NEB SCH ×2 (08:05→21:09)
[2019-01-30] MEDS: GABAPENTIN 300 MG CAPSULE. PO SCH ×3 (08:33→21:51)
[2019-01-30] MEDS: clonazePAM 1 MG TABLET PO SCH (08:33)
[2019-01-30] MEDS: ASPIRIN CHEWABLE 81 MG TABLET. PO SCH (08:33)
[2019-01-30] MEDS: DULoxetine HCL 30 MG CAPSULE.DR PO SCH ×2 (08:34→21:51)
[2019-01-30] MEDS: fentaNYL PF VIAL 100 MCG/2 ML VIAL IV PRN ×3 (08:34→20:16)
[2019-01-30] MEDS: BENZONATATE 100 MG CAPSULE. PO SCH (08:34)
--- NOTE | 2019-01-30 09:19 | PDOC ---
Infectious Disease Note Vital Sign Vital Signs Vital Signs Date Time Temp Pulse Resp B/P (MAP) Pulse Ox O2 Delivery O2 Flow Rate FiO2 01/30/19 08:34 Room Air 01/30/19 08:05 92 01/30/19 07:00 98.2 95 18 94/60 (71) 98.2 01/29/19 13:00 93.0 Labs Lab Laboratory Tests Test 01/29/19 12:05 01/29/19 15:30 01/30/19 06:25 White Blood Count 7.6 x10^3/uL (4.0-11.0) 6.2 x10^3/uL (4.0-11.0) Red Blood Count 3.51 x10^6/uL (3.50-5.40) 3.10 x10^6/uL (3.50-5.40) Hemoglobin 9.8 g/dL (12.0-15.5) 8.5 g/dL (12.0-15.5) Hematocrit 30.3 % (36.0-47.0) 26.7 % (36.0-47.0) Mean Corpuscular Volume 86 fL (79-100) 86 fL (79-100) Mean Corpuscular Hemoglobin 28 pg (25-35) 28 pg (25-35) Mean Corpuscular Hemoglobin Concent 32 g/dL (31-37) 32 g/dL (31-37) Red Cell Distribution Width 16.6 % (11.5-14.5) 16.8 % (11.5-14.5) Platelet Count 395 x10^3/uL (140-400) 355 x10^3/uL (140-400) Neutrophils (%) (Auto) 62 % (31-73) 64 % (31-73) Lymphocytes (%) (Auto) 21 % (24-48) 20 % (24-48) Monocytes (%) (Auto) 12 % (0-9) 11 % (0-9) Eosinophils (%) (Auto) 5 % (0-3) 4 % (0-3) Basophils (%) (Auto) 1 % (0-3) 1 % (0-3) Neutrophils # (Auto) 4.7 x10^3uL (1.8-7.7) 4.0 x10^3uL (1.8-7.7) Lymphocytes # (Auto) 1.6 x10^3/uL (1.0-4.8) 1.2 x10^3/uL (1.0-4.8) Monocytes # (Auto) 0.9 x10^3/uL (0.0-1.1) 0.7 x10^3/uL (0.0-1.1) Eosinophils # (Auto) 0.3 x10^3/uL (0.0-0.7) 0.3 x10^3/uL (0.0-0.7) Basophils # (Auto) 0.0 x10^3/uL (0.0-0.2) 0.0 x10^3/uL (0.0-0.2) Prothrombin Time 13.2 SEC (11.7-14.0) Prothromb Time International Ratio 1.0 (0.8-1.1) Activated Partial Thromboplast Time 30 SEC (24-38) Sodium Level 131 mmol/L (136-145) 139 mmol/L (136-145) Potassium Level 3.9 mmol/L (3.5-5.1) 3.8 mmol/L (3.5-5.1) Chloride Level 94 mmol/L (98-107) 104 mmol/L (98-107) Carbon Dioxide Level 29 mmol/L (21-32) 30 mmol/L (21-32) Anion Gap 8 (6-14) 5 (6-14) Blood Urea Nitrogen 13 mg/dL (7-20) 7 mg/dL (7-20) Creatinine 1.3 mg/dL (0.6-1.0) 0.7 mg/dL (0.6-1.0) Estimated GFR (Cockcroft-Gault) 42.8 87.5 BUN/Creatinine Ratio 10 (6-20) Glucose Level 119 mg/dL (70-99) 110 mg/dL (70-99) Lactic Acid Level 3.6 mmol/L (0.4-2.0) 1.2 mmol/L (0.4-2.0) Calcium Level 9.1 mg/dL (8.5-10.1) 8.0 mg/dL (8.5-10.1) Magnesium Level 1.9 mg/dL (1.8-2.4) Total Bilirubin 0.4 mg/dL (0.2-1.0) Aspartate Amino Transf (AST/SGOT) 95 U/L (15-37) Alanine Aminotransferase (ALT/SGPT) 68 U/L (14-59) Alkaline Phosphatase 104 U/L (46-116) Creatine Kinase 4084 U/L (26-192) Creatine Kinase MB (Mass) 34.1 ng/mL (0.0-3.6) Creatine Kinase MB Relative Index 0.8 % (0-4) Troponin I Quantitative < 0.017 ng/mL (0.000-0.055) XF-Tmg-I-Type Natriuretic Peptide 196 pg/mL (0-124) Total Protein 7.0 g/dL (6.4-8.2) Albumin 3.2 g/dL (3.4-5.0) Albumin/Globulin Ratio 0.8 (1.0-1.7) Objective Assessment Paras LE Cellulitis Tinea ? Rhabdo Hypotension - improved Plan Plan of Care D/c Vanc/Zosyn/Tramadol Rocephin/Zyvox/Fluconazole F/u labs and cults Elevation Thank you # [phone] KAYY CAMPBELL MD Jan 30, 2019 09:19
[2019-01-30] MEDS ORDERED: BENZONATATE 100 MG CAPSULE. PO PRN (10:00)
--- NOTE | 2019-01-30 10:36 | HP ---
ADMIT DATE: 01/30/2019 The patient's room is 444. REQUESTING PHYSICIAN: Dr. Serrano. REASON FOR CONSULTATION: Lower extremity cellulitis. HISTORY OF PRESENT ILLNESS: The patient is a 53-year-old [place] woman with a history of previous cellulitis. Recently treated with cefazolin and cephalexin and was discharged home. She states for the past week or so, she developed lower extremity pain and erythema. She denies any trauma to the area. No bites or scratches, but the pain worsened. She developed fevers and chills and sweats, and she presented to [facility] Emergency Room on the . She was afebrile, temperature 99.2. Blood pressure did drop down to 61/86, but then normalized. She had a normal white blood cell count at the time of presentation. She had normal kidney functions; however, creatinine kinase was 4084. She was admitted to the hospital and placed on vancomycin and Zosyn. Chest x-ray did not have any acute pulmonary process. Lower extremity Dopplers were negative for DVT. Currently, she is lying in bed. She is comfortable. Denies any headache, sore throat, cough or chest pain. No nausea, vomiting, diarrhea. No dysuria, frequency or urgency. Denies any generalized rashes. PAST MEDICAL HISTORY: Positive for hyperlipidemia, obesity, history of previous lower extremity cellulitis as well as depression. REVIEW OF SYSTEMS: Otherwise negative. SOCIAL HISTORY: She does smoke 4 cigarettes a day. No alcohol. ALLERGIES: LISTED IBUPROFEN AND NAPROSYN. FAMILY HISTORY: Positive for hypertension, hypercholesterolemia. CURRENT MEDICATIONS: Include vancomycin, Zosyn, albuterol, aspirin, Tessalon Perles, Pulmicort, Klonopin, Flexeril, Cymbalta, fentanyl, Neurontin, Protonix. Other meds are available and reviewed in the chart. PHYSICAL EXAMINATION: CONSTITUTIONAL: She is lying in bed, she is cooperative. She is in no acute distress. HEENT: Pupils are equal and reactive. Oropharynx clear. NECK: Supple, no JVD. LUNGS: Clear to auscultation. HEART: S1, S2. ABDOMEN: Obese, soft, nontender, nondistended, no guarding or rebound. EXTREMITIES: Without clubbing, cyanosis. She has bilateral lower extremity 1-2+ edema with bilateral lower extremity erythema on her feet to just above her knees. SKIN: Warm to touch. She has tinea on both feet as well. NEUROLOGIC: She is nonfocal, moves all extremities. PSYCHIATRIC: Affect is pleasant. LABORATORY DATA: White count 6.2, hemoglobin 8.5, platelets of 355, neutrophils 64%, lymphs are 20. Creatinine this morning 0.7, glucose of 110. Radiology reviewed in the history of present illness. IMPRESSION: 1. Bilateral lower extremity cellulitis. 2. Tinea. 3. Rhabdo. 4. Hypotension, improved. RECOMMENDATIONS: Discontinue vancomycin and Zosyn, begin Rocephin, Zyvox, fluconazole. Discontinue the tramadol. Follow up on labs and cultures. Elevation of her lower extremities. Thank you for the opportunity to participate in the patient's care. If you have any questions, please do not hesitate to contact me. KAYY CAMPBELL MD DR: SORAYA/liliya JOB#: [id number] / [id number]
[2019-01-30] MEDS: cefTRIAXone IV Push 1 GM VIAL. IVP SCH (10:46)
[2019-01-30] MEDS: LINEZOLID 600 MG TABLET PO SCH ×2 (10:46→21:51)
[2019-01-30] MEDS: FLUCONAZOLE 100 MG TABLET. PO SCH (10:46)
[2019-01-30 11:00] VITALS: BP 110/59
--- NOTE | 2019-01-30 12:20 | PDOC ---
PROGRESS NOTES Chief Complaint Chief Complaint BLE cellulitis History of Present Illness History of Present Illness Patient resting comfortably with both legs elevated. She is happy to see the redness decreasing in her legs however she continues to have leg pain. Vitals Vitals Vital Signs Date Time Temp Pulse Resp B/P (MAP) Pulse Ox O2 Delivery O2 Flow Rate FiO2 01/30/19 11:15 97 Room Air 01/30/19 11:00 98.4 94 16 110/59 (76) 98.4 01/29/19 13:00 93.0 Physical Exam General: Alert, Oriented X3, Cooperative, No acute distress Heart: Regular rate, Normal S1, Normal S2, No murmurs Lungs: Clear Abdomen: Normal bowel sounds, Soft, No tenderness Extremities: Other (BLE erythma (improving), edema, no weeping) Skin: Other (see above) Labs LABS Laboratory Tests Test 01/29/19 15:30 01/30/19 06:25 Lactic Acid Level 1.2 mmol/L (0.4-2.0) White Blood Count 6.2 x10^3/uL (4.0-11.0) Red Blood Count 3.10 x10^6/uL (3.50-5.40) Hemoglobin 8.5 g/dL (12.0-15.5) Hematocrit 26.7 % (36.0-47.0) Mean Corpuscular Volume 86 fL (79-100) Mean Corpuscular Hemoglobin 28 pg (25-35) Mean Corpuscular Hemoglobin Concent 32 g/dL (31-37) Red Cell Distribution Width 16.8 % (11.5-14.5) Platelet Count 355 x10^3/uL (140-400) Neutrophils (%) (Auto) 64 % (31-73) Lymphocytes (%) (Auto) 20 % (24-48) Monocytes (%) (Auto) 11 % (0-9) Eosinophils (%) (Auto) 4 % (0-3) Basophils (%) (Auto) 1 % (0-3) Neutrophils # (Auto) 4.0 x10^3uL (1.8-7.7) Lymphocytes # (Auto) 1.2 x10^3/uL (1.0-4.8) Monocytes # (Auto) 0.7 x10^3/uL (0.0-1.1) Eosinophils # (Auto) 0.3 x10^3/uL (0.0-0.7) Basophils # (Auto) 0.0 x10^3/uL (0.0-0.2) Sodium Level 139 mmol/L (136-145) Potassium Level 3.8 mmol/L (3.5-5.1) Chloride Level 104 mmol/L (98-107) Carbon Dioxide Level 30 mmol/L (21-32) Anion Gap 5 (6-14) Blood Urea Nitrogen 7 mg/dL (7-20) Creatinine 0.7 mg/dL (0.6-1.0) Estimated GFR (Cockcroft-Gault) 87.5 Glucose Level 110 mg/dL (70-99) Calcium Level 8.0 mg/dL (8.5-10.1) Review of Systems Review of Systems BLE pain, no fever, improved swelling/redness of BLE Assessment and Plan Assessmemt and Plan Problems Medical Problems: (1) Cellulitis of both lower extremities Status: Acute (2) Chronic low back pain Status: Acute (3) Lactic acidosis Status: Acute (4) Rhabdomyolysis Status: Acute Assessment: Severe cellulitis, bilateral lower extremities - improving Lactic acidosis, improving Rhabdomyolysis Bilateral lower extremity edema Tinea Hyponatremia, resolved Transaminitis Hypotension, improved Obesity Plan: Antibiotics per ID - appreciate recs Discontinue Vanc and Zosyn Switch to Rocephin, Zyvox, fluconazole IV Fluids Recheck CK, CK 4084 on admission Monitor daily labs Doppler US BLE - no DVT Elevate legs Wound [facility] meds - hold Zocor with transaminitis DVT ppx PT/OT Comment Review of Relevant I have reviewed the following items mechelle (where applicable) has been applied. Labs Laboratory Tests Test 01/29/19 12:05 01/29/19 15:30 01/30/19 06:25 White Blood Count 7.6 x10^3/uL (4.0-11.0) 6.2 x10^3/uL (4.0-11.0) Red Blood Count 3.51 x10^6/uL (3.50-5.40) 3.10 x10^6/uL (3.50-5.40) Hemoglobin 9.8 g/dL (12.0-15.5) 8.5 g/dL (12.0-15.5) Hematocrit 30.3 % (36.0-47.0) 26.7 % (36.0-47.0) Mean Corpuscular Volume 86 fL (79-100) 86 fL (79-100) Mean Corpuscular Hemoglobin 28 pg (25-35) 28 pg (25-35) Mean Corpuscular Hemoglobin Concent 32 g/dL (31-37) 32 g/dL (31-37) Red Cell Distribution Width 16.6 % (11.5-14.5) 16.8 % (11.5-14.5) Platelet Count 395 x10^3/uL (140-400) 355 x10^3/uL (140-400) Neutrophils (%) (Auto) 62 % (31-73) 64 % (31-73) Lymphocytes (%) (Auto) 21 % (24-48) 20 % (24-48) Monocytes (%) (Auto) 12 % (0-9) 11 % (0-9) Eosinophils (%) (Auto) 5 % (0-3) 4 % (0-3) Basophils (%) (Auto) 1 % (0-3) 1 % (0-3) Neutrophils # (Auto) 4.7 x10^3uL (1.8-7.7) 4.0 x10^3uL (1.8-7.7) Lymphocytes # (Auto) 1.6 x10^3/uL (1.0-4.8) 1.2 x10^3/uL (1.0-4.8) Monocytes # (Auto) 0.9 x10^3/uL (0.0-1.1) 0.7 x10^3/uL (0.0-1.1) Eosinophils # (Auto) 0.3 x10^3/uL (0.0-0.7) 0.3 x10^3/uL (0.0-0.7) Basophils # (Auto) 0.0 x10^3/uL (0.0-0.2) 0.0 x10^3/uL (0.0-0.2) Prothrombin Time 13.2 SEC (11.7-14.0) Prothromb Time International Ratio 1.0 (0.8-1.1) Activated Partial Thromboplast Time 30 SEC (24-38) Sodium Level 131 mmol/L (136-145) 139 mmol/L (136-145) Potassium Level 3.9 mmol/L (3.5-5.1) 3.8 mmol/L (3.5-5.1) Chloride Level 94 mmol/L (98-107) 104 mmol/L (98-107) Carbon Dioxide Level 29 mmol/L (21-32) 30 mmol/L (21-32) Anion Gap 8 (6-14) 5 (6-14) Blood Urea Nitrogen 13 mg/dL (7-20) 7 mg/dL (7-20) Creatinine 1.3 mg/dL (0.6-1.0) 0.7 mg/dL (0.6-1.0) Estimated GFR (Cockcroft-Gault) 42.8 87.5 BUN/Creatinine Ratio 10 (6-20) Glucose Level 119 mg/dL (70-99) 110 mg/dL (70-99) Lactic Acid Level 3.6 mmol/L (0.4-2.0) 1.2 mmol/L (0.4-2.0) Calcium Level 9.1 mg/dL (8.5-10.1) 8.0 mg/dL (8.5-10.1) Magnesium Level 1.9 mg/dL (1.8-2.4) Total Bilirubin 0.4 mg/dL (0.2-1.0) Aspartate Amino Transf (AST/SGOT) 95 U/L (15-37) Alanine Aminotransferase (ALT/SGPT) 68 U/L (14-59) Alkaline Phosphatase 104 U/L (46-116) Creatine Kinase 4084 U/L (26-192) Creatine Kinase MB (Mass) 34.1 ng/mL (0.0-3.6) Creatine Kinase MB Relative Index 0.8 % (0-4) Troponin I Quantitative < 0.017 ng/mL (0.000-0.055) BL-Sds-F-Type Natriuretic Peptide 196 pg/mL (0-124) Total Protein 7.0 g/dL (6.4-8.2) Albumin 3.2 g/dL (3.4-5.0) Albumin/Globulin Ratio 0.8 (1.0-1.7) Laboratory Tests Test 01/29/19 15:30 4/22/19 06:25 Lactic Acid Level 1.2 mmol/L (0.4-2.0) White Blood Count 6.2 x10^3/uL (4.0-11.0) Red Blood Count 3.10 x10^6/uL (3.50-5.40) Hemoglobin 8.5 g/dL (12.0-15.5) Hematocrit 26.7 % (36.0-47.0) Mean Corpuscular Volume 86 fL (79-100) Mean Corpuscular Hemoglobin 28 pg (25-35) Mean Corpuscular Hemoglobin Concent 32 g/dL (31-37) Red Cell Distribution Width 16.8 % (11.5-14.5) Platelet Count 355 x10^3/uL (140-400) Neutrophils (%) (Auto) 64 % (31-73) Lymphocytes (%) (Auto) 20 % (24-48) Monocytes (%) (Auto) 11 % (0-9) Eosinophils (%) (Auto) 4 % (0-3) Basophils (%) (Auto) 1 % (0-3) Neutrophils # (Auto) 4.0 x10^3uL (1.8-7.7) Lymphocytes # (Auto) 1.2 x10^3/uL (1.0-4.8) Monocytes # (Auto) 0.7 x10^3/uL (0.0-1.1) Eosinophils # (Auto) 0.3 x10^3/uL (0.0-0.7) Basophils # (Auto) 0.0 x10^3/uL (0.0-0.2) Sodium Level 139 mmol/L (136-145) Potassium Level 3.8 mmol/L (3.5-5.1) Chloride Level 104 mmol/L (98-107) Carbon Dioxide Level 30 mmol/L (21-32) Anion Gap 5 (6-14) Blood Urea Nitrogen 7 mg/dL (7-20) Creatinine 0.7 mg/dL (0.6-1.0) Estimated GFR (Cockcroft-Gault) 87.5 Glucose Level 110 mg/dL (70-99) Calcium Level 8.0 mg/dL (8.5-10.1) Medications Current Medications Piperacillin Sod/ Tazobactam Sod 4.5 gm/Sodium Chloride 100 ml @ 200 mls/hr 1X ONCE IV Last administered on 01/29/19at 12:32; Start 01/29/19 at 12:00; Stop 01/29/19 at 12:29; Status DC Vancomycin HCl (Vanco Per Pharmacy) 1 each 1X ONCE MC ; Start 01/29/19 at 12:00; Stop 01/29/19 at 12:03; Status DC Vancomycin HCl 2 gm/Sodium Chloride 500 ml @ 250 mls/hr 1X ONCE IV Last administered on 01/29/19at 13:02; Start 01/29/19 at 12:15; Stop 01/29/19 at 14:14; Status DC Fentanyl Citrate (Fentanyl 2ml Vial) 50 mcg 1X ONCE IV Last administered on 01/29/19at 12:31; Start 01/29/19 at 12:15; Stop 01/29/19 at 12:16; Status DC Ondansetron HCl (Zofran) 4 mg PRN Q8HRS PRN IV NAUSEA/VOMITING; Start 01/29/19 at 13:00; Stop 01/30/19 at 12:59 Morphine Sulfate (Morphine Sulfate) 4 mg PRN Q2HR PRN IV PAIN Last administered on 01/30/19at 04:16; Start 01/29/19 at 13:00; Stop 01/31/19 at 12:58 Acetaminophen (Tylenol) 650 mg PRN Q4HRS PRN PO FEVER; Start 01/29/19 at 13:00 Albuterol Sulfate (Ventolin Neb Soln) 2.5 mg PRN Q6HRS PRN INH SHORTNESS OF BREATH; Start 01/29/19 at 13:00 Aspirin (Children'S Aspirin) 81 mg DAILY PO Last administered on 01/30/19at 08:33; Start 01/29/19 at 14:00 Clonazepam (KlonoPIN) 1 mg DAILY PO Last administered on 01/30/19at 08:33; Start 01/29/19 at 14:00 Cyclobenzaprine HCl (Flexeril) 10 mg PRN TID PRN PO MUSCLE SPASMS; Start 01/29/19 at 13:00 Duloxetine HCl (Cymbalta) 30 mg BID PO Last administered on 01/30/19at 08:34; Start 01/29/19 at 21:00 Gabapentin (Neurontin) 300 mg TID PO Last administered on 01/30/19at 08:33; Start 01/29/19 at 14:00 Tramadol HCl (Ultram) 50 mg PRN Q12HR PRN PO PAIN; Start 01/29/19 at 13:00; Status UNV Tramadol HCl (Ultram) 50 mg PRN Q8HRS PRN PO PAIN Last administered on 01/30/19at 06:46; Start 01/29/19 at 13:00; Stop 01/30/19 at 09:17; Status DC Non-Formulary Medication (Albuterol Sulfate (Proair Respiclick)) 1 puff DAILY PRN IH SHORTNESS OF BREATH; Start 01/29/19 at 13:00; Status UNV Albuterol Sulfate (Ventolin Neb Soln) 2.5 mg Q4HRS NEB Last administered on 01/30/19at 11:13; Start 01/29/19 at 16:00 Benzonatate (Tessalon Perle) 100 mg [id number] PO Last administered on 01/29/19at 20:04; Start 01/29/19 at 14:00; Stop 01/30/19 at 09:07; Status DC Budesonide (Pulmicort) 0.5 mg RTBID NEB Last administered on 01/30/19at 08:05; Start 01/29/19 at 20:00 Non-Formulary Medication (Methylprednisolone (Medrol)) 1 pkg UD PO ; Start 01/29/19 at 13:00; Status UNV Pantoprazole Sodium (Protonix) 40 mg DAILYAC PO Last administered on 01/30/19at 05:24; Start 01/29/19 at 14:00 Sodium Chloride 1,000 ml @ 1,000 mls/hr 1X ONCE IV Last administered on 01/29/19at 13:24; Start 01/29/19 at 13:15; Stop 01/29/19 at 14:14; Status DC Sodium Chloride 1,000 ml @ 1,000 mls/hr 1X ONCE IV ; Start 01/29/19 at 13:15; Stop 01/29/19 at 14:14; Status DC Sodium Chloride 1,000 ml @ 125 mls/hr 1X ONCE IV Last administered on 01/29/19at 17:58; Start 01/29/19 at 13:15; Stop 01/29/19 at 21:14; Status DC Fentanyl Citrate (Fentanyl 2ml Vial) 50 mcg PRN Q2HR PRN IV PAIN Last administered on 01/30/19at 08:34; Start 01/29/19 at 15:45 Vancomycin HCl (Vanco Per Pharmacy) 1 each PRN DAILY PRN MC SEE COMMENTS Last administered on 01/29/19at 20:22; Start 01/29/19 at 19:45; Stop 01/30/19 at 09:10; Status DC Piperacillin Sod/ Tazobactam Sod (Zosyn Per Pharmacy) 1 each PRN DAILY PRN MC SEE COMMENTS; Start 01/29/19 at 19:45; Stop 01/30/19 at 09:10; Status DC Vancomycin HCl 2 gm/Sodium Chloride 500 ml @ 250 mls/hr 1X ONCE IV Last administered on 01/29/19at 20:06; Start 01/29/19 at 20:00; Stop 01/29/19 at 21:59; Status DC Piperacillin Sod/ Tazobactam Sod 3.375 gm/Sodium Chloride 50 ml @ 100 mls/hr Q6HRS IV Last administered on 01/30/19at 05:24; Start 01/30/19 at 00:00; Stop 01/30/19 at 09:10; Status DC Vancomycin HCl (Vancomycin Trough Level) 1 each 1X ONCE MC ; Start 01/31/19 at 19:30; Stop 01/31/19 at 19:31; Status Cancel Vancomycin HCl 1.75 gm/Sodium Chloride 500 ml @ 250 mls/hr Q24H IV ; Start 01/30/19 at 20:00; Stop 01/30/19 at 20:00; Status DC Benzonatate (Tessalon Perle) 100 mg PRN TID PRN PO COUGH; Start 01/30/19 at 10:00 Ceftriaxone Sodium (Rocephin) 1 gm Q24H IVP Last administered on 01/30/19at 10:46; Start 01/30/19 at 10:00 Linezolid (Zyvox) 600 mg BID PO Last administered on 01/30/19at 10:46; Start 01/30/19 at 10:00 Fluconazole (Diflucan) 200 mg DAILY PO Last administered on 01/30/19at 10:46; Start 01/30/19 at 10:00 Active Scripts Active Tylenol (Acetaminophen) 325 Mg Tablet 650 Mg PO PRN Q4HRS PRN 14 Days Proair Hfa (Albuterol Sulfate) 8.5 Gm Hfa.aer.ad 1 Puff INH PRN Q6HRS PRN Medrol (Methylprednisolone) 4 Mg Tab.ds.pk 1 Pkg PO UD Ventolin Hfa Inhaler (Albuterol Sulfate) 18 Gm Hfa.aer.ad 2 Puff INH Q4HRS Tessalon Perle (Benzonatate) 100 Mg Capsule 1 Cap PO TID Tramadol Hcl 50 Mg Tablet 1 Tab PO PRN Q12HR PRN Reported Gabapentin (Gabapentin) 300 Mg Capsule 300 Mg PO TID Aspirin 81 Mg Tab.chew 1 Tab PO DAILY Tramadol Hcl 50 Mg Tablet 50 Mg PO Q8HRS PRN Clonazepam 1 Mg Tablet 1 Mg PO DAILY Symbicort 160-4.5 Mcg Inhaler (Budesonide/Formoterol Fumarate) 10.2 Gm Hfa.aer.ad 2 Puff IH BID Simvastatin 10 Mg Tablet 1 Tab PO QHS Omeprazole 20 Mg Capsule.dr 1 Cap PO BID Cyclobenzaprine Hcl 10 Mg Tablet 1 Tab PO PRN TID PRN Cymbalta (Duloxetine Hcl) 30 Mg Capsule.dr 30 Mg PO BID Proair Respiclick (Albuterol Sulfate) 90 Mcg Aer.pow.ba 1 Puff IH DAILY PRN Vitals/I & O Vital Sign - Last 24 Hours 01/29/19 01/29/19 01/29/19 01/29/19 12:30 13:00 13:30 14:00 Temp 99.2 99.2 Pulse 86 16 84 91 Resp 16 16 16 18 B/P (MAP) 61/86 (78) 77/88 (84) 119/78 (92) 135/83 (100) Pulse Ox 92 92 94 O2 Delivery Room Air Room Air Room Air Room Air O2 Flow Rate 93.0 01/29/19 01/29/19 01/29/19 01/29/19 15:00 15:09 15:27 19:35 Temp 98.5 98.5 Pulse 90 Resp 20 B/P (MAP) 132/82 (99) Pulse Ox 97 92 O2 Delivery Room Air Room Air Room Air Room Air 01/29/19 01/29/19 01/29/19 4/21/19 20:00 20:05 20:05 20:07 Resp 20 20 Pulse Ox 92 92 97 O2 Delivery Room Air Room Air Room Air Room Air 01/29/19 01/29/19 01/29/19 01/30/19 21:05 22:17 23:53 03:24 Temp 98.1 98.7 98.1 98.7 Pulse 98 96 Resp 17 B/P (MAP) 118/57 (77) 116/62 (80) Pulse Ox 97 97 93 90 O2 Delivery Room Air Room Air Room Air 01/30/19 01/30/19 01/30/19 01/30/19 04:16 04:20 04:46 06:46 Resp 20 Pulse Ox 90 97 97 97 O2 Delivery Room Air Room Air Room Air Room Air 01/30/19 01/30/19 01/30/19 01/30/19 07:00 07:45 08:05 08:34 Temp 98.2 98.2 Pulse 95 Resp 18 B/P (MAP) 94/60 (71) Pulse Ox 94 92 O2 Delivery Room Air Room Air Room Air Room Air 01/30/19 01/30/19 01/30/19 09:20 11:00 11:15 Temp 98.4 98.4 Pulse 94 Resp 16 B/P (MAP) 110/59 (76) Pulse Ox 92 97 O2 Delivery Room Air Room Air Room Air Intake and Output 01/29/19 01/29/19 01/30/19 14:59 22:59 06:59 Intake Total 240 ml 650 ml Balance 240 ml 650 ml LUCIO ANDINO III DO Jan 30, 2019 12:20
[2019-01-30] MEDS: oxyCODONE/APAP 5/325 1 TAB TABLET PO PRN ×2 (14:19→21:51)
[2019-01-30 15:00] VITALS: BP 132/64
[2019-01-30 19:00] VITALS: BP 102/58
[2019-01-30] MEDS ORDERED: VANCOMYCIN 1.75 GM in IV NORMAL SALINE 500ML BAG 500 ML IV SCH (20:00)
[2019-01-30] MEDS: CYCLOBENZAPRINE 10 MG TABLET. PO PRN (21:51)
[2019-01-30 23:00] VITALS: BP 101/52
[2019-01-31] MEDS: fentaNYL PF VIAL 100 MCG/2 ML VIAL IV PRN ×7 (01:49→22:34)
[2019-01-31 03:00] VITALS: BP 120/64
[2019-01-31] MEDS: ALBUTEROL SULFATE 2.5 MG/3 ML NEBU. NEB SCH ×6 (03:59→20:02)
[2019-01-31 05:13] LABS: BASO # 0.1 x10^3/uL (0.0-0.2); BASO % 1 % (0-3); EOS # 0.2 x10^3/uL (0.0-0.7); EOS % 4 % (0-3); HEMATOCRIT 27.6 % (36.0-47.0); HEMOGLOBIN 8.9 g/dL (12.0-15.5); LYMPH # 1.4 x10^3/uL (1.0-4.8); LYMPH % 25 % (24-48); MEAN CORPUSCULAR HEMOGLOBIN 28 pg (25-35); MEAN CORPUSCULAR HGB CONC 32 g/dL (31-37); MEAN CORPUSCULAR VOLUME 86 fL (79-100); MONO # 0.5 x10^3/uL (0.0-1.1); MONO % 9 % (0-9); NEUT # 3.6 x10^3uL (1.8-7.7); NEUT % 61 % (31-73); PLATELET COUNT 369 x10^3/uL (140-400); RED CELL DISTRIBUTION WIDTH 16.9 % (11.5-14.5); WHITE BLOOD COUNT 5.8 x10^3/uL (4.0-11.0)
[2019-01-31] MEDS: PANTOPRAZOLE 40 MG TABLET.DR. PO SCH (05:36)
[2019-01-31 05:40] LABS: CALCIUM 8.4 mg/dL (8.5-10.1); CREATININE 0.6 mg/dL (0.6-1.0); GFR 104.6; POTASSIUM 3.7 mmol/L (3.5-5.1)
[2019-01-31 07:00] VITALS: BP 134/59
[2019-01-31] MEDS: BUDESONIDE 0.5 MG/2 ML NEBU. NEB SCH ×2 (07:11→20:02)
--- NOTE | 2019-01-31 07:19 | PDOC ---
Infectious Disease Note Subjective Subjective Still some pain but less. No F/C/S/N/V/D/SOA - rash ROS ROS o/w neg Vital Sign Vital Signs Vital Signs Date Time Temp Pulse Resp B/P (MAP) Pulse Ox O2 Delivery O2 Flow Rate FiO2 01/31/19 07:11 92 Room Air 01/31/19 03:00 98.6 89 18 120/64 (82) 98.6 Physical Exam PHYSICAL EXAM CONSTITUTIONAL: She is lying in bed, she is cooperative. She is in no acute distress. HEENT: Pupils are equal and reactive. Oropharynx clear. NECK: Supple, no JVD. LUNGS: Clear to auscultation. HEART: S1, S2. ABDOMEN: Obese, soft, nontender, nondistended, no guarding or rebound. EXTREMITIES: Without clubbing, cyanosis. She has bilateral lower extremity 1-+ edema with less bilateral lower extremity erythema on her feet to just above her knees. Less warmth and tenderness SKIN: Warm to touch. She has tinea on both feet as well. NEUROLOGIC: She is nonfocal, moves all extremities. PSYCHIATRIC: Affect is pleasant. Labs Lab Laboratory Tests Test 01/31/19 04:30 White Blood Count 5.8 x10^3/uL (4.0-11.0) Red Blood Count 3.20 x10^6/uL (3.50-5.40) Hemoglobin 8.9 g/dL (12.0-15.5) Hematocrit 27.6 % (36.0-47.0) Mean Corpuscular Volume 86 fL (79-100) Mean Corpuscular Hemoglobin 28 pg (25-35) Mean Corpuscular Hemoglobin Concent 32 g/dL (31-37) Red Cell Distribution Width 16.9 % (11.5-14.5) Platelet Count 369 x10^3/uL (140-400) Neutrophils (%) (Auto) 61 % (31-73) Lymphocytes (%) (Auto) 25 % (24-48) Monocytes (%) (Auto) 9 % (0-9) Eosinophils (%) (Auto) 4 % (0-3) Basophils (%) (Auto) 1 % (0-3) Neutrophils # (Auto) 3.6 x10^3uL (1.8-7.7) Lymphocytes # (Auto) 1.4 x10^3/uL (1.0-4.8) Monocytes # (Auto) 0.5 x10^3/uL (0.0-1.1) Eosinophils # (Auto) 0.2 x10^3/uL (0.0-0.7) Basophils # (Auto) 0.1 x10^3/uL (0.0-0.2) Sodium Level 144 mmol/L (136-145) Potassium Level 3.7 mmol/L (3.5-5.1) Chloride Level 108 mmol/L (98-107) Carbon Dioxide Level 29 mmol/L (21-32) Anion Gap 7 (6-14) Blood Urea Nitrogen 6 mg/dL (7-20) Creatinine 0.6 mg/dL (0.6-1.0) Estimated GFR (Cockcroft-Gault) 104.6 Glucose Level 103 mg/dL (70-99) Calcium Level 8.4 mg/dL (8.5-10.1) Creatine Kinase 4208 U/L (26-192) Micro Microbiology 01/29/19 Blood Culture - Preliminary, Resulted NO GROWTH AFTER 1 DAY Objective Assessment Paras LE Cellulitis- cults neg - improving Tinea ? Rhabdo- CK slight improvement Hypotension - improved Plan Plan of Care BMP/CK in am Cont Rocephin/Zyvox/Fluconazole F/u labs and cults Elevation d/w nursing KAYY CAMPBELL MD Jan 31, 2019 07:19
[2019-01-31] MEDS: FLUCONAZOLE 100 MG TABLET. PO SCH (08:26)
[2019-01-31] MEDS: DULoxetine HCL 30 MG CAPSULE.DR PO SCH ×2 (08:26→20:54)
[2019-01-31] MEDS: LINEZOLID 600 MG TABLET PO SCH ×2 (08:26→20:54)
[2019-01-31] MEDS: GABAPENTIN 300 MG CAPSULE. PO SCH ×3 (08:27→20:54)
[2019-01-31] MEDS: ASPIRIN CHEWABLE 81 MG TABLET. PO SCH (08:27)
[2019-01-31] MEDS: clonazePAM 1 MG TABLET PO SCH (08:27)
[2019-01-31] MEDS: cefTRIAXone IV Push 1 GM VIAL. IVP SCH (10:58)
[2019-01-31 11:00] VITALS: BP 137/71
[2019-01-31] MEDS: oxyCODONE/APAP 5/325 1 TAB TABLET PO PRN ×2 (11:07→16:30)
--- NOTE | 2019-01-31 12:06 | PDOC ---
PROGRESS NOTES Chief Complaint Chief Complaint BLE cellulitis History of Present Illness History of Present Illness Patient sleeping upon entering room with both legs elevated. Leg pain is improving. Vitals Vitals Vital Signs Date Time Temp Pulse Resp B/P (MAP) Pulse Ox O2 Delivery O2 Flow Rate FiO2 01/31/19 11:09 94 Room Air 01/31/19 07:00 97.9 94 18 134/59 (84) 97.9 Physical Exam General: Alert, Oriented X3, Cooperative, No acute distress Heart: Regular rate, Normal S1, Normal S2, No murmurs Lungs: Clear Abdomen: Normal bowel sounds, Soft, No tenderness Extremities: Other (BLE erythma (improving), edema, no weeping) Skin: Other (see above) Labs LABS Laboratory Tests Test 01/31/19 04:30 White Blood Count 5.8 x10^3/uL (4.0-11.0) Red Blood Count 3.20 x10^6/uL (3.50-5.40) Hemoglobin 8.9 g/dL (12.0-15.5) Hematocrit 27.6 % (36.0-47.0) Mean Corpuscular Volume 86 fL (79-100) Mean Corpuscular Hemoglobin 28 pg (25-35) Mean Corpuscular Hemoglobin Concent 32 g/dL (31-37) Red Cell Distribution Width 16.9 % (11.5-14.5) Platelet Count 369 x10^3/uL (140-400) Neutrophils (%) (Auto) 61 % (31-73) Lymphocytes (%) (Auto) 25 % (24-48) Monocytes (%) (Auto) 9 % (0-9) Eosinophils (%) (Auto) 4 % (0-3) Basophils (%) (Auto) 1 % (0-3) Neutrophils # (Auto) 3.6 x10^3uL (1.8-7.7) Lymphocytes # (Auto) 1.4 x10^3/uL (1.0-4.8) Monocytes # (Auto) 0.5 x10^3/uL (0.0-1.1) Eosinophils # (Auto) 0.2 x10^3/uL (0.0-0.7) Basophils # (Auto) 0.1 x10^3/uL (0.0-0.2) Sodium Level 144 mmol/L (136-145) Potassium Level 3.7 mmol/L (3.5-5.1) Chloride Level 108 mmol/L (98-107) Carbon Dioxide Level 29 mmol/L (21-32) Anion Gap 7 (6-14) Blood Urea Nitrogen 6 mg/dL (7-20) Creatinine 0.6 mg/dL (0.6-1.0) Estimated GFR (Cockcroft-Gault) 104.6 Glucose Level 103 mg/dL (70-99) Calcium Level 8.4 mg/dL (8.5-10.1) Creatine Kinase 4208 U/L (26-192) Review of Systems Review of Systems BLE pain, swelling, redness - all improving but not resolved Assessment and Plan Assessmemt and Plan Problems Medical Problems: (1) Cellulitis of both lower extremities Status: Acute (2) Chronic low back pain Status: Acute (3) Lactic acidosis Status: Acute (4) Rhabdomyolysis Status: Acute Assessment: Bilateral lower extremity cellulitis - improving Tinea Mild rhabdomyolysis Hypotension - improved Hyperlipidemia, history of Neuropathy, history of Chronic pain, history of GERD, history of Anxiety and depression, history of Plan: Antibiotics per ID: Rocephin, Zyvox, Fluconazole - appreciate recs Micro: BCx (01/29) - no growth CK 4084 on admission, 4208 today - will recheck CK in am Restart IVF 75 cc/hr Daily labs - CBC, BMP Elevate legs Wound senior care meds PT/OT Comment Review of Relevant I have reviewed the following items mechelle (where applicable) has been applied. Labs Laboratory Tests Test 01/29/19 12:05 01/29/19 15:30 01/30/19 06:25 01/31/19 04:30 White Blood Count 7.6 x10^3/uL (4.0-11.0) 6.2 x10^3/uL (4.0-11.0) 5.8 x10^3/uL (4.0-11.0) Red Blood Count 3.51 x10^6/uL (3.50-5.40) 3.10 x10^6/uL (3.50-5.40) 3.20 x10^6/uL (3.50-5.40) Hemoglobin 9.8 g/dL (12.0-15.5) 8.5 g/dL (12.0-15.5) 8.9 g/dL (12.0-15.5) Hematocrit 30.3 % (36.0-47.0) 26.7 % (36.0-47.0) 27.6 % (36.0-47.0) Mean Corpuscular Volume 86 fL (79-100) 86 fL (79-100) 86 fL (79-100) Mean Corpuscular Hemoglobin 28 pg (25-35) 28 pg (25-35) 28 pg (25-35) Mean Corpuscular Hemoglobin Concent 32 g/dL (31-37) 32 g/dL (31-37) 32 g/dL (31-37) Red Cell Distribution Width 16.6 % (11.5-14.5) 16.8 % (11.5-14.5) 16.9 % (11.5-14.5) Platelet Count 395 x10^3/uL (140-400) 355 x10^3/uL (140-400) 369 x10^3/uL (140-400) Neutrophils (%) (Auto) 62 % (31-73) 64 % (31-73) 61 % (31-73) Lymphocytes (%) (Auto) 21 % (24-48) 20 % (24-48) 25 % (24-48) Monocytes (%) (Auto) 12 % (0-9) 11 % (0-9) 9 % (0-9) Eosinophils (%) (Auto) 5 % (0-3) 4 % (0-3) 4 % (0-3) Basophils (%) (Auto) 1 % (0-3) 1 % (0-3) 1 % (0-3) Neutrophils # (Auto) 4.7 x10^3uL (1.8-7.7) 4.0 x10^3uL (1.8-7.7) 3.6 x10^3uL (1.8-7.7) Lymphocytes # (Auto) 1.6 x10^3/uL (1.0-4.8) 1.2 x10^3/uL (1.0-4.8) 1.4 x10^3/uL (1.0-4.8) Monocytes # (Auto) 0.9 x10^3/uL (0.0-1.1) 0.7 x10^3/uL (0.0-1.1) 0.5 x10^3/uL (0.0-1.1) Eosinophils # (Auto) 0.3 x10^3/uL (0.0-0.7) 0.3 x10^3/uL (0.0-0.7) 0.2 x10^3/uL (0.0-0.7) Basophils # (Auto) 0.0 x10^3/uL (0.0-0.2) 0.0 x10^3/uL (0.0-0.2) 0.1 x10^3/uL (0.0-0.2) Prothrombin Time 13.2 SEC (11.7-14.0) Prothromb Time International Ratio 1.0 (0.8-1.1) Activated Partial Thromboplast Time 30 SEC (24-38) Sodium Level 131 mmol/L (136-145) 139 mmol/L (136-145) 144 mmol/L (136-145) Potassium Level 3.9 mmol/L (3.5-5.1) 3.8 mmol/L (3.5-5.1) 3.7 mmol/L (3.5-5.1) Chloride Level 94 mmol/L (98-107) 104 mmol/L (98-107) 108 mmol/L (98-107) Carbon Dioxide Level 29 mmol/L (21-32) 30 mmol/L (21-32) 29 mmol/L (21-32) Anion Gap 8 (6-14) 5 (6-14) 7 (6-14) Blood Urea Nitrogen 13 mg/dL (7-20) 7 mg/dL (7-20) 6 mg/dL (7-20) Creatinine 1.3 mg/dL (0.6-1.0) 0.7 mg/dL (0.6-1.0) 0.6 mg/dL (0.6-1.0) Estimated GFR (Cockcroft-Gault) 42.8 87.5 104.6 BUN/Creatinine Ratio 10 (6-20) Glucose Level 119 mg/dL (70-99) 110 mg/dL (70-99) 103 mg/dL (70-99) Lactic Acid Level 3.6 mmol/L (0.4-2.0) 1.2 mmol/L (0.4-2.0) Calcium Level 9.1 mg/dL (8.5-10.1) 8.0 mg/dL (8.5-10.1) 8.4 mg/dL (8.5-10.1) Magnesium Level 1.9 mg/dL (1.8-2.4) Total Bilirubin 0.4 mg/dL (0.2-1.0) Aspartate Amino Transf (AST/SGOT) 95 U/L (15-37) Alanine Aminotransferase (ALT/SGPT) 68 U/L (14-59) Alkaline Phosphatase 104 U/L (46-116) Creatine Kinase 4084 U/L (26-192) 4208 U/L (26-192) Creatine Kinase MB (Mass) 34.1 ng/mL (0.0-3.6) Creatine Kinase MB Relative Index 0.8 % (0-4) Troponin I Quantitative < 0.017 ng/mL (0.000-0.055) FN-Ogx-X-Type Natriuretic Peptide 196 pg/mL (0-124) Total Protein 7.0 g/dL (6.4-8.2) Albumin 3.2 g/dL (3.4-5.0) Albumin/Globulin Ratio 0.8 (1.0-1.7) Laboratory Tests Test 01/31/19 04:30 White Blood Count 5.8 x10^3/uL (4.0-11.0) Red Blood Count 3.20 x10^6/uL (3.50-5.40) Hemoglobin 8.9 g/dL (12.0-15.5) Hematocrit 27.6 % (36.0-47.0) Mean Corpuscular Volume 86 fL (79-100) Mean Corpuscular Hemoglobin 28 pg (25-35) Mean Corpuscular Hemoglobin Concent 32 g/dL (31-37) Red Cell Distribution Width 16.9 % (11.5-14.5) Platelet Count 369 x10^3/uL (140-400) Neutrophils (%) (Auto) 61 % (31-73) Lymphocytes (%) (Auto) 25 % (24-48) Monocytes (%) (Auto) 9 % (0-9) Eosinophils (%) (Auto) 4 % (0-3) Basophils (%) (Auto) 1 % (0-3) Neutrophils # (Auto) 3.6 x10^3uL (1.8-7.7) Lymphocytes # (Auto) 1.4 x10^3/uL (1.0-4.8) Monocytes # (Auto) 0.5 x10^3/uL (0.0-1.1) Eosinophils # (Auto) 0.2 x10^3/uL (0.0-0.7) Basophils # (Auto) 0.1 x10^3/uL (0.0-0.2) Sodium Level 144 mmol/L (136-145) Potassium Level 3.7 mmol/L (3.5-5.1) Chloride Level 108 mmol/L (98-107) Carbon Dioxide Level 29 mmol/L (21-32) Anion Gap 7 (6-14) Blood Urea Nitrogen 6 mg/dL (7-20) Creatinine 0.6 mg/dL (0.6-1.0) Estimated GFR (Cockcroft-Gault) 104.6 Glucose Level 103 mg/dL (70-99) Calcium Level 8.4 mg/dL (8.5-10.1) Creatine Kinase 4208 U/L (26-192) Microbiology 01/29/19 Blood Culture - Preliminary, Resulted NO GROWTH AFTER 1 DAY Medications Current Medications Piperacillin Sod/ Tazobactam Sod 4.5 gm/Sodium Chloride 100 ml @ 200 mls/hr 1X ONCE IV Last administered on 01/29/19at 12:32; Start 01/29/19 at 12:00; Stop 01/29/19 at 12:29; Status DC Vancomycin HCl (Vanco Per Pharmacy) 1 each 1X ONCE MC ; Start 01/29/19 at 12:00; Stop 01/29/19 at 12:03; Status DC Vancomycin HCl 2 gm/Sodium Chloride 500 ml @ 250 mls/hr 1X ONCE IV Last administered on 01/29/19at 13:02; Start 01/29/19 at 12:15; Stop 01/29/19 at 14:14; Status DC Fentanyl Citrate (Fentanyl 2ml Vial) 50 mcg 1X ONCE IV Last administered on 01/29/19at 12:31; Start 01/29/19 at 12:15; Stop 01/29/19 at 12:16; Status DC Ondansetron HCl (Zofran) 4 mg PRN Q8HRS PRN IV NAUSEA/VOMITING; Start 01/29/19 at 13:00; Stop 01/30/19 at 12:59; Status DC Morphine Sulfate (Morphine Sulfate) 4 mg PRN Q2HR PRN IV PAIN Last administered on 01/30/19 04:16; Start 01/29/19 at 13:00; Stop 01/31/19 at 12:58 Acetaminophen (Tylenol) 650 mg PRN Q4HRS PRN PO FEVER; Start 01/29/19 at 13:00 Albuterol Sulfate (Ventolin Neb Soln) 2.5 mg PRN Q6HRS PRN INH SHORTNESS OF BREATH; Start 01/29/19 at 13:00 Aspirin (Children'S Aspirin) 81 mg DAILY PO Last administered on 01/31/19 08:27; Start 01/29/19 at 14:00 Clonazepam (KlonoPIN) 1 mg DAILY PO Last administered on 01/31/19 08:27; Start 01/29/19 at 14:00 Cyclobenzaprine HCl (Flexeril) 10 mg PRN TID PRN PO MUSCLE SPASMS Last administered on 01/30/19 21:51; Start 01/29/19 at 13:00 Duloxetine HCl (Cymbalta) 30 mg BID PO Last administered on 01/31/19 08:26; Start 01/29/19 at 21:00 Gabapentin (Neurontin) 300 mg TID PO Last administered on 01/31/19 08:27; Start 01/29/19 at 14:00 Tramadol HCl (Ultram) 50 mg PRN Q12HR PRN PO PAIN; Start 01/29/19 at 13:00; Status UNV Tramadol HCl (Ultram) 50 mg PRN Q8HRS PRN PO PAIN Last administered on at 06:46; Start 01/29/19 at 13:00; Stop 01/30/19 at 09:17; Status DC Non-Formulary Medication (Albuterol Sulfate (Proair Respiclick)) 1 puff DAILY PRN IH SHORTNESS OF BREATH; Start 01/29/19 at 13:00; Status UNV Albuterol Sulfate (Ventolin Neb Soln) 2.5 mg Q4HRS NEB Last administered on 01/31/19at 11:07; Start 01/29/19 at 16:00 Benzonatate (Tessalon Perle) 100 mg [id number] PO Last administered on 01/29/19at 20:04; Start 01/29/19 at 14:00; Stop 01/30/19 at 09:07; Status DC Budesonide (Pulmicort) 0.5 mg RTBID NEB Last administered on 01/31/19at 07:11; Start 01/29/19 at 20:00 Non-Formulary Medication (Methylprednisolone (Medrol)) 1 pkg UD PO ; Start 01/29/19 at 13:00; Status UNV Pantoprazole Sodium (Protonix) 40 mg DAILYAC PO Last administered on 01/31/19at 05:36; Start 01/29/19 at 14:00 Sodium Chloride 1,000 ml @ 1,000 mls/hr 1X ONCE IV Last administered on 01/29/19at 13:24; Start 01/29/19 at 13:15; Stop 01/29/19 at 14:14; Status DC Sodium Chloride 1,000 ml @ 1,000 mls/hr 1X ONCE IV ; Start 01/29/19 at 13:15; Stop 01/29/19 at 14:14; Status DC Sodium Chloride 1,000 ml @ 125 mls/hr 1X ONCE IV Last administered on 01/29/19at 17:58; Start 01/29/19 at 13:15; Stop 01/29/19 at 21:14; Status DC Fentanyl Citrate (Fentanyl 2ml Vial) 50 mcg PRN Q2HR PRN IV PAIN Last administered on 01/31/19at 08:29; Start 01/29/19 at 15:45 Vancomycin HCl (Vanco Per Pharmacy) 1 each PRN DAILY PRN MC SEE COMMENTS Last administered on 01/29/19at 20:22; Start 01/29/19 at 19:45; Stop 01/30/19 at 09:10; Status DC Piperacillin Sod/ Tazobactam Sod (Zosyn Per Pharmacy) 1 each PRN DAILY PRN MC SEE COMMENTS; Start 01/29/19 at 19:45; Stop 01/30/19 at 09:10; Status DC Vancomycin HCl 2 gm/Sodium Chloride 500 ml @ 250 mls/hr 1X ONCE IV Last administered on 01/29/19at 20:06; Start 01/29/19 at 20:00; Stop 01/29/19 at 21:59; Status DC Piperacillin Sod/ Tazobactam Sod 3.375 gm/Sodium Chloride 50 ml @ 100 mls/hr Q6HRS IV Last administered on 01/30/19at 05:24; Start 01/30/19 at 00:00; Stop 01/30/19 at 09:10; Status DC Vancomycin HCl (Vancomycin Trough Level) 1 each 1X ONCE MC ; Start 01/31/19 at 19:30; Stop 01/31/19 at 19:31; Status Cancel Vancomycin HCl 1.75 gm/Sodium Chloride 500 ml @ 250 mls/hr Q24H IV ; Start 01/30/19 at 20:00; Stop 01/30/19 at 20:00; Status DC Benzonatate (Tessalon Perle) 100 mg PRN TID PRN PO COUGH; Start 01/30/19 at 10:00 Ceftriaxone Sodium (Rocephin) 1 gm Q24H IVP Last administered on 01/31/19at 10:58; Start 01/30/19 at 10:00 Linezolid (Zyvox) 600 mg BID PO Last administered on 01/31/19at 08:26; Start 01/30/19 at 10:00 Fluconazole (Diflucan) 200 mg DAILY PO Last administered on 01/31/19at 08:26; Start 01/30/19 at 10:00 Oxycodone/ Acetaminophen (Percocet 5/325) 1 tab PRN Q4HRS PRN PO PAIN Last administered on 01/31/19at 11:07; Start 01/30/19 at 13:00 Active Scripts Active Tylenol (Acetaminophen) 325 Mg Tablet 650 Mg PO PRN Q4HRS PRN 14 Days Proair Hfa (Albuterol Sulfate) 8.5 Gm Hfa.aer.ad 1 Puff INH PRN Q6HRS PRN Medrol (Methylprednisolone) 4 Mg Tab.ds.pk 1 Pkg PO UD Ventolin Hfa Inhaler (Albuterol Sulfate) 18 Gm Hfa.aer.ad 2 Puff INH Q4HRS Tessalon Perle (Benzonatate) 100 Mg Capsule 1 Cap PO TID Tramadol Hcl 50 Mg Tablet 1 Tab PO PRN Q12HR PRN Reported Gabapentin (Gabapentin) 300 Mg Capsule 300 Mg PO TID Aspirin 81 Mg Tab.chew 1 Tab PO DAILY Tramadol Hcl 50 Mg Tablet 50 Mg PO Q8HRS PRN Clonazepam 1 Mg Tablet 1 Mg PO DAILY Symbicort 160-4.5 Mcg Inhaler (Budesonide/Formoterol Fumarate) 10.2 Gm Hfa.aer.ad 2 Puff IH BID Simvastatin 10 Mg Tablet 1 Tab PO QHS Omeprazole 20 Mg Capsule.dr 1 Cap PO BID Cyclobenzaprine Hcl 10 Mg Tablet 1 Tab PO PRN TID PRN Cymbalta (Duloxetine Hcl) 30 Mg Capsule. 30 Mg PO BID Proair Respiclick (Albuterol Sulfate) 90 Mcg Aer.pow.ba 1 Puff IH DAILY PRN Vitals/I & O Vital Sign - Last 24 Hours 01/30/19 01/30/19 01/30/19 01/30/19 14:19 15:00 15:22 15:23 Temp 98.2 98.2 Pulse 98 Resp 20 B/P (MAP) 132/64 (86) Pulse Ox 96 97 O2 Delivery Room Air Room Air Room Air Room Air 01/30/19 01/30/19 01/30/19 01/30/19 19:00 20:00 20:16 21:11 Temp 98.1 98.1 Pulse 73 Resp 18 B/P (MAP) 102/58 (73) Pulse Ox 94 97 97 O2 Delivery Room Air Room Air Room Air Room Air 01/30/19 01/30/19 01/30/19 01/30/19 21:11 21:51 22:51 23:00 Temp 98.9 98.9 Pulse 100 Resp 18 B/P (MAP) 101/52 (68) Pulse Ox 97 97 97 97 O2 Delivery Room Air Room Air Room Air Room Air 01/31/19 01/31/19 01/31/19 01/31/19 01:49 03:00 05:07 05:37 Temp 98.6 98.6 Pulse 89 Resp 18 B/P (MAP) 120/64 (82) Pulse Ox 97 94 94 94 O2 Delivery Room Air Room Air Room Air 01/31/19 01/31/19 01/31/19 4/23/19 07:00 07:11 08:18 08:29 Temp 97.9 97.9 Pulse 94 Resp 18 B/P (MAP) 134/59 (84) Pulse Ox 95 92 O2 Delivery Room Air Room Air Room Air Room Air 01/31/19 01/31/19 01/31/19 09:00 11:07 11:09 Pulse Ox 94 O2 Delivery Room Air Room Air Room Air LUCIO ANDINO III DO Jan 31, 2019 12:06
[2019-01-31] MEDS: MORPHINE SULFATE 4 MG/ML VIAL. IV PRN (12:13)
[2019-01-31] MEDS: IV NORMAL SALINE 1000ML BAG 1,000 ML IV SCH (12:45)
--- NOTE | 2019-01-31 13:08 | NUR ---
SW following for discharge planning. Discussed with RN, pt is from home. Pt having IV abx here, Dr. Wilson still waiting for cultures to determine which abx to dc pt on. No other SW needs at this time. SW will continue to follow.
[2019-01-31 15:00] VITALS: BP 117/63
[2019-01-31 19:35] VITALS: BP 124/71
[2019-01-31] MEDS: LACTOBACILLUS RHAMNOSUS GG 1 CAPSULE. PO SCH (20:54)
[2019-01-31] MEDS: CYCLOBENZAPRINE 10 MG TABLET. PO PRN (20:58)
[2019-01-31 23:37] VITALS: BP 132/63
[2019-02-01] MEDS: IV NORMAL SALINE 1000ML BAG 1,000 ML IV SCH (00:20)
[2019-02-01] MEDS: oxyCODONE/APAP 5/325 1 TAB TABLET PO PRN ×2 (00:27→06:48)
[2019-02-01 03:32] VITALS: BP 127/67
[2019-02-01] MEDS: fentaNYL PF VIAL 100 MCG/2 ML VIAL IV PRN ×2 (03:33→08:44)
[2019-02-01] MEDS: ALBUTEROL SULFATE 2.5 MG/3 ML NEBU. NEB SCH ×3 (03:38→07:29)
[2019-02-01 04:48] LABS: BASO % 0 % (0-3); EOS # 0.3 x10^3/uL (0.0-0.7); EOS % 3 % (0-3); HEMATOCRIT 28.7 % (36.0-47.0); HEMOGLOBIN 9.5 g/dL (12.0-15.5); LYMPH # 1.4 x10^3/uL (1.0-4.8); LYMPH % 14 % (24-48); MEAN CORPUSCULAR HEMOGLOBIN 29 pg (25-35); MEAN CORPUSCULAR HGB CONC 33 g/dL (31-37); MEAN CORPUSCULAR VOLUME 87 fL (79-100); MONO # 0.7 x10^3/uL (0.0-1.1); MONO % 7 % (0-9); NEUT # 7.4 x10^3uL (1.8-7.7); NEUT % 76 % (31-73); PLATELET COUNT 420 x10^3/uL (140-400); WHITE BLOOD COUNT 9.8 x10^3/uL (4.0-11.0)
[2019-02-01 05:18] LABS: CALCIUM 8.9 mg/dL (8.5-10.1); CREATININE 0.7 mg/dL (0.6-1.0); GFR 87.5; POTASSIUM 3.6 mmol/L (3.5-5.1)
[2019-02-01 07:00] VITALS: BP 142/67
[2019-02-01] MEDS: CYCLOBENZAPRINE 10 MG TABLET. PO PRN (07:03)
[2019-02-01] MEDS: BUDESONIDE 0.5 MG/2 ML NEBU. NEB SCH (07:29)
[2019-02-01] MEDS: PANTOPRAZOLE 40 MG TABLET.DR. PO SCH (08:44)
[2019-02-01] MEDS: GABAPENTIN 300 MG CAPSULE. PO SCH (08:44)
[2019-02-01] MEDS: LACTOBACILLUS RHAMNOSUS GG 1 CAPSULE. PO SCH (08:45)
[2019-02-01] MEDS: FLUCONAZOLE 100 MG TABLET. PO SCH (08:45)
[2019-02-01] MEDS: clonazePAM 1 MG TABLET PO SCH (08:45)
[2019-02-01] MEDS: ASPIRIN CHEWABLE 81 MG TABLET. PO SCH (08:45)
[2019-02-01] MEDS: DULoxetine HCL 30 MG CAPSULE.DR PO SCH (08:45)
[2019-02-01] MEDS: LINEZOLID 600 MG TABLET PO SCH (08:45)
[2019-02-01] MEDS: cefTRIAXone IV Push 1 GM VIAL. IVP SCH (08:49)
--- NOTE | 2019-02-01 09:23 | PDOC ---
Infectious Disease Note Subjective Subjective much better and wanting to leave No F/C/S/N/V/D/SOA - rash Vital Sign Vital Signs Vital Signs Date Time Temp Pulse Resp B/P (MAP) Pulse Ox O2 Delivery O2 Flow Rate FiO2 02/01/19 08:45 Room Air 02/01/19 07:29 95 02/01/19 07:00 98.7 70 18 142/67 (92) 98.7 01/31/19 17:30 93.0 Physical Exam PHYSICAL EXAM CONSTITUTIONAL: She is lying in bed, she is cooperative. She is in no acute distress. HEENT: Pupils are equal and reactive. Oropharynx clear. NECK: Supple, no JVD. LUNGS: Clear to auscultation. HEART: S1, S2. ABDOMEN: Obese, soft, nontender, nondistended, no guarding or rebound. EXTREMITIES: Without clubbing, cyanosis. She has bilateral lower extremity trace to 1-+ edema with min bilateral lower extremity erythema on her feet to just above her knees. Less warmth no tenderness SKIN: Warm to touch. She has tinea on both feet as well. NEUROLOGIC: She is nonfocal, moves all extremities. PSYCHIATRIC: Affect is pleasant. Labs Lab Laboratory Tests Test 02/01/19 04:35 White Blood Count 9.8 x10^3/uL (4.0-11.0) Red Blood Count 3.30 x10^6/uL (3.50-5.40) Hemoglobin 9.5 g/dL (12.0-15.5) Hematocrit 28.7 % (36.0-47.0) Mean Corpuscular Volume 87 fL (79-100) Mean Corpuscular Hemoglobin 29 pg (25-35) Mean Corpuscular Hemoglobin Concent 33 g/dL (31-37) Red Cell Distribution Width 17.0 % (11.5-14.5) Platelet Count 420 x10^3/uL (140-400) Neutrophils (%) (Auto) 76 % (31-73) Lymphocytes (%) (Auto) 14 % (24-48) Monocytes (%) (Auto) 7 % (0-9) Eosinophils (%) (Auto) 3 % (0-3) Basophils (%) (Auto) 0 % (0-3) Neutrophils # (Auto) 7.4 x10^3uL (1.8-7.7) Lymphocytes # (Auto) 1.4 x10^3/uL (1.0-4.8) Monocytes # (Auto) 0.7 x10^3/uL (0.0-1.1) Eosinophils # (Auto) 0.3 x10^3/uL (0.0-0.7) Basophils # (Auto) 0.0 x10^3/uL (0.0-0.2) Sodium Level 142 mmol/L (136-145) Potassium Level 3.6 mmol/L (3.5-5.1) Chloride Level 106 mmol/L (98-107) Carbon Dioxide Level 26 mmol/L (21-32) Anion Gap 10 (6-14) Blood Urea Nitrogen 5 mg/dL (7-20) Creatinine 0.7 mg/dL (0.6-1.0) Estimated GFR (Cockcroft-Gault) 87.5 Glucose Level 107 mg/dL (70-99) Calcium Level 8.9 mg/dL (8.5-10.1) Creatine Kinase 1981 U/L (26-192) Micro Microbiology 01/29/19 Blood Culture - Preliminary, Resulted NO GROWTH AFTER 1 DAY Objective Assessment Paras LE Cellulitis- cults neg - improving - "going home today" Tinea ? Rhabdo- CK slight improvement Hypotension - improved Plan Plan of Care Tomy with Zyvox/Fluconazole for 7 days. Rx written she is removing her IV per nursing F/u with primary d/w nursing KAYY CAMPBELL MD Feb 01, 2019 09:23
--- NOTE | 2019-02-01 11:00 | NUR ---
Pt has come to the hallway and the nurses station several times wanting to leave without being seen. This nurse has explained multiple times that we are waiting on Dr. Serrano for final discharge orders. Dr. Wilson has ok'd dc and given rx for po abx. Will continue to monitor.
[2019-02-01] MEDS ORDERED: HYDR-2759 PO (11:19)
[2019-02-01] MEDS ORDERED: LINE600T PO (11:20)
[2019-02-01] MEDS ORDERED: FLUC200T4 PO (11:21)
--- NOTE | 2019-02-01 11:30 | NUR ---
Pt refused dc pictures on bilateral cellulitis as she stated that she needed to go right away after discharge orders were put in. Pt and refused teaching. Discharge instructions reviewed as quickly as pt allowed it, unsure if there was full understanding, paper copy given to pt. Rx for abx and pain medications given to pt. Pt dc with , pt left before staff member could accompanied her to hospital exit.
--- NOTE | 2019-02-01 12:45 | PDOC ---
PROGRESS NOTES Chief Complaint Chief Complaint BLE cellulitis History of Present Illness History of Present Illness Patient anxious to go home today, she was dressed and gathering her belongings. Redness and swelling has improved significantly in both legs, she requests a prescription for pain in her back and legs. Vitals Vitals Vital Signs Date Time Temp Pulse Resp B/P (MAP) Pulse Ox O2 Delivery O2 Flow Rate FiO2 02/01/19 10:52 95 Room Air 93.0 02/01/19 07:00 98.7 70 18 142/67 (92) 98.7 Physical Exam Physical Exam CONSTITUTIONAL: She is lying in bed, she is cooperative. She is in no acute distress. HEENT: Pupils are equal and reactive. Oropharynx clear. NECK: Supple, no JVD. LUNGS: Clear to auscultation. HEART: S1, S2. ABDOMEN: Obese, soft, nontender, nondistended, no guarding or rebound. EXTREMITIES: Without clubbing, cyanosis. She has bilateral lower extremity trace to 1-+ edema with min bilateral lower extremity erythema on her feet to just above her knees. Less warmth no tenderness SKIN: Warm to touch. She has tinea on both feet as well. NEUROLOGIC: She is nonfocal, moves all extremities. PSYCHIATRIC: Affect is pleasant. General: Alert, Oriented X3, Cooperative, No acute distress Heart: Regular rate, Normal S1, Normal S2, No murmurs Lungs: Clear Abdomen: Normal bowel sounds, Soft, No tenderness Extremities: Other (BLE erythma (improving), edema, no weeping) Skin: Other (see above) Labs LABS Laboratory Tests Test 02/01/19 04:35 White Blood Count 9.8 x10^3/uL (4.0-11.0) Red Blood Count 3.30 x10^6/uL (3.50-5.40) Hemoglobin 9.5 g/dL (12.0-15.5) Hematocrit 28.7 % (36.0-47.0) Mean Corpuscular Volume 87 fL (79-100) Mean Corpuscular Hemoglobin 29 pg (25-35) Mean Corpuscular Hemoglobin Concent 33 g/dL (31-37) Red Cell Distribution Width 17.0 % (11.5-14.5) Platelet Count 420 x10^3/uL (140-400) Neutrophils (%) (Auto) 76 % (31-73) Lymphocytes (%) (Auto) 14 % (24-48) Monocytes (%) (Auto) 7 % (0-9) Eosinophils (%) (Auto) 3 % (0-3) Basophils (%) (Auto) 0 % (0-3) Neutrophils # (Auto) 7.4 x10^3uL (1.8-7.7) Lymphocytes # (Auto) 1.4 x10^3/uL (1.0-4.8) Monocytes # (Auto) 0.7 x10^3/uL (0.0-1.1) Eosinophils # (Auto) 0.3 x10^3/uL (0.0-0.7) Basophils # (Auto) 0.0 x10^3/uL (0.0-0.2) Sodium Level 142 mmol/L (136-145) Potassium Level 3.6 mmol/L (3.5-5.1) Chloride Level 106 mmol/L (98-107) Carbon Dioxide Level 26 mmol/L (21-32) Anion Gap 10 (6-14) Blood Urea Nitrogen 5 mg/dL (7-20) Creatinine 0.7 mg/dL (0.6-1.0) Estimated GFR (Cockcroft-Gault) 87.5 Glucose Level 107 mg/dL (70-99) Calcium Level 8.9 mg/dL (8.5-10.1) Creatine Kinase 1981 U/L (26-192) Review of Systems Review of Systems back pain, leg pain, redness/swelling improving BLE Assessment and Plan Assessmemt and Plan Problems Medical Problems: (1) Cellulitis of both lower extremities Status: Acute (2) Chronic low back pain Status: Acute (3) Lactic acidosis Status: Acute (4) Rhabdomyolysis Status: Acute Assessment: Bilateral lower extremity cellulitis - improving Tinea Mild rhabdomyolysis - improving Hypotension - improved Hyperlipidemia, history of Neuropathy, history of Chronic pain, history of GERD, history of Anxiety and depression, history of Plan: Antibiotics per ID: IV Vanc (01/29-01/30) Zosyn (01/29-01/30) Rocephin (01/30 - 02/01) Zyvox (01/30- discharge) - Script on chart for Linezolid 600 mg BID #14 Fluconazole (01/30 - discharge) - Script on chart for Fluconazole 200 mg daily #7 Micro: BCx (01/29) - NGTD CK 4084 on admission, 1980 today Encouraged patient to continue to elevate legs Pain management - Lortab 5 mg #30 script written Follow up with PCP within 7-10 days Dispo: discharge home today Comment Review of Relevant I have reviewed the following items mechelle (where applicable) has been applied. Labs Laboratory Tests Test 01/31/19 04:30 02/01/19 04:35 White Blood Count 5.8 x10^3/uL (4.0-11.0) 9.8 x10^3/uL (4.0-11.0) Red Blood Count 3.20 x10^6/uL (3.50-5.40) 3.30 x10^6/uL (3.50-5.40) Hemoglobin 8.9 g/dL (12.0-15.5) 9.5 g/dL (12.0-15.5) Hematocrit 27.6 % (36.0-47.0) 28.7 % (36.0-47.0) Mean Corpuscular Volume 86 fL (79-100) 87 fL (79-100) Mean Corpuscular Hemoglobin 28 pg (25-35) 29 pg (25-35) Mean Corpuscular Hemoglobin Concent 32 g/dL (31-37) 33 g/dL (31-37) Red Cell Distribution Width 16.9 % (11.5-14.5) 17.0 % (11.5-14.5) Platelet Count 369 x10^3/uL (140-400) 420 x10^3/uL (140-400) Neutrophils (%) (Auto) 61 % (31-73) 76 % (31-73) Lymphocytes (%) (Auto) 25 % (24-48) 14 % (24-48) Monocytes (%) (Auto) 9 % (0-9) 7 % (0-9) Eosinophils (%) (Auto) 4 % (0-3) 3 % (0-3) Basophils (%) (Auto) 1 % (0-3) 0 % (0-3) Neutrophils # (Auto) 3.6 x10^3uL (1.8-7.7) 7.4 x10^3uL (1.8-7.7) Lymphocytes # (Auto) 1.4 x10^3/uL (1.0-4.8) 1.4 x10^3/uL (1.0-4.8) Monocytes # (Auto) 0.5 x10^3/uL (0.0-1.1) 0.7 x10^3/uL (0.0-1.1) Eosinophils # (Auto) 0.2 x10^3/uL (0.0-0.7) 0.3 x10^3/uL (0.0-0.7) Basophils # (Auto) 0.1 x10^3/uL (0.0-0.2) 0.0 x10^3/uL (0.0-0.2) Sodium Level 144 mmol/L (136-145) 142 mmol/L (136-145) Potassium Level 3.7 mmol/L (3.5-5.1) 3.6 mmol/L (3.5-5.1) Chloride Level 108 mmol/L (98-107) 106 mmol/L (98-107) Carbon Dioxide Level 29 mmol/L (21-32) 26 mmol/L (21-32) Anion Gap 7 (6-14) 10 (6-14) Blood Urea Nitrogen 6 mg/dL (7-20) 5 mg/dL (7-20) Creatinine 0.6 mg/dL (0.6-1.0) 0.7 mg/dL (0.6-1.0) Estimated GFR (Cockcroft-Gault) 104.6 87.5 Glucose Level 103 mg/dL (70-99) 107 mg/dL (70-99) Calcium Level 8.4 mg/dL (8.5-10.1) 8.9 mg/dL (8.5-10.1) Creatine Kinase 4208 U/L (26-192) 1981 U/L (26-192) Laboratory Tests Test 02/01/19 04:35 White Blood Count 9.8 x10^3/uL (4.0-11.0) Red Blood Count 3.30 x10^6/uL (3.50-5.40) Hemoglobin 9.5 g/dL (12.0-15.5) Hematocrit 28.7 % (36.0-47.0) Mean Corpuscular Volume 87 fL (79-100) Mean Corpuscular Hemoglobin 29 pg (25-35) Mean Corpuscular Hemoglobin Concent 33 g/dL (31-37) Red Cell Distribution Width 17.0 % (11.5-14.5) Platelet Count 420 x10^3/uL (140-400) Neutrophils (%) (Auto) 76 % (31-73) Lymphocytes (%) (Auto) 14 % (24-48) Monocytes (%) (Auto) 7 % (0-9) Eosinophils (%) (Auto) 3 % (0-3) Basophils (%) (Auto) 0 % (0-3) Neutrophils # (Auto) 7.4 x10^3uL (1.8-7.7) Lymphocytes # (Auto) 1.4 x10^3/uL (1.0-4.8) Monocytes # (Auto) 0.7 x10^3/uL (0.0-1.1) Eosinophils # (Auto) 0.3 x10^3/uL (0.0-0.7) Basophils # (Auto) 0.0 x10^3/uL (0.0-0.2) Sodium Level 142 mmol/L (136-145) Potassium Level 3.6 mmol/L (3.5-5.1) Chloride Level 106 mmol/L (98-107) Carbon Dioxide Level 26 mmol/L (21-32) Anion Gap 10 (6-14) Blood Urea Nitrogen 5 mg/dL (7-20) Creatinine 0.7 mg/dL (0.6-1.0) Estimated GFR (Cockcroft-Gault) 87.5 Glucose Level 107 mg/dL (70-99) Calcium Level 8.9 mg/dL (8.5-10.1) Creatine Kinase 1981 U/L (26-192) Microbiology 01/29/19 Blood Culture - Preliminary, Resulted NO GROWTH AFTER 3 DAYS Medications Current Medications Piperacillin Sod/ Tazobactam Sod 4.5 gm/Sodium Chloride 100 ml @ 200 mls/hr 1X ONCE IV Last administered on 01/29/19at 12:32; Start 01/29/19 at 12:00; Stop 01/29/19 at 12:29; Status DC Vancomycin HCl (Vanco Per Pharmacy) 1 each 1X ONCE MC ; Start 01/29/19 at 12:00; Stop 01/29/19 at 12:03; Status DC Vancomycin HCl 2 gm/Sodium Chloride 500 ml @ 250 mls/hr 1X ONCE IV Last administered on 01/29/19at 13:02; Start 01/29/19 at 12:15; Stop 01/29/19 at 14:14; Status DC Fentanyl Citrate (Fentanyl 2ml Vial) 50 mcg 1X ONCE IV Last administered on 01/29/19at 12:31; Start 01/29/19 at 12:15; Stop 01/29/19 at 12:16; Status DC Ondansetron HCl (Zofran) 4 mg PRN Q8HRS PRN IV NAUSEA/VOMITING; Start 01/29/19 at 13:00; Stop 01/30/19 at 12:59; Status DC Morphine Sulfate (Morphine Sulfate) 4 mg PRN Q2HR PRN IV PAIN Last administered on 01/31/19at 12:13; Start 01/29/19 at 13:00; Stop 01/31/19 at 12:58; Status DC Acetaminophen (Tylenol) 650 mg PRN Q4HRS PRN PO FEVER; Start 01/29/19 at 13:00; Stop 02/01/19 at 11:52; Status DC Albuterol Sulfate (Ventolin Neb Soln) 2.5 mg PRN Q6HRS PRN INH SHORTNESS OF EFRAIN ATH; Start 01/29/19 at 13:00; Stop 02/01/19 at 11:52; Status DC Aspirin (Children'S Aspirin) 81 mg DAILY PO Last administered on 02/01/19at 08:45; Start 01/29/19 at 14:00; Stop 02/01/19 at 11:52; Status DC Clonazepam (KlonoPIN) 1 mg DAILY PO Last administered on 02/01/19at 08:45; Start 01/29/19 at 14:00; Stop 02/01/19 at 11:52; Status DC Cyclobenzaprine HCl (Flexeril) 10 mg PRN TID PRN PO MUSCLE SPASMS Last administered on 02/01/19 07:03; Start 01/29/19 at 13:00; Stop 02/01/19 at 11:52; Status DC Duloxetine HCl (Cymbalta) 30 mg BID PO Last administered on 02/01/19 08:45; Start 01/29/19 at 21:00; Stop 02/01/19 at 11:52; Status DC Gabapentin (Neurontin) 300 mg TID PO Last administered on 02/01/19 08:44; Start 01/29/19 at 14:00; Stop 02/01/19 at 11:52; Status DC Tramadol HCl (Ultram) 50 mg PRN Q12HR PRN PO PAIN; Start 01/29/19 at 13:00; Status UNV Tramadol HCl (Ultram) 50 mg PRN Q8HRS PRN PO PAIN Last administered on 01/30/19 06:46; Start 01/29/19 at 13:00; Stop 01/30/19 at 09:17; Status DC Non-Formulary Medication (Albuterol Sulfate (Proair Respiclick)) 1 puff DAILY PRN IH SHORTNESS OF BREATH; Start 01/29/19 at 13:00; Status UNV Albuterol Sulfate (Ventolin Neb Soln) 2.5 mg Q4HRS NEB Last administered on 02/01/19 07:29; Start 01/29/19 at 16:00; Stop 02/01/19 at 11:52; Status DC Benzonatate (Tessalon Perle) 100 mg [id number] PO Last administered on 01/29/19 20:04; Start 01/29/19 at 14:00; Stop 01/30/19 at 09:07; Status DC Budesonide (Pulmicort) 0.5 mg RTBID NEB Last administered on 02/01/19 07:29; Start 01/29/19 at 20:00; Stop 02/01/19 at 11:52; Status DC Non-Formulary Medication (Methylprednisolone (Medrol)) 1 pkg UD PO ; Start 01/29/19 at 13:00; Status UNV Pantoprazole Sodium (Protonix) 40 mg DAILYAC PO Last administered on 02/01/19 08:44; Start 01/29/19 at 14:00; Stop 02/01/19 at 11:52; Status DC Sodium Chloride 1,000 ml @ 1,000 mls/hr 1X ONCE IV Last administered on 01/29/19 13:24; Start 01/29/19 at 13:15; Stop 01/29/19 at 14:14; Status DC Sodium Chloride 1,000 ml @ 1,000 mls/hr 1X ONCE IV ; Start 01/29/19 at 13:15; Stop 01/29/19 at 14:14; Status DC Sodium Chloride 1,000 ml @ 125 mls/hr 1X ONCE IV Last administered on 01/29/19at 17:58; Start 01/29/19 at 13:15; Stop 01/29/19 at 21:14; Status DC Fentanyl Citrate (Fentanyl 2ml Vial) 50 mcg PRN Q2HR PRN IV PAIN Last administered on 02/01/19at 08:44; Start 01/29/19 at 15:45; Stop 02/01/19 at 11:52; Status DC Vancomycin HCl (Vanco Per Pharmacy) 1 each PRN DAILY PRN MC SEE COMMENTS Last administered on 01/29/19at 20:22; Start 01/29/19 at 19:45; Stop 01/30/19 at 09:10; Status DC Piperacillin Sod/ Tazobactam Sod (Zosyn Per Pharmacy) 1 each PRN DAILY PRN MC S EE COMMENTS; Start 01/29/19 at 19:45; Stop 01/30/19 at 09:10; Status DC Vancomycin HCl 2 gm/Sodium Chloride 500 ml @ 250 mls/hr 1X ONCE IV Last administered on 01/29/19at 20:06; Start 01/29/19 at 20:00; Stop 01/29/19 at 21:59; Status DC Piperacillin Sod/ Tazobactam Sod 3.375 gm/Sodium Chloride 50 ml @ 100 mls/hr Q6HRS IV Last administered on 01/30/19at 05:24; Start 01/30/19 at 00:00; Stop 01/30/19 at 09:10; Status DC Vancomycin HCl (Vancomycin Trough Level) 1 each 1X ONCE MC ; Start 01/31/19 at 19:30; Stop 01/31/19 at 19:31; Status Cancel Vancomycin HCl 1.75 gm/Sodium Chloride 500 ml @ 250 mls/hr Q24H IV ; Start 01/30/19 at 20:00; Stop 01/30/19 at 20:00; Status DC Benzonatate (Tessalon Perle) 100 mg PRN TID PRN PO COUGH Last administered on 01/31/19at 20:04; Start 01/30/19 at 10:00; Stop 02/01/19 at 11:52; Status DC Ceftriaxone Sodium (Rocephin) 1 gm Q24H IVP Last administered on 02/01/19 08:49; Start 01/30/19 at 10:00; Stop 02/01/19 at 11:52; Status DC Linezolid (Zyvox) 600 mg BID PO Last administered on 02/01/19 08:45; Start 01/30/19 at 10:00; Stop 02/01/19 at 11:52; Status DC Fluconazole (Diflucan) 200 mg DAILY PO Last administered on 02/01/19 08:45; Start 01/30/19 at 10:00; Stop 02/01/19 at 11:52; Status DC Oxycodone/ Acetaminophen (Percocet 5/325) 1 tab PRN Q4HRS PRN PO PAIN Last administered on 02/01/19 06:48; Start 01/30/19 at 13:00; Stop 02/01/19 at 11:52; Status DC Sodium Chloride 1,000 ml @ 75 mls/hr [id number] IV Last administered on 02/01/19 00:20; Start 01/31/19 at 12:30; Stop 02/01/19 at 11:52; Status DC Lactobacillus Rhamnosus (Culturelle) 1 cap BID PO Last administered on 02/01/19 08:45; Start 01/31/19 at 21:00; Stop 02/01/19 at 11:52; Status DC Active Scripts Active Tylenol (Acetaminophen) 325 Mg Tablet 650 Mg PO PRN Q4HRS PRN 14 Days Proair Hfa (Albuterol Sulfate) 8.5 Gm Hfa.aer.ad 1 Puff INH PRN Q6HRS PRN Medrol (Methylprednisolone) 4 Mg Tab.ds.pk 1 Pkg PO UD Ventolin Hfa Inhaler (Albuterol Sulfate) 18 Gm Hfa.aer.ad 2 Puff INH Q4HRS Tessalon Perle (Benzonatate) 100 Mg Capsule 1 Cap PO TID Tramadol Hcl 50 Mg Tablet 1 Tab PO PRN Q12HR PRN Reported Fluconazole 200 Mg Tablet 1 Tab PO DAILY 7 Days Zyvox (Linezolid) 600 Mg Tablet 600 Mg PO BID 7 Days Hydrocodone-Acetamin 5-325 mg (Hydrocodone/Acetaminophen) 1 Each Tablet 1 Each PO Q4HRS Gabapentin (Gabapentin) 300 Mg Capsule 300 Mg PO TID Aspirin 81 Mg Tab.chew 1 Tab PO DAILY Tramadol Hcl 50 Mg Tablet 50 Mg PO Q8HRS PRN Clonazepam 1 Mg Tablet 1 Mg PO DAILY Symbicort 160-4.5 Mcg Inhaler (Budesonide/Formoterol Fumarate) 10.2 Gm Hfa.aer.ad 2 Puff IH BID Simvastatin 10 Mg Tablet 1 Tab PO QHS Omeprazole 20 Mg Capsule.dr 1 Cap PO BID Cyclobenzaprine Hcl 10 Mg Tablet 1 Tab PO PRN TID PRN Cymbalta (Duloxetine Hcl) 30 Mg Capsule. 30 Mg PO BID Proair Respiclick (Albuterol Sulfate) 90 Mcg Aer.pow.ba 1 Puff IH DAILY PRN Vitals/I & O Vital Sign - Last 24 Hours 01/31/19 01/31/19 01/31/19 01/31/19 12:43 14:31 15:00 15:24 Temp 98.1 98.1 Pulse 91 Resp 18 B/P (MAP) 117/63 (81) Pulse Ox 94 94 97 100 O2 Delivery Room Air Room Air Room Air Room Air 01/31/19 01/31/19 01/31/19 01/31/19 16:27 16:30 17:30 19:35 Temp 97.7 97.7 Pulse 83 Resp 18 B/P (MAP) 124/71 (88) Pulse Ox 100 100 93 O2 Delivery Room Air Room Air Room Air O2 Flow Rate 93.0 93.0 01/31/19 01/31/19 01/31/19 01/31/19 19:45 19:59 20:03 22:34 Resp 20 20 O2 Delivery Room Air Room Air Room Air Room Air 01/31/19 02/01/19 02/01/19 02/01/19 23:37 00:27 01:27 03:32 Temp 98.3 98.4 98.3 98.4 Pulse 82 94 Resp 18 20 20 16 B/P (MAP) 132/63 (86) 127/67 (87) Pulse Ox 91 91 O2 Delivery Room Air Room Air Room Air 02/01/19 02/01/19 02/01/1902/01/19 03:33 03:38 04:03 06:48 Resp 20 20 20 O2 Delivery Room Air Room Air Room Air 02/01/19 02/01/19 02/01/19 02/01/19 07:00 07:29 08:20 08:44 Temp 98.7 98.7 Pulse 70 Resp 18 B/P (MAP) 142/67 (92) Pulse Ox 95 95 O2 Delivery Room Air Room Air Room Air Room Air 02/01/19 02/01/19 08:45 10:52 Pulse Ox 95 O2 Delivery Room Air Room Air O2 Flow Rate 93.0 Intake and Output 01/31/19 01/31/19 02/01/19 15:00 23:00 07:00 Intake Total 420 ml 300 ml 1860 ml Balance 420 ml 300 ml 1860 ml LUCIO ANDINO III DO Feb 01, 2019 12:45
--- NOTE | 2019-02-02 19:27 | DS ---
DATE OF DISCHARGE: 02/01/2019 ADMISSION DIAGNOSES: Bilateral lower extremity cellulitis, rhabdomyolysis. DISCHARGE DIAGNOSES: Resolving cellulitis and resolving rhabdomyolysis. CONSULTS: None. PROCEDURES: None. HOSPITAL COURSE: The patient is a pleasant 53-year-old female, who presented with bilateral cellulitis to the lower extremities. It was quite erythematous, warm, swollen and her CPK level was actually high as well at 4208. She was admitted. We gave her IV fluids, IV antibiotics. We did wound care, occupational therapy, physical therapy. We continued her home meds and DVT prophylaxis. Yesterday, I saw her and examined her in the morning. Her heart tones were normal. Her lungs were clear. Abdomen was soft. Extremities had improved tremendously. We discharged to home with close outpatient followup on p.o. Augmentin. DISPOSITION: Home. ACTIVITY: As tolerated. DIET: Low sodium. MEDICATIONS: We resumed her previous home medications and added Augmentin 875 p.o. b.i.d. and Lortab 5 q. 6 hours p.r.n. with a prescription for #30. TOTAL TIME: 31 minutes. LUCIO ANDINO DO DR: PAO/liliya JOB#: [id number] / [id number]
== END 2019-02-01 11:30 | disposition home or self-care (01) | DRG 871 ==
LOC: ER 11:44 → 4 NORTH 12:48
PROVIDERS: ADMIT Internal Medicine; ATTEND Internal Medicine
DX: A41.9 Sepsis, unspecified organism (principal); N17.0 Acute kidney failure with tubular necrosis; L03.115 Cellulitis of right lower limb; M62.82 Rhabdomyolysis; E87.1 Hypo-osmolality and hyponatremia; E87.2 Acidosis; Z68.42 Body mass index [BMI] 45.0-49.9, adult; L03.116 Cellulitis of left lower limb; E78.00 Pure hypercholesterolemia, unspecified; E78.5 Hyperlipidemia, unspecified; G89.29 Other chronic pain; I95.9 Hypotension, unspecified; M19.90 Unspecified osteoarthritis, unspecified site; B35.9 Dermatophytosis, unspecified; K21.9 Gastro-esophageal reflux disease without esophagitis; E66.9 Obesity, unspecified; F17.210 Nicotine dependence, cigarettes, uncomplicated; F32.9 Major depressive disorder, single episode, unspecified; F41.9 Anxiety disorder, unspecified; G62.9 Polyneuropathy, unspecified; J44.9 Chronic obstructive pulmonary disease, unspecified; Z87.01 Personal history of pneumonia (recurrent); Z82.49 Family history of ischemic heart disease and other diseases of the circulatory system; Z82.5 Family history of asthma and other chronic lower respiratory diseases; Z83.49 Family history of other endocrine, nutritional and metabolic diseases; Z79.899 Other long term (current) drug therapy
CPT/HCPCS: 36415; 71045; 80048; 80053; 82550; 82553; 83605; 83735; 83880; 84484; 85025; 85610; 85730; 87040; 93005; 93970; 94640; 94760; 96365; 96368; 96375; J0696; J2270; J2543; J3010; J3370; J7030; J7040; J7613; J7626; 99285-25

== ENCOUNTER 2019-04-12 14:27 | Emergency (ER) | payer MEDICAID, OTHER ==
[~2019-04-12] VITALS: Ht 165.1 cm; Wt 127.0 kg
[~2019-04-12 14:27] MED LIST changes: +FLUC200T4 PO; +HYDR-2759 PO; +LIDO700A21 TD; -LIDO700A39 TD; +LINE600T PO
--- NOTE | 2019-04-12 16:28 | PHYS DOC ---
Past Medical History Past Medical History: COPD, Depression, GERD, High Cholesterol, Pneumonia, Sciatica, Other Additional Past Medical Histor: chronic pain, CELLULITIS Past Surgical History: Other Additional Past Surgical Histo: back, left arm Alcohol Use: None Drug Use: None Adult General Chief Complaint Chief Complaint: CHEST PAIN HPI HPI Patient is a 53 year old female with history of high cholesterol, depression, COPD, nonsmoker, who presents to the ED today complaining of sharp intermittent 9 out of 10 left-sided chest pain nonradiating in nature with shortness of breath that has been going on for 3 days. Patient denies anything specifically exacerbating or relieving the pain. She is also complaining of chronic 9 out of 10 throbbing bilateral low back pain radiating to bilateral lower extremities. Patient denies any known injury. Denies any loss of bowel bladder function. States most of the pain on her back is on movement. Review of Systems Review of Systems Constitutional: Denies fever or chills [] Eyes: Denies change in visual acuity, redness, or eye pain [] HENT: Denies nasal congestion or sore throat [] Respiratory: Denies cough or shortness of breath [] Cardiovascular: Reports chest pain GI: Denies abdominal pain, nausea, vomiting, bloody stools or diarrhea [] : Denies dysuria or hematuria [] Musculoskeletal: Reports low back pain Integument: Denies rash or skin lesions [] Neurologic: Denies headache, focal weakness or sensory changes [] All other systems were reviewed and found to be within normal limits, except as documented in this note. Current Medications Current Medications Current Medications Medications (Trade) Dose Ordered Sig/[facility] Start Time Stop Time Status Last Admin Dose Admin Aspirin (Anthony Aspirin) 325 mg 1X ONCE 04/12/19 16:30 04/12/19 16:31 DC 04/12/19 17:09 325 MG Diazepam (Valium) 5 mg 1X ONCE 04/12/19 16:30 04/12/19 16:31 DC 04/12/19 17:09 5 MG Morphine Sulfate (Morphine Sulfate) 2 mg PRN Q15MIN PRN 04/12/19 16:30 04/13/19 16:29 04/12/19 18:47 2 MG Nitroglycerin (Nitrostat) 0.4 mg PRN Q5MIN PRN 04/12/19 16:30 04/13/19 16:29 04/12/19 17:09 0.4 MG Allergies Allergies Allergies Coded Allergies Type Severity Reaction Last Updated Verified ibuprofen Allergy Intermediate rash, TOLERATES KETOROLAC 04/08/18 Yes naproxen Allergy Intermediate rash, TOLERATES KETOROLAC 04/08/18 Yes Physical Exam Physical Exam Constitutional: Well developed, well nourished, no acute distress, non-toxic appearance. [] HENT: Normocephalic, atraumatic, bilateral external ears normal, oropharynx moist, no oral exudates, nose normal. [] Eyes: PERRLA, EOMI, conjunctiva normal, no discharge. [] Neck: Normal range of motion, no tenderness, supple, no stridor. [] Cardiovascular:Heart rate regular rhythm, no murmur [] Lungs & Thorax: Bilateral breath sounds clear to auscultation [] Abdomen: Bowel sounds normal, soft, no tenderness, no masses, no pulsatile masses. [] Skin: Warm, dry, no erythema, no rash. [] Back: Diffuse paraspinal muscle tenderness bilateral lumbar spine, no midline lumbar spine tenderness, no CVA tenderness. [] Extremities: No tenderness, no cyanosis, no clubbing, ROM intact, no edema. [] Neurologic: Alert and oriented X 3, normal motor function, normal sensory function, no focal deficits noted. [] Psychologic: Affect normal, judgement normal, mood normal. [] Current Patient Data Vital Signs Vital Signs Date Time Temp Pulse Resp B/P (MAP) Pulse Ox O2 Delivery O2 Flow Rate FiO2 04/12/19 18:47 Room Air 04/12/19 17:09 100 04/12/19 17:09 79 103/55 04/12/19 16:30 98.3 14 98.3 Lab Values Laboratory Tests Test 04/12/19 16:35 04/12/19 17:05 04/12/19 17:10 Sodium Level 138 mmol/L (136-145) Potassium Level 3.9 mmol/L (3.5-5.1) Chloride Level 102 mmol/L (98-107) Carbon Dioxide Level 31 mmol/L (21-32) Anion Gap 5 (6-14) L Blood Urea Nitrogen 14 mg/dL (7-20) Creatinine 0.8 mg/dL (0.6-1.0) Estimated GFR (Cockcroft-Gault) 75.0 BUN/Creatinine Ratio 18 (6-20) Glucose Level 89 mg/dL (70-99) Calcium Level 8.5 mg/dL (8.5-10.1) Magnesium Level 2.1 mg/dL (1.8-2.4) Total Bilirubin 0.2 mg/dL (0.2-1.0) Aspartate Amino Transferase (AST) 10 U/L (15-37) L Alanine Aminotransferase (ALT) 21 U/L (14-59) Alkaline Phosphatase 85 U/L (46-116) Creatine Kinase 37 U/L (26-192) Creatine Kinase MB (Mass) 0.7 ng/mL (0.0-3.6) Creatine Kinase MB Relative Index 1.9 % (0-4) Troponin I Quantitative < 0.017 ng/mL (0.000-0.055) HL-Rmw-S-Type Natriuretic Peptide 79 pg/mL (0-124) Total Protein 6.7 g/dL (6.4-8.2) Albumin 3.1 g/dL (3.4-5.0) L Albumin/Globulin Ratio 0.9 (1.0-1.7) L Thyroid Stimulating Hormone (TSH) 1.047 uIU/mL (0.358-3.74) White Blood Count 7.8 x10^3/uL (4.0-11.0) Red Blood Count 3.98 x10^6/uL (3.50-5.40) Hemoglobin 11.2 g/dL (12.0-15.5) L Hematocrit 34.4 % (36.0-47.0) L Mean Corpuscular Volume 86 fL (79-100) Mean Corpuscular Hemoglobin 28 pg (25-35) Mean Corpuscular Hemoglobin Concent 33 g/dL (31-37) Red Cell Distribution Width 17.5 % (11.5-14.5) H Platelet Count 304 x10^3/uL (140-400) Neutrophils (%) (Auto) 59 % (31-73) Lymphocytes (%) (Auto) 30 % (24-48) Monocytes (%) (Auto) 6 % (0-9) Eosinophils (%) (Auto) 4 % (0-3) H Basophils (%) (Auto) 1 % (0-3) Neutrophils # (Auto) 4.6 x10^3uL (1.8-7.7) Lymphocytes # (Auto) 2.3 x10^3/uL (1.0-4.8) Monocytes # (Auto) 0.5 x10^3/uL (0.0-1.1) Eosinophils # (Auto) 0.3 x10^3/uL (0.0-0.7) Basophils # (Auto) 0.1 x10^3/uL (0.0-0.2) D-Dimer (Rosina) < 0.27 ug/mlFEU Urine Collection Type Unknown Urine Color Yellow Urine Clarity Clear Urine pH 6.5 Urine Specific [place] 1.020 Urine Protein Negative mg/dL (NEG-TRACE) Urine Glucose (UA) Negative mg/dL (NEG) Urine Ketones (Stick) Negative mg/dL (NEG) Urine Blood Negative (NEG) Urine Nitrite Negative (NEG) Urine Bilirubin Negative (NEG) Urine Urobilinogen Dipstick 0.2 mg/dL (0.2 mg/dL) Urine Leukocyte Esterase Negative (NEG) Urine RBC Occ /HPF (0-2) Urine WBC 0 /HPF (0-4) Urine Squamous Epithelial Cells Few /LPF Urine Bacteria 0 /HPF (0-FEW) Urine Mucus Slight /LPF Urine Opiates Screen Neg (NEG) Urine Methadone Screen Neg (NEG) Urine Barbiturates Neg (NEG) Urine Phencyclidine Screen Neg (NEG) Urine Amphetamine/Methamphetamine Neg (NEG) Urine Benzodiazepines Screen Neg (NEG) Urine Cocaine Screen Neg (NEG) Urine Cannabinoids Screen Neg (NEG) Urine Ethyl Alcohol Neg (NEG) Laboratory Tests 04/12/19 17:05 Laboratory Tests 04/12/19 16:35 EKG EKG 16:[address] Manning sinus rhythm HR 80 no STEMI[] Radiology/Procedures Radiology/Procedures []PROCEDURE: PORTABLE CHEST 1V AP portable chest radiograph 04/12/2019 Clinical History: Chest pain. An AP erect portable digital radiograph of the chest was obtained. Comparison study is dated 01/29/2019. The cardiac silhouette is mildly enlarged. The thoracic aorta is mildly tortuous. Left basilar subsegmental atelectasis is seen. No acute pulmonary infiltrate is noted. No pneumothorax or pleural effusion is seen. Degenerative changes are seen involving the thoracic spine. IMPRESSION: No acute abnormality is seen. Electronically signed by: Lopez Sims MD (04/12/2019 4:51 PM) [facility] DICTATED and SIGNED BY: LOPEZ SIMS MD DATE: 04/12/191650 Course & Med Decision Making Course & Med Decision Making Pertinent Labs and Imaging studies reviewed. (See chart for details) This is a 53-year-old female patient presenting to the ED today with chest pain for 3 days as well as chronic low back pain. Patient's cardiac workup is negative including d-dimer. Her pain is currently almost gone. I talked to patient about admission versus being discharged. She is requesting to be discharged if i can give her some pain medicine. Patient is well known to this ED for drug seeking behavior. I offered the cyclobenzaprine and diclofenac and discharged her to home. I do not believe her chest pain today is cardiac in origin. We have seen her multiple times for chest pain and she has had cardiac workup related to this pain before which was negative. Dragon Disclaimer Dragon Disclaimer This electronic medical record was generated, in whole or in part, using a voice recognition dictation system. The HEART Score for CP Pts HEART Score for Chest Pain: HEART Score for Chest Pain Response (Comments) Value History Slighlty/Non-Suspicious 0 ECG Normal 0 Age >45 - < 65 1 Risk Factors 1 or 2 Risk Factors 1 Troponin < Normal Limit 0 Total 2 Risk Factors: Risk Factors: DM, Current or recent (<one month) smoker, HTN, HLP, family history of CAD, obesity. Risk Scores: Score 0 - 3: 2.5% MACE over next 6 weeks - Discharge Home Score 4 - 6: 20.3% MACE over next 6 weeks - Admit for Clinical Observation Score 7 - 10: 72.7% MACE over next 6 weeks - Early Invasive Strategies Departure Departure Impression: Primary Impression: Chest pain Additional Impression: Chronic low back pain Disposition: HOME, SELF-CARE Condition: STABLE Referrals: NO PCP (PCP) JAZMINE ARROYO MD follow up in 1-2 days Patient Instructions: Back Pain, Adult, [id number], Chest Pain (Nonspecific)- Brief Additional Instructions: You were evaluated in the emergency Wednesday workup is negative for any acute findings. Please follow-up with your own doctor in the course of this week or next week. Also follow-up with the provided research intern. Scripts Cyclobenzaprine Hcl (CYCLOBENZAPRINE HCL) 10 Mg Tablet 1 TAB PO TID, #30 TAB Prov: MEMO NELSON APRN 04/12/19 Diclofenac Sodium (DICLOFENAC SODIUM) 50 Mg Tablet.dr 1 TAB PO BID, #20 TAB 0 Refills Prov: MEMO NELSON APRN 04/12/19 Problem Qualifiers Primary Impression: Chest pain Chest pain type: unspecified Qualified Codes: R07.9 - Chest pain, unspecified Additional Impression: Chronic low back pain Back pain laterality: bilateral Sciatica presence: with sciatica Sciatica laterality: bilateral sciatica Qualified Codes: M54.42 - Lumbago with sciatica, left side; M54.41 - Lumbago with sciatica, right side; G89.29 - Other chronic pain MEMO NELSON APRN Apr 12, 2019 16:28
[2019-04-12] MEDS ORDERED: ASPIRIN 325 MG TABLET PO ONE (16:30)
[2019-04-12] MEDS ORDERED: NITROGLYCERIN SUBLINGUAL 0.4 MG BOTTLE OF 25. SL PRN (16:30)
[2019-04-12] MEDS ORDERED: diazePAM 5 MG TABLET PO ONE (16:30)
--- NOTE | 2019-04-12 16:54 | RAD ---
AP portable chest radiograph 04/12/2019 Clinical History: Chest pain. An AP erect portable digital radiograph of the chest was obtained. Comparison study is dated 01/29/2019. The cardiac silhouette is mildly enlarged. The thoracic aorta is mildly tortuous. Left basilar subsegmental atelectasis is seen. No acute pulmonary infiltrate is noted. No pneumothorax or pleural effusion is seen. Degenerative changes are seen involving the thoracic spine. IMPRESSION: No acute abnormality is seen. Electronically signed by: Lopez Sims MD (04/12/2019 4:51 PM) [facility]
[2019-04-12] MEDS: MORPHINE SULFATE 2 MG/ML VIAL. IV/SQ PRN ×2 (17:09→18:47)
[2019-04-12 17:14] LABS: BASO # 0.1 x10^3/uL (0.0-0.2); BASO % 1 % (0-3); EOS # 0.3 x10^3/uL (0.0-0.7); EOS % 4 % (0-3); HEMATOCRIT 34.4 % (36.0-47.0); HEMOGLOBIN 11.2 g/dL (12.0-15.5); LYMPH # 2.3 x10^3/uL (1.0-4.8); LYMPH % 30 % (24-48); MEAN CORPUSCULAR HEMOGLOBIN 28 pg (25-35); MEAN CORPUSCULAR HGB CONC 33 g/dL (31-37); MEAN CORPUSCULAR VOLUME 86 fL (79-100); MONO # 0.5 x10^3/uL (0.0-1.1); MONO % 6 % (0-9); NEUT # 4.6 x10^3uL (1.8-7.7); NEUT % 59 % (31-73); PLATELET COUNT 304 x10^3/uL (140-400); RED BLOOD COUNT 3.98 x10^6/uL (3.50-5.40); RED CELL DISTRIBUTION WIDTH 17.5 % (11.5-14.5); WHITE BLOOD COUNT 7.8 x10^3/uL (4.0-11.0)
[2019-04-12 17:18] LABS: BILIRUBIN,URINE NEGATIVE (NEG); CLARITY,URINE CLEAR; COLOR,URINE YELLOW; NITRITE,URINE NEGATIVE (NEG); PH,URINE 6.5; PROTEIN,URINE NEGATIVE (NEG-TRACE); UROBILINOGEN,URINE 0.2 mg/dL (0.2 mg/dL)
[2019-04-12 17:24] LABS: BARBITURATES NEG (NEG); BENZODIAZEPINES NEG (NEG); CANNABINOIDS NEG (NEG); COCAINE NEG (NEG); METHADONE NEG (NEG); OPIATES NEG (NEG); PHENCYCLIDINE NEG (NEG)
[2019-04-12 17:25] LABS: BACTERIA,URINE 0 /HPF (0-FEW); RBC,URINE OCC /HPF (0-2); SQUAMOUS EPITHELIAL CELL,UR FEW /LPF; WBC,URINE 0 /HPF (0-4)
[2019-04-12 17:26] LABS: AMPHETAMINE/METHAMPHETAMINE NEG (NEG)
[2019-04-12 17:33] LABS: CALCIUM 8.5 mg/dL (8.5-10.1); CREATININE 0.8 mg/dL (0.6-1.0); POTASSIUM 3.9 mmol/L (3.5-5.1)
[2019-04-12 17:39] LABS: ALBUMIN 3.1 g/dL (3.4-5.0); ALBUMIN/GLOBULIN RATIO 0.9 (1.0-1.7); MAGNESIUM 2.1 mg/dL (1.8-2.4); TOTAL BILIRUBIN 0.2 mg/dL (0.2-1.0); TOTAL PROTEIN 6.7 g/dL (6.4-8.2)
--- NOTE | 2019-04-12 18:24 | EKG ---
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
[2019-04-12] MEDS ORDERED: CYCL10TA2 PO (18:57)
[2019-04-12] MEDS ORDERED: DICL50TA4 PO (18:57)
[2019-04-12 19:05] VITALS: BP 105/72
== END 2019-04-12 19:09 | disposition home or self-care (01) ==
LOC: ER 14:27
DX: G89.29 Other chronic pain (principal); M54.41 Lumbago with sciatica, right side; M54.42 Lumbago with sciatica, left side; R07.89 Other chest pain; K21.9 Gastro-esophageal reflux disease without esophagitis; E78.00 Pure hypercholesterolemia, unspecified; J44.9 Chronic obstructive pulmonary disease, unspecified; Z98.890 Other specified postprocedural states; Z88.5 Allergy status to narcotic agent; Z88.8 Allergy status to other drugs, medicaments and biological substances
CPT/HCPCS: 36415; 71045; 80053; 80307; 81001; 82553; 83735; 83880; 84443; 84484; 85025; 85379; 93005; 96374; 96376; 99285; J2270

== ENCOUNTER 2019-04-13 13:07 | Emergency (ER) | payer MEDICAID ==
[~2019-04-13] VITALS: Ht 157.5 cm; Wt 90.7 kg
[2019-04-13 13:28] VITALS: BP 116/83
--- NOTE | 2019-04-13 13:37 | PHYS DOC ---
Past Medical History Past Medical History: COPD, Depression, GERD, High Cholesterol, Pneumonia, Sciatica, Other Additional Past Medical Histor: chronic pain, CELLULITIS Past Surgical History: Other Additional Past Surgical Histo: back, left arm Alcohol Use: None Drug Use: None Adult General Chief Complaint Chief Complaint: CHEST PAIN HPI HPI Patient is a 53 year old female presents with chest pain located in the midsternal region that is reproducible this been ongoing for 5 days. She was seen in this ER yesterday and had a full cardiac workup done. Labs were unremarkable yesterday, and had a negative troponin yesterday, and had negative d-dimer done yesterday, and had negative chest x-ray. States that her pain is 9/10 and throbbing. Patient has been seen in this ER numerous times and is r equesting pain medication. Review of Systems Review of Systems Constitutional: Denies fever or chills [] Eyes: Denies change in visual acuity, redness, or eye pain [] HENT: Denies nasal congestion or sore throat [] Respiratory: Denies cough or shortness of breath [] Cardiovascular: Reports midsternal chest pain. GI: Denies abdominal pain, nausea, vomiting, bloody stools or diarrhea [] : Denies dysuria or hematuria [] Musculoskeletal: Reports chronic back pain denies joint pain [] Integument: Denies rash or skin lesions [] Neurologic: Denies headache, focal weakness or sensory changes [] Endocrine: Denies polyuria or polydipsia [] Complete systems were reviewed and found to be within normal limits, except as documented in this note. Allergies Allergies Allergies Coded Allergies Type Severity Reaction Last Updated Verified ibuprofen Allergy Intermediate rash, TOLERATES KETOROLAC 04/08/18 Yes naproxen Allergy Intermediate rash, TOLERATES KETOROLAC 04/08/18 Yes Physical Exam Physical Exam Constitutional: Well developed, well nourished, no acute distress, non-toxic appearance. [] HENT: Normocephalic, atraumatic, bilateral external ears normal, oropharynx moist, no oral exudates, nose normal. [] Eyes: PERRLA, EOMI, conjunctiva normal, no discharge. [] Neck: Normal range of motion, no tenderness, supple, no stridor. [] Cardiovascular:Heart rate regular rhythm, no murmur, reproducible pain on palpation to the midsternal region of heart. Lungs & Thorax: Bilateral breath sounds clear to auscultation [] Abdomen: Bowel sounds normal, soft, no tenderness, no masses, no pulsatile masses. [] Skin: Warm, dry, no erythema, no rash. [] Back: No tenderness, no CVA tenderness. [] Extremities: No tenderness, no cyanosis, no clubbing, ROM intact, no edema. [] Neurologic: Alert and oriented X 3, normal motor function, normal sensory function, no focal deficits noted. [] Psychologic: Affect normal, judgement normal, mood normal. [] EKG EKG EKG interpreted by Dr. Nigel Leiva with rate of 88, No STEMI.[] Radiology/Procedures Radiology/Procedures [] Course & Med Decision Making Course & Med Decision Making Pertinent Labs and Imaging studies reviewed. (See chart for details) Patient has been seen in this facility multiple times. Patient was seen for chest pain yesterday with negative workup. Patient states symptoms have been ongoing for 5 days and have not changed. Pain is reproducible on palpation. Patient is asking for narcotics the entire time I was in the room and appears to be narcotic seeking. Patient has a history of this at this facility. EKG is negative. Appears to be musculoskeletal in nature. Will d/c home to follow up with primary care and pain management. Dragon Disclaimer Dragon Disclaimer This electronic medical record was generated, in whole or in part, using a voice recognition dictation system. Departure Departure Impression: Primary Impression: Musculoskeletal chest pain Additional Impression: Drug-seeking behavior Disposition: HOME, SELF-CARE Condition: STABLE Referrals: NO PCP (PCP) JACLYN HANDY MD Patient Instructions: Costochondritis Additional Instructions: Thank you for visiting [facility]. We appreciate you trusting us with your care. If any additional problems come up don't hesitate to return to visit us. Please follow up with your primary care provider so they can plan additional care if needed and know about the problem that you had. If symptoms worsen come back to the Emergency Department. Any concerning symptoms that start such as chest pain, shortness of air, weakness or numbness on one side of the body, running high fevers or any other concerning symptoms return to the ER. Please follow up with a primary care doctor and with Dr. Handy at pain management. Problem Qualifiers MARIA D ROSAS APRN Apr 13, 2019 13:37
--- NOTE | 2019-04-14 07:33 | EKG ---
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
== END 2019-04-13 13:44 | disposition home or self-care (01) ==
LOC: ER 13:07
DX: R07.89 Other chest pain (principal); Z76.5 Malingerer [conscious simulation]; J44.9 Chronic obstructive pulmonary disease, unspecified; F32.9 Major depressive disorder, single episode, unspecified; K21.9 Gastro-esophageal reflux disease without esophagitis; E78.00 Pure hypercholesterolemia, unspecified; G89.29 Other chronic pain; M54.9 Dorsalgia, unspecified; Z88.6 Allergy status to analgesic agent; Z88.8 Allergy status to other drugs, medicaments and biological substances
CPT/HCPCS: 93005; 99283

== ENCOUNTER 2019-05-01 16:54 | Emergency (ER) | payer MEDICAID ==
[~2019-05-01] VITALS: Ht 165.1 cm; Wt 108.0 kg
[2019-05-01 17:31] VITALS: BP 183/100
[2019-05-01] MEDS ORDERED: LIDOCAINE (700MG/PATCH) PATCH. TD ONE (18:00)
[2019-05-01] MEDS ORDERED: ACETAMINOPHEN 325 MG TABLET. PO ONE (18:00)
--- NOTE | 2019-05-01 19:05 | PHYS DOC ---
Past Medical History Past Medical History: COPD, Depression, GERD, High Cholesterol, Pneumonia, Sciatica, Other Additional Past Medical Histor: chronic pain, CELLULITIS Past Surgical History: Other Additional Past Surgical Histo: back, left arm Alcohol Use: None Drug Use: None Adult General Chief Complaint Chief Complaint: BACK PAIN OR INJURY [facility] HPI Patient is a 53 year old [f__sex] who presents with [] Review of Systems Review of Systems Constitutional: Denies fever or chills [] Eyes: Denies change in visual acuity, redness, or eye pain [] HENT: Denies nasal congestion or sore throat [] Respiratory: Denies cough or shortness of breath [] Cardiovascular: No additional information not addressed in HPI [] GI: Denies abdominal pain, nausea, vomiting, bloody stools or diarrhea [] : Denies dysuria or hematuria [] Musculoskeletal: Denies back pain or joint pain [] Integument: Denies rash or skin lesions [] Neurologic: Denies headache, focal weakness or sensory changes [] Endocrine: Denies polyuria or polydipsia [] All other systems were reviewed and found to be within normal limits, except as documented in this note. Current Medications Current Medications Current Medications Medications (Trade) Dose Ordered Sig/[facility] Start Time Stop Time Status Last Admin Dose Admin Acetaminophen (Tylenol) 650 mg 1X ONCE 05/01/19 18:00 05/01/19 18:01 DC 05/01/19 18:47 650 MG Lidocaine (Lidoderm) 1 patch 1X ONCE 05/01/19 18:00 05/01/19 18:01 DC 05/01/19 18:47 1 PATCH Allergies Allergies Allergies Coded Allergies Type Severity Reaction Last Updated Verified ibuprofen Allergy Intermediate rash, TOLERATES KETOROLAC 04/08/18 Yes naproxen Allergy Intermediate rash, TOLERATES KETOROLAC 04/08/18 Yes Physical Exam Physical Exam Constitutional: Well developed, well nourished, no acute distress, non-toxic appearance. [] HENT: Normocephalic, atraumatic, bilateral external ears normal, oropharynx moist, no oral exudates, nose normal. [] Eyes: PERRLA, EOMI, conjunctiva normal, no discharge. [] Neck: Normal range of motion, no tenderness, supple, no stridor. [] Cardiovascular:Heart rate regular rhythm, no murmur [] Lungs & Thorax: Bilateral breath sounds clear to auscultation [] Abdomen: Bowel sounds normal, soft, no tenderness, no masses, no pulsatile masses. [] Skin: Warm, dry, no erythema, no rash. [] Back: No tenderness, no CVA tenderness. [] Extremities: No tenderness, no cyanosis, no clubbing, ROM intact, no edema. [] Neurologic: Alert and oriented X 3, normal motor function, normal sensory function, no focal deficits noted. [] Psychologic: Affect normal, judgement normal, mood normal. [] Current Patient Data Vital Signs Vital Signs Date Time Temp Pulse Resp B/P (MAP) Pulse Ox O2 Delivery O2 Flow Rate FiO2 05/01/19 17:31 98.5 91 22 183/100 (127) 99 Room Air 98.5 EKG EKG [] Radiology/Procedures Radiology/Procedures [] Course & Med Decision Making Course & Med Decision Making Pertinent Labs and Imaging studies reviewed. (See chart for details) [] Dragon Disclaimer Dragon Disclaimer This electronic medical record was generated, in whole or in part, using a voice recognition dictation system. Departure Departure Impression: Primary Impression: Back pain Additional Impression: Fall Disposition: 01 HOME, SELF-CARE Condition: STABLE Referrals: NO PCP (PCP) Patient Instructions: Back Pain, Adult, Fall Prevention and Home Safety Additional Instructions: Tylenol as needed for pain as directed on container. Ice and/or heat compress to affected area every 3-4 hours for 20-30 minutes at a time. If symptoms persist follow-up with your primary care physician for reevaluation and further care. Problem Qualifiers GAIL HEART APRN May 01, 2019 19:04
--- NOTE | 2019-05-02 06:12 | RAD ---
LUMBAR SPINE 2-3V Clinical Indication: Fall yesterday, mid lumbar and right lower back pain. Comparison: Lumbar spine, 3 views, December 11, 2018. Findings: AP view is nondiagnostic due to motion artifact. Degenerative endplate spurring of the lumbar spine. The vertebral body height and alignment are maintained. No acute fracture is seen. There is disc space narrowing of L2/L3, L1/L2, and L5/S1. Lower lumbar facet hypertrophy. IMPRESSION: No acute fracture or malalignment. Electronically signed by: Brendan Rosenthal MD (05/02/2019 6:10 AM) [id number]
== END 2019-05-01 19:18 | disposition home or self-care (01) ==
LOC: ER 16:54
DX: M54.5 Low back pain (principal); G89.11 Acute pain due to trauma; J44.9 Chronic obstructive pulmonary disease, unspecified; E78.00 Pure hypercholesterolemia, unspecified; K21.9 Gastro-esophageal reflux disease without esophagitis; G89.29 Other chronic pain; Z88.5 Allergy status to narcotic agent; Z88.8 Allergy status to other drugs, medicaments and biological substances; W18.2XXA Fall in (into) shower or empty bathtub, initial encounter; Y93.E1 Activity, personal bathing and showering; Y92.091 Bathroom in other non-institutional residence as the place of occurrence of the external cause; Y99.8 Other external cause status
CPT/HCPCS: 72100; 99284

== ENCOUNTER 2020-03-20 19:10 | Emergency (ER) | payer SELFPAY ==
[~2020-03-20] VITALS: Ht 167.6 cm; Wt 90.9 kg
[~2020-03-20 19:10] MED LIST changes: +CLON-77 PO; -CLON0.5T11 PO; -CLON1TAB11 PO; +CLONAZEPAM1 MG PO; -LINE600T PO; +LINE600T12 PO; -OMEP20CA10 PO; +OMEP20CA16 PO; +SIMV10TA15 PO; -SIMV10TA3 PO
[2020-03-20 19:35] VITALS: BP 142/77
[2020-03-20 20:17] LABS: BASO # 0.1 x10^3/uL (0.0-0.2); BASO % 1 % (0-3); EOS # 0.4 x10^3/uL (0.0-0.7); EOS % 4 % (0-3); HEMATOCRIT 38.8 % (36.0-47.0); HEMOGLOBIN 12.9 g/dL (12.0-15.5); LYMPH # 3.1 x10^3/uL (1.0-4.8); LYMPH % 32 % (24-48); MEAN CORPUSCULAR HEMOGLOBIN 30 pg (25-35); MEAN CORPUSCULAR HGB CONC 33 g/dL (31-37); MEAN CORPUSCULAR VOLUME 90 fL (79-100); MONO # 0.6 x10^3/uL (0.0-1.1); MONO % 6 % (0-9); NEUT # 5.7 x10^3/uL (1.8-7.7); NEUT % 57 % (31-73); PLATELET COUNT 333 x10^3/uL (140-400); RED BLOOD COUNT 4.32 x10^6/uL (3.50-5.40); RED CELL DISTRIBUTION WIDTH 19.2 % (11.5-14.5); WHITE BLOOD COUNT 9.9 x10^3/uL (4.0-11.0)
[2020-03-20 20:29] LABS: CALCIUM 8.7 mg/dL (8.5-10.1); CREATININE 0.9 mg/dL (0.6-1.0); GFR 65.2; POTASSIUM 3.9 mmol/L (3.5-5.1)
[2020-03-20 20:34] LABS: ALBUMIN 3.6 g/dL (3.4-5.0); TOTAL BILIRUBIN 0.3 mg/dL (0.2-1.0); TOTAL PROTEIN 7.2 g/dL (6.4-8.2)
[2020-03-20] MEDS ORDERED: DEXAMETHASONE 4 MG TABLET PO SCH (21:13)
[2020-03-20] MEDS ORDERED: diphenhydrAMINE HCL 25 MG CAPSULE PO ONE (21:15)
--- NOTE | 2020-03-20 21:18 | RAD ---
Exam: Acute abdominal series INDICATION: Abdominal pain TECHNIQUE: Frontal view of chest with upright and supine views of the abdomen Comparisons: 04/12/2019 FINDINGS: The cardiomediastinal silhouette and pulmonary vessels are within normal limits. The lung and pleural spaces are clear. Air and stool noted throughout the colon to level the rectum in a nonobstructive bowel gas pattern. No suspicious masses or calcifications. IMPRESSION: 1. No acute cardiopulmonary process. 2. Nonobstructive bowel gas pattern. Electronically signed by: Elvin Hopkins MD (03/20/2020 9:15 PM) [id number]
--- NOTE | 2020-03-20 21:23 | PHYS DOC ---
Past Medical History Past Medical History: COPD, Depression, GERD, High Cholesterol, Pneumonia, Sciatica, Other Additional Past Medical Histor: chronic pain, CELLULITIS Past Surgical History: Other Additional Past Surgical Histo: back, left arm Smoking Status: Current Every Day Smoker Alcohol Use: None Drug Use: None General Adult EDM: Chief Complaint: MULTIPLE COMPLAINTS HPI: HPI: 54 yo F presents to the ed with c/o loose, watery, nonbloody diarrhea for the past 4 days, a gradual onset headache and low back pain (atraumatic). States she' run out of her tramadol and is requesting a medical refill. Has no pmd. Denies any trauma. Review of Systems: Review of Systems: Constitutional: Denies fever or chills. [] Eyes: Denies change in visual acuity. [] HENT: Denies nasal congestion or sore throat. [] Respiratory: Denies cough or shortness of breath. [] Cardiovascular: Denies chest pain or edema. [] GI: Denies abdominal pain, nausea, vomiting, bloody stools or diarrhea. [] : Denies dysuria. [] Musculoskeletal: Denies back pain or joint pain. [] Integument: Denies rash. [] Neurologic: Denies headache, focal weakness or sensory changes. [] Endocrine: Denies polyuria or polydipsia. [] Lymphatic: Denies swollen glands. [] Psychiatric: Denies depression or anxiety. [] Heart Score: Risk Factors: Risk Factors: DM, Current or recent (<one month) smoker, HTN, HLP, family history of CAD, obesity. Risk Scores: Score 0 - 3: 2.5% MACE over next 6 weeks - Discharge Home Score 4 - 6: 20.3% MACE over next 6 weeks - Admit for Clinical Observation Score 7 - 10: 72.7% MACE over next 6 weeks - Early Invasive Strategies Current Medications: Current Medications Medications (Trade) Dose Ordered Sig/Jayy Start Time Stop Time Status Last Admin Dose Admin Dexamethasone (Decadron) 10 mg [id number] 03/20/20 21:13 Diphenhydramine HCl (Benadryl) 25 mg 1X ONCE 03/20/20 21:15 03/20/20 21:16 DC Allergies: Allergies: Allergies Coded Allergies Type Severity Reaction Last Updated Verified ibuprofen Allergy Intermediate rash, TOLERATES KETOROLAC 04/08/18 Yes naproxen Allergy Intermediate rash, TOLERATES KETOROLAC 04/08/18 Yes diclofenac Adverse Reaction Intermediate n/v 05/12/19 Yes Physical Exam: PE: Constitutional: Well developed, well nourished, no acute distress, non-toxic appearance. [] HENT: Normocephalic, atraumatic, bilateral external ears normal, oropharynx moist, no oral exudates, nose normal. [] Eyes: PERRLA, EOMI, conjunctiva normal, no discharge. [] Neck: Normal range of motion, no tenderness, supple, no stridor. [] Cardiovascular:Heart rate regular rhythm, no murmur [] Lungs & Thorax: Bilateral breath sounds clear to auscultation [] Abdomen: Bowel sounds normal, soft, no tenderness, no masses, no pulsatile masses. [] Skin: Warm, dry, no erythema, no rash. [] Back: No tenderness, no CVA tenderness. [] Extremities: No tenderness, no cyanosis, no clubbing, ROM intact, no edema. [] Neurologic: Alert and oriented X 3, normal motor function, normal sensory function, no focal deficits noted. [] Psychologic: Affect normal, judgement normal, mood normal. [] Current Patient Data: Labs: Laboratory Tests Test 03/20/20 20:08 White Blood Count 9.9 x10^3/uL (4.0-11.0) Red Blood Count 4.32 x10^6/uL (3.50-5.40) Hemoglobin 12.9 g/dL (12.0-15.5) Hematocrit 38.8 % (36.0-47.0) Mean Corpuscular Volume 90 fL (79-100) Mean Corpuscular Hemoglobin 30 pg (25-35) Mean Corpuscular Hemoglobin Concent 33 g/dL (31-37) Red Cell Distribution Width 19.2 % (11.5-14.5) H Platelet Count 333 x10^3/uL (140-400) Neutrophils (%) (Auto) 57 % (31-73) Lymphocytes (%) (Auto) 32 % (24-48) Monocytes (%) (Auto) 6 % (0-9) Eosinophils (%) (Auto) 4 % (0-3) H Basophils (%) (Auto) 1 % (0-3) Neutrophils # (Auto) 5.7 x10^3/uL (1.8-7.7) Lymphocytes # (Auto) 3.1 x10^3/uL (1.0-4.8) Monocytes # (Auto) 0.6 x10^3/uL (0.0-1.1) Eosinophils # (Auto) 0.4 x10^3/uL (0.0-0.7) Basophils # (Auto) 0.1 x10^3/uL (0.0-0.2) Sodium Level 139 mmol/L (136-145) Potassium Level 3.9 mmol/L (3.5-5.1) Chloride Level 105 mmol/L (98-107) Carbon Dioxide Level 25 mmol/L (21-32) Anion Gap 9 (6-14) Blood Urea Nitrogen 12 mg/dL (7-20) Creatinine 0.9 mg/dL (0.6-1.0) Estimated GFR (Cockcroft-Gault) 65.2 BUN/Creatinine Ratio 13 (6-20) Glucose Level 88 mg/dL (70-99) Calcium Level 8.7 mg/dL (8.5-10.1) Magnesium Level 2.0 mg/dL (1.8-2.4) Total Bilirubin 0.3 mg/dL (0.2-1.0) Aspartate Amino Transferase (AST) 11 U/L (15-37) L Alanine Aminotransferase (ALT) 19 U/L (14-59) Alkaline Phosphatase 88 U/L (46-116) Total Protein 7.2 g/dL (6.4-8.2) Albumin 3.6 g/dL (3.4-5.0) Albumin/Globulin Ratio 1.0 (1.0-1.7) Laboratory Tests 03/20/20 20:08 Laboratory Tests 03/20/20 20:08 Vital Signs: Vital Signs Date Time Temp Pulse Resp B/P (MAP) Pulse Ox O2 Delivery O2 Flow Rate FiO2 03/20/20 19:35 98.7 81 18 142/77 (98) 97 Room Air 98.7 EKG: EKG: [] Radiology/Procedures: Radiology/Procedures: IMAGING REPORT Signed PATIENT: AMADOR GLASERCOUNT: [id number] : 1965 LOCATION: ER AGE: 54 SEX: F EXAM STATUS: REG ER ORD. PHYSICIAN: GAIL LEROY DO REASON: abd pain PROCEDURE: ACUTE ABDOMEN SERIES Exam: Acute abdominal series INDICATION: Abdominal pain TECHNIQUE: Frontal view of chest with upright and supine views of the abdomen Comparisons: 04/12/2019 FINDINGS: The cardiomediastinal silhouette and pulmonary vessels are within normal limits. The lung and pleural spaces are clear. Air and stool noted throughout the colon to level the rectum in a nonobstructive bowel gas pattern. No suspicious masses or calcifications. IMPRESSION: 1. No acute cardiopulmonary process. 2. Nonobstructive bowel gas pattern. Electronically signed by: Elvin Roth MD (03/20/2020 9:15 PM) [id number] DICTATED and SIGNED BY: ELVIN ROTH MD DATE: 03/20/202114 Impression: Pt in no distress. Repeatedly asks for tramadol, reports allergies to apap/nsaids. Labs wnl. Xr normal. Low suspicion for life threatening processes at this time. Encouraged pmd follow and conservative management. All of pts' questions were answered and pt was stable at time of discharge. Course & Med Decision Making: Course & Med Decision Making Pertinent Labs and Imaging studies reviewed. (See chart for details) [] Dragon Disclaimer: Dragon Disclaimer: This electronic medical record was generated, in whole or in part, using a voice recognition dictation system. Departure Departure Impression: Primary Impression: Encounter for medication refill Additional Impressions: Headache Diarrhea Disposition: HOME, SELF-CARE Condition: STABLE Referrals: NO PCP (PCP) Patient Instructions: Diarrhea, General Headache Without Cause, Medication Refill, Emergency Department Scripts Acetaminophen (Tylenol) 325 Mg Capsule 650 MG PO Q6-8HRS PRN for PAIN for 5 Days, CAP Prov: GAIL LEROY DO 03/20/20 Justicifation of Admission Dx: Justifications for Admission: Justification of Admission Dx: N/A GAIL LEROY DO Mar 20, 2020 21:23
[2020-03-20] MEDS ORDERED: KETOROLAC 30 MG/ML VIAL. IM ONE (21:45)
[2020-03-20] MEDS ORDERED: ACET325C6 PO (21:55)
== END 2020-03-20 21:59 | disposition home or self-care (01) ==
LOC: ER 19:10
DX: R51 Headache (principal); R19.7 Diarrhea, unspecified; Z76.0 Encounter for issue of repeat prescription; M54.5 Low back pain; F32.9 Major depressive disorder, single episode, unspecified; J44.1 Chronic obstructive pulmonary disease with (acute) exacerbation; K21.9 Gastro-esophageal reflux disease without esophagitis; E78.00 Pure hypercholesterolemia, unspecified; G89.29 Other chronic pain; F17.200 Nicotine dependence, unspecified, uncomplicated; Z88.5 Allergy status to narcotic agent; Z88.8 Allergy status to other drugs, medicaments and biological substances
CPT/HCPCS: 36415; 74022; 80053; 83735; 85025; 96372; 99284; J1885; J8540; 99285-25; Q0163

== ENCOUNTER 2020-04-02 09:41 | Emergency (ER) | payer SELFPAY ==
[~2020-04-02] VITALS: Ht 162.6 cm; Wt 90.0 kg
[~2020-04-02 09:41] MED LIST changes: +ACET325C6 PO
[2020-04-02 09:47] VITALS: BP 144/93
[2020-04-02] MEDS ORDERED: METH-38 PO (10:17)
--- NOTE | 2020-04-02 10:17 | PHYS DOC ---
Past Medical History Past Medical History: COPD, Depression, GERD, High Cholesterol, Pneumonia, Sciatica, Other Additional Past Medical Histor: chronic pain, CELLULITIS Past Surgical History: Other Additional Past Surgical Histo: back, left arm Smoking Status: Current Every Day Smoker Alcohol Use: None Drug Use: None General Adult EDM: Chief Complaint: Neck Pain HPI: HPI: Patient is a 54-year-old female well-known to our emergency department who presents with chronic neck pain. She states she is out of medication. She just moved back to the area. She denies any radicular symptoms. She denies any fever or headache. She states the pain is much worse when she tries to move around. [] Review of Systems: Review of Systems: Constitutional: Denies fever or chills. [] Eyes: Denies change in visual acuity. [] HENT: Denies nasal congestion or sore throat. [] Respiratory: Denies cough or shortness of breath. [] Cardiovascular: Denies chest pain or edema. [] GI: Denies abdominal pain, nausea, vomiting, bloody stools or diarrhea. [] : Denies dysuria. [] Musculoskeletal: Reports neck pain [] Integument: Denies rash. [] Neurologic: Denies headache, focal weakness or sensory changes. [] Endocrine: Denies polyuria or polydipsia. [] Lymphatic: Denies swollen glands. [] Psychiatric: Reports depression and anxiety [] Heart Score: Risk Factors: Risk Factors: DM, Current or recent (<one month) smoker, HTN, HLP, family history of CAD, obesity. Risk Scores: Score 0 - 3: 2.5% MACE over next 6 weeks - Discharge Home Score 4 - 6: 20.3% MACE over next 6 weeks - Admit for Clinical Observation Score 7 - 10: 72.7% MACE over next 6 weeks - Early Invasive Strategies Allergies: Allergies: Allergies Coded Allergies Type Severity Reaction Last Updated Verified ibuprofen Allergy Intermediate rash, TOLERATES KETOROLAC 04/08/18 Yes naproxen Allergy Intermediate rash, TOLERATES KETOROLAC 04/08/18 Yes diclofenac Adverse Reaction Intermediate n/v 05/12/19 Yes Physical Exam: PE: Constitutional: Well developed, well nourished, mild distress, non-toxic appe arance. [] HENT: Normocephalic, atraumatic, bilateral external ears normal, oropharynx moist, no oral exudates, nose normal. [] Eyes: PERRLA, EOMI, conjunctiva normal, no discharge. [] Neck: Normal range of motion, no tenderness, supple, no stridor. [] Cardiovascular:Heart rate regular rhythm, no murmur [] Lungs & Thorax: Bilateral breath sounds clear to auscultation [] Abdomen: Bowel sounds normal, soft, no tenderness, no masses, no pulsatile masses. [] Skin: Warm, dry, no erythema, no rash. [] Back: Cervical paraspinal muscle spasm no midline tenderness [] Extremities: No tenderness, no cyanosis, no clubbing, ROM intact, no edema. [] Neurologic: Alert and oriented X 3, normal motor function, normal sensory function, no focal deficits noted. [] Psychologic: Anxious [] Current Patient Data: Vital Signs: Vital Signs Date Time Temp Pulse Resp B/P (MAP) Pulse Ox O2 Delivery O2 Flow Rate FiO2 04/02/20 09:47 98.6 97 20 144/93 (110) 98 Room Air 98.6 EKG: EKG: [] Radiology/Procedures: Radiology/Procedures: [] Course & Med Decision Making: Course & Med Decision Making Pertinent Labs and Imaging studies reviewed. (See chart for details) [] Dragon Disclaimer: Dragon Disclaimer: This electronic medical record was generated, in whole or in part, using a voice recognition dictation system. Departure Departure Impression: Primary Impression: Acute cervical myofascial strain Qualified Codes: S16.1XXA - Strain of muscle, fascia and tendon at neck level, initial encounter Disposition: 01 HOME, SELF-CARE Condition: STABLE Referrals: NO PCP (PCP) Patient Instructions: Soft Tissue Injury of the Neck Scripts Methocarbamol (ROBAXIN-750) 750 Mg Tablet 1 TAB PO TID, #90 TAB Prov: ELISEO GONZALEZ DO 04/02/20 Justicifation of Admission Dx: Justifications for Admission: Justification of Admission Dx: No ELISEO GONZALEZ DO Apr 02, 2020 10:17
== END 2020-04-02 10:32 | disposition home or self-care (01) ==
LOC: ER 09:41
DX: S16.1XXA Strain of muscle, fascia and tendon at neck level, initial encounter (principal); G89.29 Other chronic pain; K21.9 Gastro-esophageal reflux disease without esophagitis; E78.00 Pure hypercholesterolemia, unspecified; J44.9 Chronic obstructive pulmonary disease, unspecified; F17.200 Nicotine dependence, unspecified, uncomplicated; F41.9 Anxiety disorder, unspecified; F32.9 Major depressive disorder, single episode, unspecified; Z88.5 Allergy status to narcotic agent; Z88.8 Allergy status to other drugs, medicaments and biological substances; X50.9XXA Other and unspecified overexertion or strenuous movements or postures, initial encounter; Y93.89 Activity, other specified; Y92.89 Other specified places as the place of occurrence of the external cause; Y99.8 Other external cause status
CPT/HCPCS: 99283

== ENCOUNTER 2020-04-28 12:47 | Emergency (ER) | payer SELFPAY ==
[~2020-04-28] VITALS: Ht 165.1 cm; Wt 77.0 kg
[~2020-04-28 12:47] MED LIST changes: +METH-38 PO
[2020-04-28 13:14] VITALS: BP 131/82
[2020-04-28] MEDS ORDERED: ACET500T68 PO (13:16)
--- NOTE | 2020-04-28 13:17 | PHYS DOC ---
Past Medical History Past Medical History: COPD, Depression, GERD, High Cholesterol, Pneumonia, Sciatica, Other Additional Past Medical Histor: chronic pain, CELLULITIS Past Surgical History: Other Additional Past Surgical Histo: back, left arm Smoking Status: Current Every Day Smoker Alcohol Use: None Drug Use: None General Adult EDM: Chief Complaint: BACK PAIN OR INJURY HPI: HPI: Patient is a 54 year old female who presents with patient was seen here last month on April 02 and diagnosed with a cervical back sprain and given a prescription for Tylenol. Patient states that she is here today having the same pain and it is worse with movement. Patient is ambulatory with a steady gait and walks with a cane. Patient states she still goes to physical therapy for her back pain. She has chronic back pain. Patient states that she recently moved back here from [place]. She states that she is allergic to Tylenol cannot take Tylenol. Although when looking back patient was given prescriptions for Tylenol and took them. Patient is also allergic to diclofenac, ibuprofen and naproxen. Patient asking for 1 tramadol. Patient rates her pain a 9 out of 10. She states it is a aching pulling type pain especially with of her upper extremities or bending movement. Review of Systems: Review of Systems: Constitutional: Denies fever or chills. [] Eyes: Denies change in visual acuity. [] HENT: Denies nasal congestion or sore throat. [] Respiratory: Denies cough or shortness of breath. [] Cardiovascular: Denies chest pain or edema. [] GI: Denies abdominal pain, nausea, vomiting, bloody stools or diarrhea. [] : Denies dysuria. [] Musculoskeletal: Bilateral upper back back pain or joint pain. [] Integument: Denies rash. [] Neurologic: Denies headache, focal weakness or sensory changes. [] Endocrine: Denies polyuria or polydipsia. [] Lymphatic: Denies swollen glands. [] Psychiatric: Denies depression or anxiety. [] Heart Score: Risk Factors: Risk Factors: DM, Current or recent (<one month) smoker, HTN, HLP, family history of CAD, obesity. Risk Scores: Score 0 - 3: 2.5% MACE over next 6 weeks - Discharge Home Score 4 - 6: 20.3% MACE over next 6 weeks - Admit for Clinical Observation Score 7 - 10: 72.7% MACE over next 6 weeks - Early Invasive Strategies Allergies: Allergies: Allergies Coded Allergies Type Severity Reaction Last Updated Verified ibuprofen Allergy Intermediate rash, TOLERATES KETOROLAC 04/08/18 Yes naproxen Allergy Intermediate rash, TOLERATES KETOROLAC 04/08/18 Yes diclofenac Adverse Reaction Intermediate n/v 05/12/19 Yes Physical Exam: PE: Constitutional: Well developed, well nourished, no acute distress, non-toxic appearance. [] HENT: Normocephalic, atraumatic, bilateral external ears normal, oropharynx moist, no oral exudates, nose normal. [] Eyes: PERRLA, EOMI, conjunctiva normal, no discharge. [] Neck: Normal range of motion, no tenderness, supple, no stridor. [] Cardiovascular:Heart rate regular rhythm, no murmur [] Lungs & Thorax: Bilateral breath sounds clear to auscultation [] Abdomen: Bowel sounds normal, soft, no tenderness, no masses, no pulsatile masses. [] Skin: Warm, dry, no erythema, no rash. [] Back: No tenderness, no CVA tenderness. [] Extremities: No tenderness, no cyanosis, no clubbing, ROM intact, no edema. [] Neurologic: Alert and oriented X 3, normal motor function, normal sensory function, no focal deficits noted. [] Psychologic: Affect normal, judgement normal, mood normal. Normal physical exam [] EKG: EKG: [] Radiology/Procedures: Radiology/Procedures: [] Course & Med Decision Making: Course & Med Decision Making Pertinent Labs and Imaging studies reviewed. (See chart for details) Moves all extremities without any complications. She is ambulatory with steady gait. She does walk with a cane. Has full strength in all extremities. No tenderness to her back with palpation. She states the pain goes across the scapula and upper back area. Alert and oriented. Speaks in full complete sentences. No CVA tenderness. Patient denies chest pain, shortness of breath, headache, dizziness, numbness or tingling, fever, dysuria, cough. Will be given 1 tramadol and she is to follow-up with her primary care provider. [] Zeus Disclaimer: Zeus Disclaimer: This electronic medical record was generated, in whole or in part, using a voice recognition dictation system. Departure Departure Impression: Primary Impression: Chronic back pain Qualified Codes: M54.9 - Dorsalgia, unspecified; G89.29 - Other chronic pain Disposition: 01 HOME, SELF-CARE Condition: STABLE Referrals: NO PCP (PCP) Patient Instructions: Cervical Strain and Sprain with [facility] Additional Instructions: Follow-up with your primary care physician. Continue going to physical therapy for your back pain as you have been. Scripts Acetaminophen (ACETAMINOPHEN) 500 Mg Tablet 1 TAB PO PRN Q6HRS PRN for pain or fever for 15 Days, #60 TAB 0 Refills Prov: RICHARD MCELROY APRN 04/28/20 Justicifation of Admission Dx: Justifications for Admission: Justification of Admission Dx: N/A RICHARD MCELROY APRN Apr 28, 2020 13:17
[2020-04-28] MEDS ORDERED: traMADol 50 MG TABLET PO ONE (13:30)
== END 2020-04-28 13:42 | disposition home or self-care (01) ==
LOC: ER 12:47
DX: G89.29 Other chronic pain (principal); M54.6 Pain in thoracic spine; J44.9 Chronic obstructive pulmonary disease, unspecified; F32.9 Major depressive disorder, single episode, unspecified; K21.9 Gastro-esophageal reflux disease without esophagitis; E78.00 Pure hypercholesterolemia, unspecified; F17.200 Nicotine dependence, unspecified, uncomplicated; Z98.890 Other specified postprocedural states; Z88.6 Allergy status to analgesic agent; Z88.8 Allergy status to other drugs, medicaments and biological substances
CPT/HCPCS: 99283

== ENCOUNTER 2020-05-13 16:59 | Emergency (ER) | payer SELFPAY ==
[~2020-05-13] VITALS: Ht 165.1 cm; Wt 77.0 kg
[~2020-05-13 16:59] MED LIST changes: +ACET500T68 PO
[2020-05-13 19:40] VITALS: BP 151/94
--- NOTE | 2020-05-13 19:50 | PHYS DOC ---
Past Medical History Past Medical History: COPD, Depression, GERD, High Cholesterol, Pneumonia, Sciatica, Other Additional Past Medical Histor: chronic pain, CELLULITIS Past Surgical History: Other Additional Past Surgical Histo: back, left arm Smoking Status: Current Every Day Smoker Alcohol Use: None Drug Use: None General Adult EDM: Chief Complaint: HEADACHE HPI: HPI: Patient is a 54 year old female who presents with 1 week of constant headache. Patient also has some dizziness. Patient states she was seen at [facility] for similar. She is got bruising on her right upper arm from an old IV. Patient says she has a history of headaches and this feels similar. Patient's headache is global and throbbing and she says it is 10 out of 10 in intensity. Patient also complains of chronic back pain rating to left leg that is chronic and like her prior pain. Patient denies any incontinence but has had some vomiting. Review of Systems: Review of Systems: Constitutional: Denies fever or chills. [] Eyes: Denies change in visual acuity. [] HENT: Denies nasal congestion or sore throat. [] Respiratory: Denies cough or shortness of breath. [] Cardiovascular: Denies chest pain or edema. [] GI: Denies abdominal pain, but has had vomiting : Denies dysuria. [] Musculoskeletal: Complains of neck and back pain Integument: Denies rash. [] Neurologic: Complains of headache but no new focal weakness but has dizziness Endocrine: Denies polyuria or polydipsia. [] Lymphatic: Denies swollen glands. [] Psychiatric: Denies depression or anxiety. [] Heart Score: Risk Factors: Risk Factors: DM, Current or recent (<one month) smoker, HTN, HLP, family history of CAD, obesity. Risk Scores: Score 0 - 3: 2.5% MACE over next 6 weeks - Discharge Home Score 4 - 6: 20.3% MACE over next 6 weeks - Admit for Clinical Observation Score 7 - 10: 72.7% MACE over next 6 weeks - Early Invasive Strategies Allergies: Allergies: Allergies Coded Allergies Type Severity Reaction Last Updated Verified ibuprofen Allergy Intermediate rash, TOLERATES KETOROLAC 04/08/18 Yes naproxen Allergy Intermediate rash, TOLERATES KETOROLAC 04/08/18 Yes diclofenac Adverse Reaction Intermediate n/v 05/12/19 Yes Physical Exam: PE: Constitutional: Well developed, well nourished, no acute distress, non-toxic appearance. [] HENT: Normocephalic, atraumatic, bilateral external ears normal, no trismus nose normal. [] Eyes: PERRLA, EOMI, conjunctiva normal, no discharge. [] Neck: Diffuse tender to palpation, full range of motion, no meningeal signs Cardiovascular:Heart rate regular rhythm, peripheral pulses intact Lungs & Thorax: No respiratory distress Abdomen: Bowel sounds normal, soft, no tenderness, no masses, no pulsatile masses. [] Skin: Warm, dry, no erythema, no rash. [] Back: Diffuse tenderness to palpation with mild limited range of motion Extremities: No tenderness, no cyanosis, no clubbing, ROM intact, no edema. [] Neurologic: Alert and oriented X 3, normal motor function, normal sensory fu nction, no focal deficits noted. [] Psychologic: Affect normal, judgement normal, mood normal. [] Current Patient Data: Vital Signs: Vital Signs Date Time Temp Pulse Resp B/P (MAP) Pulse Ox O2 Delivery O2 Flow Rate FiO2 05/13/20 20:54 16 100 Room Air 05/13/20 19:40 98.3 85 18 151/94 (113) 96 Room Air 98.3 EKG: EKG: [] Radiology/Procedures: Radiology/Procedures: [][facility] [address] [place] [address] IMAGING REPORT Signed PATIENT: AMADOR GLASERCOUNT: [id number] : 1965 LOCATION: ER AGE: 54 SEX: F EXAM STATUS: REG ER ORD. PHYSICIAN: BRANNON BENEDICT MD REASON: HEADACHE PROCEDURE: CT HEAD WO CONTRAST CT scan of the head without contrast 05/13/2020 Clinical History: Headache. Technique: Unenhanced, contiguous, 5 mm axial sections were obtained through the head. One or more of the following individualized dose reduction techniques were utilized for this study: 1. Automated exposure control. 2. Adjustment of the mA and/or kV according to patient size. 3. Use of iterative reconstruction technique. Findings: The ventricles and sulci are within normal limits in size and configuration. No acute parenchymal abnormality is seen. No extra-axial fluid collection is noted. No skull fracture is seen. Impression: No acute intracranial abnormality is seen. Electronically signed by: Lopez Anderson MD (05/13/2020 8:42 PM) [id number] DICTATED and SIGNED BY: LOPEZ ANDERSON MD DATE: 05/13/202041 Course & Med Decision Making: Course & Med Decision Making Pertinent Labs and Imaging studies reviewed. (See chart for details) Change in headache - A significant change in severity of the headache including changes in location or quality. Other criteria take into account most red flag symptoms and also may reflect change (if a stable primary headache were previously present) but do not reflect a previously tolerated headache that now becomes suddenly disabling in severity. Change also includes any and all new symptoms that may be associated with a headache: arm numbness, speech disturbance, etc. Indications that would warrant imaging include: ( )Head trauma (+ )New or change in headache above 50 years of age ( )Abnormal neurologic exam ( )Thunderclap headache ( )Headache radiating to the neck ( )Trigeminal pain ( )Persistent and positional headaches ( )Temporal headaches in patients over 55 years of age ( )New onset headache in pre-school children or younger (<6 years of age) ( )New onset headache in pediatric patients with disabilities for which headache is a concern as inferred from behavior ( )Occipital headache in children 54-year-old well known to the department presents with chronic back pain and headache similar to her prior although she did have some dizziness associated with it. Therefore CT was done which was negative. On reassessment patient sleeping in no acute distress. Patient stable for discharge outpatient follow- up Zeus Disclaimer: Zeus Disclaimer: This electronic medical record was generated, in whole or in part, using a voice recognition dictation system. Departure Departure Impression: Primary Impression: Headache Disposition: 01 HOME, SELF-CARE Condition: STABLE Referrals: NO PCP (PCP) pcp 2-3 days Patient Instructions: General Headache Without Cause Additional Instructions: EMERGENCY DEPARTMENT GENERAL DISCHARGE INSTRUCTIONS THANK YOU for coming to [facility] Emergency Department (ED) today and trusting us with your care. We trust that you had a positive experience in our Emergency Department. If you wish to speak to the department Management you can contact the candy department manager at . YOUR FOLLOW UP INSTRUCTIONS ARE FOLLOWS: Do you have a private doctor? If you do not have a private doctor, please ask for a resource list of physicians or clinics that may be able to assist you with follow up care. The Emergency Physician has interpreted your x-rays. The X-ray specialist will also review them. If there is a change in the findings you will be notified in 48 hours when at all possible. A lab test or lab culture may have been done, your results will be reviewed and you will be notified if you need a change in treatment. ADDITIONAL INSTRUCTIONS AND INFORMATION Your care today has been supervised by a physician who is specially trained in emergency care. Many problems require more than one evaluation for a complete diagnosis and treatment. We recommend that you schedule your follow up appointment as recommended to ensure complete treatment of your illness or injury. If you are unable to obtain follow up care and continue to have a problem, or if your condition worsens we recommend that you return to the ED. We are not able to safely determine your condition over the phone nor are we able to give sound medical advice over the phone. For these safety reasons, if you call for medical advice we will ask you to come to the ED for further evaluation If you have any questions regarding these discharge instructions please call the ED at . SAFETY INFORMATION In the interest of safety, wellness, and injury prevention; we encourage you to wear your seatbelt, if you smoke; quit smoking, and we encourage your family to use protective helmet for bicycling and other sporting events that present an increased risk for head injury. IF YOUR SYMPTOMS WORSEN OR NEW SYMPTOMS DEVELOP, OR YOU HAVE CONCERNS ABOUT YOUR CONDITION; OR IF YOUR CONDITION WORSENS WHILE YOU ARE WAITING FOR YOUR FOLLOW UP APPOINTMENT; EITHER CONTACT YOUR PRIMARY CARE DOCTOR, THE PHYSICIAN WHOSE NAME AND NUMBER YOU WERE GIVEN, OR RETURN TO THE ED IMMEDIATELY. Scripts Prochlorperazine Maleate (Compazine) 10 Mg Tablet 10 MG PO Q8HRS PRN for HEADACHE, #14 TAB Prov: BRANNON BENEDICT MD 05/13/20 Justicifation of Admission Dx: Justifications for Admission: Justification of Admission Dx: N/A BRANNON BENEDICT MD May 13, 2020 19:50
[2020-05-13] MEDS ORDERED: PROCHLORPERAZINE 10 MG/2 ML VIAL. IM ONE (20:00)
[2020-05-13] MEDS ORDERED: traMADol 50 MG TABLET PO ONE (20:45)
--- NOTE | 2020-05-13 20:45 | RAD ---
CT scan of the head without contrast 05/13/2020 Clinical History: Headache. Technique: Unenhanced, contiguous, 5 mm axial sections were obtained through the head. One or more of the following individualized dose reduction techniques were utilized for this study: 1. Automated exposure control. 2. Adjustment of the mA and/or kV according to patient size. 3. Use of iterative reconstruction technique. Findings: The ventricles and sulci are within normal limits in size and configuration. No acute parenchymal abnormality is seen. No extra-axial fluid collection is noted. No skull fracture is seen. Impression: No acute intracranial abnormality is seen. Electronically signed by: Lopez Sims MD (05/13/2020 8:42 PM) [id number]
[2020-05-13] MEDS ORDERED: PROC10TA57 PO (21:13)
== END 2020-05-13 21:35 | disposition home or self-care (01) ==
LOC: ER 16:59
DX: R51 Headache (principal); R42 Dizziness and giddiness; M54.2 Cervicalgia; G89.29 Other chronic pain; M54.9 Dorsalgia, unspecified; J44.9 Chronic obstructive pulmonary disease, unspecified; F32.9 Major depressive disorder, single episode, unspecified; K21.9 Gastro-esophageal reflux disease without esophagitis; E78.00 Pure hypercholesterolemia, unspecified; F17.200 Nicotine dependence, unspecified, uncomplicated; Z98.890 Other specified postprocedural states; Z88.6 Allergy status to analgesic agent; Z88.8 Allergy status to other drugs, medicaments and biological substances
CPT/HCPCS: 70450; 96372; 99284; J0780

== ENCOUNTER 2020-05-23 16:37 | Inpatient (IN) | payer SELFPAY ==
[~2020-05-23] VITALS: Ht 165.1 cm; Wt 112.0 kg
[~2020-05-23 16:37] MED LIST changes: +PROC10TA57 PO
[2020-05-23] MEDS ORDERED: ASPIRIN 325 MG TABLET PO ONE (17:00)
[2020-05-23] MEDS ORDERED: MORPHINE SULFATE 4 MG/ML VIAL. IV/SQ PRN (17:00)
[2020-05-23 17:03] LABS: BASO # 0.1 x10^3/uL (0.0-0.2); BASO % 1 % (0-3); EOS # 0.4 x10^3/uL (0.0-0.7); EOS % 5 % (0-3); HEMATOCRIT 36.6 % (36.0-47.0); HEMOGLOBIN 12.4 g/dL (12.0-15.5); LYMPH # 2.3 x10^3/uL (1.0-4.8); LYMPH % 31 % (24-48); MEAN CORPUSCULAR HEMOGLOBIN 31 pg (25-35); MEAN CORPUSCULAR HGB CONC 34 g/dL (31-37); MEAN CORPUSCULAR VOLUME 92 fL (79-100); MONO # 0.6 x10^3/uL (0.0-1.1); MONO % 8 % (0-9); NEUT % 55 % (31-73); PLATELET COUNT 378 x10^3/uL (140-400); RED CELL DISTRIBUTION WIDTH 15.9 % (11.5-14.5); WHITE BLOOD COUNT 7.3 x10^3/uL (4.0-11.0)
--- NOTE | 2020-05-23 17:33 | RAD ---
INDICATION: Reason: chest pain / Spl. Instructions: / History: COMPARISON: March 20, 2020 FINDINGS: Single view of chest obtained. No focal airspace consolidation or pulmonary edema. Cardiac silhouette is similar to prior with calcific atherosclerosis. Degenerative changes of the spine. IMPRESSION: * No focal airspace consolidation or edema. Electronically signed by: Kulwant Viveros MD (05/23/2020 5:30 PM) [id number]
[2020-05-23 17:35] LABS: CALCIUM 8.3 mg/dL (8.5-10.1); CREATININE 0.7 mg/dL (0.6-1.0); GFR 87.2; POTASSIUM 4.4 mmol/L (3.5-5.1)
[2020-05-23 17:42] LABS: ALBUMIN 3.3 g/dL (3.4-5.0); ALBUMIN/GLOBULIN RATIO 0.9 (1.0-1.7); MAGNESIUM 2.1 mg/dL (1.8-2.4); TOTAL BILIRUBIN 0.2 mg/dL (0.2-1.0)
[2020-05-23 17:51] LABS: CREATINE KINASE 61 U/L (26-192)
[2020-05-23 18:15] LABS: BILIRUBIN,URINE NEGATIVE (NEG); CLARITY,URINE CLEAR; COLOR,URINE YELLOW; NITRITE,URINE NEGATIVE (NEG); PROTEIN,URINE NEGATIVE (NEG-TRACE); UROBILINOGEN,URINE 0.2 mg/dL (0.2 mg/dL)
[2020-05-23 18:22] LABS: AMPHETAMINE/METHAMPHETAMINE NEG (NEG); BARBITURATES NEG (NEG); BENZODIAZEPINES NEG (NEG); CANNABINOIDS NEG (NEG); COCAINE NEG (NEG); METHADONE NEG (NEG); OPIATES POS (NEG); PHENCYCLIDINE NEG (NEG)
[2020-05-23 18:25] LABS: BACTERIA,URINE 0 /HPF (0-FEW); RBC,URINE 0 /HPF (0-2); WBC,URINE 0 /HPF (0-4)
[2020-05-23] MEDS ORDERED: MORPHINE SULFATE 2 MG/ML VIAL. IV ONE (19:30)
--- NOTE | 2020-05-23 19:54 | PHYS DOC ---
Past Medical History Past Medical History: COPD, Depression, GERD, High Cholesterol, Pneumonia, Sciatica, Other Additional Past Medical Histor: chronic pain, CELLULITIS Past Surgical History: Other Additional Past Surgical Histo: back, left arm Smoking Status: Current Every Day Smoker Alcohol Use: None Drug Use: None General Adult EDM: Chief Complaint: CHEST PAIN HPI: HPI: Patient is a 54 year old female with a history of high cholesterol who presents to the ED today complaining of 10 out of 10 sharp intermittent left-sided chest pain that began yesterday. Patient denies anything specifically exacerbating or relieving her pain. Of note patient had called the ED a couple minutes prior to coming in the ED, the phone was transferred to me. I Spoke with patient, she informed me she has chest pain and informed her that she needs to be seen in the emergency room right away. Review of Systems: Review of Systems: Constitutional: Denies fever or chills. [] Eyes: Denies change in visual acuity. [] HENT: Denies nasal congestion or sore throat. [] Respiratory: Denies cough or shortness of breath. [] Cardiovascular: Reports chest pain GI: Denies abdominal pain, nausea, vomiting, bloody stools or diarrhea. [] : Denies dysuria. [] Musculoskeletal: Denies back pain or joint pain. [] Integument: Denies rash. [] Neurologic: Denies headache, focal weakness or sensory changes. [] Psychiatric: Denies depression or anxiety. [] Heart Score: HEART Score for Chest Pain: HEART Score for Chest Pain Response (Comments) Value History Slighlty/Non-Suspicious 0 ECG Normal 0 Age >45 - < 65 1 Risk Factors 1 or 2 Risk Factors 1 Troponin < Normal Limit 0 Total 2 Risk Factors: Risk Factors: DM, Current or recent (<one month) smoker, HTN, HLP, family history of CAD, obesity. Risk Scores: Score 0 - 3: 2.5% MACE over next 6 weeks - Discharge Home Score 4 - 6: 20.3% MACE over next 6 weeks - Admit for Clinical Observation Score 7 - 10: 72.7% MACE over next 6 weeks - Early Invasive Strategies Current Medications: Current Medications Medications (Trade) Dose Ordered Sig/Jayy Start Time Stop Time Status Last Admin Dose Admin Aspirin (Anthony Aspirin) 325 mg 1X ONCE 05/23/20 17:00 05/23/20 17:01 DC 05/23/20 17:13 325 MG Morphine Sulfate (Morphine Sulfate) 2 mg 1X ONCE 05/23/20 19:30 05/23/20 19:31 DC 05/23/20 19:25 2 MG Allergies: Allergies: Allergies Coded Allergies Type Severity Reaction Last Updated Verified ibuprofen Allergy Intermediate rash, TOLERATES KETOROLAC 04/08/18 Yes naproxen Allergy Intermediate rash, TOLERATES KETOROLAC 04/08/18 Yes diclofenac Adverse Reaction Intermediate n/v 05/12/19 Yes Physical Exam: PE: Constitutional: Well developed, well nourished, no acute distress, non-toxic appearance. [] HENT: Normocephalic, atraumatic, bilateral external ears normal, oropharynx moist, no oral exudates, nose normal. [] Eyes: PERRLA, EOMI, conjunctiva normal, no discharge. [] Neck: Normal range of motion, no tenderness, supple, no stridor. [] Cardiovascular:Heart rate regular rhythm, no murmur [] Lungs & Thorax: Bilateral breath sounds clear to auscultation [] Abdomen: Bowel sounds normal, soft, no tenderness, no masses, no pulsatile masses. [] Skin: Warm, dry, no erythema, no rash. [] Back: No tenderness, no CVA tenderness. [] Extremities: No tenderness, no cyanosis, no clubbing, ROM intact, no edema. [] Neurologic: Alert and oriented X 3, normal motor function, normal sensory function, no focal deficits noted. [] Psychologic: Affect normal, judgement normal, mood normal. [] Current Patient Data: Labs: Laboratory Tests Test 05/23/20 16:55 05/23/20 17:19 05/23/20 18:00 White Blood Count 7.3 x10^3/uL (4.0-11.0) Red Blood Count 4.00 x10^6/uL (3.50-5.40) Hemoglobin 12.4 g/dL (12.0-15.5) Hematocrit 36.6 % (36.0-47.0) Mean Corpuscular Volume 92 fL (79-100) Mean Corpuscular Hemoglobin 31 pg (25-35) Mean Corpuscular Hemoglobin Concent 34 g/dL (31-37) Red Cell Distribution Width 15.9 % (11.5-14.5) H Platelet Count 378 x10^3/uL (140-400) Neutrophils (%) (Auto) 55 % (31-73) Lymphocytes (%) (Auto) 31 % (24-48) Monocytes (%) (Auto) 8 % (0-9) Eosinophils (%) (Auto) 5 % (0-3) H Basophils (%) (Auto) 1 % (0-3) Neutrophils # (Auto) 4.0 x10^3/uL (1.8-7.7) Lymphocytes # (Auto) 2.3 x10^3/uL (1.0-4.8) Monocytes # (Auto) 0.6 x10^3/uL (0.0-1.1) Eosinophils # (Auto) 0.4 x10^3/uL (0.0-0.7) Basophils # (Auto) 0.1 x10^3/uL (0.0-0.2) Sodium Level 139 mmol/L (136-145) Potassium Level 4.4 mmol/L (3.5-5.1) Chloride Level 104 mmol/L (98-107) Carbon Dioxide Level 28 mmol/L (21-32) Anion Gap 7 (6-14) Blood Urea Nitrogen 17 mg/dL (7-20) Creatinine 0.7 mg/dL (0.6-1.0) Estimated GFR (Cockcroft-Gault) 87.2 BUN/Creatinine Ratio 24 (6-20) H Glucose Level 94 mg/dL (70-99) Calcium Level 8.3 mg/dL (8.5-10.1) L Magnesium Level 2.1 mg/dL (1.8-2.4) Total Bilirubin 0.2 mg/dL (0.2-1.0) Aspartate Amino Transferase (AST) 9 U/L (15-37) L Alanine Aminotransferase (ALT) 13 U/L (14-59) L Alkaline Phosphatase 95 U/L (46-116) Creatine Kinase 61 U/L (26-192) Creatine Kinase MB (Mass) 0.6 ng/mL (0.0-3.6) Creatine Kinase MB Relative Index % (0-4) Troponin I Quantitative < 0.017 ng/mL (0.000-0.055) AB-Zhe-P-Type Natriuretic Peptide 47 pg/mL (0-124) Total Protein 7.0 g/dL (6.4-8.2) Albumin 3.3 g/dL (3.4-5.0) L Albumin/Globulin Ratio 0.9 (1.0-1.7) L Thyroid Stimulating Hormone (TSH) 1.158 uIU/mL (0.358-3.74) Urine Collection Type Unknown Urine Color Yellow Urine Clarity Clear Urine pH 7.0 (<5.0-8.0) Urine Specific [place] 1.015 (1.000-1.030) Urine Protein Negative mg/dL (NEG-TRACE) Urine Glucose (UA) Negative mg/dL (NEG) Urine Ketones (Stick) Negative mg/dL (NEG) Urine Blood Negative (NEG) Urine Nitrite Negative (NEG) Urine Bilirubin Negative (NEG) Urine Urobilinogen Dipstick 0.2 mg/dL (0.2 mg/dL) Urine Leukocyte Esterase Negative (NEG) Urine RBC 0 /HPF (0-2) Urine WBC 0 /HPF (0-4) Urine Bacteria 0 /HPF (0-FEW) Urine Mucus Slight /LPF Urine Opiates Screen Pos (NEG) Urine Methadone Screen Neg (NEG) Urine Barbiturates Neg (NEG) Urine Phencyclidine Screen Neg (NEG) Urine Amphetamine/Methamphetamine Neg (NEG) Urine Benzodiazepines Screen Neg (NEG) Urine Cocaine Screen Neg (NEG) Urine Cannabinoids Screen Neg (NEG) Urine Ethyl Alcohol Neg (NEG) Laboratory Tests 05/23/20 16:55 Laboratory Tests 05/23/20 17:19 Vital Signs: Vital Signs Date Time Temp Pulse Resp B/P (MAP) Pulse Ox O2 Delivery O2 Flow Rate FiO2 05/23/20 19:25 Room Air 05/23/20 16:43 98.4 84 20 109/64 (79) 99 98.4 EKG: EKG: [] Radiology/Procedures: Radiology/Procedures: []PROCEDURE: PORTABLE CHEST 1V INDICATION: Reason: chest pain / Spl. Instructions: / History: COMPARISON: March 20, 2020 FINDINGS: Single view of chest obtained. No focal airspace consolidation or pulmonary edema. Cardiac silhouette is similar to prior with calcific atherosclerosis. Degenerative changes of the spine. IMPRESSION: * No focal airspace consolidation or edema. Electronically signed by: Dolly Viveros MD (05/23/2020 5:30 PM) [id number] DICTATED and SIGNED BY: DOLLY VIVEROS MD DATE: 05/23/20 758 Course & Med Decision Making: Course & Med Decision Making Pertinent Labs and Imaging studies reviewed. (See chart for details) This is a 54-year-old female patient presenting to the ED today complaining of left-sided chest pain that began 2 days ago. EKG and cardiac lab work and negative for any acute findings. Patient continued complaining of chest pain after being given morphine several times. Will be admitted. Spoke with Dr. Serrano who accepted patient for admission Routine consult placed for cardiology Zeus Disclaimer: Zeus Disclaimer: This electronic medical record was generated, in whole or in part, using a voice recognition dictation system. Departure Departure Impression: Primary Impression: Chest pain Qualified Codes: R07.9 - Chest pain, unspecified Disposition: 09 ADMITTED INPATIENT Condition: STABLE Referrals: NO PCP (PCP) Justicifation of Admission Dx: Justifications for Admission: Justification of Admission Dx: Yes CHF: Hemodynamic Instability MEMO NELSON PST SUPERVISOR May 23, 2020 19:54
--- NOTE | 2020-05-23 20:04 | HP ---
ADMIT DATE: 05/23/2020 CHIEF COMPLAINT: Chest pain. HISTORY OF PRESENT ILLNESS: The patient is a pleasant middle-aged female who presents with chest pain. She rates it as 6/10. It has been occurring for several days. I discussed the case with ER physician. We are going to admit the patient and consult Cardiology. PAST MEDICAL HISTORY: Polypharmacy, MRSA, fungal infection, asthma, COPD, muscle spasms, hyperlipidemia, depression, anxiety, neuropathy, GERD. ALLERGIES: DICLOFENAC, IBUPROFEN AND NAPROSYN. FAMILY HISTORY: Diabetes. SOCIAL HISTORY: She does not drink, smoke or take drugs. MEDICATIONS: Reviewed, please refer to the MRAD. She is on 25 medications. REVIEW OF SYSTEMS: GENERAL: No history of weight change, weakness or fevers. SKIN: No bruising, hair changes or rashes. EYES: No blurred, double or loss of vision. NOSE AND THROAT: No history of nosebleeds, hoarseness or sore throat. HEART: She complains of chest pain. LUNGS: Denies cough, hemoptysis, wheezing or shortness of breath. GASTROINTESTINAL: Denies changes in appetite, nausea, vomiting, diarrhea or constipation. GENITOURINARY: No history of frequency, urgency, hesitancy or nocturia. NEUROLOGIC: Denies history of numbness, tingling, tremor or weakness. PSYCHIATRIC: No history of panic, anxiety or depression. ENDOCRINE: No history of heat or cold intolerance, polyuria or polydipsia. EXTREMITIES: Denies muscle weakness, joint pain, pain on walking or stiffness. PHYSICAL EXAMINATION: VITALS: Within normal limits and are stable. GENERAL: No apparent distress. Alert and oriented. HEENT: Normal cephalic atraumatic, external auditory canals are patent EYES: Extraocular muscles are intact, pupils are equally round and reactive to light and accommodation MUSCULOSKELETAL: Well developed, well nourished, good range of motion ENDOCRINE: No thyromegaly was palpated LYMPHATICS: No cervical chain or axillary nodes were noted HEMATOPOIETIC: No bruising NECK: Supple, no JVD, no thyromegaly was noted. LUNGS: Clear to auscultation in all lung walters without rhonchi or wheezing. HEART: RRR, S1, S2 present. Peripheral pulses intact, no obvious murmurs were noted. ABDOMEN: Soft, nontender. Positive bowel sounds no organomegaly, normal bowel sounds. EXTREMITIES: Without any cyanosis, clubbing, or edema. Pedal pulses intact, Homans sign is negative. NEUROLOGIC: Normal speech, normal tone. A & O x3, moves all extremities, no obvious focal deficits. PSYCHIATRIC: Normal affect, normal mood. Stable. SKIN: No ulcerations or rashes, good skin turgor, no jaundice. VASCULAR: Good capillary refill, neurovascular bundle appears to be intact. LABORATORY DATA: Troponin is 0. Hematology normal. ASSESSMENT AND PLAN: Chest pain. The patient will be admitted. We will check serial enzymes, serial EKGs. Consult Cardiology. Home meds, DVT prophylaxis. Full code. LUCIO ANDINO DO DR: PAO/liliya JOB#: [id number] / [id number]
[2020-05-23] MEDS ORDERED: ACETAMINOPHEN 325 MG TABLET. PO PRN (20:15)
[2020-05-23] MEDS ORDERED: NITROGLYCERIN SUBLINGUAL 0.4 MG BOTTLE OF 25. SL PRN (20:15)
[2020-05-23] MEDS ORDERED: ONDANSETRON PF 4 MG/2 ML VIAL. IV PRN (20:15)
[2020-05-23] MEDS: MORPHINE SULFATE 4 MG/ML VIAL. IV PRN ×2 (21:15→23:35)
[2020-05-23 22:02] VITALS: BP 121/67
[2020-05-24 03:12] VITALS: BP 108/60
[2020-05-24 05:40] LABS: BASO # 0.1 x10^3/uL (0.0-0.2); BASO % 1 % (0-3); EOS # 0.3 x10^3/uL (0.0-0.7); EOS % 5 % (0-3); HEMATOCRIT 34.4 % (36.0-47.0); HEMOGLOBIN 11.4 g/dL (12.0-15.5); LYMPH # 1.7 x10^3/uL (1.0-4.8); LYMPH % 28 % (24-48); MEAN CORPUSCULAR HEMOGLOBIN 31 pg (25-35); MEAN CORPUSCULAR HGB CONC 33 g/dL (31-37); MEAN CORPUSCULAR VOLUME 93 fL (79-100); MONO # 0.6 x10^3/uL (0.0-1.1); MONO % 10 % (0-9); NEUT # 3.4 x10^3/uL (1.8-7.7); NEUT % 57 % (31-73); PLATELET COUNT 333 x10^3/uL (140-400)
[2020-05-24] MEDS: MORPHINE SULFATE 4 MG/ML VIAL. IV PRN ×3 (06:20→13:40)
[2020-05-24 07:00] VITALS: BP 108/57
[2020-05-24] MEDS ORDERED: REGADENOSON 0.4 MG/5 ML DISP.SYRIN. IV ONE (08:45)
--- NOTE | 2020-05-24 10:30 | PDOC ---
[employer] PROGRESS NOTE Date of Service DOS: DATE: 05/24/20 TIME: 10:22 Chief Complaint Chief Complaint Chest pain Asthma COPD GERD Hyperlipidemia Anxiety Depression Neuropathy Muscle spasms MRSA Polypharmacy History of Present Illness History of Present Illness 05/24/2020 Patient seen and examined Patient is pleasant and in NAD Patient is on room air and troponin remains at 0 Discussed with RN Chart reviewed Vitals/I&O Vitals/I&O: Vital Signs Date Time Temp Pulse Resp B/P (MAP) Pulse Ox O2 Delivery O2 Flow Rate FiO2 05/24/20 07:00 97.9 68 16 108/57 (74) 92 Room Air 97.9 I & O 05/23/20 05/23/20 05/24/20 15:00 23:00 07:00 Intake Total 120 ml 0 ml Balance 120 ml 0 ml Physical Exam General: Alert, Oriented X3, Cooperative, No acute distress Heart: Regular rate, Normal S1, Normal S2 Lungs: Clear Abdomen: Soft, No tenderness Extremities: No clubbing, No cyanosis Skin: No rashes, No breakdown, No significant lesion Labs Labs: Laboratory Tests Test 05/23/20 16:55 05/23/20 17:19 05/23/20 18:00 05/24/20 00:10 White Blood Count 7.3 x10^3/uL (4.0-11.0) Red Blood Count 4.00 x10^6/uL (3.50-5.40) Hemoglobin 12.4 g/dL (12.0-15.5) Hematocrit 36.6 % (36.0-47.0) Mean Corpuscular Volume 92 fL (79-100) Mean Corpuscular Hemoglobin 31 pg (25-35) Mean Corpuscular Hemoglobin Concent 34 g/dL (31-37) Red Cell Distribution Width 15.9 % (11.5-14.5) Platelet Count 378 x10^3/uL (140-400) Neutrophils (%) (Auto) 55 % (31-73) Lymphocytes (%) (Auto) 31 % (24-48) Monocytes (%) (Auto) 8 % (0-9) Eosinophils (%) (Auto) 5 % (0-3) Basophils (%) (Auto) 1 % (0-3) Neutrophils # (Auto) 4.0 x10^3/uL (1.8-7.7) Lymphocytes # (Auto) 2.3 x10^3/uL (1.0-4.8) Monocytes # (Auto) 0.6 x10^3/uL (0.0-1.1) Eosinophils # (Auto) 0.4 x10^3/uL (0.0-0.7) Basophils # (Auto) 0.1 x10^3/uL (0.0-0.2) Sodium Level 139 mmol/L (136-145) Potassium Level 4.4 mmol/L (3.5-5.1) Chloride Level 104 mmol/L (98-107) Carbon Dioxide Level 28 mmol/L (21-32) Anion Gap 7 (6-14) Blood Urea Nitrogen 17 mg/dL (7-20) Creatinine 0.7 mg/dL (0.6-1.0) Estimated GFR (Cockcroft-Gault) 87.2 BUN/Creatinine Ratio 24 (6-20) Glucose Level 94 mg/dL (70-99) Calcium Level 8.3 mg/dL (8.5-10.1) Magnesium Level 2.1 mg/dL (1.8-2.4) Total Bilirubin 0.2 mg/dL (0.2-1.0) Aspartate Amino Transf (AST/SGOT) 9 U/L (15-37) Alanine Aminotransferase (ALT/SGPT) 13 U/L (14-59) Alkaline Phosphatase 95 U/L (46-116) Creatine Kinase 61 U/L (26-192) Creatine Kinase MB (Mass) 0.6 ng/mL (0.0-3.6) Creatine Kinase MB Relative Index % (0-4) Troponin I Quantitative < 0.017 ng/mL (0.000-0.055) < 0.017 ng/mL (0.000-0.055) SO-Rso-A-Type Natriuretic Peptide 47 pg/mL (0-124) Total Protein 7.0 g/dL (6.4-8.2) Albumin 3.3 g/dL (3.4-5.0) Albumin/Globulin Ratio 0.9 (1.0-1.7) Thyroid Stimulating Hormone (TSH) 1.158 uIU/mL (0.358-3.74) Urine Collection Type Unknown Urine Color Yellow Urine Clarity Clear Urine pH 7.0 (<5.0-8.0) Urine Specific [place] 1.015 (1.000-1.030) Urine Protein Negative mg/dL (NEG-TRACE) Urine Glucose (UA) Negative mg/dL (NEG) Urine Ketones (Stick) Negative mg/dL (NEG) Urine Blood Negative (NEG) Urine Nitrite Negative (NEG) Urine Bilirubin Negative (NEG) Urine Urobilinogen Dipstick 0.2 mg/dL (0.2 mg/dL) Urine Leukocyte Esterase Negative (NEG) Urine RBC 0 /HPF (0-2) Urine WBC 0 /HPF (0-4) Urine Bacteria 0 /HPF (0-FEW) Urine Mucus Slight /LPF Urine Opiates Screen Pos (NEG) Urine Methadone Screen Neg (NEG) Urine Barbiturates Neg (NEG) Urine Phencyclidine Screen Neg (NEG) Urine Amphetamine/Methamphetamine Neg (NEG) Urine Benzodiazepines Screen Neg (NEG) Urine Cocaine Screen Neg (NEG) Urine Cannabinoids Screen Neg (NEG) Urine Ethyl Alcohol Neg (NEG) Test 05/24/20 02:00 White Blood Count 6.0 x10^3/uL (4.0-11.0) Red Blood Count 3.70 x10^6/uL (3.50-5.40) Hemoglobin 11.4 g/dL (12.0-15.5) Hematocrit 34.4 % (36.0-47.0) Mean Corpuscular Volume 93 fL (79-100) Mean Corpuscular Hemoglobin 31 pg (25-35) Mean Corpuscular Hemoglobin Concent 33 g/dL (31-37) Red Cell Distribution Width 16.0 % (11.5-14.5) Platelet Count 333 x10^3/uL (140-400) Neutrophils (%) (Auto) 57 % (31-73) Lymphocytes (%) (Auto) 28 % (24-48) Monocytes (%) (Auto) 10 % (0-9) Eosinophils (%) (Auto) 5 % (0-3) Basophils (%) (Auto) 1 % (0-3) Neutrophils # (Auto) 3.4 x10^3/uL (1.8-7.7) Lymphocytes # (Auto) 1.7 x10^3/uL (1.0-4.8) Monocytes # (Auto) 0.6 x10^3/uL (0.0-1.1) Eosinophils # (Auto) 0.3 x10^3/uL (0.0-0.7) Basophils # (Auto) 0.1 x10^3/uL (0.0-0.2) Troponin I Quantitative < 0.017 ng/mL (0.000-0.055) Assessment and Plan Assessmemt and Plan Problems Medical Problems: (1) Chest pain Status: Acute ASSESSMENT Chest pain Asthma COPD GERD Hyperlipidemia Anxiety Depression Neuropathy Muscle spasms MRSA Polypharmacy PLAN Awaiting cardiology input Cardiac monitoring Serial EKGs Serial cardiac enzymes Home meds DVT prophylaxis Full code Comment Review of Relevant I have reviewed the following items mechelle (where applicable) has been applied. Medications: Current Medications Medications (Trade) Dose Ordered Sig/Jayy Route PRN Reason Start Time Stop Time Status Last Admin Dose Admin Aspirin (Anthony Aspirin) 325 mg 1X ONCE PO 05/23/20 17:00 05/23/20 17:01 DC 05/23/20 17:13 Morphine Sulfate (Morphine Sulfate) 4 mg PRN Q15MIN PRN IV/SQ PAIN GREATER THAN 3/10 05/23/20 17:00 05/24/20 16:59 05/23/20 17:14 Morphine Sulfate (Morphine Sulfate) 2 mg 1X ONCE IV 05/23/20 19:30 05/23/20 19:31 DC 05/23/20 19:25 Morphine Sulfate (Morphine Sulfate) 4 mg PRN Q2HR PRN IV PAIN 05/23/20 20:15 05/24/20 20:14 05/24/20 06:20 Regadenoson (Lexiscan) 0.4 mg 1X ONCE IV 05/24/20 08:45 05/24/20 08:49 DC 05/24/20 09:13 Justicifation of Admission Dx: Justifications for Admission: Justification of Admission Dx: Yes CHF: Hemodynamic Instability LUCIO ANDINO III DO May 24, 2020 10:30
[2020-05-24 11:05] VITALS: BP 107/64
--- NOTE | 2020-05-24 11:57 | NUR ---
SS following for discharge planning. SS reviewed pt chart and discussed with pt RN. Pt is from home with spouse and is currently on room air. Discharge plan is to home when ready. SS will continue to follow for discharge planning.
--- NOTE | 2020-05-24 14:38 | RAD ---
MR#: [id number] Date of Study: 05/24/2020 Ordering Physician: CARMEN RED, Referring Physician: RC BRICEÑO Tech: MACEY Welch ARRT (Yamilex) (N) APPROVED REPORT Test Type: Pharmacological Stress Nurse/Tech: Rell Dial RN Test Indications: Chest Pain Cardiac History: See EMR. Medications: See EMR. Medical History: Seizure, Asthma/COPD, See EMR. Resting ECG: SR Resting Heart Rate: 62 bpm Resting Blood Pressure: 102/63mmHg Pretest Chest Pain: No chest pain Nurse/Tech Notes Lungs CTA. Heart tones regular. Consent: The procedure was explained to the patient in lay terms. Informed consent was witnessed. Bennett eout was entered into [employer]. History and Stress Test performed by RT Cornelio FernandezR) (N) Pharm. Details Pharmacologic stress testing was performed using 0.4mg per 5ml of regadenoson given intravenously ove r 7-10 seconds. Stress Symptoms Dyspnea POST EXERCISE Reason for Termination: Infusion complete Max HR: 102 bpm Max Blood Pressure: 113/68mmHg Blood Pressure response to exercise: Normal blood pressure response during stress. Heart Rate response to exercise: WNL Chest Pain: No. Arrhythmia: No. ST Change: No. INTERPRETATION Stress EKG Conclusion: No evidence of stress induced EKG changes. Imaging Protocol IMAGE PROTOCOL: Stress Tc-99m/rest Tc-99m 2 days Rest: Stress: Viability: Radiopharm.Tc99m Sestamibi Dose32.3mCi Img Date 05/24/2020 Inj-Img [id number]. Stress Admin Site: IV - Right AntecubitalAdministrator: MACEY Welch ARRT (R)(N) STRESS DATA End Diast. Vol.117.0mlAv. Heart Rate57.0bpm End Syst. Vol.45.0mlCO Index BSA4.1L/min Myocardial Qhvc493.0gEject. Eopxlkzu28.0% Stress Rates Pk. Fill Rate2.61EDV/secLVtime Pk. Fill 227.24msec Pk. Empty Rate3.25ESV/secLVtime Pk. Feaox608.03msec 10/13 Pk. Fill1.21EDV/sec Stress Scores Regional WT0.00Summed WT1.00 Regional WM0.00Summed WM3.00 LV Perfusion Normal perfusion at stress. Wall Motion Normal wall motion at stress. LV Perf. Quant 17 Seg. SSS0.00 Stress Defect Extent (% LAD)0.00Rest Defect Extent (% LAD)Rev. Defect Extent (% LAD) Stress Defect Extent (% LCX) 0.00Rest Defect Extent (% LCX)Rev. Defect Extent (% LCX) Stress Defect Extent (% RCA)0.00Rest Defect Extent (% RCA)Rev. Defect Extent (% RCA) Stress Defect Extent (% KARLI)0.70Rest Defect Extent (% KARLI)Rev. Defect Extent (% KARLI) Other Information Quality:Fair Risk Assessment: Low Risk Conclusion 1. No evidence of EKG changes with stress testing. 2. Normal perfusion at stress. Rest images noted obtained. 3. Low risk study. 4. EF > 60%. Signed by : Carmen Red, Electronically Approved : 05/24/2020 14:37:10
[2020-05-24 15:11] VITALS: BP 113/57
--- NOTE | 2020-05-24 15:54 | EKG ---
[facility] [address] [place] [address] Test Date: 2020-05-23 Test Time: 16:44:36 Pat Name: JACKY GLASER Department: Room: Gender: F [employer] Operator: : 1965 Requested By: MEMO NELSON Order Number: [id number] Reading MD: Measurements Intervals [place] Rate: 79 P: 46 NV: 160 QRS: 55 QRSD: 72 T: 49 QT: 360 QTc: 414 Interpretive Statements SINUS RHYTHM OTHERWISE NORMAL ECG RI6.01 No previous ECG available for comparison
[2020-05-24] MEDS: oxyCODONE/APAP 5/325 1 TAB TABLET PO PRN ×2 (16:30→20:13)
[2020-05-24] MEDS ORDERED: BENZONATATE 100 MG CAPSULE. PO PRN (18:30)
[2020-05-24] MEDS ORDERED: ACETAMINOPHEN 500 MG TABLET PO PRN (18:30)
[2020-05-24] MEDS ORDERED: traZODone 50 MG TABLET. PO PRN (18:30)
[2020-05-24] MEDS ORDERED: CYCLOBENZAPRINE 10 MG TABLET. PO PRN (18:30)
[2020-05-24 19:34] VITALS: BP 113/54
[2020-05-24] MEDS: GABAPENTIN 300 MG CAPSULE. PO SCH (20:13)
[2020-05-24 23:09] VITALS: BP 94/48
--- NOTE | 2020-05-25 | PDOC2 ---
CARDIOLOGY CONSULT NOTE DATE OF SERVICE: DATE: 05/24/20 TIME: 23:57 CHIEF COMPLAINT: CHest pain HPI: 54 y.o woman presents for chest pain. Otherwise, no new issues. Initial eval thus far in hospital has been unremarkable. Patient is a poor historian, partially due to language barrier. PMHX: PAST MEDICAL HISTORY: Polypharmacy, MRSA, fungal infection, asthma, COPD, muscle spasms, hyperlipidemia, depression, anxiety, neuropathy, GERD. SOCHX: No alcohol, tob or illicits FAMHX: NC CURRENT MEDS: Current Medications Medications (Trade) Dose Ordered Sig/Jayy Route PRN Reason Start Time Stop Time Status Last Admin Dose Admin Regadenoson (Lexiscan) 0.4 mg 1X ONCE IV 05/24/20 08:45 05/24/20 08:49 DC 05/24/20 09:13 Oxycodone/ Acetaminophen (Percocet 5/325) 1 tab PRN Q4HRS PRN PO MODERATE PAIN 05/24/20 14:00 05/24/20 20:13 Cyclobenzaprine HCl (Flexeril) 10 mg PRN TID PRN PO MUSCLE SPASMS 05/24/20 18:30 05/24/20 19:09 Trazodone HCl (Desyrel) 50 mg PRN QHS PRN PO INSOMNIA 05/24/20 18:30 05/24/20 20:13 Gabapentin (Neurontin) 300 mg TID PO 05/24/20 19:12 05/24/20 20:13 ALLERGIES: Allergies Coded Allergies Type Severity Reaction Last Updated Verified ibuprofen Allergy Intermediate rash, TOLERATES KETOROLAC 04/08/18 Yes naproxen Allergy Intermediate rash, TOLERATES KETOROLAC 04/08/18 Yes diclofenac Adverse Reaction Intermediate n/v 05/12/19 Yes ROS: Negative for 07/24 systems reviewed unless noted above in HPI PHYSICAL EXAM: Vital Signs/I&O: Vital Signs Date Time Temp Pulse Resp B/P (MAP) Pulse Ox O2 Delivery O2 Flow Rate FiO2 05/24/20 23:09 97.7 64 17 94/48 (63) 93 Room Air 97.7 I & O 05/23/20 05/23/20 05/24/20 15:00 23:00 07:00 Intake Total 120 ml 0 ml Balance 120 ml 0 ml Physical Exam: GEN.: No apparent distress. Alert and oriented. HEENT: Head is normocephalic, atraumatic NECK: Supple. LUNGS: Clear to auscultation. HEART: RRR, S1, S2 present. Peripheral pulses intact ABDOMEN: Soft, nontender. Positive bowel sounds. EXTREMITIES: Without any cyanosis. NEUROLOGIC: Normal speech, normal tone PSYCHIATRIC: Normal affect, normal mood. SKIN: No ulcerations DIAGNOSTIC TESTING: Labs/EKG negative Lab Laboratory Tests Test 05/24/20 02:00 White Blood Count 6.0 x10^3/uL (4.0-11.0) Red Blood Count 3.70 x10^6/uL (3.50-5.40) Hemoglobin 11.4 g/dL (12.0-15.5) L Hematocrit 34.4 % (36.0-47.0) L Mean Corpuscular Volume 93 fL (79-100) Mean Corpuscular Hemoglobin 31 pg (25-35) Mean Corpuscular Hemoglobin Concent 33 g/dL (31-37) Red Cell Distribution Width 16.0 % (11.5-14.5) H Platelet Count 333 x10^3/uL (140-400) Neutrophils (%) (Auto) 57 % (31-73) Lymphocytes (%) (Auto) 28 % (24-48) Monocytes (%) (Auto) 10 % (0-9) H Eosinophils (%) (Auto) 5 % (0-3) H Basophils (%) (Auto) 1 % (0-3) Neutrophils # (Auto) 3.4 x10^3/uL (1.8-7.7) Lymphocytes # (Auto) 1.7 x10^3/uL (1.0-4.8) Monocytes # (Auto) 0.6 x10^3/uL (0.0-1.1) Eosinophils # (Auto) 0.3 x10^3/uL (0.0-0.7) Basophils # (Auto) 0.1 x10^3/uL (0.0-0.2) Laboratory Tests 05/24/20 02:00 ASSESSMENT: 1. Atypical chest pain in patient with multiple risk factors and poor historian PLAN: 1. Stress MPI negative. Ok to DC from CV standpoint. Thanks for consultation. Pls call with questions. CARMEN EDMOND MD May 25, 2020 00:00
[2020-05-25 03:15] VITALS: BP 132/78
[2020-05-25] MEDS: oxyCODONE/APAP 5/325 1 TAB TABLET PO PRN ×2 (03:52→08:14)
[2020-05-25 07:00] VITALS: BP 120/60
[2020-05-25] MEDS: GABAPENTIN 300 MG CAPSULE. PO SCH (08:14)
[2020-05-25 10:53] VITALS: BP 113/58
--- NOTE | 2020-05-25 12:10 | NUR ---
Discharge: Teaching verbal and written. Reviewed medications, follow-up, stress test, chest pain, ect. Patient verbalized understanding. 1 prescription for Keller given to patient per Dr. Serrano. All belongings with patient. Patient assisted off of unit via wheelchair. Patient's picked her up at the ER entrance
--- NOTE | 2020-05-25 12:28 | DS ---
DATE OF DISCHARGE: 05/25/2020 ADMISSION DIAGNOSIS: Chest pain. DISCHARGE DIAGNOSIS: Atypical chest pain. CONSULTS: Cardiology. PROCEDURES: None. HOSPITAL COURSE: The patient is a pleasant middle-aged female, who presented with chest pain. We admitted her, did serial enzymes, serial EKGs. We consulted Cardiology. She was taken for a stress test, which was apparently negative. This morning, I saw her and examined her. She was up and alert, requesting discharge. Heart tones are normal. Lungs are clear. We plan to discharge. DISPOSITION: Home. ACTIVITY: As tolerated. DIET: Low sodium. MEDICATIONS: Please see the MRAD. I did give her a prescription for some p.r.n. [place] 5 mg, #20, 1 q. 6 hours. TOTAL TIME: 34 minutes. LUCIO ANDINO DO DR: PAO/liliya JOB#: [id number] / [id number]
--- NOTE | 2020-05-30 12:19 | DS ---
DATE OF DISCHARGE: 05/25/2020 ADMISSION DIAGNOSIS: Chest pain. DISCHARGE DIAGNOSIS: Resolving chest pain with a negative myocardial perfusion imaging study. HOSPITAL COURSE: The patient is a pleasant 54-year-old female who presented with chest pain. We consulted Cardiology. Serial enzymes, serial EKGs. We took her for a stress test that was negative. We discharged to home. DISPOSITION: Home. ACTIVITY: As tolerated. DIET: Low sodium. MEDICATIONS: Please see the MRAD. TOTAL TIME: 35 minutes. LUCIO ANDINO DO DR: PAO/liliya JOB#: [id number] / [id number]
== END 2020-05-25 12:05 | disposition home or self-care (01) | DRG 313 ==
LOC: ER 16:37 → 2 SOUTH 19:26
PROVIDERS: ADMIT Internal Medicine; ATTEND Internal Medicine
DX: R07.89 Other chest pain (principal); E78.00 Pure hypercholesterolemia, unspecified; E78.5 Hyperlipidemia, unspecified; F32.9 Major depressive disorder, single episode, unspecified; F41.9 Anxiety disorder, unspecified; G62.9 Polyneuropathy, unspecified; J44.9 Chronic obstructive pulmonary disease, unspecified; K21.9 Gastro-esophageal reflux disease without esophagitis; Z83.3 Family history of diabetes mellitus; Z87.891 Personal history of nicotine dependence; G89.29 Other chronic pain; Z79.899 Other long term (current) drug therapy; Z86.14 Personal history of Methicillin resistant Staphylococcus aureus infection; Z88.8 Allergy status to other drugs, medicaments and biological substances
CPT/HCPCS: 36415; 71045; 78452; 80053; 80307; 81001; 82553; 83735; 83880; 84443; 84484; 85025; 93005; 93017; 96374; 96375; 96376; A9500; J2270; J2785; 99285-25; G0378

== ENCOUNTER 2020-06-05 12:49 | Emergency (ER) | payer SELFPAY ==
[~2020-06-05] VITALS: Ht 165.1 cm; Wt 77.0 kg
[2020-06-05 13:20] VITALS: BP 147/91
[2020-06-05] MEDS ORDERED: traMADol 50 MG TABLET PO ONE (13:30)
[2020-06-05] MEDS ORDERED: ACET1TAB33 PO (14:20)
--- NOTE | 2020-06-05 14:23 | PHYS DOC ---
Past Medical History Past Medical History: COPD, Depression, GERD, High Cholesterol, Pneumonia, Sciatica, Other Additional Past Medical Histor: chronic pain, CELLULITIS (RICHARD MCELROY MANAGER TECHNICAL TRAINING) Past Surgical History: Other Additional Past Surgical Histo: back, left arm (RICHARD MCELROY MANAGER TECHNICAL TRAINING) Smoking Status: Unknown if ever smoked Alcohol Use: None Drug Use: None (RICHARD MCELROY MANAGER TECHNICAL TRAINING) General Adult EDM: Chief Complaint: BACK PAIN - NO INJURY HPI: HPI: Patient is a 54 year old female who presents with here frequently for her chronic pain. Patient is always asking for prescription for tramadol and pain medications. Patient recently moved back from [place]. Patient comes in today stating that she rolled out of bed which was 3 foot off the ground and fell injuring her lower back and her coccyx area. She is rating her pain a 7 out of 10. Patient is also asking that Jenny nurse practitioner see her today. Patient patient has tenderness with palpation to her mid lower back/coccyx area. There is no bruising or swelling. Patient is ambulatory with a steady gait. She is up frequently out of the room asking nurse for food and drinks. She denies numbness or tingling, focal weakness, loss of bowel bladder, abdominal pain, nausea, vomiting, diarrhea, fever, chest pain, shortness of breath, hitting her head, LOC, dizziness, headache, neck pain. She is full range of motion of her neck and no focal bony spinal tenderness until I get to her lower lumbar coccyx area with palpation. Patient has a history of COPD, chronic pain, drug-seeking, sciatica, depression, cellulitis, GERD, high cholesterol. (RICHARD MCELROY MANAGER TECHNICAL TRAINING) Review of Systems: Review of Systems: Constitutional: Denies fever or chills. [] Eyes: Denies change in visual acuity. [] HENT: Denies nasal congestion or sore throat. [] Respiratory: Denies cough or shortness of breath. [] Cardiovascular: Denies chest pain or edema. [] GI: Denies abdominal pain, nausea, vomiting, bloody stools or diarrhea. [] : Denies dysuria. [] Musculoskeletal: Coccyx, lower back pain or joint pain. [] Integument: Denies rash. [] Neurologic: Denies headache, focal weakness or sensory changes. [] Endocrine: Denies polyuria or polydipsia. [] Lymphatic: Denies swollen glands. [] Psychiatric: Denies depression or anxiety. [] (RICHARD MCELROY MANAGER TECHNICAL TRAINING) Heart Score: Risk Factors: Risk Factors: DM, Current or recent (<one month) smoker, HTN, HLP, family history of CAD, obesity. Risk Scores: Score 0 - 3: 2.5% MACE over next 6 weeks - Discharge Home Score 4 - 6: 20.3% MACE over next 6 weeks - Admit for Clinical Observation Score 7 - 10: 72.7% MACE over next 6 weeks - Early Invasive Strategies (RICHARD MCELROY MANAGER TECHNICAL TRAINING) Current Medications: Current Medications Medications (Trade) Dose Ordered Sig/Jayy Start Time Stop Time Status Last Admin Dose Admin Tramadol HCl (Ultram) 50 mg 1X ONCE 06/05/20 13:30 06/05/20 13:33 DC 06/05/20 14:10 50 MG (RICHARD MCELROY MANAGER TECHNICAL TRAINING) Allergies: Allergies: Allergies Coded Allergies Type Severity Reaction Last Updated Verified ibuprofen Allergy Intermediate rash, TOLERATES KETOROLAC 04/08/18 Yes naproxen Allergy Intermediate rash, TOLERATES KETOROLAC 04/08/18 Yes diclofenac Adverse Reaction Intermediate n/v 05/12/19 Yes (RICHARD MCELROY MANAGER TECHNICAL TRAINING) Physical Exam: PE: Constitutional: Well developed, well nourished, no acute distress, non-toxic appearance. [] HENT: Normocephalic, atraumatic, bilateral external ears normal, oropharynx moist, no oral exudates, nose normal. [] Eyes: PERRLA, EOMI, conjunctiva normal, no discharge. [] Neck: Normal range of motion, no tenderness, supple, no stridor. [] Cardiovascular:Heart rate regular rhythm, no murmur [] Lungs & Thorax: Bilateral breath sounds clear to auscultation [] Abdomen: Bowel sounds normal, soft, no tenderness, no masses, no pulsatile masses. [] Skin: Warm, dry, no erythema, no rash. [] Back: Mid low back, coccyx tenderness, no CVA tenderness. [] Extremities: No tenderness, no cyanosis, no clubbing, ROM intact, no edema. [] Neurologic: Alert and oriented X 3, normal motor function, normal sensory function, no focal deficits noted. [] Psychologic: Affect normal, judgement normal, mood normal. [] (RICHARD MCELROY APRN) Current Patient Data: Vital Signs: Vital Signs Date Time Temp Pulse Resp B/P (MAP) Pulse Ox O2 Delivery O2 Flow Rate FiO2 06/05/20 13:20 98.6 90 16 147/91 (109) 96 98.6 (RICHARD MCELROY APRN) EKG: EKG: [] (RICHARD MCELROY APRN) Radiology/Procedures: Radiology/Procedures: [] Impression: [facility] [address] [place], [place] [id number] IMAGING REPORT Signed PATIENT: AMADOR GLASERCOUNT: [id number] : 1965 LOCATION: ER AGE: 54 SEX: F EXAM STATUS: REG ER ORD. PHYSICIAN: RICHARD MCELROY APRN REASON: PAIN, FELL OUT OF BED PROCEDURE: LUMBAR SPINE 2-3V SACRUM COCCYX 3V, LUMBAR SPINE 2-3V History: Reason: PAIN, FELL OUT OF BED / Spl. Instructions: / History: Technique: 3 views lumbar spine and 3 views of the sacrum and coccyx. Comparison: CT November 11, 2012. Lumbar spine radiograph May 01, 2019 Findings: Mild retrolisthesis L4 on L5 and L5-S1. Moderate multilevel degenerative disc changes most prominent L1-L2, L2-L3 and L5-S1. Normal vertebral body height. No fracture. Unchanged mild posterior displacement of the coccyx in relation to the sacrum with slight angulation compared to 2019. Impression: 1. No acute osseous abnormality. 2. Moderate multilevel lumbar spondylosis. Electronically signed by: Jorge Carson DO (06/05/2020 3:10 PM) [facility] DICTATED and SIGNED BY: JORGE CARSON DO DATE: 06/05/20 1510 (RICHARD MCELROY APRN) Course & Med Decision Making: Course & Med Decision Making Pertinent Labs and Imaging studies reviewed. (See chart for details) Patient is given 1 tramadol in the ED. See HPI. No unilateral lower leg swelling. Patient is educated about pain management and getting a primary care physician. Xrays read by Dr Abernathy as no acute findings. [] (RICHARD MCELROY APRN) Zeus Disclaimer: Zeus Disclaimer: This electronic medical record was generated, in whole or in part, using a voice recognition dictation system. (RICHARD MCELROY APRN) Departure Departure Impression: Primary Impression: Fall Qualified Codes: W19.XXXA - Unspecified fall, initial encounter Additional Impressions: Drug-seeking behavior Back pain Qualified Codes: M54.5 - Low back pain Disposition: HOME, SELF-CARE Condition: STABLE Referrals: NO PCP (PCP) STU SPENCER MD Patient Instructions: Chronic Back Pain, Chronic Pain Management-Brief, Fall Prevention and Home Safety, [id number] Additional Instructions: Get a primary care physician as soon as possible. Need to return to pain management or physical therapy for your back. Take medication as prescribed. Use a heating pad or ice to help with your pain. Scripts Orphenadrine Citrate (ORPHENADRINE CITRATE) 100 Mg Tablet.er 1 TAB PO BID, #14 TAB Prov: RICHARD MCELROY APR06/05/20 Acetaminophen With Codeine (ACETAMINOPHEN-COD #3 TABLET) 1 Each Tablet 1 TAB PO PRN Q6HRS PRN for PAIN, #5 TAB Prov: RICHARD MCELROY APR06/05/20 Justicifation of Admission Dx: Justifications for Admission: Justification of Admission Dx: N/A (RICHARD MCELROY APRN) Attending Signature Attending Signature I have reviewed the PA/GRIEF COUNSELLOR's note and plan of care. I was available for consultation as needed at all times during the patient's visit in the emergency department. I agree with the clinical impression, plan and disposition. (MARIA D ABERNATHY DO) RICHARD MCELROY APRN Jun 05, 2020 14:23 MARIA D ABERNATHY DO Jun 07, 2020 09:17
[2020-06-05] MEDS ORDERED: ORPH100T PO (15:08)
--- NOTE | 2020-06-05 15:13 | RAD ---
SACRUM COCCYX 3V, LUMBAR SPINE 2-3V History: Reason: PAIN, FELL OUT OF BED / Spl. Instructions: / History: Technique: 3 views lumbar spine and 3 views of the sacrum and coccyx. Comparison: CT November 11, 2012. Lumbar spine radiograph May 01, 2019 Findings: Mild retrolisthesis L4 on L5 and L5-S1. Moderate multilevel degenerative disc changes most prominent L1-L2, L2-L3 and L5-S1. Normal vertebral body height. No fracture. Unchanged mild posterior displacement of the coccyx in relation to the sacrum with slight angulation compared to 2019. Impression: 1. No acute osseous abnormality. 2. Moderate multilevel lumbar spondylosis. Electronically signed by: Jorge Carson DO (06/05/2020 3:10 PM) TESSA
== END 2020-06-05 15:43 | disposition home or self-care (01) ==
LOC: ER 12:49
DX: M54.5 Low back pain (principal); Z76.5 Malingerer [conscious simulation]; G89.11 Acute pain due to trauma; M54.6 Pain in thoracic spine; G89.29 Other chronic pain; J44.9 Chronic obstructive pulmonary disease, unspecified; K21.9 Gastro-esophageal reflux disease without esophagitis; E78.00 Pure hypercholesterolemia, unspecified; Z98.890 Other specified postprocedural states; W06.XXXA Fall from bed, initial encounter; Y93.89 Activity, other specified; Y92.89 Other specified places as the place of occurrence of the external cause; Y99.8 Other external cause status
CPT/HCPCS: 72100; 72220; 99284

== ENCOUNTER 2020-06-07 13:29 | Emergency (ER) | payer SELFPAY ==
[~2020-06-07] VITALS: Ht 165.1 cm; Wt 77.2 kg
[~2020-06-07 13:29] MED LIST changes: +ACET1TAB33 PO
[2020-06-07] MEDS ORDERED: ASPIRIN 325 MG TABLET PO ONE (15:15)
[2020-06-07] MEDS ORDERED: NITROGLYCERIN SUBLINGUAL 0.4 MG BOTTLE OF 25. SL PRN (15:15)
[2020-06-07] MEDS ORDERED: LIDO:MAALOX 1:1 20 ML SINGLE DOSE. SWSW ONE (15:15)
--- NOTE | 2020-06-07 15:47 | RAD ---
INDICATION: Reason: chest pain / Spl. Instructions: / History: COMPARISON: May 23, 2020 FINDINGS: Single view of chest obtained. Cardiac silhouette is similar to prior. Appearance the lungs is similar to prior without a definite new region of consolidation. IMPRESSION: * Similar appearance the chest compared to prior without a definite new region of consolidation. Electronically signed by: Kulwant Viveros MD (06/07/2020 3:44 PM) [id number]
[2020-06-07] MEDS: MORPHINE SULFATE 4 MG/ML VIAL. IV/SQ PRN ×2 (15:48→16:48)
[2020-06-07 15:51] LABS: BASO # 0.1 x10^3/uL (0.0-0.2); BASO % 1 % (0-3); EOS # 0.3 x10^3/uL (0.0-0.7); EOS % 4 % (0-3); HEMOGLOBIN 12.1 g/dL (12.0-15.5); LYMPH # 2.3 x10^3/uL (1.0-4.8); LYMPH % 31 % (24-48); MEAN CORPUSCULAR HEMOGLOBIN 31 pg (25-35); MEAN CORPUSCULAR HGB CONC 34 g/dL (31-37); MEAN CORPUSCULAR VOLUME 92 fL (79-100); MONO # 0.5 x10^3/uL (0.0-1.1); MONO % 7 % (0-9); NEUT # 4.1 x10^3/uL (1.8-7.7); NEUT % 57 % (31-73); PLATELET COUNT 315 x10^3/uL (140-400); RED BLOOD COUNT 3.91 x10^6/uL (3.50-5.40); WHITE BLOOD COUNT 7.3 x10^3/uL (4.0-11.0)
[2020-06-07 16:00] LABS: CALCIUM 8.9 mg/dL (8.5-10.1); CREATININE 0.8 mg/dL (0.6-1.0); GFR 74.7; POTASSIUM 4.7 mmol/L (3.5-5.1)
[2020-06-07 16:05] LABS: ALBUMIN 3.5 g/dL (3.4-5.0); TOTAL BILIRUBIN 0.3 mg/dL (0.2-1.0)
[2020-06-07 16:06] LABS: PROTHROMBIN TIME PATIENT 12.3 SEC (11.7-14.0)
[2020-06-07 16:11] VITALS: BP 117/72
[2020-06-07] MEDS ORDERED: GABA300C18 PO (16:53)
[2020-06-07] MEDS ORDERED: CYCL10TA2 PO (16:53)
--- NOTE | 2020-06-07 16:54 | PHYS DOC ---
Past Medical History Past Medical History: COPD, Depression, GERD, High Cholesterol, Pneumonia, Sciatica, Other Additional Past Medical Histor: chronic pain, CELLULITIS Past Surgical History: Other Additional Past Surgical Histo: back, left arm Smoking Status: Unknown if ever smoked Alcohol Use: None Drug Use: None General Adult EDM: Chief Complaint: CHEST PAIN-NON CARDIAC NATURE HPI: HPI: Patient is a 54 year old female with history of high cholesterol, COPD, sciatica, chronic low back pain, presenting today complaining of 8 out of 10 substernal chest pain nonradiating in nature as well as chronic low back pain that began 2 days ago. Patient denies any injuries. Describes the pain as sharp. Denies any exacerbating or relieving factors to her chest pain but states movement worsens her back pain. Denies any nausea, vomiting. Denies any injuries. Patient reports low back pain radiating to bilateral lower extremities, denies any loss of bowel/bladder function. Review of Systems: Review of Systems: Constitutional: Denies fever or chills. [] Eyes: Denies change in visual acuity. [] HENT: Denies nasal congestion or sore throat. [] Respiratory: Denies cough or shortness of breath. [] Cardiovascular: Denies chest pain or edema. [] GI: Denies abdominal pain, nausea, vomiting, bloody stools or diarrhea. [] : Denies dysuria. [] Musculoskeletal: Reports low back pain Integument: Denies rash. [] Neurologic: Denies headache, focal weakness or sensory changes. [] Psychiatric: Denies depression or anxiety. [] Heart Score: HEART Score for Chest Pain: HEART Score for Chest Pain Response (Comments) Value History Slighlty/Non-Suspicious 0 ECG Normal 0 Age >45 - < 65 1 Risk Factors 1 or 2 Risk Factors 1 Troponin < Normal Limit 0 Total 2 Risk Factors: Risk Factors: DM, Current or recent (<one month) smoker, HTN, HLP, family history of CAD, obesity. Risk Scores: Score 0 - 3: 2.5% MACE over next 6 weeks - Discharge Home Score 4 - 6: 20.3% MACE over next 6 weeks - Admit for Clinical Observation Score 7 - 10: 72.7% MACE over next 6 weeks - Early Invasive Strategies Current Medications: Current Medications Medications (Trade) Dose Ordered Sig/Jayy Start Time Stop Time Status Last Admin Dose Admin Aspirin (Anthony Aspirin) 325 mg 1X ONCE 06/07/20 15:15 06/07/20 15:16 DC 06/07/20 15:47 325 MG Morphine Sulfate (Morphine Sulfate) 4 mg PRN Q15MIN PRN 06/07/20 15:15 06/08/20 15:14 06/07/20 15:48 4 MG Multi-Ingredient Mouthwash/Gargle (Gi Cocktail) 20 ml 1X ONCE 06/07/20 15:15 06/07/20 15:16 DC 06/07/20 15:48 20 ML Nitroglycerin (Nitrostat) 0.4 mg PRN Q5MIN PRN 06/07/20 15:15 06/08/20 15:14 06/07/20 15:47 0.4 MG Allergies: Allergies: Allergies Coded Allergies Type Severity Reaction Last Updated Verified ibuprofen Allergy Intermediate rash, TOLERATES KETOROLAC 04/08/18 Yes naproxen Allergy Intermediate rash, TOLERATES KETOROLAC 04/08/18 Yes diclofenac Adverse Reaction Intermediate n/v 05/12/19 Yes Physical Exam: PE: Constitutional: Well developed, well nourished, no acute distress, non-toxic appearance. [] HENT: Normocephalic, atraumatic, bilateral external ears normal, oropharynx moist, no oral exudates, nose normal. [] Eyes: PERRLA, EOMI, conjunctiva normal, no discharge. [] Neck: Normal range of motion, no tenderness, supple, no stridor. [] Cardiovascular:Heart rate regular rhythm, no murmur [] Lungs & Thorax: Bilateral breath sounds clear to auscultation [] Abdomen: Bowel sounds normal, soft, no tenderness, no masses, no pulsatile masses. [] Skin: Warm, dry, no erythema, no rash. [] Back: No tenderness, no CVA tenderness. [] Extremities: No tenderness, no cyanosis, no clubbing, ROM intact, no edema. [] Neurologic: Alert and oriented X 3, normal motor function, normal sensory function, no focal deficits noted. [] Psychologic: Affect normal, judgement normal, mood normal. [] Current Patient Data: Labs: Laboratory Tests Test 06/07/20 15:40 White Blood Count 7.3 x10^3/uL (4.0-11.0) Red Blood Count 3.91 x10^6/uL (3.50-5.40) Hemoglobin 12.1 g/dL (12.0-15.5) Hematocrit 36.0 % (36.0-47.0) Mean Corpuscular Volume 92 fL (79-100) Mean Corpuscular Hemoglobin 31 pg (25-35) Mean Corpuscular Hemoglobin Concent 34 g/dL (31-37) Red Cell Distribution Width 15.0 % (11.5-14.5) H Platelet Count 315 x10^3/uL (140-400) Neutrophils (%) (Auto) 57 % (31-73) Lymphocytes (%) (Auto) 31 % (24-48) Monocytes (%) (Auto) 7 % (0-9) Eosinophils (%) (Auto) 4 % (0-3) H Basophils (%) (Auto) 1 % (0-3) Neutrophils # (Auto) 4.1 x10^3/uL (1.8-7.7) Lymphocytes # (Auto) 2.3 x10^3/uL (1.0-4.8) Monocytes # (Auto) 0.5 x10^3/uL (0.0-1.1) Eosinophils # (Auto) 0.3 x10^3/uL (0.0-0.7) Basophils # (Auto) 0.1 x10^3/uL (0.0-0.2) Prothrombin Time 12.3 SEC (11.7-14.0) Prothrombin Time INR 1.0 (0.8-1.1) Sodium Level 137 mmol/L (136-145) Potassium Level 4.7 mmol/L (3.5-5.1) Chloride Level 104 mmol/L (98-107) Carbon Dioxide Level 28 mmol/L (21-32) Anion Gap 5 (6-14) L Blood Urea Nitrogen 18 mg/dL (7-20) Creatinine 0.8 mg/dL (0.6-1.0) Estimated GFR (Cockcroft-Gault) 74.7 BUN/Creatinine Ratio 23 (6-20) H Glucose Level 89 mg/dL (70-99) Calcium Level 8.9 mg/dL (8.5-10.1) Magnesium Level 2.0 mg/dL (1.8-2.4) Total Bilirubin 0.3 mg/dL (0.2-1.0) Aspartate Amino Transferase (AST) 10 U/L (15-37) L Alanine Aminotransferase (ALT) 18 U/L (14-59) Alkaline Phosphatase 93 U/L (46-116) Troponin I Quantitative < 0.017 ng/mL (0.000-0.055) RP-Cwk-X-Type Natriuretic Peptide 152 pg/mL (0-124) H Total Protein 7.0 g/dL (6.4-8.2) Albumin 3.5 g/dL (3.4-5.0) Albumin/Globulin Ratio 1.0 (1.0-1.7) Thyroid Stimulating Hormone (TSH) 0.856 uIU/mL (0.358-3.74) Laboratory Tests 06/07/20 15:40 Laboratory Tests 06/07/20 15:40 Vital Signs: Vital Signs Date Time Temp Pulse Resp B/P (MAP) Pulse Ox O2 Delivery O2 Flow Rate FiO2 06/07/20 15:48 Room Air 06/07/20 15:47 69 143/86 06/07/20 15:14 97.7 20 96 97.7 EKG: EKG: [] Radiology/Procedures: Radiology/Procedures: []PROCEDURE: PORTABLE CHEST 1V INDICATION: Reason: chest pain / Spl. Instructions: / History: COMPARISON: May 23, 2020 FINDINGS: Single view of chest obtained. Cardiac silhouette is similar to prior. Appearance the lungs is similar to prior without a definite new region of consolidation. IMPRESSION: * Similar appearance the chest compared to prior without a definite new region of consolidation. Electronically signed by: Dolly Viveros MD (06/07/2020 3:44 PM) [id number] DICTATED and SIGNED BY: DOLLY VIVEROS MD DATE: 06/07/20 1544 Course & Med Decision Making: Course & Med Decision Making Pertinent Labs and Imaging studies reviewed. (See chart for details) This is a 54-year-old female patient well-known to this ED presenting today complaining of chest pain as well as low back pain. Patient has been worked up for her chest pain multiple times with no acute findings. EKG is negative toda y, troponin is normal, CBC CMP with no acute findings. Chest x-ray is negative. Patient will be discharged home to follow-up with her own PCP. Dragon Disclaimer: Zeus Disclaimer: This electronic medical record was generated, in whole or in part, using a voice recognition dictation system. Departure Departure Impression: Primary Impression: Chest pain Qualified Codes: R07.9 - Chest pain, unspecified Additional Impression: Chronic low back pain Qualified Codes: M54.42 - Lumbago with sciatica, left side; M54.41 - Lumbago with sciatica, right side; G89.29 - Other chronic pain Disposition: HOME, SELF-CARE Condition: STABLE Referrals: NO PCP (PCP) CRISTIAN MACKEY MD follow up in 1-2 weeks Patient Instructions: Back Pain, Adult, [id number], Chest Pain (Nonspecific)- Brief Additional Instructions: You were seen for chronic back pain and chest pain. Please follow-up with your own doctor as well as the provided division controller as soon as possible. Scripts Cyclobenzaprine Hcl (CYCLOBENZAPRINE HCL) 10 Mg Tablet 1 TAB PO TID, #30 TAB Prov: MEMO NELSON APRN 06/07/20 Gabapentin (GABAPENTIN ) 300 Mg Capsule 300 MG PO TID for NEUROGENIC PAIN, #30 CAP Prov: MEMO NELSON APRN 06/07/20 Justicifation of Admission Dx: Justifications for Admission: Justification of Admission Dx: N/A MEMO NELSON APRN Jun 07, 2020 16:54
--- NOTE | 2020-06-10 07:05 | EKG ---
[facility] [address] [place] [address] Test Date: 2020-06-07 Test Time: 13:35:57 Pat Name: JACKY GLASER Department: Room: Gender: F Strapper: : 1965 Requested By: MEMO NELSON Order Number: [id number] Reading MD: Measurements Intervals [place] Rate: 81 P: 22 WV: 154 QRS: 33 QRSD: 80 T: 26 QT: 356 QTc: 414 Interpretive Statements SINUS RHYTHM NORMAL ECG RI6.02 No previous ECG available for comparison
== END 2020-06-07 17:16 | disposition home or self-care (01) ==
LOC: ER 13:29
DX: R07.89 Other chest pain (principal); M54.41 Lumbago with sciatica, right side; M54.42 Lumbago with sciatica, left side; G89.29 Other chronic pain; J44.9 Chronic obstructive pulmonary disease, unspecified; F32.9 Major depressive disorder, single episode, unspecified; K21.9 Gastro-esophageal reflux disease without esophagitis; E78.00 Pure hypercholesterolemia, unspecified; Z98.890 Other specified postprocedural states; Z88.6 Allergy status to analgesic agent; Z88.8 Allergy status to other drugs, medicaments and biological substances
CPT/HCPCS: 36415; 71045; 80053; 83735; 83880; 84443; 84484; 85025; 85610; 93005; 96374; 96376; 99285; J2270

== ENCOUNTER 2020-06-30 13:00 | Emergency (ER) | payer SELFPAY ==
[~2020-06-30] VITALS: Ht 165.1 cm; Wt 150.0 kg
[2020-06-30 13:20] VITALS: BP 117/64
[2020-06-30] MEDS ORDERED: NITROGLYCERIN SUBLINGUAL 0.4 MG BOTTLE OF 25. SL PRN (13:30)
[2020-06-30 13:43] LABS: BASO # 0.1 x10^3/uL (0.0-0.2); BASO % 1 % (0-3); EOS # 0.3 x10^3/uL (0.0-0.7); EOS % 4 % (0-3); HEMATOCRIT 30.5 % (36.0-47.0); HEMOGLOBIN 10.4 g/dL (12.0-15.5); LYMPH # 2.5 x10^3/uL (1.0-4.8); LYMPH % 29 % (24-48); MEAN CORPUSCULAR HEMOGLOBIN 31 pg (25-35); MEAN CORPUSCULAR HGB CONC 34 g/dL (31-37); MEAN CORPUSCULAR VOLUME 92 fL (79-100); MONO # 0.6 x10^3/uL (0.0-1.1); MONO % 7 % (0-9); NEUT # 5.2 x10^3/uL (1.8-7.7); NEUT % 60 % (31-73); PLATELET COUNT 383 x10^3/uL (140-400); RED BLOOD COUNT 3.33 x10^6/uL (3.50-5.40); RED CELL DISTRIBUTION WIDTH 15.1 % (11.5-14.5); WHITE BLOOD COUNT 8.6 x10^3/uL (4.0-11.0)
[2020-06-30 13:45] LABS: BILIRUBIN,URINE NEGATIVE (NEG); CLARITY,URINE CLEAR; COLOR,URINE YELLOW; NITRITE,URINE NEGATIVE (NEG); PH,URINE 6.5 (<5.0-8.0); PROTEIN,URINE NEGATIVE (NEG-TRACE); UROBILINOGEN,URINE 0.2 mg/dL (0.2 mg/dL)
[2020-06-30] MEDS ORDERED: ASPIRIN 325 MG TABLET PO ONE (13:45)
[2020-06-30 13:54] LABS: SQUAMOUS EPITHELIAL CELL,UR FEW /LPF
[2020-06-30 13:55] LABS: BACTERIA,URINE 0 /HPF (0-FEW); RBC,URINE 0 /HPF (0-2); WBC,URINE 0 /HPF (0-4)
[2020-06-30 14:00] LABS: CALCIUM 8.6 mg/dL (8.5-10.1); CREATININE 0.7 mg/dL (0.6-1.0); GFR 87.2; POTASSIUM 3.8 mmol/L (3.5-5.1)
[2020-06-30 14:01] LABS: PROTHROMBIN TIME PATIENT 12.3 SEC (11.7-14.0)
[2020-06-30 14:06] LABS: ALBUMIN 3.1 g/dL (3.4-5.0); ALBUMIN/GLOBULIN RATIO 0.9 (1.0-1.7); TOTAL BILIRUBIN 0.3 mg/dL (0.2-1.0); TOTAL PROTEIN 6.6 g/dL (6.4-8.2)
[2020-06-30 14:11] LABS: CREATINE KINASE 72 U/L (26-192)
--- NOTE | 2020-06-30 14:17 | RAD ---
CHEST AP ONLY Clinical indications: Chest pain. COMPARISON: May 30, 2020. Findings: There is new bilateral interstitial pulmonary edema or central interstitial lung infiltrates. No lung consolidation or pleural effusion or pneumothorax is seen. The heart size, pulmonary vasculature, mediastinum and both eduarda are stable. Impression: New bilateral interstitial pulmonary edema or central interstitial lung infiltrates. Electronically signed by: Ike Polanco MD (06/30/2020 2:14 PM) [id number]
[2020-06-30] MEDS ORDERED: traMADol 50 MG TABLET PO ONE (14:30)
--- NOTE | 2020-06-30 15:13 | RAD ---
PROCEDURE: LUMBAR SPINE 2-3V, THORACIC SPINE 3V STUDY DATE: 06/30/2020 CLINICAL INDICATION / HISTORY: Reason: mid to low back pain and left paraspinal pain after fall 4 days ago / Spl. Instructions: / History: . TECHNIQUE: Thoracic spine was examined in the AP lateral and swimmers projections. COMPARISON: L-spine x-rays same day FINDINGS: The osseous structures are normally mineralized. There is a normal thoracic kyphosis with normal alignment of the thoracic vertebral bodies. There is preservation of the vertebral body heights but there is mild loss of disc height throughout the thoracic spine. No evidence of acute fracture or subluxation is identified. IMPRESSION: Degenerative changes of the thoracic spine without traumatic malalignment or acute fracture. PROCEDURE: LUMBAR SPINE 2-3V, THORACIC SPINE 3V STUDY DATE: 06/30/2020 CLINICAL INDICATION / HISTORY: Reason: mid to low back pain and left paraspinal pain after fall 4 days ago / Spl. Instructions: / History: . TECHNIQUE: AP, lateral and coned-down lateral views of the lumbar spine were obtained COMPARISON: 06/05/2020 FINDINGS: Five lumbar segments are identified. Lumbar vertebral bodies are normal in height. There is subtle retrolisthesis of L5 on S1 and straightening of the rest of the lumbar spine.. Disc height is narrowed at L4-L5 and at L5-S1 and to a lesser extent at L1-L2 and L2-L3.. Pedicles are intact. IMPRESSION: Lumbar spinal degenerative changes but no fracture or malalignment shown. Electronically signed by: Thelma Tirado MD (06/30/2020 3:10 PM) [facility] [place]
--- NOTE | 2020-06-30 15:28 | PHYS DOC ---
Past Medical History Past Medical History: COPD, Depression, GERD, High Cholesterol, Pneumonia, Sciatica, Other Additional Past Medical Histor: chronic pain, CELLULITIS Past Surgical History: Other Additional Past Surgical Histo: back, left arm Smoking Status: Unknown if ever smoked Alcohol Use: None Drug Use: None General Adult EDM: Chief Complaint: DYSPNEA/RESPIRATOY DISTRESS HPI: HPI: Patient is a 54 year old female, well-known to this emergency department, who presents with complaints of mid to low back pain after a fall that happened 4 days ago, and pain in the left side of her chest that has resolved since arrival to the ER. The patient denies any fever, cough, shortness of breath, wheezing, nausea, vomiting, diarrhea, abdominal pain, rash, or headache at this time. The patient states she would like a tramadol for her pain. She denies any dysuria, hematuria, increased urinary frequency, saddle anesthesia, or incontinence of bowel or bladder. She currently rates her pain a 10 out of 10 on the pain scale, she denies any alleviating factors, her back pain is worse with palpation and movement. She denies any radiation of the pain or complaints of pain in her lower extremities. Review of Systems: Review of Systems: Constitutional: Denies fever or chills. [] Eyes: Denies change in visual acuity. [] HENT: Denies nasal congestion or sore throat. [] Respiratory: Denies cough or shortness of breath. [] Cardiovascular: Denies chest pain or edema. [] GI: Denies abdominal pain, nausea, vomiting, bloody stools or diarrhea. [] : Denies dysuria. [] Musculoskeletal: Denies back pain or joint pain. [] Integument: Denies rash. [] Neurologic: Denies headache, focal weakness or sensory changes. [] Endocrine: Denies polyuria or polydipsia. [] Lymphatic: Denies swollen glands. [] Psychiatric: Denies depression or anxiety. [] Heart Score: HEART Score for Chest Pain: HEART Score for Chest Pain Response (Comments) Value History Slighlty/Non-Suspicious 0 ECG Normal 0 Age >45 - < 65 1 Risk Factors 1 or 2 Risk Factors 1 Troponin < Normal Limit 0 Total 2 Risk Factors: Risk Factors: DM, Current or recent (<one month) smoker, HTN, HLP, family history of CAD, obesity. Risk Scores: Score 0 - 3: 2.5% MACE over next 6 weeks - Discharge Home Score 4 - 6: 20.3% MACE over next 6 weeks - Admit for Clinical Observation Score 7 - 10: 72.7% MACE over next 6 weeks - Early Invasive Strategies Current Medications: Current Medications Medications (Trade) Dose Ordered Sig/Jayy Start Time Stop Time Status Last Admin Dose Admin Aspirin (Anthony Aspirin) 325 mg 1X ONCE 06/30/20 13:45 06/30/20 13:46 DC 06/30/20 13:56 325 MG Nitroglycerin (Nitrostat) 0.4 mg PRN Q5MIN PRN 06/30/20 13:30 Tramadol HCl (Ultram) 50 mg 1X ONCE 06/30/20 14:30 06/30/20 14:31 DC 06/30/20 14:51 50 MG Allergies: Allergies: Allergies Coded Allergies Type Severity Reaction Last Updated Verified ibuprofen Allergy Intermediate rash, TOLERATES KETOROLAC 04/08/18 Yes ketorolac Allergy Intermediate Unknown 06/30/20 Yes naproxen Allergy Intermediate rash, TOLERATES KETOROLAC 04/08/18 Yes diclofenac Adverse Reaction Intermediate n/v 05/12/19 Yes Physical Exam: PE: Constitutional: Well developed, well nourished, no acute distress, non-toxic appearance, obese. [] HENT: Normocephalic, atraumatic, bilateral external ears normal, nose normal. [] Eyes: PERRLA, EOMI, conjunctiva normal, no discharge. [] Neck: Normal range of motion, no stridor. [] Cardiovascular:Heart rate regular rhythm Lungs & Thorax: Lung sounds diminished in bilateral bases otherwise clear, respirations even and unlabored, no retractions, no respiratory distress Abdomen: soft, no tenderness Back: Diffuse tenderness to thoracic and lumbar spine without obvious deformity, or crepitus, left thoracic and lumbar paraspinal tenderness to palpation, no bruising or erythema Skin: Warm, dry, no erythema, no rash. [] Extremities: No cyanosis, ROM intact, no edema. [] Neurologic: Alert and oriented X 3, no focal deficits noted. [] Psychologic: Affect normal, judgement normal, mood normal. [] Current Patient Data: Labs: Laboratory Tests Test 06/30/20 12:09 06/30/20 13:30 Urine Collection Type Unknown Urine Color Yellow Urine Clarity Clear Urine pH 6.5 (<5.0-8.0) Urine Specific [place] 1.010 (1.000-1.030) Urine Protein Negative mg/dL (NEG-TRACE) Urine Glucose (UA) Negative mg/dL (NEG) Urine Ketones (Stick) Negative mg/dL (NEG) Urine Blood Negative (NEG) Urine Nitrite Negative (NEG) Urine Bilirubin Negative (NEG) Urine Urobilinogen Dipstick 0.2 mg/dL (0.2 mg/dL) Urine Leukocyte Esterase Negative (NEG) Urine RBC 0 /HPF (0-2) Urine WBC 0 /HPF (0-4) Urine Squamous Epithelial Cells Few /LPF Urine Bacteria 0 /HPF (0-FEW) White Blood Count 8.6 x10^3/uL (4.0-11.0) Red Blood Count 3.33 x10^6/uL (3.50-5.40) L Hemoglobin 10.4 g/dL (12.0-15.5) L Hematocrit 30.5 % (36.0-47.0) L Mean Corpuscular Volume 92 fL (79-100) Mean Corpuscular Hemoglobin 31 pg (25-35) Mean Corpuscular Hemoglobin Concent 34 g/dL (31-37) Red Cell Distribution Width 15.1 % (11.5-14.5) H Platelet Count 383 x10^3/uL (140-400) Neutrophils (%) (Auto) 60 % (31-73) Lymphocytes (%) (Auto) 29 % (24-48) Monocytes (%) (Auto) 7 % (0-9) Eosinophils (%) (Auto) 4 % (0-3) H Basophils (%) (Auto) 1 % (0-3) Neutrophils # (Auto) 5.2 x10^3/uL (1.8-7.7) Lymphocytes # (Auto) 2.5 x10^3/uL (1.0-4.8) Monocytes # (Auto) 0.6 x10^3/uL (0.0-1.1) Eosinophils # (Auto) 0.3 x10^3/uL (0.0-0.7) Basophils # (Auto) 0.1 x10^3/uL (0.0-0.2) Prothrombin Time 12.3 SEC (11.7-14.0) Prothrombin Time INR 1.0 (0.8-1.1) Activated Partial Thromboplast Time 26 SEC (24-38) Sodium Level 142 mmol/L (136-145) Potassium Level 3.8 mmol/L (3.5-5.1) Chloride Level 105 mmol/L (98-107) Carbon Dioxide Level 30 mmol/L (21-32) Anion Gap 7 (6-14) Blood Urea Nitrogen 15 mg/dL (7-20) Creatinine 0.7 mg/dL (0.6-1.0) Estimated GFR (Cockcroft-Gault) 87.2 BUN/Creatinine Ratio 21 (6-20) H Glucose Level 87 mg/dL (70-99) Calcium Level 8.6 mg/dL (8.5-10.1) Magnesium Level 2.0 mg/dL (1.8-2.4) Total Bilirubin 0.3 mg/dL (0.2-1.0) Aspartate Amino Transferase (AST) 13 U/L (15-37) L Alanine Aminotransferase (ALT) 24 U/L (14-59) Alkaline Phosphatase 66 U/L (46-116) Creatine Kinase 72 U/L (26-192) Creatine Kinase MB (Mass) < 0.5 ng/mL (0.0-3.6) Creatine Kinase MB Relative Index % (0-4) Troponin I Quantitative < 0.017 ng/mL (0.000-0.055) GR-Kuc-G-Type Natriuretic Peptide 673 pg/mL (0-124) H Total Protein 6.6 g/dL (6.4-8.2) Albumin 3.1 g/dL (3.4-5.0) L Albumin/Globulin Ratio 0.9 (1.0-1.7) L Lipase 43 U/L (73-393) L Laboratory Tests 06/30/20 13:30 Laboratory Tests 06/30/20 13:30 Vital Signs: Vital Signs Date Time Temp Pulse Resp B/P (MAP) Pulse Ox O2 Delivery O2 Flow Rate FiO2 06/30/20 14:51 18 98 06/30/20 13:20 97.3 97 117/64 (81) Room Air 97.3 EKG: EK-sinus rhythm rate of 85, no STEMI, read by Dr. Powell [] Radiology/Procedures: Radiology/Procedures: PROCEDURE: LUMBAR SPINE 2-3V PROCEDURE: LUMBAR SPINE 2-3V, THORACIC SPINE 3V STUDY DATE: 06/30/2020 CLINICAL INDICATION / HISTORY: Reason: mid to low back pain and left paraspinal pain after fall 4 days ago / Spl. Instructions: / History: . TECHNIQUE: Thoracic spine was examined in the AP lateral and swimmers projections. COMPARISON: L-spine x-rays same day FINDINGS: The osseous structures are normally mineralized. There is a normal thoracic kyphosis with normal alignment of the thoracic vertebral bodies. There is preservation of the vertebral body heights but there is mild loss of disc height throughout the thoracic spine. No evidence of acute fracture or subluxation is identified. IMPRESSION: Degenerative changes of the thoracic spine without traumatic malalignment or acute fracture. PROCEDURE: LUMBAR SPINE 2-3V, THORACIC SPINE 3V STUDY DATE: 06/30/2020 CLINICAL INDICATION / HISTORY: Reason: mid to low back pain and left paraspinal pain after fall 4 days ago / Spl. Instructions: / History: . TECHNIQUE: AP, lateral and coned-down lateral views of the lumbar spine were obtained COMPARISON: 06/05/2020 FINDINGS: Five lumbar segments are identified. Lumbar vertebral bodies are normal in height. There is subtle retrolisthesis of L5 on S1 and straightening of the rest of the lumbar spine.. Disc height is narrowed at L4-L5 and at L5-S1 and to a lesser extent at L1-L2 and L2-L3.. Pedicles are intact. IMPRESSION: Lumbar spinal degenerative changes but no fracture or malalignment shown. Electronically signed by: Thelma Tirado MD (06/30/2020 3:10 PM) [facility] [place]ED[place]: CHEST AP ONLY CHEST AP ONLY Clinical indications: Chest pain. COMPARISON: May 30, 2020. Findings: There is new bilateral interstitial pulmonary edema or central interstitial lung infiltrates. No lung consolidation or pleural effusion or pneumothorax is seen. The heart size, pulmonary vasculature, mediastinum and both eduarda are stable. Impression: New bilateral interstitial pulmonary edema or central interstitial lung infiltrates. [] Course & Med Decision Making: Course & Med Decision Making Pertinent Labs and Imaging studies reviewed. (See chart for details) 54-year-old female presents the emergency department with complaints of mid to low back pain after a fall 4 days ago. Upon arrival the patient reported dyspnea and chest pain that she denied throughout her time in the department. Work-up included EKG, chest x-ray, and lab work. EKG showed chronic changes no acute findings read by Dr. Powell. CBC revealed a hemoglobin of 10.4, hematocrit of 30.5, the patient has a history of anemia otherwise unremarkable; PT/INR within normal limits; CMP revealed elevated BUN/creatinine ratio 21 otherwise unremarkable patient's troponin is negative, BNP was 673; UA is unremarkable. Thoracic and lumbar x-rays were negative for any acute findings or fractures. Chest x-ray is concerning for new bilateral interstitial pulmonary edema however the patient was not hypoxic throughout her emergency department stay, her oxygen saturation remained 94 to 97% on room air, respirations were even and unlabored. Her only complaint was her back pain. The patient denied chest pain or shortness of breath on multiple occasions while in the department. I encouraged the patient to return to the emergency room if she develops shortness of breath or her chest pain returned. She was given 1 tramadol in the emergency department, she refused nitroglycerin and aspirin. Patient was encouraged to follow-up with her primary care doctor in the next 1 to 2 days, return to the ER if symptoms worsen. Patient verbalized an understanding of home care, medications, follow-up, and return to ED instructions and was in agreement with the plan of care. [] Fredyon Disclaimer: Dragon Disclaimer: This electronic medical record was generated, in whole or in part, using a voice recognition dictation system. Departure Departure Impression: Primary Impression: Chronic back pain Qualified Codes: M54.9 - Dorsalgia, unspecified; G89.29 - Other chronic pain Additional Impression: Fall Qualified Codes: W19.XXXA - Unspecified fall, initial encounter Disposition: HOME, SELF-CARE Condition: STABLE Referrals: NO PCP (PCP) Patient Instructions: Back Pain, Adult, [id number], Fall Prevention and Home Safety, [id number] Additional Instructions: Follow-up with your primary care doctor in 1-2 days for further evaluation of your chronic pain condition. Your x-rays were negative for any acute findings or fracture today. You can take Tylenol as needed for pain. Please return to the emergency room if your symptoms worsen. 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
--- NOTE | 2020-07-01 08:19 | EKG ---
[facility] [address] [place] [address] Test Date: 2020-06-30 Test Time: 13:20:49 Pat Name: JACKY GLASER Department: Room: Gender: F Claim Technician: ELICEO : 1965 Requested By: JEOVANNY STAHL Order Number: [id number] Reading MD: Measurements Intervals [place] Rate: 85 P: 32 SC: 146 QRS: 28 QRSD: 80 T: 20 QT: 372 QTc: 448 Interpretive Statements SINUS RHYTHM NORMAL ECG RI6.02 No previous ECG available for comparison
[2020-07-01] MEDS ORDERED: PRED20TA PO (11:22)
[2020-07-01] MEDS ORDERED: TRAM50TA PO (11:22)
== END 2020-06-30 15:36 | disposition home or self-care (01) ==
LOC: ER 13:00
DX: G89.11 Acute pain due to trauma (principal); M54.5 Low back pain; G89.29 Other chronic pain; R07.89 Other chest pain; J44.9 Chronic obstructive pulmonary disease, unspecified; K21.9 Gastro-esophageal reflux disease without esophagitis; F32.9 Major depressive disorder, single episode, unspecified; E78.00 Pure hypercholesterolemia, unspecified; Z98.890 Other specified postprocedural states; Z88.8 Allergy status to other drugs, medicaments and biological substances; Z88.6 Allergy status to analgesic agent; W18.39XA Other fall on same level, initial encounter; Y93.89 Activity, other specified; Y92.89 Other specified places as the place of occurrence of the external cause; Y99.8 Other external cause status
CPT/HCPCS: 36415; 71045; 72072; 72100; 80053; 81001; 82553; 83690; 83735; 83880; 84484; 85025; 85610; 85730; 93005; 99285

== ENCOUNTER 2020-07-01 08:40 | Emergency (ER) | payer SELFPAY ==
[~2020-07-01] VITALS: Ht 172.7 cm; Wt 90.0 kg
[2020-07-01] MEDS ORDERED: IPRATRPIUM/ALBUTEROL 0.5/2.5MG 3 ML NEBU. NEB ONE (09:45)
--- NOTE | 2020-07-01 10:28 | RAD ---
EXAM: PA and Lateral Views of the Chest DATE: 07/01/2020 9:40 AM INDICATION: SHORTNESS OF AIR COMPARISON: 06/30/2020 FINDINGS: The heart is not enlarged. Mediastinal and hilar contours are normal. Patchy opacities infrahilar right lung and right lung base may represent atelectasis or developing consolidation. The interstitial prominence from prior examination has improved. No pleural effusion or pneumothorax. IMPRESSION: Interstitial prominence from prior examination 06/30/2020 has improved. However underlying patchy opacities infrahilar right lung and right lung base are still seen, possibly atelectasis or consolidation. Electronically signed by: Doc Gama MD (07/01/2020 10:25 AM) [id number]
[2020-07-01 11:00] VITALS: BP 109/68
[2020-07-01] MEDS ORDERED: traMADol 50 MG TABLET PO ONE (11:00)
[2020-07-01] MEDS ORDERED: PRED20TA PO (11:22)
[2020-07-01] MEDS ORDERED: TRAM50TA PO (11:22)
--- NOTE | 2020-07-01 11:22 | PHYS DOC ---
Past Medical History Past Medical History: COPD, Depression, GERD, High Cholesterol, Pneumonia, Sciatica, Other Additional Past Medical Histor: chronic pain, CELLULITIS Past Surgical History: Other Additional Past Surgical Histo: back, left arm Smoking Status: Unknown if ever smoked Alcohol Use: None Drug Use: None General Adult EDM: Chief Complaint: ASTHMA HPI: HPI: Patient is a 54 year old female who presented to the ER today for evaluation of shortness of air because of her asthma. She said she used her inhaler at home but it was not working. Patient also complained of lower back pain. She said she fell four days ago and hurt her back. Patient was evaluated here for the same problem yesterday. xray of her lumbar spine did not show any acute problem. Her lab works were normal then. Patient was discharged home in stable condition. Patient wanted tramadol for her pain. She denied any fever, no cough, no chest pain. Review of Systems: Review of Systems: Constitutional: Denies fever or chills. [] Eyes: Denies change in visual acuity. [] HENT: Denies nasal congestion or sore throat. [] Respiratory: Denies cough, positive for shortness of breath. [] Cardiovascular: Denies chest pain or edema. [] GI: Denies abdominal pain, nausea, vomiting, bloody stools or diarrhea. [] : Denies dysuria. [] Musculoskeletal: Positive for lower back pain, no joint pain. [] Integument: Denies rash. [] Neurologic: Denies headache, focal weakness or sensory changes. [] Endocrine: Denies polyuria or polydipsia. [] Lymphatic: Denies swollen glands. [] Psychiatric: Denies depression or anxiety. [] Heart Score: Risk Factors: Risk Factors: DM, Current or recent (<one month) smoker, HTN, HLP, family history of CAD, obesity. Risk Scores: Score 0 - 3: 2.5% MACE over next 6 weeks - Discharge Home Score 4 - 6: 20.3% MACE over next 6 weeks - Admit for Clinical Observation Score 7 - 10: 72.7% MACE over next 6 weeks - Early Invasive Strategies Current Medications: Current Medications Medications (Trade) Dose Ordered Sig/Jayy Start Time Stop Time Status Last Admin Dose Admin Albuterol/ Ipratropium (Duoneb) 3 ml 1X ONCE 07/01/20 09:45 07/01/20 09:46 DC 07/01/20 10:17 3 ML Tramadol HCl (Ultram) 50 mg 1X ONCE 07/01/20 11:00 07/01/20 11:01 DC 07/01/20 11:05 50 MG Allergies: Allergies: Allergies Coded Allergies Type Severity Reaction Last Updated Verified ibuprofen Allergy Intermediate rash, TOLERATES KETOROLAC 04/08/18 Yes ketorolac Allergy Intermediate Unknown 06/30/20 Yes naproxen Allergy Intermediate rash, TOLERATES KETOROLAC 04/08/18 Yes diclofenac Adverse Reaction Intermediate n/v 05/12/19 Yes Physical Exam: PE: Constitutional: Well developed, well nourished, no acute distress, non-toxic appearance. [] HENT: Normocephalic, atraumatic, bilateral external ears normal, oropharynx moist, no oral exudates, nose normal. [] Eyes: PERRLA, EOMI, conjunctiva normal, no discharge. [] Neck: Normal range of motion, no tenderness, supple, no stridor. [] Cardiovascular:Heart rate regular rhythm, no murmur [] Lungs & Thorax: , mild expiratory wheezing, no respiratory distress. Abdomen: Bowel sounds normal, soft, no tenderness, no masses, no pulsatile masses. [] Skin: Warm, dry, no erythema, no rash. [] Back: No tenderness, no CVA tenderness. [] Extremities: No tenderness, no cyanosis, no clubbing, ROM intact, no edema. [] Neurologic: Alert and oriented X 3, normal motor function, normal sensory function, no focal deficits noted. [] Psychologic: Affect normal, judgement normal, mood normal. [] Current Patient Data: Vital Signs: Vital Signs Date Time Temp Pulse Resp B/P (MAP) Pulse Ox O2 Delivery O2 Flow Rate FiO2 07/01/20 11:05 20 96 Room Air 07/01/20 09:55 66 158/83 (108) 07/01/20 09:00 98.2 98.2 EKG: EKG: [] Radiology/Procedures: Radiology/Procedures: [facility] [address] [place] [address] IMAGING REPORT Signed PATIENT: AMADOR GLASERCOUNT: [id number] : 1965 LOCATION: ER AGE: 54 SEX: F EXAM STATUS: REG ER ORD. PHYSICIAN: SAILAJA MOLINA DO REASON: SHORTNESS OF AIR. PROCEDURE: CHEST PA & LATERAL EXAM: PA and Lateral Views of the Chest DATE: 07/01/2020 9:40 AM INDICATION: SHORTNESS OF AIR COMPARISON: 06/30/2020 FINDINGS: The heart is not enlarged. Mediastinal and hilar contours are normal. Patchy opacities infrahilar right lung and right lung base may represent atelectasis or developing consolidation. The interstitial prominence from prior examination has improved. No pleural effusion or pneumothorax. IMPRESSION: Interstitial prominence from prior examination 06/30/2020 has improved. However underlying patchy opacities infrahilar right lung and right lung base are still seen, possibly atelectasis or consolidation. Electronically signed by: Doc Gama MD (07/01/2020 10:25 AM) [id number] DICTATED and SIGNED BY: DOC GAMA MD DATE: 07/01/20 1025 [] Course & Med Decision Making: Course & Med Decision Making Pertinent Labs and Imaging studies reviewed. (See chart for details) Patient was in no acute distress, normal saturation , normal lung sound after treatment. no evidence of contusion on lower back, no bony step off. No further work up needed. Dragon Disclaimer: Dragon Disclaimer: This electronic medical record was generated, in whole or in part, using a voice recognition dictation system. Departure Departure Impression: Primary Impression: Asthma Additional Impression: Chronic back pain Disposition: 01 HOME, SELF-CARE Condition: STABLE Referrals: NO PCP (PCP) PLEASE FOLLOW UP WITH YOUR DOCTOR THIS WEEK Patient Instructions: Asthma Attacks, Prevention, Back Pain, Adult Additional Instructions: Thank you for visiting our Emergency Department. We appreciate you trusting us with your care. If any additional problems come up don't hesitate to return to visit us. Please follow up with your primary care provider so they can plan additional care if needed and know about the problem that you had. If symptoms worsen come back to the Emergency Department. Any concerning symptoms that start such as chest pain, shortness of air, weakness or numbness on one side of the body, running high fevers or any other concerning symptoms return to the ER. Scripts Prednisone (PREDNISONE) 20 Mg Tablet 20 MG PO DAILY, #7 TAB Prov: SAILAJA MOLINA DO 07/01/20 Tramadol Hcl (TRAMADOL HCL) 50 Mg Tablet 50 MG PO Q6HRS PRN for PAIN, #12 TAB Prov: SAILAJA MOLINA DO 07/01/20 Justicifation of Admission Dx: Justifications for Admission: Justification of Admission Dx: N/A SAILAJA MOLINA DO Jul 01, 2020 11:22
== END 2020-07-01 11:25 | disposition home or self-care (01) ==
LOC: ER 08:40
DX: J44.9 Chronic obstructive pulmonary disease, unspecified (principal); M54.5 Low back pain; G89.29 Other chronic pain; K21.9 Gastro-esophageal reflux disease without esophagitis; E78.00 Pure hypercholesterolemia, unspecified; Z88.6 Allergy status to analgesic agent; Z88.5 Allergy status to narcotic agent; Z88.8 Allergy status to other drugs, medicaments and biological substances
CPT/HCPCS: 71046; 94640; 99285

== ENCOUNTER 2020-07-09 19:33 | Emergency (ER) | payer SELFPAY ==
[~2020-07-09] VITALS: Ht 165.1 cm; Wt 77.0 kg
[2020-07-09 20:39] VITALS: BP 137/63
[2020-07-09] MEDS ORDERED: TRAM-48 PO (20:43)
[2020-07-09] MEDS ORDERED: traMADol 50 MG TABLET PO ONE (21:00)
--- NOTE | 2020-07-09 21:05 | PHYS DOC ---
Past Medical History Past Medical History: COPD, Depression, GERD, High Cholesterol, Pneumonia, Sciatica, Other Additional Past Medical Histor: chronic pain, CELLULITIS Past Surgical History: Other Additional Past Surgical Histo: back, left arm Smoking Status: Never Smoker Alcohol Use: None Drug Use: None General Adult EDM: Chief Complaint: SHORTNESS OF BREATH HPI: HPI: Patient is a 54 year old female presents with the triage complaint of shortness of breath. At the time of my examination patient complains of lower back pain. Patient states she has chronic lower back pain and she is normally treated with morphine. Patient states she does not have any home medications for her pain. She denies any new injuries. There is no saddle anesthesia or loss of bowel or bladder. Patient is requesting a morphine shot. EKG performed shortly after arrival shows a sinus rhythm heart rate of [address] elevation no ST depression patient's vital signs stable. Just put it on her right noninjected Review of Systems: Review of Systems: Constitutional: Denies fever or chills. [] Eyes: Denies change in visual acuity. [] HENT: Denies nasal congestion or sore throat. [] Respiratory: Denies cough or shortness of breath. [] Cardiovascular: Denies chest pain or edema. [] GI: Denies abdominal pain, nausea, vomiting, bloody stools or diarrhea. [] : Denies dysuria. [] Musculoskeletal: Positive back pain Integument: Denies rash. [] Neurologic: Denies headache, focal weakness or sensory changes. [] Endocrine: Denies polyuria or polydipsia. [] Lymphatic: Denies swollen glands. [] Psychiatric: Denies depression or anxiety. [] Heart Score: Risk Factors: Risk Factors: DM, Current or recent (<one month) smoker, HTN, HLP, family history of CAD, obesity. Risk Scores: Score 0 - 3: 2.5% MACE over next 6 weeks - Discharge Home Score 4 - 6: 20.3% MACE over next 6 weeks - Admit for Clinical Observation Score 7 - 10: 72.7% MACE over next 6 weeks - Early Invasive Strategies Current Medications: Current Medications Medications (Trade) Dose Ordered Sig/Jayy Start Time Stop Time Status Last Admin Dose Admin Tramadol HCl (Ultram) 50 mg 1X ONCE 07/09/20 21:00 07/09/20 20:51 DC 07/09/20 20:40 50 MG Allergies: Allergies: Allergies Coded Allergies Type Severity Reaction Last Updated Verified ibuprofen Allergy Intermediate rash, TOLERATES KETOROLAC 04/08/18 Yes ketorolac Allergy Intermediate Unknown 06/30/20 Yes naproxen Allergy Intermediate rash, TOLERATES KETOROLAC 04/08/18 Yes diclofenac Adverse Reaction Intermediate n/v 05/12/19 Yes Physical Exam: PE: Constitutional: Well developed, well nourished, no acute distress, non-toxic appearance. [] HENT: Normocephalic, atraumatic, bilateral external ears normal, oropharynx moist, no oral exudates, nose normal. [] Eyes: PERRLA, EOMI, conjunctiva normal, no discharge. [] Neck: Normal range of motion, no tenderness, supple, no stridor. [] Cardiovascular:Heart rate regular rhythm, no murmur [] Lungs & Thorax: Bilateral breath sounds clear to auscultation [] Abdomen: Bowel sounds normal, soft, no tenderness, no masses, no pulsatile masses. [] Skin: Warm, dry, no erythema, no rash. [] Back: Paraspinal tenderness lumbar L4-L5 region. No midline step-off or deformity. Extremities: No tenderness, no cyanosis, no clubbing, ROM intact, no edema. [] Neurologic: Alert and oriented X 3, normal motor function, normal sensory function, no focal deficits noted. [No saddle anesthesia no loss of bowel or bladder] Psychologic: Affect normal, judgement normal, mood normal. [] Current Patient Data: Vital Signs: Vital Signs Date Time Temp Pulse Resp B/P (MAP) Pulse Ox O2 Delivery O2 Flow Rate FiO2 07/09/20 20:39 59 137/63 (87) 96 Room Air 07/09/20 19:45 98.7 16 98.7 EKG: EKG: ekg time 1947 [rate 64 sinsus rhythm no stemi] Radiology/Procedures: Radiology/Procedures: [] Course & Med Decision Making: Course & Med Decision Making Pertinent Labs and Imaging studies reviewed. (See chart for details) [] Patient evaluated for chief complaint. Triage complaint shortness of breath. Complaint when I examined her was back pain. Patient was requesting morphine for pain I treated patient's pain with Ultram. A EKG was performed it was normal. I ordered a chest x-ray for the patient but she declined it. Patient was requesting Ultram and clonazepam prescriptions. Patient was treated with a dose of Ultram. Patient was discharged home with prescription Ultram. Zeus Disclaimer: Zeus Disclaimer: This electronic medical record was generated, in whole or in part, using a voice recognition dictation system. Departure Departure Impression: Primary Impression: Back pain Disposition: HOME, SELF-CARE Condition: STABLE Referrals: NO PCP (PCP) Patient Instructions: Back Pain, Adult, Chronic Pain Scripts Tramadol Hcl (ULTRAM) 50 Mg Tablet 1 TAB PO PRN Q6HRS PRN for pain MDD 4 Tablet(s) for 7 Days, #20 TAB 0 Refills Prov: KIESHA WILKINSON I DO 07/09/20 Justicifation of Admission Dx: Justifications for Admission: Justification of Admission Dx: N/A KIESHA WILKINSON I DO Jul 09, 2020 21:05
--- NOTE | 2020-07-10 01:33 | EKG ---
[facility] [address] [place] [address] Test Date: 2020-07-09 Test Time: 19:48:45 Pat Name: JACKY GLASER Department: Room: Gender: F [employer]: : 1965 Requested By: KIESHA WILKINSON Order Number: [id number] Reading MD: Dank Patel Measurements Intervals [place] Rate: 64 P: 46 WA: 160 QRS: 35 QRSD: 86 T: 31 QT: 392 QTc: 408 Interpretive Statements SINUS RHYTHM Electronically Signed On 07-10-2020 12:24:17 CDT by Dank Patel
== END 2020-07-09 20:50 | disposition home or self-care (01) ==
LOC: ER 19:33
DX: M54.5 Low back pain (principal); R06.02 Shortness of breath; J44.9 Chronic obstructive pulmonary disease, unspecified; K21.9 Gastro-esophageal reflux disease without esophagitis; E78.00 Pure hypercholesterolemia, unspecified; G89.29 Other chronic pain; Z98.890 Other specified postprocedural states; Z88.8 Allergy status to other drugs, medicaments and biological substances; Z88.6 Allergy status to analgesic agent
CPT/HCPCS: 93005; 99283

== ENCOUNTER 2020-07-26 16:12 | Emergency (ER) | payer SELFPAY ==
[~2020-07-26] VITALS: Ht 165.1 cm; Wt 77.2 kg
[2020-07-26 16:40] VITALS: BP 138/96
--- NOTE | 2020-07-26 18:22 | RAD ---
EXAM: Bilateral lower extremity venous Doppler. HISTORY: Bilateral lower extremity pain/swelling. COMPARISON: None. FINDINGS: Grayscale and Doppler analysis of the both lower extremity deep venous systems was performed with graded compression and augmentation. The common femoral, greater saphenous, superficial femoral, popliteal and calf veins were assessed. There is no evidence of deep venous thrombosis. IMPRESSION: 1. No evidence of deep venous thrombosis. Electronically signed by: Tabitha Ramsey MD (07/26/2020 6:19 PM) [facility]
[2020-07-26] MEDS ORDERED: METHOCARBAMOL 500 MG TABLET PO STA (18:32)
[2020-07-26] MEDS ORDERED: traMADol 50 MG TABLET PO ONE (18:45)
[2020-07-26] MEDS ORDERED: TRAM50TA PO (19:01)
[2020-07-26] MEDS ORDERED: SULF1TAB23 PO (19:01)
--- NOTE | 2020-07-26 19:02 | PHYS DOC ---
Past Medical History Past Medical History: COPD, Depression, GERD, High Cholesterol, Pneumonia, Sciatica, Other Additional Past Medical Histor: chronic pain, CELLULITIS Past Surgical History: Other Additional Past Surgical Histo: back, left arm Smoking Status: Never Smoker Alcohol Use: None Drug Use: None General Adult EDM: Chief Complaint: LOWER EXTREMITY SWELLING HPI: HPI: Patient is a 54 year old female who presents to the ED today complaining of bilateral lower extremity swelling and slight redness that began yesterday. Patient denies any injuries. Reports history of cellulitis. Patient also complaining of chronic low back pain rated at 10 out of 10 described as throbbing and intermittent. Denies any known injury. Denies any loss of bowel/bladder function. Reports pain radiating to bilateral lower extremities which is chronic. Review of Systems: Review of Systems: Constitutional: Denies fever or chills. [] Eyes: Denies change in visual acuity. [] HENT: Denies nasal congestion or sore throat. [] Respiratory: Denies cough or shortness of breath. [] Cardiovascular: Denies chest pain or edema. [] GI: Denies abdominal pain, nausea, vomiting, bloody stools or diarrhea. [] : Denies dysuria. [] Musculoskeletal: Reports bilateral lower extremity swelling, redness, and chronic low back pain with sciatica Integument: Denies rash. [] Neurologic: Denies headache, focal weakness or sensory changes. [] Psychiatric: Denies depression or anxiety. [] Heart Score: Risk Factors: Risk Factors: DM, Current or recent (<one month) smoker, HTN, HLP, family history of CAD, obesity. Risk Scores: Score 0 - 3: 2.5% MACE over next 6 weeks - Discharge Home Score 4 - 6: 20.3% MACE over next 6 weeks - Admit for Clinical Observation Score 7 - 10: 72.7% MACE over next 6 weeks - Early Invasive Strategies Current Medications: Current Medications Medications (Trade) Dose Ordered Sig/Jayy Start Time Stop Time Status Last Admin Dose Admin Methocarbamol (Robaxin) 500 mg 1X STAT 07/26/20 18:32 07/26/20 18:34 DC 07/26/20 18:46 500 MG Tramadol HCl (Ultram) 50 mg 1X ONCE 07/26/20 18:45 07/26/20 18:46 DC 07/26/20 18:47 50 MG Allergies: Allergies: Allergies Coded Allergies Type Severity Reaction Last Updated Verified ibuprofen Allergy Intermediate rash, TOLERATES KETOROLAC 04/08/18 Yes ketorolac Allergy Intermediate Unknown 06/30/20 Yes naproxen Allergy Intermediate rash, TOLERATES KETOROLAC 04/08/18 Yes diclofenac Adverse Reaction Intermediate n/v 05/12/19 Yes Physical Exam: PE: Constitutional: Well developed, well nourished, no acute distress, non-toxic appearance. [] HENT: Normocephalic, atraumatic, bilateral external ears normal, oropharynx moist, no oral exudates, nose normal. [] Eyes: PERRLA, EOMI, conjunctiva normal, no discharge. [] Neck: Normal range of motion, no tenderness, supple, no stridor. [] Cardiovascular:Heart rate regular rhythm, no murmur [] Lungs & Thorax: Bilateral breath sounds clear to auscultation [] Abdomen: Bowel sounds normal, soft, no tenderness, no masses, no pulsatile masses. [] Skin: See extremity Back: No tenderness, no CVA tenderness. [] Extremities: No tenderness, no cyanosis, no clubbing, ROM intact, bilateral lower extremities with +1 edema, distress redness over the [place] suspicious of cellulitis that is beginning. Negative Homans' sign bilaterally. Neurologic: Alert and oriented X 3, normal motor function, normal sensory function, no focal deficits noted. [] Psychologic: Affect normal, judgement normal, mood normal. [] Current Patient Data: Vital Signs: Vital Signs Date Time Temp Pulse Resp B/P (MAP) Pulse Ox O2 Delivery O2 Flow Rate FiO2 07/26/20 18:47 22 07/26/20 16:40 98.7 95 138/96 (110) 100 Room Air 98.7 EKG: EKG: [] Radiology/Procedures: Radiology/Procedures: []PROCEDURE: VENOUS LOWER EXT BILATERAL EXAM: Bilateral lower extremity venous Doppler. HISTORY: Bilateral lower extremity pain/swelling. COMPARISON: None. FINDINGS: Grayscale and Doppler analysis of the both lower extremity deep venous systems was performed with graded compression and augmentation. The common femoral, greater saphenous, superficial femoral, popliteal and calf veins were assessed. There is no evidence of deep venous thrombosis. IMPRESSION: 1. No evidence of deep venous thrombosis. Electronically signed by: Tabitha Ramsey MD (07/26/2020 6:19 PM) [facility] DICTATED and SIGNED BY: KIMBERLI RAMSEY MD DATE: 07/26/201818 Course & Med Decision Making: Course & Med Decision Making Pertinent Labs and Imaging studies reviewed. (See chart for details) This is a 54-year-old female patient presenting to the ED today complaining of bilateral lower extremity swelling with noted slight redness suspicious of early cellulitis. Patient has history of the same. Also complaining of chronic back pain with no known injury. Venous Doppler of bilateral lower extremities are negative. Discharge on Bactrim. Follow-up with primary care doctor in 1 week Dragon Disclaimer: Dragon Disclaimer: This electronic medical record was generated, in whole or in part, using a voice recognition dictation system. Departure Departure Impression: Primary Impression: Cellulitis of both lower extremities Additional Impression: Chronic back pain Qualified Codes: M54.42 - Lumbago with sciatica, left side; M54.41 - Lumbago with sciatica, right side; G89.29 - Other chronic pain Disposition: 01 DC HOME SELF CARE/HOMELESS Condition: STABLE Referrals: NO PCP (PCP) Follow-up with your own doctor in 1 to 2 weeks Patient Instructions: Back Pain, Adult, Cellulitis, [id number] Additional Instructions: You were evaluated in the emergency room for low back pain which is chronic, swelling and redness to your lower bilateral extremities suspicious of cellulitis. Take the prescribed antibiotics until completed. Please follow-up with your own doctor in 1 to 2 weeks. Scripts Tramadol Hcl (TRAMADOL HCL) 50 Mg Tablet 50 MG PO Q6HRS PRN for PAIN, #21 TAB Prov: MEMO NELSON APRN 07/26/20 Sulfamethoxazole/Trimethoprim (BACTRIM 400-80 MG TABLET) 1 Each Tablet 1 TAB PO BID for 10 Days, #20 TAB 0 Refills Prov: MEMO NELSON APRN 07/26/20 MEMO NELSON APRN Jul 26, 2020 19:02
== END 2020-07-26 19:08 | disposition home or self-care (01) ==
LOC: ER 16:12
DX: L03.116 Cellulitis of left lower limb (principal); L03.115 Cellulitis of right lower limb; G89.29 Other chronic pain; M54.41 Lumbago with sciatica, right side; M54.42 Lumbago with sciatica, left side; R60.0 Localized edema; J44.9 Chronic obstructive pulmonary disease, unspecified; F32.9 Major depressive disorder, single episode, unspecified; K21.9 Gastro-esophageal reflux disease without esophagitis; E78.00 Pure hypercholesterolemia, unspecified; Z98.890 Other specified postprocedural states; Z88.8 Allergy status to other drugs, medicaments and biological substances; Z88.6 Allergy status to analgesic agent
CPT/HCPCS: 93970; 99284

== ENCOUNTER 2020-08-08 16:20 | Emergency (ER) | payer SELFPAY ==
[~2020-08-08] VITALS: Ht 165.1 cm; Wt 100.0 kg
[~2020-08-08 16:20] MED LIST changes: +SULF1TAB23 PO
[2020-08-08 16:45] LABS: BILIRUBIN,URINE NEGATIVE (NEG); CLARITY,URINE CLEAR; COLOR,URINE YELLOW; NITRITE,URINE NEGATIVE (NEG); PROTEIN,URINE NEGATIVE (NEG-TRACE); UROBILINOGEN,URINE 0.2 mg/dL (0.2 mg/dL)
[2020-08-08] MEDS ORDERED: IV NORMAL SALINE 1000ML BAG 1,000 ML IV ONE (16:45)
[2020-08-08] MEDS ORDERED: ONDANSETRON PF 4 MG/2 ML VIAL. IVP ONE (16:45)
[2020-08-08 16:55] LABS: BASO # 0.1 x10^3/uL (0.0-0.2); BASO % 1 % (0-3); EOS # 0.4 x10^3/uL (0.0-0.7); EOS % 6 % (0-3); HEMATOCRIT 31.7 % (36.0-47.0); HEMOGLOBIN 10.7 g/dL (12.0-15.5); LYMPH % 25 % (24-48); MEAN CORPUSCULAR HEMOGLOBIN 30 pg (25-35); MEAN CORPUSCULAR HGB CONC 34 g/dL (31-37); MEAN CORPUSCULAR VOLUME 90 fL (79-100); MONO # 0.7 x10^3/uL (0.0-1.1); MONO % 9 % (0-9); NEUT # 4.8 x10^3/uL (1.8-7.7); NEUT % 60 % (31-73); PLATELET COUNT 403 x10^3/uL (140-400); RED BLOOD COUNT 3.53 x10^6/uL (3.50-5.40); RED CELL DISTRIBUTION WIDTH 15.1 % (11.5-14.5)
--- NOTE | 2020-08-08 16:55 | PHYS DOC ---
Past Medical History Past Medical History: COPD, Depression, GERD, High Cholesterol, Pneumonia, Sciatica, Other Additional Past Medical Histor: chronic pain, CELLULITIS Past Surgical History: Other Additional Past Surgical Histo: back, left arm Smoking Status: Never Smoker Alcohol Use: None Drug Use: None General Adult EDM: Chief Complaint: NAUSEA/VOMITING/DIARRHA HPI: HPI: Patient is a 54 year old female presents with nausea vomiting that began today. Patient has abdominal pain that radiates up to her chest as well. Patient denies any shortness of breath. Patient [facility] 4 days [facility]. Patient has not had a fever. Pain is moderate in intensity and worse with palpation and movement. Pain radiates to the chest and back Review of Systems: Review of Systems: Constitutional: Denies fever or chills. [] Eyes: Denies change in visual acuity. [] HENT: Denies nasal congestion or sore throat. [] Respiratory: Denies cough or shortness of breath. [] Cardiovascular: Complains of chest pain that radiates from abdomen GI: Complains abdominal pain with nausea vomiting no diarrhea : Denies dysuria. [] Musculoskeletal: Complains of back pain but no joint pain Integument: Denies rash. [] Neurologic: Denies headache, focal weakness or sensory changes. [] Endocrine: Denies polyuria or polydipsia. [] Lymphatic: Denies swollen glands. [] Psychiatric: Denies depression or anxiety. [] Heart Score: HEART Score for Chest Pain: HEART Score for Chest Pain Response (Comments) Value History Slighlty/Non-Suspicious 0 ECG Normal 0 Age >45 - < 65 1 Risk Factors 1 or 2 Risk Factors 1 Troponin < Normal Limit 0 Total 2 Risk Factors: Risk Factors: DM, Current or recent (<one month) smoker, HTN, HLP, family history of CAD, obesity. Risk Scores: Score 0 - 3: 2.5% MACE over next 6 weeks - Discharge Home Score 4 - 6: 20.3% MACE over next 6 weeks - Admit for Clinical Observation Score 7 - 10: 72.7% MACE over next 6 weeks - Early Invasive Strategies Current Medications: Current Medications Ondansetron HCl (Zofran) 4 mg 1X ONCE IVP ; Start 08/08/20 at 16:45; Stop 08/08/20 at 16:46; Status DC Sodium Chloride 1,000 ml @ 1,000 mls/hr 1X ONCE IV ; Start 08/08/20 at 16:45; Stop 08/08/20 at 17:44 Active Scripts Active Tramadol Hcl 50 Mg Tablet 50 Mg PO Q6HRS PRN Bactrim 400-80 Mg Tablet (Sulfamethoxazole/Trimethoprim) 1 Each Tablet 1 Tab PO BID 10 Days Ultram (Tramadol Hcl) 50 Mg Tablet 1 Tab PO PRN Q6HRS PRN MDD 4 Tablet(s) 7 Days Prednisone 20 Mg Tablet 20 Mg PO DAILY Tramadol Hcl 50 Mg Tablet 50 Mg PO Q6HRS PRN Cyclobenzaprine Hcl 10 Mg Tablet 1 Tab PO TID Gabapentin (Gabapentin) 300 Mg Capsule 300 Mg PO TID Orphenadrine Citrate 100 Mg Tablet.er 1 Tab PO BID Acetaminophen-Cod #3 Tablet (Acetaminophen/Codeine Phosphate) 1 Each Tablet 1 Tab PO PRN Q6HRS PRN Compazine (Prochlorperazine Maleate) 10 Mg Tablet 10 Mg PO Q8HRS PRN Acetaminophen 500 Mg Tablet 1 Tab PO PRN Q6HRS PRN 15 Days Robaxin-750 (Methocarbamol) 750 Mg Tablet 1 Tab PO TID Diclofenac Sodium 50 Mg Tablet.dr 1 Tab PO BID Proair Hfa (Albuterol Sulfate) 8.5 Gm Hfa.aer.ad 1 Puff INH PRN Q6HRS PRN Ventolin Hfa Inhaler (Albuterol Sulfate) 18 Gm Hfa.aer.ad 2 Puff INH Q4HRS Tessalon Perle (Benzonatate) 100 Mg Capsule 1 Cap PO TID Tramadol Hcl 50 Mg Tablet 1 Tab PO PRN Q12HR PRN Reported Hydrocodone-Acetamin 5-325 mg (Hydrocodone/Acetaminophen) 1 Each Tablet 1 Each PO Q4HRS Gabapentin (Gabapentin) 300 Mg Capsule 300 Mg PO TID Aspirin 81 Mg Tab.chew 1 Tab PO DAILY Clonazepam 1 Mg Tablet 1 Mg PO DAILY Symbicort 160-4.5 Mcg Inhaler (Budesonide/Formoterol Fumarate) 10.2 Gm Hfa.aer.ad 2 Puff IH BID Simvastatin 10 Mg Tablet 1 Tab PO QHS Omeprazole 20 Mg Capsule.dr 1 Cap PO BID Cyclobenzaprine Hcl 10 Mg Tablet 1 Tab PO PRN TID PRN Cymbalta (Duloxetine Hcl) 30 Mg Capsule.dr 30 Mg PO BID Current Medications Medications (Trade) Dose Ordered Sig/Jayy Start Time Stop Time Status Last Admin Dose Admin Ondansetron HCl (Zofran) 4 mg 1X ONCE 08/08/20 16:45 08/08/20 16:46 DC Sodium Chloride 1,000 ml @ 1,000 mls/hr 1X ONCE 08/08/20 16:45 08/08/20 17:44 Allergies: Allergies: Allergies Coded Allergies Type Severity Reaction Last Updated Verified ibuprofen Allergy Intermediate rash, TOLERATES KETOROLAC 04/08/18 Yes ketorolac Allergy Intermediate Unknown 06/30/20 Yes naproxen Allergy Intermediate rash, TOLERATES KETOROLAC 04/08/18 Yes diclofenac Adverse Reaction Intermediate n/v 05/12/19 Yes Physical Exam: PE: Constitutional: Well developed, well nourished, no acute distress, non-toxic appearance. [] HENT: Normocephalic, atraumatic, bilateral external ears normal, no trismus nose normal. [] Eyes: PERRLA, EOMI, conjunctiva normal, no discharge. [] Neck: Normal range of motion, no tenderness, supple, no stridor. [] Cardiovascular:Heart rate regular rhythm, peripheral pulse intact cap refill is brisk Lungs & Thorax: Bilateral breath sounds clear, no respiratory distress Abdomen: lsoft, mild tenderness in epigastric area without guarding or rebound, no masses, no pulsatile masses. [] Skin: Warm, dry, no erythema, no rash. [] Back: No tenderness, no CVA tenderness. [] Extremities: No tenderness, no cyanosis, no clubbing, ROM intact, no edema. [] Neurologic: Alert and oriented X 3, normal motor function, normal sensory function, no focal deficits noted. [] Psychologic: Affect normal, judgement normal, mood normal. [] Current Patient Data: Labs: Laboratory Tests Test 08/08/20 16:26 08/08/20 16:40 Urine Collection Type Unknown Urine Color Yellow Urine Clarity Clear Urine pH 6.0 Urine Specific [place] 1.015 Urine Protein Negative mg/dL Urine Glucose (UA) Negative mg/dL Urine Ketones (Stick) Negative mg/dL Urine Blood Negative Urine Nitrite Negative Urine Bilirubin Negative Urine Urobilinogen Dipstick 0.2 mg/dL Urine Leukocyte Esterase Negative Urine RBC 0 /HPF Urine WBC 0 /HPF Urine Squamous Epithelial Cells Occ /LPF Urine Bacteria 0 /HPF White Blood Count 8.0 x10^3/uL Red Blood Count 3.53 x10^6/uL Hemoglobin 10.7 g/dL Hematocrit 31.7 % Mean Corpuscular Volume 90 fL Mean Corpuscular Hemoglobin 30 pg Mean Corpuscular Hemoglobin Concent 34 g/dL Red Cell Distribution Width 15.1 % Platelet Count 403 x10^3/uL Neutrophils (%) (Auto) 60 % Lymphocytes (%) (Auto) 25 % Monocytes (%) (Auto) 9 % Eosinophils (%) (Auto) 6 % Basophils (%) (Auto) 1 % Neutrophils # (Auto) 4.8 x10^3/uL Lymphocytes # (Auto) 2.0 x10^3/uL Monocytes # (Auto) 0.7 x10^3/uL Eosinophils # (Auto) 0.4 x10^3/uL Basophils # (Auto) 0.1 x10^3/uL Sodium Level 141 mmol/L Potassium Level 4.0 mmol/L Chloride Level 105 mmol/L Carbon Dioxide Level 26 mmol/L Anion Gap 10 Blood Urea Nitrogen 19 mg/dL Creatinine 0.8 mg/dL Estimated GFR (Cockcroft-Gault) 74.7 BUN/Creatinine Ratio 24 Glucose Level 90 mg/dL Calcium Level 8.5 mg/dL Total Bilirubin 0.1 mg/dL Aspartate Amino Transf (AST/SGOT) 9 U/L Alanine Aminotransferase (ALT/SGPT) 14 U/L Alkaline Phosphatase 79 U/L Troponin I Quantitative < 0.017 ng/mL Total Protein 6.8 g/dL Albumin 3.1 g/dL Albumin/Globulin Ratio 0.8 Lipase 135 U/L Current Medications Medications (Trade) Dose Ordered Sig/Jayy Route PRN Reason Start Time Stop Time Status Last Admin Dose Admin Ondansetron HCl (Zofran) 4 mg 1X ONCE IVP 08/08/20 16:45 08/08/20 16:46 DC 08/08/20 17:10 Sodium Chloride 1,000 ml @ 1,000 mls/hr 1X ONCE IV 08/08/20 16:45 08/08/20 17:44 08/08/20 17:10 Vital Signs: Vital Signs Date Time Temp Pulse Resp B/P (MAP) Pulse Ox O2 Delivery O2 Flow Rate FiO2 08/08/20 16:30 98.4 87 16 142/84 (103) 97 Room Air 98.4 EKG: EKG: [] EKG interpreted by me normal sinus rhythm with rate of 86, right axis deviation, normal intervals, normal ST segments Radiology/Procedures: Radiology/Procedures: [] Course & Med Decision Making: Course & Med Decision Making Pertinent Labs and Imaging studies reviewed. (See chart for details) [] 54-year-old female presents with abdominal pain. Abdominal exam is soft and nontender. Patient has a nonsurgical abdomen. Patient had pain that radiated chest therefore EKG was done which is reassuring. Troponin is negative as well. Patient is well-known to the department and initially asked for morphine and then specifically for Ultram by name. Patient was informed that she would not be getting any pain medicine at this time and needs to follow-up with her primary doctor as these issues seem to be chronic in nature. Patient remained stable in the ER. I clinically doubt she has AAA or any significant intra-ab dominal pathology. Abdomen is very soft Zeus Disclaimer: Zeus Disclaimer: This electronic medical record was generated, in whole or in part, using a voice recognition dictation system. Departure Departure Impression: Primary Impression: Nausea and vomiting Additional Impression: Upper abdominal pain Disposition: 01 DC HOME SELF CARE/HOMELESS Condition: STABLE Referrals: NO PCP (PCP) [facility] [address] [place] [address] [facility] [address] [place] [address] [facility] [address] Patient Instructions: Nausea and Vomiting Additional Instructions: EMERGENCY DEPARTMENT GENERAL DISCHARGE INSTRUCTIONS THANK YOU for coming to [facility] Emergency Department (ED) travis maloney and trusting us with your care. We trust that you had a positive experience in our Emergency Department. If you wish to speak to the department Management you can contact the management department chair at . YOUR FOLLOW UP INSTRUCTIONS ARE FOLLOWS: Do you have a private doctor? If you do not have a private doctor, please ask for a resource list of physicians or clinics that may be able to assist you with follow up care. The Emergency Physician has interpreted your x-rays. The X-ray specialist will also review them. If there is a change in the findings you will be notified in 48 hours when at all possible. A lab test or lab culture may have been done, your results will be reviewed and you will be notified if you need a change in treatment. ADDITIONAL INSTRUCTIONS AND INFORMATION Your care today has been supervised by a physician who is specially trained in emergency care. Many problems require more than one evaluation for a complete diagnosis and treatment. We recommend that you schedule your follow up appointment as recommended to ensure complete treatment of your illness or injury. If you are unable to obtain follow up care and continue to have a problem, or if your condition worsens we recommend that you return to the ED. We are not able to safely determine your condition over the phone nor are we able to give sound medical advice over the phone. For these safety reasons, if you call for medical advice we will ask you to come to the ED for further evaluation If you have any questions regarding these discharge instructions please call the ED at . SAFETY INFORMATION In the interest of safety, wellness, and injury prevention; we encourage you to wear your seatbelt, if you smoke; quit smoking, and we encourage your family to use protective helmet for bicycling and other sporting events that present an increased risk for head injury. IF YOUR SYMPTOMS WORSEN OR NEW SYMPTOMS DEVELOP, OR YOU HAVE CONCERNS ABOUT YOUR CONDITION; OR IF YOUR CONDITION WORSENS WHILE YOU ARE WAITING FOR YOUR FOLLOW UP APPOINTMENT; EITHER CONTACT YOUR PRIMARY CARE DOCTOR, THE PHYSICIAN WHOSE NAME AND NUMBER YOU WERE GIVEN, OR RETURN TO THE ED IMMEDIATELY. Scripts Ondansetron Hcl (ZOFRAN) 4 Mg Tablet 1 TAB PO PRN Q6-8HRS for NAUSEA, #12 TAB Prov: BRANNON BENEDICT MD 08/08/20 BRANNON BENEDICT MD Aug 08, 2020 16:55
[2020-08-08 17:00] LABS: BACTERIA,URINE 0 /HPF (0-FEW); RBC,URINE 0 /HPF (0-2); WBC,URINE 0 /HPF (0-4)
[2020-08-08 17:08] LABS: CALCIUM 8.5 mg/dL (8.5-10.1); CREATININE 0.8 mg/dL (0.6-1.0); GFR 74.7
[2020-08-08 17:14] LABS: ALBUMIN 3.1 g/dL (3.4-5.0); ALBUMIN/GLOBULIN RATIO 0.8 (1.0-1.7); TOTAL BILIRUBIN 0.1 mg/dL (0.2-1.0); TOTAL PROTEIN 6.8 g/dL (6.4-8.2)
[2020-08-08 17:30] VITALS: BP 100/57
[2020-08-08] MEDS ORDERED: ONDA4TAB7 PO (17:34)
--- NOTE | 2020-08-09 12:38 | EKG ---
[facility] [address] [place] [address] Test Date: 2020-08-08 Test Time: 16:53:13 Pat Name: JACKY GLASER Department: Room: Gender: F Perfumer: : 1965 Requested By: BRANNON BENEDICT Order Number: [id number] Reading MD: Measurements Intervals [place] Rate: 86 P: 165 MD: 158 QRS: 126 QRSD: 78 T: 140 QT: 348 QTc: 419 Interpretive Statements SUPRAVENTRICULAR RHYTHM ABNORMAL RIGHT AXIS DEVIATION QRS(T) CONTOUR ABNORMALITY CONSISTENT WITH HIGH LATERAL INFARCT AGE UNDETERMINED ABNORMAL ECG RI6.02 No previous ECG available for comparison
== END 2020-08-08 17:45 | disposition home or self-care (01) ==
LOC: ER 16:20
DX: R11.2 Nausea with vomiting, unspecified (principal); R10.10 Upper abdominal pain, unspecified; M54.9 Dorsalgia, unspecified; J44.9 Chronic obstructive pulmonary disease, unspecified; K21.9 Gastro-esophageal reflux disease without esophagitis; F32.9 Major depressive disorder, single episode, unspecified; E78.00 Pure hypercholesterolemia, unspecified; G89.29 Other chronic pain; Z98.890 Other specified postprocedural states; Z88.8 Allergy status to other drugs, medicaments and biological substances; Z88.6 Allergy status to analgesic agent
CPT/HCPCS: 36415; 80053; 81001; 83690; 84484; 85025; 93005; 96361; 96374; 99284; J2405; J7030

== ENCOUNTER 2021-02-06 12:56 | Emergency (ER) | payer MEDICAID ==
[~2021-02-06] VITALS: Ht 165.1 cm; Wt 90.9 kg
[~2021-02-06 12:56] MED LIST changes: -ACYC800T PO; +ACYC800T88 PO; -CLIN150C14 PO; +CLIN150C15 PO; +ONDA4TAB7 PO
[2021-02-06] MEDS ORDERED: MORPHINE SULFATE 10 MG/ML VIAL. IV ONE (13:30)
--- NOTE | 2021-02-06 13:57 | RAD ---
EXAM: Chest, single view. HISTORY: Chest pain. COMPARISON: 07/01/2020 FINDINGS: A frontal view of the chest is obtained. There is no infiltrate, pleural effusion or pneumo thorax. The heart is normal in size. IMPRESSION: No acute pulmonary finding. Electronically signed by: Dior Robins MD (02/06/2021 1:54 PM) [id number]
[2021-02-06 13:58] LABS: BASO # 0.1 x10^3/uL (0.0-0.2); BASO % 1 % (0-3); EOS # 0.2 x10^3/uL (0.0-0.7); EOS % 3 % (0-3); HEMATOCRIT 35.6 % (36.0-47.0); LYMPH # 1.6 x10^3/uL (1.0-4.8); LYMPH % 17 % (24-48); MEAN CORPUSCULAR HEMOGLOBIN 30 pg (25-35); MEAN CORPUSCULAR HGB CONC 34 g/dL (31-37); MEAN CORPUSCULAR VOLUME 89 fL (79-100); MONO # 0.6 x10^3/uL (0.0-1.1); MONO % 7 % (0-9); NEUT # 6.9 x10^3/uL (1.8-7.7); NEUT % 73 % (31-73); PLATELET COUNT 363 x10^3/uL (140-400); RED BLOOD COUNT 3.99 x10^6/uL (3.50-5.40); RED CELL DISTRIBUTION WIDTH 16.6 % (11.5-14.5); WHITE BLOOD COUNT 9.4 x10^3/uL (4.0-11.0)
[2021-02-06 14:30] LABS: BARBITURATES NEG (NEG); BENZODIAZEPINES NEG (NEG); CANNABINOIDS NEG (NEG); COCAINE NEG (NEG); METHADONE NEG (NEG); OPIATES NEG (NEG); PHENCYCLIDINE NEG (NEG)
[2021-02-06 14:39] LABS: AMPHETAMINE/METHAMPHETAMINE NEG (NEG)
[2021-02-06 15:17] LABS: CALCIUM 8.5 mg/dL (8.5-10.1); CREATININE 0.7 mg/dL (0.6-1.0); GFR 86.9; POTASSIUM 4.5 mmol/L (3.5-5.1)
[2021-02-06 15:22] LABS: ALBUMIN 3.6 g/dL (3.4-5.0); ALBUMIN/GLOBULIN RATIO 1.1 (1.0-1.7); TOTAL BILIRUBIN 0.2 mg/dL (0.2-1.0); TOTAL PROTEIN 6.9 g/dL (6.4-8.2)
[2021-02-06 15:28] LABS: PREG TEST PT QUAL NEGATIVE (NEG)
--- NOTE | 2021-02-06 17:43 | PHYS DOC ---
Past Medical History Past Medical History: COPD, Depression, GERD, High Cholesterol, Pneumonia, Sciatica, Other Additional Past Medical Histor: chronic pain, CELLULITIS Past Surgical History: Other Additional Past Surgical Histo: back, left arm Smoking Status: Never Smoker Alcohol Use: None Drug Use: None General Adult EDM: Chief Complaint: CHEST PAIN HPI: HPI: Patient is a 55 year old female with a history of depression, high cholesterol, COPD former smoker, chronic back pain with sciatica, who presents to the ED today complaining of 10 out of 10 bilateral low back pain radiating to bilateral lower extremities as well as right-sided chest pain, patient states symptoms have been going on for 10 days. Patient denies any fever. Reports chronic cough. Requesting morphine for her pain. She states she follows up with [facility] back doctor and ran out of hydrocodone. Begging for hydrocodone rx for home use. Patient denies any injuries. Denies anything specifically exacerbating or relieving her pain. Review of Systems: Review of Systems: Constitutional: Denies fever or chills. [] Eyes: Denies change in visual acuity. [] HENT: Denies nasal congestion or sore throat. [] Respiratory: Denies cough or shortness of breath. [] Cardiovascular: D reports chest pain GI: Denies abdominal pain, nausea, vomiting, bloody stools or diarrhea. [] : Denies dysuria. [] Musculoskeletal: Reports bilateral low back pain radiating to bilateral lower extremities Integument: Denies rash. [] Neurologic: Denies headache, focal weakness or sensory changes. [] Psychiatric: Denies depression or anxiety. [] Heart Score: C/O Chest Pain: Yes HEART Score for Chest Pain: HEART Score for Chest Pain Response (Comments) Value History Slighlty/Non-Suspicious 0 ECG Normal 0 Age >45 - < 65 1 Risk Factors 1 or 2 Risk Factors 1 Troponin < Normal Limit 0 Total 2 Risk Factors: Risk Factors: DM, Current or recent (<one month) smoker, HTN, HLP, family hi story of CAD, obesity. Risk Scores: Score 0 - 3: 2.5% MACE over next 6 weeks - Discharge Home Score 4 - 6: 20.3% MACE over next 6 weeks - Admit for Clinical Observation Score 7 - 10: 72.7% MACE over next 6 weeks - Early Invasive Strategies Current Medications: Current Medications Medications (Trade) Dose Ordered Sig/[facility] Start Time Stop Time Status Last Admin Dose Admin Morphine Sulfate (Morphine Sulfate) 5 mg 1X ONCE 02/06/21 13:30 02/06/21 13:31 DC 02/06/21 14:09 5 MG Allergies: Allergies: Allergies Coded Allergies Type Severity Reaction Last Updated Verified ibuprofen Allergy Intermediate Rash 02/06/21 Yes ketorolac Allergy Intermediate Unknown 06/30/20 Yes naproxen Allergy Intermediate Rash 02/06/21 Yes acetaminophen Adverse Reaction Intermediate THROWS UP 02/06/21 Yes diclofenac Adverse Reaction Intermediate n/v 05/12/19 Yes Physical Exam: PE: Constitutional: Well developed, well nourished, no acute distress, non-toxic appearance. [] HENT: Normocephalic, atraumatic, bilateral external ears normal, oropharynx moist, no oral exudates, nose normal. [] Eyes: PERRLA, EOMI, conjunctiva normal, no discharge. [] Neck: Normal range of motion, no tenderness, supple, no stridor. [] Cardiovascular:Heart rate regular rhythm, no murmur [] Lungs & Thorax: Bilateral breath sounds clear to auscultation [] Abdomen: Bowel sounds normal, soft, no tenderness, no masses, no pulsatile masses. [] Skin: Warm, dry, no erythema, no rash. [] Back: Diffuse paraspinal muscle tenderness of bilateral lumbar spine, no midline lumbar spine tenderness, no CVA tenderness. [] Extremities: No tenderness, no cyanosis, no clubbing, ROM intact, no edema. [] Neurologic: Alert and oriented X 3, normal motor function, normal sensory function, no focal deficits noted. Cranial nerves II through XII intact Psychologic: Affect normal, judgement normal, mood normal. [] Current Patient Data: Labs: Laboratory Tests Test 02/06/21 13:47 02/06/21 14:00 02/06/21 14:54 02/06/21 16:40 White Blood Count 9.4 x10^3/uL (4.0-11.0) Red Blood Count 3.99 x10^6/uL (3.50-5.40) Hemoglobin 12.0 g/dL (12.0-15.5) Hematocrit 35.6 % (36.0-47.0) L Mean Corpuscular Volume 89 fL (79-100) Mean Corpuscular Hemoglobin 30 pg (25-35) Mean Corpuscular Hemoglobin Concent 34 g/dL (31-37) Red Cell Distribution Width 16.6 % (11.5-14.5) H Platelet Count 363 x10^3/uL (140-400) Neutrophils (%) (Auto) 73 % (31-73) Lymphocytes (%) (Auto) 17 % (24-48) L Monocytes (%) (Auto) 7 % (0-9) Eosinophils (%) (Auto) 3 % (0-3) Basophils (%) (Auto) 1 % (0-3) Neutrophils # (Auto) 6.9 x10^3/uL (1.8-7.7) Lymphocytes # (Auto) 1.6 x10^3/uL (1.0-4.8) Monocytes # (Auto) 0.6 x10^3/uL (0.0-1.1) Eosinophils # (Auto) 0.2 x10^3/uL (0.0-0.7) Basophils # (Auto) 0.1 x10^3/uL (0.0-0.2) Urine Opiates Screen Neg (NEG) Urine Methadone Screen Neg (NEG) Urine Barbiturates Neg (NEG) Urine Phencyclidine Screen Neg (NEG) Urine Amphetamine/Methamphetamine Neg (NEG) Urine Benzodiazepines Screen Neg (NEG) Urine Cocaine Screen Neg (NEG) Urine Cannabinoids Screen Neg (NEG) Urine Ethyl Alcohol Neg (NEG) Sodium Level 137 mmol/L (136-145) Potassium Level 4.5 mmol/L (3.5-5.1) Chloride Level 103 mmol/L (98-107) Carbon Dioxide Level 25 mmol/L (21-32) Anion Gap 9 (6-14) Blood Urea Nitrogen 13 mg/dL (7-20) Creatinine 0.7 mg/dL (0.6-1.0) Estimated GFR (Cockcroft-Gault) 86.9 BUN/Creatinine Ratio 19 (6-20) Glucose Level 95 mg/dL (70-99) Calcium Level 8.5 mg/dL (8.5-10.1) Magnesium Level 2.0 mg/dL (1.8-2.4) Total Bilirubin 0.2 mg/dL (0.2-1.0) Aspartate Amino Transferase (AST) 11 U/L (15-37) L Alanine Aminotransferase (ALT) 24 U/L (14-59) Alkaline Phosphatase 72 U/L (46-116) Troponin I Quantitative < 0.017 ng/mL (0.000-0.055) < 0.017 ng/mL (0.000-0.055) FX-[id number]-Type Natriuretic Peptide 114 pg/mL (0-124) Total Protein 6.9 g/dL (6.4-8.2) Albumin 3.6 g/dL (3.4-5.0) Albumin/Globulin Ratio 1.1 (1.0-1.7) Lipase 78 U/L (73-393) Serum Test, Qualitative Negative (NEG) Laboratory Tests 02/06/21 13:47 Laboratory Tests 02/06/21 14:54 Vital Signs: Vital Signs Date Time Temp Pulse Resp B/P (MAP) Pulse Ox O2 Delivery O2 Flow Rate FiO2 02/06/21 15:04 68 15 114/64 (81) 96 Room Air 02/06/21 13:35 98.7 98.7 EKG: EK interpreted by Dr. Weir sinus rhythm Hr 75 no STEMI[] Radiology/Procedures: Radiology/Procedures: []PROCEDURE: PORTABLE CHEST 1V EXAM: Chest, single view. HISTORY: Chest pain. COMPARISON: 07/01/2020 FINDINGS: A frontal view of the chest is obtained. There is no infiltrate, pleural effusion or pneumothorax. The heart is normal in size. IMPRESSION: No acute pulmonary finding. Electronically signed by: Dior Robins MD (02/06/2021 1:54 PM) [id number] DICTATED and SIGNED BY: DIOR ROBINS MD DATE: 02/06/21 [id number] Course & Med Decision Making: Course & Med Decision Making Pertinent Labs and Imaging studies reviewed. (See chart for details) This is a 55-year-old female patient well-known to this ED presenting today complaining of chest pain and chronic low back pain. Patient has been worked up for both back pain and chest pain multiple times. No known injury today, no cauda equina syndrome EKG, troponin, CBC CMP with no acute findings, chest x-ray is negative. Patient refused to wait for her second troponin. Discharged to home on cyclobenzaprine. Follow-up with her own PCP Zeus Disclaimer: Zeus Disclaimer: This electronic medical record was generated, in whole or in part, using a voice recognition dictation system. Departure Departure Impression: Primary Impression: Chest pain Qualified Codes: R07.9 - Chest pain, unspecified Additional Impression: Chronic back pain Qualified Codes: M54.42 - Lumbago with sciatica, left side; M54.41 - Lumbago with sciatica, right side; G89.29 - Other chronic pain Disposition: HOME / SELF CARE / HOMELESS Condition: STABLE Referrals: NO PCP (PCP) follow up with your doctor next week Patient Instructions: Back Pain, Adult, [id number], Chest Pain (Nonspecific) Additional Instructions: You were evaluated in the emergency room, your work-up was negative for any acute findings. Please follow-up with your primary care doctor in 1 week Scripts Cyclobenzaprine Hcl (CYCLOBENZAPRINE HCL) 10 Mg Tablet 1 TAB PO TID, #30 TAB Prov: MEMO NELSON APRN 02/06/21 MEMO NELSON APRN Feb 06, 2021 17:43
[2021-02-06 17:47] VITALS: BP 124/68
[2021-02-06] MEDS ORDERED: CYCL10TA2 PO (17:47)
== END 2021-02-06 17:59 | disposition home or self-care (01) ==
LOC: ER 12:56
DX: G89.29 Other chronic pain (principal); R07.89 Other chest pain; M54.41 Lumbago with sciatica, right side; M54.42 Lumbago with sciatica, left side; J44.9 Chronic obstructive pulmonary disease, unspecified; E78.00 Pure hypercholesterolemia, unspecified; K21.9 Gastro-esophageal reflux disease without esophagitis; Z87.891 Personal history of nicotine dependence; Z88.5 Allergy status to narcotic agent; Z88.6 Allergy status to analgesic agent; Z88.8 Allergy status to other drugs, medicaments and biological substances
CPT/HCPCS: 36415; 71045; 80053; 80307; 83690; 83735; 83880; 84484; 84703; 85025; 93005; 96374; 99285; J2270

== ENCOUNTER 2021-03-08 00:09 | Emergency (ER) | payer MEDICAID ==
[~2021-03-08] VITALS: Ht 167.6 cm; Wt 122.0 kg
[2021-03-08] MEDS ORDERED: HYDROcodone/APAP 5/325MG 1 TAB TABLET PO ONE (01:30)
--- NOTE | 2021-03-08 01:36 | ED.ADGEN ---
Past Medical History Past Medical History: COPD, Depression, GERD, High Cholesterol, Pneumonia, Sciatica, Other Additional Past Medical Histor: chronic pain, CELLULITIS Past Surgical History: Other Additional Past Surgical Histo: back, left arm Smoking Status: Never Smoker Alcohol Use: None Drug Use: None General Adult EDM: Chief Complaint: MECHANICAL FALL HPI: HPI: Patient is a 55 year old female coming in for follow-up and back pain after a fall. Patient says she lost her footing and tripped and fell backwards letting her bottom on her floor at her home. Denies loss conscious. Patient fell ambulate since. Complaining of pain along her entire spine. 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 Review of Systems: Review of Systems: All other systems within normal limits except for as noted in the HPI Current Medications: Current Medications Medications (Trade) Dose Ordered Sig/Jayy Start Time Stop Time Status Last Admin Dose Admin Acetaminophen/ Hydrocodone Bitart (Lortab 5/325) 1 tab 1X ONCE 03/08/21 01:30 03/08/21 01:31 DC 03/08/21 01:35 1 TAB Allergies: Allergies: Allergies Coded Allergies Type Severity Reaction Last Updated Verified ibuprofen Allergy Intermediate Rash 02/06/21 Yes ketorolac Allergy Intermediate Unknown 06/30/20 Yes naproxen Allergy Intermediate Rash 02/06/21 Yes acetaminophen Adverse Reaction Intermediate THROWS UP 02/06/21 Yes diclofenac Adverse Reaction Intermediate n/v 05/12/19 Yes Physical Exam: PE: Constitutional: Well developed, well nourished, no acute distress, non-toxic appearance. [] HENT: Normocephalic, atraumatic, bilateral external ears normal, nose normal. [] Eyes: PERRLA, conjunctiva normal, no discharge. [] Neck: No rigidity, supple, no stridor. [] Cardiovascular: Regular rate and rhythm, brisk cap refill [] Lungs & Thorax: Non labored symmetric respirations, no tachypnea or respiratory distress [] Abdomen: Soft, nondistended. Skin: Warm, dry, no erythema, no rash. [] Back: Unremarkable, no step-off deformity, tenderness over the entire thoracic, lumbar, and sacrum. Extremities: No deformities, range of motion grossly intact, no lower extremity edema [] Neurologic: Alert and oriented X 3, no focal deficits noted. [] Psychologic: Affect normal, judgement normal, mood normal. [] Current Patient Data: Vital Signs: Vital Signs Date Time Temp Pulse Resp B/P (MAP) Pulse Ox O2 Delivery O2 Flow Rate FiO2 03/08/21 01:35 97 03/08/21 00:27 98.6 72 16 142/75 (97) Room Air 98.6 EKG: EKG: [] Heart Score: C/O Chest Pain: No Risk Factors: Risk Factors: DM, Current or recent (<one month) smoker, HTN, HLP, family history of CAD, obesity. Risk Scores: Score 0 - 3: 2.5% MACE over next 6 weeks - Discharge Home Score 4 - 6: 20.3% MACE over next 6 weeks - Admit for Clinical Observation Score 7 - 10: 72.7% MACE over next 6 weeks - Early Invasive Strategies Radiology/Procedures: Radiology/Procedures: Three view thoracic spine History: Pain status post fall AP, swimmer's projection and lateral views of the thoracic spine were obtained. The vertebral bodies are aligned. There is no loss of vertebral body stature. C7-T2 are not well seen in the lateral swimmer's projection due to superposition of shoulders. There is mild levoconvex scoliosis and mild kyphosis. There is marginal spurring of the endplates. Intervertebral disc heights are preserved. Impression: No acute findings. End Impression Three view lumbosacral spine History: Pain AP, coned-down lateral and lateral views of the lumbosacral spine were obtained. The vertebral bodies are aligned. There is no loss of vertebral body stature. There is loss of intervertebral disc height at all levels especially at L1-L2 and L2-L3 L4-L5 and there is marginal spurring at endplates. Impression: Chronic discogenic disease. No acute findings. End Impression Sacrum coccyx 3 views History: Pain AP views of the sacrum and coccyx was obtained as well as a lateral view. There is posterior displacement of the coccyx. This is a difficult area to evaluate. There is some obscuration of bony detail of the sacrum due to overlying bowel gas. 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 No acute findings. Electronically signed by: Dale Zelaya III, MD (03/08/2021 1:52 AM) [facility][] Course & Med Decision Making: Course & Med Decision Making Pertinent Labs and Imaging studies reviewed. (See chart for details) [] Dragon Disclaimer: Zeus Disclaimer: This electronic medical record was generated, in whole or in part, using a voice recognition dictation system. Departure Departure Impression: Primary Impression: Fall Additional Impression: Back pain Disposition: HOME / SELF CARE / HOMELESS Condition: STABLE Referrals: NO PCP (PCP) Patient Instructions: Fall Prevention and Home Safety Additional Instructions: Follow-up with your chronic pain management provider if more pain medications needed Scripts Tramadol Hcl (TRAMADOL HCL) 50 Mg Tablet 50 MG PO Q6HRS PRN for PAIN for 2 Days, #8 TAB Prov: LAUREN FISH MD 03/08/21 Problem Qualifiers LAUREN FISH MD March 08, 2021 01:36
--- NOTE | 2021-03-08 01:54 | RAD ---
Three view thoracic spine History: Pain status post fall AP, swimmer's projection and lateral views of the thoracic spine were obtained. The vertebral bodies are aligned. There is no loss of vertebral body stature. C7-T2 are not well seen in the lateral swimmer's projection due to superposition of shoulders. There is mild levoconvex scol iosis and mild kyphosis. There is marginal spurring of the endplates. Intervertebral disc heights are preserved. Impression: No acute findings. End Impression Three view lumbosacral spine History: Pain AP, coned-down lateral and lateral views of the lumbosacral spine were obtained. The vertebral bodies are aligned. There is no loss of vertebral body stature. There is loss of interv ertebral disc height at all levels especially at L1-L2 and L2-L3 L4-L5 and there is marginal spurring at endplates. Impression: Chronic discogenic disease. No acute findings. End Impression Sacrum coccyx 3 views History: Pain AP views of the sacrum and coccyx was obtained as well as a lateral view. There is posterior displacement of the coccyx. This is a difficult area to evaluate. There is some ob scuration of bony detail of the sacrum due to overlying bowel gas. 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 No acute findings. Electronically signed by: Dale Zelaya III, MD (03/08/2021 1:52 AM) [facility]
[2021-03-08] MEDS ORDERED: TRAM50TA PO (01:58)
[2021-03-08 02:26] VITALS: BP 142/72
== END 2021-03-08 02:26 | disposition home or self-care (01) ==
LOC: ER 00:09
DX: M54.5 Low back pain (principal); M54.6 Pain in thoracic spine; M53.3 Sacrococcygeal disorders, not elsewhere classified; G89.11 Acute pain due to trauma; J44.9 Chronic obstructive pulmonary disease, unspecified; K21.9 Gastro-esophageal reflux disease without esophagitis; E78.00 Pure hypercholesterolemia, unspecified; G89.29 Other chronic pain; Z88.5 Allergy status to narcotic agent; Z88.6 Allergy status to analgesic agent; Z88.8 Allergy status to other drugs, medicaments and biological substances; W18.39XA Other fall on same level, initial encounter; Y93.89 Activity, other specified; Y92.89 Other specified places as the place of occurrence of the external cause; Y99.8 Other external cause status
CPT/HCPCS: 72072; 72100; 72220; 99285-25

== ENCOUNTER 2021-03-11 21:52 | Emergency (ER) | payer MEDICAID ==
[~2021-03-11] VITALS: Ht 165.1 cm; Wt 52.0 kg
[2021-03-11 22:00] VITALS: BP 148/97
[2021-03-11] MEDS ORDERED: ACETAMINOPHEN 500 MG TABLET PO ONE (22:30)
[2021-03-11] MEDS ORDERED: ONDANSETRON ODT 4 MG TAB.RAPDIS. PO ONE (22:30)
--- NOTE | 2021-03-11 22:41 | ED.ADGEN ---
Past Medical History Past Medical History: COPD, Depression, GERD, High Cholesterol, Pneumonia, Sciatica, Other Additional Past Medical Histor: chronic pain, CELLULITIS Past Surgical History: Other Additional Past Surgical Histo: back, left arm Smoking Status: Never Smoker Alcohol Use: None Drug Use: None General Adult EDM: Chief Complaint: MULTIPLE TRAUMA/FALL HPI: HPI: Patient is a 55 year old female who presents for back pain after a fall. She states that she fell into the bathroom at 3 AM, approximately 19 hours prior to arrival. Patient states she fell backwards onto her bottom is complaining of pain in her entire spine. No other injuries. Patient was seen here for the exact same complaint 3 days ago, patient has a history of drug-seeking behavior Review of Systems: Review of Systems: All other systems within normal limits except for as noted in the HPI Current Medications: Current Medications Medications (Trade) Dose Ordered Sig/Jayy Start Time Stop Time Status Last Admin Dose Admin Acetaminophen (Tylenol) 1,000 mg 1X ONCE 03/11/21 22:30 03/11/21 22:31 UNV Ondansetron HCl (Zofran Odt) 4 mg 1X ONCE 03/11/21 22:30 03/11/21 22:31 UNV Allergies: Allergies: Allergies Coded Allergies Type Severity Reaction Last Updated Verified ibuprofen Allergy Intermediate Rash 02/06/21 Yes ketorolac Allergy Intermediate Unknown 06/30/20 Yes naproxen Allergy Intermediate Rash 02/06/21 Yes acetaminophen Adverse Reaction Intermediate THROWS UP 02/06/21 Yes diclofenac Adverse Reaction Intermediate n/v 05/12/19 Yes Physical Exam: PE: Constitutional: Well developed, well nourished, no acute distress, non-toxic appearance. [] HENT: Normocephalic, atraumatic, bilateral external ears normal, nose normal. [] Eyes: PERRLA, conjunctiva normal, no discharge. [] Neck: No rigidity, supple, no stridor. [] Cardiovascular: Regular rate and rhythm, brisk cap refill [] Lungs & Thorax: Non labored symmetric respirations, no tachypnea or respiratory distress [] Abdomen: Soft, nondistended. Skin: Warm, dry, no erythema, no rash. [] Back: Unremarkable, patient complains of tenderness over her entire spine, no step-off or deformity Extremities: No deformities, range of motion grossly intact, no lower extremity edema [] Neurologic: Alert and oriented X 3, no focal deficits noted. [] Psychologic: Affect normal, judgement normal, mood normal. [] EKG: EKG: [] Heart Score: C/O Chest Pain: No Risk Factors: Risk Factors: DM, Current or recent (<one month) smoker, HTN, HLP, family history of CAD, obesity. Risk Scores: Score 0 - 3: 2.5% MACE over next 6 weeks - Discharge Home Score 4 - 6: 20.3% MACE over next 6 weeks - Admit for Clinical Observation Score 7 - 10: 72.7% MACE over next 6 weeks - Early Invasive Strategies Radiology/Procedures: Radiology/Procedures: [] Course & Med Decision Making: Course & Med Decision Making Imaging studies ordered, discussed with patient it was she will have again narcotic medication due to her frequent falls with that her increased risk. Ordered Tylenol, her chart says there is an adverse reaction due to vomiting so ordered Zofran as well. Patient decided to leave AMA. Zeus Disclaimer: Zeus Disclaimer: This electronic medical record was generated, in whole or in part, using a voice recognition dictation system. Departure Departure Impression: Primary Impression: Drug-seeking behavior Disposition: LEFT AGAINST MEDICAL ADVICE Condition: STABLE Referrals: NO PCP (PCP) LAUREN FISH MD Mar 11, 2021 22:41
== END 2021-03-11 22:38 | disposition left against medical advice (07) ==
LOC: ER 21:52
DX: Z76.5 Malingerer [conscious simulation] (principal); M54.5 Low back pain; M54.6 Pain in thoracic spine; G89.11 Acute pain due to trauma; K21.9 Gastro-esophageal reflux disease without esophagitis; E78.00 Pure hypercholesterolemia, unspecified; J44.9 Chronic obstructive pulmonary disease, unspecified; G89.29 Other chronic pain; Z88.5 Allergy status to narcotic agent; Z88.6 Allergy status to analgesic agent; Z88.8 Allergy status to other drugs, medicaments and biological substances; W18.39XA Other fall on same level, initial encounter; Y93.89 Activity, other specified; Y92.091 Bathroom in other non-institutional residence as the place of occurrence of the external cause; Y99.8 Other external cause status
CPT/HCPCS: 99284

== ENCOUNTER 2021-06-07 13:26 | Emergency (ER) | payer MEDICAID ==
[~2021-06-07] VITALS: Ht 165.1 cm; Wt 77.0 kg
[~2021-06-07 13:26] MED LIST changes: -CLIN150C15 PO; +CLIN150C16 PO; -DOXY100C2 PO; +DOXY100C3 PO
--- NOTE | 2021-06-07 14:29 | PHYS DOC ---
Past Medical History Past Medical History: COPD, Depression, GERD, High Cholesterol, Pneumonia, Sciatica, Other Additional Past Medical Histor: chronic pain, CELLULITIS Past Surgical History: Other Additional Past Surgical Histo: back, left arm Smoking Status: Current Every Day Smoker Alcohol Use: None Drug Use: None General Adult EDM: Chief Complaint: PAIN CONTROL HPI: HPI: 55-year-old female past medical history of hyperlipidemia, depression, obesity, GERD and tobacco dependence/COPD, presents to the ED with complaints of " too much pain, too much pain, I need 1 tramadol." C/o sharp, nonradiating chest pain for the past 2 days with associated 5 episodes of loose watery, nonbloody diarrhea today. Not vaccinated for Covid. Also states she has chronic back pain and right leg pain, points to old bruise on right anterior saldivar, "You see this old bruise? It's too much pain." Review of Systems: Review of Systems: Constitutional: Denies fever or chills. [] Eyes: Denies change in visual acuity. [] HENT: Denies nasal congestion or sore throat. [] Respiratory: Denies cough or shortness of breath. [] Cardiovascular: Denies chest pressure/tightness/squeezing or edema. [] GI: Denies abdominal pain, nausea, vomiting, bloody stools or diarrhea. [] : Denies dysuria or hematuria Musculoskeletal: Denies flank pain or joint pain. [] Integument: Denies rash or diaphoresis Neurologic: Denies headache, focal weakness or sensory changes. [] Endocrine: Denies polyuria or polydipsia. [] Lymphatic: Denies swollen glands. [] Psychiatric: Denies depression or anxiety. [] Heart Score: C/O Chest Pain: Yes HEART Score for Chest Pain: HEART Score for Chest Pain Response (Comments) Value History Slighlty/Non-Suspicious 0 ECG Normal 0 Age >45 - < 65 1 Risk Factors >3 Risk Factors or Hx CAD 2 Troponin < Normal Limit 0 Total 3 Risk Factors: Risk Factors: DM, Current or recent (<one month) smoker, HTN, HLP, family history of CAD, obesity. Risk Scores: Score 0 - 3: 2.5% MACE over next 6 weeks - Discharge Home Score 4 - 6: 20.3% MACE over next 6 weeks - Admit for Clinical Observation Score 7 - 10: 72.7% MACE over next 6 weeks - Early Invasive Strategies Allergies: Allergies: Allergies Coded Allergies Type Severity Reaction Last Updated Verified ibuprofen Allergy Intermediate Rash 02/06/21 Yes ketorolac Allergy Intermediate Unknown 06/30/20 Yes naproxen Allergy Intermediate Rash 02/06/21 Yes acetaminophen Adverse Reaction Intermediate THROWS UP 02/06/21 Yes diclofenac Adverse Reaction Intermediate n/v 05/12/19 Yes Physical Exam: PE: Constitutional: Well developed, well nourished, no acute distress, non-toxic appearance, moves in and out of ed stretcher w/no distress HENT: Normocephalic, atraumatic, Eyes: EOMI, conjunctiva normal, no discharge. Neck: Normal range of motion, supple, Cardiovascular: S1/2 present, regular rhythm Lungs & Thorax: Speaking in full sentences, bilateral equal chest rise, no tachypnea or increased work of breathing Abdomen: soft, no tenderness, Skin: Warm, dry, no erythema, no rash. [] Back: No midline spinal step-offs or tenderness, no CVA tenderness. [] Extremities: No tenderness, no cyanosis, no lower extremity edema Neurologic: Alert and oriented X 3, normal motor function, normal sensory function, no focal deficits noted. [] Psychologic: Affect normal, judgement normal, mood normal. 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 PHYSICIAN: GAIL LEROY DO REASON: CHEST PAIN PROCEDURE: PORTABLE CHEST 1V EXAMINATION: Chest radiograph. VIEWS: Single view COMPARISON: 02/06/2021 INDICATION:55 years, Female, chest pain. FINDINGS: Normal cardiomediastinal silhouette. No focal consolidation. No pleural effusion or pneumothorax. No acute osseous process. IMPRESSION: No acute cardiopulmonary process. Electronically signed by: Elena Zeng MD (06/07/2021 2:40 PM) [facility] DICTATED and SIGNED BY: ELENA ZENG MD DATE: 06/07/21 [id number] 0 Course & Med Decision Making: Course & Med Decision Making Pertinent Labs and Imaging studies reviewed. (See chart for details) Concern for atypical chest pain for 2 days, low risk heart score. EMR was reviewed and patient is a well known drug seeker. Complains of nonspecific low back pain that is not midline in nature w/no saddle anesthesia, weakness or radiculopathy. Pt points to a "bruise" on her left leg-skin area is hyperpig mented but with no petechia or contusions or swelling. I highly suspect drug- seeking behavior. Prior to reviewing labs, imaging, and ED evaluation, patient requested to be discharged AGAINST MEDICAL ADVICE stating her pain improved after ketamine (she was sleeping on re-evaluation). Patient refused to wait for discharge papers. The patient has decided to leave our facility against medical advice. I have assessed patient's ability to make informed decision and feel the patient has the capacity to comprehend information regarding the current medical condition and appreciates the impact of the disease or condition and the consequences of various options for treatment, including foregoing treatment. The patient possesses the ability to evaluate all treatment options, comparing the risks and benefits of each option, communicate his or her choice in a consistent manner over time, and is able to make rational choices. I explained to the patient further testing, treatment, and evaluation I would like to perform in the emergency department visit as well as any possible alternatives that can be accomplished in a timely manner. I have outlined the possible risks of foregoing any or all of these interventions and the patient understands and acknowledges that the decision to leave may result in undesirable consequences such as , permanent disability, and/or loss of current lifestyle. Even though leaving AMA is not ideal, I have instructed the patient to follow any discharge instructions given, take any medications prescribed, and resume care as soon as possible with another provider. This conversation was witnessed by another member of the emergency department staff and we clearly communicated the patient is welcome to return anytime to continue care at our facility. Zeus Disclaimer: Zeus Disclaimer: This electronic medical record was generated, in whole or in part, using a voice recognition dictation system. Departure Departure Impression: Primary Impression: Chest pain Additional Impressions: Chronic pain Left against medical advice Disposition: 07 LEFT AGAINST MEDICAL ADVICE Condition: STABLE Referrals: NO PCP (PCP) Follow-up with your primary care physician in 24 to 48 hours OR FOLLOW UP WITH FAMILY MEDICINE: [address] [place] [address] Patient Instructions: Chest Pain (Nonspecific), Chronic Pain Management, Discharge Against Medical Advice Additional Instructions: FOLLOW UP WITH PAIN MANAGEMENT: FOR DEFINITIVE MANAGEMENT [facility] [address] [place], [address] [place] [address] EMERGENCY DEPARTMENT GENERAL DISCHARGE INSTRUCTIONS Thank you for coming to [facility] Emergency Department (ED) today and trusting us with you care. We trust that you had a positive experience in our Emergency Department. If you wish to speak to the department management, you may call the Director at [phone]. YOUR FOLLOW UP INSTRUCTIONS ARE FOLLOWS: 1. Do you have a private Doctor? If you do not have a private doctor, please ask for a resource list of physicians or clinics that may be able to assist you with follow up care. 2. The Emergency Physicain has interpreted your x-rays. The X-Ray specialist will also review them. If there is a change in the findings, you will be notified in 48 hours when at all possible. 3. A lab test or culture has been done, your results will be reviewed and you will be notified if you need a change in treatment. ADDITIONAL INSTRUCTIONS AND INFORMATION: 1. Your care today has been supervised by a physician who is specially trained in emergency care. Many problems require more than one evaluation for a complete diagnosis and treatment. We recommend that you schedule your follow up appointment as recommended to ensure complete treatment of you illness or injury. If you are unable to obtain follow up care and continue to have a problem, or if your condition worsens, we recommend that you return to the ED. 2. We are not able to safely determine your condition over the phone nor are we able to give sound medical advice over the phone. For these safety reasons, if you call for medical advice we will ask you to come to the ED for further evaluation. 3. If you have any questions regarding these discharge instructions please call the ED at [phone]. SAFETY INFORMATION: In the interest of safety, wellness, and injury prevention; we encourage you to wear your sealbelt, if you smoke; quite smoking, and we encourage family to use a protective helmet for bicycling and other sporting events that present an increased risk for head injury. IF YOUR SYMPTOMS WORSEN OR NEW SYMPTOMS DEVELOP, OR YOU HAVE CONCERNS ABOUT YOUR CONDITION; OR IF YOUR CONDITION WORSENS WHILE YOU ARE WAITING FOR YOUR FOLLOW UP APPOINTMENT; EITHER CONTACT YOUR PRIMARY CARE DOCTOR, THE PHYSICIAN WHOSE NAME AND NUMBER YOU WERE GIVEN, OR RETURN TO THE ED IMMEDIATELY. GAIL FUNES DO Jun 07, 2021 14:29
[2021-06-07] MEDS ORDERED: KETAMINE HCL IN NACL, ISO-OSM 50 MG/5 ML SYRINGE IM ONE (14:30)
[2021-06-07 14:38] LABS: BASO # 0.1 x10^3/uL (0.0-0.2); BASO % 1 % (0-3); EOS # 0.2 x10^3/uL (0.0-0.7); EOS % 2 % (0-3); HEMOGLOBIN 12.1 g/dL (12.0-15.5); LYMPH # 1.5 x10^3/uL (1.0-4.8); LYMPH % 16 % (24-48); MEAN CORPUSCULAR HEMOGLOBIN 31 pg (25-35); MEAN CORPUSCULAR HGB CONC 34 g/dL (31-37); MEAN CORPUSCULAR VOLUME 91 fL (79-100); MONO # 0.7 x10^3/uL (0.0-1.1); MONO % 7 % (0-9); NEUT # 7.1 x10^3/uL (1.8-7.7); NEUT % 74 % (31-73); PLATELET COUNT 450 x10^3/uL (140-400); RED BLOOD COUNT 3.94 x10^6/uL (3.50-5.40); RED CELL DISTRIBUTION WIDTH 16.3 % (11.5-14.5); WHITE BLOOD COUNT 9.6 x10^3/uL (4.0-11.0)
--- NOTE | 2021-06-07 14:42 | RAD ---
EXAMINATION: Chest radiograph. VIEWS: Single view COMPARISON: 02/06/2021 INDICATION:55 years, Female, chest pain. FINDINGS: Normal cardiomediastinal silhouette. No focal consolidation. No pleural effusion or pneumothorax. No acute osseous process. IMPRESSION: No acute cardiopulmonary process. Electronically signed by: Ani Zeng MD (06/07/2021 2:40 PM) [facility]
[2021-06-07 14:51] LABS: CALCIUM 9.2 mg/dL (8.5-10.1); CREATININE 0.8 mg/dL (0.6-1.0); GFR 74.5; POTASSIUM 4.2 mmol/L (3.5-5.1)
[2021-06-07 14:57] LABS: ALBUMIN 3.8 g/dL (3.4-5.0); ALBUMIN/GLOBULIN RATIO 1.2 (1.0-1.7); MAGNESIUM 2.1 mg/dL (1.8-2.4); TOTAL BILIRUBIN 0.2 mg/dL (0.2-1.0); TOTAL PROTEIN 7.1 g/dL (6.4-8.2)
[2021-06-07 15:31] VITALS: BP 181/89
--- NOTE | 2021-06-07 21:17 | EKG ---
[facility] [address] [place] [address] Test Date: 2021-06-07 Test Time: 13:56:38 Pat Name: JACKY GLASER Department: Room: Gender: F [employer] Machine: : 1965 Requested By: GAIL LEROY Order Number: [id number] Reading MD: Measurements Intervals Liberal Rate: 77 P: 36 NE: 158 QRS: 37 QRSD: 80 T: 28 QT: 372 QTc: 423 Interpretive Statements SINUS RHYTHM NORMAL ECG RI6.02 No previous ECG available for comparison
== END 2021-06-07 15:55 | disposition left against medical advice (07) ==
LOC: ER 13:26
DX: R07.89 Other chest pain (principal); G89.29 Other chronic pain; R19.7 Diarrhea, unspecified; J44.9 Chronic obstructive pulmonary disease, unspecified; K21.9 Gastro-esophageal reflux disease without esophagitis; E78.00 Pure hypercholesterolemia, unspecified; F17.200 Nicotine dependence, unspecified, uncomplicated; Z88.5 Allergy status to narcotic agent; Z88.6 Allergy status to analgesic agent; Z88.8 Allergy status to other drugs, medicaments and biological substances
CPT/HCPCS: 36415; 71045; 80053; 83690; 83735; 84484; 85025; 93005; 96372; 99285

== ENCOUNTER 2021-07-06 17:00 | Emergency (ER) | payer MEDICAID ==
[~2021-07-06] VITALS: Ht 165.1 cm; Wt 124.1 kg
[2021-07-06] MEDS ORDERED: traMADol 50 MG TABLET PO ONE (17:15)
--- NOTE | 2021-07-06 17:15 | PHYS DOC ---
Past Medical History Past Medical History: COPD, Depression, GERD, High Cholesterol, Pneumonia, Sciatica, Other Additional Past Medical Histor: chronic pain, CELLULITIS Past Surgical History: Other Additional Past Surgical Histo: back, left arm Smoking Status: Current Every Day Smoker Alcohol Use: None Drug Use: None General Adult EDM: Chief Complaint: LOWER EXTREMITY SWELLING HPI: HPI: Patient is a 55 year old female with a history of chronic low back pain, chronic lower extremity pain and swelling present to ER due to pain in her back and of leg area. Patient said she ran out of her tramadol for the last 4 days. Patient would like to have some tramadol for pain control. Patient denies any chest pain, no abdominal pain, no cough, no fever. Patient denies any injury. Patient denies any bowel bladder incontinence. Patient is well no to this department due to frequent visits for the same problem. Review of Systems: Review of Systems: Constitutional: Denies fever or chills. [] Eyes: Denies change in visual acuity. [] HENT: Denies nasal congestion or sore throat. [] Respiratory: Denies cough or shortness of breath. [] Cardiovascular: Denies chest pain or edema. [] GI: Denies abdominal pain, nausea, vomiting, bloody stools or diarrhea. [] : Denies dysuria. [] Musculoskeletal: Positive for low back pain, positive lower extremities pain. Integument: Denies rash. [] Neurologic: Denies headache, focal weakness or sensory changes. [] Endocrine: Denies polyuria or polydipsia. [] Lymphatic: Denies swollen glands. [] Psychiatric: Denies depression or anxiety. [] Heart Score: C/O Chest Pain: N/A Risk Factors: Risk Factors: DM, Current or recent (<one month) smoker, HTN, HLP, family history of CAD, obesity. Risk Scores: Score 0 - 3: 2.5% MACE over next 6 weeks - Discharge Home Score 4 - 6: 20.3% MACE over next 6 weeks - Admit for Clinical Observation Score 7 - 10: 72.7% MACE over next 6 weeks - Early Invasive Strategies Allergies: Allergies: Allergies Coded Allergies Type Severity Reaction Last Updated Verified ibuprofen Allergy Intermediate Rash 07/06/21 Yes ketorolac Allergy Intermediate Unknown 07/06/21 Yes naproxen Allergy Intermediate Rash 07/06/21 Yes acetaminophen Adverse Reaction Intermediate THROWS UP 07/06/21 Yes diclofenac Adverse Reaction Intermediate n/v 07/06/21 Yes Physical Exam: PE: Constitutional: Well developed, well nourished, no acute distress, non-toxic appearance. [] HENT: Normocephalic, atraumatic, bilateral external ears normal, oropharynx moist, no oral exudates, nose normal. [] Eyes: PERRLA, EOMI, conjunctiva normal, no discharge. [] Neck: Normal range of motion, no tenderness, supple, no stridor. [] Cardiovascular:Heart rate regular rhythm, no murmur [] Lungs & Thorax: Bilateral breath sounds clear to auscultation [] Abdomen: Bowel sounds normal, soft, no tenderness, no masses, no pulsatile masses. [] Skin: Warm, dry, no erythema, no rash. [] Back: No tenderness, no CVA tenderness. [] Extremities: bilateral l lower extremities swelling, pitting edema 2+, chronic, baseline per patient. Neurologic: Alert and oriented X 3, normal motor function, normal sensory function, no focal deficits noted. [] Psychologic: Affect normal, judgement normal, mood normal. [] EKG: EKG: [] Radiology/Procedures: Radiology/Procedures: [] Course & Med Decision Making: Course & Med Decision Making Pertinent Labs and Imaging studies reviewed. (See chart for details) Patient is a 55-year-old female with chronic low back pain, chronic bilateral extremity pain and swelling, present to ER because she ran out of her tramadol, she is in need of pain control. No injury, no chest pain no trouble breathing. No further work-up needed at this time Dragon Disclaimer: Zeus Disclaimer: This electronic medical record was generated, in whole or in part, using a voice recognition dictation system. Departure Departure Impression: Primary Impression: Chronic pain of lower extremity, bilateral Additional Impression: Chronic back pain Disposition: HOME / SELF CARE / HOMELESS Condition: STABLE Referrals: NO PCP (PCP) Follow-up with your family physician this week . Patient Instructions: Chronic Back Pain, Chronic Pain Additional Instructions: Thank you for visiting our Emergency Department. We appreciate you trusting us with your care. If any additional problems come up don't hesitate to return to visit us. Please follow up with your primary care provider so they can plan additional care if needed and know about the problem that you had. If symptoms worsen come back to the Emergency Department. Any concerning symptoms that start such as chest pain, shortness of air, weakness or numbness on one side of the body, running high fevers or any other concerning symptoms return to the ER. Scripts Tramadol Hcl (TRAMADOL HCL) 50 Mg Tablet 50 MG PO Q6HRS PRN for PAIN, #10 TAB Prov: SAILAJA MOLINA DO 07/06/21 SAILAJA MOLINA DO Jul 06, 2021 17:15
[2021-07-06] MEDS ORDERED: TRAM50TA PO (17:19)
[2021-07-06 17:27] VITALS: BP 164/88
== END 2021-07-06 17:27 | disposition home or self-care (01) ==
LOC: ER 17:00
DX: G89.29 Other chronic pain (principal); M54.5 Low back pain; M79.605 Pain in left leg; M79.604 Pain in right leg; J44.9 Chronic obstructive pulmonary disease, unspecified; K21.9 Gastro-esophageal reflux disease without esophagitis; E78.00 Pure hypercholesterolemia, unspecified; F17.200 Nicotine dependence, unspecified, uncomplicated; Z88.5 Allergy status to narcotic agent; Z88.6 Allergy status to analgesic agent; Z88.8 Allergy status to other drugs, medicaments and biological substances
CPT/HCPCS: 99283

== ENCOUNTER 2021-10-04 13:44 | Emergency (ER) | payer MEDICAID ==
[~2021-10-04] VITALS: Ht 165.1 cm; Wt 90.0 kg
[~2021-10-04 13:44] MED LIST changes: +CYCL10TA19 PO; -CYCL10TA2 PO
[2021-10-04 13:55] VITALS: BP 110/58
[2021-10-04] MEDS ORDERED: traMADol 50 MG TABLET PO ONE (14:15)
--- NOTE | 2021-10-04 14:24 | PHYS DOC ---
Past Medical History Past Medical History: COPD, Depression, GERD, High Cholesterol, Pneumonia, Sciatica, Other Additional Past Medical Histor: chronic pain, CELLULITIS Past Surgical History: Other Additional Past Surgical Histo: back, left arm Smoking Status: Current Every Day Smoker Alcohol Use: None Drug Use: None General Adult EDM: Chief Complaint: BACK PAIN - NO INJURY HPI: HPI: Patient is a 56-year-old female well-known to this facility who presents to the emergency department for pain along her entire back. Patient reports that she was in the shower and slipped and fell backwards. She is reporting pain along her entire back that she rates 10 out of 10. She did not hit her head, denies loss of consciousness, denies nausea/vomiting and has been able to ambulate since. Patient receives tramadol and hydrocodone for her chronic pain. She has a history of drug-seeking behavior and chronic pain. Review of Systems: Review of Systems: 14 body systems of the review of systems have been reviewed. See HPI for pertinent positive and negative responses, otherwise all other systems are negative, nonpertinent or noncontributory Heart Score: C/O Chest Pain: N/A Risk Factors: Risk Factors: DM, Current or recent (<one month) smoker, HTN, HLP, family history of CAD, obesity. Risk Scores: Score 0 - 3: 2.5% MACE over next 6 weeks - Discharge Home Score 4 - 6: 20.3% MACE over next 6 weeks - Admit for Clinical Observation Score 7 - 10: 72.7% MACE over next 6 weeks - Early Invasive Strategies Allergies: Allergies: Allergies Coded Allergies Type Severity Reaction Last Updated Verified ibuprofen Allergy Intermediate Rash 07/06/21 Yes ketorolac Allergy Intermediate Unknown 07/06/21 Yes naproxen Allergy Intermediate Rash 07/06/21 Yes acetaminophen Adverse Reaction Intermediate THROWS UP 07/06/21 Yes diclofenac Adverse Reaction Intermediate n/v 07/06/21 Yes Physical Exam: PE: Constitutional: Well developed, well nourished, no acute distress, non-toxic appearance. [] HENT: Normocephalic, atraumatic, bilateral external ears normal, oropharynx moist, no oral exudates, nose normal. [] Eyes: PERRL, EOMI, conjunctiva normal, no discharge. [] Neck: Normal range of motion, no bony spinal tenderness, no stepoffs or deformities, supple, no stridor. [] Cardiovascular: Normal peripheral perfusion Lungs & Thorax: Normal work of breathing, no tachypnea, no chest wall pain with palpation Abdomen: Bowel sounds normal, soft, no tenderness, no masses, no pulsatile masses. [] Skin: Warm, dry, no erythema, no rash. [] Back: No bony spinal tenderness, normal range of motion Extremities: No tenderness, no cyanosis, no clubbing, ROM intact, no edema. [] Neurologic: Alert and oriented X 3, normal motor function, normal sensory function, no focal deficits noted. [] Psychologic: Affect normal, judgement normal, mood normal. [] Current Patient Data: Vital Signs: Vital Signs Date Time Temp Pulse Resp B/P (MAP) Pulse Ox O2 Delivery O2 Flow Rate FiO2 10/04/21 13:55 99.1 103 24 110/58 (75) 98 Room Air 99.1 EKG: EKG: [] Radiology/Procedures: Radiology/Procedures: [] Course & Med Decision Making: Course & Med Decision Making Pertinent Labs and Imaging studies reviewed. (See chart for details) [] Patient presents to the emergency department for pain along her entire back that occurred today when she slipped in the shower and fell backwards. Patient denies hitting her head, loss of consciousness, nausea, vomiting. [place] head ct rule: ct not necessary. I discussed imaging with patient and she is refusing any imaging of her spine. It appears that patient was seen in this [facility] with the exact same complaint in February of this year and had imaging of her entire spine performed. Patient is alert and oriented x4 and capable of making her own decisions. Patient is requesting pain management. Patient's pain was treated in the emergency department today. It appears that she filled a 30-day supply of 10 mg Lortab 10 days ago. Patient is advised to follow-up with her primary care provider if she requires any additional pain management. I discussed with patient all findings and diagnostic testing as well as the need to follow-up with PCP for further evaluation and treatment or return to the ER if any new or worsening symptoms. Strict return precautions were also discussed at length. Patient voiced understanding and agreement with the plan. Patient is hemodynamically stable at the time of disposition. Zeus Disclaimer: Zeus Disclaimer: This electronic medical record was generated, in whole or in part, using a voice recognition dictation system. Departure Departure Impression: Primary Impression: Back pain Qualified Codes: M54.9 - Dorsalgia, unspecified Disposition: 01 HOME / SELF CARE / HOMELESS Condition: GOOD Referrals: NO PCP (PCP) Patient Instructions: Back Pain, Adult Additional Instructions: You are seen in this emergency department for back pain following a fall. You refused any imaging of your spine. Your pain was treated in the emergency department. If you require any additional pain management, you need to contact your primary care provider. Please return to the emergency department if you develop any new injuries, loss of bowel or bladder, numbness or tingling in your groin or down your legs, intractable vomiting. HERI FARRIS RUBBER CUTTER Oct 04, 2021 14:24
== END 2021-10-04 14:34 | disposition home or self-care (01) ==
LOC: ER 13:44
DX: M54.9 Dorsalgia, unspecified (principal); G89.11 Acute pain due to trauma; J44.9 Chronic obstructive pulmonary disease, unspecified; K21.9 Gastro-esophageal reflux disease without esophagitis; E78.00 Pure hypercholesterolemia, unspecified; G89.29 Other chronic pain; F17.200 Nicotine dependence, unspecified, uncomplicated; Z88.5 Allergy status to narcotic agent; Z88.6 Allergy status to analgesic agent; Z88.8 Allergy status to other drugs, medicaments and biological substances; W01.0XXA Fall on same level from slipping, tripping and stumbling without subsequent striking against object, initial encounter; Y93.89 Activity, other specified; Y92.89 Other specified places as the place of occurrence of the external cause; Y99.8 Other external cause status
CPT/HCPCS: 99283

== ENCOUNTER 2021-11-28 15:26 | Emergency (ER) | payer MEDICAID ==
[~2021-11-28] VITALS: Ht 165.1 cm; Wt 86.0 kg
[~2021-11-28 15:26] MED LIST changes: -FLUC200T4 PO; +FLUC200T6 PO
[2021-11-28 15:48] VITALS: BP 159/92
--- NOTE | 2021-11-28 16:24 | PHYS DOC ---
Past Medical History Past Medical History: COPD, Depression, GERD, High Cholesterol, Pneumonia, Sciatica, Other Additional Past Medical Histor: chronic pain, CELLULITIS Past Surgical History: Other Additional Past Surgical Histo: back, left arm Smoking Status: Never Smoker Alcohol Use: None Drug Use: None General Adult EDM: Chief Complaint: PAIN CONTROL HPI: HPI: Patient is a 56 year old female who presents with states 3 days ago she fell in her bathroom when she tripped in shower and fell backward. Patient then shows me a large healing bruise to her mid lower abdomen and I stated how to do fall backward without bruising but you have bruising to your lower abdomen. Patient then states " oh yes, I fell forward." Patient cannot give me specifics. Patient is known to come into the ER asking for pain medication and is usually tramadol. When patient is flipped up on [employer] tracks 2 days ago she received 15 tramadol and 2 days prior to that she received hydrocodone. She then states that she has medication at home and she wants a hydrocodone here. She states then that she is allergic to tramadol. She also states that she does not have a primary care physician. I asked her where she got the tramadol or the hydrocodone from she stated that she "called her physician and they gave her some." I stated to the patient that she has gotten her tramadol 2 days ago and I was not going to give her more. She then stated "no I have no pain medication." I asked her where all her pain medication went from 2 days ago. She could not give me an answer. She also could not give me an answer as to how she felt for to get the bruising. Then states that her lower back is also hurting her. This is chronic. Patient is rating her pain a 10 out of 10 and is asking for 1 hydrocodone why she is here. She denies hitting her head, neck pain, syncope, nausea, vomiting, diarrhea, urinary symptoms, blood in her urine, fever, chest pain, shortness of breath, vision change, focal weakness, numbness or tingling, other joint pain. Review of Systems: Review of Systems: Constitutional: Denies fever or chills. [] Eyes: Denies change in visual acuity. [] HENT: Denies nasal congestion or sore throat. [] Respiratory: Denies cough or shortness of breath. [] Cardiovascular: Denies chest pain or edema. [] GI: +lower abdominal pain, denies nausea, vomiting, bloody stools or diarrhea. [] : Denies dysuria. [] Musculoskeletal: +Lower back pain or denies joint pain. [] Integument: Denies rash. + Lower abdomen bruising [] Neurologic: Denies headache, focal weakness or sensory changes. [] Endocrine: Denies polyuria or polydipsia. [] Lymphatic: Denies swollen glands. [] Psychiatric: Denies depression or anxiety. [] Heart Score: C/O Chest Pain: No Allergies: Allergies: Allergies Coded Allergies Type Severity Reaction Last Updated Verified ibuprofen Allergy Intermediate Rash 07/06/21 Yes ketorolac Allergy Intermediate Unknown 07/06/21 Yes naproxen Allergy Intermediate Rash 07/06/21 Yes acetaminophen Adverse Reaction Intermediate THROWS UP 07/06/21 Yes diclofenac Adverse Reaction Intermediate n/v 07/06/21 Yes Physical Exam: PE: Constitutional: Well developed, well nourished, no acute distress, non-toxic appearance. [] HENT: Normocephalic, atraumatic, bilateral external ears normal, oropharynx moist, no oral exudates, nose normal. [] Eyes: PERRLA, EOMI, conjunctiva normal, no discharge. [] Neck: Normal range of motion, no tenderness, supple, no stridor. [] Cardiovascular:Heart rate regular rhythm, no murmur [] Lungs & Thorax: Bilateral breath sounds clear to auscultation [] Abdomen: Bowel sounds normal, soft, mid lower tenderness, no masses, no pulsatile masses. [] Skin: Warm, dry, no erythema, no rash. Bruise to lower abdomen that appears to be healing [] Back: lower bony tenderness, no CVA tenderness. [] Extremities: No tenderness, no cyanosis, no clubbing, ROM intact, no edema. [] Neurologic: Alert and oriented X 3, normal motor function, normal sensory function, no focal deficits noted. [] Psychologic: Affect normal, judgement normal, mood normal. [] Current Patient Data: Vital Signs: Vital Signs Date Time Temp Pulse Resp B/P (MAP) Pulse Ox O2 Delivery O2 Flow Rate FiO2 11/28/21 15:48 98.4 89 20 159/92 (114) 98 Room Air 98.4 EKG: EKG: [] Radiology/Procedures: Radiology/Procedures: [] Impression: [facility] [address] [place] [address] IMAGING REPORT Signed PATIENT: AMADOR GLASERCOUNT: [id number] : 1965 LOCATION: ER AGE: 56 SEX: F EXAM STATUS: REG ER ORD. PHYSICIAN: RICHARD MCELROY APRN REASON: pain after fall PROCEDURE: CT LUMBAR SPINE RECONSTRUCTION Exam: 1. CT abdomen/pelvis without intravenous contrast 2. CT lumbar spine reconstruction without contrast Indication: Fall with large bruise to mid and left lower abdomen Comparison: MR lumbar spine 07/07/2018 Technique: Helical CT imaging performed of the abdomen and pelvis without the use of intravenous contrast. Sagittal and coronal reformats were obtained. CT lumbar spine reconstruction without contrast was obtained with axial, sagittal, and coronal reformats. One or more of the following individualized dose reduction techniques were utilized for this examination: 1. Automated exposure control 2. Adjustment of the mA and/or kV according to patient size 3. Use of iterative reconstruction technique. Findings: CT abdomen and pelvis: Inherently limited evaluation without intravenous contrast. Lower chest: The heart is normal in size. Lung bases are clear. Liver: The liver is mildly enlarged measuring 20.5 cm. Gallbladder/Biliary Tree: Gallbladder surgically absent. Bile ducts are normal. Pancreas: Normal. Spleen: Normal. Adrenal Glands: Normal Kidneys/Ureters/Bladder: Kidneys are normal in size. There is a punctate calculus in the inferior left renal pole. No hydronephrosis. Ureters are normal. The bladder is mildly distended. Reproductive Organs: Uterus is anteverted. No adnexal mass. Stomach, small bowel, and colon: The stomach, small bowel, appendix, and colon are normal. Vasculature: Abdominal aorta is normal in caliber. Lymph Nodes: No lymphadenopathy. Peritoneum and retroperitoneum: No free fluid or free air. Bones: Inferior endplate compression fracture of T12 with 40 percent height loss anteriorly. No retropulsion. There is lower thoracic and lumbar degenerative disc disease. Miscellaneous: No abdominal wall hematoma. CT lumbar spine: There is an acute appearing inferior endplate compression fracture of T12 with 40 percent height loss anteriorly and no retropulsion of cortex. This is new from MRI lumbar spine 07/07/2018. No other fracture. Alignment is normal. There is mild to moderate disc space narrowing throughout the lower thoracic and lumbar spine. Vacuum disc phenomenon at multiple levels. Mild facet arthrosis throughout the lumbar spine. T12-L1: No significant disc bulge or canal or foraminal narrowing. L1-L2: Small broad-based disc bulge. Mild canal canal and right foraminal narrowing. L2-L3: Small disc bulge and posterior endplate proliferation combines with prominent posterior epidural fat. This results in mild canal and bilateral foraminal narrowing. L3-L4: There is a broad-based disc bulge and prominent posterior epidural fat. This results in mild canal narrowing and moderate bilateral foraminal narrowing. L4-L5: Broad-based disc bulge. Mild facet arthrosis with ligamentum flavum thickening and prominent posterior epidural fat. This results in moderate canal and bilateral foraminal narrowing. L5-S1: There is posterior endplate proliferation and mild facet arthrosis. Mild canal narrowing. Moderate bilateral foraminal narrowing. The urinary bladder is distended. Mild scattered calcifications in the abdominal aorta. IMPRESSION: 1. Acute appearing T12 compression fracture with 40 percent height loss and no retropulsion of cortex. 2. No abdominal hematoma or intra-abdominal/pelvic abnormality. Electronically signed by: Octavia Carty MD (11/28/2021 5:09 PM) [id number] DICTATED and SIGNED BY: OCTAVIA CARTY MD DATE: 11/28/21 [id number] 0 Course & Med Decision Making: Course & Med Decision Making Pertinent Labs and Imaging studies reviewed. (See chart for details) See HPI. Alert and oriented x4. Ambulatory with a steady gait. She does have a old healing dark-colored bruising that is the size of around a baseball to the lower pannus area with some tenderness with palpation. Abdomen is soft otherwise and nontender. She has focal bony lumbar tenderness which is normal. Full range motion of the neck. Denies loss of bowel bladder. No cervical or thoracic focal bony tenderness. There is no bruising or step-off felt to the sp ine. No deformity. No trauma to the back of the neck. No focal weakness of any extremity. Neurologically intact. CT lumbar shows: IMPRESSION: 1. Acute appearing T12 compression fracture with 40 percent height loss and no retropulsion of cortex. 2. No abdominal hematoma or intra-abdominal/pelvic abnormality. I spoke to Huyen SULLIVAN with Dr. Cazares who states that these patients are usually fine to go home and follow-up with Dr. Heard. I will refer the patient to Dr. Heard. Again the patient is neurologically stable with no deficits and does not complain of any pain or tenderness to this area. 1725: Nurse states that the patient has left AMA before results can be given. Patient states that she was leaving because I was not going to write her for mor e narcotics. Patient was called but there was no answer and unable to leave a message. I spoke to Valeria VITALE who is going to try to call the patient later to let her know about her CT results and to follow-up with Dr. Heard. [] Zeus Disclaimer: Dragon Disclaimer: This electronic medical record was generated, in whole or in part, using a voice recognition dictation system. Departure Departure Impression: Primary Impression: Chronic pain Qualified Codes: G89.29 - Other chronic pain Additional Impressions: Fall Qualified Codes: W19.XXXA - Unspecified fall, initial encounter Drug-seeking behavior Left against medical advice Thoracic compression fracture Qualified Codes: S22.080A - Wedge compression fracture of T11-T12 vertebra, initial encounter for closed fracture Disposition: 07 LEFT AGAINST MEDICAL ADVICE Condition: STABLE Referrals: NO PCP (PCP) TITA HEARD MD, DEANNA M APRN Nov 28, 2021 16:24
--- NOTE | 2021-11-28 17:12 | RAD ---
Exam: 1. CT abdomen/pelvis without intravenous contrast 2. CT lumbar spine reconstruction without contrast Indication: Fall with large bruise to mid and left lower abdomen Comparison: MR lumbar spine 07/07/2018 Technique: Helical CT imaging performed of the abdomen and pelvis without the use of intravenous cont rast. Sagittal and coronal reformats were obtained. CT lumbar spine reconstruction without contrast w as obtained with axial, sagittal, and coronal reformats. One or more of the following individualized dose reduction techniques were utilized for this examinat ion: 1. Automated exposure control 2. Adjustment of the mA and/or kV according to patient size 3. Use of iterative reconstruction technique. Findings: CT abdomen and pelvis: Inherently limited evaluation without intravenous contrast. Lower chest: The heart is normal in size. Lung bases are clear. Liver: The liver is mildly enlarged measuring 20.5 cm. Gallbladder/Biliary Tree: Gallbladder surgically absent. Bile ducts are normal. Pancreas: Normal. Spleen: Normal. Adrenal Glands: Normal Kidneys/Ureters/Bladder: Kidneys are normal in size. There is a punctate calculus in the inferior lef t renal pole. No hydronephrosis. Ureters are normal. The bladder is mildly distended. Reproductive Organs: Uterus is anteverted. No adnexal mass. Stomach, small bowel, and colon: The stomach, small bowel, appendix, and colon are normal. Vasculature: Abdominal aorta is normal in caliber. Lymph Nodes: No lymphadenopathy. Peritoneum and retroperitoneum: No free fluid or free air. Bones: Inferior endplate compression fracture of T12 with 40 percent height loss anteriorly. No retro pulsion. There is lower thoracic and lumbar degenerative disc disease. Miscellaneous: No abdominal wall hematoma. CT lumbar spine: There is an acute appearing inferior endplate compression fracture of T12 with 40 percent height loss anteriorly and no retropulsion of cortex. This is new from MRI lumbar spine 07/07/2018. No other frac ture. Alignment is normal. There is mild to moderate disc space narrowing throughout the lower thorac ic and lumbar spine. Vacuum disc phenomenon at multiple levels. Mild facet arthrosis throughout the l umbar spine. T12-L1: No significant disc bulge or canal or foraminal narrowing. L1-L2: Small broad-based disc bulge. Mild canal canal and right foraminal narrowing. L2-L3: Small disc bulge and posterior endplate proliferation combines with prominent posterior epidur al fat. This results in mild canal and bilateral foraminal narrowing. L3-L4: There is a broad-based disc bulge and prominent posterior epidural fat. This results in mild c anal narrowing and moderate bilateral foraminal narrowing. L4-L5: Broad-based disc bulge. Mild facet arthrosis with ligamentum flavum thickening and prominent p osterior epidural fat. This results in moderate canal and bilateral foraminal narrowing. L5-S1: There is posterior endplate proliferation and mild facet arthrosis. Mild canal narrowing. Mode rate bilateral foraminal narrowing. The urinary bladder is distended. Mild scattered calcifications in the abdominal aorta. IMPRESSION: 1. Acute appearing T12 compression fracture with 40 percent height loss and no retropulsion of kimberley x. 2. No abdominal hematoma or intra-abdominal/pelvic abnormality. Electronically signed by: Octavia Carty MD (11/28/2021 5:09 PM) [id number]
== END 2021-11-28 17:28 | disposition left against medical advice (07) ==
LOC: ER 15:26
DX: S22.080A Wedge compression fracture of T11-T12 vertebra, initial encounter for closed fracture (principal); Z76.5 Malingerer [conscious simulation]; G89.29 Other chronic pain; J44.9 Chronic obstructive pulmonary disease, unspecified; K21.9 Gastro-esophageal reflux disease without esophagitis; E78.00 Pure hypercholesterolemia, unspecified; W01.0XXA Fall on same level from slipping, tripping and stumbling without subsequent striking against object, initial encounter; Y93.89 Activity, other specified; Y92.89 Other specified places as the place of occurrence of the external cause; Y99.8 Other external cause status
CPT/HCPCS: 74176; 99284-25

== ENCOUNTER 2022-01-09 11:11 | Emergency (ER) | payer MEDICAID ==
[~2022-01-09] VITALS: Ht 165.1 cm; Wt 160.0 kg
[~2022-01-09 11:11] MED LIST changes: -ACET1TAB33 PO; +ACET1TAB56 PO
[2022-01-09] MEDS ORDERED: LIDO700A21 TP (13:29)
[2022-01-09] MEDS ORDERED: CYCL5TAB PO (13:29)
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
[2022-01-09 14:00] VITALS: BP 126/74
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
== END 2022-01-09 14:10 | disposition home or self-care (01) ==
LOC: ER 11:11
DX: S16.1XXA Strain of muscle, fascia and tendon at neck level, initial encounter (principal); M54.41 Lumbago with sciatica, right side; J44.9 Chronic obstructive pulmonary disease, unspecified; K21.9 Gastro-esophageal reflux disease without esophagitis; E78.00 Pure hypercholesterolemia, unspecified; G89.29 Other chronic pain; Z88.5 Allergy status to narcotic agent; Z88.6 Allergy status to analgesic agent; Z88.8 Allergy status to other drugs, medicaments and biological substances; V49.59XA Passenger injured in collision with other motor vehicles in traffic accident, initial encounter; Y93.89 Activity, other specified; Y92.488 Other paved roadways as the place of occurrence of the external cause; Y99.8 Other external cause status
CPT/HCPCS: 72125; 72131; 99284-25